=== PATIENT | male | born 1945 | race Caucasian/White ===

== ENCOUNTER 2017-01-24 20:37 | Emergency (ER) | payer MEDICARE ==
[2017-01-24] MEDS ORDERED: RX INFO: IV CONTRAST WAS GIVEN 1 EACH MISC MISCELLANE PRN (20:59)
[2017-01-24] MEDS ORDERED: SODIUM CHLORIDE 0.9% 1,000 ML IV STA (20:59)
[2017-01-24] MEDS ORDERED: HYDROmorphone 1 MG/ML 1 ML SYRINGE IVP STA ×3 (20:59→23:39)
[2017-01-24] MEDS ORDERED: ACETAMINOPHEN IV (For NPO) 1,000 MG in EMPTY BAG 1 BAG IVPB ONE (20:59)
[2017-01-24] MEDS ORDERED: ONDANSETRON 4 MG/2 ML VIAL IVP STA (20:59)
--- NOTE | 2017-01-24 21:02 | ED ---
Abdominal Pain HPI - General Chief Complaint: Abdominal Pain Stated Complaint: abd pain Time Seen by Provider: 01/24/17 20:54 Source: patient, RN notes reviewed Mode of arrival: wheelchair Limitations: no limitations - History of Present Illness Initial Comments: 71 yo female presents to the ER with cc of left sided abdominal pain x 1 day. Patient states that 2 hours ago he developed this left-sided abdominal pain. Patient states the pain is moderate it radiates to the back. Patient is eating changes in urination. Patient states it is tender to touch. Patient denies any cough cold runny nose with it. Patient denies any history of a pain like this in the past. Patient states that he hasn't had any other symptoms with this. Patient states just having this terrible pain to the left lower quadrant. There has been no other symptoms in the patient. Patient denies any recent shortness of breath, chest pain, back pain, nausea vomiting, numbness or tingling, dysuria or hematuria, constipation or diarrhea, headaches or visual changes, or any other current symptoms. - Related Data Home Medications Medication Instructions Recorded Confirmed Warfarin [Coumadin] 2.5 mg PO SA 02/15/16 01/24/17 Alfuzosin HCl [Alfuzosin HCl ER] 10 mg PO DAILY 01/24/17 01/24/17 Aspirin EC [Ecotrin Low Dose] 81 mg PO DAILY 01/24/17 01/24/17 Atenolol [Tenormin] 50 mg PO BID 01/24/17 01/24/17 Atorvastatin Calcium [Lipitor] 10 mg PO HS 01/24/17 01/24/17 Diltiazem HCl [Cartia Xt] 180 mg PO DAILY 01/24/17 01/24/17 Gabapentin [Neurontin] 100 mg PO TID 01/24/17 01/24/17 HYDROcodone/APAP 10-325MG [[place] 1 tab PO Q8H PRN 01/24/17 01/24/17 10-325] Latanoprost Ophth [Xalatan 0.005%] 1 drops BOTH EYES HS 01/24/17 01/24/17 Metformin(Unknown Dose) 1 tab PO BID 01/24/17 01/24/17 Warfarin [Coumadin] 5 mg PO SUMOTUWETHFR 01/24/17 01/24/17 Previous Rx's Medication Instructions Recorded Hydrocodone/Acetaminophen [[place] 1 each PO Q6HR PRN #20 tab 01/24/17 5-325] Hydrocodone/Acetaminophen [[place] 1 each PO Q6HR PRN #20 tab 01/24/17 5-325] Ondansetron Odt [Zofran ODT] 4 mg PO Q8HR PRN #20 tab 01/24/17 Tamsulosin [Flomax] 0.4 mg PO DAILY #5 cap 01/24/17 Allergies Allergy/AdvReac Type Severity Reaction Status Date / Time No Known Allergies Allergy Verified 01/24/17 21:12 Review of Systems ROS Statement: Those systems with pertinent positive or pertinent negative responses have been documented in the HPI. ROS Other: All systems not noted in ROS Statement are negative. Past Medical History Past Medical History: Atrial Fibrillation, Coronary Artery Disease (CAD), Diabetes Mellitus, Hyperlipidemia, Hypertension History of Any Multi-Drug Resistant Organisms: None Reported Past Surgical History: Heart Catheterization Past Psychological History: No Psychological Hx Reported Smoking Status: Never smoker Past Alcohol Use History: None Reported Past Drug Use History: None Reported General Exam - General Exam Comments Initial Comments: General: The patient is awake and alert, in no distress, and does not appear acutely ill. Eye: Pupils are equal, round and reactive to light, extra-ocular movements are intact; there is normal conjunctiva bilaterally. No signs of icterus. Ears, nose, mouth and throat: There are moist mucous membranes and no oral lesions. Neck: The neck is supple, there is no tenderness. Cardiovascular: There is a regular rate and rhythm. No murmur, rub or gallop is appreciated. Respiratory: Lungs are clear to auscultation, respirations are non-labored, breath sounds are equal. No wheezes, stridor, rales, or rhonchi. Gastrointestinal: Soft, non-distended, left lower quadrant tenderness of the abdomen without masses or organomegaly noted. There is no rebound or guarding present. No CVA tenderness. Bowel sounds are unremarkable. Back: There is no tenderness to palpation in the midline. There is no obvious deformity. No rashes noted. Musculoskeletal: Normal ROM, no tenderness, There is no pedal edema. There is no calf tenderness or swelling. Sensation intact. Pulses equal bilaterally 2+. Neurological: CN II-XII intact, There are no obvious motor or sensory deficits. Coordination appears grossly intact. Speech is normal. Skin: Skin is warm and dry and no rashes or lesions are noted. Psychiatric: Cooperative, appropriate mood & affect, normal judgment. Limitations: no limitations Course Vital Signs 01/24/17 01/24/17 01/24/17 20:43 21:34 22:28 Temperature 99.2 F 99.2 F 98.9 F Pulse Rate 113 H 103 H 100 Respiratory 20 20 18 Rate Blood Pressure 149/79 168/90 122/83 O2 Sat by Pulse 96 95 94 L Oximetry Medical Decision Making - Medical Decision Making 71-year-old male presents for left lower quadrant tenderness of the abdomen. At this time CAT scan is reviewed that does show a left ureteral calculus. At this time patient does have blood in the urine and is feeling better with medication. We did discuss the fluid noticed on the CAT scan about the fluid around the heart. He sees his medical coding technician. We did discuss follow-up within the morning for a echocardiogram. Family stated they understood the plan. Patient is feeling better at this time and will be discharged home. All his questions have been answered. - Lab Data Result diagrams: 01/24/17 21:20 01/24/17 21:20 Lab Results 01/24/17 01/24/17 01/24/17 Range/Units 21:20 21:20 21:20 WBC 10.2 (3.8-10.6) k/uL RBC 4.79 (4.30-5.90) m/uL Hgb 14.5 (13.0-17.5) gm/dL Hct 42.9 (39.0-53.0) % MCV 89.5 (80.0-100.0) fL MCH 30.3 (25.0-35.0) pg MCHC 33.8 (31.0-37.0) g/dL RDW 14.0 (11.5-15.5) % Plt Count 262 (150-450) k/uL Neutrophils % 76 % Lymphocytes % 16 % Monocytes % 5 % Eosinophils % 2 % Basophils % 0 % Neutrophils # 7.7 (1.3-7.7) k/uL Lymphocytes # 1.6 (1.0-4.8) k/uL Monocytes # 0.5 (0-1.0) k/uL Eosinophils # 0.2 (0-0.7) k/uL Basophils # 0.0 (0-0.2) k/uL PT (9.0-12.0) sec INR (<1.1) APTT (22.0-30.0) sec Sodium 143 (137-145) mmol/L Potassium 4.2 (3.5-5.1) mmol/L Chloride 105 (98-107) mmol/L Carbon Dioxide 23 (22-30) mmol/L Anion Gap 15 mmol/L BUN 20 (9-20) mg/dL Creatinine 1.15 (0.66-1.25) mg/dL Est GFR (MDRD) Af Amer >60 (>60 ml/min/1.73 sqM) Est GFR (MDRD) Non-Af >60 (>60 ml/min/1.73 sqM) Glucose 170 H (74-99) mg/dL Plasma Lactic Acid John Paul (0.7-2.0) mmol/L Calcium 9.5 (8.4-10.2) mg/dL Total Bilirubin 0.7 (0.2-1.3) mg/dL AST 41 (17-59) U/L ALT 51 (21-72) U/L Alkaline Phosphatase 92 (38-126) U/L Total Protein 8.2 (6.3-8.2) g/dL Albumin 4.6 (3.5-5.0) g/dL Amylase 80 (30-110) U/L Lipase 180 (23-300) U/L Urine Color Urine Appearance (Clear) Urine pH (5.0-8.0) Ur Specific [place] (1.001-1.035) Urine Protein (Negative) Urine Glucose (UA) (Negative) Urine Ketones (Negative) Urine Blood (Negative) Urine Nitrate (Negative) Urine Bilirubin (Negative) Urine Urobilinogen (<2.0) mg/dL Ur Leukocyte Esterase (Negative) Urine RBC (0-5) /hpf Urine WBC (0-5) /hpf Ur Squamous Epith Cells (0-4) /hpf Urine Mucus (None) /hpf Acetone, Qual (Negative) Blood Type O Positive Blood Type Recheck No Antibody Screen NEGATIVE Spec Expiration Date 01/27/2017 - 231901/24/17 01/24/17 01/24/17 Range/Units 21:20 21:20 21:20 WBC (3.8-10.6) k/uL RBC (4.30-5.90) m/uL Hgb (13.0-17.5) gm/dL Hct (39.0-53.0) % MCV (80.0-100.0) fL MCH (25.0-35.0) pg MCHC (31.0-37.0) g/dL RDW (11.5-15.5) % Plt Count (150-450) k/uL Neutrophils % % Lymphocytes % % Monocytes % % Eosinophils % % Basophils % % Neutrophils # (1.3-7.7) k/uL Lymphocytes # (1.0-4.8) k/uL Monocytes # (0-1.0) k/uL Eosinophils # (0-0.7) k/uL Basophils # (0-0.2) k/uL PT 29.4 H (9.0-12.0) sec INR 3.0 (<1.1) APTT 36.4 H (22.0-30.0) sec Sodium (137-145) mmol/L Potassium (3.5-5.1) mmol/L Chloride (98-107) mmol/L Carbon Dioxide (22-30) mmol/L Anion Gap mmol/L BUN (9-20) mg/dL Creatinine (0.66-1.25) mg/dL Est GFR (MDRD) Af Amer (>60 ml/min/1.73 sqM) Est GFR (MDRD) Non-Af (>60 ml/min/1.73 sqM) Glucose (74-99) mg/dL Plasma Lactic Acid John [place] 2.0 (0.7-2.0) mmol/L Calcium (8.4-10.2) mg/dL Total Bilirubin (0.2-1.3) mg/dL AST (17-59) U/L ALT (21-72) U/L Alkaline Phosphatase (38-126) U/L Total Protein (6.3-8.2) g/dL Albumin (3.5-5.0) g/dL Amylase (30-110) U/L Lipase (23-300) U/L Urine Color Yellow Urine Appearance Clear (Clear) Urine pH 5.0 (5.0-8.0) Ur Specific [place] 1.021 (1.001-1.035) Urine Protein Trace H (Negative) Urine Glucose (UA) Negative (Negative) Urine Ketones Negative (Negative) Urine Blood Moderate H (Negative) Urine Nitrate Negative (Negative) Urine Bilirubin Negative (Negative) Urine Urobilinogen <2.0 (<2.0) mg/dL Ur Leukocyte Esterase Negative (Negative) Urine RBC 90 H (0-5) /hpf Urine WBC 3 (0-5) /hpf Ur Squamous Epith Cells <1 (0-4) /hpf Urine Mucus Rare H (None) /hpf Acetone, Qual (Negative) Blood Type Blood Type Recheck Antibody Screen Spec Expiration Date 01/24/17 Range/Units 21:20 WBC (3.8-10.6) k/uL RBC (4.30-5.90) m/uL Hgb (13.0-17.5) gm/dL Hct (39.0-53.0) % MCV (80.0-100.0) fL MCH (25.0-35.0) pg MCHC (31.0-37.0) g/dL RDW (11.5-15.5) % Plt Count (150-450) k/uL Neutrophils % % Lymphocytes % % Monocytes % % Eosinophils % % Basophils % % Neutrophils # (1.3-7.7) k/uL Lymphocytes # (1.0-4.8) k/uL Monocytes # (0-1.0) k/uL Eosinophils # (0-0.7) k/uL Basophils # (0-0.2) k/uL PT (9.0-12.0) sec INR (<1.1) APTT (22.0-30.0) sec Sodium (137-145) mmol/L Potassium (3.5-5.1) mmol/L Chloride (98-107) mmol/L Carbon Dioxide (22-30) mmol/L Anion Gap mmol/L BUN (9-20) mg/dL Creatinine (0.66-1.25) mg/dL Est GFR (MDRD) Af Amer (>60 ml/min/1.73 sqM) Est GFR (MDRD) Non-Af (>60 ml/min/1.73 sqM) Glucose (74-99) mg/dL Plasma Lactic Acid [place] (0.7-2.0) mmol/L Calcium (8.4-10.2) mg/dL Total Bilirubin (0.2-1.3) mg/dL AST (17-59) U/L ALT (21-72) U/L Alkaline Phosphatase (38-126) U/L Total Protein (6.3-8.2) g/dL Albumin (3.5-5.0) g/dL Amylase (30-110) U/L Lipase (23-300) U/L Urine Color Urine Appearance (Clear) Urine pH (5.0-8.0) Ur Specific [place] (1.001-1.035) Urine Protein (Negative) Urine Glucose (UA) (Negative) Urine Ketones (Negative) Urine Blood (Negative) Urine Nitrate (Negative) Urine Bilirubin (Negative) Urine Urobilinogen (<2.0) mg/dL Ur Leukocyte Esterase (Negative) Urine RBC (0-5) /hpf Urine WBC (0-5) /hpf Ur Squamous Epith Cells (0-4) /hpf Urine Mucus (None) /hpf Acetone, Qual Negative (Negative) Blood Type Blood Type Recheck Antibody Screen Spec Expiration Date - Radiology Data Radiology results: report reviewed, image reviewed Disposition Clinical Impression: Pericardial cyst, Left ureteral calculus Disposition: HOME SELF-CARE Condition: Stable Instructions: Kidney Stones (ED) Additional Instructions: Please use medication as discussed. Please follow up with family doctor if symptoms have not improved over the next two days. Please return to the emergency room if your symptoms increase or worsen or for any other concerns. Please contact her medical coding technician in the morning regarding her CT results of the pericardial cyst for follow-up. Prescriptions: Hydrocodone/Acetaminophen [[place] 5-325] 1 each PO Q6HR PRN #20 tab PRN Reason: Pain Hydrocodone/Acetaminophen [[place] 5-325] 1 each PO Q6HR PRN #20 tab PRN Reason: Pain Ondansetron Odt [Zofran ODT] 4 mg PO Q8HR PRN #20 tab PRN Reason: Nausea Tamsulosin [Flomax] 0.4 mg PO DAILY #5 cap Referrals: Misael Oro DO [Primary Care Provider] - 1-2 days Time of Disposition: 23:37
[2017-01-24 21:36] LABS: Basophils % (A) 0 %; CH 30.5; CHCM 34.2; Eosinophils # (A) 0.2 k/uL (0-0.7); Eosinophils % (A) 2 %; HCT 42.9 % (39.0-53.0); HDW 3.05; HGB 14.5 gm/dL (13.0-17.5); Luc # (Auto) 0.15; Luc % (Auto) 2; Lymphocytes # (A) 1.6 k/uL (1.0-4.8); Lymphocytes % (A) 16 %; MCH 30.3 pg (25.0-35.0); MCHC 33.8 g/dL (31.0-37.0); MCV 89.5 fL (80.0-100.0); Mean Platelet Volume 7.3; Monocytes # (A) 0.5 k/uL (0-1.0); Monocytes % (A) 5 %; Neutrophils # (A) 7.7 k/uL (1.3-7.7); Neutrophils % (A) 76 %; RBC 4.79 m/uL (4.30-5.90); WBC 10.2 k/uL (3.8-10.6); WBC (Perox) 9.77
[2017-01-24 21:46] LABS: Appearance,Urine Clear (Clear); Bilirubin,Urine Negative (Negative); Glucose,Urine (UA) Negative (Negative); Ketones,Urine Negative (Negative); Leukocyte Esterase,Urine Negative (Negative); Mucus,Urine Rare /hpf; Nitrite,Urine Negative (Negative); Particle Count 1364; Protein,Urine Trace (Negative); RBC,Urine 90 /hpf (0-5); Specific Gravity,Urine 1.021 (1.001-1.035); Squamous Epithelial Cell,Urine <1 /hpf (0-4); UA Billing (MACRO vs. MICRO) MICRO; Urobilinogen,Urine <2.0 mg/dL (<2.0); WBC,Urine 3 /hpf (0-5)
[2017-01-24 21:51] LABS: Partial Thromboplastin Time 36.4 sec (22.0-30.0); Prothrombin Time 29.4 sec (9.0-12.0)
[2017-01-24 21:52] LABS: ALT 51 U/L (21-72); AST 41 U/L (17-59); Alkaline Phosphatase 92 U/L (38-126); Amylase 80 U/L (30-110); Anion Gap 15 mmol/L; Blood Urea Nitrogen 20 mg/dL (9-20); Calcium 9.5 mg/dL (8.4-10.2); Carbon Dioxide 23 mmol/L (22-30); Chloride 105 mmol/L (98-107); Glucose 170 mg/dL (74-99); Non-African American GFR(MDRD) >60 (>60 ml/min/1.73 sqM); Potassium 4.2 mmol/L (3.5-5.1); Sodium 143 mmol/L (137-145); Total Bilirubin 0.7 mg/dL (0.2-1.3); Total Protein 8.2 g/dL (6.3-8.2)
[2017-01-24 22:31] VITALS: RESP 18
[2017-01-24] MEDS ORDERED: KETOROLAC 30 MG/ML 1 ML VIAL IVP STA (23:03)
--- NOTE | 2017-01-24 23:05 | CT ---
EXAM: CT Abdomen and Pelvis With Intravenous Contrast. CLINICAL HISTORY: Reason: Pain TECHNIQUE: Axial computed tomography images of the abdomen and pelvis with intravenous contrast. CTDI is 37.88 mGy and DLP is 1603 mGy-cm COMPARISON: No relevant prior studies available. FINDINGS: Lower thorax: Linear subpleural opacity suggesting atelectasis or scarring at the posterior medial lung bases. There is coronary artery calcification present. Thin-walled 2.4 cm low-density focus along side the right atrium suggests either the presence of some pericardial fluid or a small pericardial cyst, just anterior and superior to which there is a thin low-density rim of additional fluid or second possible cyst. ABDOMEN: Liver: Mildly diminished hepatic density consistent with hepatic steatosis. Gallbladder and bile ducts: Unremarkable. No calcified stones. No ductal dilation. Pancreas: Slight fatty infiltration of the pancreas within which there is a 16 mm fat density focus in the uncinate process, suggesting a small lipoma. Spleen: Unremarkable. No splenomegaly. Adrenals: Unremarkable. No mass. Kidneys and ureters: Tiny 1-2 mm distal left ureter stone just proximal to the UVJ with mild hydronephrosis and hydroureter, perinephric and periureteral stranding, and delay in enhancement and excretion from the left kidney compared to the right. An exophytic 2.9 cm posterior upper to mid left renal cyst is seen. The right kidney is normal. PELVIS: Bladder: Unremarkable. No mass. Reproductive: Small calcifications are seen centrally within the prostate gland. Appendix: No findings to suggest acute appendicitis. ABDOMEN + PELVIS: Stomach and bowel: Scattered colonic diverticulosis most notably distally, without evidence of diverticulitis or intestinal obstruction. Peritoneum: Unremarkable. No significant fluid collection. No free air. Lymph nodes: Unremarkable. No enlarged lymph nodes. Vasculature: Multifocal atherosclerotic calcifications throughout. Bones: Mild reverse S-shaped curvature of the lower thoracic and lumbar spine with multilevel degenerative changes present. No acute fracture. IMPRESSION: 1. Tiny distal left ureter stone with mild secondary signs of urinary tract obstruction. 2. Additional findings, including coronary artery calcification and possible one or 2 small right sided pericardial cysts versus fluid, as above.
[2017-01-24] MEDS ORDERED: ONDANSETRON 4 MG ODT STARTER PACK 2 TAB BTL PO STA (23:39)
[2017-01-24] MEDS ORDERED: TAMSULOSIN 0.4 MG CAP.ER.24H PO STA (23:39)
[2017-01-24] MEDS ORDERED: traMADol 50 MG STARTER PACK 3 TAB BTL PO STA (23:39)
[2017-01-24 23:48] VITALS: BP 125/71; PULSE 98; TEMP 98.3
== END 2017-01-24 23:57 | disposition home or self-care (01) ==
LOC: EC 20:37
DX: N13.2 Hydronephrosis with renal and ureteral calculous obstruction (principal); I25.10 Atherosclerotic heart disease of native coronary artery without angina pectoris; E11.9 Type 2 diabetes mellitus without complications; I10 Essential (primary) hypertension; E78.5 Hyperlipidemia, unspecified; Z98.61 Coronary angioplasty status; Z79.899 Other long term (current) drug therapy; Z79.82 Long term (current) use of aspirin; I48.91 Unspecified atrial fibrillation; Z79.84 Long term (current) use of oral hypoglycemic drugs
CPT/HCPCS: 36415; 86900; 86901; 80053; 82150; 82009; 83605; 83690; 85025; 85610; 85730; 86850; 81001; 87040; 87086; 74177; 96374; 96375; 96376; 96361; 99284; J2405; J1885; J1170; Q9967; J0131; S0119

== ENCOUNTER 2018-03-12 07:12 | Day surgery (SDC) | payer MEDICARE ==
[2018-03-02 13:42] VITALS: BMI 34.2
[~2018-03-12 07:12] MED LIST: LACTATED RINGERS 1,000 ML IV SCH; SODIUM CHLORIDE 0.9% 1,000 ML IV SCH
[2018-03-12 07:54] LABS: Glucose,Whole Blood 145 mg/dL (75-99)
[2018-03-12 08:18] LABS: Basophils % (A) 0 %; Eosinophils # (A) 0.3 k/uL (0-0.7); Eosinophils % (A) 4 %; HCT 38.2 % (39.0-53.0); HGB 13.5 gm/dL (13.0-17.5); Lymphocytes # (A) 1.7 k/uL (1.0-4.8); Lymphocytes % (A) 21 %; MCH 30.3 pg (25.0-35.0); MCHC 35.2 g/dL (31.0-37.0); MCV 86.1 fL (80.0-100.0); Monocytes # (A) 0.5 k/uL (0-1.0); Monocytes % (A) 6 %; Neutrophils # (A) 5.2 k/uL (1.3-7.7); Neutrophils % (A) 66 %; Platelet Count 289 k/uL (150-450); RBC 4.44 m/uL (4.30-5.90); RDW 14.4 % (11.5-15.5); WBC 7.8 k/uL (3.8-10.6)
[2018-03-12 08:23] LABS: INR 2.8 (<1.2); Prothrombin Time 25.3 sec (9.0-12.0)
[2018-03-12] MEDS ORDERED: ePHEDrine SULFATE/0.9% NACL/PF 50 MG/5 ML SYRINGE IV ONE (08:23)
[2018-03-12] MEDS ORDERED: IV FLUID CONTINUATION 900 ML IV ONE (08:23)
[2018-03-12] MEDS ORDERED: PROTAMINE SULFATE 10 MG/ML 5 ML VIAL IV ONE (08:23)
[2018-03-12] MEDS ORDERED: PHENYLEPHRINE-0.9% NACL SYG 1 MG/10 ML SYRINGE ONE (08:23)
[2018-03-12] MEDS ORDERED: MIDAZOLAM 2 MG/2 ML VIAL ONE (08:23)
[2018-03-12] MEDS ORDERED: SUCCINYLCHOLINE CHLORIDE 100 MG/5 ML SYR IV ONE (08:23)
[2018-03-12] MEDS ORDERED: fentaNYL (PF) 50 MCG/ML 2 ML AMP ONE (08:23)
[2018-03-12] MEDS ORDERED: LIDOCAINE 1% INJ 10MG/ML (20 ML MDV) ONE (08:23)
[2018-03-12] MEDS ORDERED: PROPOFOL 10 MG/ML 20 ML VIAL IV ONE (08:23)
[2018-03-12] MEDS ORDERED: HEPARIN SODIUM,PORCINE 10,000 UNIT/ML 1 ML VIAL ONE (08:23)
[2018-03-12 08:30] LABS: Anion Gap 16 mmol/L; Blood Urea Nitrogen 19 mg/dL (9-20); Calcium 9.5 mg/dL (8.4-10.2); Carbon Dioxide 22 mmol/L (22-30); Chloride 107 mmol/L (98-107); Glucose 148 mg/dL (74-99); Potassium 4.5 mmol/L (3.5-5.1); Sodium 145 mmol/L (137-145)
[2018-03-12] MEDS ORDERED: LIDOCAINE 2% INJ 20 MG/ML SQ ONE ×2 (09:12→11:53)
[2018-03-12] MEDS ORDERED: HEPARIN SOD,PORK IN 0.45% NACL 25,000 UNIT in 0.45% NACL 1 500ML.BAG IV ONE (09:14)
[2018-03-12] MEDS ORDERED: IOPAMIDOL-370 100ML BTL INJ ONE (11:53)
[2018-03-12] MEDS ORDERED: SODIUM CHLORIDE 0.9% 500 ML IV ONE (12:15)
[2018-03-12] MEDS ORDERED: HYDROcodone/APAP 5-325MG 1 EACH TAB PO PRN (13:08)
[2018-03-12] MEDS ORDERED: ACETAMINOPHEN TAB 325 MG TAB PO PRN (13:10)
[2018-03-12] MEDS ORDERED: ACETAMINOPHEN IV (For NPO) 1,000 MG in EMPTY BAG 1 BAG IVPB ONE (13:30)
--- NOTE | 2018-03-12 13:35 | P.PCN ---
Preoperative Diagnosis: Indication for the procedure Persistent symptomatic atrial fibrillation with RVR, difficult rate control Procedures performed Invasive hemodynamic monitoring while general anesthesia, right femoral arterial line for monitoring and sampling Comprehensive diagnostic EP study without attempted arrhythmia induction CS pacing and recording Catheter the mapping of the tachycardia (NOT 3D mapping) Intracardiac echocardiography Transseptal catheterization Pulmonary vein isolation with transseptal and comprehensive EPS, [id number] Linear ablation for A. fib, [id number] Electrical cardioversion, external Procedure details Patient was brought to the EP lab in a fasting state. Written informed consent was obtained prior to the procedure. Procedure performed under general anesthesia After initial muscle relaxant use, muscle relaxants were not given thereafter in order to assess phrenic nerve during procedure Patient prepped and draped as per protocol Full cryo-set up with standard preparation of the cryoablation tools done Femoral Venous access obtained on the right and left groins Sheaths placed Diagnostic catheters for the high right atrium, phrenic nerve stimulation and pacing, His bundle, RV and coronary sinus placed Intracardiac echo catheter placed Long sheath placed in the right atrium Left and right transseptal catheterization performed under intracardiac echo guidance Intravenous heparin with aCT above 300 Later, catheter positioning and balloon positioning under intracardiac echo Baseline measurements Patient was in atrial fibrillation at the start of the study. 12-lead ECG suggested organized atrial tachycardia home intracardiac (suggested atrial fibrillation After electrical cardioversion AH interval 82 ms HV interval 50 ms, QRS 103 ms, QT interval 403 ms Sinus cycle length 990 ms, MS interval 185 ms Comprehensive diagnostic EP study with drug infusion Atrial pacing performed from the high right atrium and the coronary sinus Sinus node recovery times a 600 504 100 ms were 1216, 1051 and 1342 ms. Corresponding corrected sinus node recovery times were within normal limits AV node Wenckebach block 420 ms Slow pathway conduction 400ms VA Wenckebach block 550 ms Transseptal catheterization performed RA pressure 26/18/22 LA pressure 34/9/23 Transseptal catheterization performed with standard sheath. The cryoablation sheath was then placed with an over the wire exchange without any acute complications. All 4 pulmonary veins were isolated in the following sequence: Left superior followed by left inferior followed by right superior followed by right inferior The cryo-ablation balloon was placed at the os of each vein 1.5 mL of IV dye was injected to confirm an occluded vein Goal during cryoablation was to achieve -30C in the first 30 seconds. If not the balloon was repositioned to obtain this result After completion of Cryoblation with durations from 180-240 seconds, entrance block was confirmed with the Attain circular catheter in a roving fashion around the antrum of the pulmonary veins Phrenic nerve pacing was performed from the SVC, right innominate vein area and diaphragm voltage was monitored as well as manually Parameter goals for each cryo freeze -30C by 30 seconds -40C by 60 seconds Mediated between minus 40-55 Thaw time greater than 10 seconds Balloon visualized by intracardiac echo to ensure that the proximal one third was within the left atrium/antrum Left superior pulmonary vein 3 minute lesion, complete isolation Left inferior pulmonary vein 3 minutes followed by 3 minutes of cryoablation, complete isolation Right superior pulmonary vein, during phrenic nerve pacing Total of 345 seconds of Cryoblation, 148 seconds followed by 77 seconds seconds followed by 120 seconds Right inferior pulmonary vein, during phrenic nerve pacing 3 minutes followed by 2 minutes, cryo lesions, complete isolation At the end of the procedure the Achieve catheter was once again used to check for entrance block Phrenic nerve stimulation was performed to confirm diaphragmatic stimulation the end of the procedure Cine fluoroscopy was performed at the very end of the procedure to confirm movement of both diaphragms with inspiration and expiration At the end of the procedure the patient was extubated Heparin was reversed Venous sheaths were removed and hemostasis assured Result Patient was in atrial fibrillation at the start of the study. 12-lead ECG suggested organized atrial tachycardia home intracardiac (suggested atrial fibrillation Successful pulmonary vein isolation using cryo-ablation Roofline in the left atrium Electrical cardioversion for extrapulmonary sources of atrial fibrillation Complete entrance block in all 4 veins confirmed No evidence for phrenic nerve injury at the end of the procedure Left-sided esophagus, extreme left, requiring deflection Anesthesia: GETA Disposition: observation
[2018-03-12] MEDS: GABAPENTIN 100 MG CAP PO SCH ×2 (17:46→21:35)
[2018-03-12 17:50] LABS: Glucose,Whole Blood 120 mg/dL (75-99)
[2018-03-12] MEDS ORDERED: WARFARIN 2.5 MG TAB PO SCH (18:00)
[2018-03-12 20:44] LABS: Glucose,Whole Blood 131 mg/dL (75-99)
[2018-03-12] MEDS ORDERED: ALFUZOSIN HCL 10 MG PO SCH (21:00)
[2018-03-12] MEDS ORDERED: ATORVASTATIN 10 MG TAB PO SCH (21:00)
[2018-03-12] MEDS: FLECAINIDE 50 MG TAB PO SCH (21:35)
[2018-03-12 23:40] VITALS: RESP 18
[2018-03-13 06:57] LABS: Glucose,Whole Blood 141 mg/dL (75-99)
[2018-03-13 07:01] LABS: INR 2.8 (<1.2); Prothrombin Time 25.3 sec (9.0-12.0)
[2018-03-13 07:11] LABS: Anion Gap 12 mmol/L; Blood Urea Nitrogen 15 mg/dL (9-20); Calcium 9.4 mg/dL (8.4-10.2); Carbon Dioxide 27 mmol/L (22-30); Chloride 105 mmol/L (98-107); Glucose 140 mg/dL (74-99); Potassium 4.6 mmol/L (3.5-5.1); Sodium 144 mmol/L (137-145)
[2018-03-13] MEDS ORDERED: RX INFO: IV CONTRAST WAS GIVEN 1 EACH MISC MISCELLANE PRN (07:55)
[2018-03-13] MEDS: GABAPENTIN 100 MG CAP PO SCH (08:01)
[2018-03-13] MEDS: FLECAINIDE 50 MG TAB PO SCH (08:01)
[2018-03-13] MEDS ORDERED: ASPIRIN 81 MG PO SCH (09:00)
[2018-03-13] MEDS ORDERED: DILTIAZEM CD 180 MG CAP.ER.24H PO SCH (09:00)
[2018-03-13] MEDS ORDERED: TAMSULOSIN 0.4 MG CAP.ER.24H PO SCH (09:00)
[2018-03-13 11:32] VITALS: TEMP 98.4
--- NOTE | 2018-03-13 12:06 | CT ---
EXAMINATION TYPE: CT chest w con DATE OF EXAM: 03/13/2018 COMPARISON: NONE HISTORY: A-Fib. Status post ablation. CT DLP: 1021.8 mGycm. Automated Exposure Control for Dose Reduction was Utilized. TECHNIQUE: CT scan of the thorax is performed following with IV Contrast, patient injected with 100 mL of Isovue 300. FINDINGS: LUNGS: The lungs are grossly clear, there is no concerning parenchymal mass or nodule identified. Mul tifocal subsegmental atelectasis is identified in addition to groundglass opacity within the right lo wer lobe superior segment on series 4 image 76 and right lower lobe groundglass opacity on image 82. There is a 6 mm right upper lobe pulmonary nodule is present on image 65. Incidental note of an azygo s fissure and azygos lobe are seen. There is no pleural effusion or pneumothorax seen. The tracheo bronchial tree is patent. MEDIASTINUM: Incidental note is made of a right atrial epicardial cyst measuring 2.9 cm. Additional c ystic structure also likely represents an epicardial cyst measuring 1.6 cm rather than a lymph node. Trace pericardial effusion is seen. No discrete pulmonary vein proximal/central filling defect or web is noted. No evidence of contrast extravasation is identified. A solitary enlarged subcarinal lymph node measures 1.7 cm in short axis. No pneumomediastinum is seen. The esophagus adjacent to the left atrium does not demonstrate evidence of wall thickening to relate to reactive esophagitis. Severe thr ee-vessel coronary artery calcifications are seen. OTHER: A partially visualized exophytic left upper pole 3.3 cm renal lesion likely represents a renal cyst. Mild multilevel degenerative changes of the thoracic spine are noted. IMPRESSION: 1. No evidence of esophageal thickening to indicate postablation esophagitis, no evidence of pneumome diastinum or extraluminal esophageal air, and no evidence of filling defect in the central pulmonary veins. 2. 6 mm right upper lobe pulmonary nodule and multifocal right lower lobe groundglass opacities that could represent atelectasis, pneumonitis or less likely neoplasm such as bronchoalveolar carcinoma. G iven these groundglass opacities short-term follow-up in 3 months is recommended.
[2018-03-13 12:27] LABS: Glucose,Whole Blood 122 mg/dL (75-99)
--- NOTE | 2018-03-13 12:52 | P.DS ---
Providers Attending physician: Chun Phillips Primary care physician: [facility] Course: Patient is doing well. No chest discomfort dizziness lightheadedness palpitations. He maintains sinus rhythm. On examination he is afebrile 98.4F pulse rate 100 beats a minute blood pressure 133/75 mmHg aspiration is normal Breath sounds are clear Heart sounds S1-S2 normal no murmurs no gallops no rub Abdomen is soft nontender The extremities are warm no edema and groins of healed well without any hematoma. Bruising is noted CT of the chest with contrast did not show any evidence for esophageal injury 6 mm right upper lobe pulmonary nodule was noted and needs follow-up evaluation in 3months Plan Discharge home today on flecainide 100 mg twice daily Coumadin and diltiazem and a baby aspirin as well as atorvastatin Metformin is on hold for 2 days and then he resumes again Patient Condition at Discharge: Stable Plan - Discharge Summary New Discharge Prescriptions: No Action Warfarin [Coumadin] 2.5 mg PO MOFR Alfuzosin HCl [Alfuzosin HCl ER] 10 mg PO HS Metformin(Unknown Dose) 1 tab PO BID Latanoprost Ophth [Xalatan 0.005%] 1 drops BOTH EYES HS Gabapentin [Neurontin] 100 mg PO TID Diltiazem HCl [Cartia Xt] 180 mg PO DAILY Atorvastatin Calcium [Lipitor] 10 mg PO HS Aspirin EC [Ecotrin Low Dose] 81 mg PO DAILY Warfarin [Coumadin] 5 mg PO SUTUWETHSA Hydrocodone/Acetaminophen [[place] 5-325] 1 each PO Q6HR PRN #20 tab PRN Reason: Pain Tamsulosin [Flomax] 0.4 mg PO DAILY #5 cap Meloxicam [Mobic] 7.5 mg PO BID Flecainide Acetate 100 mg PO BID Discharge Medication List Warfarin [Coumadin] 2.5 mg PO MOFR 02/15/16 [History] Alfuzosin HCl [Alfuzosin HCl ER] 10 mg PO HS 01/24/17 [History] Aspirin EC [Ecotrin Low Dose] 81 mg PO DAILY 01/24/17 [History] Atorvastatin Calcium [Lipitor] 10 mg PO HS 01/24/17 [History] Diltiazem HCl [Cartia Xt] 180 mg PO DAILY 01/24/17 [History] Gabapentin [Neurontin] 100 mg PO TID 01/24/17 [History] Hydrocodone/Acetaminophen [[place] 5-325] 1 each PO Q6HR PRN #20 tab 01/24/17 [Rx] Latanoprost Ophth [Xalatan 0.005%] 1 drops BOTH EYES HS 01/24/17 [History] Metformin(Unknown Dose) 1 tab PO BID 01/24/17 [History] Tamsulosin [Flomax] 0.4 mg PO DAILY #5 cap 01/24/17 [Rx] Warfarin [Coumadin] 5 mg PO SUTUWETHSA 01/24/17 [History] Meloxicam [Mobic] 7.5 mg PO BID 03/02/18 [History] Flecainide Acetate 100 mg PO BID 03/12/18 [History] Follow up Appointment(s)/Referral(s): Constantino Mayfield MD [STAFF PHYSICIAN] - 03/19/18 2:00 pm
[2018-03-13 16:21] VITALS: BP 143/75; PULSE 105
[2018-03-13] MEDS ORDERED: WARFARIN 5 MG TAB PO SCH (18:00)
== END 2018-03-13 17:05 | disposition home or self-care (01) ==
LOC: CATHEP 07:12 → 3OBS 12:14 → CATHEP 03-13 17:05
PROVIDERS: ATTEND Internal Medicine Clinical Cardiac Electrophysiology
DX: I48.1 Persistent atrial fibrillation (principal); R00.0 Tachycardia, unspecified; R91.8 Other nonspecific abnormal finding of lung field; R91.1 Solitary pulmonary nodule; I48.92 Unspecified atrial flutter; I11.0 Hypertensive heart disease with heart failure; I50.30 Unspecified diastolic (congestive) heart failure; E78.5 Hyperlipidemia, unspecified; E11.9 Type 2 diabetes mellitus without complications; G47.33 Obstructive sleep apnea (adult) (pediatric); Z99.89 Dependence on other enabling machines and devices; Z79.01 Long term (current) use of anticoagulants; Z79.84 Long term (current) use of oral hypoglycemic drugs; Z79.1 Long term (current) use of non-steroidal anti-inflammatories (NSAID); Z79.82 Long term (current) use of aspirin; Z79.899 Other long term (current) drug therapy; Z82.49 Family history of ischemic heart disease and other diseases of the circulatory system
CPT/HCPCS: 92960; 93662; 93609; 93656; 80048 ×2; 85025; 85610 ×2; 71260; C1769 ×5; C1894 ×3; C1730 ×2; C1759; C1893; C1733; C1766; J2001 ×2; J2250; J2720; J1644 ×2; J3010; J2370; J0330; J2704; Q9967 ×2

== ENCOUNTER → 2018-04-03 | Outpatient (CLI) | payer MEDICARE ==
--- NOTE | 2018-04-03 12:54 | US ---
EXAMINATION TYPE: Ultrasound MSK left shoulder DATE OF EXAM: 04/03/2018 COMPARISON: NONE CLINICAL HISTORY: 72-year-old male R22.32 localized swelling/mass/lump; left upper. Book Solicitor provided history: Patient noticed goose egg sized lump on the anterior upper left shoulde r at level of AC joint about 2 months ago; no prev imaging, not painful Technique: Multiple sonographic images of the superior left shoulder were obtained at the site of pat ient's palpable mildly. Subsequently, scanning along the greater tuberosity was performed. FINDINGS: At the site of patient's palpable and visually apparent lump, there is a large complex, circumscribed collection centered in the subcutaneous fat just deep to the skin surface measuring up to 5.8 x 4.1 x 2.3 cm. There is extensive internal complexity. No internal vascularity. Images show possible later al extension to the underlying AC joint. Because of this finding, the greater tuberosity was scanned. The soft tissues are attenuating but the re appears to be a full-thickness tear of both supraspinatus and infraspinatus tendons. The overlying deltoid musculature is hypertrophied. There is sound beam attenuation limiting assessment of the supraspinatous muscle belly. There is fatt y infiltration of the infraspinatus muscle belly noted. IMPRESSION: 1. A 5.8 cm complex collection appears to extend from the subjacent AC joint. A large complex ganglio n cyst is suggested. 2. Findings likely represent geyser sign secondary to an underlying massive rotator cuff tear of the entire supraspinatus and infraspinatus tendons. 3. MRI can be performed to confirm especially if there is progressive enlargement of the lump. Other river, excision can be performed if it becomes symptomatic. 4. Hypertrophied deltoid musculature likely accounts for the preserved range of motion in this patien t.
== END | disposition home or self-care (01) ==
LOC: RADUSWWP 11:42
PROVIDERS: ATTEND Family Medicine
DX: M62.89 Other specified disorders of muscle (principal)

== ENCOUNTER 2018-04-17 08:10 | Day surgery (SDC) | payer MEDICARE ==
[2018-04-12 17:36] VITALS: BMI 35.2
[~2018-04-17 08:10] MED LIST changes: -SODIUM CHLORIDE 0.9% 1,000 ML IV SCH
[2018-04-17 08:54] VITALS: TEMP 97.7
[2018-04-17] MEDS ORDERED: LIDOCAINE 1% 20 ML VIAL (10MG/ML) FOR IV START INTRADERMA ONE (08:54)
[2018-04-17 08:57] LABS: Glucose,Whole Blood 129 mg/dL (75-99)
[2018-04-17] MEDS ORDERED: LIDOCAINE 1% INJ 10MG/ML (20 ML MDV) ONE (09:31)
[2018-04-17] MEDS ORDERED: PROPOFOL 10 MG/ML 20 ML VIAL IV ONE (09:31)
--- NOTE | 2018-04-17 09:50 | P.PCN ---
Date of Procedure: 04/17/18 Procedure(s) Performed: Procedure: Total colonoscopy. Preoperative diagnosis: Screening for neoplasia. Postoperative diagnosis: Sigmoid diverticulosis with no evidence of acute diverticulitis, strictures, polyps or cancer. Preparation: HalfLytely prep. Sedation: Was provided by anesthesia. Brief clinical history: The patient is a 73-year-old male who is scheduled for this evaluation for screening for neoplasia. He had prior exams in the past for removal of polyps and his last exam was 6 or 7 years ago. At this time, he has no abdominal complaints, bleeding or anemia. Procedure: With the patient on his left lateral decubitus position and after informed consent and adequate sedation, the perianal area was inspected and it did not show any fissures or fistulas. There were no masses felt on digital rectal examination. The Olympus CFQ 160L video colonoscope was then inserted in the rectum in the usual fashion and advanced to the cecum. There were multiple diverticular orifices seen scattered in the sigmoid but I saw no evidence of acute diverticulitis or strictures. No polyps or tumors were seen or any obvious other pathology. I retroflexed the endoscope in the rectum before the endoscope was withdrawn. The patient tolerated the procedure well. Plan: The patient was reassured. Discussed dietary measures. Consideration can be given for repeat exam in 5 years depending on his overall health at that time. He will follow up with you as planned.
[2018-04-17 09:57] VITALS: RESP 16
[2018-04-17 10:10] VITALS: BP 116/72; PULSE 90
== END 2018-04-17 10:41 | disposition home or self-care (01) ==
LOC: ORWHC2ENDO 08:10
DX: Z12.11 Encounter for screening for malignant neoplasm of colon (principal); K57.30 Diverticulosis of large intestine without perforation or abscess without bleeding; Z86.010 Personal history of colon polyps; E11.9 Type 2 diabetes mellitus without complications; M19.90 Unspecified osteoarthritis, unspecified site; M54.9 Dorsalgia, unspecified; E78.5 Hyperlipidemia, unspecified; I48.91 Unspecified atrial fibrillation; N40.0 Benign prostatic hyperplasia without lower urinary tract symptoms; Z79.01 Long term (current) use of anticoagulants; Z79.84 Long term (current) use of oral hypoglycemic drugs; Z79.82 Long term (current) use of aspirin; Z79.891 Long term (current) use of opiate analgesic; Z79.899 Other long term (current) drug therapy
CPT/HCPCS: J2001; J2704; G0105

== ENCOUNTER → 2018-06-04 | Outpatient (CLI) | payer MEDICARE ==
--- NOTE | 2018-06-04 10:14 | CT ---
EXAMINATION TYPE: CT chest w con DATE OF EXAM: 06/04/2018 COMPARISON: 03/13/2018 HISTORY: 73-year-old male solitary pulmonary nodule, Follow up to lung nodule TECHNIQUE: Contiguous axial scanning of the chest after the administration of 100 mL of Isovue 300. Coronal/sagittal reconstructions performed. CT DLP: 599.5mGycm. Automatic exposure control utilized for a dose reduction. FINDINGS: Heart normal size with trace anterior basilar pericardial fluid. Small right-sided pericardiac cyst m easuring 2.7 cm unchanged. Coronary vessel calcifications are present and are remarkable for coronary artery disease. Ascending aorta ectatic at 3.8 cm. That have mild atherosclerotic arch calcifications with convention al arch vessel branching anatomy. Stable 9 mm pretracheal lymph node, stable to smaller 1.4 cm subcarinal lymph node and small bilatera l hilar lymph nodes measuring up to 6 mm on each side. No new thoracic lymphadenopathy. Normal variant azygos fissure. Dependent atelectasis along the posterior lungs on both sides. Previously seen right lower lobe patchy areas of groundglass have resolved in the interval. A 6 mm an terior right midlung pulmonary nodule is stable for 3 months. No consolidation or pleural effusion. Mild diffuse bronchial wall thickening is unchanged. Visualized upper abdomen shows a 3.3 cm cyst lateral left kidney, hilar splenule, a mild colonic dive rticulosis. Bones: Endplate spondylosis throughout the thoracic spine. IMPRESSION: 1. Stable 6 mm anterior right midlung pulmonary nodule for 3 months. Additional one-year follow-up re commended. 2. Interval clearance of the previous groundglass densities in the right lower lobe. 3. Some prominent but nonenlarged mediastinal lymph nodes are either stable or slightly smaller. 4. CAD.
== END | disposition home or self-care (01) ==
LOC: RADCTMAIN 08:33
PROVIDERS: ATTEND Family Medicine
DX: J98.4 Other disorders of lung (principal); R91.1 Solitary pulmonary nodule; I25.10 Atherosclerotic heart disease of native coronary artery without angina pectoris
CPT/HCPCS: 82565; 84520; 71260; 36415; Q9967

== ENCOUNTER → 2018-08-10 | Outpatient (CLI) | payer MEDICARE ==
--- NOTE | 2018-08-10 10:42 | MR ---
EXAMINATION TYPE: MR shoulder LT wo con DATE OF EXAM: 08/10/2018 COMPARISON: Ultrasound 04/03/2018 HISTORY: Left shoulder pain TECHNIQUE: Multiplanar, multisequence imaging of the left shoulder is performed without contrast. FINDINGS: Rotator Cuff: There are complete through thickness tears of the supraspinatus and infraspinatus tendo ns. Subscapularis insertion is somewhat ill-defined and may represent partial tear. Acromioclavicular Joint: There is hypertrophy and narrowing of the AC joint. There is a large mass wh ich is been previously described over lying the AC joint by ultrasound now measuring approximately 6. 2 x 4.8 cm with some internal heterogeneity. Glenohumeral Joint: Mild narrowing of the glenohumeral joint. Labrum: There is truncation of the labrum suggestive of degenerative tear. Biceps Tendon: The long head of biceps is in normal location within bicipital groove. There is nonvis ualization of the biceps tendon within the rotator interval. A tear is not excluded. Bone marrow signal: Cystic changes involving the humeral head can be associated with chronic impingem ent. Other: No additional significant abnormality is appreciated. IMPRESSION: 1. Persistent large mass overlying the AC joint likely representing a geyser sign of the shoulder. Ch ronic full-thickness complete tears of the supraspinatus and infraspinatus tendons are noted and ther e is degeneration of the AC joint. This may be resulting in synovial fluid escaping through a chronic full-thickness tear of the rotator cuff through a degenerative AC joint. Given the heterogeneity of the appearance other etiologies are not excluded consider surgical excision as clinically warranted.
== END | disposition home or self-care (01) ==
LOC: RADMRIMAIN 09:27
PROVIDERS: ATTEND Orthopaedic Surgery
DX: M75.122 Complete rotator cuff tear or rupture of left shoulder, not specified as traumatic (principal); M19.012 Primary osteoarthritis, left shoulder; M25.812 Other specified joint disorders, left shoulder

== ENCOUNTER → 2018-08-31 | Outpatient (CLI) | payer MEDICARE ==
[2018-08-31 11:52] LABS: HCT 37.9 % (39.0-53.0); HGB 13.1 gm/dL (13.0-17.5); MCH 30.9 pg (25.0-35.0); MCHC 34.5 g/dL (31.0-37.0); MCV 89.6 fL (80.0-100.0); Mean Platelet Volume 6.2; Platelet Count 303 k/uL (150-450); RBC 4.23 m/uL (4.30-5.90); RDW 14.8 % (11.5-15.5); WBC 9.5 k/uL (3.8-10.6)
[2018-08-31 12:25] LABS: Potassium 5.1 mmol/L (3.5-5.1)
== END ==
LOC: LABPAT 10:35
PROVIDERS: ATTEND Internal Medicine Cardiovascular Disease
DX: Z01.812 Encounter for preprocedural laboratory examination (principal); I48.2 Chronic atrial fibrillation
CPT/HCPCS: 80051; 82565; 84520; 85027

== ENCOUNTER → 2018-09-05 | Day surgery (SDC) | payer MEDICARE ==
[2018-08-31 08:19] VITALS: BMI 32.6
[~2018-09-05] MED LIST changes: +IV FLUID CONTINUATION 500 ML IV ONE; +SODIUM CHLORIDE 0.9% 1,000 ML IV SCH
[2018-09-05 08:10] VITALS: TEMP 97.8
[2018-09-05 08:28] LABS: INR 1.8 (<1.2); Prothrombin Time 16.1 sec (9.0-12.0)
[2018-09-05 09:22] VITALS: RESP 16
[2018-09-05 10:15] VITALS: BP 121/75; PULSE 97
== END | disposition home or self-care (01) ==
LOC: CATHCVL 07:36
PROVIDERS: ATTEND Internal Medicine Cardiovascular Disease
DX: I48.2 Chronic atrial fibrillation (principal); Z53.8 Procedure and treatment not carried out for other reasons; I10 Essential (primary) hypertension; E78.5 Hyperlipidemia, unspecified; E11.9 Type 2 diabetes mellitus without complications; Z79.82 Long term (current) use of aspirin; Z79.1 Long term (current) use of non-steroidal anti-inflammatories (NSAID); Z79.01 Long term (current) use of anticoagulants; Z79.84 Long term (current) use of oral hypoglycemic drugs; Z79.899 Other long term (current) drug therapy; Z82.49 Family history of ischemic heart disease and other diseases of the circulatory system
CPT/HCPCS: 85610

== ENCOUNTER → 2018-10-15 | Outpatient (CLI) | payer MEDICARE ==
[2018-10-15 11:44] LABS: Basophils % (A) 0 %; Eosinophils # (A) 0.3 k/uL (0-0.7); Eosinophils % (A) 4 %; HCT 39.1 % (39.0-53.0); HGB 12.6 gm/dL (13.0-17.5); Lymphocytes # (A) 1.6 k/uL (1.0-4.8); Lymphocytes % (A) 20 %; MCH 28.6 pg (25.0-35.0); MCHC 32.2 g/dL (31.0-37.0); Mean Platelet Volume 6.5; Monocytes # (A) 0.5 k/uL (0-1.0); Monocytes % (A) 6 %; Neutrophils # (A) 5.3 k/uL (1.3-7.7); Neutrophils % (A) 67 %; Platelet Count 313 k/uL (150-450); RBC 4.39 m/uL (4.30-5.90); RDW 14.6 % (11.5-15.5)
[2018-10-15 11:55] LABS: Potassium 4.7 mmol/L (3.5-5.1)
[2018-10-15 12:57] LABS: INR 2.6 (<1.2); Prothrombin Time 23.8 sec (9.0-12.0)
== END ==
LOC: LABPAT 10:37
PROVIDERS: ATTEND Internal Medicine Cardiovascular Disease
DX: Z01.812 Encounter for preprocedural laboratory examination (principal); I48.2 Chronic atrial fibrillation; Z51.81 Encounter for therapeutic drug level monitoring; Z79.01 Long term (current) use of anticoagulants
CPT/HCPCS: 36415; 80051; 82565; 84520; 85025; 85610

== ENCOUNTER 2018-10-16 06:19 | Day surgery (SDC) | payer MEDICARE ==
[2018-10-11 09:22] VITALS: BMI 34.0
[2018-10-16] MEDS ORDERED: SODIUM CHLORIDE 0.9% 1,000 ML IV SCH ×2 (06:37→08:00)
[2018-10-16 07:01] VITALS: TEMP 98
[2018-10-16] MEDS ORDERED: SODIUM CHLORIDE 0.9% 500 ML 500 ML IV ONE (07:01)
[2018-10-16 07:26] LABS: Glucose,Whole Blood 139 mg/dL (75-99)
[2018-10-16] MEDS ORDERED: LIDOCAINE 1% INJ 10MG/ML (20 ML MDV) ONE (07:40)
[2018-10-16] MEDS ORDERED: PROPOFOL 10 MG/ML 20 ML VIAL IV ONE (07:40)
[2018-10-16] MEDS ORDERED: BENZOCAINE SPRAY 1 CAN MUCOUS MEM ONE (07:45)
[2018-10-16 08:30] VITALS: RESP 16
[2018-10-16] MEDS ORDERED: SODIUM CHLORIDE 0.9% 1,000 ML IV ONE (08:34)
--- NOTE | 2018-10-16 08:46 | ECHOT ---
TRANSESOPHAGEAL ECHOCARDIOGRAM INDICATION: Chronic atrial fibrillation. PROCEDURE NOTE: After obtaining informed consent, transesophageal echocardiogram was performed in left lateral position using an Omni plane probe. Local and IV sedation were obtained by the career portals teacher, patient tolerated the procedure well without any obvious immediate complications. FINDINGS: 1. There is no intracardiac thrombus within the left atrial appendage, left atrium, right atrium, or right ventricle. 2. Left ventricle has normal size and systolic function with an ejection fraction of 55%. 3. Left atrium, right atrium, right ventricle appear mildly enlarged. 4. Mitral valve is anatomically normal. There is mild to moderate central mitral regurgitation noted. 5. Aortic valve is a 3-leaflet valve. There is trace aortic regurgitation noted. 6. Tricuspid valve shows mild to moderate tricuspid regurgitation. 7. Interatrial septum, there is no evidence of expl-of-nzkfo shunt by color-flow Doppler or [id number] shunt by agitated saline contrast study. Aorta shows mild- to-moderate atherosclerotic changes. CONCLUSION: No intracardiac thrombus. CARDIOVERSION NOTE: INDICATION: Chronic atrial fibrillation. After obtaining informed consent and confirming that the patient is adequately anticoagulated with an INR of 2.8, patient underwent a transesophageal echo that ruled out intracardiac thrombus and he was cardioverted with a single 300 joule shock. He converted to sinus rhythm and stayed in sinus rhythm. Patient will continue the Coumadin. I am going to decrease the dose of Toprol to 100 mg daily and hold the Cardizem. Continue the Multaq and he will follow up with me in the office in a week's time. MMODL / IJN: [id number] /
--- NOTE | 2018-10-16 08:52 | LTR ---
DATE OF SERVICE: 10/16/2018 RE: Aroldo Samson Dear Dr. Rick; I performed a cardioversion on Aroldo Samson. He is chronically anticoagulated with Coumadin. A JESES confirmed absence of thrombus and he underwent cardioversion successfully. I told him this will keep him in sinus rhythm. If it does not, then we will consider atrial fibrillation ablation. Thank you for allowing me to participate in the care of this pleasant gentleman. Sincerely, MD ZANDER Ramon / EDVIN: [id number] /
[2018-10-16 09:48] VITALS: BP 109/67; PULSE 88
== END 2018-10-16 09:52 | disposition home or self-care (01) ==
LOC: CATHCVL 06:19
PROVIDERS: ATTEND Internal Medicine Cardiovascular Disease
DX: I48.2 Chronic atrial fibrillation (principal); I08.3 Combined rheumatic disorders of mitral, aortic and tricuspid valves; I10 Essential (primary) hypertension; E78.49 Other hyperlipidemia; E11.9 Type 2 diabetes mellitus without complications; G47.33 Obstructive sleep apnea (adult) (pediatric); Z79.01 Long term (current) use of anticoagulants; Z79.84 Long term (current) use of oral hypoglycemic drugs; Z79.82 Long term (current) use of aspirin; Z79.899 Other long term (current) drug therapy
CPT/HCPCS: 93312; 93320; 93325; 92960; J2001; J2704

== ENCOUNTER 2019-01-16 10:41 | Emergency (ER) | payer MEDICARE ==
[2019-01-16] MEDS ORDERED: SODIUM CHLORIDE 0.9% 1,000 ML IV STA (11:58)
[2019-01-16] MEDS ORDERED: MECLIZINE 12.5 MG TAB PO STA (11:58)
[2019-01-16 12:24] LABS: Basophils % (A) 0 %; Eosinophils # (A) 0.3 k/uL (0-0.7); Eosinophils % (A) 4 %; HCT 39.2 % (39.0-53.0); HGB 13.1 gm/dL (13.0-17.5); Lymphocytes # (A) 1.4 k/uL (1.0-4.8); Lymphocytes % (A) 17 %; MCH 29.6 pg (25.0-35.0); MCHC 33.4 g/dL (31.0-37.0); MCV 88.6 fL (80.0-100.0); Mean Platelet Volume 6.8; Monocytes # (A) 0.6 k/uL (0-1.0); Monocytes % (A) 7 %; Neutrophils # (A) 5.9 k/uL (1.3-7.7); Neutrophils % (A) 70 %; Platelet Count 346 k/uL (150-450); RBC 4.42 m/uL (4.30-5.90); RDW 15.3 % (11.5-15.5); WBC 8.5 k/uL (3.8-10.6)
[2019-01-16 12:27] LABS: Appearance,Urine Clear (Clear); Bilirubin,Urine Negative (Negative); Blood,Urine Negative (Negative); Color,Urine Yellow; Glucose,Urine (UA) Negative (Negative); Ketones,Urine Negative (Negative); Leukocyte Esterase,Urine Negative (Negative); Nitrite,Urine Negative (Negative); PH, Urine 5.5 (5.0-8.0); Protein,Urine Negative (Negative); Specific Gravity,Urine 1.018 (1.001-1.035); Urobilinogen,Urine <2.0 mg/dL (<2.0)
--- NOTE | 2019-01-16 12:27 | ED ---
Dizziness HPI - General Source: patient, RN notes reviewed, old records reviewed Mode of arrival: wheelchair Limitations: no limitations <Reyna Nj - Last Filed: 01/16/19 13:07> <Pal Gonzalez - Last Filed: 01/16/19 13:25> - General Chief Complaint: Dizziness Stated Complaint: FALL, HEAD INJURY, VERTIGO Time Seen by Provider: 01/16/19 11:33 - History of Present Illness Initial Comments: Patient is a 73-year-old male who presents emergency Department today complaints of dizziness for the past week. He went to see his primary care provider and reports she's had history of significant vertigo in the past. He' s been on medications for vertigo. Patient states that he's been having some dizzy spells where he fell and hit the back of his head. He is currently on Coumadin. His last fall was yesterday and complains of an abrasion over the back of his scalp. He states he was out of fall and head injury on Monday. In the same he denies any headache pains, chest pain shortness of breath, nausea or vomiting. Patient has history of atrial fibrillation, CVA, diabetes, hyperlipidemia and hypertension prostate disorder and skin disorder. (Reyna Nj) - Related Data Home Medications Medication Instructions Recorded Confirmed Alfuzosin HCl [Alfuzosin HCl ER] 10 mg PO HS 01/24/17 01/16/19 Aspirin EC [Ecotrin Low Dose] 81 mg PO DAILY 01/24/17 01/16/19 Atorvastatin Calcium [Lipitor] 10 mg PO HS 01/24/17 01/16/19 Gabapentin [Neurontin] 100 mg PO TID 01/24/17 01/16/19 Latanoprost Ophth [Xalatan 0.005%] 1 drops BOTH EYES HS 01/24/17 01/16/19 Dronedarone [Multaq] 400 mg PO BID 08/31/18 01/16/19 metFORMIN HCL [Glucophage] 500 mg PO BID 08/31/18 01/16/19 Metoprolol Tartrate [Lopressor] 100 mg PO DAILY 01/16/19 01/16/19 Warfarin [Coumadin] 2.5 mg PO FR 01/16/19 01/16/19 Warfarin [Coumadin] 5 mg PO SUMOTUWETHSA 01/16/19 01/16/19 amLODIPine [Norvasc] 5 mg PO DAILY 01/16/19 01/16/19 Previous Rx's Medication Instructions Recorded Hydrocodone/Acetaminophen [[place] 1 each PO Q6HR PRN #20 tab 01/24/17 5-325] Allergies Allergy/AdvReac Type Severity Reaction Status Date / Time No Known Allergies Allergy Verified 10/11/18 09:11 Review of Systems ROS Other: All systems not noted in ROS Statement are negative. <Reyna Nj - Last Filed: 01/16/19 13:07> ROS Other: All systems not noted in ROS Statement are negative. <Pal Gonzalez - Last Filed: 01/16/19 13:25> ROS Statement: Those systems with pertinent positive or pertinent negative responses have been documented in the HPI. Past Medical History Past Medical History: Atrial Fibrillation, CVA/TIA, Diabetes Mellitus, Hyperlipidemia, Hypertension, Osteoarthritis (OA), Prostate Disorder, Skin Disorder, Sleep Apnea/CPAP/BIPAP Additional Past Medical History / Comment(s): CHILDHOOD POLIO, TIA -no residual effects, psoriasis, has cpap machine History of Any Multi-Drug Resistant Organisms: None Reported Past Surgical History: Cardiac Ablation, Heart Catheterization, Tonsillectomy Additional Past Surgical History / Comment(s): HX OF EPIDURALS FOR PAIN, MARYA CATARACTS, cardioversion x2 Past Anesthesia/Blood Transfusion Reactions: No Reported Reaction Past Psychological History: No Psychological Hx Reported Smoking Status: Never smoker Past Alcohol Use History: None Reported Past Drug Use History: None Reported - Past Family History Father Family Medical History: Cancer <Reyna Nj - Last Filed: 01/16/19 13:07> General Exam Limitations: no limitations General appearance: alert, in no apparent distress Head exam: Present: atraumatic, normocephalic, normal inspection, other ( Patient is a 4 cm laceration that is well approximated and bleeding is controlled over the right occipital scalp.) Eye exam: Present: normal appearance, PERRL, EOMI. Absent: scleral icterus, conjunctival injection, periorbital swelling ENT exam: Present: normal exam, mucous membranes moist Neck exam: Present: normal inspection. Absent: tenderness, meningismus, lymphadenopathy Respiratory exam: Present: normal lung sounds bilaterally. Absent: respiratory distress, wheezes, rales, rhonchi, stridor Cardiovascular Exam: Present: regular rate, normal rhythm, normal heart sounds. Absent: systolic murmur, diastolic murmur, rubs, gallop, clicks GI/Abdominal exam: Present: soft, normal bowel sounds. Absent: distended, tenderness, guarding, rebound, rigid Extremities exam: Present: normal inspection, full ROM, normal capillary refill. Absent: tenderness, pedal edema, joint swelling, calf tenderness Back exam: Present: normal inspection Neurological exam: Present: alert, oriented X3, CN II-XII intact Expanded Patient oriented to: Present: person, place, time Speech: Present: fluid speech Cranial nerves: EOM's Intact: Normal, Gag Reflex: Normal, Tongue Deviation: Normal, Nystagmus: Normal, Facial Sensation: Normal, Facial Palsy with Forehead Movement: Normal, Facial Palsy without Forehead Movement: Normal Cerebellar function: Finger to Nose: Normal Upper motor neuron: Pronator Drift: Normal Sensory exam: Upper Extremity Light Touch: Normal, Lower Extremity Light Touch: Normal Motor strength exam: RUE: 5, LUE: 5, RLE: 5, LLE: 5 Eye Response: (4) open spontaneously Motor Response: (6) obeys commands Verbal Response: (5) oriented [place] Total: 15 Psychiatric exam: Present: normal affect, normal mood Skin exam: Present: warm, dry, intact, normal color. Absent: rash <Reyna Nj - Last Filed: 01/16/19 13:07> <Pal Gonzalez - Last Filed: 01/16/19 13:25> - General Exam Comments Initial Comments: 73-year-old male. Alert and oriented. No significant distress. (Reyna Nj) Course <Renya Nj - Last Filed: 01/16/19 13:07> <Pal Gonzalez - Last Filed: 01/16/19 13:25> Vital Signs 01/16/19 01/16/19 01/16/19 10:49 11:14 11:20 Temperature 98.4 F Pulse Rate 70 68 Respiratory 18 17 27 H Rate Blood Pressure 120/69 133/77 O2 Sat by Pulse 98 97 Oximetry 01/16/19 01/16/19 01/16/19 11:30 11:40 11:50 Temperature Pulse Rate 68 68 68 Respiratory 16 19 13 Rate Blood Pressure 133/77 141/88 141/88 O2 Sat by Pulse 94 L 95 95 Oximetry 01/16/19 01/16/19 01/16/19 12:00 12:10 12:20 Temperature Pulse Rate 70 70 72 Respiratory 19 16 18 Rate Blood Pressure 141/88 143/80 143/80 O2 Sat by Pulse 94 L 95 97 Oximetry 01/16/19 01/16/19 01/16/19 12:30 12:40 12:50 Temperature Pulse Rate 70 78 Respiratory 16 28 H Rate Blood Pressure 143/80 143/80 143/80 O2 Sat by Pulse 96 94 L Oximetry 01/16/19 01/16/19 01/16/19 13:00 13:10 13:20 Temperature Pulse Rate 74 82 73 Respiratory 16 12 18 Rate Blood Pressure 143/80 144/97 144/97 O2 Sat by Pulse 94 L 94 L 93 L Oximetry - Reevaluation(s) Reevaluation #1: 01/16/19 13:[address] rankin in for Jerry Sexton who agrees to accept transfer ( Reyna Nj) Reevaluation #2: 01/16/19 13:24 [place] she is a [id number] evaluation the patient he is on Coumadin for atrial fibrillation he is in sinus rhythm at this time. He'll fall and does demonstrate evidence of an interval hemorrhage with some oskar-hemorrhage edema. Slight evidence of mass effect. Please see the complete report. Patient in are present with a discussion. They are agreeable was transferred to [facility]. (Pal Gonzalez) Medical Decision Making - Lab Data Result diagrams: 01/16/19 11:31 01/16/19 11:31 - Radiology Data Radiology results: report reviewed <Reyna Nj - Last Filed: 01/16/19 13:07> - Lab Data Result diagrams: 01/16/19 11:31 01/16/19 11:31 <Pal Gonzalez - Last Filed: 01/16/19 13:25> - Medical Decision Making 73-year-old male presents department today with complaints of dizziness and frequent falls. He is on Coumadin for A. fib. Patient's has no neurological deficits. Complains of no headache or pain. He's had 3 falls within the past weekend due to the vertigo and dizziness. CT of the brain and C-spine is completed today. There is an evidence of a left frontal acute intracranial hemorrhage measuring 1.4 x 1.5 cm with vasogenic edema. There is no evidence of midline shift. Patient's vital signs are stable. EKG is unremarkable. Lab work was unremarkable. INR is 2.6. I did give the Patient 1 dose of oral vitamin K. Patient is informed of the brain bleed and agrees to transfer to [facility]. I discussed case with Dr. Monge.whom accepts transfer. ( Reyna Nj) - Lab Data Lab Results 01/16/19 01/16/19 01/16/19 Range/Units 11:31 11:31 11:31 WBC 8.5 (3.8-10.6) k/uL RBC 4.42 (4.30-5.90) m/uL Hgb 13.1 (13.0-17.5) gm/dL Hct 39.2 (39.0-53.0) % MCV 88.6 (80.0-100.0) fL MCH 29.6 (25.0-35.0) pg MCHC 33.4 (31.0-37.0) g/dL RDW 15.3 (11.5-15.5) % Plt Count 346 (150-450) k/uL Neutrophils % 70 % Lymphocytes % 17 % Monocytes % 7 % Eosinophils % 4 % Basophils % 0 % Neutrophils # 5.9 (1.3-7.7) k/uL Lymphocytes # 1.4 (1.0-4.8) k/uL Monocytes # 0.6 (0-1.0) k/uL Eosinophils # 0.3 (0-0.7) k/uL Basophils # 0.0 (0-0.2) k/uL PT 25.0 H (9.0-12.0) sec INR 2.6 H (<1.2) APTT 39.0 H (22.0-30.0) sec Sodium 140 (137-145) mmol/L Potassium 4.6 (3.5-5.1) mmol/L Chloride 105 (98-107) mmol/L Carbon Dioxide 25 (22-30) mmol/L Anion Gap 10 mmol/L BUN 15 (9-20) mg/dL Creatinine 0.90 (0.66-1.25) mg/dL Est GFR (CKD-EPI)AfAm >90 (>60 ml/min/1.73 sqM) Est GFR (CKD-EPI)NonAf 85 (>60 ml/min/1.73 sqM) Glucose 116 H (74-99) mg/dL Calcium 9.7 (8.4-10.2) mg/dL Total Bilirubin 0.6 (0.2-1.3) mg/dL AST 30 (17-59) U/L ALT 42 (21-72) U/L Alkaline Phosphatase 95 (38-126) U/L Troponin I (0.000-0.034) ng/mL Total Protein 7.3 (6.3-8.2) g/dL Albumin 4.2 (3.5-5.0) g/dL Urine Color Urine Appearance (Clear) Urine pH (5.0-8.0) Ur Specific [place] (1.001-1.035) Urine Protein (Negative) Urine Glucose (UA) (Negative) Urine Ketones (Negative) Urine Blood (Negative) Urine Nitrite (Negative) Urine Bilirubin (Negative) Urine Urobilinogen (<2.0) mg/dL Ur Leukocyte Esterase (Negative) 01/16/19 01/16/19 Range/Units 11:31 12:16 WBC (3.8-10.6) k/uL RBC (4.30-5.90) m/uL Hgb (13.0-17.5) gm/dL Hct (39.0-53.0) % MCV (80.0-100.0) fL MCH (25.0-35.0) pg MCHC (31.0-37.0) g/dL RDW (11.5-15.5) % Plt Count (150-450) k/uL Neutrophils % % Lymphocytes % % Monocytes % % Eosinophils % % Basophils % % Neutrophils # (1.3-7.7) k/uL Lymphocytes # (1.0-4.8) k/uL Monocytes # (0-1.0) k/uL Eosinophils # (0-0.7) k/uL Basophils # (0-0.2) k/uL PT (9.0-12.0) sec INR (<1.2) APTT (22.0-30.0) sec Sodium (137-145) mmol/L Potassium (3.5-5.1) mmol/L Chloride (98-107) mmol/L Carbon Dioxide (22-30) mmol/L Anion Gap mmol/L BUN (9-20) mg/dL Creatinine (0.66-1.25) mg/dL Est GFR (CKD-EPI)AfAm (>60 ml/min/1.73 sqM) Est GFR (CKD-EPI)NonAf (>60 ml/min/1.73 sqM) Glucose (74-99) mg/dL Calcium (8.4-10.2) mg/dL Total Bilirubin (0.2-1.3) mg/dL AST (17-59) U/L ALT (21-72) U/L Alkaline Phosphatase (38-126) U/L Troponin I <0.012 (0.000-0.034) ng/mL Total Protein (6.3-8.2) g/dL Albumin (3.5-5.0) g/dL Urine Color Yellow Urine Appearance Clear (Clear) Urine pH 5.5 (5.0-8.0) Ur Specific [place] 1.018 (1.001-1.035) Urine Protein Negative (Negative) Urine Glucose (UA) Negative (Negative) Urine Ketones Negative (Negative) Urine Blood Negative (Negative) Urine Nitrite Negative (Negative) Urine Bilirubin Negative (Negative) Urine Urobilinogen <2.0 (<2.0) mg/dL Ur Leukocyte Esterase Negative (Negative) 01/16/19 12:55 EKG performed at 11:15 shows normal sinus rhythm normal EKG. Ventricular rate of 69 bpm. Intervals 180 ms. She advent 86 ms. QT QTC 392/[address] elevation or T-wave inversion. No other atrial ventricular arrhythmias. (Reyna Nj) - Radiology Data Left front acute intracranial hemorrhage measuring 1.4 x 1.5 cm with surrounding vasogenic edema and no midline shift. Considerations are for that it was like hypertensive hemorrhage, posterior medical hemorrhage or hemorrhagic mass less likely given solitary lesion. Short-term follow-up to ensure decreasing size. There is a punctate pontine calcifications questionably seen and examined 2010. These could represent calcifications of developmental venous anomaly. Arterial malformation, prior trauma or metabolic disorder. Punctate benign right basal ganglia desiccation also noted. There is no acute fracture or dislocation evident the cervical spine. Extensive multilevel degenerative disc disease of cervical spine. (Reyna Nj) Disposition Is patient prescribed a controlled substance at d/c from ED?: No Time of Disposition: 13:13 - Out of Hospital Transfer - Req. Specs Out of Hospital Transfer - Requested Specifics: Other Emergency Center ([facility]) <Reyna Nj - Last Filed: 01/16/19 13:07> <Pal Gonzalez - Last Filed: 01/16/19 13:25> Clinical Impression: Intracranial hemorrhage, Bleeding on Coumadin, Dizziness, Vertigo Disposition: DC/TRNS INTERMEDIATE CARE FAC Condition: Stable Referrals: Misael Oro DO [Primary Care Provider] - 1-2 days
[2019-01-16 12:32] LABS: ALT 42 U/L (21-72); AST 30 U/L (17-59); Albumin 4.2 g/dL (3.5-5.0); Alkaline Phosphatase 95 U/L (38-126); Anion Gap 10 mmol/L; Blood Urea Nitrogen 15 mg/dL (9-20); Calcium 9.7 mg/dL (8.4-10.2); Carbon Dioxide 25 mmol/L (22-30); Chloride 105 mmol/L (98-107); Glucose 116 mg/dL (74-99); Potassium 4.6 mmol/L (3.5-5.1); Sodium 140 mmol/L (137-145); Total Bilirubin 0.6 mg/dL (0.2-1.3); Total Protein 7.3 g/dL (6.3-8.2)
[2019-01-16 12:33] LABS: INR 2.6 (<1.2)
--- NOTE | 2019-01-16 12:53 | CT ---
EXAMINATION TYPE: CT brain cspine wo con DATE OF EXAM: 01/16/2019 COMPARISON: CT brain dated 09/12/2011 HISTORY: Multiple falls in the past week. Dizziness and weakness. Head and neck pain. CT DLP: 1708.3 mGycm. Automated Exposure Control for Dose Reduction was Utilized. TECHNIQUE: CT scan of the head and cervical spine are performed without contrast. FINDINGS: The questionable hyperdensity within the sherley on the exam of 2010 may have represented deve loping calcifications as 2 punctate calcifications are now seen within the sherley. No surrounding vasog enic edema is noted. Punctate calcification is also seen within the right basal ganglia. Within the left frontal lobe there is a focus of hyperdensity representing acute hemorrhage measuring 1.4 x 1.5 cm on image 44. There is mild surrounding vasogenic edema without midline shift. No other foci of intracranial hemorrhage are seen. Scattered patchy areas of hypoattenuation are noted within the periventricular and subcortical white matter, most commonly on the basis of chronic microangiopat hy. No suspicious extra-axial fluid collection. The ventricles and sulci are symmetrically prominent compatible with age-related volume loss. The globes are intact and the visualized sinuses are clear . Cervical spine is visualized in its entirety from C1 through upper thoracic levels and demonstrates s atisfactory alignment without evidence of acute fracture or dislocation. Prevertebral soft tissue ap pears within normal limits. The C1-C2 articulation is unremarkable. Extensive multilevel degenerati ve disc disease is seen of the cervical spine uncovertebral hypertrophy, facet arthropathy, posterior disc osteophyte complex throughout the cervical spine, intervertebral disc space narrowing and anter ior osteophytes. These result in mild spinal canal stenosis at C3-C4 and C4-C5 and moderate spinal ca nal stenosis at C5-C6 and C6-C7. Incidental note of atherosclerosis within the carotid arteries. Azygous lobe and fissure are also inc identally seen. IMPRESSION: 1. Left frontal acute intracranial hemorrhage measuring 1.4 x 1.5 cm with surrounding vasogenic edema and no midline shift. Considerations are for hypertension hemorrhage, post traumatic hemorrhage or h emorrhagic mass, less likely given the solitary lesion. Short-term follow-up could ensure decreasing size. Findings were discussed with Dr. Gonzalez by Dr. Padilla on 01/16/2019 at 1251. 2. Punctate pontine calcifications question was seen on the exam of 2010. These could represent calci fications of a developmental venous anomaly, arterial venous malformation, prior trauma, or metabolic disorder. Punctate benign right basal ganglia desiccation is also noted. 3. No acute fracture or dislocation evident in the cervical spine. Extensive multilevel degenerative disc disease of the cervical spine.
--- NOTE | 2019-01-16 13:11 | XR ---
EXAMINATION TYPE: XR chest 2V DATE OF EXAM: 01/16/2019 COMPARISON: 09/12/2011 INDICATION: Fall dizziness TECHNIQUE: Frontal and lateral views of the chest are obtained. FINDINGS: The heart size is mildly prominent. The pulmonary vasculature is normal. The lungs are clear. Azygos fissure is present on the right. Some atelectasis of the azygos lobe may be present IMPRESSION: 1. Mild cardiomegaly.
[2019-01-16] MEDS: PHYTONADIONE ORAL 5 MG/5 ML ORAL.SYRG PO STA ×2 (13:38→13:50)
[2019-01-16 14:23] VITALS: BP 126/83; PULSE 84; RESP 18; TEMP 98.1
== END 2019-01-16 14:36 ==
LOC: EC 10:41
DX: S06.300A Unspecified focal traumatic brain injury without loss of consciousness, initial encounter (principal); I48.91 Unspecified atrial fibrillation; E11.9 Type 2 diabetes mellitus without complications; E78.5 Hyperlipidemia, unspecified; I10 Essential (primary) hypertension; G47.30 Sleep apnea, unspecified; Z79.01 Long term (current) use of anticoagulants; Z79.82 Long term (current) use of aspirin; Z79.84 Long term (current) use of oral hypoglycemic drugs; Z79.899 Other long term (current) drug therapy; Z86.73 Personal history of transient ischemic attack (TIA), and cerebral infarction without residual deficits; Z95.5 Presence of coronary angioplasty implant and graft; Z99.89 Dependence on other enabling machines and devices; W18.09XA Striking against other object with subsequent fall, initial encounter
CPT/HCPCS: 36415; 70450; 71046; 72125; 80053; 81003; 84484; 85025; 85610; 85730; 93005; 96360; 96361; 99285

== ENCOUNTER → 2019-03-13 | Outpatient (CLI) | payer MEDICARE ==
--- NOTE | 2019-03-13 13:37 | US ---
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 Pt states urinary frequency EXAM MEASUREMENTS: Post Void Residual Volume: 32.2 mL Color Doppler performed to assess ureteral jets. Bilateral Jets seen: Yes Normal Post Void Residual (less than 50ml): Yes IMPRESSION: 1. Urinary bladder appears unremarkable.
== END ==
LOC: RADUSWWP 12:54
PROVIDERS: ATTEND Family Medicine
DX: D29.1 Benign neoplasm of prostate (principal)
CPT/HCPCS: 76857

== ENCOUNTER → 2019-03-14 | Outpatient (CLI) | payer MEDICARE ==
--- NOTE | 2019-03-14 15:00 | MR ---
EXAMINATION TYPE: MR brain wo/w con DATE OF EXAM: 03/14/2019 2:35 PM COMPARISON: CT brain 01/16/2019 HISTORY: Patient fell and hit his head. History of intracranial hemorrhage. CONTRAST: Patient received 10 mL intravenous Gadavist gadolinium contrast. Multiplanar and multispin-echo imaging of the brain was performed . Pre and post contrast enhanced i mages are obtained. The ventricles, basal cisterns and sulci overlying the cerebral convexities are moderately enlarged. There is evidence of moderate periventricular white matter ischemic demyelination. Remote deep white matter insults are also noted. No acute edema is seen on diffusion weighted imaging. There is no evidence for midline shift or mass effect. At the site of prior hemorrhages corresponding to the left frontal parasagittal region there is evide nce of hemosiderin deposition measuring approximately 1.6 cm. No evidence for acute intracranial hemo rrhage or extra-axial collection at this time. No enhancing lesions are seen. The paranasal sinuses and mastoid air cells are well-aerated. IMPRESSION: Age-related atrophic and chronic small vessel ischemic change. No acute intracranial process at this time. Hemosiderin deposition at the site of prior intraparenchymal hemorrhage. No enhancing lesions are seen.
== END | disposition home or self-care (01) ==
LOC: RADMRIMAIN 13:24
PROVIDERS: ATTEND Family Medicine
DX: I67.82 Cerebral ischemia (principal); G31.9 Degenerative disease of nervous system, unspecified
CPT/HCPCS: 70553; A9585

== ENCOUNTER → 2019-06-18 | Outpatient (CLI) | payer MEDICARE ==
--- NOTE | 2019-06-18 09:57 | CT ---
EXAMINATION TYPE: CT chest w con DATE OF EXAM: 06/18/2019 COMPARISON: 03/13/2018 and 06/04/2018 HISTORY: Pulmonary nodule CT DLP: 591.4 mGycm. Automated Exposure Control for Dose Reduction was Utilized. TECHNIQUE: CT scan of the thorax is performed following with IV Contrast, patient injected with 100 mL of Isovue 300. FINDINGS: LUNGS: There is redemonstration of a solid right upper lobe anterior pulmonary nodule measuring 6 mm on series 4 image 28. This is unchanged from the prior exams of 06/14/2018 and 03/13/2018. Incidental n ote of an azygous lobe and fissure are again made. Minimal bibasilar subsegmental atelectasis. No rec urrent groundglass opacities. No new suspicious pulmonary nodule nor mass. There is no pleural effusi on or pneumothorax seen. The tracheobronchial tree is patent. MEDIASTINUM: Abnormal-appearing subcarinal approximately 1.5 cm short axis lymph node and prominent p retracheal lymph node measuring 9 mm in short axis. No pericardial effusion is seen. Severe coronary artery calcifications are present. Small pericardial cysts are unchanged. OTHER: Hepatic steatosis is partially visualized. Left renal cyst and splenule are again noted. Degen erative changes of the spine and levoscoliosis are also again seen. No new compression deformity. No new suspicious osseous lesion. IMPRESSION: 1. Continued stability of a 6 mm solid pulmonary nodule in the right anterior upper lobe dating back to 03/13/2018. Additional follow-up in one year is recommended to ensure long-term stability. If this is stable at that time the nodule can then be considered benign. 2. Similar prominent mediastinal lymph nodes in comparison to both prior exams. 3. Severe coronary artery calcifications, a marker of coronary artery these.
== END | disposition home or self-care (01) ==
LOC: RADCTMAIN 08:27
PROVIDERS: ATTEND Family Medicine
DX: I25.10 Atherosclerotic heart disease of native coronary artery without angina pectoris (principal); R91.1 Solitary pulmonary nodule
CPT/HCPCS: 82565; 84520; 71260; 36415; Q9967

== ENCOUNTER 2020-01-13 12:37 | Emergency (ER) | payer MEDICARE ==
[2020-01-13 12:44] VITALS: TEMP 98.2
[2020-01-13] MEDS ORDERED: SODIUM CHLORIDE 0.9% 1,000 ML IV STA (12:57)
[2020-01-13] MEDS ORDERED: IOPAMIDOL CONTRAST (ORAL USE) VIAL PO PRN (12:57)
[2020-01-13] MEDS ORDERED: FAMOTIDINE 20 MG/2 ML VIAL IV STA (12:59)
[2020-01-13 13:22] LABS: Basophils # (A) 0.1 k/uL (0-0.2); Basophils % (A) 1 %; Eosinophils # (A) 0.4 k/uL (0-0.7); Eosinophils % (A) 5 %; HCT 39.2 % (39.0-53.0); HGB 12.9 gm/dL (13.0-17.5); Lymphocytes # (A) 1.2 k/uL (1.0-4.8); Lymphocytes % (A) 15 %; MCH 28.6 pg (25.0-35.0); MCHC 32.8 g/dL (31.0-37.0); MCV 87.1 fL (80.0-100.0); Monocytes # (A) 0.5 k/uL (0-1.0); Monocytes % (A) 6 %; Neutrophils # (A) 5.8 k/uL (1.3-7.7); Neutrophils % (A) 72 %; Platelet Count 283 k/uL (150-450); WBC 8.1 k/uL (3.8-10.6)
[2020-01-13 13:35] LABS: Appearance,Urine Clear (Clear); Bilirubin,Urine Negative (Negative); Color,Urine Yellow; Glucose,Urine (UA) Negative (Negative); Ketones,Urine Negative (Negative); Protein,Urine Negative (Negative)
[2020-01-13 13:36] LABS: Blood,Urine Negative (Negative); Leukocyte Esterase,Urine Negative (Negative); Nitrite,Urine Negative (Negative); Urobilinogen,Urine <2.0 mg/dL (<2.0)
[2020-01-13 13:39] LABS: ALT 41 U/L (4-49); AST 53 U/L (17-59); African American GFR (CKD) >90 (>60 ml/min/1.73 sqM); Albumin 4.6 g/dL (3.5-5.0); Alkaline Phosphatase 82 U/L (38-126); Amylase 74 U/L (30-110); Anion Gap 14 mmol/L; Blood Urea Nitrogen 14 mg/dL (9-20); Calcium 9.6 mg/dL (8.4-10.2); Carbon Dioxide 22 mmol/L (22-30); Chloride 104 mmol/L (98-107); Glucose 148 mg/dL (74-99); Non-African American GFR(CKD) 81 (>60 ml/min/1.73 sqM); Potassium 4.8 mmol/L (3.5-5.1); Sodium 140 mmol/L (137-145); Total Bilirubin 0.6 mg/dL (0.2-1.3); Total Protein 7.8 g/dL (6.3-8.2)
--- NOTE | 2020-01-13 14:29 | CT ---
EXAMINATION TYPE: CT abdomen pelvis w con DATE OF EXAM: 01/13/2020 COMPARISON: December 2016 HISTORY: LUQ pain CT DLP: 1753.2 mGycm CONTRAST: CT scan of the abdomen and pelvis is performed with Oral Contrast and with IV Contrast, patient injec loren with 100 mL of Isovue 300. FINDINGS: LUNG BASES-: No visible nodule. No infiltrate. LIVER/GB: No calcified gallstones. No space occupying hepatic lesion. Biliary tree is of normal ca liber. PANCREAS: No inflammation. No distinct mass. SPLEEN: There is evidence of splenomegaly measuring 15 cm craniocaudal dimension. No lesion seen. ADRENALS: No nodule. No thickening. KIDNEYS/BLADDER: No hydronephrosis. No nephrolithiasis. Simple cyst left kidney is unchanged from p rior study. Urinary bladder grossly unremarkable. BOWEL: Normal appendix. Normal bowel caliber. No inflammation. GENITAL ORGANS: No gross abnormality. LYMPH NODES: No greater than 1cm abdominal or pelvic lymph nodes are appreciated. AORTA: No significant abnormality. OSSEOUS STRUCTURES: No significant abnormality is seen. OTHER: No significant additional abnormality is seen. IMPRESSION: 1. Left upper quadrant pain may be related to splenomegaly of 15 cm craniocaudal dimension versus rupinder or measurement of 12.6 cm. No acute inflammatory process is identified.
[2020-01-13] MEDS ORDERED: SODIUM CHLORIDE 0.9% 1,000 ML IV ONE (14:54)
[2020-01-13] MEDS ORDERED: DICYCLOMINE 20 MG TAB PO STA (14:55)
[2020-01-13] MEDS ORDERED: ONDANSETRON 4 MG/2 ML VIAL IVP STA (15:02)
[2020-01-13] MEDS ORDERED: MORPHINE SULFATE 4 MG/ML SYRINGE IVP STA (15:02)
[2020-01-13 15:46] VITALS: BP 144/78; PULSE 97; RESP 17
--- NOTE | 2020-01-13 16:11 | ED ---
Abdominal Pain HPI - General Source: patient, RN notes reviewed Mode of arrival: ambulatory Limitations: no limitations <Reddy Castillo - Last Filed: 01/13/20 16:16> <Pal Gonzalez - Last Filed: 01/13/20 16:20> - General Chief Complaint: Abdominal Pain Stated Complaint: abd pain Time Seen by Provider: 01/13/20 12:45 - History of Present Illness Initial Comments: 74-year-old male presents emergency department to complaint of left upper quadrant abdominal pain. Patient states pain started when he woke up with se zaid stabbing type pain. It is worse when he takes deep breath or presses on his abdomen. Patient denies any nausea vomiting diarrhea constipation or dysuria no hematuria no prior abdominal surgeries. Patient states that he has not been fatigue no fevers or chills chest pain or shortness breath. Patient denies any trauma no reflux issues (Reddy Castillo) - Related Data Home Medications Medication Instructions Recorded Confirmed Alfuzosin HCl [Alfuzosin HCl ER] 10 mg PO HS 01/24/17 01/16/19 Aspirin EC [Ecotrin Low Dose] 81 mg PO DAILY 01/24/17 01/16/19 Atorvastatin Calcium [Lipitor] 10 mg PO HS 01/24/17 01/16/19 Gabapentin [Neurontin] 100 mg PO TID 01/24/17 01/16/19 Latanoprost Ophth [Xalatan 0.005%] 1 drops BOTH EYES HS 01/24/17 01/16/19 Dronedarone [Multaq] 400 mg PO BID 08/31/18 01/16/19 metFORMIN HCL [Glucophage] 500 mg PO BID 08/31/18 01/16/19 Metoprolol Tartrate [Lopressor] 100 mg PO DAILY 01/16/19 01/16/19 Warfarin [Coumadin] 2.5 mg PO FR 01/16/19 01/16/19 Warfarin [Coumadin] 5 mg PO SUMOTUWETHSA 01/16/19 01/16/19 amLODIPine [Norvasc] 5 mg PO DAILY 01/16/19 01/16/19 Previous Rx's Medication Instructions Recorded Hydrocodone/Acetaminophen [[place] 1 each PO Q6HR PRN #20 tab 01/24/17 5-325] Dicyclomine [Bentyl] 20 mg PO TID #30 tablet 01/13/20 Omeprazole [PriLOSEC] 20 mg PO AC-BRKFST #14 cap 01/13/20 Allergies Allergy/AdvReac Type Severity Reaction Status Date / Time No Known Allergies Allergy Verified 01/13/20 12:42 Review of Systems ROS Other: All systems not noted in ROS Statement are negative. <JonathanReddy Archie - Last Filed: 01/13/20 16:16> ROS Other: All systems not noted in ROS Statement are negative. <Pal Gonzalez - Last Filed: 01/13/20 16:20> ROS Statement: Those systems with pertinent positive or pertinent negative responses have been documented in the HPI. Past Medical History Past Medical History: Atrial Fibrillation, CVA/TIA, Diabetes Mellitus, Hyperlipidemia, Hypertension, Osteoarthritis (OA), Prostate Disorder, Skin Disorder, Sleep Apnea/CPAP/BIPAP Additional Past Medical History / Comment(s): CHILDHOOD POLIO, TIA -no residual effects, psoriasis, has cpap machine History of Any Multi-Drug Resistant Organisms: None Reported Past Surgical History: Cardiac Ablation, Heart Catheterization, Tonsillectomy Additional Past Surgical History / Comment(s): HX OF EPIDURALS FOR PAIN, MARYA CATARACTS, cardioversion x2 Past Anesthesia/Blood Transfusion Reactions: No Reported Reaction Past Psychological History: No Psychological Hx Reported Smoking Status: Never smoker Past Alcohol Use History: None Reported Past Drug Use History: None Reported - Past Family History Father Family Medical History: Cancer <JonathanReddy Almanza - Last Filed: 01/13/20 16:16> General Exam Limitations: no limitations General appearance: alert, in no apparent distress Head exam: Present: atraumatic, normocephalic, normal inspection Eye exam: Present: normal appearance, PERRL, EOMI. Absent: scleral icterus, conjunctival injection, periorbital swelling ENT exam: Present: normal exam, normal oropharynx, mucous membranes moist Neck exam: Present: normal inspection, full ROM. Absent: tenderness, meningismus, lymphadenopathy Respiratory exam: Present: normal lung sounds bilaterally. Absent: respiratory distress, wheezes, rales, rhonchi, stridor, chest wall tenderness Cardiovascular Exam: Present: regular rate, normal rhythm, normal heart sounds. Absent: systolic murmur, diastolic murmur, rubs, gallop, clicks GI/Abdominal exam: Present: soft, tenderness (Moderate tenderness left upper quadrant), normal bowel sounds. Absent: distended, guarding, rebound, rigid Back exam: Present: CVA tenderness (R), CVA tenderness (L) Neurological exam: Present: alert Skin exam: Present: warm, dry, intact, normal color. Absent: rash <Reddy Castillo - Last Filed: 01/13/20 16:16> Course <Pal Gonzalez - Last Filed: 01/13/20 16:20> Vital Signs 01/13/20 01/13/20 12:40 15:45 Temperature 98.2 F Pulse Rate 77 97 Respiratory 16 17 Rate Blood Pressure 150/73 144/78 O2 Sat by Pulse 95 96 Oximetry - Reevaluation(s) Reevaluation #1: 01/13/20 16:20 PA supervision: I personally a [id number] evaluation the patient he presents with complaints of left upper quadrant abdominal pain was started and the night earlier today. He is feeling better at this time his workup and lab work is negative with the exception of evidence of splenomegaly. He is not familiar with having this in the past on my examination no tenderness palpation at this time. He will be discharged with follow-up with his doctor. He is in agreement with this. (Pal Gonzalez) Medical Decision Making - Lab Data Result diagrams: 01/13/20 13:06 01/13/20 13:06 <Reddy Castillo - Last Filed: 01/13/20 16:16> - Lab Data Result diagrams: 01/13/20 13:06 01/13/20 13:06 <Pal Gonzalez - Last Filed: 01/13/20 16:20> - Medical Decision Making Patient's labwork There is mild elevated D acid though this may be from dehydration. Patient was well-hydrated, pain is improved after Bentyl. Patient's discomfort or discharge she'll be discharged on Bentyl with close follow-up return parameters were discussed. Patient CT does reveal evidence of splenomegaly a though there is no specific reason at this time. Patient symptoms are improved at this time. He has no signs of bleeding. Denies any rectal bleeding no hematuria. Patient we discharged in stable condition. (Reddy Castillo) - Lab Data Lab Results 01/13/20 01/13/20 01/13/20 Range/Units 13:06 13:06 13:06 WBC 8.1 (3.8-10.6) k/uL RBC 4.50 (4.30-5.90) m/uL Hgb 12.9 L (13.0-17.5) gm/dL Hct 39.2 (39.0-53.0) % MCV 87.1 (80.0-100.0) fL MCH 28.6 (25.0-35.0) pg MCHC 32.8 (31.0-37.0) g/dL RDW 15.0 (11.5-15.5) % Plt Count 283 (150-450) k/uL Neutrophils % 72 % Lymphocytes % 15 % Monocytes % 6 % Eosinophils % 5 % Basophils % 1 % Neutrophils # 5.8 (1.3-7.7) k/uL Lymphocytes # 1.2 (1.0-4.8) k/uL Monocytes # 0.5 (0-1.0) k/uL Eosinophils # 0.4 (0-0.7) k/uL Basophils # 0.1 (0-0.2) k/uL Sodium 140 (137-145) mmol/L Potassium 4.8 (3.5-5.1) mmol/L Chloride 104 (98-107) mmol/L Carbon Dioxide 22 (22-30) mmol/L Anion Gap 14 mmol/L BUN 14 (9-20) mg/dL Creatinine 0.94 (0.66-1.25) mg/dL Est GFR (CKD-EPI)AfAm >90 (>60 ml/min/1.73 sqM) Est GFR (CKD-EPI)NonAf 81 (>60 ml/min/1.73 sqM) Glucose 148 H (74-99) mg/dL Plasma Lactic Acid John Paul 2.7 H* (0.7-2.0) mmol/L Calcium 9.6 (8.4-10.2) mg/dL Total Bilirubin 0.6 (0.2-1.3) mg/dL AST 53 (17-59) U/L ALT 41 (4-49) U/L Alkaline Phosphatase 82 (38-126) U/L Total Protein 7.8 (6.3-8.2) g/dL Albumin 4.6 (3.5-5.0) g/dL Amylase 74 (30-110) U/L Lipase 108 (23-300) U/L Urine Color Urine Appearance (Clear) Urine pH (5.0-8.0) Ur Specific [place] (1.001-1.035) Urine Protein (Negative) Urine Glucose (UA) (Negative) Urine Ketones (Negative) Urine Blood (Negative) Urine Nitrite (Negative) Urine Bilirubin (Negative) Urine Urobilinogen (<2.0) mg/dL Ur Leukocyte Esterase (Negative) Heterophile Antibody (Negative) 01/13/20 01/13/20 Range/Units 13:06 13:06 WBC (3.8-10.6) k/uL RBC (4.30-5.90) m/uL Hgb (13.0-17.5) gm/dL Hct (39.0-53.0) % MCV (80.0-100.0) fL MCH (25.0-35.0) pg MCHC (31.0-37.0) g/dL RDW (11.5-15.5) % Plt Count (150-450) k/uL Neutrophils % % Lymphocytes % % Monocytes % % Eosinophils % % Basophils % % Neutrophils # (1.3-7.7) k/uL Lymphocytes # (1.0-4.8) k/uL Monocytes # (0-1.0) k/uL Eosinophils # (0-0.7) k/uL Basophils # (0-0.2) k/uL Sodium (137-145) mmol/L Potassium (3.5-5.1) mmol/L Chloride (98-107) mmol/L Carbon Dioxide (22-30) mmol/L Anion Gap mmol/L BUN (9-20) mg/dL Creatinine (0.66-1.25) mg/dL Est GFR (CKD-EPI)AfAm (>60 ml/min/1.73 sqM) Est GFR (CKD-EPI)NonAf (>60 ml/min/1.73 sqM) Glucose (74-99) mg/dL Plasma Lactic Acid John Paul (0.7-2.0) mmol/L Calcium (8.4-10.2) mg/dL Total Bilirubin (0.2-1.3) mg/dL AST (17-59) U/L ALT (4-49) U/L Alkaline Phosphatase (38-126) U/L Total Protein (6.3-8.2) g/dL Albumin (3.5-5.0) g/dL Amylase (30-110) U/L Lipase (23-300) U/L Urine Color Yellow Urine Appearance Clear (Clear) Urine pH 5.0 (5.0-8.0) Ur Specific [place] 1.020 (1.001-1.035) Urine Protein Negative (Negative) Urine Glucose (UA) Negative (Negative) Urine Ketones Negative (Negative) Urine Blood Negative (Negative) Urine Nitrite Negative (Negative) Urine Bilirubin Negative (Negative) Urine Urobilinogen <2.0 (<2.0) mg/dL Ur Leukocyte Esterase Negative (Negative) Heterophile Antibody Negative (Negative) Disposition Is patient prescribed a controlled substance at d/c from ED?: No <Reddy Castillo - Last Filed: 01/13/20 16:16> <Pal Gonzalez - Last Filed: 01/13/20 16:20> Clinical Impression: Abdominal pain Disposition: HOME SELF-CARE Condition: Stable Instructions (If sedation given, give patient instructions): Abdominal Pain (ED) Additional Instructions: Please return to the Emergency Department if symptoms worsen or any other concerns. Prescriptions: Dicyclomine [Bentyl] 20 mg PO TID #30 tablet Omeprazole [PriLOSEC] 20 [facility] cap Referrals: Misael Oro DO [Primary Care Provider] - 1-2 days
== END 2020-01-13 16:39 | disposition home or self-care (01) ==
LOC: EC 12:37
DX: R10.12 Left upper quadrant pain (principal); R79.1 Abnormal coagulation profile; R16.1 Splenomegaly, not elsewhere classified; E11.9 Type 2 diabetes mellitus without complications; I10 Essential (primary) hypertension; I48.91 Unspecified atrial fibrillation; E78.5 Hyperlipidemia, unspecified; G47.30 Sleep apnea, unspecified; N42.9 Disorder of prostate, unspecified; Z79.01 Long term (current) use of anticoagulants; Z79.82 Long term (current) use of aspirin; Z79.84 Long term (current) use of oral hypoglycemic drugs; Z79.899 Other long term (current) drug therapy; Z99.89 Dependence on other enabling machines and devices; Z95.5 Presence of coronary angioplasty implant and graft; Z86.73 Personal history of transient ischemic attack (TIA), and cerebral infarction without residual deficits
CPT/HCPCS: 36415; 80053; 82150; 83605; 83690; 85025; 86308; 81003; 74177; 99284; 96374; 96375 ×2; 96361 ×2; J2270; J2405; Q9967

== ENCOUNTER 2020-03-17 18:27 | Inpatient (IN) | payer MEDICARE ==
[2020-03-17] MEDS ORDERED: ADENOSINE 3 MG/ML 2 ML VIAL IVP STA (18:44)
[2020-03-17] MEDS ORDERED: DILTIAZEM DRIP BOLUS FROM BAG 1 MG SOLN IV ONE (18:57)
[2020-03-17] MEDS ORDERED: DILTIAZEM 125 MG in SODIUM CHLORIDE 0.9% 100 ML IV SCH (19:00)
--- NOTE | 2020-03-17 19:10 | ED ---
General Adult HPI - General Chief complaint: Chest Pain Stated complaint: chest pain Time Seen by Provider: 03/17/20 18:30 Source: patient, RN notes reviewed, old records reviewed Mode of arrival: wheelchair Limitations: physical limitation - History of Present Illness Initial comments: This is a 74-year-old male who presents emergency Department with a past medical history significant for atrial fibrillation. Patient states today about an hour prior to arrival he started having some palpitations in his chest and some chest heaviness. Patient states she was mildly short of breath at the time to per patient states he took his heart rate at home was 160 beats a minute. Patient states this has happened in the past but it normally resolves on its own and he did not today. Patient denies any recent fever chills or cough per patient denies any lightheadedness dizziness or near syncopal episode. Patient denies headache patient denies numbness weakness. Patient denies any abdominal pain patient denies nausea vomiting diarrhea. - Related Data Home Medications Medication Instructions Recorded Confirmed Alfuzosin HCl [Alfuzosin HCl ER] 10 mg PO HS 01/24/17 01/16/19 Aspirin EC [Ecotrin Low Dose] 81 mg PO DAILY 01/24/17 01/16/19 Atorvastatin Calcium [Lipitor] 10 mg PO HS 01/24/17 01/16/19 Gabapentin [Neurontin] 100 mg PO TID 01/24/17 01/16/19 Latanoprost Ophth [Xalatan 0.005%] 1 drops BOTH EYES HS 01/24/17 01/16/19 Dronedarone [Multaq] 400 mg PO BID 08/31/18 01/16/19 metFORMIN HCL [Glucophage] 500 mg PO BID 08/31/18 01/16/19 Metoprolol Tartrate [Lopressor] 100 mg PO DAILY 01/16/19 01/16/19 Warfarin [Coumadin] 2.5 mg PO FR 01/16/19 01/16/19 Warfarin [Coumadin] 5 mg PO SUMOTUWETHSA 01/16/19 01/16/19 amLODIPine [Norvasc] 5 mg PO DAILY 01/16/19 01/16/19 Previous Rx's Medication Instructions Recorded Hydrocodone/Acetaminophen [[place] 1 each PO Q6HR PRN #20 tab 01/24/17 5-325] Dicyclomine [Bentyl] 20 mg PO TID #30 tablet 01/13/20 Omeprazole [PriLOSEC] 20 mg PO AC-BRKFST #14 cap 01/13/20 Allergies Allergy/AdvReac Type Severity Reaction Status Date / Time No Known Allergies Allergy Verified 03/17/20 18:33 Review of Systems ROS Statement: Those systems with pertinent positive or pertinent negative responses have been documented in the HPI. ROS Other: All systems not noted in ROS Statement are negative. Past Medical History Past Medical History: Atrial Fibrillation, CVA/TIA, Diabetes Mellitus, Hyperlipidemia, Hypertension, Osteoarthritis (OA), Prostate Disorder, Skin Disorder, Sleep Apnea/CPAP/BIPAP Additional Past Medical History / Comment(s): CHILDHOOD POLIO, TIA -no residual effects, psoriasis, has cpap machine History of Any Multi-Drug Resistant Organisms: None Reported Past Surgical History: Cardiac Ablation, Heart Catheterization, Tonsillectomy Additional Past Surgical History / Comment(s): HX OF EPIDURALS FOR PAIN, MARYA CATARACTS, cardioversion x2 Past Anesthesia/Blood Transfusion Reactions: No Reported Reaction Past Psychological History: No Psychological Hx Reported Smoking Status: Never smoker Past Alcohol Use History: None Reported Past Drug Use History: None Reported - Past Family History Father Family Medical History: Cancer General Exam - General Exam Comments Initial Comments: GENERAL: Patient is well-developed and well-nourished. Patient is nontoxic and well- hydrated and is in mild distress. ENT: Neck is soft and supple. No significant lymphadenopathy is noted. Oropharynx is clear. Moist mucous membranes. Neck has full range of motion without eliciting any pain. EYES: The sclera were anicteric and conjunctiva were pink and moist. Extraocular movements were intact and pupils were equal round and reactive to light. Eyelids were unremarkable. PULMONARY: Unlabored respirations. Good breath sounds bilaterally. No audible rales rhonchi or wheezing was noted. CARDIOVASCULAR: Patient has is tachycardic at 160 beats a minute ABDOMEN: Soft and nontender with normal bowel sounds. SKIN: Skin is clear with no lesions or rashes and otherwise unremarkable. NEUROLOGIC: Patient is alert and oriented x3. Cranial nerves II through XII are grossly intact. Motor and sensory are also intact. Normal speech, volume and content. Symmetrical smile. MUSCULOSKELETAL: Normal extremities with adequate strength and full range of motion. 1+ edema LYMPHATICS: No significant lymphadenopathy is noted PSYCHIATRIC: Normal psychiatric evaluation. Limitations: physical limitation Course Vital Signs 03/17/20 03/17/20 03/17/20 18:28 19:06 19:49 Temperature 98.7 F Pulse Rate 167 H 112 H Respiratory 24 18 18 Rate Blood Pressure 136/79 139/96 O2 Sat by Pulse 96 94 L Oximetry Medical Decision Making - Medical Decision Making EKG shows atrial flutter 2-1 AV conduction 165 bpm QRS is 88 QT interval 320 QTC is 5:30. I gave the patient 6 of adenosine to see if it was indeed flutter and it appeared so after the 6 of adenosine his rate slowed down it showed the obvious flutter waves. I started the patient on Cardizem. I will back into the room after all the labs were back on the patient patient's heart rate was down to 112 beats a minute on the Cardizem. I spoke with the physician general office assistant for Dr. Chen he agreed to admit the pat ient admitted the patient wrote admitting orders I consult cardiology continued the Cardizem drip on the floor. Patient did not need any anticoagulation because he was already on Coumadin. Patient indicated to me that he also just remembered that he had a medication to control his heart rate but he has been unable to get it because he normally goes to the office to get free samples but the office does not have any free samples because none of the drug rubs or coming to the office during the COVID virus pandemic - Lab Data Result diagrams: 03/17/20 18:49 03/17/20 18:49 Lab Results 03/17/20 03/17/20 03/17/20 Range/Units 18:49 18:49 18:49 WBC 5.5 (3.8-10.6) k/uL RBC 4.57 (4.30-5.90) m/uL Hgb 13.4 (13.0-17.5) gm/dL Hct 40.2 (39.0-53.0) % MCV 88.0 (80.0-100.0) fL MCH 29.4 (25.0-35.0) pg MCHC 33.4 (31.0-37.0) g/dL RDW 15.6 H (11.5-15.5) % Plt Count 297 (150-450) k/uL Neutrophils % 66 % Lymphocytes % 21 % Monocytes % 6 % Eosinophils % 5 % Basophils % 0 % Neutrophils # 3.6 (1.3-7.7) k/uL Lymphocytes # 1.1 (1.0-4.8) k/uL Monocytes # 0.3 (0-1.0) k/uL Eosinophils # 0.3 (0-0.7) k/uL Basophils # 0.0 (0-0.2) k/uL PT 28.4 H (9.0-12.0) sec INR 2.9 H (<1.2) APTT 38.5 H (22.0-30.0) sec Sodium 139 (137-145) mmol/L Potassium 4.1 (3.5-5.1) mmol/L Chloride 104 (98-107) mmol/L Carbon Dioxide 25 (22-30) mmol/L Anion Gap 10 mmol/L BUN 13 (9-20) mg/dL Creatinine 0.89 (0.66-1.25) mg/dL Est GFR (CKD-EPI)AfAm >90 (>60 ml/min/1.73 sqM) Est GFR (CKD-EPI)NonAf 85 (>60 ml/min/1.73 sqM) Glucose 146 H (74-99) mg/dL Calcium 9.6 (8.4-10.2) mg/dL Magnesium 1.8 (1.6-2.3) mg/dL Total Bilirubin 0.4 (0.2-1.3) mg/dL AST 38 (17-59) U/L ALT 39 (4-49) U/L Alkaline Phosphatase 96 (38-126) U/L Troponin I (0.000-0.034) ng/mL NT-Pro-B Natriuret Pep pg/mL Total Protein 7.8 (6.3-8.2) g/dL Albumin 4.6 (3.5-5.0) g/dL 03/17/20 03/17/20 Range/Units 18:49 18:49 WBC (3.8-10.6) k/uL RBC (4.30-5.90) m/uL Hgb (13.0-17.5) gm/dL Hct (39.0-53.0) % MCV (80.0-100.0) fL MCH (25.0-35.0) pg MCHC (31.0-37.0) g/dL RDW (11.5-15.5) % Plt Count (150-450) k/uL Neutrophils % % Lymphocytes % % Monocytes % % Eosinophils % % Basophils % % Neutrophils # (1.3-7.7) k/uL Lymphocytes # (1.0-4.8) k/uL Monocytes # (0-1.0) k/uL Eosinophils # (0-0.7) k/uL Basophils # (0-0.2) k/uL PT (9.0-12.0) sec INR (<1.2) APTT (22.0-30.0) sec Sodium (137-145) mmol/L Potassium (3.5-5.1) mmol/L Chloride (98-107) mmol/L Carbon Dioxide (22-30) mmol/L Anion Gap mmol/L BUN (9-20) mg/dL Creatinine (0.66-1.25) mg/dL Est GFR (CKD-EPI)AfAm (>60 ml/min/1.73 sqM) Est GFR (CKD-EPI)NonAf (>60 ml/min/1.73 sqM) Glucose (74-99) mg/dL Calcium (8.4-10.2) mg/dL Magnesium (1.6-2.3) mg/dL Total Bilirubin (0.2-1.3) mg/dL AST (17-59) U/L ALT (4-49) U/L Alkaline Phosphatase (38-126) U/L Troponin I <0.012 (0.000-0.034) ng/mL NT-Pro-B Natriuret Pep 199 pg/mL Total Protein (6.3-8.2) g/dL Albumin (3.5-5.0) g/dL Critical Care Time Critical Care Time: Yes Total Critical Care Time: 35 Disposition Clinical Impression: Atrial flutter with rapid ventricular response Disposition: ADMITTED IP TO THIS HOSP Referrals: Misael Oro DO [Primary Care Provider] - 1-2 days Time of Disposition: 20:02
[2020-03-17 19:18] LABS: Basophils % (A) 0 %; Eosinophils # (A) 0.3 k/uL (0-0.7); Eosinophils % (A) 5 %; HCT 40.2 % (39.0-53.0); HGB 13.4 gm/dL (13.0-17.5); Lymphocytes # (A) 1.1 k/uL (1.0-4.8); Lymphocytes % (A) 21 %; MCH 29.4 pg (25.0-35.0); MCHC 33.4 g/dL (31.0-37.0); Mean Platelet Volume 7.2; Monocytes # (A) 0.3 k/uL (0-1.0); Monocytes % (A) 6 %; Neutrophils # (A) 3.6 k/uL (1.3-7.7); Neutrophils % (A) 66 %; Platelet Count 297 k/uL (150-450); RBC 4.57 m/uL (4.30-5.90); RDW 15.6 % (11.5-15.5); WBC 5.5 k/uL (3.8-10.6)
--- NOTE | 2020-03-17 19:19 | XR ---
EXAMINATION TYPE: XR chest 2V DATE OF EXAM: 03/17/2020 COMPARISON: Chest CT June 18, 2019. Chest x-ray December 2028 HISTORY: Chest pain and palpitations. TECHNIQUE: Frontal and lateral views of the chest are obtained. FINDINGS: There is some chronic parenchymal change without suspicious new focal air space opacity, p leural effusion, or pneumothorax seen. Redemonstration vesicles lobe/fissure. The cardiac silhouette size is stable and mildly enlarged with atherosclerotic aorta. Multilevel spurring in the thoracic sp ine. Degenerative change right glenohumeral joint redemonstrated. IMPRESSION: Chronic changes and cardiomegaly without acute pulmonary process.
[2020-03-17 19:28] LABS: ALT 39 U/L (4-49); AST 38 U/L (17-59); African American GFR (CKD) >90 (>60 ml/min/1.73 sqM); Albumin 4.6 g/dL (3.5-5.0); Alkaline Phosphatase 96 U/L (38-126); Anion Gap 10 mmol/L; Blood Urea Nitrogen 13 mg/dL (9-20); Calcium 9.6 mg/dL (8.4-10.2); Carbon Dioxide 25 mmol/L (22-30); Chloride 104 mmol/L (98-107); Glucose 146 mg/dL (74-99); INR 2.9 (<1.2); Magnesium 1.8 mg/dL (1.6-2.3); Non-African American GFR(CKD) 85 (>60 ml/min/1.73 sqM); Partial Thromboplastin Time 38.5 sec (22.0-30.0); Potassium 4.1 mmol/L (3.5-5.1); Prothrombin Time 28.4 sec (9.0-12.0); Sodium 139 mmol/L (137-145); Total Bilirubin 0.4 mg/dL (0.2-1.3); Total Protein 7.8 g/dL (6.3-8.2)
[2020-03-17] MEDS ORDERED: NITROGLYCERIN SL TABS 0.4 MG TAB SUBLINGUAL PRN (20:03)
[2020-03-17 21:22] LABS: Glucose,Whole Blood 191 mg/dL (75-99)
[2020-03-17] MEDS ORDERED: LATANOPROST 0.005% OPHTH DROPS 2.5 ML BTL BOTH EYES SCH (23:00)
[2020-03-17] MEDS ORDERED: ATORVASTATIN 10 MG TAB PO SCH (23:00)
[2020-03-17] MEDS: GABAPENTIN 100 MG CAP PO SCH (23:37)
[2020-03-17] MEDS: HYDROcodone/APAP 5-325MG 1 EACH TAB PO PRN (23:37)
[2020-03-18 06:03] LABS: Glucose,Whole Blood 137 mg/dL (75-99)
[2020-03-18 08:05] LABS: Cholesterol 149 mg/dL (<200); HDL Cholesterol 28 mg/dL (40-60); LDL Cholesterol,Calculated 87 mg/dL (0-99); Triglycerides 172 mg/dL (<150)
[2020-03-18] MEDS ORDERED: ASPIRIN 325 MG TAB PO SCH ×2 (09:00→09:30)
[2020-03-18] MEDS ORDERED: amLODIPine 5 MG TAB PO STA (09:49)
[2020-03-18] MEDS ORDERED: ASPIRIN 325 MG TAB PO STA (09:49)
[2020-03-18] MEDS ORDERED: METOPROLOL TARTRATE 50 MG TAB PO STA (09:50)
[2020-03-18 10:07] LABS: INR 2.4 (<1.2); Prothrombin Time 23.8 sec (9.0-12.0)
[2020-03-18] MEDS: GABAPENTIN 100 MG CAP PO SCH ×2 (10:13→16:02)
[2020-03-18] MEDS: HYDROcodone/APAP 5-325MG 1 EACH TAB PO PRN (10:19)
[2020-03-18 11:16] LABS: Glucose,Whole Blood 223 mg/dL (75-99)
--- NOTE | 2020-03-18 11:27 | P.CRDCN ---
History of Present Illness Consult date: 03/18/20 Requesting physician: Laquita Chen Consult reason: atrial flutter Chief complaint: Chest pressure, palpitations History of present illness: This is a pleasant 74-year-old gentleman with history of hypertension, diabetes, hyperlipidemia, sleep apnea, prior TIA, paroxysmal atrial fibrillation for which the patient underwent a cardioversion in 2017, patient also has history of undergoing a pulmonary vein isolation in February [address] Phillips. He presented to the hospital with symptoms of chest pressure with associated palpitations, he states that he intermittently has been getting these, when he sits down and relaxes they usually dissipate. On this occasion the heart remai gail Fast, in spite of the patient relaxing. He states that he checked his heart rate and was 160-170. On presentation here the EKG showed atrial flutter with a rapid ventricular response, patient was given a dose of adenosine in the emergency room which confirmed the underlying atrial flutter. Patient was then initiated on IV Cardizem. He takes Coumadin for anticoagulation. He also states that he was put on Multaq, but he has not taken this for the past 2 weeks because of the significant cost involved with the medication. They had been providing samples in the office, but recently had not had any samples. This morning the patient is in a normal sinus rhythm. Chest x-ray shows chronic changes without any acute changes noted. Laboratory data was reviewed, white blood cell count 5.5, hemoglobin 13.4, platelet count 297, INR 2.4, sodium 139, potassium 4.1, BUN 13, creatinine 0.8 troponins 0.012, 0.05, 0.05. TSH 2.3. At the time of my examination this morning, the patient is currently in a normal sinus rhythm and overall feels well and is quite eager to be discharged home. We are going to check in with the employee relations representative for Mult[employer], to see if we can get some samples for the patient. If so we will resume the patient's Multaq, he may then be able to be discharged home. To follow-up with Dr. Mayfield in the office. Past Medical History Past Medical History: Atrial Fibrillation, CVA/TIA, Diabetes Mellitus, Hyperlipidemia, Hypertension, Osteoarthritis (OA), Prostate Disorder, Skin Disorder, Sleep Apnea/CPAP/BIPAP Additional Past Medical History / Comment(s): CHILDHOOD POLIO, TIA -no residual effects, psoriasis, has cpap machine History of Any Multi-Drug Resistant Organisms: None Reported Past Surgical History: Cardiac Ablation, Heart Catheterization, Tonsillectomy Additional Past Surgical History / Comment(s): HX OF EPIDURALS FOR PAIN, MARYA CATARACTS, cardioversion x2 Past Anesthesia/Blood Transfusion Reactions: No Reported Reaction Past Psychological History: No Psychological Hx Reported Smoking Status: Never smoker Past Alcohol Use History: None Reported Past Drug Use History: None Reported - Past Family History Father Family Medical History: Cancer Medications and Allergies Home Medications Medication Instructions Recorded Confirmed Type Alfuzosin HCl [Alfuzosin HCl ER] 10 mg PO HS 01/24/17 03/17/20 History Atorvastatin Calcium [Lipitor] 10 mg PO HS 01/24/17 03/17/20 History Gabapentin [Neurontin] 100 mg PO TID 01/24/17 03/17/20 History Hydrocodone/Acetaminophen [[place] 1 each PO Q6HR PRN #20 tab 01/24/17 03/17/20 Rx 5-325] Latanoprost Ophth [Xalatan 0.005%] 1 drops BOTH EYES HS 01/24/17 03/17/20 History Dronedarone [Multaq] 400 mg PO BID 08/31/18 03/17/20 History metFORMIN HCL [Glucophage] 500 mg PO BID 08/31/18 03/17/20 History Metoprolol Tartrate [Lopressor] 100 mg PO DAILY 01/16/19 03/17/20 History Warfarin [Coumadin] 2.5 mg PO FR 01/16/19 03/17/20 History Warfarin [Coumadin] 5 mg PO SUMOTUWETHSA 01/16/19 03/17/20 History amLODIPine [Norvasc] 5 mg PO DAILY 01/16/19 03/17/20 History Omeprazole [PriLOSEC] 20 mg PO AC-BRKFST #14 cap 01/13/20 03/17/20 Rx Aspirin 325 mg PO DAILY 03/18/20 03/18/20 History Allergies Allergy/AdvReac Type Severity Reaction Status Date / Time No Known Allergies Allergy Verified 03/17/20 18:33 Physical Exam Vitals: Vital Signs Temp Pulse Pulse Resp BP BP Pulse Ox 03/18/20 07:40 97.9 F 76 20 151/74 95 04/22/20 06:12 85 16 134/84 95 03/17/20 23:40 85 16 139/72 95 03/17/20 21:46 97.8 F 107 H 18 142/92 93 L 03/17/20 20:30 115 H 20 123/93 03/17/20 20:20 112 H 21 123/93 03/17/20 20:10 112 H 19 123/93 94 L 03/17/20 20:00 19 139/96 94 L 03/17/20 19:50 109 H 9 L 139/96 93 L 03/17/20 19:49 112 H 18 139/96 94 L 03/17/20 19:06 18 03/17/20 18:28 98.7 F 167 H 24 136/79 96 Intake and Output 03/17/20 03/18/20 03/18/20 22:59 06:59 14:59 Intake Total 360 Output Total 300 Balance 60 Intake: Oral 360 Output: Urine 300 Other: Voiding Method Toilet Urinal # Voids 2 1 Weight 97.522 kg 102.6 kg PHYSICAL EXAMINATION: GENERAL: 74-year-old gentleman in no acute distress at the time of my examination HEENT: Head is atraumatic, normocephalic. Pupils equal, round. Sclera anicteric. Conjunctiva are clear. Mucous membranes of the mouth are moist. Neck is supple. There is no elevated jugular venous pressure. No carotid bruit is heard. HEART EXAMINATION: Heart S1 S2 1 systolic murmur is heard CHEST EXAMINATION: Lungs are clear to auscultation and precussion. No chest wall tenderness is noted on palpation or with deep breathing. ABDOMEN: Soft, nontender. Bowel sounds are heard. No organomegaly noted. EXTREMITIES: 2+ peripheral pulses with no evidence of peripheral edema and no calf tenderness noted. NEUROLOGIC [patient is awake, alert and oriented 3 Results 03/17/20 18:49 03/17/20 18:49 Cardiac Enzymes 03/17/20 03/17/20 03/18/20 Range/Units 18:49 18:49 00:38 AST 38 (17-59) U/L Troponin I <0.012 0.582 H* (0.000-0.034) ng/mL 03/18/20 Range/Units 06:53 AST (17-59) U/L Troponin I 0.564 H* (0.000-0.034) ng/mL Coagulation 03/17/20 03/18/20 Range/Units 18:49 09:50 PT 28.4 H 23.8 H (9.0-12.0) sec APTT 38.5 H (22.0-30.0) sec Lipids 03/18/20 Range/Units 06:53 Triglycerides 172 H (<150) mg/dL Cholesterol 149 (<200) mg/dL HDL Cholesterol 28 L (40-60) mg/dL CBC 03/17/20 Range/Units 18:49 WBC 5.5 (3.8-10.6) k/uL RBC 4.57 (4.30-5.90) m/uL Hgb 13.4 (13.0-17.5) gm/dL Hct 40.2 (39.0-53.0) % Plt Count 297 (150-450) k/uL Comprehensive Metabolic Panel 03/17/20 Range/Units 18:49 Sodium 139 (137-145) mmol/L Potassium 4.1 (3.5-5.1) mmol/L Chloride 104 (98-107) mmol/L Carbon Dioxide 25 (22-30) mmol/L BUN 13 (9-20) mg/dL Creatinine 0.89 (0.66-1.25) mg/dL Glucose 146 H (74-99) mg/dL Calcium 9.6 (8.4-10.2) mg/dL AST 38 (17-59) U/L ALT 39 (4-49) U/L Alkaline Phosphatase 96 (38-126) U/L Total Protein 7.8 (6.3-8.2) g/dL Albumin 4.6 (3.5-5.0) g/dL Current Medications Generic Name Dose Route Start Last Admin Trade Name Freq PRN Reason Stop Dose Admin Hydrocodone Bitart/Acetaminophen 1 each 03/17/20 22:50 03/18/20 10:19 [place] 5-325 PO 1 each Q6HR PRN Administration Pain Amlodipine Besylate 5 mg 03/19/20 09:00 Norvasc PO DAILY [facility] Aspirin 325 mg 03/19/20 09:00 Aspirin PO DAILY [facility] Atorvastatin Calcium 10 mg 03/17/20 23:00 03/17/20 23:37 Lipitor PO 10 mg HS ANA Administration Famotidine 20 mg 03/18/20 21:00 Pepcid IV Q12HR ANA Gabapentin 100 mg 03/17/20 23:00 03/18/20 10:13 Neurontin PO 100 mg TID ANA Administration Diltiazem HCl 125 mg/ Sodium 125 mls @ 5 mls/hr 03/17/20 19:00 03/17/20 19:22 Chloride IV 5 mg/hr .Q24H ANA 5 mls/hr Administration 5 MG/HR Latanoprost 1 drops 03/17/20 23:00 03/17/20 23:37 Xalatan 0.005% BOTH EYES 1 drops HS ANA Administration Metformin HCl 500 mg 03/18/20 17:30 Glucophage PO BID-W/MEALS ANA Metoprolol Tartrate 100 mg 03/19/20 09:00 Lopressor PO DAILY ANA Nitroglycerin 0.4 mg 03/17/20 20:03 Nitrostat SUBLINGUAL Q5M PRN Chest Pain Tamsulosin HCl 0.4 mg 03/18/20 21:00 Flomax PO HS ANA Warfarin Sodium 2.5 mg 03/20/20 18:00 Coumadin PO FR ANA Protocol Warfarin Sodium 5 mg 03/18/20 18:00 Coumadin PO SUMOTUWETHSA [facility] Protocol Intake and Output 03/17/20 03/18/20 03/18/20 22:59 06:59 14:59 Intake Total 360 Output Total 300 Balance 60 Intake: Oral 360 Output: Urine 300 Other: Voiding Method Toilet Urinal # Voids 2 1 Weight 97.522 kg 102.6 kg 03/17/20 18:49 03/17/20 18:49 EKG Interpretations (text) Initial EKG showed atrial flutter with a rapid ventricular response Assessment and Plan Plan: Assessment and plan #1 atrial flutter, typical, with rapid ventricular response, currently in a norm al sinus rhythm. Patient had a recent echocardiogram with Doppler study performed at the office on March 02 it revealed a normally functioning LV, mild to moderate tricuspid regurgitation, mild MR. #2 diabetes #3 history of paroxysmal atrial fibrillation with prior cardioversion and pulmonary vein isolation #4 hypertension #5 hyperlipidemia Plan We will continue with current anticoagulation. We will also attempt to get the patient samples of Multaq. He should be able to be discharged home today to follow-up with Dr. Mayfield in the office post discharge. DNP note has been reviewed, I agree with a documented findings and plan of care. Patient was seen and examined.
--- NOTE | 2020-03-18 12:55 | P.HPIM ---
History of Present Illness Please consider this note as combined H and P and discharge summary Diagnoses: atrial flutter with 2:1 AV blockwith elevated troponin, secondary to noncompliance to medications. Improved with Cardizem drip. Patient resumed on Multaq Chronic atrial fibrillation on warfarin Hypertension Hyperlipidemia Diabetes mellitus Sleep apnea on CPAP/BiPAP Osteoarthritis History of CVA/TIA Hospital course: this is a pleasant 74 years old male with past medical history of hypertension, hyperlipidemia, diabetes mellitus,atrial fibrillation on warfarin, CVA/TIA, osteoarthritis, sleep apnea on CPAP/BiPAP, psoriasis. He is a patient of Dr. Oro.presents because of chest heaviness and palpitation of one hour duration. Patient is a known case of A. fib/flutter and he follows up with Dr. Mayfield his gem cutter as an outpatient who has been providing him with multaq medicine which kept his heart rate from racing up, the co-pay for Multaq was 500 Dollars which patient cannot afford so he has been getting samples from Dr. Mayfield till about 2 weeks ago when he ran out of it and the office was closed or they did not have the samples. So patient yesterday felt palpitation with heart tracing associated with chest pain, moderate in severity for a few hours only, he checked his heart rate and it was 170, he rested down but with no resolution he decided to come to the hospital. Sales Representative [employer] evaluated the patient and resume his Multaq (dronedarone). Cardiology team are planning to provide the patient with samples vitals are stable. Patient is afebrile.INR is 2.9. Unremarkable CBC, BMP and liver enzymes. Elevated troponin 0.5 x2 1 normal troponin on presentation was less than 0.012 EKG showing atrial flutter with 2:1 A-V block, QTC 430. Chest x-ray showing chronic changes without acute process per radiologist patient was given adenosine x1, and then started on Cardizem drip at 5 mg per hour patient was restarted on Multaq, Eventually patient back to his normal state with no chest pain or palpitation, no other complaints. Like no coughing, no dyspnea, no abdominal pain or nausea vomiting. No fever Patient thinks he can go home. Cardiology service cleared the patient for discharge Problems and management plan were discussed with the patient and he verbalized understanding and acceptance Patient was found stable and can be discharged home however he needs follow-up as an outpatient. Patient was instructed to follow up with PCP within one week and patient agrees. Patient also was instructed to follow up with Dr. Mayfield in 1-2 weeks and he agrees CONSTITUTIONAL: No fever, no malaise, no fatigue. HEENT: No recent visual problems or hearing problems. Denied any sore throat. CARDIOVASCULAR: No orthopnea, PND, no palpitations, no syncope. PULMONARY: No shortness of breath, no cough, no hemoptysis. GASTROINTESTINAL: No diarrhea, no nausea, no vomiting, no abdominal pain. Normoactive bowel sounds. NEUROLOGICAL: No headaches, no weakness, no numbness. HEMATOLOGICAL: Denies any bleeding or petechiae. GENITOURINARY: Denies any burning micturition, frequency, or urgency. MUSCULOSKELETAL/RHEUMATOLOGICAL: Denies any joint pain, swelling, or any muscle pain. ENDOCRINE: Denies any polyuria or polydipsia. Gen: patient is a AAOx3, no distress of these CVS: S1-S2, RRR, no murmur Lungs: B/L CTA, no wheezing Abdomen: soft, no distention, no tenderness, positive bowel sounds Extremity: no leg edema or induration Time spent more than 35 minutes Past Medical History Past Medical History: Atrial Fibrillation, CVA/TIA, Diabetes Mellitus, Hyperlipi demia, Hypertension, Osteoarthritis (OA), Prostate Disorder, Skin Disorder, Sleep Apnea/CPAP/BIPAP Additional Past Medical History / Comment(s): CHILDHOOD POLIO, TIA -no residual effects, psoriasis, has cpap machine History of Any Multi-Drug Resistant Organisms: None Reported Past Surgical History: Cardiac Ablation, Heart Catheterization, Tonsillectomy Additional Past Surgical History / Comment(s): HX OF EPIDURALS FOR PAIN, MARYA CATARACTS, cardioversion x2 Past Anesthesia/Blood Transfusion Reactions: No Reported Reaction Past Psychological History: No Psychological Hx Reported Smoking Status: Never smoker Past Alcohol Use History: None Reported Past Drug Use History: None Reported - Past Family History Father Family Medical History: Cancer Medications and Allergies Home Medications Medication Instructions Recorded Confirmed Type Alfuzosin HCl [Alfuzosin HCl ER] 10 mg PO HS 01/24/17 03/17/20 History Atorvastatin Calcium [Lipitor] 10 mg PO HS 01/24/17 03/17/20 History Gabapentin [Neurontin] 100 mg PO TID 01/24/17 03/17/20 History Hydrocodone/Acetaminophen [[place] 1 each PO Q6HR PRN #20 tab 01/24/17 03/17/20 Rx 5-325] Latanoprost Ophth [Xalatan 0.005%] 1 drops BOTH EYES HS 01/24/17 03/17/20 History Dronedarone [Multaq] 400 mg PO BID 08/31/18 03/17/20 History metFORMIN HCL [Glucophage] 500 mg PO BID 08/31/18 03/17/20 History Metoprolol Tartrate [Lopressor] 100 mg PO DAILY 01/16/19 03/17/20 History Warfarin [Coumadin] 2.5 mg PO FR 01/16/19 03/17/20 History Warfarin [Coumadin] 5 mg PO SUMOTUWETHSA 01/16/19 03/17/20 History amLODIPine [Norvasc] 5 mg PO DAILY 01/16/19 03/17/20 History Omeprazole [PriLOSEC] 20 mg PO AC-BRKFST #14 cap 01/13/20 03/17/20 Rx Aspirin 325 mg PO DAILY 03/18/20 03/18/20 History Allergies Allergy/AdvReac Type Severity Reaction Status Date / Time No Known Allergies Allergy Verified 03/17/20 18:33 Physical Exam Vitals: Vital Signs Temp Pulse Pulse Resp BP BP Pulse Ox 03/18/20 07:40 97.9 F 76 20 151/74 95 03/18/20 06:12 85 16 134/84 95 03/17/20 23:40 85 16 139/72 95 03/17/20 21:46 97.8 F 107 H 18 142/92 93 L 03/17/20 20:30 115 H 20 123/93 03/17/20 20:20 112 H 21 123/93 03/17/20 20:10 112 H 19 123/93 94 L 03/17/20 20:00 19 139/96 94 L 03/17/20 19:50 109 H 9 L 139/96 93 L 03/17/20 19:49 112 H 18 139/96 94 L 03/17/20 19:06 18 03/17/20 18:28 98.7 F 167 H 24 136/79 96 Intake and Output 03/17/20 03/18/20 03/18/20 22:59 06:59 14:59 Intake Total 360 Balance 360 Intake: Oral 360 Other: Voiding Method Toilet Urinal # Voids 2 Weight 97.522 kg 102.6 kg GENERAL: The patient is alert and oriented x3, not in any acute distress. Well developed, well nourished. HEENT: Pupils are round and equally reacting to light. EOMI. No scleral icterus. No conjunctival pallor. Normocephalic, atraumatic. No pharyngeal erythema. No thyromegaly. CARDIOVASCULAR: S1 and S2 present. No murmurs, rubs, or gallops. PULMONARY: Chest is clear to auscultation, no wheezing or crackles. ABDOMEN: Soft, nontender, nondistended, normoactive bowel sounds. No palpable organomegaly. MUSCULOSKELETAL: No joint swelling or deformity. EXTREMITIES: No cyanosis, clubbing, or pedal edema. NEUROLOGICAL: Gross neurological examination did not reveal any focal deficits. SKIN: No rashes. No petechiae Results CBC & Chem 7: 03/17/20 18:49 03/17/20 18:49 Labs: Abnormal Lab Results - Last 24 Hours (Table) 03/17/20 03/17/20 03/17/20 Range/Units 18:49 18:49 18:49 RDW 15.6 H (11.5-15.5) % PT 28.4 H (9.0-12.0) sec INR 2.9 H (<1.2) APTT 38.5 H (22.0-30.0) sec Glucose 146 H (74-99) mg/dL POC Glucose (mg/dL) (75-99) mg/dL Troponin I (0.000-0.034) ng/mL Triglycerides (<150) mg/dL HDL Cholesterol (40-60) mg/dL 03/17/20 03/18/20 03/18/20 Range/Units 21:20 00:38 06:01 RDW (11.5-15.5) % PT (9.0-12.0) sec INR (<1.2) APTT (22.0-30.0) sec Glucose (74-99) mg/dL POC Glucose (mg/dL) 191 H 137 H (75-99) mg/dL Troponin I 0.582 H* (0.000-0.034) ng/mL Triglycerides (<150) mg/dL HDL Cholesterol (40-60) mg/dL 03/18/20 03/18/20 Range/Units 06:53 06:53 RDW (11.5-15.5) % PT (9.0-12.0) sec INR (<1.2) APTT (22.0-30.0) sec Glucose (74-99) mg/dL POC Glucose (mg/dL) (75-99) mg/dL Troponin I 0.564 H* (0.000-0.034) ng/mL Triglycerides 172 H (<150) mg/dL HDL Cholesterol 28 L (40-60) mg/dL Thrombosis Risk Factor Assmnt - Choose All That Apply Any of the Below Risk Factors Present?: Yes Each Factor Represents 1 point: Obesity (BMI >25) Other Risk Factors: Yes Each Risk Factor Represents 2 Points: Age 61-74 years Thrombosis Risk Factor Assessment Total Risk Factor Score: 3 Thrombosis Risk Factor Assessment Level: Moderate Risk
[2020-03-18] MEDS: DRONEDARONE 400 MG TAB PO SCH ×2 (13:44→16:01)
[2020-03-18 14:21] VITALS: BP 132/71; PULSE 69; RESP 18; TEMP 98.3
[2020-03-18 16:16] LABS: Glucose,Whole Blood 159 mg/dL (75-99)
[2020-03-18] MEDS ORDERED: metFORMIN 500 MG TAB PO SCH (17:30)
[2020-03-18] MEDS ORDERED: WARFARIN 5 MG TAB PO SCH (18:00)
[2020-03-18] MEDS ORDERED: TAMSULOSIN 0.4 MG CAP.ER.24H PO SCH (21:00)
[2020-03-18] MEDS ORDERED: FAMOTIDINE 20 MG/2 ML VIAL IV SCH (21:00)
[2020-03-19] MEDS ORDERED: amLODIPine 5 MG TAB PO SCH (09:00)
[2020-03-19] MEDS ORDERED: ASPIRIN 325 MG TAB PO SCH (09:00)
[2020-03-19] MEDS ORDERED: METOPROLOL TARTRATE 50 MG TAB PO SCH (09:00)
--- NOTE | 2020-03-19 11:39 | ECHOF ---
Referral Reason:atrial flutter MEASUREMENTS -------- HEIGHT: 170.2 cm WEIGHT: 102.5 kg BP: RVIDd: 3.6 cm (< 3.3) IVSd: 1.3 cm (0.6 - 1.1) LVIDd: 4.1 cm (3.9 - 5.3) LVPWd: 1.6 cm (0.6 - 1.1) IVSs: 1.7 cm LVIDs: 2.5 cm LVPWs: 2.1 cm Ao Diam: 3.4 cm (2.0 - 3.7) AV Cusp: 1.5 cm (1.5 - 2.6) LA Diam: 4.3 cm (2.7 - 3.8) MV E Terry: 1.08 m/s MV DecT: 340 ms MV A Terry: 1.38 m/s MV E/A Ratio: 0.79 AV maxP.00 mmHg AV meanP.73 mmHg AR PHT: 360 ms RAP: 5.00 mmHg RVSP: 39.03 mmHg FINDINGS -------- The rhythm appears to be atrial flutter. This was a technically difficult study with suboptimal views. The left ventricular size is normal. There is moderate concentric left ventricular hypertrophy. O verall left ventricular systolic function is normal with, an EF between 55 - 60 %. The right ventricle is mildly enlarged. The left atrium is mildly dilated. The right atrial size is normal. Lumason used Aortic valve is trileaflet and is moderately thickened. Trace amount of aortic regurgitation. Th ere is moderate aortic stenosis present. Peak/mean gradient across the Aortic Valve is 37.00mmHg / 21.73mmHg. The mitral valve is normal. Mild mitral annular calcification present. Mild mitral regurgitation is present. The tricuspid valve appears structurally normal. Mild tricuspid regurgitation present. There is m ild pulmonary hypertension. The right ventricular systolic pressure, as measured by Doppler, is 39. 03mmHg. There is no pulmonic regurgitation present. The aortic root size is normal. IVC Not well visulized. There is no pericardial effusion. CONCLUSIONS -------- 1. The rhythm appears to be atrial flutter. 2. This was a technically difficult study with suboptimal views. 3. The left ventricular size is normal. 4. There is moderate concentric left ventricular hypertrophy. 5. Overall left ventricular systolic function is normal with, an EF between 55 - 60 %. 6. The right ventricle is mildly enlarged. 7. The left atrium is mildly dilated. 8. The right atrial size is normal. 9. Lumason used 10. Aortic valve is trileaflet and is moderately thickened. 11. Trace amount of aortic regurgitation. 12. There is moderate aortic stenosis present. 13. Peak/mean gradient across the Aortic Valve is 37.00mmHg / 21.73mmHg. 14. The mitral valve is normal. 15. Mild mitral annular calcification present. 16. Mild mitral regurgitation is present. 17. The tricuspid valve appears structurally normal. 18. Mild tricuspid regurgitation present. 19. There is mild pulmonary hypertension. 20. The right ventricular systolic pressure, as measured by Doppler, is 39.03mmHg. 21. There is no pulmonic regurgitation present. 22. The aortic root size is normal. 23. IVC Not well visulized. 24. There is no pericardial effusion. DISCHARGE COORDINATOR: Vera Meek RDCS
[2020-03-20] MEDS ORDERED: WARFARIN 2.5 MG TAB PO SCH (18:00)
== END 2020-03-18 16:45 | disposition home or self-care (01) | DRG 310 ==
LOC: EC 18:27 → 3SCARD 20:07
PROVIDERS: ADMIT Internal Medicine; ATTEND Internal Medicine
DX: I48.3 Typical atrial flutter (principal); I48.20 Chronic atrial fibrillation, unspecified; I48.0 Paroxysmal atrial fibrillation; E11.9 Type 2 diabetes mellitus without complications; E78.5 Hyperlipidemia, unspecified; G47.30 Sleep apnea, unspecified; Z99.89 Dependence on other enabling machines and devices; I08.1 Rheumatic disorders of both mitral and tricuspid valves; I10 Essential (primary) hypertension; M19.90 Unspecified osteoarthritis, unspecified site; Z79.01 Long term (current) use of anticoagulants; Z79.82 Long term (current) use of aspirin; Z79.84 Long term (current) use of oral hypoglycemic drugs; Z79.899 Other long term (current) drug therapy; Z86.73 Personal history of transient ischemic attack (TIA), and cerebral infarction without residual deficits; Z91.14 Patient's other noncompliance with medication regimen; R79.89 Other specified abnormal findings of blood chemistry; Z98.42 Cataract extraction status, left eye; Z98.41 Cataract extraction status, right eye
CPT/HCPCS: 36415; 71046; 80053; 80061; 83735; 83880; 84443; 84484; 85025; 85610; 85730; 93005; 93306; 96365; 96375; 96376; 99291

== ENCOUNTER → 2020-06-23 | Outpatient (CLI) | payer MEDICARE ==
[2020-06-23 12:07] LABS: African American GFR (CKD) >90 (>60 ml/min/1.73 sqM); Blood Urea Nitrogen 15 mg/dL (9-20); Non-African American GFR(CKD) 84 (>60 ml/min/1.73 sqM)
--- NOTE | 2020-06-23 14:16 | CT ---
EXAMINATION TYPE: CT chest w con DATE OF EXAM: 06/23/2020 COMPARISON: CT 06/18/2019 HISTORY: Solitary pulmonary nodule CT DLP: 665.8 mGycm Automated exposure control for dose reduction was used. CONTRAST: CT scan of the chest is performed with IV Contrast, patient injected with 100 mL of Isovue 300. FINDINGS: LUNGS: The lungs are stable, there is no concerning parenchymal mass or nodule identified, the nodula r density is present along the fissure. There is no pleural effusion or pneumothorax seen. The tra cheobronchial tree is patent. MEDIASTINUM: There are no greater than 1 cm hilar or mediastinal lymph nodes. No pericardial effusi on is seen. Is coronary artery calcifications are dense. AORTA: No additional significant abnormality is seen. OTHER: No additional significant interval change is seen. IMPRESSION: Stable exam, benign.
== END | disposition home or self-care (01) ==
LOC: RADCTMAIN 11:20
PROVIDERS: ATTEND Family Medicine
DX: R91.1 Solitary pulmonary nodule (principal)
CPT/HCPCS: 82565; 84520; 71260; 36415; Q9967

== ENCOUNTER 2020-08-11 14:40 | Inpatient (IN) | payer MEDICARE ==
[2020-08-11] MEDS ORDERED: IPRATROPIUM-ALBUTEROL 3 ML NEB INHALATION STA (14:56)
--- NOTE | 2020-08-11 14:56 | ED ---
SOB HPI - General Chief Complaint: Shortness of Breath Stated Complaint: SOB Time Seen by Provider: 08/11/20 14:54 Source: patient, RN notes reviewed, old records reviewed Mode of arrival: wheelchair Limitations: no limitations - History of Present Illness Initial Comments: This is a 75-year-old male DF for evaluation of multiple complaints shortness of breath palpitations generalized not feeling well. Patient has no known travel history sick contacts denies history. Patient does have history of heart disease and atrial fibrillation, is on blood thinners. Patient is that shortness of breath getting Ratna worse times last 3 days with lower ex tremity edema although he does always have lower extremity MD Complaint: shortness of breath -: days(s) (3) Severity: moderate Consistency: constant Improves With: oxygen, rest Worsens With: lying flat, exertion, movement Known History Of: congestive heart failure Context: recent URI Associated Symptoms: cough, palpitations, diaphoresis Treatments Prior to Arrival: none - Related Data Home Medications Medication Instructions Recorded Confirmed Alfuzosin HCl [Alfuzosin HCl ER] 10 mg PO HS 01/24/17 03/17/20 Atorvastatin Calcium [Lipitor] 10 mg PO HS 01/24/17 03/17/20 Gabapentin [Neurontin] 100 mg PO TID 01/24/17 03/17/20 Latanoprost Ophth [Xalatan 0.005%] 1 drops BOTH EYES HS 01/24/17 03/17/20 metFORMIN HCL [Glucophage] 500 mg PO BID 08/31/18 03/17/20 Metoprolol Tartrate [Lopressor] 100 mg PO DAILY 01/16/19 03/17/20 Warfarin [Coumadin] 2.5 mg PO FR 01/16/19 03/17/20 Warfarin [Coumadin] 5 mg PO SUMOTUWETHSA 01/16/19 03/17/20 amLODIPine [Norvasc] 5 mg PO DAILY 01/16/19 03/17/20 Aspirin 325 mg PO DAILY 03/18/20 03/18/20 Previous Rx's Medication Instructions Recorded Hydrocodone/Acetaminophen [[place] 1 each PO Q6HR PRN #20 tab 01/24/17 5-325] Omeprazole [PriLOSEC] 20 mg PO AC-BRKFST #14 cap 01/13/20 Dronedarone [Multaq] 400 mg PO BID #30 tab 03/18/20 Allergies Allergy/AdvReac Type Severity Reaction Status Date / Time No Known Allergies Allergy Verified 08/11/20 14:49 Review of Systems ROS Statement: Those systems with pertinent positive or pertinent negative responses have been documented in the HPI. ROS Other: All systems not noted in ROS Statement are negative. Past Medical History Past Medical History: Atrial Fibrillation, CVA/TIA, Diabetes Mellitus, Hyperlipidemia, Hypertension, Osteoarthritis (OA), Prostate Disorder, Skin Disorder, Sleep Apnea/CPAP/BIPAP Additional Past Medical History / Comment(s): CHILDHOOD POLIO, TIA -no residual effects, psoriasis, has cpap machine History of Any Multi-Drug Resistant Organisms: None Reported Past Surgical History: Cardiac Ablation, Heart Catheterization, Tonsillectomy Additional Past Surgical History / Comment(s): HX OF EPIDURALS FOR PAIN, MARYA CATARACTS, cardioversion x2 Past Anesthesia/Blood Transfusion Reactions: No Reported Reaction Past Psychological History: No Psychological Hx Reported Smoking Status: Never smoker Past Alcohol Use History: None Reported Past Drug Use History: None Reported - Past Family History Father Family Medical History: Cancer General Exam Limitations: no limitations General appearance: alert, in no apparent distress, anxious Head exam: Present: atraumatic, normocephalic, normal inspection Eye exam: Present: normal appearance, PERRL, EOMI. Absent: scleral icterus, conjunctival injection, periorbital swelling ENT exam: Present: normal exam, mucous membranes moist Neck exam: Present: normal inspection. Absent: tenderness, meningismus, lymphadenopathy Respiratory exam: Present: rales, accessory muscle use, decreased breath sounds, prolonged expiratory. Absent: respiratory distress, wheezes, rhonchi, stridor Cardiovascular Exam: Present: normal rhythm, bradycardia, normal heart sounds, other (Multiple PVCs). Absent: systolic murmur, diastolic murmur, rubs, gallop, clicks GI/Abdominal exam: Present: soft, normal bowel sounds. Absent: distended, tenderness, guarding, rebound, rigid Extremities exam: Present: normal inspection, full ROM, normal capillary refill. Absent: tenderness, pedal edema, joint swelling, calf tenderness Back exam: Present: normal inspection Neurological exam: Present: alert, oriented X3, CN II-XII intact Psychiatric exam: Present: normal affect, normal mood Skin exam: Present: warm, dry, intact, normal color. Absent: rash Course Vital Signs 08/11/20 08/11/20 08/11/20 14:47 15:15 15:16 Temperature 98.6 F Pulse Rate 58 L 75 Respiratory 18 20 20 Rate Blood Pressure 106/59 114/79 O2 Sat by Pulse 96 97 Oximetry - Reevaluation(s) Reevaluation #1: 08/11/20 16:04 Medical records reviewed Reevaluation #2: 08/11/20 16:04 Patient with no significant improvement here in the ER still short (for palpitations Reevaluation #3: 08/11/20 16:05 On further interrogation patient does admit having low white blood cell count as of late with no formal diagnosis - Consultations Consultation #1: Spoke with Dr. Cortes agrees to admit this patient Medical Decision Making - Medical Decision Making 75 male DF for evaluation, patient's found of significant neutropenia here in the ER, no source of infection or fever. Patient does have atrial fibrillation with multiple PVCs new onset CHF, patient will benefit diaphoresis and cardiology to see - Lab Data Result diagrams: 08/11/20 15:02 08/11/20 15:02 Lab Results 08/11/20 08/11/20 08/11/20 Range/Units 15:02 15:02 15:02 WBC 0.9 L* (3.8-10.6) k/uL RBC 3.17 L (4.30-5.90) m/uL Hgb 10.2 L (13.0-17.5) gm/dL Hct 29.3 L (39.0-53.0) % MCV 92.4 (80.0-100.0) fL MCH 32.2 (25.0-35.0) pg MCHC 34.9 (31.0-37.0) g/dL RDW 16.9 H (11.5-15.5) % Plt Count 130 L (150-450) k/uL Neutrophils # CREDIT ASSISTANT RBC Morphology Anisocytosis Slight PT 21.2 H (9.0-12.0) sec INR 2.2 H (<1.2) APTT 32.0 H (22.0-30.0) sec Sodium 140 (137-145) mmol/L Potassium 4.4 (3.5-5.1) mmol/L Chloride 107 (98-107) mmol/L Carbon Dioxide 23 (22-30) mmol/L Anion Gap 10 mmol/L BUN 19 (9-20) mg/dL Creatinine 1.01 (0.66-1.25) mg/dL Est GFR (CKD-EPI)AfAm 85 (>60 ml/min/1.73 sqM) Est GFR (CKD-EPI)NonAf 73 (>60 ml/min/1.73 sqM) Glucose 157 H (74-99) mg/dL Plasma Lactic Acid John Paul (0.7-2.0) mmol/L Calcium 9.3 (8.4-10.2) mg/dL Magnesium 1.7 (1.6-2.3) mg/dL Total Bilirubin 0.6 (0.2-1.3) mg/dL AST 29 (17-59) U/L ALT 22 (4-49) U/L Alkaline Phosphatase 67 (38-126) U/L Creatine Kinase 228 H (55-170) U/L Troponin I (0.000-0.034) ng/mL NT-Pro-B Natriuret Pep pg/mL Total Protein 6.8 (6.3-8.2) g/dL Albumin 4.2 (3.5-5.0) g/dL 08/11/20 08/11/20 08/11/20 Range/Units 15:02 15:02 15:02 WBC (3.8-10.6) k/uL RBC (4.30-5.90) m/uL Hgb (13.0-17.5) gm/dL Hct (39.0-53.0) % MCV (80.0-100.0) fL MCH (25.0-35.0) pg MCHC (31.0-37.0) g/dL RDW (11.5-15.5) % Plt Count (150-450) k/uL Neutrophils # RBC Morphology Anisocytosis PT (9.0-12.0) sec INR (<1.2) APTT (22.0-30.0) sec Sodium (137-145) mmol/L Potassium (3.5-5.1) mmol/L Chloride (98-107) mmol/L Carbon Dioxide (22-30) mmol/L Anion Gap mmol/L BUN (9-20) mg/dL Creatinine (0.66-1.25) mg/dL Est GFR (CKD-EPI)AfAm (>60 ml/min/1.73 sqM) Est GFR (CKD-EPI)NonAf (>60 ml/min/1.73 sqM) Glucose (74-99) mg/dL Plasma Lactic Acid John Paul 2.8 H* (0.7-2.0) mmol/L Calcium (8.4-10.2) mg/dL Magnesium (1.6-2.3) mg/dL Total Bilirubin (0.2-1.3) mg/dL AST (17-59) U/L ALT (4-49) U/L Alkaline Phosphatase (38-126) U/L Creatine Kinase (55-170) U/L Troponin I <0.012 (0.000-0.034) ng/mL NT-Pro-B Natriuret Pep 831 pg/mL Total Protein (6.3-8.2) g/dL Albumin (3.5-5.0) g/dL - EKG Data -: EKG Interpreted by Me (EKG shows sinus rhythm 76 [place] 186 QRS 86 QTc 447) - Radiology Data Radiology results: report reviewed (Chest x-ray shows CHF pulmonary edema), image reviewed Disposition Clinical Impression: Atrial flutter with rapid ventricular response, PVC (premature ventricular contraction), Acute pulmonary edema, Neutropenia Disposition: ADMITTED IP TO THIS HOSP Condition: Fair Is patient prescribed a controlled substance at d/c from ED?: No Referrals: Misael Oro DO [Primary Care Provider] - 1-2 days
[2020-08-11 15:27] LABS: Anisocytosis Slight; HCT 29.3 % (39.0-53.0); HGB 10.2 gm/dL (13.0-17.5); MCH 32.2 pg (25.0-35.0); MCHC 34.9 g/dL (31.0-37.0); MCV 92.4 fL (80.0-100.0); Mean Platelet Volume 7.8; Platelet Count 130 k/uL (150-450); RBC 3.17 m/uL (4.30-5.90); RDW 16.9 % (11.5-15.5)
[2020-08-11 15:36] LABS: INR 2.2 (<1.2); Prothrombin Time 21.2 sec (9.0-12.0)
[2020-08-11 15:39] LABS: WBC 0.9 k/uL (3.8-10.6)
[2020-08-11 15:42] LABS: Albumin 4.2 g/dL (3.5-5.0); Calcium 9.3 mg/dL (8.4-10.2); Magnesium 1.7 mg/dL (1.6-2.3); Potassium 4.4 mmol/L (3.5-5.1); Total Bilirubin 0.6 mg/dL (0.2-1.3); Total Protein 6.8 g/dL (6.3-8.2)
--- NOTE | 2020-08-11 15:49 | XR ---
EXAMINATION TYPE: XR chest 2V DATE OF EXAM: 08/11/2020 COMPARISON: 03/17/2020 HISTORY: 75-year-old male shortness of breath, difficulty breathing TECHNIQUE: PA and lateral views FINDINGS: The heart is mildly enlarged. Normal variant azygos fissure. Diffuse interstitial opacity. No arabella c onsolidation. Trace effusion suggested on the lateral view. IMPRESSION: Mild cardiomegaly, diffuse interstitial opacity, and trace pleural effusions. Correlate for mild CHF.
[2020-08-11] MEDS ORDERED: MORPHINE SULFATE 4 MG/ML SYRINGE IVP PRN (16:01)
[2020-08-11] MEDS ORDERED: MORPHINE SULFATE 4 MG/ML SYRINGE IVP STA (16:01)
[2020-08-11] MEDS: FUROSEMIDE 10 MG/ML 4 ML VIAL IV SCH ×2 (16:35→23:27)
[2020-08-11 16:47] LABS: Appearance,Urine Clear (Clear); Bilirubin,Urine Negative (Negative); Blood,Urine Negative (Negative); Color,Urine Yellow; Glucose,Urine (UA) Negative (Negative); Ketones,Urine Negative (Negative); Leukocyte Esterase,Urine Negative (Negative); Nitrite,Urine Negative (Negative); Protein,Urine Trace (Negative); Specific Gravity,Urine 1.026 (1.001-1.035); Urobilinogen,Urine <2.0 mg/dL (<2.0)
[2020-08-11 17:23] LABS: Glucose,Whole Blood 98 mg/dL (75-99)
[2020-08-11] MEDS ORDERED: HYDROcodone/APAP 10-325MG 1 EACH TAB PO PRN (18:32)
[2020-08-11] MEDS ORDERED: NALOXONE 0.4 MG/ML 1 ML VIAL IV PRN (18:34)
[2020-08-11] MEDS ORDERED: MELATONIN 3 MG TABLET PO PRN (18:34)
[2020-08-11] MEDS ORDERED: MAG HYDROX/AL HYDROX/SIMETH 30 ML CUP PO PRN (18:34)
[2020-08-11] MEDS ORDERED: LACTULOSE 20 GM/30 ML CUP PO PRN (18:34)
[2020-08-11] MEDS ORDERED: ACETAMINOPHEN TAB 325 MG TAB PO PRN (18:34)
[2020-08-11] MEDS ORDERED: ONDANSETRON 4 MG/2 ML VIAL IVP PRN (18:34)
[2020-08-11] MEDS ORDERED: CALCIUM CARBONATE 500 MG CHEWABLE PO PRN (18:34)
[2020-08-11] MEDS ORDERED: MAGNESIUM HYDROXIDE 2,400 MG/10 ML CUP PO PRN (18:34)
[2020-08-11] MEDS: metFORMIN 500 MG TAB PO SCH (19:03)
[2020-08-11] MEDS ORDERED: WARFARIN 5 MG TAB PO SCH (20:00)
[2020-08-11 20:10] LABS: Glucose,Whole Blood 129 mg/dL (75-99)
[2020-08-11] MEDS: METOPROLOL TARTRATE 50 MG TAB PO SCH (20:44)
[2020-08-11] MEDS: TAMSULOSIN 0.4 MG CAP.ER.24H PO SCH (20:44)
[2020-08-11] MEDS: ATORVASTATIN 10 MG TAB PO SCH (20:44)
[2020-08-11] MEDS: GABAPENTIN 100 MG CAP PO SCH (20:44)
[2020-08-11] MEDS: DRONEDARONE 400 MG TAB PO SCH (20:45)
--- NOTE | 2020-08-11 20:57 | P.HPIM ---
History of Present Illness H&P Date: 08/11/20 Chief Complaint: Short of breath History of presenting complaint: This is a pleasant [address] Oro. Chronic stable medical conditions include hypertension, hyperlipidemia, or strength redness, obstructive sleep apnea uses a CPAP, diabetes. Last 3-4 days patient became increasingly short of breath. He always uses 2 pillows denies any edema. Has noticed heartburn sometimes. Occasional fluttering of the heart. Has known history of atrial flutter fibrillation. On Coumadin. Also takes multaq at home. Denies any cough. No fever no chills. No chest pain. Review of systems: GEN.: Tired EYES: None HEENT: None NECK: None RESPIRATORY: As above CARDIOVASCULAR: As above GASTROINTESTINAL: None GENITOURINARY: None MUSCULOSKELETAL: Some joint pains LYMPHATICS: None HEMATOLOGICAL: None PSYCHIATRY: None NEUROLOGICAL: None Past medical history to include: Atrial flutter ablation, hypertension, hyperlipidemia, osteoarthritis, obstructive sleep apnea, diabetes, childhood polio TIA, sore assess, prostate disorder Social history: . No history of smoking or alcohol. 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 EYES: Pupils equal. Conjunctiva normal. HEENT: External appearance of nose and ears normal, oral cavity grossly normal. NECK: JVD not raised; masses not palpable. HEART: First and second heart sounds are normal; systolic murmur no edema. LUNGS: Respiratory rate normal; clear to auscultation. ABDOMEN: Soft, nontender, liver spleen not palpable, no masses palpable. PSYCH: Alert and oriented x3; mood and affect normal. NEUROLOGICAL: Cranial nerves grossly intact; no facial asymmetry, power and sensation grossly intact. LYMPHATICS: No lymph nodes palpable in the axilla and neck INVESTIGATIONS, reviewed in the clinical context: White count 0.9 hemoglobin 10.2 platelets 1:30 INR 2.2 potassium 4.4 creatinine 1.01, proBNP 831 Troponin I 2 negative EKG tracing personally reviewed by me-normal sinus rhythm with PVC Chest x-ray film personally reviewed by me-venous prominence 2-D echocardiogram from February 2020-EF 55-60%, moderate concentric LVH, moderate aortic stenosis Assessment: -Possible acute congestive heart failure exacerbation -Moderate aortic stenosis -Persistent atrial flutter fibrillation -PVCs -Essential hypertension -Hyperlipidemia -Diabetes mellitus type 2 on oral hypoglycemic -Obstructive sleep apnea uses CPAP -Primary osteoarthritis -Pancytopenia further workup as outpatient Plan: Home medications to continue. INR to be followed. Consult cardiology. Patient put on IV Lasix. Follow electrolytes. Past Medical History Past Medical History: Atrial Fibrillation, CVA/TIA, Diabetes Mellitus, Hyperlipidemia, Hypertension, Osteoarthritis (OA), Prostate Disorder, Skin Disorder, Sleep Apnea/CPAP/BIPAP Additional Past Medical History / Comment(s): CHILDHOOD POLIO, TIA -no residual effects, psoriasis, has cpap machine, neutropenia History of Any Multi-Drug Resistant Organisms: None Reported Past Surgical History: Cardiac Ablation, Heart Catheterization, Tonsillectomy Additional Past Surgical History / Comment(s): HX OF EPIDURALS FOR PAIN, MARYA CATARACTS, cardioversion x2 Past Anesthesia/Blood Transfusion Reactions: No Reported Reaction Past Psychological History: No Psychological Hx Reported Smoking Status: Never smoker Past Alcohol Use History: None Reported Past Drug Use History: None Reported - Past Family History Father Family Medical History: Cancer Additional Family Medical History / Comment(s): bladder cancer Mother Family Medical History: Myocardial Infarction ([place]) Medications and Allergies Home Medications Medication Instructions Recorded Confirmed Type Alfuzosin HCl [Alfuzosin HCl ER] 10 mg PO BID 01/24/17 08/11/20 History Atorvastatin Calcium [Lipitor] 10 mg PO HS 01/24/17 08/11/20 History Gabapentin [Neurontin] 100 mg PO TID 01/24/17 08/11/20 History metFORMIN HCL [Glucophage] 500 mg PO W/BRKFST 08/31/18 08/11/20 History Metoprolol Tartrate [Lopressor] 100 mg PO BID 01/16/19 08/11/20 History Warfarin [Coumadin] 2.5 mg PO MOWEFR@199901/16/19 08/11/20 History Warfarin [Coumadin] 5 mg PO SUTUTHSA@199901/16/19 08/11/20 History Dronedarone [Multaq] 400 mg PO BID #30 tab 03/18/20 08/11/20 Rx Hydrocodone/Acetaminophen [[place] 1 tab PO QID PRN 08/11/20 08/11/20 History 10-325] Pantoprazole [Protonix] 40 mg PO DAILY 08/11/20 08/11/20 History amLODIPine [Norvasc] 10 mg PO DAILY 08/11/20 08/11/20 History metFORMIN HCL [Glucophage] 1,000 mg PO W/SUPPER 08/11/20 08/11/20 History Allergies Allergy/AdvReac Type Severity Reaction Status Date / Time No Known Allergies Allergy Verified 08/11/20 14:49 Physical Exam Vitals: Vital Signs Temp Pulse Pulse Resp BP BP Pulse Ox 08/11/20 20:00 98.1 F 83 20 130/73 95 08/11/20 17:20 98.8 F 86 22 122/58 97 08/11/20 17:18 98.6 F 77 18 117/62 97 08/11/20 16:37 77 18 117/62 97 08/11/20 16:10 68 08/11/20 16:04 80 08/11/20 15:16 20 08/11/20 15:15 75 20 114/79 97 08/11/20 14:47 98.6 F 58 L 18 106/59 96 Intake and Output 08/11/20 08/11/20 08/11/20 06:59 14:59 22:59 Intake Total 120 Output Total 1700 Balance -1580 Intake: Oral 120 Output: Urine 1700 Other: Voiding Method Urinal Weight 102.058 kg 102.058 kg Results CBC & Chem 7: 08/11/20 15:02 08/11/20 15:02 Labs: Abnormal Lab Results - Last 24 Hours (Table) 08/11/20 08/11/20 08/11/20 Range/Units 15:02 15:02 15:02 WBC 0.9 L* (3.8-10.6) k/uL RBC 3.17 L (4.30-5.90) m/uL Hgb 10.2 L (13.0-17.5) gm/dL Hct 29.3 L (39.0-53.0) % RDW 16.9 H (11.5-15.5) % Plt Count 130 L (150-450) k/uL PT 21.2 H (9.0-12.0) sec INR 2.2 H (<1.2) APTT 32.0 H (22.0-30.0) sec Glucose 157 H (74-99) mg/dL POC Glucose (mg/dL) (75-99) mg/dL Plasma Lactic Acid John Paul (0.7-2.0) mmol/L Creatine Kinase 228 H (55-170) U/L Urine Protein (Negative) 08/11/20 08/11/20 08/11/20 Range/Units 15:02 16:33 17:43 WBC (3.8-10.6) k/uL RBC (4.30-5.90) m/uL Hgb (13.0-17.5) gm/dL Hct (39.0-53.0) % RDW (11.5-15.5) % Plt Count (150-450) k/uL PT (9.0-12.0) sec INR (<1.2) APTT (22.0-30.0) sec Glucose (74-99) mg/dL POC Glucose (mg/dL) (75-99) mg/dL Plasma Lactic Acid John Paul 2.8 H* 2.1 H* (0.7-2.0) mmol/L Creatine Kinase (55-170) U/L Urine Protein Trace H (Negative) 08/11/20 Range/Units 20:06 WBC (3.8-10.6) k/uL RBC (4.30-5.90) m/uL Hgb (13.0-17.5) gm/dL Hct (39.0-53.0) % RDW (11.5-15.5) % Plt Count (150-450) k/uL PT (9.0-12.0) sec INR (<1.2) APTT (22.0-30.0) sec Glucose (74-99) mg/dL POC Glucose (mg/dL) 129 H (75-99) mg/dL Plasma Lactic Acid John Paul (0.7-2.0) mmol/L Creatine Kinase (55-170) U/L Urine Protein (Negative) Thrombosis Risk Factor Assmnt - Choose All That Apply Each Factor Represents 1 point: Heart failure (<1month) Each Risk Factor Represents 2 Points: Age 61-74 years Other congenital or acquired thrombophilia - If yes, enter type in comment: No Thrombosis Risk Factor Assessment Total Risk Factor Score: 3 Thrombosis Risk Factor Assessment Level: Moderate Risk
[2020-08-11 22:45] LABS: Reticulocyte % 3.2 % (0.5-2.0)
[2020-08-12 03:44] LABS: Protein, Total 7.1 g/dL (6.2-8.2)
[2020-08-12 06:06] LABS: Glucose,Whole Blood 141 mg/dL (75-99)
[2020-08-12] MEDS: metFORMIN 500 MG TAB PO SCH ×2 (06:16→17:53)
[2020-08-12 08:45] LABS: Free Kappa Lt Chain Qnt, Serum 2.52 mg/dL (0.33-1.94)
[2020-08-12 08:58] LABS: INR 2.2 (<1.2); Prothrombin Time 21.2 sec (9.0-12.0)
[2020-08-12] MEDS ORDERED: ENOXAPARIN 40 MG/0.4 ML SYRINGE SQ SCH (09:00)
[2020-08-12] MEDS: METOPROLOL TARTRATE 50 MG TAB PO SCH ×2 (09:40→21:20)
[2020-08-12] MEDS: GABAPENTIN 100 MG CAP PO SCH ×3 (09:40→21:20)
[2020-08-12] MEDS: amLODIPine 10 MG TAB PO SCH (09:40)
[2020-08-12] MEDS: PANTOPRAZOLE 40 MG TABLET PO SCH (09:40)
[2020-08-12] MEDS: FUROSEMIDE 10 MG/ML 4 ML VIAL IV SCH ×2 (09:40→17:53)
[2020-08-12] MEDS: DRONEDARONE 400 MG TAB PO SCH (09:40)
[2020-08-12] MEDS: TAMSULOSIN 0.4 MG CAP.ER.24H PO SCH ×2 (09:40→21:20)
[2020-08-12 09:47] LABS: % Iron Saturation 22.94 (15.00-50.00)
[2020-08-12 09:55] LABS: Ferritin 253.9 ng/mL (22.0-322.0)
[2020-08-12 11:19] LABS: Immunoglobulin M 82.7 mg/dL (40.0-280.0)
--- NOTE | 2020-08-12 11:26 | P.CRDCN ---
History of Present Illness Consult date: 08/12/20 History of present illness: CHIEF COMPLAINT: CHF HISTORY OF PRESENT ILLNESS: 75-year-old male with a history of paroxysmal atr ial fibrillation, diabetes mellitus, hypertension, and hyperlipidemia who presented to the emergency room with a chief complaint of shortness of breath. Patient follows in the office with Dr. Mayfield. Patient states he has been experiencing shortness of breath for the last 3-4 days. He reports his shortness of breath is with exertion. He denies shortness of breath while he is at rest. He denies chest pain or pressure. He denies palpitations. DIAGNOSTICS: EKG reveals sinus rhythm with PVCs. Heart rate 76. Chest xray mild cardiomegaly, diffuse interstitial opacity, and trace pleural effusions. Correlate for mild CHF. Laboratory data: WBC 0.9. Hemoglobin 10.2. Platelet count 130. INR 2.2. Sodium 140. Potassium 4.4. BUN 19. Creatinine 1.01. Lactic acid 1.9. Magnesium 1.7. Troponin negative 3. BNP 831 Current home cardiac medications include Coumadin, Lipitor 10 mg daily, Lopressor 100 mg daily, Norvasc 10 mg daily, and Multaq 400mg BID. REVIEW OF SYSTEMS: CONSTITUTIONAL: Denies fever or chills. HEENT: Denies blurred vision, vision changes, or eye pain. Denies hemoptysis CARDIOVASCULAR: Denies chest pain, orthopnea, PND or palpitations RESPIRATORY: Reports shortness of breath. GASTROINTESTINAL: Denies abdominal pain. Denies nausea or vomiting. HEMATOLOGIC: Denies bleeding disorders. GENITOURINARY: Denies any blood in urine. SKIN: Denies pruitis. Denies rash. PHYSICAL EXAM: VITAL SIGNS: Reviewed. GENERAL: Well-developed in no acute distress. HEENT: Head is normocephalic. Pupils are equal, round. Sclerae anicteric. Mucous membranes of the mouth are moist. Neck supple. No JVD or thyromegaly LUNGS: Respirations even and unlabored. Lungs essentially clear to auscultation bilaterally. HEART: Regular rate and rhythm. S1 and S2 heard. ABDOMEN: Soft. Nondistended. Nontender. EXTREMITIES: Normal range of motion. No clubbing or cyanosis. Peripheral pulses intact. No lower extremity edema NEUROLOGIC: Awake and alert. Oriented x 3. ASSESSMENT: Possible acute diastolic heart failure, EF 55-60% Moderate aortic stenosis Paroxysmal atrial fibrillation, on long-term anticoagulation with Coumadin History of cardioversion, 2018 Neutropenia Hypertension Hyperlipidemia Diabetes mellitus, type II PLAN: Continue IV lasix Monitor kidney function Daily weights Accurate I&O Repeat 2D echo to assess cardiac structure and function Hold Maltaq at this time per Dr. Mayfield Oncology consulted secondary to neutropenia. Await recommendations Nurse practitioner note has been reviewed by physician. Signing provider agrees with the documented findings, assessment, and plan of care. Past Medical History Past Medical History: Atrial Fibrillation, CVA/TIA, Diabetes Mellitus, Hyperlipidemia, Hypertension, Osteoarthritis (OA), Prostate Disorder, Skin Disorder, Sleep Apnea/CPAP/BIPAP Additional Past Medical History / Comment(s): CHILDHOOD POLIO, TIA -no residual effects, psoriasis, has cpap machine, neutropenia History of Any Multi-Drug Resistant Organisms: None Reported Past Surgical History: Cardiac Ablation, Heart Catheterization, Tonsillectomy Additional Past Surgical History / Comment(s): HX OF EPIDURALS FOR PAIN, MARYA CATARACTS, cardioversion x2 Past Anesthesia/Blood Transfusion Reactions: No Reported Reaction Past Psychological History: No Psychological Hx Reported Smoking Status: Never smoker Past Alcohol Use History: None Reported Past Drug Use History: None Reported - Past Family History Father Family Medical History: Cancer Additional Family Medical History / Comment(s): bladder cancer Mother Family Medical History: Myocardial Infarction ([place]) Medications and Allergies Home Medications Medication Instructions Recorded Confirmed Type Alfuzosin HCl [Alfuzosin HCl ER] 10 mg PO BID 01/24/17 08/11/20 History Atorvastatin Calcium [Lipitor] 10 mg PO HS 01/24/17 08/11/20 History Gabapentin [Neurontin] 100 mg PO TID 01/24/17 08/11/20 History metFORMIN HCL [Glucophage] 500 mg PO W/BRKFST 08/31/18 08/11/20 History Metoprolol Tartrate [Lopressor] 100 mg PO BID 01/16/19 08/11/20 History Warfarin [Coumadin] 2.5 mg PO MOWEFR@199901/16/19 08/11/20 History Warfarin [Coumadin] 5 mg PO SUTUTHSA@199901/16/19 08/11/20 History Dronedarone [Multaq] 400 mg PO BID #30 tab 03/18/20 08/11/20 Rx Hydrocodone/Acetaminophen [[place] 1 tab PO QID PRN 08/11/20 08/11/20 History 10-325] Pantoprazole [Protonix] 40 mg PO DAILY 08/11/20 08/11/20 History amLODIPine [Norvasc] 10 mg PO DAILY 08/11/20 08/11/20 History metFORMIN HCL [Glucophage] 1,000 mg PO W/SUPPER 08/11/20 08/11/20 History Allergies Allergy/AdvReac Type Severity Reaction Status Date / Time No Known Allergies Allergy Verified 08/11/20 14:49 Physical Exam Vitals: Vital Signs Temp Pulse Pulse Resp BP BP Pulse Ox 08/12/20 04:00 98.1 F 82 18 128/62 97 08/12/20 03:49 83 20 08/11/20 23:39 97.8 F 67 18 111/61 99 08/11/20 20:00 98.1 F 83 20 130/73 95 08/11/20 17:20 98.8 F 86 22 122/58 97 08/11/20 17:18 98.6 F 77 18 117/62 97 08/11/20 16:37 77 18 117/62 97 08/11/20 16:10 68 08/11/20 16:04 80 08/11/20 15:16 20 08/11/20 15:15 75 20 114/79 97 08/11/20 14:47 98.6 F 58 L 18 106/59 96 Intake and Output 08/11/20 08/12/20 08/12/20 22:59 06:59 14:59 Intake Total 120 118 Output Total 1700 900 Balance -1580 -900 118 Intake: Oral 120 118 Output: Urine 1700 900 Other: Voiding Method Urinal # Voids 1 Weight 102.058 kg 101.3 kg Results 08/11/20 15:02 08/11/20 15:02 Cardiac Enzymes 08/11/20 08/11/20 08/11/20 Range/Units 15:02 15:02 17:43 AST 29 (17-59) U/L Lactate Dehydrogenase (313-618) U/L Troponin I <0.012 <0.012 (0.000-0.034) ng/mL 08/11/20 08/11/20 Range/Units 20:54 20:54 AST (17-59) U/L Lactate Dehydrogenase 582 (313-618) U/L Troponin I <0.012 (0.000-0.034) ng/mL Coagulation 08/11/20 08/11/20 08/12/20 Range/Units 15:02 20:54 07:59 PT 21.2 H 21.2 H (9.0-12.0) sec APTT 32.0 H 32.0 H (22.0-30.0) sec CBC 08/11/20 Range/Units 15:02 WBC 0.9 L* (3.8-10.6) k/uL RBC 3.17 L (4.30-5.90) m/uL Hgb 10.2 L (13.0-17.5) gm/dL Hct 29.3 L (39.0-53.0) % Plt Count 130 L (150-450) k/uL Comprehensive Metabolic Panel 08/11/20 Range/Units 15:02 Sodium 140 (137-145) mmol/L Potassium 4.4 (3.5-5.1) mmol/L Chloride 107 (98-107) mmol/L Carbon Dioxide 23 (22-30) mmol/L BUN 19 (9-20) mg/dL Creatinine 1.01 (0.66-1.25) mg/dL Glucose 157 H (74-99) mg/dL Calcium 9.3 (8.4-10.2) mg/dL AST 29 (17-59) U/L ALT 22 (4-49) U/L Alkaline Phosphatase 67 (38-126) U/L Total Protein 6.8 (6.3-8.2) g/dL Albumin 4.2 (3.5-5.0) g/dL Current Medications Generic Name Dose Route Start Last Admin Trade Name Freq PRN Reason Stop Dose Admin Acetaminophen 650 mg 08/11/20 18:34 Acetaminophen Tab 325 Mg Tab PO Q6HR PRN Mild Pain or Fever > 100.5 Hydrocodone Bitart/Acetaminophen 1 each 08/11/20 18:32 Hydrocodone/Apap 10-325mg 1 Each Tab PO QID PRN Pain Al Hydroxide/Mg Hydroxide 15 ml 08/11/20 18:34 Mag Hydrox/Al Hydrox/Simeth 30 Ml Cup PO Q6HR PRN Indigestion Amlodipine Besylate 10 mg 08/12/20 09:00 08/12/20 09:40 Amlodipine 10 Mg Tab PO 10 mg DAILY ANA Administration Atorvastatin Calcium 10 mg 08/11/20 21:00 08/11/20 20:44 Atorvastatin 10 Mg Tab PO 10 mg HS ANA Administration Calcium Carbonate/Glycine 1,000 mg 08/11/20 18:34 Calcium Carbonate 500 Mg Chewable PO Q4HR PRN Dyspepsia Dronedarone 400 mg 08/11/20 21:00 08/12/20 09:40 Dronedarone 400 Mg Tab PO 400 mg BID ANA Administration Furosemide 40 mg 08/11/20 16:30 08/12/20 09:40 Furosemide 10 Mg/Ml 4 Ml Vial IV 40 mg Q8H ANA Administration Gabapentin 100 mg 08/11/20 22:00 08/12/20 09:40 Gabapentin 100 Mg Cap PO 100 mg TID ANA Administration Lactulose 20 gm 08/11/20 18:34 Lactulose 20 Gm/30 Ml Cup PO DAILY PRN Constipation Magnesium Hydroxide 2,400 mg 08/11/20 18:34 Magnesium Hydroxide 2,400 Mg/10 Ml Cup PO DAILY PRN Constipation Melatonin 3 mg 08/11/20 18:34 Melatonin 3 Mg Tablet PO HS PRN Insomnia Metformin HCl 500 mg 08/12/20 07:30 08/12/20 06:16 Metformin 500 Mg Tab PO 500 mg W/BRKFST ANA Administration Metformin HCl 1,000 mg 08/11/20 18:45 08/11/20 19:03 Metformin 500 Mg Tab PO 1,000 mg W/SUPPER ANA Administration Metoprolol Tartrate 100 mg 08/11/20 21:00 08/12/20 09:40 Metoprolol Tartrate 50 Mg Tab PO 100 mg BID ANA Administration Miscellaneous Information 0 each 08/11/20 18:56 Warfarin Per Pharmacy MISCELLANE DIRECTED PRN INR Morphine Sulfate 4 mg 08/11/20 16:01 Morphine Sulfate 4 Mg/Ml Syringe IVP Q4HR PRN Pain Naloxone HCl 0.2 mg 08/11/20 18:34 Naloxone 0.4 Mg/Ml 1 Ml Vial IV Q2M PRN Opioid Reversal Ondansetron HCl 4 mg 08/11/20 18:34 Ondansetron 4 Mg/2 Ml Vial IVP Q8HR PRN Nausea And Vomiting Pantoprazole Sodium 40 mg 08/12/20 09:00 08/12/20 09:40 Pantoprazole 40 Mg Tablet PO 40 mg DAILY ANA Administration Tamsulosin HCl 0.4 mg 08/11/20 21:00 08/12/20 09:40 Tamsulosin 0.4 Mg Cap.Er.24h PO 0.4 mg BID ANA Administration Warfarin Sodium 2.5 mg 08/12/20 20:00 Warfarin 2.5 Mg Tab PO MOWEFR@1999 [facility] Protocol Warfarin Sodium 5 mg 08/11/20 20:00 08/11/20 20:44 Warfarin 5 Mg Tab PO 5 mg SUTUTHSA@1999 [facility] Administration Protocol Intake and Output 08/11/20 08/12/20 08/12/20 22:59 06:59 14:59 Intake Total 120 118 Output Total 1700 900 Balance -1580 -900 118 Intake: Oral 120 118 Output: Urine 1700 900 Other: Voiding Method Urinal # Voids 1 Weight 102.058 kg 101.3 kg 08/11/20 15:02 08/11/20 15:02
[2020-08-12 11:36] LABS: Glucose,Whole Blood 137 mg/dL (75-99)
[2020-08-12 11:42] LABS: Folate, Serum 16.6 ng/mL
--- NOTE | 2020-08-12 11:57 | ECHOF ---
Referral Reason:SOB, CHF, re-eval aortic stenosis MEASUREMENTS -------- HEIGHT: 172.7 cm WEIGHT: 101.2 kg BP: 128/62 RVIDd: 3.3 cm (< 3.3) IVSd: 1.3 cm (0.6 - 1.1) LVIDd: 4.4 cm (3.9 - 5.3) LVPWd: 1.3 cm (0.6 - 1.1) IVSs: 1.9 cm LVIDs: 2.9 cm LVPWs: 1.7 cm LA Diam: 3.6 cm (2.7 - 3.8) LAESV Index (A-L): 28.16 ml/m Ao Diam: 3.6 cm (2.0 - 3.7) AV Cusp: 1.4 cm (1.5 - 2.6) MV EXCURSION: 8.330 mm (> 18.000) MV EF SLOPE: 51 mm/s (70 - 150) EPSS: 0.4 cm MV E Terry: 1.55 m/s MV DecT: 330 ms MV A Terry: 1.42 m/s MV E/A Ratio: 1.09 AV maxP.96 mmHg AV meanP.05 mmHg RAP: 5.00 mmHg RVSP: 41.24 mmHg FINDINGS -------- This was a technically adequate study. The left ventricular size is normal. There is mild concentric left ventricular hypertrophy. Overa ll left ventricular systolic function is normal with, an EF between 60 - 65 %. The right ventricle is mildly enlarged. Normal LA size by volume 22+/-6 ml/m2. The right atrium is normal in size. Interatrial and interventricular septum intact. There is mild aortic valve sclerosis. Trace to mild aortic regurgitation. There is mild aortic st enosis present. Peak/mean gradient across the Aortic Valve is 28.96mmHg / 14.05mmHg. The mitral valve leaflets are mildly thickened. Moderate mitral annular calcification present. Mi ld mitral regurgitation is present. The peak and mean MV gradients are 12.48mmHg 4.66mmHg as measu red by doppler. Mild mitral stenosis. Mild tricuspid regurgitation present. There is mild pulmonary hypertension. The right ventricular systolic pressure, as measured by Doppler, is 41.24mmHg. There is no pulmonic regurgitation present. The aortic root size is normal. The inferior vena cava is mildly dilated. There is no pericardial effusion. CONCLUSIONS -------- 1. The left ventricular size is normal. 2. There is mild concentric left ventricular hypertrophy. 3. Overall left ventricular systolic function is normal with, an EF between 60 - 65 %. 4. The right ventricle is mildly enlarged. 5. Interatrial and interventricular septum intact. 6. There is mild aortic valve sclerosis. 7. Trace to mild aortic regurgitation. 8. There is mild aortic stenosis present. 9. Peak/mean gradient across the Aortic Valve is 28.96mmHg / 14.05mmHg. 10. The mitral valve leaflets are mildly thickened. 11. Moderate mitral annular calcification present. 12. Mild mitral regurgitation is present. 13. The peak and mean MV gradients are 12.48mmHg 4.66mmHg as measured by doppler. 14. Mild mitral stenosis. 15. Mild tricuspid regurgitation present. 16. There is mild pulmonary hypertension. 17. The right ventricular systolic pressure, as measured by Doppler, is 41.24mmHg. 18. The inferior vena cava is mildly dilated. 19. There is no pericardial effusion. HOSPITAL RECEPTIONIST: Pretty Matos RDCS
[2020-08-12 15:04] VITALS: BMI 33.9
[2020-08-12 16:12] LABS: Albumin 4.13 g/dL (3.80-4.90)
--- NOTE | 2020-08-12 16:22 | P.PN ---
Progress Note - Text Progress Note Date: 08/12/20 Chief Complaint: Short of breath History of presenting complaint: This is a pleasant [address] Oro. Chronic stable medical conditions include hypertension, hyperlipidemia, or strength redness, obstructive sleep apnea uses a CPAP, diabetes. Last 3-4 days patient became increasingly short of breath. He always uses 2 pillows denies any edema. Has noticed heartburn sometimes. Occasional fluttering of the heart. Has known history of atrial flutter fibrillation. On Coumadin. Also takes multaq at home. Denies any cough. No fever no chills. No chest pain. admitted with-acute congestive heart exacerbation, atrial flutter, . Put on IV Lasix. Today-breathing better. multaq was held by cardiology. No chest pain. Review of systems: Was done for constitutional, cardiovascular, GI, pulmonary. relevant finding as above Active Medications Acetaminophen (Acetaminophen Tab 325 Mg Tab) 650 mg PO Q6HR PRN PRN Reason: Mild Pain or Fever > 100.5 Hydrocodone Bitart/Acetaminophen (Hydrocodone/Apap 10-325mg 1 Each Tab) 1 each PO QID PRN PRN Reason: Pain Al Hydroxide/Mg Hydroxide (Mag Hydrox/Al Hydrox/Simeth 30 Ml Cup) 15 ml PO Q6HR PRN PRN Reason: Indigestion Amlodipine Besylate (Amlodipine 10 Mg Tab) 10 mg PO DAILY [facility] Last Admin: 08/12/20 09:40 Dose: 10 mg Documented by: Atorvastatin Calcium (Atorvastatin 10 Mg Tab) 10 mg PO HS [facility] Last Admin: 08/11/20 20:44 Dose: 10 mg Documented by: Calcium Carbonate/Glycine (Calcium Carbonate 500 Mg Chewable) 1,000 mg PO Q4HR PRN PRN Reason: Dyspepsia Furosemide (Furosemide 10 Mg/Ml 4 Ml Vial) 40 mg IV Q8H [facility] Last Admin: 08/12/20 09:40 Dose: 40 mg Documented by: Gabapentin (Gabapentin 100 Mg Cap) 100 mg PO TID [facility] Last Admin: 08/12/20 09:40 Dose: 100 mg Documented by: Lactulose (Lactulose 20 Gm/30 Ml Cup) 20 gm PO DAILY PRN PRN Reason: Constipation Magnesium Hydroxide (Magnesium Hydroxide 2,400 Mg/10 Ml Cup) 2,400 mg PO DAILY PRN PRN Reason: Constipation Melatonin (Melatonin 3 Mg Tablet) 3 mg PO HS PRN PRN Reason: Insomnia Metformin HCl (Metformin 500 Mg Tab) 500 mg PO W/BRKFST [facility] Last Admin: 08/12/20 06:16 Dose: 500 mg Documented by: Metformin HCl (Metformin 500 Mg Tab) 1,000 mg PO W/SUPPER [facility] Last Admin: 08/11/20 19:03 Dose: 1,000 mg Documented by: Metoprolol Tartrate (Metoprolol Tartrate 50 Mg Tab) 100 mg PO BID [facility] Last Admin: 08/12/20 09:40 Dose: 100 mg Documented by: Miscellaneous Information (Warfarin Per Pharmacy) 0 each MISCELLANE DIRECTED PRN PRN Reason: INR Morphine Sulfate (Morphine Sulfate 4 Mg/Ml Syringe) 4 mg IVP Q4HR PRN PRN Reason: Pain Naloxone HCl (Naloxone 0.4 Mg/Ml 1 Ml Vial) 0.2 mg IV Q2M PRN PRN Reason: Opioid Reversal Ondansetron HCl (Ondansetron 4 Mg/2 Ml Vial) 4 mg IVP Q8HR PRN PRN Reason: Nausea And Vomiting Pantoprazole Sodium (Pantoprazole 40 Mg Tablet) 40 mg PO DAILY [facility] Last Admin: 08/12/20 09:40 Dose: 40 mg Documented by: Tamsulosin HCl (Tamsulosin 0.4 Mg Cap.Er.24h) 0.4 mg PO BID [facility] Last Admin: 08/12/20 09:40 Dose: 0.4 mg Documented by: Warfarin Sodium (Warfarin 2.5 Mg Tab) 2.5 mg PO MOWEFR@1999 [facility]; Protocol Warfarin Sodium (Warfarin 5 Mg Tab) 5 mg PO SUTUTHSA@1999 [facility]; Protocol Last Admin: 08/11/20 20:44 Dose: 5 mg Documented by: consultation: [facility] Physical examination: VITAL SIGNS:96.5, 109, 18, 129/69, 94% on room air GENERAL:laying in bed EYES: Pupils equal. Conjunctiva normal. NECK: JVD not raised; masses not palpable. HEART: irregular heart sounds systolic murmur no edema. LUNGS: Respiratory rate normal; clear to auscultation. ABDOMEN: Soft, nontender, liver spleen not palpable, no masses palpable. PSYCH: Alert and oriented x3; mood and affect normal. INVESTIGATIONS, reviewed in the clinical context: INR 2.2 2-D echocardiogram-EF 60-65% moderate mitral annular calcification Admission testing White count 0.9 hemoglobin 10.2 platelets 1:30 INR 2.2 potassium 4.4 creatinine 1.01, proBNP 831 Troponin I 2 negative EKG tracing personally reviewed by me-normal sinus rhythm with PVC Chest x-ray film personally reviewed by me-venous prominence 2-D echocardiogram from February 2020-EF 55-60%, moderate concentric LVH, moderate aortic stenosis Assessment: - acute congestive heart failure exacerbationfrom diastolic dysfunction EF 55- 60% -Persistent atrial flutter fibrillation -PVCs -Essential hypertension -Hyperlipidemia -Diabetes mellitus type 2 on oral hypoglycemic -Obstructive sleep apnea uses CPAP -Primary osteoarthritis -Pancytopenia Plan: patient remains on IV Lasix. Oncology consulted. Follow electrolytes. Care was discussed with the patient.
[2020-08-12 16:38] LABS: Glucose,Whole Blood 132 mg/dL (75-99)
[2020-08-12 16:51] LABS: Anisocytosis Slight; HCT 32.4 % (39.0-53.0); HGB 10.7 gm/dL (13.0-17.5); MCH 31.4 pg (25.0-35.0); MCHC 32.8 g/dL (31.0-37.0); MCV 95.6 fL (80.0-100.0); Macrocytosis Slight; Mean Platelet Volume 8.5; Platelet Count 126 k/uL (150-450); RBC 3.39 m/uL (4.30-5.90); RDW 17.3 % (11.5-15.5)
[2020-08-12 16:56] LABS: Calcium 9.4 mg/dL (8.4-10.2); Potassium 3.9 mmol/L (3.5-5.1)
[2020-08-12 16:57] LABS: WBC 0.9 k/uL (3.8-10.6)
--- NOTE | 2020-08-12 17:44 | US ---
EXAMINATION TYPE: US abdomen limited DATE OF EXAM: 08/12/2020 COMPARISON: CT 01/13/20 CLINICAL HISTORY: assess spleen. EXAM MEASUREMENTS: Spleen: 12.8 Left Kidney: 11.0 x 6.3 x 5.3 cm 1. Spleen: wnl 2. Left Kidney: No hydronephrosis; Exophytic cyst mid to lower pole 3.6 x 3.2 x 3.5 cm IMPRESSION: Spleen shows no focal defect. No free fluid. Left renal cortical cyst is evident.
[2020-08-12 17:49] LABS: Anisocytosis (M) Present; Polychromasia Present
--- NOTE | 2020-08-12 19:01 | P.CONS ---
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 He has controlled medical history consisting of paroxysmal A fib (he takes warfarin), Hypertension, hyperlipidemia, and Diabetes. Denies alcohol or tobacco use or history of hematological disorders. On admission he is found to have pancytopenia. WBC = 0.9, hemoglobin = 10.7, platelet count 126K. Etiology at this time is unknown. Gruber cultures are pending. Pancytopenia work-up has not resulted with definitive diagnosis. Therefore hematological consult was placed. Patient was seen and evaluated today by Dr. Anderson. Review of Systems All systems: negative (hpi) Past Medical History Past Medical History: Atrial Fibrillation, CVA/TIA, Diabetes Mellitus, Hyperlipidemia, Hypertension, Osteoarthritis (OA), Prostate Disorder, Skin Disorder, Sleep Apnea/CPAP/BIPAP Additional Past Medical History / Comment(s): CHILDHOOD POLIO, TIA -no residual effects, psoriasis, has cpap machine, neutropenia History of Any Multi-Drug Resistant Organisms: None Reported Past Surgical History: Cardiac Ablation, Heart Catheterization, Tonsillectomy Additional Past Surgical History / Comment(s): HX OF EPIDURALS FOR PAIN, MARYA CATARACTS, cardioversion x2 Past Anesthesia/Blood Transfusion Reactions: No Reported Reaction Past Psychological History: No Psychological Hx Reported Smoking Status: Never smoker Past Alcohol Use History: None Reported Past Drug Use History: None Reported - Past Family History Father Family Medical History: Cancer Additional Family Medical History / Comment(s): bladder cancer Mother Family Medical History: Myocardial Infarction (IA) Medications and Allergies Home Medications Medication Instructions Recorded Confirmed Type Alfuzosin HCl [Alfuzosin HCl ER] 10 mg PO BID 01/24/17 08/11/20 History Atorvastatin Calcium [Lipitor] 10 mg PO HS 01/24/17 08/11/20 History Gabapentin [Neurontin] 100 mg PO TID 01/24/17 08/11/20 History metFORMIN HCL [Glucophage] 500 mg PO W/BRKFST 08/31/18 08/11/20 History Metoprolol Tartrate [Lopressor] 100 mg PO BID 01/16/19 08/11/20 History Warfarin [Coumadin] 2.5 mg PO MOWEFR@199901/16/19 08/11/20 History Warfarin [Coumadin] 5 mg PO SUTUTHSA@199901/16/19 08/11/20 History Dronedarone [Multaq] 400 mg PO BID #30 tab 03/18/20 08/11/20 Rx Hydrocodone/Acetaminophen [[place]rett 1 tab PO QID PRN 08/11/20 08/11/20 History 10-325] Pantoprazole [Protonix] 40 mg PO DAILY 08/11/20 08/11/20 History amLODIPine [Norvasc] 10 mg PO DAILY 08/11/20 08/11/20 History metFORMIN HCL [Glucophage] 1,000 mg PO W/SUPPER 08/11/20 08/11/20 History Allergies Allergy/AdvReac Type Severity Reaction Status Date / Time No Known Allergies Allergy Verified 08/11/20 14:49 Physical Exam Vitals: Vital Signs Temp Pulse Pulse Resp BP BP Pulse Ox 08/12/20 12:00 72 141/68 96 08/12/20 08:00 96.5 F L 109 H 129/69 94 L 08/12/20 04:00 98.1 F 82 18 128/62 97 08/12/20 03:49 83 20 08/11/20 23:39 97.8 F 67 18 111/61 99 08/11/20 20:00 98.1 F 83 20 130/73 95 08/11/20 17:20 98.8 F 86 22 122/58 97 08/11/20 17:18 98.6 F 77 18 117/62 97 08/11/20 16:37 77 18 117/62 97 Intake and Output 08/12/20 08/12/20 08/12/20 06:59 14:59 22:59 Intake Total 118 Output Total 900 Balance -900 118 Intake: Oral 118 Output: Urine 900 Other: # Voids 1 Weight 101.3 kg 101.3 kg - Constitutional General appearance: cooperative, mild distress - EENT Eyes: EOMI, PERRLA ENT: hard of hearing, NA/AT, normal oropharynx - Neck Neck: normal ROM - Respiratory Respiratory: bilateral: diminished, rhonchi - Cardiovascular Rhythm: regularly irregular - Gastrointestinal General gastrointestinal: normal bowel sounds, soft, tenderness - Integumentary Integumentary: pale - Neurologic non-focal - Musculoskeletal Musculoskeletal: generalized weakness - Psychiatric Psychiatric: A&O x's 3, appropriate affect, intact judgment & insight Results CBC & Chem 7: 08/12/20 07:59 08/12/20 07:59 Labs: Abnormal Lab Results - Last 24 Hours (Table) 08/11/20 08/11/20 08/11/20 Range/Units 16:33 17:43 20:06 ESR (0-15) mm/hr Retic Count (0.5-2.0) % PT (9.0-12.0) sec INR (<1.2) APTT (22.0-30.0) sec POC Glucose (mg/dL) 129 H (75-99) mg/dL Plasma Lactic Acid John Paul 2.1 H* (0.7-2.0) mmol/L Vitamin B12 (200.0-944.0) pg/mL Urine Protein Trace H (Negative) IgA (60.0-350.0) mg/dL [place] LC, Quant (0.33-1.94) mg/dL 08/11/20 08/11/20 08/11/20 Range/Units 20:54 20:54 20:54 ESR 37 H (0-15) mm/hr Retic Count 3.2 H (0.5-2.0) % PT (9.0-12.0) sec INR (<1.2) APTT 32.0 H (22.0-30.0) sec POC Glucose (mg/dL) (75-99) mg/dL Plasma Lactic Acid John Paul (0.7-2.0) mmol/L Vitamin B12 1065.0 H (200.0-944.0) pg/mL Urine Protein (Negative) IgA (60.0-350.0) mg/dL [place] LC, Quant (0.33-1.94) mg/dL 08/11/20 08/11/20 08/12/20 Range/Units 20:54 20:54 06:05 ESR (0-15) mm/hr Retic Count (0.5-2.0) % PT (9.0-12.0) sec INR (<1.2) APTT (22.0-30.0) sec POC Glucose (mg/dL) 141 H (75-99) mg/dL Plasma Lactic Acid John Paul (0.7-2.0) mmol/L Vitamin B12 (200.0-944.0) pg/mL Urine Protein (Negative) IgA 358.0 H (60.0-350.0) mg/dL [place] LC, Quant 2.52 H (0.33-1.94) mg/dL 08/12/20 08/12/20 Range/Units 07:59 11:34 ESR (0-15) mm/hr Retic Count (0.5-2.0) % PT 21.2 H (9.0-12.0) sec INR 2.2 H (<1.2) APTT (22.0-30.0) sec POC Glucose (mg/dL) 137 H (75-99) mg/dL Plasma Lactic Acid John Paul (0.7-2.0) mmol/L Vitamin B12 (200.0-944.0) pg/mL Urine Protein (Negative) IgA (60.0-350.0) mg/dL [place] LC, Quant (0.33-1.94) mg/dL Comments: Abdominal Ultrasound Chest x-ray: report reviewed Assessment and Plan (1) Pancytopenia Current Visit: Yes Status: Acute Code(s): D61.818 - OTHER PANCYTOPENIA SNOMED Code(s): 625275388 Plan: Assessment and Recommendations: Pancytopenia: New onset Leukopenia: WBC 0.9 with neutrophils = 0 - No blast cells or other significant presentation noted in differential - Review of medication and medical history without clear explaination of neutropenia. - Prior CBC trend are within normal limits for WBC/Neutrophils - Gruber Cultures are Pending Normo/mild macrocytic Anemia: - Nutrition deficits assessed and no identifiable contributing factors - Iron studies stable - Hemolysis work-up negative Mild Thrombocytopenia: New - No hepatosplenomegaly on ultrasound - Unknown etiology Plan: - Full Gruber Culture work-up Recommended - Further Chest imaging maybe useful with new hypoxia and interstitial opacities on chest xray - Likely will need Bone Marrow Biopsy for diagnosis, high risk for infection with immuno-compromised neutropenia, acute - No identifiable monoclonal proteins - Will set up for bone Marrow biopsy prior to discharge - Discussed with Primary team, Dr. Cortes Physician Attest: I have completed the full history and physical and agree with above dictation, dictated as a scribe. Thank you for allowing us to participate in the care of this patient we will follow along with you
[2020-08-12] MEDS ORDERED: WARFARIN 2.5 MG TAB PO SCH (20:00)
[2020-08-12] MEDS ORDERED: WARFARIN 5 MG TAB PO ONE (20:00)
[2020-08-12 20:53] LABS: Glucose,Whole Blood 180 mg/dL (75-99)
[2020-08-12] MEDS: ATORVASTATIN 10 MG TAB PO SCH (21:20)
[2020-08-13] MEDS: FUROSEMIDE 10 MG/ML 4 ML VIAL IV SCH ×2 (00:39→09:19)
[2020-08-13 06:23] LABS: Glucose,Whole Blood 155 mg/dL (75-99)
[2020-08-13] MEDS: metFORMIN 500 MG TAB PO SCH ×2 (06:49→17:34)
[2020-08-13 08:20] LABS: Anisocytosis Slight; HCT 34.4 % (39.0-53.0); HGB 11.6 gm/dL (13.0-17.5); MCH 31.3 pg (25.0-35.0); MCHC 33.6 g/dL (31.0-37.0); Mean Platelet Volume 7.2; Platelet Count 153 k/uL (150-450); Poikilocytosis Slight; RDW 17.1 % (11.5-15.5)
[2020-08-13 08:24] LABS: Prothrombin Time 19.3 sec (9.0-12.0)
[2020-08-13 08:31] LABS: WBC 0.9 k/uL (3.8-10.6)
[2020-08-13 08:33] LABS: Albumin 4.9 g/dL (3.5-5.0); Calcium 9.7 mg/dL (8.4-10.2); Potassium 4.3 mmol/L (3.5-5.1); Total Bilirubin 0.8 mg/dL (0.2-1.3); Total Protein 8.1 g/dL (6.3-8.2)
[2020-08-13] MEDS: amLODIPine 10 MG TAB PO SCH (09:18)
[2020-08-13] MEDS: TAMSULOSIN 0.4 MG CAP.ER.24H PO SCH ×2 (09:18→20:36)
[2020-08-13] MEDS: METOPROLOL TARTRATE 50 MG TAB PO SCH ×2 (09:18→20:45)
[2020-08-13] MEDS: PANTOPRAZOLE 40 MG TABLET PO SCH (09:18)
[2020-08-13] MEDS: GABAPENTIN 100 MG CAP PO SCH ×3 (09:19→20:36)
[2020-08-13 12:28] LABS: Glucose,Whole Blood 141 mg/dL (75-99)
[2020-08-13] MEDS: DRONEDARONE 400 MG TAB PO SCH ×2 (12:54→17:30)
--- NOTE | 2020-08-13 13:47 | CDI ---
Documentation Clarification Form Date: 08/13/2020 CDS: Maryam Deluna RN, CCDS Admit Date: 08/11/2020 Patient Name: Aroldo Samson ATTENTION: The Clinical Documentation Specialists (CDI) and [facility] Coding Staff appreciate your assistance in clarifying documentation. Please respond to the clarification below the line at the bottom and electronically sign. The CDI & [facility] Coding staff will review the response and follow-up if needed. Please note: Queries are made part of the Legal Health Record. If you have any questions, please contact the author of this message via ITS. Dr. Justin Cortes Atrial Flutter is documented in the H&P and subsequent progress notes. Please provide further specificity for the type of atrial flutter if known. 08/12 Cardiology consult: Possible acute diastolic heart failure, EF 55-60 % Paroxysmal atrial fibrillation, on long-term anticoagulation with Coumadin. History/Risk factors: Atrial Fibrillation, Congestive heart failure, Diabetes Mellitus, Hypertension Clinical Indicators:75-year-old male present to ED on 08/11 with complaints of shortness of breath, palpitations. EKG/telemetry: Sinus rhythm with occasional premature ventricular complexes, Nonspecific ST abnormality vent rate 76. 9 Vital signs: 106/59 18 18 98.6 96 % RA 08/13 Labs: PT 19.3, INR 2.0 Treatment: PT/INR Per orders Lopressor 100 mg po bid Lasix 40 mg iv q8 08/11-08/13 change to 40 po bid 08/13 Coumadin 2.5 mg po MOWEFR@ 1999, 5 mg SUTUTHSA@1999 916 ECHO: Overall left ventricular systolic function is normal with, an EF between 60-65 % In your professional opinion, in order to capture the severity of condition; can you please clarify the type of Atrial Flutter if known? Typical/Type I Atypical/Type II Other, please specify Unable to determine (Last Revision: February 2018) unable to determine MTDD
--- NOTE | 2020-08-13 13:55 | P.PN ---
Subjective Progress Note Date: 08/13/20 CHIEF COMPLAINT: CHF HISTORY OF PRESENT ILLNESS: Patient examined and oriented bedside. Patient denies shortness of breath. Denies chest pain. He has been evaluated by hematology/oncology and a bone marrow biopsy was recommended. Vital signs are stable. PHYSICAL EXAM: VITAL SIGNS: Reviewed. GENERAL: Well-developed in no acute distress. HEENT: Head is normocephalic. Pupils are equal, round. Sclerae anicteric. Mucous membranes of the mouth are moist. Neck supple. No JVD or thyromegaly LUNGS: Respirations even and unlabored. Lungs essentially clear to auscultation bilaterally. HEART: Regular rate and rhythm. S1 and S2 heard. ABDOMEN: Soft. Nondistended. Nontender. EXTREMITIES: Normal range of motion. No clubbing or cyanosis. Peripheral pulses intact. No lower extremity edema NEUROLOGIC: Awake and alert. Oriented x 3. ASSESSMENT: Possible acute diastolic heart failure, EF 55-60% Moderate aortic stenosis Paroxysmal atrial fibrillation, on long-term anticoagulation with Coumadin History of cardioversion, 2018 Neutropenia Hypertension Hyperlipidemia Diabetes mellitus, type II PLAN: Transition IV Lasix to oral Resume Maltaq Monitor kidney function Daily weights Accurate I&O Patient to undergo bone marrow biopsy per hematology/oncology Nurse practitioner note has been reviewed by physician. Signing provider agrees with the documented findings, assessment, and plan of care. Objective - Vital Signs Vital signs: Vital Signs Temp 97.1 F L 08/13/20 08:00 Pulse 86 08/13/20 08:00 Resp 18 08/13/20 04:00 BP 119/69 08/13/20 08:00 Pulse Ox 97 08/13/20 08:00 Intake & Output 08/12/20 08/13/20 08/13/20 18:59 06:59 18:59 Intake Total 358 360 Output Total 600 1400 Balance -242 -1400 360 Weight 101.3 kg 95.5 kg Intake: Oral 358 360 Output: Urine 600 1400 Other: Voiding Method Urinal # Voids 2 - Labs CBC & Chem 7: 08/13/20 07:41 08/13/20 07:41 Labs: Abnormal Lab Results - Last 24 Hours (Table) 08/12/20 08/12/20 08/12/20 Range/Units 07:59 07:59 16:36 WBC 0.9 L* (3.8-10.6) k/uL RBC 3.39 L (4.30-5.90) m/uL Hgb 10.7 L (13.0-17.5) gm/dL Hct 32.4 L (39.0-53.0) % RDW 17.3 H (11.5-15.5) % Plt Count 126 L (150-450) k/uL PT (9.0-12.0) sec INR (<1.2) Carbon Dioxide (22-30) mmol/L BUN (9-20) mg/dL Glucose 139 H (74-99) mg/dL POC Glucose (mg/dL) 132 H (75-99) mg/dL 08/12/20 08/13/20 08/13/20 Range/Units 20:51 06:22 07:41 WBC (3.8-10.6) k/uL RBC (4.30-5.90) m/uL Hgb (13.0-17.5) gm/dL Hct (39.0-53.0) % RDW (11.5-15.5) % Plt Count (150-450) k/uL PT 19.3 H (9.0-12.0) sec INR 2.0 H (<1.2) Carbon Dioxide (22-30) mmol/L BUN (9-20) mg/dL Glucose (74-99) mg/dL POC Glucose (mg/dL) 180 H 155 H (75-99) mg/dL 08/13/20 08/13/20 08/13/20 Range/Units 07:41 07:41 12:08 WBC 0.9 L* (3.8-10.6) k/uL RBC 3.70 L (4.30-5.90) m/uL Hgb 11.6 L (13.0-17.5) gm/dL Hct 34.4 L (39.0-53.0) % RDW 17.1 H (11.5-15.5) % Plt Count (150-450) k/uL PT (9.0-12.0) sec INR (<1.2) Carbon Dioxide 32 H (22-30) mmol/L BUN 24 H (9-20) mg/dL Glucose 141 H (74-99) mg/dL POC Glucose (mg/dL) 141 H (75-99) mg/dL Microbiology - Last 24 Hours (Table) 08/11/20 20:54 Blood Culture - Preliminary Blood No Growth after 24 hours
[2020-08-13] MEDS ORDERED: PHYTONADIONE 2 MG in SODIUM CHLORIDE 0.9% 50 ML IVPB STA (14:19)
--- NOTE | 2020-08-13 14:50 | P.PN ---
Subjective Progress Note Date: 08/13/20 Patient continues to have shortness of breath on exertion though this is somewhat improved, while at rest. No fever/chills/nausea/vomiting/leg swelling. No unusual bleeding. Objective - Vital Signs Vital signs: Vital Signs Temp 97.1 F L 08/13/20 08:00 Pulse 86 08/13/20 08:00 Resp 18 08/13/20 04:00 BP 119/69 08/13/20 08:00 Pulse Ox 97 08/13/20 08:00 Intake & Output 08/12/20 08/13/20 08/13/20 18:59 06:59 18:59 Intake Total 358 360 Output Total 600 1400 Balance -242 -1400 360 Weight 101.3 kg 95.5 kg Intake: Oral 358 360 Output: Urine 600 1400 Other: Voiding Method Urinal # Voids 2 - Constitutional General appearance: Present: no acute distress - EENT Eyes: Present: EOMI ENT: Present: hearing grossly normal, normal oropharynx - Respiratory Respiratory: bilateral: rales - Cardiovascular Rhythm: irregularly irregular Heart sounds: normal: S1, S2 - Gastrointestinal General gastrointestinal: Present: normal bowel sounds, soft - Integumentary Integumentary: Present: normal - Neurologic Neurologic: Present: CNII-XII intact - Musculoskeletal Musculoskeletal: Present: generalized weakness - Psychiatric Psychiatric: Present: A&O x's 3, appropriate affect - Labs CBC & Chem 7: 08/13/20 07:41 08/13/20 07:41 Labs: Abnormal Lab Results - Last 24 Hours (Table) 08/12/20 08/12/20 08/12/20 Range/Units 07:59 07:59 16:36 WBC 0.9 L* (3.8-10.6) k/uL RBC 3.39 L (4.30-5.90) m/uL Hgb 10.7 L (13.0-17.5) gm/dL Hct 32.4 L (39.0-53.0) % RDW 17.3 H (11.5-15.5) % Plt Count 126 L (150-450) k/uL PT (9.0-12.0) sec INR (<1.2) Carbon Dioxide (22-30) mmol/L BUN (9-20) mg/dL Glucose 139 H (74-99) mg/dL POC Glucose (mg/dL) 132 H (75-99) mg/dL 08/12/20 08/13/20 08/13/20 Range/Units 20:51 06:22 07:41 WBC (3.8-10.6) k/uL RBC (4.30-5.90) m/uL Hgb (13.0-17.5) gm/dL Hct (39.0-53.0) % RDW (11.5-15.5) % Plt Count (150-450) k/uL PT 19.3 H (9.0-12.0) sec INR 2.0 H (<1.2) Carbon Dioxide (22-30) mmol/L BUN (9-20) mg/dL Glucose (74-99) mg/dL POC Glucose (mg/dL) 180 H 155 H (75-99) mg/dL 08/13/20 08/13/20 08/13/20 Range/Units 07:41 07:41 12:08 WBC 0.9 L* (3.8-10.6) k/uL RBC 3.70 L (4.30-5.90) m/uL Hgb 11.6 L (13.0-17.5) gm/dL Hct 34.4 L (39.0-53.0) % RDW 17.1 H (11.5-15.5) % Plt Count (150-450) k/uL PT (9.0-12.0) sec INR (<1.2) Carbon Dioxide 32 H (22-30) mmol/L BUN 24 H (9-20) mg/dL Glucose 141 H (74-99) mg/dL POC Glucose (mg/dL) 141 H (75-99) mg/dL Microbiology - Last 24 Hours (Table) 08/11/20 20:54 Blood Culture - Preliminary Blood No Growth after 24 hours Assessment and Plan (1) Neutropenia Narrative/Plan: Lab work up is negative so far. This was discussed with the patient. At this time, Possibilities include primary bone marrow dysfunction versus peripheral destruction. Additional workup, a bone marrow aspiration and biopsy would be recommended. The procedure was discussed in detail with the patient. He is willing to proceed. We will try to schedule the procedure for 08/14/20. In that situation Coumadin will be held and he will be given vitamin K to reverse his INR. This will discuss with cardiology were in agreement. There is also a concern from cardiology about Multaq as a possible etiology. However, review of literature does not indicate any relationship of this medication with neutropenia. Current Visit: Yes Status: Acute Code(s): D70.9 - NEUTROPENIA, UNSPECIFIED SNOMED Code(s): 296602418 (2) Pancytopenia Narrative/Plan: Neutropenia persists, with plan as above. Hemoglobin and platelets are actually improved today. Current Visit: Yes Status: Acute Code(s): D61.818 - OTHER PANCYTOPENIA SNOMED Code(s): 790152318 (3) Acute pulmonary edema Narrative/Plan: At this point there does not appear to be any direct relationship to his blood issues. His neutropenia should not cause lung infiltrates or shortness of breath, unless the patient has infection due to neutropenia. Similarly, his presentation would not be expected to be related to his other mild cytopenias. Discussed with cardiology. Current Visit: Yes Status: Acute Code(s): J81.0 - ACUTE PULMONARY EDEMA SNOMED Code(s): 74659956
[2020-08-13 17:02] LABS: Glucose,Whole Blood 176 mg/dL (75-99)
[2020-08-13] MEDS: FUROSEMIDE 40 MG TAB PO SCH (17:34)
[2020-08-13] MEDS ORDERED: WARFARIN 0.5 MG TAB PO ONE (18:00)
--- NOTE | 2020-08-13 18:07 | P.PN ---
Progress Note - Text Progress Note Date: 08/13/20 Chief Complaint: Short of breath History of presenting complaint: This is a pleasant 75[address] of [address] Oro. Chronic stable medical conditions include hypertension, hyperlipidemia, or strength redness, obstructive sleep apnea uses a CPAP, diabetes. Last 3-4 days patient became increasingly short of breath. He always uses 2 pillows denies any edema. Has noticed heartburn sometimes. Occasional fluttering of the heart. Has known history of atrial flutter fibrillation. On Coumadin. Also takes multaq at home. Denies any cough. No fever no chills. No chest pain. admitted with-acute congestive heart exacerbation, atrial flutter, . Put on IV Lasix.multaq was held by cardiology. Also being worked up for pancytopenia. Today-Breathing much improved. Up and about. Consultation: Dr. waller from oncology Dr. Mckenna Mayfield from cardiology Review of systems: Was done for constitutional, cardiovascular, GI, pulmonary. relevant finding as above Active Medications Acetaminophen (Acetaminophen Tab 325 Mg Tab) 650 mg PO Q6HR PRN PRN Reason: Mild Pain or Fever > 100.5 Hydrocodone Bitart/Acetaminophen (Hydrocodone/Apap 10-325mg 1 Each Tab) 1 each PO QID PRN PRN Reason: Pain Al Hydroxide/Mg Hydroxide (Mag Hydrox/Al Hydrox/Simeth 30 Ml Cup) 15 ml PO Q6HR PRN PRN Reason: Indigestion Amlodipine Besylate (Amlodipine 10 Mg Tab) 10 mg PO DAILY [facility] Last Admin: 08/13/20 09:18 Dose: 10 mg Documented by: Atorvastatin Calcium (Atorvastatin 10 Mg Tab) 10 mg PO HS [facility] Last Admin: 08/12/20 21:20 Dose: 10 mg Documented by: Calcium Carbonate/Glycine (Calcium Carbonate 500 Mg Chewable) 1,000 mg PO Q4HR PRN PRN Reason: Dyspepsia Dronedarone (Dronedarone 400 Mg Tab) 400 mg PO AC-BID [facility] Last Admin: 08/13/20 17:30 Dose: 400 mg Documented by: Furosemide (Furosemide 40 Mg Tab) 40 mg PO BID@0900,1600 [facility] Last Admin: 08/13/20 17:34 Dose: 40 mg Documented by: Gabapentin (Gabapentin 100 Mg Cap) 100 mg PO TID [facility] Last Admin: 08/13/20 17:34 Dose: 100 mg Documented by: Lactulose (Lactulose 20 Gm/30 Ml Cup) 20 gm PO DAILY PRN PRN Reason: Constipation Magnesium Hydroxide (Magnesium Hydroxide 2,400 Mg/10 Ml Cup) 2,400 mg PO DAILY PRN PRN Reason: Constipation Melatonin (Melatonin 3 Mg Tablet) 3 mg PO HS PRN PRN Reason: Insomnia Metformin HCl (Metformin 500 Mg Tab) 500 mg PO W/BRKFST [facility] Last Admin: 08/13/20 06:49 Dose: 500 mg Documented by: Metformin HCl (Metformin 500 Mg Tab) 1,000 mg PO W/SUPPER [facility] Last Admin: 08/13/20 17:34 Dose: 1,000 mg Documented by: Metoprolol Tartrate (Metoprolol Tartrate 50 Mg Tab) 100 mg PO BID [facility] Last Admin: 08/13/20 09:18 Dose: 100 mg Documented by: Miscellaneous Information (Warfarin Per Pharmacy) 0 each MISCELLANE DIRECTED PRN PRN Reason: INR Morphine Sulfate (Morphine Sulfate 4 Mg/Ml Syringe) 4 mg IVP Q4HR PRN PRN Reason: Pain Naloxone HCl (Naloxone 0.4 Mg/Ml 1 Ml Vial) 0.2 mg IV Q2M PRN PRN Reason: Opioid Reversal Ondansetron HCl (Ondansetron 4 Mg/2 Ml Vial) 4 mg IVP Q8HR PRN PRN Reason: Nausea And Vomiting Pantoprazole Sodium (Pantoprazole 40 Mg Tablet) 40 mg PO DAILY [facility] Last Admin: 08/13/20 09:18 Dose: 40 mg Documented by: Tamsulosin HCl (Tamsulosin 0.4 Mg Cap.Er.24h) 0.4 mg PO BID [facility] Last Admin: 08/13/20 09:18 Dose: 0.4 mg Documented by: Physical examination: VITAL SIGNS: 97.1, 85, 16, 119/7 5, 94% room air GENERAL: Sitting up, comfortable EYES: Pupils equal. Conjunctiva normal. NECK: JVD not raised; masses not palpable. HEART: irregular heart sounds systolic murmur no edema. LUNGS: Respiratory rate normal; clear to auscultation. ABDOMEN: Soft, nontender, liver spleen not palpable, no masses palpable. PSYCH: Alert and oriented x3; mood and affect normal. INVESTIGATIONS, reviewed in the clinical context: White count 0.9 hemoglobin 11.6 platelets 153 potassium 4.3 creatinine 1.07 INR 2.0 2-D echocardiogram-EF 60-65% moderate mitral annular calcification Admission testing White count 0.9 hemoglobin 10.2 platelets 1:30 INR 2.2 potassium 4.4 creatinine 1.01, proBNP 831 Troponin I 2 negative EKG tracing personally reviewed by me-normal sinus rhythm with PVC Chest x-ray film personally reviewed by me-venous prominence 2-D echocardiogram from February 2020-EF 55-60%, moderate concentric LVH, moderate aortic stenosis Assessment: - acute congestive heart failure exacerbationfrom diastolic dysfunction EF 55-60%-improve -Persistent atrial flutter fibrillation -PVCs -Essential hypertension -Hyperlipidemia -Diabetes mellitus type 2 on oral hypoglycemic -Obstructive sleep apnea uses CPAP -Primary osteoarthritis -Pancytopenia /bicytopenia with severe leukopenia-no improvement Plan: Patient swished over to oral Lasix. Pending bone marrow biopsy tomorrow. Coumadin has been held. Discussed with patient.
[2020-08-13] MEDS: ATORVASTATIN 10 MG TAB PO SCH (20:35)
[2020-08-13 20:40] LABS: Glucose,Whole Blood 114 mg/dL (75-99)
[2020-08-14 05:11] VITALS: RESP 18
[2020-08-14 06:25] LABS: Glucose,Whole Blood 145 mg/dL (75-99)
[2020-08-14] MEDS: DRONEDARONE 400 MG TAB PO SCH ×2 (06:58→18:09)
[2020-08-14] MEDS: metFORMIN 500 MG TAB PO SCH ×2 (07:41→18:09)
[2020-08-14] MEDS: GABAPENTIN 100 MG CAP PO SCH ×2 (08:18→15:30)
[2020-08-14] MEDS: amLODIPine 10 MG TAB PO SCH (08:18)
[2020-08-14] MEDS: PANTOPRAZOLE 40 MG TABLET PO SCH (08:18)
[2020-08-14] MEDS: METOPROLOL TARTRATE 50 MG TAB PO SCH (08:18)
[2020-08-14] MEDS: TAMSULOSIN 0.4 MG CAP.ER.24H PO SCH (08:18)
[2020-08-14] MEDS: FUROSEMIDE 40 MG TAB PO SCH ×2 (08:18→15:30)
[2020-08-14 10:11] LABS: INR 1.4 (<1.2); Prothrombin Time 14.1 sec (9.0-12.0)
[2020-08-14 11:29] LABS: Anisocytosis Slight; Basophils % (A) 1 %; Eosinophils % (A) 2 %; HCT 35.7 % (39.0-53.0); Lymphocytes # (A) 0.4 k/uL (1.0-4.8); Lymphocytes % (A) 42 %; MCH 31.5 pg (25.0-35.0); MCHC 33.7 g/dL (31.0-37.0); MCV 93.4 fL (80.0-100.0); Mean Platelet Volume 7.5; Monocytes % (A) 3 %; Neutrophils # (A) 0.5 k/uL (1.3-7.7); Neutrophils % (A) 49 %; Platelet Count 158 k/uL (150-450); RBC 3.82 m/uL (4.30-5.90)
[2020-08-14 11:53] LABS: Glucose,Whole Blood 176 mg/dL (75-99)
--- NOTE | 2020-08-14 11:56 | P.PN ---
Subjective Progress Note Date: 08/14/20 CHIEF COMPLAINT: CHF HISTORY OF PRESENT ILLNESS: Patient examined this morning at the bedside. Patient denies shortness of breath. Denies chest pain. Patient is scheduled for a bone marrow biopsy today. Patient is in a fib this morning. Heart rate is mildly uncontrolled this morning. PHYSICAL EXAM: VITAL SIGNS: Reviewed. GENERAL: Well-developed in no acute distress. HEENT: Head is normocephalic. Pupils are equal, round. Sclerae anicteric. Mucous membranes of the mouth are moist. Neck supple. No JVD or thyromegaly LUNGS: Respirations even and unlabored. Lungs essentially clear to auscultation bilaterally. HEART: Irregular rate and rhythm. S1 and S2 heard. ABDOMEN: Soft. Nondistended. Nontender. EXTREMITIES: Normal range of motion. No clubbing or cyanosis. Peripheral pulses intact. No lower extremity edema NEUROLOGIC: Awake and alert. Oriented x 3. ASSESSMENT: Possible acute diastolic heart failure, EF 55-60% Moderate aortic stenosis Paroxysmal atrial fibrillation, on long-term anticoagulation with Coumadin History of cardioversion, 2018 Neutropenia Hypertension Hyperlipidemia Diabetes mellitus, type II PLAN: Continue current cardiac medications Monitor kidney function Daily weights Accurate I&O Patient to undergo bone marrow biopsy per hematology/oncology Patient is stable for discharge from a cardiac standpoint Nurse practitioner note has been reviewed by physician. Signing provider agrees with the documented findings, assessment, and plan of care. Objective - Vital Signs Vital signs: Vital Signs Temp 97.8 F 08/14/20 08:05 Pulse 125 H 08/14/20 08:05 Resp 18 08/14/20 08:05 BP 124/66 08/14/20 08:05 Pulse Ox 94 L 08/14/20 08:05 Intake & Output 08/13/20 08/14/20 08/14/20 18:59 06:59 18:59 Intake Total 930 350 Output Total 710 Balance 930 -360 Weight 94.4 kg Intake: Intake, IV Titration 50 Amount Phytonadione 2 mg In 50 Sodium Chloride 0.9% 50 ml @ 100 mls/hr IVPB ONCE STA Rx#:[id number] Oral 930 300 Output: Urine 710 Other: Voiding Method Urinal Urinal # Voids 2 - Labs CBC & Chem 7: 08/14/20 08:57 08/13/20 07:41 Labs: Abnormal Lab Results - Last 24 Hours (Table) 08/13/20 08/13/20 08/13/20 Range/Units 12:08 17:00 20:39 PT (9.0-12.0) sec INR (<1.2) POC Glucose (mg/dL) 141 H 176 H 114 H (75-99) mg/dL 08/14/20 08/14/20 Range/Units 06:23 08:57 PT 14.1 H (9.0-12.0) sec INR 1.4 H (<1.2) POC Glucose (mg/dL) 145 H (75-99) mg/dL Microbiology - Last 24 Hours (Table) 08/11/20 20:54 Blood Culture - Preliminary Blood No Growth after 48 hours
[2020-08-14] MEDS ORDERED: PROPOFOL 10 MG/ML 20 ML VIAL IV ONE (12:55)
[2020-08-14] MEDS ORDERED: LIDOCAINE 1% INJ 10MG/ML (20 ML MDV) ONE (12:55)
[2020-08-14] MEDS ORDERED: SODIUM CHLORIDE 0.9% 500 ML 500 ML IV ONE (12:57)
[2020-08-14 12:58] VITALS: BP 116/74; PULSE 81; TEMP 98.2
--- NOTE | 2020-08-14 13:36 | P.PCN ---
Date of Procedure: 08/14/20 Preoperative Diagnosis: Severe neutropenia, mild pancytopenia Postoperative Diagnosis: Same Procedure(s) Performed: Bone marrow aspiration and biopsy Anesthesia: MAC Surgeon: Boris Anderson Receptionist Secretary #1: Stated None Estimated Blood Loss (ml): 1 Pathology: other Condition: stable Disposition: floor Indications for Procedure: New onset of severe leukopenia with neutropenia, as well as intermittent mild pancytopenia. Negative clinical workup Operative Findings: Adequate samples Description of Procedure: The procedure was explained in detail to the patient on the floor. Informed consent was obtained on the floor. He presented to the outpatient endoscopy suite and was placed in the left lateral decubitus position. The area over both posterior iliac crest was cleaned and prepped with chlorhexidine and sterile draping. IV sedation was then initiated. Local anesthesia was administered with Xylocaine to the right posterior iliac crest. A Jamshidi needle was then inserted and bone marrow aspirate and biopsy obtained. On withdrawal of the needle hemostasis was easily achieved. Blood loss was minimal and recovery from sedation is satisfactory. He appeared to have tolerated the procedure well without any obvious immediate complications.
[2020-08-14 13:55] LABS: Reticulocyte % 3.7 % (0.5-2.0)
[2020-08-14 16:36] LABS: Glucose,Whole Blood 207 mg/dL (75-99)
[2020-08-14] MEDS ORDERED: WARFARIN 5 MG TAB PO ONE (18:00)
--- NOTE | 2020-08-14 22:35 | P.DS ---
Providers Date of admission: 08/11/20 16:02 Expected date of discharge: 08/14/20 Attending physician: Justin Cortes Consults: 08/11/20 16:02 Consult Physician Routine Consulting Provider: Boris Anderson Consult Reason/Comments: neutropenia Do you want consulting provider notified?: Yes Consult Physician Routine Consulting Provider: Jorge Vuong Consult Reason/Comments: chf/frequent PVCs Do you want consulting provider notified?: Yes [facility] Course: Chief Complaint: Short of breath History of presenting complaint: This is a pleasant [address] Oro. Chronic stable medical conditions include hypertension, hyperlipidemia, or strength redness, obstructive sleep apnea uses a CPAP, diabetes. Last 3-4 days patient became increasingly short of breath. He always uses 2 pillows denies any edema. Has noticed heartburn sometimes. Occasional fluttering of the heart. Has known history of atrial flutter fibrillation. On Coumadin. Also takes multaq at home. Denies any cough. No fever no chills. No chest pain. admitted with-acute congestive heart exacerbation, atrial flutter, . Put on IV Lasix. multaq was resumed. Breathing much improved. Pancytopenia could not be explained. Today-doing well. bone marrow biopsy done today. We'll follow with hematology. Heart rate controlled. Consultation: Dr. anderson from oncology Dr. Maia Mayfield from cardiology Physical examination: VITAL SIGNS: 98.2, 81, 18, 116/74, 93% on room air GENERAL: Sitting up, comfortable EYES: Pupils equal. Conjunctiva normal. NECK: JVD not raised; masses not palpable. HEART: irregular heart sounds systolic murmur no edema. LUNGS: Respiratory rate normal; clear to auscultation. ABDOMEN: Soft, nontender, liver spleen not palpable, no masses palpable. PSYCH: Alert and oriented x3; mood and affect normal. INVESTIGATIONS, reviewed in the clinical context: White count 1 hemoglobin 12 INR 1.4 2-D echocardiogram-EF 60-65% moderate mitral annular calcification Admission testing White count 0.9 hemoglobin 10.2 platelets 1:30 INR 2.2 potassium 4.4 creatinine 1.01, proBNP 831 Troponin I 2 negative EKG tracing personally reviewed by me-normal sinus rhythm with PVC Chest x-ray film personally reviewed by me-venous prominence 2-D echocardiogram from (February 2020)-EF 55-60%, moderate concentric LVH, m oderate aortic stenosis Assessment: - acute congestive heart failure exacerbationfrom diastolic dysfunction EF 55-60%-improve -Persistent atrial flutter fibrillation -PVCs -Essential hypertension -Hyperlipidemia -Diabetes mellitus type 2 on oral hypoglycemic -Obstructive sleep apnea uses CPAP -Primary osteoarthritis -Pancytopenia /bicytopenia with severe leukopenia-status post bone marrow biopsy. Disposition: Home Patient Condition at Discharge: Stable Plan - Discharge Summary Discharge Rx Participant: No New Discharge Prescriptions: New Furosemide [Lasix] 40 mg PO BID@0900,1600 #60 tab Potassium Chloride ER [K-Dur 20] 20 meq PO DAILY #30 tab Continue Alfuzosin HCl [Alfuzosin HCl ER] 10 mg PO BID Gabapentin [Neurontin] 100 mg PO TID Atorvastatin Calcium [Lipitor] 10 mg PO HS metFORMIN HCL [Glucophage] 500 mg PO W/BRKFST Warfarin [Coumadin] 2.5 mg PO MOWEFR@1999 Metoprolol Tartrate [Lopressor] 100 mg PO BID Warfarin [Coumadin] 5 mg PO SUTUTHSA@1999 Dronedarone [Multaq] 400 mg PO BID #30 tab metFORMIN HCL [Glucophage] 1,000 mg PO W/SUPPER amLODIPine [Norvasc] 10 mg PO DAILY Pantoprazole [Protonix] 40 mg PO DAILY Hydrocodone/Acetaminophen [[place] 10-325] 1 tab PO QID PRN PRN Reason: Pain Discharge Medication List Alfuzosin HCl [Alfuzosin HCl ER] 10 mg PO BID 01/24/17 [History] Atorvastatin Calcium [Lipitor] 10 mg PO HS 01/24/17 [History] Gabapentin [Neurontin] 100 mg PO TID 01/24/17 [History] metFORMIN HCL [Glucophage] 500 mg PO W/BRKFST 08/31/18 [History] Metoprolol Tartrate [Lopressor] 100 mg PO BID 01/16/19 [History] Warfarin [Coumadin] 2.5 mg PO MOWEFR@199901/16/19 [History] Warfarin [Coumadin] 5 mg PO SUTUTHSA@199901/16/19 [History] Dronedarone [Multaq] 400 mg PO BID #30 tab 03/18/20 [Rx] Hydrocodone/Acetaminophen [[place] 10-325] 1 tab PO QID PRN 08/11/20 [History] Pantoprazole [Protonix] 40 mg PO DAILY 08/11/20 [History] amLODIPine [Norvasc] 10 mg PO DAILY 08/11/20 [History] metFORMIN HCL [Glucophage] 1,000 mg PO W/SUPPER 08/11/20 [History] Furosemide [Lasix] 40 mg PO BID@0900,1600 #60 tab 08/14/20 [Rx] Potassium Chloride ER [K-Dur 20] 20 meq PO DAILY #30 tab 08/14/20 [Rx] Follow up Appointment(s)/Referral(s): Chun Phillips MD [STAFF PHYSICIAN] - 1 Week Boris Anderson MD [STAFF PHYSICIAN] - 08/25/20 3:15 pm Misael Oro DO [Primary Care Provider] - 1-2 days (The office will call with an appointment for you.) Constantino Mayfield MD [Family Provider] - 08/24/20 3:30 pm Ambulatory/Diagnostic Orders: Basic Metabolic Panel [LAB.AMB] Time Frame: 1 Week, Location: None Selected Patient Instructions/Handouts: Bone Marrow Biopsy (DC) Activity/Diet/Wound Care/Special Instructions: bmp - 7 days dc arter bone marrow if ok with oncology Discharge Disposition: HOME SELF-CARE
--- NOTE | 2020-08-16 21:00 | P.PN ---
Subjective Progress Note Date: 08/14/20 Pt's resp status is improved. He is s/p bone marrow asp and bx, which he tolerated well. No f/c/n/v/obvious bleeding Objective - Vital Signs Vital signs: Vital Signs Temp 98.2 F 08/14/20 12:05 Pulse 81 08/14/20 12:05 Resp 18 08/14/20 12:05 BP 116/74 08/14/20 12:05 Pulse Ox 93 L 08/14/20 12:05 - Constitutional General appearance: Present: no acute distress - EENT Eyes: Present: EOMI ENT: Present: hearing grossly normal, normal oropharynx - Respiratory Respiratory: bilateral: CTA - Cardiovascular Rhythm: regular Heart sounds: normal: S1, S2 - Gastrointestinal General gastrointestinal: Present: normal bowel sounds, soft - Integumentary Integumentary: Present: normal - Neurologic Neurologic: Present: CNII-XII intact - Musculoskeletal Musculoskeletal: Present: strength equal bilaterally - Psychiatric Psychiatric: Present: A&O x's 3, appropriate affect - Labs CBC & Chem 7: 08/14/20 08:57 08/13/20 07:41 Labs: Microbiology - Last 24 Hours (Table) 08/11/20 20:54 Blood Culture - Preliminary Blood No Growth after 96 hours Assessment and Plan (1) Neutropenia Narrative/Plan: Lab w/u is essentially unrevealing. Primary bone marrow pathology vs peripheral destruction. Latter is possibly more likely as neutropenia is predominant vs other cytopenias. Bone marrow was performed, which he tolerated well. F/U with Dr Car as outpt per already scheduled appt Pt remains asymptomatic from his neutropenia Status: Acute Code(s): D70.9 - NEUTROPENIA, UNSPECIFIED SNOMED Code(s): 639339627 (2) Pancytopenia Narrative/Plan: Plt count is now normal, and Hgb also improved spontaneously into the 12 range. await bone marrow reports Status: Acute Code(s): D61.818 - OTHER PANCYTOPENIA SNOMED Code(s): 600486660 (3) Acute pulmonary edema Narrative/Plan: Improved. Defer to IM, and cardiology for further management Status: Acute Code(s): J81.0 - ACUTE PULMONARY EDEMA SNOMED Code(s): 31882968
--- NOTE | 2020-08-19 12:18 | CDI ---
Documentation Clarification Form Date: 08/19/20 From: Sugar Huerta Phone: If you have a question about this query, please contact Annita Joel, Poly Operator at [phone] between 8am and 5pm. Admit Date: 08/11/20 Discharge Date: 08/14/20 Patient Name: ISABELLA CASTILLO Visit Number: [id number] ATTENTION: The Clinical Documentation Specialists (CDI) and [facility] Coding Staff appreciate your assistance in clarifying documentation. Please respond to the clarification below the line at the bottom and electronically sign. The CDI & [facility] Coding staff will review the response and follow-up if needed. Please note: Queries are made part of the Legal Health Record. If you have any questions, please contact the author of this message via ITS. Dear Dr. Boris Anderson, The final diagnosis of the pathology report (IN VIEW CHART) states: Acute myeloid leukemia, favor acute promyelocytic leukema. Documentation states: Severe neutropenia, mild pancytopenia Patient history/risk factors: HTN w acute diastolic CHF, aortic stenosis, other persistent atrial fibrillation, atrial flutter, DM, ANIBAL, HLD, psoriasis Clinical Indicators: Severe neutropenia, mild pancytopenia Treatment: Bone marrow aspiration and biospy - awaitng results In your professional opinion, do you agree with the pathology report specifying acute promyelocytic leukemia Yes No Other (please specify) Unable to determine Yes - final pathology confirms APL MTDD
--- NOTE | 2020-09-04 17:43 | P.PN ---
Progress Note - Text Progress Note Date: 09/04/20 Final pathology confirms APL
== END 2020-08-14 19:17 | disposition home or self-care (01) | DRG 291 ==
LOC: EC 14:40 → 3SCARD 16:02
PROVIDERS: ADMIT Hospitalist; ATTEND Hospitalist
PROC: 07DR3ZX Extraction of Iliac Bone Marrow, Percutaneous Approach, Diagnostic (ICD-10-PCS; principal; 2020-08-14 13:00)
DX: I11.0 Hypertensive heart disease with heart failure (principal); I50.31 Acute diastolic (congestive) heart failure; D61.818 Other pancytopenia; I48.92 Unspecified atrial flutter; I48.19 Other persistent atrial fibrillation; C92.40 Acute promyelocytic leukemia, not having achieved remission; E11.9 Type 2 diabetes mellitus without complications; I35.0 Nonrheumatic aortic (valve) stenosis; G47.33 Obstructive sleep apnea (adult) (pediatric); E78.5 Hyperlipidemia, unspecified; I49.3 Ventricular premature depolarization; N42.9 Disorder of prostate, unspecified; L40.9 Psoriasis, unspecified; M19.91 Primary osteoarthritis, unspecified site; Z79.84 Long term (current) use of oral hypoglycemic drugs; Z79.01 Long term (current) use of anticoagulants; Z79.899 Other long term (current) drug therapy; Z86.12 Personal history of poliomyelitis; Z86.73 Personal history of transient ischemic attack (TIA), and cerebral infarction without residual deficits; Z86.79 Personal history of other diseases of the circulatory system; Z90.89 Acquired absence of other organs; Z98.42 Cataract extraction status, left eye; Z98.41 Cataract extraction status, right eye; Z98.890 Other specified postprocedural states; Z80.52 Family history of malignant neoplasm of bladder; Z82.49 Family history of ischemic heart disease and other diseases of the circulatory system
CPT/HCPCS: 36415; 38222; 71046; 76705; 80048; 80053; 81003; 82550; 82607; 82728; 82746; 82784; 83010; 83540; 83550; 83605; 83615; 83735; 83880; 83883; 83921; 84165; 84484; 85025; 85045; 85384; 85610; 85652; 85730; 86038; 86334; 86431; 87040; 93005; 93306; 94640; 96374; 99285

== ENCOUNTER 2020-08-24 13:09 | Inpatient (IN) | payer MEDICARE ==
--- NOTE | 2020-08-24 17:15 | P.HPIM ---
History of Present Illness H&P Date: 08/24/20 Chief Complaint: APL Mr. Samson is a very pleasant male pt of PCP Dr. Oro who was seen in consult at [facility] 08/12/20 when he presented to ER with complaints of SOB/difficulty breathing. He has PMH of paroxysmal A fib, on coumadin, HTN, hyperlipidemia, and DM. Denies alcohol or tobacco use or history of hematological disorders. On admission he is found to have pancytopenia, WBC- 0.9, Hgb- 10.7, plt- 126K. On review, his CBC was noted to begin changing in June 2020. Pancytopenia work-up did not result is a diagnosis, iron studies were normal. 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 Pt has fatigue as his most notable symptom, he had a nose bleed today, denied any other bleeding. He has poor dentition, the last of his teeth were going to be extracted in the next few weeks, this is going to be postponed now. He follows with Dr. Mayfield Nurse Receptionist we will need to follow along with us while patient is in the hospital for induction treatment. ECOG-1 . Pt is male, with no plans for reproduction. He and his are in agreement to begin treatment AARON. No other c/o on a 14 point ROS. Review of Systems 14 point review of systems is negative except as stated in HPI Past Medical History Past Medical History: Atrial Fibrillation, Cancer, CVA/TIA, Diabetes Mellitus, Hyperlipidemia, Hypertension, Osteoarthritis (OA), Prostate Disorder, Skin Disorder, Sleep Apnea/CPAP/BIPAP Additional Past Medical History / Comment(s): CHILDHOOD POLIO, TIA -no residual effects, psoriasis, has cpap machine, neutropenia, APL diagnosed 08/14/20 History of Any Multi-Drug Resistant Organisms: None Reported Past Surgical History: Cardiac Ablation, Heart Catheterization, Tonsillectomy Additional Past Surgical History / Comment(s): HX OF EPIDURALS FOR PAIN, MARYA CATARACTS, cardioversion x2 Past Anesthesia/Blood Transfusion Reactions: No Reported Reaction Past Psychological History: No Psychological Hx Reported Smoking Status: Never smoker Past Alcohol Use History: None Reported Past Drug Use History: None Reported - Past Family History Father Family Medical History: Cancer Additional Family Medical History / Comment(s): bladder cancer Mother Family Medical History: Myocardial Infarction (IN) Medications and Allergies Home Medications Medication Instructions Recorded Confirmed Type Alfuzosin HCl [Alfuzosin HCl ER] 10 mg PO BID 01/24/17 08/11/20 History Atorvastatin Calcium [Lipitor] 10 mg PO HS 01/24/17 08/11/20 History Gabapentin [Neurontin] 100 mg PO TID 01/24/17 08/11/20 History metFORMIN HCL [Glucophage] 500 mg PO W/BRKFST 08/31/18 08/11/20 History Metoprolol Tartrate [Lopressor] 100 mg PO BID 01/16/19 08/11/20 History Warfarin [Coumadin] 2.5 mg PO MOWEFR@199901/16/19 08/11/20 History Warfarin [Coumadin] 5 mg PO SUTUTHSA@199901/16/19 08/11/20 History Dronedarone [Multaq] 400 mg PO BID #30 tab 03/18/20 08/11/20 Rx Hydrocodone/Acetaminophen [[place] 1 tab PO QID PRN 08/11/20 08/11/20 History 10-325] Pantoprazole [Protonix] 40 mg PO DAILY 08/11/20 08/11/20 History amLODIPine [Norvasc] 10 mg PO DAILY 08/11/20 08/11/20 History metFORMIN HCL [Glucophage] 1,000 mg PO W/SUPPER 08/11/20 08/11/20 History Furosemide [Lasix] 40 mg PO BID@0900,1600 #60 tab 08/14/20 Rx Potassium Chloride ER [K-Dur 20] 20 meq PO DAILY #30 tab 08/14/20 Rx Allergies Allergy/AdvReac Type Severity Reaction Status Date / Time No Known Allergies Allergy Verified 08/11/20 14:49 Physical Exam - Constitutional General appearance: cooperative, no acute distress, obese - EENT Eyes: anicteric sclerae, EOMI, poor dentition ENT: hearing grossly normal, normal oropharynx - Neck Neck: no lymphadenopathy - Respiratory Respiratory: bilateral: CTA, diminished - Cardiovascular Rhythm: irregularly irregular Heart sounds: normal: S1, S2 leg Peripheral Edema: bilateral: None - Gastrointestinal General gastrointestinal: normal bowel sounds, soft - Neurologic Neurologic: CNII-XII intact - Musculoskeletal Musculoskeletal: strength equal bilaterally - Psychiatric Psychiatric: A&O x's 3, appropriate affect, intact judgment & insight Thrombosis Risk Factor Assmnt - DVT/VTE Prophylaxis DVT/VTE Prophylaxis: Contraindicated - See note (Coagulopathy risk during induction. 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 His results, including FISH studies were returned in the last 24 hours. He was called in to the office for review of the results and for discussion regarding the initiation of treatment. Patient and his were agreeable to the same and to be admitted today. Patient is being admitted for induction treatment with arsenic trioxide and Atra. Pharmacy contacted, meds are available. Orders sent to the unit as well as Pharmacy. Main concerns for side effects include-differentiation syndrome, coagulopathy and QT prolongation. Differentiation syndrome symptoms include fever, wt gain, dyspnea, acute respiratory distress, interstitial infiltrates on CXR, pleural or pericardial effusion, hypotension, hyperlqukocytosis-unexplained resp distress is the earliest manifestation. IF NOTED IMMEDIATELY: 1) STOP ATRA and Arsenic trioxide. 2) Initiate dexamathasone 10mg IV Q 12 hours until resolution of symptoms, minimum 3 days. 3) Furosemide if clinically indicated. Labs and coags daily. Coumadin to be held for a few days. The risk for coagulopathy decreases after induction. Cardiology has been consulted. Patient had EKG and echo during his last admit, 08/11, 08/12. Continuous telemetry monitoring. Pt is to have 12 lead EKG twice a week while on treatment. CBC, CMP, mag daily. Need to keep magnesium >1.8mg/dl and K+ >4mmol/L. Coags, fibrinogen daily. HOLD coumadin for a few days due to high risk of coagulopathy during induction. Stat uric acid. Last visit was elevated, dose of Elitek ordered, allopurinol ordered to start tomorrow SCDs for DVT prophylaxis Multiple labs were drawn in the office and sent to [facility]. These will NOT cross over to this visit. Current Visit: Yes Status: Acute Priority: High Code(s): C92.40 - ACUTE PROMYELOCYTIC LEUKEMIA, NOT HAVING ACHIEVED REMISSION SNOMED Code(s): 418495147
[2020-08-24] MEDS ORDERED: RASBURICASE 6 MG in SODIUM CHLORIDE 0.9% 46 ML IV ONE (20:00)
[2020-08-24] MEDS: SODIUM CHLORIDE 0.9% 1,000 ML IV SCH (20:11)
[2020-08-24] MEDS ORDERED: Potassium Replacement Protocol 1 EACH MISC MISCELLANE PRN (20:19)
[2020-08-24] MEDS ORDERED: Magnesium Replacement Protocol 1 EACH MISC MISCELLANE PRN (20:20)
[2020-08-24] MEDS: PANTOPRAZOLE 40 MG TABLET PO SCH (20:46)
[2020-08-24] MEDS: DRONEDARONE 400 MG TAB PO SCH (20:46)
[2020-08-24] MEDS: ATORVASTATIN 10 MG TAB PO SCH (20:46)
[2020-08-24] MEDS: GABAPENTIN 100 MG CAP PO SCH (20:47)
[2020-08-24] MEDS: amLODIPine 10 MG TAB PO SCH (20:47)
[2020-08-24] MEDS: POTASSIUM CHLORIDE ER 20 MEQ TAB.ER PO SCH (20:47)
[2020-08-24] MEDS: TAMSULOSIN 0.4 MG CAP.ER.24H PO SCH (20:47)
[2020-08-24] MEDS: METOPROLOL TARTRATE 50 MG TAB PO SCH (20:47)
[2020-08-24] MEDS: metFORMIN 500 MG TAB PO SCH (20:51)
[2020-08-25 06:35] LABS: Anisocytosis Slight; HCT 25.7 % (39.0-53.0); HGB 8.9 gm/dL (13.0-17.5); MCH 32.3 pg (25.0-35.0); MCHC 34.5 g/dL (31.0-37.0); MCV 93.5 fL (80.0-100.0); Mean Platelet Volume 9.2; Poikilocytosis Slight; RBC 2.75 m/uL (4.30-5.90); RDW 16.9 % (11.5-15.5)
[2020-08-25 06:43] LABS: INR 2.1 (<1.2); Partial Thromboplastin Time 31.9 sec (22.0-30.0); Prothrombin Time 20.7 sec (9.0-12.0)
[2020-08-25 06:47] LABS: Platelet Count 67 k/uL (150-450); WBC 0.7 k/uL (3.8-10.6)
[2020-08-25 07:06] LABS: Polychromasia Present
[2020-08-25] MEDS: METOPROLOL TARTRATE 50 MG TAB PO SCH ×2 (08:19→20:34)
[2020-08-25] MEDS: GABAPENTIN 100 MG CAP PO SCH ×3 (08:19→21:51)
[2020-08-25] MEDS: FUROSEMIDE 40 MG TAB PO SCH ×2 (08:19→16:10)
[2020-08-25] MEDS: TAMSULOSIN 0.4 MG CAP.ER.24H PO SCH ×2 (08:19→20:45)
[2020-08-25] MEDS: DRONEDARONE 400 MG TAB PO SCH ×2 (08:19→20:34)
[2020-08-25] MEDS: SODIUM CHLORIDE 0.9% 1,000 ML IV SCH (08:26)
[2020-08-25] MEDS: metFORMIN 500 MG TAB PO SCH ×2 (08:26→18:08)
[2020-08-25] MEDS ORDERED: allopurinoL 300 MG TAB PO SCH (09:00)
[2020-08-25 09:44] LABS: African American GFR (CKD) 76.2 (60.0-200.0); Albumin 4.3 g/dL (3.80-4.90); Albumin/Globulin Ratio 2.39 (1.60-3.17); Anion Gap 8.4 mmol/L (4.00-12.00); BUN/Creat Ratio 20.91 Ratio (12.00-20.00); Calcium 8.8 mg/dL (8.7-10.3); Carbon Dioxide 28.6 mmol/L (21.6-31.8); Globulin 1.8 g/dL (1.6-3.3); Magnesium 1.4 mg/dL (1.5-2.4); Non-African American GFR(CKD) 65.8 (60.0-200.0); Potassium 4.1 mmol/L (3.5-5.5); Total Bilirubin 0.5 mg/dL (0.2-1.2); Total Protein 6.1 g/dL (6.2-8.2); Uric Acid 0.9 mg/dL (3.7-8.7)
--- NOTE | 2020-08-25 10:12 | P.CRDCN ---
History of Present Illness Consult date: 08/25/20 History of present illness: CHIEF COMPLAINT: Risk of coagulopathy HISTORY OF PRESENT ILLNESS: This is a 75-year old male with a past medical history significant for paroxysmal atrial fibrillation, diabetes mellitus, hypertension, hyperlipidemia, and recent diagnosis of APL. Patient follows in the office with Dr. Mayfield. We have been asked to see the patient in consultation for risk of coagulopathy. Patient was recently hospitalized secondary to shortness of breath. He was found to be neutropenic at that time and underwent a bone marrow biopsy which was positive for APL. Patient presents to the hospital for his first round of chemotherapy. Patient denies chest pain. Denies shortness of breath. Patient underwent echocardiogram in July 2020 revealing ejection fraction between 60 and 65%. DIAGNOSTICS: EKG: not available Chest xray: not available Laboratory data: WBC 0.7. Hemoglobin 8.9. Platelet count 67. INR 2.1. Sodium 140. Potassium 4.1. BUN 23. Creatinine 1.1. Magnesium 1.4. Current home cardiac medications include Norvasc 10 mg daily, Coumadin, Lopressor 100 mg twice a day, Lasix 40 mg twice a day, Lipitor 10 mg daily, and Multaq 400mg BID. REVIEW OF SYSTEMS: At the time of my exam: CONSTITUTIONAL: Denies fever or chills. HEENT: Denies blurred vision, vision changes, or eye pain. Denies hemoptysis CARDIOVASCULAR: Denies chest pain, orthopnea, PND or palpitations RESPIRATORY: No shortness of breath. GASTROINTESTINAL: Denies abdominal pain. Denies nausea or vomiting. HEMATOLOGIC: Denies bleeding disorders. GENITOURINARY: Denies any blood in urine. SKIN: Denies pruitis. Denies rash. PHYSICAL EXAM: VITAL SIGNS: Reviewed. GENERAL: Well-developed in no acute distress. HEENT: Head is normocephalic. Pupils are equal, round. Sclerae anicteric. Mucous membranes of the mouth are moist. Neck supple. No JVD or thyromegaly LUNGS: Respirations even and unlabored. Lungs essentially clear to auscultation bilaterally. HEART: Regular rate and rhythm. S1 and S2 heard. Systolic murmur. ABDOMEN: Soft. Nondistended. Nontender. EXTREMITIES: Normal range of motion. No clubbing or cyanosis. Peripheral pulses intact. No lower extremity edema NEUROLOGIC: Awake and alert. Oriented x 3. ASSESSMENT: APL Chronic diastolic heart failure, EF 55-60% Moderate aortic stenosis Paroxysmal atrial fibrillation, on long-term anticoagulation with Coumadin History of cardioversion, 2017 Hypertension Hyperlipidemia Diabetes mellitus, type II Hypomagnesemia PLAN: No need to repeat echocardiogram as this was performed on recent admission Obtain baseline EKG. We will repeat in 3 days to monitor for any EKG changes Continue telemetry monitoring Resume home cardiac medications Replace magnesium Agreeable to hold Coumadin for induction of chemotherapy per oncology recommendations. Will resume when cleared by oncology Further recommendations pending patient course Nurse practitioner note has been reviewed by physician. Signing provider agrees with the documented findings, assessment, and plan of care. Past Medical History Past Medical History: Atrial Fibrillation, Cancer, CVA/TIA, Diabetes Mellitus, Hyperlipidemia, Hypertension, Osteoarthritis (OA), Prostate Disorder, Skin Disorder, Sleep Apnea/CPAP/BIPAP Additional Past Medical History / Comment(s): CHILDHOOD POLIO, TIA -no residual effects, psoriasis, has cpap machine, neutropenia, APL diagnosed 08/14/20 History of Any Multi-Drug Resistant Organisms: None Reported Past Surgical History: Cardiac Ablation, Heart Catheterization, Tonsillectomy Additional Past Surgical History / Comment(s): HX OF EPIDURALS FOR PAIN, MARYA CATARACTS, cardioversion x2 Past Anesthesia/Blood Transfusion Reactions: No Reported Reaction Past Psychological History: No Psychological Hx Reported Smoking Status: Never smoker Past Alcohol Use History: None Reported Past Drug Use History: None Reported - Past Family History Father Family Medical History: Cancer Additional Family Medical History / Comment(s): bladder cancer Mother Family Medical History: Myocardial Infarction ([place]) Medications and Allergies Home Medications Medication Instructions Recorded Confirmed Type Alfuzosin HCl [Alfuzosin HCl ER] 10 mg PO BID 01/24/17 08/24/20 History Atorvastatin Calcium [Lipitor] 10 mg PO HS 01/24/17 08/24/20 History Gabapentin [Neurontin] 100 mg PO TID 01/24/17 08/24/20 History metFORMIN HCL [Glucophage] 500 mg PO W/BRKFST 08/31/18 08/24/20 History Metoprolol Tartrate [Lopressor] 100 mg PO BID 01/16/19 08/24/20 History Warfarin [Coumadin] 2.5 mg PO MOWEFR@199901/16/19 08/24/20 History Warfarin [Coumadin] 5 mg PO SUTUTHSA@199901/16/19 08/24/20 History Dronedarone [Multaq] 400 mg PO BID #30 tab 03/18/20 08/24/20 Rx Hydrocodone/Acetaminophen [[place] 1 tab PO QID PRN 08/11/20 08/24/20 History 10-325] Pantoprazole [Protonix] 40 mg PO HS 08/11/20 08/24/20 History amLODIPine [Norvasc] 10 mg PO HS 08/11/20 08/24/20 History metFORMIN HCL [Glucophage] 1,000 mg PO W/SUPPER 08/11/20 08/24/20 History Furosemide [Lasix] 40 mg PO BID@0900,1600 #60 tab 08/14/20 08/24/20 Rx Potassium Chloride ER [K-Dur 20] 20 meq PO HS 08/24/20 08/24/20 History Allergies Allergy/AdvReac Type Severity Reaction Status Date / Time No Known Allergies Allergy Verified 08/24/20 18:17 Physical Exam Vitals: Vital Signs Temp Pulse Resp BP Pulse Ox 08/25/20 05:00 98.8 F 78 18 101/66 95 08/24/20 20:00 98.2 F 75 18 119/63 95 08/24/20 16:49 98.7 F 91 18 131/71 95 Intake and Output 08/24/20 08/25/20 08/25/20 22:59 06:59 14:59 Intake Total 1011 720 Balance 1011 720 Intake: Intake, IV Titration 171 600 Amount Rasburicase 6 mg In 46 Sodium Chloride 0.9% 46 ml @ 100 mls/hr IV ONCE ONE Rx#:[id number] Sodium Chloride 0.9% 1, 125 600 000 ml @ 75 mls/hr IV . [id number] [facility] Rx#:[id number] Oral 840 120 Other: # Voids 1 1 Weight 98.883 kg Results 08/25/20 06:20 08/25/20 06:20 Cardiac Enzymes 08/25/20 Range/Units 06:20 AST 25 (14-35) U/L Coagulation 08/25/20 Range/Units 06:20 PT 20.7 H (9.0-12.0) sec APTT 31.9 H (22.0-30.0) sec CBC 08/25/20 Range/Units 06:20 WBC 0.7 L* (3.8-10.6) k/uL RBC 2.75 L (4.30-5.90) m/uL Hgb 8.9 L (13.0-17.5) gm/dL Hct 25.7 L (39.0-53.0) % Plt Count 67 L (150-450) k/uL Comprehensive Metabolic Panel 08/25/20 Range/Units 06:20 Sodium 140 (135-145) mmol/L Potassium 4.1 (3.5-5.5) mmol/L Chloride 103 (96-109) mmol/L Carbon Dioxide 28.6 (21.6-31.8) mmol/L BUN 23.0 (9.0-27.0) mg/dL Creatinine 1.1 (0.6-1.5) mg/dL Glucose 158 H (70-110) mg/dL Calcium 8.8 (8.7-10.3) mg/dL AST 25 (14-35) U/L ALT 23 (10-49) U/L Alkaline Phosphatase 69 (41-126) U/L Total Protein 6.1 L (6.2-8.2) g/dL Albumin 4.30 (3.80-4.90) g/dL Current Medications Generic Name Dose Route Start Last Admin Trade Name Freq PRN Reason Stop Dose Admin Hydrocodone Bitart/Acetaminophen 1 each 08/24/20 20:04 Hydrocodone/Apap 10-325mg 1 Each Tab PO QID PRN Pain Amlodipine Besylate 10 mg 08/24/20 21:00 08/24/20 20:47 Amlodipine 10 Mg Tab PO 10 mg HS ANA Administration Atorvastatin Calcium 10 mg 08/24/20 21:00 08/24/20 20:46 Atorvastatin 10 Mg Tab PO 10 mg HS ANA Administration Dronedarone 400 mg 08/24/20 21:00 08/25/20 08:19 Dronedarone 400 Mg Tab PO 400 mg BID ANA Administration Furosemide 40 mg 08/25/20 09:00 08/25/20 08:19 Furosemide 40 Mg Tab PO 40 mg BID@0900,1600 ANA Administration Gabapentin 100 mg 08/24/20 22:00 08/25/20 08:19 Gabapentin 100 Mg Cap PO 100 mg TID ANA Administration Sodium Chloride 1,000 mls @ 75 mls/hr 08/24/20 20:00 08/25/20 08:26 Saline 0.9% IV 75 mls/hr .[id number] ANA Administration Arsenic Trioxide 30 130 mls @ 65 mls/hr 08/25/20 12:00 Mg In Sodium IV 08/29/20 13:59 Chloride 0.9% 100 Ml Q24H ANA Metformin HCl 500 mg 08/25/20 08:00 08/25/20 08:26 Metformin 500 Mg Tab PO 500 mg W/BRKFST ANA Administration Metformin HCl 1,000 mg 08/24/20 20:15 08/24/20 20:51 Metformin 500 Mg Tab PO 1,000 mg W/SUPPER ANA Administration Metoprolol Tartrate 100 mg 08/24/20 21:00 08/25/20 08:19 Metoprolol Tartrate 50 Mg Tab PO 100 mg BID ANA Administration Miscellaneous Information 1 each 08/24/20 20:19 Potassium Replacement Protocol 1 Each Mis MISCELLANE DAILY PRN Per Protocol Protocol Miscellaneous Information 1 each 08/24/20 20:20 Magnesium Replacement Protocol 1 Each Mis MISCELLANE DAILY PRN Per Protocol Protocol Tretinoin 10 Mg 5 each 08/25/20 12:00 Capsule PO DAILY ANA Tretinoin 10 Mg 4 each 08/25/20 21:00 Capsule PO HS ANA Pantoprazole Sodium 40 mg 08/24/20 21:00 08/24/20 20:46 Pantoprazole 40 Mg Tablet PO 40 mg HS ANA Administration Potassium Chloride 20 meq 08/24/20 21:00 08/24/20 20:47 Potassium Chloride Er 20 Meq Tab.Er PO 20 meq HS ANA Administration Tamsulosin HCl 0.4 mg 08/24/20 21:00 08/25/20 08:19 Tamsulosin 0.4 Mg Cap.Er.24h PO 0.4 mg BID ANA Administration Intake and Output 08/24/20 08/25/20 08/25/20 22:59 06:59 14:59 Intake Total 1011 720 Balance 1011 720 Intake: Intake, IV Titration 171 600 Amount Rasburicase 6 mg In 46 Sodium Chloride 0.9% 46 ml @ 100 mls/hr IV ONCE ONE Rx#:[id number] Sodium Chloride 0.9% 1, 125 600 000 ml @ 75 mls/hr IV . [id number] [facility] Rx#:[id number] Oral 840 120 Other: # Voids 1 1 Weight 98.883 kg 08/25/20 06:20 08/25/20 06:20
[2020-08-25] MEDS ORDERED: MAGNESIUM SULFATE-D5W PMX 1 GM in DEXTROSE/WATER 1 100ML.BAG IVPB SCH ×2 (11:00→11:30)
--- NOTE | 2020-08-25 11:07 | P.PN ---
Subjective Progress Note Date: 08/25/20 Principal diagnosis: APL In follow-up today patient is sitting up the bedside, eating his breakfast, he is going to begin treatment today. His only complaint is fatigue at this time. Cardiology has seen the patient, notes have been reviewed Objective - Vital Signs Vital signs: Vital Signs Temp 98.8 F 08/25/20 05:00 Pulse 78 08/25/20 05:00 Resp 18 08/25/20 05:00 BP 101/66 08/25/20 05:00 Pulse Ox 95 08/25/20 05:00 Intake & Output 08/24/20 08/25/20 08/25/20 18:59 06:59 18:59 Intake Total 1731 Output Total 450 Balance 1731 -450 Weight 98.883 kg Intake: Intake, IV Titration 771 Amount Rasburicase 6 mg In 46 Sodium Chloride 0.9% 46 ml @ 100 mls/hr IV ONCE ONE Rx#:[id number] Sodium Chloride 0.9% 1, 725 000 ml @ 75 mls/hr IV . [id number] [facility] Rx#:[id number] Oral 960 Output: Urine 450 Other: # Voids 1 - Constitutional General appearance: Present: cooperative, no acute distress, obese - EENT Eyes: Present: anicteric sclerae, EOMI ENT: Present: hearing grossly normal - Neck Neck: Absent: lymphadenopathy, normal ROM, other, rigidity, stridor, thyromegaly - Respiratory Respiratory: bilateral: CTA - Cardiovascular Rhythm: irregularly irregular Heart sounds: normal: S1, S2 Abnormal Heart Sounds: Absent: systolic murmur, diastolic murmur, rub, S3 Gallop, S4 Gallop, click, other - Peripheral edema leg Peripheral Edema: bilateral: None - Gastrointestinal General gastrointestinal: Present: normal bowel sounds, soft. Absent: absent bowel sounds, decreased bowel sounds, distended, hepatomegaly, hyperactive bowel sounds, organomegaly, rigid, scaphoid, splenomegaly, tenderness, umbilical her axel, ventral hernia - Neurologic Neurologic: Present: CNII-XII intact - Musculoskeletal Musculoskeletal: Present: strength equal bilaterally - Psychiatric Psychiatric: Present: A&O x's 3, appropriate affect, intact judgment & insight - Labs CBC & Chem 7: 08/25/20 06:20 08/25/20 06:20 Labs: Abnormal Lab Results - Last 24 Hours (Table) 08/24/20 08/25/20 08/25/20 Range/Units 17:21 06:20 06:20 WBC 0.7 L* (3.8-10.6) k/uL RBC 2.75 L (4.30-5.90) m/uL Hgb 8.9 L (13.0-17.5) gm/dL Hct 25.7 L (39.0-53.0) % RDW 16.9 H (11.5-15.5) % Plt Count 67 L (150-450) k/uL PT 20.7 H (9.0-12.0) sec INR 2.1 H (<1.2) APTT 31.9 H (22.0-30.0) sec BUN/Creatinine Ratio (12.00-20.00) Ratio Glucose (70-110) mg/dL Uric Acid 9.7 H (3.5-8.5) mg/dL Magnesium (1.5-2.4) mg/dL Total Protein (6.2-8.2) g/dL 08/25/20 Range/Units 06:20 WBC (3.8-10.6) k/uL RBC (4.30-5.90) m/uL Hgb (13.0-17.5) gm/dL Hct (39.0-53.0) % RDW (11.5-15.5) % Plt Count (150-450) k/uL PT (9.0-12.0) sec INR (<1.2) APTT (22.0-30.0) sec BUN/Creatinine Ratio 20.91 H (12.00-20.00) Ratio Glucose 158 H (70-110) mg/dL Uric Acid 0.9 L (3.5-8.5) mg/dL Magnesium 1.4 L (1.5-2.4) mg/dL Total Protein 6.1 L (6.2-8.2) g/dL Assessment and Plan (1) 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 His results, including FISH studies were returned in the last 24 hours. He was called in to the office for review of the results and for discussion regarding the initiation of tr eatment. Patient and his were agreeable to the same and to be admitted today. Patient is admitted for induction treatment with arsenic trioxide and Atra which is starting 08/25/20. Reviewed diagnosis, prognosis and treatment with the patient again today. No questions at this time. Main concerns for side effects of this regimen include-differentiation syndrome, coagulopathy and QT prolongation. Differentiation syndrome symptoms include fever, wt gain, dyspnea, acute respiratory distress, interstitial infiltrates on CXR, pleural or pericardial effusion, hypotension, hyperlqukocytosis-unexplained resp distress is the earliest manifestation. IF NOTED IMMEDIATELY: 1) STOP ATRA and Arsenic trioxide. 2) Initiate dexamathasone 10mg IV Q 12 hours until resolution of symptoms, minimum 3 days. 3) Furosemide if clinically indicated. Labs and coags daily. Coumadin to be held for a few days. The risk for coagulopathy decreases after induction. Cardiology following appreciated Patient had EKG and echo during his last admit, 08/11, 08/12. Continuous telemetry monitoring. Pt is going to have 12 lead EKG twice a week while on treatment. CBC, CMP, mag daily. Need to keep magnesium >1.8mg/dl and K+ >4mmol/L. Magnesium supplemented today. Cont K+ supplement, may add to IVF. Coags, fibrinogen daily. HOLD coumadin for a few days due to high risk of coagulopathy during induction. Stat uric acid was elevated. Elitek given, allopurinol discontinued, elitek was adequate in decreasing uric acid SCDs for DVT prophylaxis Supportive medications ordered for possible side effects. Daily follow-up Current Visit: Yes Status: Acute Priority: High Code(s): C92.40 - ACUTE PROMYELOCYTIC LEUKEMIA, NOT HAVING ACHIEVED REMISSION SNOMED Code(s): 854210536 Plan: Doctor attests: I performed a history and physical examination of this patient, developed impression and plan of care. Discussed with dictator. I agree with dictators note, documented as a scribe.
[2020-08-25 12:05] LABS: Glucose,Whole Blood 174 mg/dL (75-99)
[2020-08-25] MEDS: MAGNESIUM SULFATE-D5W PMX 1 GM in DEXTROSE/WATER 1 100ML.BAG IVPB SCH ×2 (12:18→13:39)
[2020-08-25] MEDS: TRETINOIN 10 MG CAPSULE PO SCH ×2 (13:12→20:46)
[2020-08-25] MEDS ORDERED: TRETINOIN 10 MG CAPSULE PO SCH (14:00)
[2020-08-25] MEDS ORDERED: TRETINOIN 10 MG CAPSULE PO ONE (14:00)
[2020-08-25 17:08] LABS: Glucose,Whole Blood 134 mg/dL (75-99)
[2020-08-25] MEDS: SODIUM CHLORIDE 0.9% IV SCH (18:09)
[2020-08-25] MEDS: ARSENIC TRIOXIDE IV SCH (18:09)
[2020-08-25] MEDS: PANTOPRAZOLE 40 MG TABLET PO SCH (19:33)
[2020-08-25] MEDS: HYDROcodone/APAP 10-325MG 1 EACH TAB PO PRN (19:33)
[2020-08-25 20:11] LABS: Glucose,Whole Blood 225 mg/dL (75-99)
[2020-08-25] MEDS: POTASSIUM CHLORIDE ER 20 MEQ TAB.ER PO SCH (20:34)
[2020-08-25] MEDS: amLODIPine 10 MG TAB PO SCH (20:34)
[2020-08-25] MEDS: ATORVASTATIN 10 MG TAB PO SCH (20:34)
[2020-08-25] MEDS: MAG HYDROX/AL HYDROX/SIMETH 30 ML CUP PO PRN (21:51)
[2020-08-25] MEDS ORDERED: METOPROLOL TARTRATE 5 MG/5 ML VIAL IVP SCH (22:30)
[2020-08-26] MEDS: SODIUM CHLORIDE 0.9% 1,000 ML IV SCH ×2 (01:24→16:24)
[2020-08-26] MEDS: HYDROcodone/APAP 10-325MG 1 EACH TAB PO PRN (03:53)
[2020-08-26] MEDS ORDERED: METOPROLOL TARTRATE 50 MG TAB PO STA (04:10)
[2020-08-26 06:23] LABS: Anisocytosis Slight; HCT 24.3 % (39.0-53.0); HGB 8.3 gm/dL (13.0-17.5); MCH 32.2 pg (25.0-35.0); MCHC 34.2 g/dL (31.0-37.0); Mean Platelet Volume 8.9; Poikilocytosis Slight; RBC 2.59 m/uL (4.30-5.90); RDW 18.1 % (11.5-15.5)
[2020-08-26 06:28] LABS: Platelet Count 63 k/uL (150-450)
[2020-08-26 06:47] LABS: INR 1.5 (<1.2); Partial Thromboplastin Time 26.7 sec (22.0-30.0); Prothrombin Time 14.8 sec (9.0-12.0)
[2020-08-26 07:10] LABS: Glucose,Whole Blood 198 mg/dL (75-99)
[2020-08-26 07:52] LABS: Blast Cells # (M) 0.34 k/uL (0); Lymphocytes # (M) 0.29 k/uL (1.0-4.8); Metamyelocytes # (M) 0.09 k/uL (0); Metamyelocytes % 5 %; Monocytes # (M) 0.22 k/uL (0-1.0); Myelocytes % 6 %; Neutrophils # (M) 0.56 k/uL (1.3-7.7); Neutrophils % (M) 33 %; Nucleated Red Blood Cells 6 /100 WBC (0-0); Promyelocytes % 6 %; Total Cells Counted 100; WBC 1.7 k/uL (3.8-10.6)
[2020-08-26 07:54] LABS: Polychromasia Present
[2020-08-26] MEDS: DRONEDARONE 400 MG TAB PO SCH ×2 (08:33→23:31)
[2020-08-26] MEDS: METOPROLOL TARTRATE 50 MG TAB PO SCH ×2 (08:33→17:20)
[2020-08-26] MEDS: metFORMIN 500 MG TAB PO SCH ×2 (08:33→17:55)
[2020-08-26] MEDS: TAMSULOSIN 0.4 MG CAP.ER.24H PO SCH ×2 (08:33→22:28)
[2020-08-26] MEDS: GABAPENTIN 100 MG CAP PO SCH ×3 (08:33→22:27)
[2020-08-26] MEDS: FUROSEMIDE 40 MG TAB PO SCH (08:33)
[2020-08-26] MEDS: PANTOPRAZOLE 40 MG TABLET PO SCH ×2 (08:33→22:27)
[2020-08-26] MEDS: ALPRAZolam 0.25 MG TAB PO PRN ×2 (08:53→17:20)
[2020-08-26] MEDS: TRETINOIN 10 MG CAPSULE PO SCH ×2 (08:54→22:28)
--- NOTE | 2020-08-26 09:15 | XR ---
EXAMINATION TYPE: XR chest 2V DATE OF EXAM: 08/26/2020 COMPARISON: 08/11/2020 TECHNIQUE: PA and lateral views submitted. HISTORY: Shortness of breath FINDINGS: Heart is enlarged and underlying COPD. Diffuse interstitial pattern seen. Arthropathy of the shoulder s. Hypertrophic and degenerative change of the spine. Atherosclerotic change aorta. IMPRESSION: 1. COPD with interval development of diffuse interstitial pattern. Correlate for CHF versus interstit ial pneumonia or atypical pneumonia.
[2020-08-26] MEDS ORDERED: FUROSEMIDE 10 MG/ML 2 ML VIAL IV STA (11:44)
[2020-08-26 12:04] LABS: Glucose,Whole Blood 194 mg/dL (75-99)
--- NOTE | 2020-08-26 12:45 | P.PN ---
Subjective Progress Note Date: 08/26/20 CHIEF COMPLAINT: Risk of coagulopathy HISTORY OF PRESENT ILLNESS: Patient examined this morning at the bedside. Patient went into afib with RVR overnight. He received IV lopressor. His heart rate this morning remains uncontrolled. He did receive his metoprolol and multaq this morning. BP running on the lower side this morning at 98/48. He reports feeling slightly short of breath. Denies chest pain or pressure. Denies palpitations. Chest x-ray reveals COPD with interval development of diffuse interstitial pattern. Correlate for CHF versus interstitial pneumonia or atypical pneumonia. PHYSICAL EXAM: VITAL SIGNS: Reviewed. GENERAL: Well-developed in no acute distress. HEENT: Head is normocephalic. Pupils are equal, round. Sclerae anicteric. Mucous membranes of the mouth are moist. Neck supple. No JVD or thyromegaly LUNGS: Respirations even and unlabored. Lungs diminished. HEART: Irregular rate and rhythm. S1 and S2 heard. Systolic murmur. ABDOMEN: Soft. Nondistended. Nontender. EXTREMITIES: Normal range of motion. No clubbing or cyanosis. Peripheral pulses intact. Trace lower extremity edema NEUROLOGIC: Awake and alert. Oriented x 3. ASSESSMENT: APL Acute on chronic diastolic heart failure, EF 55-60% Moderate aortic stenosis Paroxysmal atrial fibrillation, on long-term anticoagulation with Coumadin History of cardioversion, 2018 Hypertension Hyperlipidemia Diabetes mellitus, type II Hypomagnesemia PLAN: Continue current cardiac medications Continue telemetry monitoring Obtain BNP Administer lasix 20mg IV x 1 Begin cardizem drip at 5mg/hr. No bolus secondary to marginal blood pressure Patient to be transferred to 3 for cardizem infusion (Okay to be transferred to 3N per Dr. Mayfield as has no available beds) Agreeable to hold Coumadin for induction of chemotherapy per oncology recommendations. Will resume when cleared by oncology Further recommendations pending patient course Nurse practitioner note has been reviewed by physician. Signing provider agrees with the documented findings, assessment, and plan of care. Objective - Vital Signs Vital signs: Vital Signs Temp 98.6 F 08/26/20 11:38 Pulse 115 H 08/26/20 11:38 Resp 20 08/26/20 11:38 BP 98/48 08/26/20 11:38 Pulse Ox 93 L 08/26/20 11:38 Intake & Output 0908/26/20 08/26/20 18:59 06:59 18:59 Intake Total 1605 1620 425 Output Total 2450 950 200 Balance -845 670 225 Weight 99.3 kg Intake: Intake, IV Titration 825 900 225 Amount Magnesium Sulfate-D5w Pmx 300 1 gm In Dextrose/Water 1 100ml.bag @ 100 mls/hr IVPB Q1H ANA Rx#: [id number] Sodium Chloride 0.9% 1, 525 900 225 000 ml @ 75 mls/hr IV . [id number] [facility] Rx#:[id number] Oral 780 720 200 Output: Urine 2450 950 200 Other: Voiding Method Toilet Toilet Toilet Urinal Urinal Urinal # Voids 1 # Bowel Movements 1 - Labs CBC & Chem 7: 08/26/20 05:47 08/26/20 05:47 Labs: Abnormal Lab Results - Last 24 Hours (Table) 08/25/20 08/25/20 08/25/20 Range/Units 12:03 16:50 17:06 WBC (3.8-10.6) k/uL RBC (4.30-5.90) m/uL Hgb (13.0-17.5) gm/dL Hct (39.0-53.0) % RDW (11.5-15.5) % Plt Count (150-450) k/uL Blast Cells % % Neutrophils # (Manual) (1.3-7.7) k/uL Lymphocytes # (Manual) (1.0-4.8) k/uL Metamyelocytes # (Man) (0) k/uL Myelocytes # (Manual) (0) k/uL Promyelocytes # (Man) (0) k/uL Blast Cells # (Man) (0) k/uL Nucleated RBCs (0-0) /100 WBC PT (9.0-12.0) sec INR (<1.2) POC Glucose (mg/dL) 174 H 134 H (75-99) mg/dL Magnesium 2.4 H (1.6-2.3) mg/dL 08/25/20 08/26/20 08/26/20 Range/Units 20:08 05:47 05:47 WBC 1.7 L (3.8-10.6) k/uL RBC 2.59 L (4.30-5.90) m/uL Hgb 8.3 L (13.0-17.5) gm/dL Hct 24.3 L (39.0-53.0) % RDW 18.1 H (11.5-15.5) % Plt Count 63 L (150-450) k/uL Blast Cells % 20 H* % Neutrophils # (Manual) 0.56 L (1.3-7.7) k/uL Lymphocytes # (Manual) 0.29 L (1.0-4.8) k/uL Metamyelocytes # (Man) 0.09 H (0) k/uL Myelocytes # (Manual) 0.10 H (0) k/uL Promyelocytes # (Man) 0.10 H (0) k/uL Blast Cells # (Man) 0.34 H (0) k/uL Nucleated RBCs 6 H (0-0) /100 WBC PT 14.8 H (9.0-12.0) sec INR 1.5 H (<1.2) POC Glucose (mg/dL) 225 H (75-99) mg/dL Magnesium (1.6-2.3) mg/dL 08/26/20 Range/Units 07:08 WBC (3.8-10.6) k/uL RBC (4.30-5.90) m/uL Hgb (13.0-17.5) gm/dL Hct (39.0-53.0) % RDW (11.5-15.5) % Plt Count (150-450) k/uL Blast Cells % % Neutrophils # (Manual) (1.3-7.7) k/uL Lymphocytes # (Manual) (1.0-4.8) k/uL Metamyelocytes # (Man) (0) k/uL Myelocytes # (Manual) (0) k/uL Promyelocytes # (Man) (0) k/uL Blast Cells # (Man) (0) k/uL Nucleated RBCs (0-0) /100 WBC PT (9.0-12.0) sec INR (<1.2) POC Glucose (mg/dL) 198 H (75-99) mg/dL Magnesium (1.6-2.3) mg/dL
[2020-08-26 13:08] LABS: ALT 24 U/L (10-49); AST 29 U/L (14-35); African American GFR (CKD) 62.3 (60.0-200.0); Alkaline Phosphatase 69 U/L (41-126); BUN/Creat Ratio 18.46 Ratio (12.00-20.00); Calcium 8.6 mg/dL (8.7-10.3); Chloride 102 mmol/L (96-109); Glucose 234 mg/dL (70-110); Magnesium 1.8 mg/dL (1.5-2.4); Non-African American GFR(CKD) 53.8 (60.0-200.0); Potassium 4.3 mmol/L (3.5-5.5); Sodium 138 mmol/L (135-145); Total Bilirubin 0.6 mg/dL (0.3-1.2); Uric Acid <0.5 mg/dL (3.7-8.7)
[2020-08-26] MEDS: ARSENIC TRIOXIDE IV SCH (14:52)
[2020-08-26] MEDS: SODIUM CHLORIDE 0.9% IV SCH (14:52)
[2020-08-26] MEDS: DILTIAZEM 125 MG in SODIUM CHLORIDE 0.9% 100 ML IV SCH (16:50)
[2020-08-26 17:04] LABS: Glucose,Whole Blood 226 mg/dL (75-99)
--- NOTE | 2020-08-26 17:10 | P.PN ---
Subjective Progress Note Date: 08/26/20 Principal diagnosis: APL In follow-up today patient is sitting up the chair, he is SOB with minimal activity, he feels chest tightness/palpitations when his HR gets above 130's, no diaphoresis, fever, new productive or dry cough, nausea, swelling, he is tolerating oral intake. Objective - Vital Signs Vital signs: Vital Signs Temp 98.6 F 08/26/20 11:38 Pulse 115 H 08/26/20 11:38 Resp 20 08/26/20 11:38 BP 98/48 08/26/20 11:38 Pulse Ox 93 L 08/26/20 11:38 Intake & Output 08/25/20 08/26/20 08/26/20 18:59 06:59 18:59 Intake Total 1605 1620 675 Output Total 2450 950 250 Balance -845 670 425 Weight 99.3 kg Intake: Intake, IV Titration 825 900 375 Amount Magnesium Sulfate-D5w Pmx 300 1 gm In Dextrose/Water 1 100ml.bag @ 100 mls/hr IVPB Q1H ANA Rx#: [id number] Sodium Chloride 0.9% 1, 525 900 375 000 ml @ 40 mls/hr IV . Q24H ANA Rx#:[id number] Oral 780 720 300 Output: Urine 2450 950 250 Other: Voiding Method Toilet Toilet Toilet Urinal Urinal Urinal # Voids 1 1 # Bowel Movements 1 - Constitutional General appearance: Present: cooperative, mild distress, obese - EENT Eyes: Present: anicteric sclerae, EOMI ENT: Present: hearing grossly normal, normal oropharynx - Respiratory Respiratory: bilateral: CTA - Cardiovascular Details: tachycardia, radial pulse 2+ Rhythm: irregularly irregular Abnormal Heart Sounds: Absent: systolic murmur, diastolic murmur, rub, S3 Gallop, S4 Gallop, click, other - Peripheral edema leg Peripheral Edema: bilateral: None - Gastrointestinal General gastrointestinal: Present: normal bowel sounds, soft - Neurologic Neurologic: Present: CNII-XII intact - Musculoskeletal Musculoskeletal: Present: strength equal bilaterally - Psychiatric Psychiatric: Present: A&O x's 3, appropriate affect, intact judgment & insight - Labs CBC & Chem 7: 08/26/20 05:47 08/26/20 05:47 Labs: Abnormal Lab Results - Last 24 Hours (Table) 08/25/20 08/25/20 08/25/20 Range/Units 16:50 17:06 20:08 WBC (3.8-10.6) k/uL RBC (4.30-5.90) m/uL Hgb (13.0-17.5) gm/dL Hct (39.0-53.0) % RDW (11.5-15.5) % Plt Count (150-450) k/uL Blast Cells % % Neutrophils # (Manual) (1.3-7.7) k/uL Lymphocytes # (Manual) (1.0-4.8) k/uL Metamyelocytes # (Man) (0) k/uL Myelocytes # (Manual) (0) k/uL Promyelocytes # (Man) (0) k/uL Blast Cells # (Man) (0) k/uL Nucleated RBCs (0-0) /100 WBC PT (9.0-12.0) sec INR (<1.2) Anion Gap (4.00-12.00) mmol/L Est GFR (CKD-EPI)NonAf (60.0-200.0) Glucose (70-110) mg/dL POC Glucose (mg/dL) 134 H 225 H (75-99) mg/dL Uric Acid (3.7-8.7) mg/dL Calcium (8.7-10.3) mg/dL Magnesium 2.4 H (1.6-2.3) mg/dL Total Protein (6.2-8.2) g/dL 08/26/20 08/26/20 08/26/20 Range/Units 05:47 05:47 05:47 WBC 1.7 L (3.8-10.6) k/uL RBC 2.59 L (4.30-5.90) m/uL Hgb 8.3 L (13.0-17.5) gm/dL Hct 24.3 L (39.0-53.0) % RDW 18.1 H (11.5-15.5) % Plt Count 63 L (150-450) k/uL Blast Cells % 20 H* % Neutrophils # (Manual) 0.56 L (1.3-7.7) k/uL Lymphocytes # (Manual) 0.29 L (1.0-4.8) k/uL Metamyelocytes # (Man) 0.09 H (0) k/uL Myelocytes # (Manual) 0.10 H (0) k/uL Promyelocytes # (Man) 0.10 H (0) k/uL Blast Cells # (Man) 0.34 H (0) k/uL Nucleated RBCs 6 H (0-0) /100 WBC PT 14.8 H (9.0-12.0) sec INR 1.5 H (<1.2) Anion Gap 14.00 H (4.00-12.00) mmol/L Est GFR (CKD-EPI)NonAf 53.8 L (60.0-200.0) Glucose 234 H (70-110) mg/dL POC Glucose (mg/dL) (75-99) mg/dL Uric Acid <0.5 L (3.7-8.7) mg/dL Calcium 8.6 L (8.7-10.3) mg/dL Magnesium (1.6-2.3) mg/dL Total Protein 6.0 L (6.2-8.2) g/dL 08/26/20 08/26/20 Range/Units 07:08 11:38 WBC (3.8-10.6) k/uL RBC (4.30-5.90) m/uL Hgb (13.0-17.5) gm/dL Hct (39.0-53.0) % RDW (11.5-15.5) % Plt Count (150-450) k/uL Blast Cells % % Neutrophils # (Manual) (1.3-7.7) k/uL Lymphocytes # (Manual) (1.0-4.8) k/uL Metamyelocytes # (Man) (0) k/uL Myelocytes # (Manual) (0) k/uL Promyelocytes # (Man) (0) k/uL Blast Cells # (Man) (0) k/uL Nucleated RBCs (0-0) /100 WBC PT (9.0-12.0) sec INR (<1.2) Anion Gap (4.00-12.00) mmol/L Est GFR (CKD-EPI)NonAf (60.0-200.0) Glucose (70-110) mg/dL POC Glucose (mg/dL) 198 H 194 H (75-99) mg/dL Uric Acid (3.7-8.7) mg/dL Calcium (8.7-10.3) mg/dL Magnesium (1.6-2.3) mg/dL Total Protein (6.2-8.2) g/dL - Imaging and Cardiology Chest x-ray: report reviewed Assessment and Plan (1) 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 Did STAT CXR for SOB, bilateral infiltrates. Resp exam was WNL Discussed case with Cardiology who reviewed CXR, ordered BNP and lasix. We discussed and IVF discontinued. Findings/symptoms felt to be most consistent with CHF. No QT prolongation or torsades on telemetry. Cont treatment without adjustment. Discussed with Nursing and Pharmacy. Cont labs and coags daily. Coumadin to be held for a few days. The risk for coagulopathy decreases after induction. Cardiology following appreciated. Patient had EKG and echo during his last admit, 08/11, 08/12. Continuous telemetry monitoring. Pt is going to have 12 lead EKG twice a week while on treatment. CBC, CMP, mag daily. Need to keep magnesium >1.8mg/dl and K+ >4mmol/L. Magnesium supplemented yesterday. Cont K+ supplement, may add to IVF. Coags, fibrinogen daily. HOLD coumadin for a few days due to high risk of coagulopathy during induction. INR was doen to 1.5 today, fibrinogen still normal Stat uric acid was elevated. Elitek given, elitek was adequate in decreasing uric acid SCDs for DVT prophylaxis Supportive medications ordered for possible side effects. Daily follow-up Patient had bone marrow biopsy and aspirate last week. His results, including FISH studies were returned in the last 24 hours. He was called in to the office for review of the results and for discussion regarding the initiation of treatment. Patient and his were agreeable to the same and to be admitted today. Patient is admitted for induction treatment with arsenic trioxide and Atra which is starting 08/25/20. Reviewed diagnosis, prognosis and treatment with the patient again today. No questions at this time. Main concerns for side effects of this regimen include-differentiation syndrome, coagulopathy and QT prolongation. Differentiation syndrome symptoms include fever, wt gain, dyspnea, acute respiratory distress, interstitial infiltrates on CXR, pleural or pericardial effusion, hypotension, hyperlqukocytosis-unexplained resp distress is the earliest manifestation. IF NOTED IMMEDIATELY: 1) STOP ATRA and Arsenic trioxide. 2) Initiate dexamathasone 10mg IV Q 12 hours until resolution of symptoms, minimum 3 days. 3) Furosemide if clinically indicated. Current Visit: Yes Status: Acute Priority: High Code(s): C92.40 - ACUTE PROMYELOCYTIC LEUKEMIA, NOT HAVING ACHIEVED REMISSION SNOMED Code(s): 218583189 Plan: Doctor attests: I performed a history and physical examination of this patient, developed impression and plan of care. Discussed with dictator. I agree with dictators note, documented as a scribe.
[2020-08-26] MEDS ORDERED: DILTIAZEM 125 MG in SODIUM CHLORIDE 0.9% 100 ML IV SCH (17:30)
[2020-08-26] MEDS: FUROSEMIDE 10 MG/ML 4 ML VIAL IV SCH (18:22)
[2020-08-26] MEDS ORDERED: FUROSEMIDE 10 MG/ML 4 ML VIAL IV STA (18:48)
--- NOTE | 2020-08-26 19:34 | XR ---
EXAMINATION TYPE: XR chest 1V DATE OF EXAM: 08/26/2020 COMPARISON: 08/26/2020 HISTORY: Short of breath TECHNIQUE: Single view FINDINGS: There is some pulmonary interstitial edema. Heart is top normal in size. There are chest le ads. There is slight blunting of the costophrenic angles. IMPRESSION: There is pulmonary interstitial edema unchanged compared to exam this morning in could re late to acute heart failure. Small pleural effusions.
[2020-08-26 21:00] LABS: Glucose,Whole Blood 222 mg/dL (75-99)
[2020-08-26] MEDS: ATORVASTATIN 10 MG TAB PO SCH (22:27)
[2020-08-26] MEDS: amLODIPine 10 MG TAB PO SCH (22:27)
[2020-08-26] MEDS: POTASSIUM CHLORIDE ER 20 MEQ TAB.ER PO SCH (22:28)
[2020-08-27] MEDS: ALPRAZolam 0.25 MG TAB PO PRN ×2 (05:53→22:05)
[2020-08-27 05:58] LABS: Glucose,Whole Blood 229 mg/dL (75-99)
[2020-08-27] MEDS: FUROSEMIDE 10 MG/ML 4 ML VIAL IV SCH ×2 (06:05→21:32)
[2020-08-27] MEDS: METOPROLOL TARTRATE 50 MG TAB PO SCH ×2 (06:10→21:31)
[2020-08-27] MEDS ORDERED: DILTIAZEM DRIP BOLUS FROM BAG 1 MG SOLN IV ONE (06:15)
[2020-08-27] MEDS: metFORMIN 500 MG TAB PO SCH ×2 (06:37→18:12)
[2020-08-27] MEDS: PANTOPRAZOLE 40 MG TABLET PO SCH ×2 (06:38→21:32)
--- NOTE | 2020-08-27 07:23 | CONS ---
CONSULTATION DATE OF SERVICE: 08/26/2020 CHIEF COMPLAINT: Shortness of breath. HISTORY OF PRESENT ILLNESS: This 75-year-old gentleman with a past medical history of multiple medical problems including atrial fibrillation, history of CVA, TIA, diabetes, hypertension, hyperlipidemia, DJD being followed by Dr. 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 Patient is on chemotherapy, but apparently patient developed shortness of breath. The patient had CHF acute exacerbation as well as atrial fibrillation with a fast ventricular rate. The patient was transferred to telemetry and cardiology consultation has been sought at this time. The patient was thought to have acute on chronic diastolic heart failure. Ejection fracture was found to be 50% to 60% with moderate aortic stenosis. The patient anticoagulated with Coumadin. There is no history of any fever, rigors. No history of headache, loss of consciousness. The patient also complained of abdominal distention and pain at this time. PAST MEDICAL HISTORY: History of atrial fibrillation, history of CVA, TIA, history of diabetes mellitus type 2, hypertension, hyperlipidemia, history of DJD, history of prostate disorder. MEDICATIONS: Home medications are: Metformin, Norvasc, Coumadin, K-Dur 20 mEq, Protonix, Lopressor, [place], Neurontin, Lasix, Multaq, Lipitor, alfuzosin. ALLERGIES: None. FAMILY HISTORY: History of bladder cancer in the family. SOCIAL HISTORY: No history of smoking. No history of alcohol. REVIEW OF SYSTEMS: ENT: Diminished hearing and diminished vision. CARDIOVASCULAR SYSTEM: As mentioned earlier. RESPIRATORY SYSTEM: As mentioned earlier. GI: As mentioned earlier. : No dysuria. NERVOUS SYSTEM: No numbness or weakness. ALLERGY/IMMUNOLOGY: No asthma or hayfever. MUSCULOSKELETAL: As mentioned earlier. HEMATOLOGY/ONCOLOGY: As mentioned earlier. ENDOCRINE: No history of diabetes or hypothyroidism. CONSTITUTIONAL: As mentioned earlier. DERMATOLOGY: Negative. RHEUMATOLOGY: Negative. PSYCHIATRY: As mentioned earlier. PHYSICAL EXAMINATION: Patient is alert and oriented x3. Pulse is 110, blood pressure is 117/72, respiration 22, temperature normal, pulse ox 93% on 4 L. HEENT: Conjunctivae normal. NECK: No jugular venous distention. CARDIOVASCULAR: S1, S2 muffled. RESPIRATORY: Breath sounds diminished at the bases. Scattered rhonchi and crackles. ABDOMEN: Soft, nontender. No mass palpable. LEGS: No edema, no swelling. NERVOUS SYSTEM: Higher function as mentioned earlier. Moves all 4 limbs. No focal motor or sensory deficits. LYMPHATICS: No lymphadenopathy of the neck, axillae or groin. SKIN: No ulcer, rash or bleeding. JOINTS: No active deforming arthropathy. LABS: WBC 1.7, hemoglobin is 8.3, platelets 63. INR is 1.5, PT is 14.8. Accu-Cheks 198, 194. ASSESSMENT: 1. Congestive heart failure acute exacerbation with acute on chronic diastolic dysfunction, ejection fraction 50% to 60%. 2. Atrial fibrillation with fast ventricular rate with paroxysmal atrial fibrillation. 3. Moderate aortic stenosis. 4. PVCs on the EKG. 5. 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 6. Pancytopenia secondary to promyelocytic leukemia. 7. History of atrial fibrillation. 8. History of cerebrovascular accident, transient ischemic attack. 9. Diabetes mellitus type 2. 10.Hyperlipidemia. 11.Abdominal distention and pain. 12.Hypertension. 13.History of degenerative joint disease. 14.History of skin disorder. 15.Sleep apnea. 16.History of cardiac catheterization. RECOMMENDATIONS AND DISCUSSION: In this 75-year-old gentleman who presented with multiple complex medical issues, we will monitor the patient closely. Continue the current medications. Continue symptomatic treatment. Patient is on IV Lasix at this time. We will continue to monitor fluid/electrolyte balance closely. Otherwise I would repeat chest x-ray which was personally reviewed by me showed some improvement but still the patient has significant opacities and I would also recommend acute abdominal series for the abdominal distention and provide symptomatic treatment. Closely follow with Hematology/Oncology. Repeat labs in the morning. Monitor electrolytes closely. The EKG shows PVCs. Otherwise, we will continue to monitor. Guarded prognosis. Further recommendations to follow. MMODL / IJN: [id number] /
[2020-08-27 08:56] LABS: Anisocytosis Slight; HCT 24.1 % (39.0-53.0); HGB 8.3 gm/dL (13.0-17.5); MCH 32.4 pg (25.0-35.0); MCHC 34.5 g/dL (31.0-37.0); MCV 94.1 fL (80.0-100.0); Mean Platelet Volume 9.9; Poikilocytosis Slight; RBC 2.56 m/uL (4.30-5.90); RDW 17.3 % (11.5-15.5); WBC 1.5 k/uL (3.8-10.6)
[2020-08-27] MEDS ORDERED: FUROSEMIDE 10 MG/ML 4 ML VIAL IV SCH (09:00)
[2020-08-27 09:12] LABS: Platelet Count 52 k/uL (150-450)
[2020-08-27 09:14] LABS: INR 1.3 (<1.2); Partial Thromboplastin Time 30.5 sec (22.0-30.0); Prothrombin Time 12.9 sec (9.0-12.0)
[2020-08-27] MEDS: TRETINOIN 10 MG CAPSULE PO SCH (09:31)
[2020-08-27] MEDS: TAMSULOSIN 0.4 MG CAP.ER.24H PO SCH ×2 (09:48→21:31)
[2020-08-27] MEDS: DRONEDARONE 400 MG TAB PO SCH ×2 (09:48→21:31)
[2020-08-27] MEDS: GABAPENTIN 100 MG CAP PO SCH ×3 (09:48→21:31)
[2020-08-27 09:49] LABS: Calcium 8.7 mg/dL (8.4-10.2); Magnesium 1.8 mg/dL (1.6-2.3); Potassium 3.8 mmol/L (3.5-5.1); Total Bilirubin 1.3 mg/dL (0.2-1.3); Total Protein 6.8 g/dL (6.3-8.2); Uric Acid 1.3 mg/dL (3.5-8.5)
[2020-08-27] MEDS ORDERED: DEXAMETHASONE SOD PHOSPHATE 10 MG/ML 1 ML VIAL IV SCH (10:00)
--- NOTE | 2020-08-27 10:13 | P.PN ---
Subjective Progress Note Date: 08/27/20 Principal diagnosis: APL In follow-up today patient is sitting up the chair, he is visibly short of breath, on high flow O2, he denies chest tightness, his heart rate is in the 10 0s, rhythm is irregular, he is very fatigued, no bleeding, nausea, vomiting, diaphoresis, new or unusual pain. Objective - Vital Signs Vital signs: Vital Signs Temp 98.2 F 08/27/20 08:00 Pulse 97 08/27/20 08:00 Resp 20 08/27/20 08:00 BP 101/65 08/27/20 08:00 Pulse Ox 93 L 08/27/20 08:00 Intake & Output 08/26/20 08/27/20 08/27/20 18:59 06:59 18:59 Intake Total 2030 Output Total 575 1500 300 Balance 1455 -1500 -300 Weight 99.3 kg 101 kg Intake: Intake, IV Titration 450 Amount Diltiazem 125 mg In 10 Sodium Chloride 0.9% 100 ml @ 15 MG/HR 15 mls/hr IV .Q8H20M ANA Rx#: [id number] Non Formulary Drug 1 each 65 In Sodium Chloride 0.9% 100 ml @ 65 mls/hr IV Q24H ANA Rx#:[id number] Sodium Chloride 0.9% 1, 375 000 ml @ 40 mls/hr IV . Q24H ANA Rx#:[id number] Oral 1580 Output: Urine 575 1500 300 Other: Voiding Method Toilet Indwelling Catheter Urinal # Voids 2 - Constitutional Constitutional Comment(s): In general patient looks unwell General appearance: Present: obese, severe distress - EENT Eyes: Present: anicteric sclerae, EOMI ENT: Present: hearing grossly normal - Respiratory Respiratory: bilateral: rales (Bibasilar) - Cardiovascular Rhythm: irregularly irregular Abnormal Heart Sounds: Present: systolic murmur - Peripheral edema leg Peripheral Edema: bilateral: Trace - Gastrointestinal General gastrointestinal: Present: normal bowel sounds, soft. Absent: absent bowel sounds, decreased bowel sounds, distended, hepatomegaly, hyperactive bowel sounds, organomegaly, rigid, scaphoid, splenomegaly, tenderness, umbilical hernia, ventral hernia - Integumentary Integumentary: Present: pale - Musculoskeletal Musculoskeletal: Present: generalized weakness - Psychiatric Psychiatric Comment(s): Patient drifts off to sleep during our conversation but, is oriented when aroused Psychiatric: Present: appropriate affect, intact judgment & insight - Labs CBC & Chem 7: 08/27/20 08:38 08/27/20 08:38 Labs: Abnormal Lab Results - Last 24 Hours (Table) 08/26/20 08/26/20 08/26/20 Range/Units 05:47 11:38 17:02 WBC (3.8-10.6) k/uL RBC (4.30-5.90) m/uL Hgb (13.0-17.5) gm/dL Hct (39.0-53.0) % RDW (11.5-15.5) % PT (9.0-12.0) sec INR (<1.2) APTT (22.0-30.0) sec Anion Gap 14.00 H (4.00-12.00) mmol/L Est GFR (CKD-EPI)NonAf 53.8 L (60.0-200.0) Glucose 234 H (70-110) mg/dL POC Glucose (mg/dL) 194 H 226 H (75-99) mg/dL Plasma Lactic Acid John Paul (0.7-2.0) mmol/L Uric Acid <0.5 L (3.7-8.7) mg/dL Calcium 8.6 L (8.7-10.3) mg/dL Total Protein 6.0 L (6.2-8.2) g/dL 08/26/20 08/27/20 08/27/20 Range/Units 20:53 05:54 08:38 WBC (3.8-10.6) k/uL RBC (4.30-5.90) m/uL Hgb (13.0-17.5) gm/dL Hct (39.0-53.0) % RDW (11.5-15.5) % PT 12.9 H (9.0-12.0) sec INR 1.3 H (<1.2) APTT 30.5 H (22.0-30.0) sec Anion Gap (4.00-12.00) mmol/L Est GFR (CKD-EPI)NonAf (60.0-200.0) Glucose (70-110) mg/dL POC Glucose (mg/dL) 222 H 229 H (75-99) mg/dL Plasma Lactic Acid John Paul (0.7-2.0) mmol/L Uric Acid (3.7-8.7) mg/dL Calcium (8.7-10.3) mg/dL Total Protein (6.2-8.2) g/dL 08/27/20 08/27/20 Range/Units 08:38 08:38 WBC 1.5 L (3.8-10.6) k/uL RBC 2.56 L (4.30-5.90) m/uL Hgb 8.3 L (13.0-17.5) gm/dL Hct 24.1 L (39.0-53.0) % RDW 17.3 H (11.5-15.5) % PT (9.0-12.0) sec INR (<1.2) APTT (22.0-30.0) sec Anion Gap (4.00-12.00) mmol/L Est GFR (CKD-EPI)NonAf (60.0-200.0) Glucose (70-110) mg/dL POC Glucose (mg/dL) (75-99) mg/dL Plasma Lactic Acid John Paul 3.5 H* (0.7-2.0) mmol/L Uric Acid (3.7-8.7) mg/dL Calcium (8.7-10.3) mg/dL Total Protein (6.2-8.2) g/dL Assessment and Plan (1) 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 He is on a Cardizem drip and Lasix twice a day for CHF. His heart rate is significantly improved from yesterday. In general though, patient looks unwell, increasing O2 needs, very fatigued and worn out. We will hold APL treatment and give the chance the patient a chance to recover from exacerbation of CHF and quite possibly an underlying infection as his lactic acid is significantly elevated. Dexamethasone I spoke to nursing and pharmacy. Communication order will have to be sent to both nursing and pharmacy in order to resume therapy. Patient has had 2 of 5 days of treatment. We will continue all monitoring and labs as already ordered. Cont labs and coags daily. Coumadin continues to be held. The risk for coagulopathy decreases after induction. Cardiology following appreciated. Patient had EKG and echo during his last admit, 08/11, 08/12. Continuous telemetry monitoring. Pt is going to have 12 lead EKG twice a week while on treatment. CBC, CMP, mag daily. Need to keep magnesium >1.8mg/dl and K+ >4mmol/L. Magnesium supplemented yesterday. Cont oral K+ supplement. Coags, fibrinogen daily. HOLD coumadin for a few days due to high risk of coagulopathy during induction. INR still pending at 10AM, fibrinogen still pending Stat uric acid was elevated. Elitek given, elitek was adequate in decreasing uric acid SCDs for DVT prophylaxis Supportive medications ordered for possible side effects. Daily follow-up Left for reference: Main concerns for side effects of this regimen include- differentiation syndrome, coagulopathy and QT prolongation. Differentiation syndrome symptoms include fever, wt gain, dyspnea, acute respiratory distress, interstitial infiltrates on CXR, pleural or pericardial effusion, hypotension, hyperlqukocytosis-unexplained resp distress is the earliest manifestation. IF NOTED IMMEDIATELY: 1) STOP ATRA and Arsenic trioxide. 2) Initiate dexamathasone 10mg IV Q 12 hours until resolution of symptoms, minimum 3 days. 3) Furosemide if clinically indicated. Current Visit: Yes Status: Acute Priority: High Code(s): C92.40 - ACUTE PROMYELOCYTIC LEUKEMIA, NOT HAVING ACHIEVED REMISSION SNOMED Code(s): 356649598 Plan: Doctor attests: I performed a history and physical examination of this patient, developed impression and plan of care. Discussed with dictator. I agree with dictators note, documented as a scribe.
[2020-08-27 10:33] LABS: Band Neutrophils % 1 %; Lymphocytes # (M) 0.48 k/uL (1.0-4.8); Metamyelocytes # (M) 0.03 k/uL (0); Metamyelocytes % 2 %; Monocytes # (M) 0.12 k/uL (0-1.0); Myelocytes # (M) 0.02 k/uL (0); Myelocytes % 1 %; Neutrophils % (M) 39 %; Promyelocytes # (M) 0.06 k/uL (0); Promyelocytes % 4 %
[2020-08-27 10:34] LABS: Nucleated Red Blood Cells 3 /100 WBC (0-0); Polychromasia Present; Total Cells Counted 100
[2020-08-27] MEDS: DILTIAZEM 125 MG in SODIUM CHLORIDE 0.9% 100 ML IV SCH ×2 (11:11→18:21)
[2020-08-27] MEDS: DEXAMETHASONE SOD PHOSPHATE 10 MG/ML 1 ML VIAL IV SCH ×2 (11:13→21:32)
[2020-08-27 11:32] LABS: Glucose,Whole Blood 224 mg/dL (75-99)
--- NOTE | 2020-08-27 12:22 | P.PN ---
Subjective Progress Note Date: 08/27/20 This is a pleasant 75-year-old gentleman with history of paroxysmal atrial fibrillation, diabetes, hypertension, hyperlipidemia, recent diagnosis of APL. Follows with Dr. Chakraborty in the office. A cardiology consultation was requested because of atrial fibrillation with rapid ventricular response. Patient was transferred to the cardiac unit last night, he was in atrial fibrillation with a rapid ventricular response and was extremely short of breath. At the time of our examination this morning, patient states that he feels well, he doesn't recall the episodes through the night of being short of breath, he is mildly confused this morning. Blood pressure 102/60, heart rate in the 90s low 100s, 94% on 8 L of oxygen. White blood cell count 1.5, hemoglobin 8.3, platelet count 52. Sodium 137, potassium 3.8, BUN 27, creatinine 1.2. Plasma lactic acid 3.5, magnesium 1.8. The patient is cu rrently on metoprolol 100 mg by mouth twice a day along with Multaq. Objective - Vital Signs Vital signs: Vital Signs Temp 98.4 F 08/27/20 11:14 Pulse 103 H 08/27/20 11:14 Resp 24 08/27/20 11:14 BP 102/61 08/27/20 11:14 Pulse Ox 94 L 08/27/20 11:14 Intake & Output 08/26/20 08/27/20 08/27/20 18:59 06:59 18:59 Intake Total 2030 91.75 Output Total 575 1500 300 Balance 1455 -1500 -208.25 Weight 99.3 kg 101 kg Intake: Intake, IV Titration 450 91.75 Amount Diltiazem 125 mg In 10 91.75 Sodium Chloride 0.9% 100 ml @ 15 MG/HR 15 mls/hr IV .Q8H20M ANA Rx#: [id number] Non Formulary Drug 1 each 65 In Sodium Chloride 0.9% 100 ml @ 65 mls/hr IV Q24H ANA Rx#:[id number] Sodium Chloride 0.9% 1, 375 000 ml @ 40 mls/hr IV . Q24H ANA Rx#:[id number] Oral 1580 Output: Urine 575 1500 300 Other: Voiding Method Toilet Indwelling Catheter Indwelling Catheter Urinal # Voids 2 - Exam GENERAL: Well-developed in no acute distress. HEENT: Head is normocephalic. Pupils are equal, round. Sclerae anicteric. Mucous membranes of the mouth are moist. Neck supple. No JVD or thyromegaly LUNGS: Respirations even and unlabored. Lungs essentially clear to auscultation bilaterally. HEART: Regular rate and rhythm. S1 and S2 heard. Systolic murmur. ABDOMEN: Soft. Nondistended. Nontender. EXTREMITIES: Normal range of motion. No clubbing or cyanosis. Peripheral pulses intact. No lower extremity edema NEUROLOGIC: Awake and alert. Oriented x 3. - Labs CBC & Chem 7: 08/27/20 08:38 08/27/20 08:38 Labs: Abnormal Lab Results - Last 24 Hours (Table) 08/26/20 08/26/20 08/26/20 Range/Units 05:47 17:02 20:53 WBC (3.8-10.6) k/uL RBC (4.30-5.90) m/uL Hgb (13.0-17.5) gm/dL Hct (39.0-53.0) % RDW (11.5-15.5) % Plt Count (150-450) k/uL Blast Cells % % Neutrophils # (Manual) (1.3-7.7) k/uL Lymphocytes # (Manual) (1.0-4.8) k/uL Metamyelocytes # (Man) (0) k/uL Myelocytes # (Manual) (0) k/uL Promyelocytes # (Man) (0) k/uL Blast Cells # (Man) (0) k/uL Nucleated RBCs (0-0) /100 WBC PT (9.0-12.0) sec INR (<1.2) APTT (22.0-30.0) sec Anion Gap 14.00 H (4.00-12.00) mmol/L BUN (9-20) mg/dL Est GFR (CKD-EPI)NonAf 53.8 L (60.0-200.0) Glucose 234 H (70-110) mg/dL POC Glucose (mg/dL) 226 H 222 H (75-99) mg/dL Plasma Lactic Acid John Paul (0.7-2.0) mmol/L Uric Acid <0.5 L (3.7-8.7) mg/dL Calcium 8.6 L (8.7-10.3) mg/dL Total Protein 6.0 L (6.2-8.2) g/dL 08/27/20 08/27/20 08/27/20 Range/Units 05:54 08:38 08:38 WBC 1.5 L (3.8-10.6) k/uL RBC 2.56 L (4.30-5.90) m/uL Hgb 8.3 L (13.0-17.5) gm/dL Hct 24.1 L (39.0-53.0) % RDW 17.3 H (11.5-15.5) % Plt Count 52 L (150-450) k/uL Blast Cells % 13 H* % Neutrophils # (Manual) 0.60 L (1.3-7.7) k/uL Lymphocytes # (Manual) 0.48 L (1.0-4.8) k/uL Metamyelocytes # (Man) 0.03 H (0) k/uL Myelocytes # (Manual) 0.02 H (0) k/uL Promyelocytes # (Man) 0.06 H (0) k/uL Blast Cells # (Man) 0.20 H (0) k/uL Nucleated RBCs 3 H (0-0) /100 WBC PT 12.9 H (9.0-12.0) sec INR 1.3 H (<1.2) APTT 30.5 H (22.0-30.0) sec Anion Gap (4.00-12.00) mmol/L BUN (9-20) mg/dL Est GFR (CKD-EPI)NonAf (60.0-200.0) Glucose (70-110) mg/dL POC Glucose (mg/dL) 229 H (75-99) mg/dL Plasma Lactic Acid John Paul (0.7-2.0) mmol/L Uric Acid (3.7-8.7) mg/dL Calcium (8.7-10.3) mg/dL Total Protein (6.2-8.2) g/dL 08/27/20 08/27/20 08/27/20 Range/Units 08:38 08:38 11:30 WBC (3.8-10.6) k/uL RBC (4.30-5.90) m/uL Hgb (13.0-17.5) gm/dL Hct (39.0-53.0) % RDW (11.5-15.5) % Plt Count (150-450) k/uL Blast Cells % % Neutrophils # (Manual) (1.3-7.7) k/uL Lymphocytes # (Manual) (1.0-4.8) k/uL Metamyelocytes # (Man) (0) k/uL Myelocytes # (Manual) (0) k/uL Promyelocytes # (Man) (0) k/uL Blast Cells # (Man) (0) k/uL Nucleated RBCs (0-0) /100 WBC PT (9.0-12.0) sec INR (<1.2) APTT (22.0-30.0) sec Anion Gap (4.00-12.00) mmol/L BUN 27 H (9-20) mg/dL Est GFR (CKD-EPI)NonAf (60.0-200.0) Glucose 276 H (70-110) mg/dL POC Glucose (mg/dL) 224 H (75-99) mg/dL Plasma Lactic Acid John Paul 3.5 H* (0.7-2.0) mmol/L Uric Acid 1.3 L (3.7-8.7) mg/dL Calcium (8.7-10.3) mg/dL Total Protein (6.2-8.2) g/dL Assessment and Plan Plan: Assessment and plan #1 APL #2 cute on Chronic diastolic heart failure, EF 55-60% #3 Moderate aortic stenosis #4Paroxysmal atrial fibrillation, on long-term anticoagulation with Coumadin #5History of cardioversion, 2018 #6Hypertension #7Hyperlipidemia #8Diabetes mellitus, type II #9Hypomagnesemia Plan From cardiology's perspective, we'll continue the patient on his current medications. DNP note has been reviewed, I agree with a documented findings and plan of care. Patient was seen and examined.
[2020-08-27 16:08] LABS: Hemoglobin A1C 6.9 % (4.0-6.0)
[2020-08-27 16:37] LABS: Glucose,Whole Blood 344 mg/dL (75-99)
[2020-08-27] MEDS ORDERED: INSULIN ASPART (NovoLOG) 100 UNIT/ML VIAL SQ SCH (17:30)
[2020-08-27] MEDS: INSULIN ASPART (NovoLOG) 100 UNIT/ML VIAL SQ SCH ×2 (19:06→21:33)
[2020-08-27 19:59] LABS: Glucose,Whole Blood 236 mg/dL (75-99)
--- NOTE | 2020-08-27 20:23 | P.PN ---
Progress Note - Text Progress Note Date: 08/27/20 Presenting complaint: Tired Interval history: This is a patient who was recently diagnosed with promyelocytic leukemia. On chemotherapy. Went to CHF and atrial fibrillation with rapid ventricular rate. Transferred to telemetry floor. Today-sitting at the edge of bed. Some shortness of breath. Remains in A. fib. IV Cardizem drip.-Oxygen. Started on IV dexamethasone by oncology. Did eat some. Review of systems: Was done for constitutional, cardiovascular, GI, pulmonary. relevant finding as above Active Medications Hydrocodone Bitart/Acetaminophen (Hydrocodone/Apap 10-325mg 1 Each Tab) 1 each PO QID PRN PRN Reason: Pain Last Admin: 08/26/20 03:53 Dose: 1 each Documented by: Al Hydroxide/Mg Hydroxide (Mag Hydrox/Al Hydrox/Simeth 30 Ml Cup) 30 ml PO Q4HR PRN PRN Reason: GI Upset Last Admin: 08/25/20 21:51 Dose: 30 ml Documented by: Alprazolam (Alprazolam 0.25 Mg Tab) 0.25 mg PO TID PRN PRN Reason: Anxiety Last Admin: 08/27/20 05:53 Dose: 0.25 mg Documented by: Amlodipine Besylate (Amlodipine 10 Mg Tab) 10 mg PO HS [facility] Last Admin: 08/26/20 22:27 Dose: 10 mg Documented by: Atorvastatin Calcium (Atorvastatin 10 Mg Tab) 10 mg PO HS [facility] Last Admin: 08/26/20 22:27 Dose: 10 mg Documented by: Dexamethasone Sodium Phosphate (Dexamethasone Sod Phosphate 10 Mg/Ml 1 Ml Vial) 10 mg IV BID [facility] Last Admin: 08/27/20 11:13 Dose: 10 mg Documented by: Dronedarone (Dronedarone 400 Mg Tab) 400 mg PO BID [facility] Last Admin: 08/27/20 09:48 Dose: 400 mg Documented by: Furosemide (Furosemide 10 Mg/Ml 4 Ml Vial) 40 mg IV Q12HR [facility] Last Admin: 08/27/20 06:05 Dose: 40 mg Documented by: Gabapentin (Gabapentin 100 Mg Cap) 100 mg PO TID [facility] Last Admin: 08/27/20 18:12 Dose: 100 mg Documented by: Diltiazem HCl 125 mg/ Sodium (Chloride) 125 mls @ 15 mls/hr IV .Q8H20M [facility] Last Admin: 08/27/20 18:21 Dose: 15 mg/hr, 15 mls/hr Documented by: Insulin Aspart (Insulin Aspart (Novolog) 100 Unit/Ml Vial) 0 unit SQ [facility]; Protocol Last Admin: 08/27/20 19:06 Dose: Not Given Documented by: Insulin Detemir (Insulin Detemir (Levemir) 100 Unit/Ml Syr) 12 unit SQ [facility] Metformin HCl (Metformin 500 Mg Tab) 500 mg PO W/BRKFST [facility] Last Admin: 08/27/20 06:37 Dose: 500 mg Documented by: Metformin HCl (Metformin 500 Mg Tab) 1,000 mg PO W/SUPPER [facility] Last Admin: 08/27/20 18:12 Dose: 1,000 mg Documented by: Metoprolol Tartrate (Metoprolol Tartrate 50 Mg Tab) 100 mg PO BID [facility] Last Admin: 08/27/20 06:10 Dose: 100 mg Documented by: Miscellaneous Information (Potassium Replacement Protocol 1 Each Misc) 1 each MISCELLANE DAILY PRN; Protocol PRN Reason: Per Protocol Miscellaneous Information (Magnesium Replacement Protocol 1 Each Misc) 1 each MISCELLANE DAILY PRN; Protocol PRN Reason: Per Protocol Pantoprazole Sodium (Pantoprazole 40 Mg Tablet) 40 mg PO [facility] Last Admin: 08/26/20 22:27 Dose: 40 mg Documented by: Pantoprazole Sodium (Pantoprazole 40 Mg Tablet) 40 mg PO -[facility] Last Admin: 08/27/20 06:38 Dose: 40 mg Documented by: Potassium Chloride (Potassium Chloride Er 20 Meq Tab.Er) 20 meq PO [facility] Last Admin: 08/26/20 22:28 Dose: 20 meq Documented by: Tamsulosin HCl (Tamsulosin 0.4 Mg Cap.Er.24h) 0.4 mg PO BID [facility] Last Admin: 08/27/20 09:48 Dose: 0.4 mg Documented by: On examination: VITAL SIGNS: 98.4, 103, 24, 102/61, 94% on 8 L GENERAL APPEARANCE: BMI 34.9, sitting at edge of the bed, short of breath HEENT: Normal external appearance of nose and ear. Oral cavity normal, nasal cannula--low EYES: Pupils equal. Conjunctiva normal. NECK: JVD unable to assess. Mass not palpable. RESPIRATORY: Respiratory effort increased. Accessory muscles are working, unable to speak in full sentences, decreased breath sounds. CARDIOVASCULAR: Heart sounds irregular some edema.. ABDOMEN: Soft. Liver and spleen not palpable. No tenderness. No mass palpable. PSYCHIATRY: Alert and oriented x3. Mood and affect anxious. INVESTIGATIONS, reviewed in the clinical context: White count 1.5 hemoglobin 8.3 platelets 52 blast cells 30% Potassium 3.8 creatinine 1.24 blood glucose 276 lactic acid 3.5 uric acid 1.3 Chest x-ray film personally reviewed by me-pulmonary edema 2-D echocardiogram from last month showed EF 60-65% Assessment: -Persistent atrial flutter-fibrillation with a rapid ventricular rate -Acute congestive heart failure exacerbation from diastolic dysfunction EF 60- 65%, precipitated by atrial flutter fibrillation with a rapid ventricular rate-slow to respond -Diabetes mellitus type 2, uncontrolled with hyperglycemia -Essential hypertension -Hyperlipidemia -Primary osteoarthritis -Obstructive sleep apnea uses CPAP -Childhood polio -Obstructive sleep apnea uses CPAP -Primary osteoarthritis -Promyelocytic leukemia-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 Follow closely.
[2020-08-27] MEDS ORDERED: INSULIN DETEMIR (LEVEMIR) 100 UNIT/ML SYR SQ SCH (21:00)
[2020-08-27] MEDS: amLODIPine 10 MG TAB PO SCH (21:31)
[2020-08-27] MEDS: POTASSIUM CHLORIDE ER 20 MEQ TAB.ER PO SCH (21:31)
[2020-08-27] MEDS: ATORVASTATIN 10 MG TAB PO SCH (21:32)
[2020-08-28] MEDS: MAG HYDROX/AL HYDROX/SIMETH 30 ML CUP PO PRN ×2 (01:16→14:27)
[2020-08-28] MEDS: HYDROcodone/APAP 10-325MG 1 EACH TAB PO PRN ×2 (01:16→23:55)
[2020-08-28 06:17] LABS: Glucose,Whole Blood 299 mg/dL (75-99)
[2020-08-28] MEDS: PANTOPRAZOLE 40 MG TABLET PO SCH ×2 (06:46→20:26)
[2020-08-28] MEDS: DILTIAZEM 125 MG in SODIUM CHLORIDE 0.9% 100 ML IV SCH (06:46)
[2020-08-28] MEDS: INSULIN ASPART (NovoLOG) 100 UNIT/ML VIAL SQ SCH ×2 (06:46→12:21)
[2020-08-28] MEDS: metFORMIN 500 MG TAB PO SCH ×2 (06:46→16:15)
--- NOTE | 2020-08-28 07:07 | XR ---
EXAMINATION TYPE: XR chest 2V DATE OF EXAM: 08/28/2020 COMPARISON: 08/26/2020 HISTORY: Shortness of breath TECHNIQUE: Frontal and lateral views of the chest are obtained. FINDINGS: Scattered senescent parenchymal changes noted. Hyperinflation compatible with COPD. Persistent patchy perihilar and basilar infiltrates may reflect pneumonia. Correlate clinically and p rogress studies are advised. Heart size is stable. Mediastinal structures are stable and grossly unremarkable. No evidence for hilar prominence. Degenerative changes dorsal spine. IMPRESSION: 1. Persistent patchy perihilar and basilar infiltrates may reflect pneumonia. Correlate clinically an d progress studies are advised.
[2020-08-28] MEDS: METOPROLOL TARTRATE 50 MG TAB PO SCH ×2 (09:09→20:26)
[2020-08-28] MEDS: GABAPENTIN 100 MG CAP PO SCH ×3 (09:09→20:27)
[2020-08-28] MEDS: POTASSIUM CHLORIDE ER 20 MEQ TAB.ER PO SCH ×2 (09:09→20:27)
[2020-08-28] MEDS: FUROSEMIDE 10 MG/ML 4 ML VIAL IV SCH ×2 (09:09→20:28)
[2020-08-28] MEDS: MAGNESIUM OXIDE 400 MG TAB PO SCH (09:10)
[2020-08-28] MEDS: DEXAMETHASONE SOD PHOSPHATE 10 MG/ML 1 ML VIAL IV SCH ×2 (09:10→20:27)
[2020-08-28] MEDS: TAMSULOSIN 0.4 MG CAP.ER.24H PO SCH ×2 (09:10→20:26)
[2020-08-28] MEDS: DRONEDARONE 400 MG TAB PO SCH ×2 (09:10→20:26)
--- NOTE | 2020-08-28 11:17 | P.PN ---
Subjective Progress Note Date: 08/28/20 This is a pleasant 75-year-old gentleman with history of paroxysmal atrial fibrillation, diabetes, hypertension, hyperlipidemia, recent diagnosis of APL. Follows with Dr. Chakraborty in the office. A cardiology consultation was requested because of atrial fibrillation with rapid ventricular response. Patient was transferred to the cardiac unit last night, he was in atrial fibrillation with a rapid ventricular response and was extremely short of breath. At the time of our examination this morning, patient states that he feels well, he doesn't recall the episodes through the night of being short of breath, he is mildly confused this morning. Blood pressure 102/60, heart rate in the 90s low 100s, 94% on 8 L of oxygen. White blood cell count 1.5, hemoglobin 8.3, platelet count 52. Sodium 137, potassium 3.8, BUN 27, creatinine 1.2. Plasma lactic acid 3.5, magnesium 1.8. The patient is cu rrently on metoprolol 100 mg by mouth twice a day along with Multaq. 08-28-20 Patient was seen and examined this morning, still appears to be quite short of breath, on IV Lasix. He continues to be on IV Cardizem, we will discontinue that today and start the patient on oral Cardizem. Patient was in a normal sinus rhythm on arrival to the hospital, we will continue with mild tach. Patient was also on Coumadin for anticoagulation, we will check into coverage for Eliquis. We will also discuss with oncology regarding timing of initiation of anticoagulation. Blood pressure 106/60 with a heart rate of 90, 96% on 8 L of oxygen. Objective - Vital Signs Vital signs: Vital Signs Temp 98.5 F 08/28/20 09:17 Pulse 98 08/28/20 09:17 Resp 18 08/28/20 09:17 BP 106/66 08/28/20 09:17 Pulse Ox 96 08/28/20 09:17 Intake & Output 08/27/20 08/28/20 08/28/20 18:59 06:59 18:59 Intake Total 519.25 125 Output Total 750 900 Balance -230.75 -775 Weight 96.9 kg Intake: IV 80 0.9 80 Intake, IV Titration 199.25 125 Amount Diltiazem 125 mg In 199.25 125 Sodium Chloride 0.9% 100 ml @ 15 MG/HR 15 mls/hr IV .Q8H20M [facility] Rx#: [id number] Non Formulary Drug 1 each 0 In Sodium Chloride 0.9% 100 ml @ 65 mls/hr IV Q24H [facility] Rx#:[id number] Oral 240 Output: Urine 750 900 Other: Voiding Method Indwelling Catheter Indwelling Catheter Indwelling Catheter - Exam GENERAL: Well-developed in no acute distress. HEENT: Head is normocephalic. Pupils are equal, round. Sclerae anicteric. Mucous membranes of the mouth are moist. Neck supple. No JVD or thyromegaly LUNGS: Respirations even and unlabored. Lungs essentially clear to auscultation bilaterally. HEART: Regular rate and rhythm. S1 and S2 heard. Systolic murmur. ABDOMEN: Soft. Nondistended. Nontender. EXTREMITIES: Normal range of motion. No clubbing or cyanosis. Peripheral puls es intact. No lower extremity edema NEUROLOGIC: Awake and alert. Oriented x 3. - Labs CBC & Chem 7: 08/27/20 08:38 08/27/20 08:38 Labs: Abnormal Lab Results - Last 24 Hours (Table) 08/27/20 08/27/20 08/27/20 Range/Units 08:38 11:30 11:34 POC Glucose (mg/dL) 224 H (75-99) mg/dL Hemoglobin A1c 6.9 H (4.0-6.0) % Plasma Lactic Acid John Paul 2.7 H* (0.7-2.0) mmol/L 08/27/20 08/27/20 08/27/20 Range/Units 15:28 16:36 18:22 POC Glucose (mg/dL) 344 H (75-99) mg/dL Hemoglobin A1c (4.0-6.0) % Plasma Lactic Acid John Paul 3.0 H* 2.2 H* (0.7-2.0) mmol/L 08/27/20 08/28/20 Range/Units 19:58 06:15 POC Glucose (mg/dL) 236 H 299 H (75-99) mg/dL Hemoglobin A1c (4.0-6.0) % Plasma Lactic Acid John Paul (0.7-2.0) mmol/L Assessment and Plan Plan: Assessment and plan #1 APL #2 cute on Chronic diastolic heart failure, EF 55-60% #3 Moderate aortic stenosis #4Paroxysmal atrial fibrillation, on long-term anticoagulation with Coumadin #5History of cardioversion, 2018 #6Hypertension #7Hyperlipidemia #8Diabetes mellitus, type II #9Hypomagnesemia Plan From cardiology's perspective, we'll discontinue the IV Cardizem and start the patient on oral Cardizem. Continue current dose of IV Lasix. We will also check into coverage for Eliquis, and when cleared by oncology, and initiate oral anticoagulation for stroke prevention. DNP note has been reviewed, I agree with a documented findings and plan of care. Patient was seen and examined.
[2020-08-28] MEDS: DILTIAZEM ORAL 60 MG TAB PO SCH ×3 (11:38→20:37)
[2020-08-28 12:07] LABS: Glucose,Whole Blood 246 mg/dL (75-99)
[2020-08-28 12:25] LABS: Anisocytosis Slight; HCT 22.8 % (39.0-53.0); HGB 8.1 gm/dL (13.0-17.5); MCH 33.3 pg (25.0-35.0); MCHC 35.6 g/dL (31.0-37.0); MCV 93.6 fL (80.0-100.0); Mean Platelet Volume 9.4; Poikilocytosis Slight; RBC 2.44 m/uL (4.30-5.90); RDW 17.1 % (11.5-15.5)
[2020-08-28 12:27] LABS: Platelet Count 59 k/uL (150-450)
[2020-08-28 12:36] LABS: Albumin 3.9 g/dL (3.5-5.0); Calcium 8.9 mg/dL (8.4-10.2); Magnesium 2.2 mg/dL (1.6-2.3); Potassium 4.1 mmol/L (3.5-5.1); Total Bilirubin 0.9 mg/dL (0.2-1.3); Total Protein 6.8 g/dL (6.3-8.2)
[2020-08-28 13:10] LABS: INR 1.2 (<1.2); Partial Thromboplastin Time 27.7 sec (22.0-30.0); Prothrombin Time 12.1 sec (9.0-12.0)
[2020-08-28 13:27] LABS: Blast Cells # (M) 2.69 k/uL (0); Lymphocytes # (M) 1.17 k/uL (1.0-4.8); Metamyelocytes # (M) 0.14 k/uL (0); Metamyelocytes % 2 %; Monocytes # (M) 0.55 k/uL (0-1.0); Myelocytes # (M) 0.35 k/uL (0); Myelocytes % 5 %; Neutrophils # (M) 1.66 k/uL (1.3-7.7); Neutrophils % (M) 24 %; Nucleated Red Blood Cells 14 /100 WBC (0-0); Promyelocytes # (M) 0.35 k/uL (0); Promyelocytes % 5 %; Total Cells Counted 100; WBC 6.9 k/uL (3.8-10.6)
[2020-08-28 13:28] LABS: Polychromasia Present
[2020-08-28 14:37] LABS: Uric Acid 3.5 mg/dL (3.5-8.5)
[2020-08-28 17:16] LABS: Glucose,Whole Blood 254 mg/dL (75-99)
[2020-08-28] MEDS ORDERED: INSULIN REGULAR BOLUS (FROM DRIP BAG) IV ONE (18:00)
[2020-08-28 18:21] LABS: Glucose,Whole Blood 230 mg/dL (75-99)
--- NOTE | 2020-08-28 18:28 | P.PN ---
Subjective Progress Note Date: 08/28/20 Principal diagnosis: APL - Acute Hypoxic respiratory failure Patient seen and examined today. Upper abdomen near bottom of rib cage with mild tenderness is non-specific. His breathing has improved from day prior. Objective - Vital Signs Vital signs: Vital Signs Temp 98.4 F 08/28/20 11:59 Pulse 89 08/28/20 11:59 Resp 18 08/28/20 11:59 BP 115/66 08/28/20 11:59 Pulse Ox 93 L 08/28/20 11:59 Intake & Output 08/27/20 08/28/20 08/28/20 18:59 06:59 18:59 Intake Total 519.25 125 Output Total 750 900 Balance -230.75 -775 Weight 96.9 kg Intake: IV 80 0.9 80 Intake, IV Titration 199.25 125 Amount Diltiazem 125 mg In 199.25 125 Sodium Chloride 0.9% 100 ml @ 15 MG/HR 15 mls/hr IV .Q8H20M [facility] Rx#: [id number] Non Formulary Drug 1 each 0 In Sodium Chloride 0.9% 100 ml @ 65 mls/hr IV Q24H [facility] Rx#:[id number] Oral 240 Output: Urine 750 900 Other: Voiding Method Indwelling Catheter Indwelling Catheter Indwelling Catheter - Exam - Constitutional Constitutional Comment(s): In general patient looks unwell General appearance: Present: obese, severe distress - EENT Eyes: Present: anicteric sclerae, EOMI ENT: Present: hearing grossly normal - Respiratory Respiratory: bilateral: rales (Bibasilar) - Cardiovascular Rhythm: irregularly irregular Abnormal Heart Sounds: Present: systolic murmur - Peripheral edema leg Peripheral Edema: bilateral: Trace - Gastrointestinal General gastrointestinal: Present: normal bowel sounds, soft. Absent: absent bowel sounds, decreased bowel sounds, distended, hepatomegaly, hyperactive bowel sounds, organomegaly, rigid, scaphoid, splenomegaly, tenderness, umbilical hernia, ventral hernia - Integumentary Integumentary: Present: pale - Musculoskeletal Musculoskeletal: Present: generalized weakness - Psychiatric Psychiatric Comment(s): Patient drifts off to sleep during our conversation but, is oriented when aroused Psychiatric: Present: appropriate affect, intact judgment & insight - Labs CBC & Chem 7: 08/28/20 11:54 08/28/20 11:54 Labs: Abnormal Lab Results - Last 24 Hours (Table) 08/27/20 08/27/20 08/27/20 Range/Units 08:38 15:28 16:36 RBC (4.30-5.90) m/uL Hgb (13.0-17.5) gm/dL Hct (39.0-53.0) % RDW (11.5-15.5) % POC Glucose (mg/dL) 344 H (75-99) mg/dL Hemoglobin A1c 6.9 H (4.0-6.0) % Plasma Lactic Acid John Paul 3.0 H* (0.7-2.0) mmol/L 08/27/20 08/27/20 08/28/20 Range/Units 18:22 19:58 06:15 RBC (4.30-5.90) m/uL Hgb (13.0-17.5) gm/dL Hct (39.0-53.0) % RDW (11.5-15.5) % POC Glucose (mg/dL) 236 H 299 H (75-99) mg/dL Hemoglobin A1c (4.0-6.0) % Plasma Lactic Acid John Paul 2.2 H* (0.7-2.0) mmol/L 08/28/20 08/28/20 Range/Units 11:42 11:54 RBC 2.44 L (4.30-5.90) m/uL Hgb 8.1 L (13.0-17.5) gm/dL Hct 22.8 L (39.0-53.0) % RDW 17.1 H (11.5-15.5) % POC Glucose (mg/dL) 246 H (75-99) mg/dL Hemoglobin A1c (4.0-6.0) % Plasma Lactic Acid John Paul (0.7-2.0) mmol/L Assessment and Plan Plan: Assessment and Recommendations: 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 He is on a Cardizem drip and Lasix twice a day for CHF. His heart rate is continuing to improve and his breathing is as well Continue to hold off on starting treatment for APL. Daily monitoring of bloodwork: - Coags, Fibrinogen - CBC with Diff - CMP, Mag, Phos - Uric Acid, LDH Need to keep magnesium >1.8mg/dl and K+ >4mmol/L. Status post Elitek on 08/26 SCDs for DVT prophylaxis Supportive medications ordered for possible side effects. Daily follow-up Left for reference: Main concerns for side effects of this regimen include- differentiation syndrome, coagulopathy and QT prolongation. Differentiation syndrome symptoms include fever, wt gain, dyspnea, acute respiratory distress, interstitial infiltrates on CXR, pleural or pericardial effusion, hypotension, hyperlqukocytosis-unexplained resp distress is the earliest manifestation. IF NOTED IMMEDIATELY: 1) STOP ATRA and Arsenic trioxide. 2) Initiate dexamathasone 10mg IV Q 12 hours until resolution of symptoms, minimum 3 days. 3) Furosemide if clinically indicated. Physician Attest: I have completed the full history and physical and developed the full impression and plan, agree with above dictation. Dictated as a scribe.
[2020-08-28] MEDS: INSULIN REGULAR 100 UNIT in SODIUM CHLORIDE 0.9% 100 ML IV SCH (18:30)
[2020-08-28] MEDS ORDERED: INSULIN REGULAR 100 UNIT in SODIUM CHLORIDE 0.9% 100 ML IV SCH (19:00)
[2020-08-28 19:27] LABS: Glucose,Whole Blood 208 mg/dL (75-99)
--- NOTE | 2020-08-28 19:36 | P.PN ---
Progress Note - Text Progress Note Date: 08/28/20 Presenting complaint: Tired Interval history: This is a patient who was recently diagnosed with promyelocytic leukemia. On chemotherapy. Went to CHF and atrial fibrillation with rapid ventricular rate. Transferred to telemetry floor. There was concern by oncology about patient having differentiation syndrome. Patient was started on IV dexamethasone. Put on a Cardizem drip. Today-breathing a bit better. Today. Appetite improving. Heart rate is better controlled. IV Cardizem is being switched over to oral Cardizem. Patient had been on high flow oxygen. Remains on insulin drip. Review of systems: Was done for constitutional, cardiovascular, GI, pulmonary. relevant finding as above Active Medications Hydrocodone Bitart/Acetaminophen (Hydrocodone/Apap 10-325mg 1 Each Tab) 1 each PO QID PRN PRN Reason: Pain Last Admin: 08/28/20 01:16 Dose: 1 each Documented by: Al Hydroxide/Mg Hydroxide (Mag Hydrox/Al Hydrox/Simeth 30 Ml Cup) 30 ml PO Q4HR PRN PRN Reason: GI Upset Last Admin: 08/28/20 14:27 Dose: 30 ml Documented by: Alprazolam (Alprazolam 0.25 Mg Tab) 0.25 mg PO TID PRN PRN Reason: Anxiety Last Admin: 08/27/20 22:05 Dose: 0.25 mg Documented by: Atorvastatin Calcium (Atorvastatin 10 Mg Tab) 10 mg PO HS [facility] Last Admin: 08/27/20 21:32 Dose: 10 mg Documented by: Dexamethasone Sodium Phosphate (Dexamethasone Sod Phosphate 10 Mg/Ml 1 Ml Vial) 10 mg IV BID [facility] Last Admin: 08/28/20 09:10 Dose: 10 mg Documented by: Diltiazem HCl (Diltiazem Oral 60 Mg Tab) 60 mg PO TID [facility] Last Admin: 08/28/20 16:15 Dose: 60 mg Documented by: Dronedarone (Dronedarone 400 Mg Tab) 400 mg PO BID [facility] Last Admin: 08/28/20 09:10 Dose: 400 mg Documented by: Furosemide (Furosemide 10 Mg/Ml 4 Ml Vial) 40 mg IV Q12HR [facility] Last Admin: 08/28/20 09:09 Dose: 40 mg Documented by: Gabapentin (Gabapentin 100 Mg Cap) 100 mg PO TID [facility] Last Admin: 08/28/20 16:15 Dose: 100 mg Documented by: Insulin Human Regular 100 unit (/ Sodium Chloride) 101 mls @ 0 mls/hr IV .Q0M [facility]; Protocol Last Admin: 08/28/20 18:30 Dose: 1 units/hr, 1.01 mls/hr Documented by: Magnesium Oxide (Magnesium Oxide 400 Mg Tab) 400 mg PO DAILY [facility] Last Admin: 08/28/20 09:10 Dose: 400 mg Documented by: Metformin HCl (Metformin 500 Mg Tab) 500 mg PO W/BRKFST [facility] Last Admin: 08/28/20 06:46 Dose: 500 mg Documented by: Metformin HCl (Metformin 500 Mg Tab) 1,000 mg PO W/SUPPER [facility] Last Admin: 08/28/20 16:15 Dose: 1,000 mg Documented by: Metoprolol Tartrate (Metoprolol Tartrate 50 Mg Tab) 100 mg PO BID [facility] Last Admin: 08/28/20 09:09 Dose: 100 mg Documented by: Miscellaneous Information (Potassium Replacement Protocol 1 Each Misc) 1 each MISCELLANE DAILY PRN; Protocol PRN Reason: Per Protocol Miscellaneous Information (Magnesium Replacement Protocol 1 Each Misc) 1 each MISCELLANE DAILY PRN; Protocol PRN Reason: Per Protocol Pantoprazole Sodium (Pantoprazole 40 Mg Tablet) 40 mg PO 0730,2100 [facility] Potassium Chloride (Potassium Chloride Er 20 Meq Tab.Er) 20 meq PO BID [facility] Last Admin: 08/28/20 09:09 Dose: 20 meq Documented by: Tamsulosin HCl (Tamsulosin 0.4 Mg Cap.Er.24h) 0.4 mg PO BID [facility] Last Admin: 08/28/20 09:10 Dose: 0.4 mg Documented by: On examination: VITAL SIGNS: 98.4, 89, 16, 115/66, 93% on 8 L GENERAL APPEARANCE: Laying in bed, less short of breath HEENT: Normal external appearance of nose and ear. Oral cavity normal, nasal cannula--low EYES: Pupils equal. Conjunctiva normal. NECK: JVD unable to assess. Mass not palpable. RESPIRATORY: Respiratory effort increased. , decreased breath sounds. CARDIOVASCULAR: Heart sounds irregular some edema.. ABDOMEN: Soft. Liver and spleen not palpable. No tenderness. No mass palpable. PSYCHIATRY: Alert and oriented x3. Mood and affect anxious. INVESTIGATIONS, reviewed in the clinical context: White count 6.9 hemoglobin 8.1 platelet 59 increased blast cells 30, potassium 4.1 creatinine 1.25 LDH 1879, Accu-Cheks 254 Chest x-ray film personally reviewed by me-shows bilateral infiltrates/interstitial prominence Previous testing White count 1.5 hemoglobin 8.3 platelets 52 blast cells 30% Potassium 3.8 creatinine 1.24 blood glucose 276 lactic acid 3.5 uric acid 1.3 Chest x-ray film personally reviewed by me-pulmonary edema 2-D echocardiogram from last month showed EF 60-65% Assessment: -Persistent atrial flutter-fibrillation with a rapid ventricular rate, now better controlled -Acute congestive heart failure exacerbation from diastolic dysfunction EF 60- 65%, precipitated by atrial flutter fibrillation with a rapid ventricular rate- slow to respond -Acute hypoxic respiratory failure still requiring high flow oxygen, slow to respond -Possible differential syndrome with pulmonary infiltrates, hypoxia requiring IV steroids -Diabetes mellitus type 2, uncontrolled with hyperglycemia secondary to steroids -Essential hypertension -Hyperlipidemia -Primary osteoarthritis -Obstructive sleep apnea uses CPAP -Childhood polio -Obstructive sleep apnea uses CPAP -Primary osteoarthritis -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 Follow closely. Discussed with Dr. Anderson from oncology. Keep on steroids right now.
[2020-08-28] MEDS: ATORVASTATIN 10 MG TAB PO SCH (20:27)
[2020-08-28] MEDS: ALPRAZolam 0.25 MG TAB PO PRN (20:27)
[2020-08-28 21:33] LABS: Glucose,Whole Blood 196 mg/dL (75-99)
[2020-08-28 23:41] LABS: Glucose,Whole Blood 167 mg/dL (75-99)
[2020-08-29] MEDS ORDERED: DILTIAZEM DRIP BOLUS FROM BAG 1 MG SOLN IV ONE (00:30)
[2020-08-29] MEDS: DILTIAZEM 125 MG in SODIUM CHLORIDE 0.9% 100 ML IV SCH ×3 (00:32→21:21)
[2020-08-29 01:27] LABS: Glucose,Whole Blood 173 mg/dL (75-99)
[2020-08-29] MEDS: MAG HYDROX/AL HYDROX/SIMETH 30 ML CUP PO PRN (02:27)
[2020-08-29 03:37] LABS: Glucose,Whole Blood 174 mg/dL (75-99)
[2020-08-29 05:37] LABS: Glucose,Whole Blood 175 mg/dL (75-99)
[2020-08-29] MEDS: metFORMIN 500 MG TAB PO SCH ×2 (06:53→17:33)
[2020-08-29] MEDS: PANTOPRAZOLE 40 MG TABLET PO SCH ×2 (06:54→21:19)
[2020-08-29 09:00] LABS: Glucose,Whole Blood 155 mg/dL (75-99)
[2020-08-29 09:10] LABS: Albumin 3.9 g/dL (3.5-5.0); Calcium 8.9 mg/dL (8.4-10.2); Magnesium 2.6 mg/dL (1.6-2.3); Total Bilirubin 0.9 mg/dL (0.2-1.3); Total Protein 6.9 g/dL (6.3-8.2); Uric Acid 6.3 mg/dL (3.5-8.5)
[2020-08-29] MEDS: MAGNESIUM OXIDE 400 MG TAB PO SCH (09:28)
[2020-08-29] MEDS: METOPROLOL TARTRATE 50 MG TAB PO SCH ×3 (09:28→20:10)
[2020-08-29] MEDS: ALPRAZolam 0.25 MG TAB PO PRN (09:28)
[2020-08-29] MEDS: GABAPENTIN 100 MG CAP PO SCH ×3 (09:28→21:19)
[2020-08-29] MEDS: DRONEDARONE 400 MG TAB PO SCH ×2 (09:28→21:19)
[2020-08-29] MEDS: POTASSIUM CHLORIDE ER 20 MEQ TAB.ER PO SCH ×2 (09:29→21:19)
[2020-08-29] MEDS: TAMSULOSIN 0.4 MG CAP.ER.24H PO SCH ×2 (09:29→21:19)
[2020-08-29] MEDS: HYDROcodone/APAP 10-325MG 1 EACH TAB PO PRN ×2 (09:29→20:09)
--- NOTE | 2020-08-29 09:29 | XR ---
EXAMINATION TYPE: XR chest 1V portable DATE OF EXAM: 08/29/2020 COMPARISON: Prior chest x-ray 08/28/2020 HISTORY: Severe dyspnea, congestive heart failure TECHNIQUE: Single frontal view of the chest is obtained. FINDINGS: Heart is enlarged. Interstitium is increased. Patchy perihilar increased attenuation is no loren. There is an azygos lobe. No evident pneumothorax or sizable effusion. Arthropathy noted in the r ight shoulder. Degenerative disc changes are present in the visualized spine, there is a spinal curva ture. IMPRESSION: Correlate for congestive heart failure, pneumonia not excluded.
[2020-08-29] MEDS: DEXAMETHASONE SOD PHOSPHATE 10 MG/ML 1 ML VIAL IV SCH ×2 (09:30→21:18)
[2020-08-29] MEDS: FUROSEMIDE 10 MG/ML 4 ML VIAL IV SCH ×2 (09:31→20:09)
[2020-08-29 09:49] LABS: Anisocytosis Slight; HCT 24.1 % (39.0-53.0); HGB 8.2 gm/dL (13.0-17.5); MCH 32.1 pg (25.0-35.0); MCHC 34.1 g/dL (31.0-37.0); MCV 94.1 fL (80.0-100.0); Macrocytosis Slight; Mean Platelet Volume 9.8; Poikilocytosis Slight; RBC 2.56 m/uL (4.30-5.90); RDW 18.3 % (11.5-15.5)
[2020-08-29 09:51] LABS: Platelet Count 76 k/uL (150-450)
[2020-08-29 10:06] LABS: INR 1.4 (<1.2); Prothrombin Time 13.7 sec (9.0-12.0)
[2020-08-29 10:49] LABS: Glucose,Whole Blood 213 mg/dL (75-99)
[2020-08-29 11:58] LABS: Band Neutrophils % 1 %; Blast Cells # (M) 5.55 k/uL (0); Metamyelocytes # (M) 1.02 k/uL (0); Metamyelocytes % 7 %; Monocytes # (M) 0.88 k/uL (0-1.0); Myelocytes # (M) 1.31 k/uL (0); Myelocytes % 9 %; Neutrophils % (M) 14 %; Nucleated Red Blood Cells 3 /100 WBC (0-0); Plasma Cells # (M) 0.15 k/uL (0); Plasma Cells % 1 %; Promyelocytes # (M) 0.44 k/uL (0); Promyelocytes % 3 %; Total Cells Counted 200; WBC 14.6 k/uL (3.8-10.6)
--- NOTE | 2020-08-29 12:23 | P.PN ---
Subjective Progress Note Date: 08/29/20 The patient's heart rate had fluctuated, going up to 160-170 through the night. However overall it has been better controlled and this morning has been in the 120 range. subjectively the patient's breathing is better. The patient was having some confusion this morning after receiving his [place] and anxiolytic. Objective - Vital Signs Vital signs: Vital Signs Temp 98.3 F 08/29/20 04:01 Pulse 114 H 08/29/20 04:01 Resp 26 H 08/29/20 04:01 BP 102/66 08/29/20 04:01 Pulse Ox 92 L 08/29/20 04:01 Intake & Output 08/28/20 08/29/20 08/29/20 18:59 06:59 18:59 Intake Total 300 157.118 10.554 Output Total 600 1750 400 Balance -300 -1592.882 -389.446 Weight 99 kg Intake: Intake, IV Titration 37.118 10.554 Amount Insulin Regular 100 unit 37.118 10.554 In Sodium Chloride 0.9% 100 ml @ Titrate IV .Q0M [facility] Rx#:[id number] Oral 300 120 Output: Urine 600 1600 400 Uretheral (Mehta) 1600 Emesis 150 Other: Voiding Method Indwelling Catheter Indwelling Catheter - Constitutional General appearance: Present: no acute distress - EENT Eyes: Present: EOMI ENT: Present: hearing grossly normal, normal oropharynx - Respiratory Respiratory: bilateral: CTA - Cardiovascular Rhythm: irregularly irregular Heart sounds: normal: S1, S2 - Gastrointestinal General gastrointestinal: Present: normal bowel sounds, soft - Integumentary Integumentary: Present: normal - Neurologic Neurologic Comment(s): The patient was confused with intermittent lucidity on prompting Neurologic: Present: CNII-XII intact - Musculoskeletal Musculoskeletal: Present: generalized weakness, strength equal bilaterally - Psychiatric Psychiatric Comment(s): As above - Labs CBC & Chem 7: 08/29/20 08:40 08/29/20 08:40 Labs: Abnormal Lab Results - Last 24 Hours (Table) 08/28/20 08/28/20 08/28/20 Range/Units 11:54 11:54 11:54 WBC (3.8-10.6) k/uL RBC 2.44 L (4.30-5.90) m/uL Hgb 8.1 L (13.0-17.5) gm/dL Hct 22.8 L (39.0-53.0) % RDW 17.1 H (11.5-15.5) % Plt Count 59 L (150-450) k/uL Blast Cells % 39 H* % Metamyelocytes # (Man) 0.14 H (0) k/uL Myelocytes # (Manual) 0.35 H (0) k/uL Promyelocytes # (Man) 0.35 H (0) k/uL Blast Cells # (Man) 2.69 H (0) k/uL Plasma Cell # (Manual) (0) k/uL Nucleated RBCs 14 H (0-0) /100 WBC PT 12.1 H (9.0-12.0) sec INR 1.2 H (<1.2) BUN 42 H (9-20) mg/dL Creatinine (0.66-1.25) mg/dL Glucose 229 H (74-99) mg/dL POC Glucose (mg/dL) (75-99) mg/dL Magnesium (1.6-2.3) mg/dL AST (17-59) U/L Lactate Dehydrogenase (313-618) U/L 08/28/20 08/28/20 08/28/20 Range/Units 11:54 16:54 18:18 WBC (3.8-10.6) k/uL RBC (4.30-5.90) m/uL Hgb (13.0-17.5) gm/dL Hct (39.0-53.0) % RDW (11.5-15.5) % Plt Count (150-450) k/uL Blast Cells % % Metamyelocytes # (Man) (0) k/uL Myelocytes # (Manual) (0) k/uL Promyelocytes # (Man) (0) k/uL Blast Cells # (Man) (0) k/uL Plasma Cell # (Manual) (0) k/uL Nucleated RBCs (0-0) /100 WBC PT (9.0-12.0) sec INR (<1.2) BUN (9-20) mg/dL Creatinine (0.66-1.25) mg/dL Glucose (74-99) mg/dL POC Glucose (mg/dL) 254 H 230 H (75-99) mg/dL Magnesium (1.6-2.3) mg/dL AST (17-59) U/L Lactate Dehydrogenase 1879 H (313-618) U/L 08/28/20 08/28/20 08/28/20 Range/Units 19:26 21:31 23:39 WBC (3.8-10.6) k/uL RBC (4.30-5.90) m/uL Hgb (13.0-17.5) gm/dL Hct (39.0-53.0) % RDW (11.5-15.5) % Plt Count (150-450) k/uL Blast Cells % % Metamyelocytes # (Man) (0) k/uL Myelocytes # (Manual) (0) k/uL Promyelocytes # (Man) (0) k/uL Blast Cells # (Man) (0) k/uL Plasma Cell # (Manual) (0) k/uL Nucleated RBCs (0-0) /100 WBC PT (9.0-12.0) sec INR (<1.2) BUN (9-20) mg/dL Creatinine (0.66-1.25) mg/dL Glucose (74-99) mg/dL POC Glucose (mg/dL) 208 H 196 H 167 H (75-99) mg/dL Magnesium (1.6-2.3) mg/dL AST (17-59) U/L Lactate Dehydrogenase (313-618) U/L 08/29/20 08/29/20 08/29/20 Range/Units 01:26 03:32 05:35 WBC (3.8-10.6) k/uL RBC (4.30-5.90) m/uL Hgb (13.0-17.5) gm/dL Hct (39.0-53.0) % RDW (11.5-15.5) % Plt Count (150-450) k/uL Blast Cells % % Metamyelocytes # (Man) (0) k/uL Myelocytes # (Manual) (0) k/uL Promyelocytes # (Man) (0) k/uL Blast Cells # (Man) (0) k/uL Plasma Cell # (Manual) (0) k/uL Nucleated RBCs (0-0) /100 WBC PT (9.0-12.0) sec INR (<1.2) BUN (9-20) mg/dL Creatinine (0.66-1.25) mg/dL Glucose (74-99) mg/dL POC Glucose (mg/dL) 173 H 174 H 175 H (75-99) mg/dL Magnesium (1.6-2.3) mg/dL AST (17-59) U/L Lactate Dehydrogenase (313-618) U/L 08/29/20 08/29/20 08/29/20 Range/Units 08:40 08:40 08:40 WBC 14.6 H (3.8-10.6) k/uL RBC 2.56 L (4.30-5.90) m/uL Hgb 8.2 L (13.0-17.5) gm/dL Hct 24.1 L (39.0-53.0) % RDW 18.3 H (11.5-15.5) % Plt Count 76 L (150-450) k/uL Blast Cells % 38 H* % Metamyelocytes # (Man) 1.02 H (0) k/uL Myelocytes # (Manual) 1.31 H (0) k/uL Promyelocytes # (Man) 0.44 H (0) k/uL Blast Cells # (Man) 5.55 H (0) k/uL Plasma Cell # (Manual) 0.15 H (0) k/uL Nucleated RBCs 3 H (0-0) /100 WBC PT 13.7 H (9.0-12.0) sec INR 1.4 H (<1.2) BUN 54 H (9-20) mg/dL Creatinine 1.30 H (0.66-1.25) mg/dL Glucose 146 H (74-99) mg/dL POC Glucose (mg/dL) (75-99) mg/dL Magnesium 2.6 H (1.6-2.3) mg/dL AST 73 H (17-59) U/L Lactate Dehydrogenase 5244 H (313-618) U/L 08/29/20 08/29/20 Range/Units 08:58 10:47 WBC (3.8-10.6) k/uL RBC (4.30-5.90) m/uL Hgb (13.0-17.5) gm/dL Hct (39.0-53.0) % RDW (11.5-15.5) % Plt Count (150-450) k/uL Blast Cells % % Metamyelocytes # (Man) (0) k/uL Myelocytes # (Manual) (0) k/uL Promyelocytes # (Man) (0) k/uL Blast Cells # (Man) (0) k/uL Plasma Cell # (Manual) (0) k/uL Nucleated RBCs (0-0) /100 WBC PT (9.0-12.0) sec INR (<1.2) BUN (9-20) mg/dL Creatinine (0.66-1.25) mg/dL Glucose (74-99) mg/dL POC Glucose (mg/dL) 155 H 213 H (75-99) mg/dL Magnesium (1.6-2.3) mg/dL AST (17-59) U/L Lactate Dehydrogenase (313-618) U/L Assessment and Plan (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 The patient is clinically improved from the same with heart rate overall better, as well as the surgery status improved. On exam today I did not appreciate any crackles. - Patient's counts do show increase in WBC, which fits with the clinical picture of the differentiation syndrome. - The patient was thus restarted back on arsenic today. Discussed with pharmacy and nursing. Assuming that he is stable we will resume ATRA tomorrow - No evidence of any tumor lysis. Continue to monitor tumor lysis labs as well as blood counts Current Visit: Yes Status: Acute Priority: High Code(s): C92.40 - ACUTE PROMYELOCYTIC LEUKEMIA, NOT HAVING ACHIEVED REMISSION SNOMED Code(s): 612445701 (2) Acute pulmonary edema Narrative/Plan: Patient is continuing on IV steroids for possible component of differentiation syndrome. Once tretinoin is resumed, we will cut the dose down to the prophylactic Level. Continue treatment for possible cardiogenic component according to cardiology Current Visit: No Status: Acute Code(s): J81.0 - ACUTE PULMONARY EDEMA SNOMED Code(s): 42261238 Plan: Plan discussed with IM
[2020-08-29 12:59] LABS: Glucose,Whole Blood 198 mg/dL (75-99)
--- NOTE | 2020-08-29 14:35 | PN ---
PROGRESS NOTE Mr. Samson is a 75-year-old male with known history of paroxysmal atrial fibrillation, who presented to receive chemotherapy and had atrial fibrillation with rapid ventricular response. He still has some episode of tachycardia, although not as bad. He denies any symptoms of chest pain. He continues to be dyspneic. He denies any dizziness or palpitation. He denies any nausea. He continues to be on Lipitor 10 mg daily, IV Cardizem 10 mg drip, Multaq 400 mg twice a day, Lasix 40 mg twice a day, metoprolol tartrate 100 mg twice a day, and Flomax. His anticoagulation is on hold because of the chemotherapy. PHYSICAL EXAMINATION: Blood pressure running in the 100s to 120s with a heart rate of in the 120s. LUNGS: With crackles bilaterally. HEART: Irregular, regular. S1, S2. No S3. No rub. ABDOMEN: Soft, nontender, obese. EXTREMITIES: +1 edema. LAB DATA: BUN and creatinine of 54 and 1.3, potassium 4.0, platelet count 76,000, hemoglobin of 8.2, white blood cell of 14.6. IMPRESSION: 1. Atrial fibrillation with rapid ventricular response, persistent. 2. Dyspnea with a combination of congestive heart failure. 3. Acute promyelocytic leukemia. 4. Moderate aortic stenosis. 5. History of hypertension. 6. Hyperlipidemia. 7. Diabetes mellitus. RECOMMENDATION: I will continue on the IV Lasix. I will increase the dose of the beta barbara to see if we can control the ventricular response. The patient had episode of sinus mechanism on presentation. We will follow his renal function closely and depending on his progress, further recommendations will be made. MMODL / IJN: [id number] /
[2020-08-29 14:58] LABS: Glucose,Whole Blood 168 mg/dL (75-99)
[2020-08-29] MEDS ORDERED: ARSENIC TRIOXIDE IV SCH (16:00)
[2020-08-29] MEDS ORDERED: SODIUM CHLORIDE 0.9% IV SCH (16:00)
--- NOTE | 2020-08-29 16:08 | P.PN ---
Progress Note - Text Progress Note Date: 08/29/20 Presenting complaint: Tired Interval history: This is a patient who was recently diagnosed with promyelocytic leukemia. On chemotherapy. Went to CHF and atrial fibrillation with rapid ventricular rate. Transferred to telemetry floor. There was concern by oncology about patient having differentiation syndrome. Patient was started on IV dexamethasone. Put on a Cardizem drip. Requiring high flow oxygen. Today-on about 8 L oxygen. Tired. Mild delirium. Eating okay. Heart rate went up to 160s this morning. Put back on IV Cardizem drip. Review of systems: Was done for constitutional, cardiovascular, GI, pulmonary. relevant finding as above Active Medications Hydrocodone Bitart/Acetaminophen (Hydrocodone/Apap 10-325mg 1 Each Tab) 1 each PO QID PRN PRN Reason: Pain Last Admin: 08/29/20 09:29 Dose: 1 each Documented by: Al Hydroxide/Mg Hydroxide (Mag Hydrox/Al Hydrox/Simeth 30 Ml Cup) 30 ml PO Q4HR PRN PRN Reason: GI Upset Last Admin: 08/29/20 02:27 Dose: 30 ml Documented by: Alprazolam (Alprazolam 0.25 Mg Tab) 0.25 mg PO TID PRN PRN Reason: Anxiety Last Admin: 08/29/20 09:28 Dose: 0.25 mg Documented by: Atorvastatin Calcium (Atorvastatin 10 Mg Tab) 10 mg PO HS [facility] Last Admin: 08/28/20 20:27 Dose: 10 mg Documented by: Dexamethasone Sodium Phosphate (Dexamethasone Sod Phosphate 10 Mg/Ml 1 Ml Vial) 10 mg IV BID [facility] Last Admin: 08/29/20 09:30 Dose: 10 mg Documented by: Dronedarone (Dronedarone 400 Mg Tab) 400 mg PO BID [facility] Last Admin: 08/29/20 09:28 Dose: 400 mg Documented by: Furosemide (Furosemide 10 Mg/Ml 4 Ml Vial) 40 mg IV Q12HR [facility] Last Admin: 08/29/20 09:31 Dose: 40 mg Documented by: Gabapentin (Gabapentin 100 Mg Cap) 100 mg PO TID [facility] Last Admin: 08/29/20 09:28 Dose: 100 mg Documented by: Insulin Human Regular 100 unit (/ Sodium Chloride) 101 mls @ 0 mls/hr IV .Q0M [facility]; Protocol Last Titration: 08/29/20 08:59 Dose: 2.5 units/hr, 2.525 mls/hr Documented by: Diltiazem HCl 125 mg/ Sodium (Chloride) 125 mls @ 10 mls/hr IV .[id number] [facility] Last Admin: 08/29/20 12:51 Dose: 10 mg/hr, 10 mls/hr Documented by: Arsenic Trioxide 30 Mg In Sodium Chloride 0.9% 100 Ml 130 mls @ 65 mls/hr IV Q24H [facility] Stop: 08/31/20 17:59 Magnesium Oxide (Magnesium Oxide 400 Mg Tab) 400 mg PO DAILY [facility] Last Admin: 08/29/20 09:28 Dose: 400 mg Documented by: Metformin HCl (Metformin 500 Mg Tab) 500 mg PO W/BRKFST [facility] Last Admin: 08/29/20 06:53 Dose: 500 mg Documented by: Metformin HCl (Metformin 500 Mg Tab) 1,000 mg PO W/SUPPER [facility] Last Admin: 08/28/20 16:15 Dose: 1,000 mg Documented by: Metoprolol Tartrate (Metoprolol Tartrate 50 Mg Tab) 100 mg PO TID [facility] Miscellaneous Information (Potassium Replacement Protocol 1 Each Misc) 1 each MISCELLANE DAILY PRN; Protocol PRN Reason: Per Protocol Miscellaneous Information (Magnesium Replacement Protocol 1 Each Misc) 1 each MISCELLANE DAILY PRN; Protocol PRN Reason: Per Protocol Pantoprazole Sodium (Pantoprazole 40 Mg Tablet) 40 mg PO 0730,2100 [facility] Last Admin: 08/29/20 06:54 Dose: 40 mg Documented by: Potassium Chloride (Potassium Chloride Er 20 Meq Tab.Er) 20 meq PO BID [facility] Last Admin: 08/29/20 09:29 Dose: 20 meq Documented by: Tamsulosin HCl (Tamsulosin 0.4 Mg Cap.Er.24h) 0.4 mg PO BID [facility] Last Admin: 08/29/20 09:29 Dose: 0.4 mg Documented by: On examination: VITAL SIGNS: 97.7, 106, 26, 104/61, 90% on 8 L GENERAL APPEARANCE: Laying in bed,short of breath HEENT: Normal external appearance of nose and ear. Oral cavity normal, nasal cannula--low EYES: Pupils equal. Conjunctiva normal. NECK: JVD unable to assess. Mass not palpable. RESPIRATORY: Respiratory effort increased. , decreased breath sounds. Mild wheezing CARDIOVASCULAR: Heart sounds irregular some edema.. ABDOMEN: Soft. Liver and spleen not palpable. No tenderness. No mass palpable. PSYCHIATRY: Answer questions INVESTIGATIONS, reviewed in the clinical context: White count 14.6 hemoglobin 8.2 platelets 76 blast cells 38% potassium 4 bun 54 creatinine 1.3 LDH 1879, Accu-Cheks 254 Chest x-ray film personally reviewed by me-shows bilateral infiltrates/interstitial prominence Previous testing White count 1.5 hemoglobin 8.3 platelets 52 blast cells 30% Potassium 3.8 creatinine 1.24 blood glucose 276 lactic acid 3.5 uric acid 1.3 Chest x-ray film personally reviewed by me-pulmonary edema 2-D echocardiogram from last month showed EF 60-65% Assessment: -Persistent atrial flutter-fibrillation with a rapid ventricular rate, again worse this morning. -Acute congestive heart failure exacerbation from diastolic dysfunction EF 60- 65%, precipitated by atrial flutter fibrillation with a rapid ventricular rate- slow to respond -Acute hypoxic respiratory failure still requiring high flow oxygen, slow to respond - differential syndrome with pulmonary infiltrates, hypoxia requiring IV steroids -Diabetes mellitus type 2, uncontrolled with hyperglycemia secondary to steroids -Essential hypertension -Hyperlipidemia -Primary osteoarthritis -Obstructive sleep apnea uses CPAP -Childhood polio -Obstructive sleep apnea uses CPAP -Primary osteoarthritis -Promyelocytic leukemia-started on chemotherapy Plan: Patient put back on IV Cardizem drip. Also on IV Decadron. Other medications to continue. Slow to respond.
[2020-08-29 17:09] LABS: Glucose,Whole Blood 168 mg/dL (75-99)
[2020-08-29] MEDS: INSULIN REGULAR 100 UNIT in SODIUM CHLORIDE 0.9% 100 ML IV SCH (18:04)
[2020-08-29 19:18] LABS: Glucose,Whole Blood 211 mg/dL (75-99)
[2020-08-29] MEDS ORDERED: ONDANSETRON 4 MG/2 ML VIAL IVP STA (20:03)
--- NOTE | 2020-08-29 20:38 | XR ---
EXAMINATION TYPE: XR chest 1V portable DATE OF EXAM: 08/29/2020 COMPARISON: Today HISTORY: Short of breath TECHNIQUE: Single view FINDINGS: There is pulmonary congestion. Heart is enlarged. There is slight blunting of the right cos tophrenic angle. There are chest leads. IMPRESSION: There is evidence for some congestive heart failure that is the same or slightly worse th an exam this morning.
[2020-08-29 21:00] LABS: Glucose,Whole Blood 219 mg/dL (75-99)
[2020-08-29] MEDS: ATORVASTATIN 10 MG TAB PO SCH (21:19)
[2020-08-29 22:59] LABS: Glucose,Whole Blood 209 mg/dL (75-99)
[2020-08-30 00:59] LABS: Glucose,Whole Blood 168 mg/dL (75-99)
[2020-08-30 03:09] LABS: Glucose,Whole Blood 178 mg/dL (75-99)
[2020-08-30] MEDS: HYDROcodone/APAP 10-325MG 1 EACH TAB PO PRN (04:18)
[2020-08-30 05:05] LABS: Glucose,Whole Blood 191 mg/dL (75-99)
[2020-08-30] MEDS: metFORMIN 500 MG TAB PO SCH ×2 (06:23→15:10)
[2020-08-30] MEDS: PANTOPRAZOLE 40 MG TABLET PO SCH ×2 (06:23→23:24)
[2020-08-30 06:38] LABS: Glucose,Whole Blood 182 mg/dL (75-99)
[2020-08-30 07:57] LABS: Anisocytosis Slight; HCT 24.1 % (39.0-53.0); MCH 31.7 pg (25.0-35.0); MCHC 33.2 g/dL (31.0-37.0); MCV 95.5 fL (80.0-100.0); Macrocytosis Slight; Mean Platelet Volume 9.7; Poikilocytosis Slight; RBC 2.52 m/uL (4.30-5.90); RDW 17.6 % (11.5-15.5)
[2020-08-30 08:01] LABS: Albumin 3.9 g/dL (3.5-5.0); Calcium 8.3 mg/dL (8.4-10.2); Magnesium 3.2 mg/dL (1.6-2.3); Phosphorus 5.8 mg/dL (2.5-4.5); Potassium 4.5 mmol/L (3.5-5.1); Total Bilirubin 0.9 mg/dL (0.2-1.3); Total Protein 6.8 g/dL (6.3-8.2); Uric Acid 8.9 mg/dL (3.5-8.5)
[2020-08-30 08:22] LABS: Platelet Count 79 k/uL (150-450)
[2020-08-30] MEDS: DEXAMETHASONE SOD PHOSPHATE 10 MG/ML 1 ML VIAL IV SCH (08:30)
[2020-08-30] MEDS: FUROSEMIDE 10 MG/ML 4 ML VIAL IV SCH ×2 (08:30→23:26)
[2020-08-30 08:33] LABS: INR 1.4 (<1.2); Partial Thromboplastin Time 23.1 sec (22.0-30.0)
[2020-08-30 08:36] LABS: Glucose,Whole Blood 186 mg/dL (75-99)
--- NOTE | 2020-08-30 09:00 | XR ---
EXAMINATION TYPE: XR chest 1V DATE OF EXAM: 08/30/2020 COMPARISON: 08/29/2020 INDICATION: Difficulty breathing, short of breath TECHNIQUE: Single frontal view of the chest is obtained. FINDINGS: The heart size is enlarged. The pulmonary vasculature is prominent. Diffuse increased lung markings are present. There is an azygos fissure present, normal variant. IMPRESSION: 1. Findings can be compatible with worsening congestive heart failure. Clinical correlation recommend ed.
[2020-08-30 09:02] LABS: Metamyelocytes % 10 %; Myelocytes % 9 %; Neutrophils % (M) 12 %; Nucleated Red Blood Cells 4 /100 WBC (0-0); Promyelocytes % 8 %; Total Cells Counted 200
--- NOTE | 2020-08-30 09:29 | XR ---
EXAMINATION TYPE: XR abdomen 1V DATE OF EXAM: 08/30/2020 COMPARISON: 09/07/2011 INDICATION: Abdomen distention TECHNIQUE: Single view abdomen supine view FINDINGS: Stomach is distended with air or normal bowel gas is present. Air is within the colon. Psoas margins are normal. No organomegaly is present. IMPRESSION: 1. Stomach distended with air. 2. Abdomen is otherwise unremarkable.
[2020-08-30 10:33] LABS: Glucose,Whole Blood 213 mg/dL (75-99)
[2020-08-30] MEDS: GABAPENTIN 100 MG CAP PO SCH ×3 (10:33→23:26)
[2020-08-30] MEDS: POTASSIUM CHLORIDE ER 20 MEQ TAB.ER PO SCH ×2 (10:34→23:24)
[2020-08-30] MEDS: TAMSULOSIN 0.4 MG CAP.ER.24H PO SCH ×2 (10:34→23:23)
[2020-08-30] MEDS: METOPROLOL TARTRATE 50 MG TAB PO SCH ×3 (10:34→23:24)
[2020-08-30] MEDS: MAGNESIUM OXIDE 400 MG TAB PO SCH (10:34)
[2020-08-30] MEDS ORDERED: PROPOFOL 10 MG/ML 20 ML VIAL IV ONE (10:45)
[2020-08-30] MEDS ORDERED: ROCURONIUM 10 MG/ML (10 ML VIAL) IV ONE (10:45)
[2020-08-30] MEDS: DRONEDARONE 400 MG TAB PO SCH (10:46)
--- NOTE | 2020-08-30 11:01 | PN ---
PROGRESS NOTE Mr. Samson is a 75-year-old male who has history of malignancy, undergoing chemotherapy. He had episode of paroxysmal fibrillation. He is back in atrial fibrillation with rapid ventricular response. He is quite dyspneic requiring BiPAP. He denies any chest pain. He denies any dizziness. He received chemotherapy yesterday. He is quite uncomfortable this morning. He continues to be on Lipitor 10 mg daily, diltiazem 10 mg drip, Lasix 40 mg IV q.12 hours, Multaq 400 mg twice a day, metoprolol 100 mg 3 times a day. PHYSICAL EXAMINATION: Blood pressure 111/70 with a heart rate in the one teens. LUNGS with decreased breath sounds. No wheezes. HEART irregularly irregular S1, S2. No S3. No rub. ABDOMEN: Soft, distended. EXTREMITIES: Trace to 1+ edema. LAB DATA: [place] [address], hemoglobin of 8, platelet count of 79,000. BUN and creatinine of 71 and 1.47. Chest x-ray performed today revealed findings consistent with worsening congestive heart failure. His abdominal x-ray shows distended abdomen. IMPRESSION: 1. Worsening dyspnea with a combination of congestive heart failure, worsening. 2. Malignancy with positive for APRA, receiving chemotherapy. 3. Atrial fibrillation, persistent at this time. 4. Moderate aortic stenosis. 5. Hypertension. 6. Hyperlipidemia. 7. Worsening renal function. 8. Anemia and thrombocytopenia related to malignancy and chemotherapy. RECOMMENDATIONS: From the cardiac standpoint, I will continue on the dose of the beta barbraa. I will stop the Multaq at this time. I will increase the dose of the IV amiodarone. I will obtain an evaluation from Dr. lAlen. Patient may require mechanical ventilation in view of his worsening dyspnea. We will follow his renal function. Unfortunately, the prognosis remains quite guarded. MMODL / IJN: [id number] /
[2020-08-30] MEDS: DILTIAZEM 125 MG in SODIUM CHLORIDE 0.9% 100 ML IV SCH ×2 (11:03→21:48)
[2020-08-30 11:44] LABS: Glucose,Whole Blood 212 mg/dL (75-99)
--- NOTE | 2020-08-30 11:46 | P.PN ---
Subjective Progress Note Date: 08/30/20 Patient has had worsening in his respiratory status overnight. He is currently on BiPAP. He denies any cough. Appetite is diminished. No obvious bleeding. Objective - Vital Signs Vital signs: Vital Signs Temp 98.2 F 08/30/20 08:15 Pulse 170 H 08/30/20 08:15 Resp 28 H 08/30/20 08:15 BP 106/59 08/30/20 08:15 Pulse Ox 88 L 08/30/20 08:15 Intake & Output 08/29/20 08/30/20 08/30/20 18:59 06:59 18:59 Intake Total 402.076 138.564 258.150 Output Total 1900 400 400 Balance -1497.924 -261.436 -141.850 Weight 97 kg Intake: Intake, IV Titration 166.076 138.564 140.150 Amount Diltiazem 125 mg In 123.167 85 125 Sodium Chloride 0.9% 100 ml @ 10 MG/HR 10 mls/hr IV .[id number] ANA Rx#: [id number] Insulin Regular 100 unit 42.909 53.564 15.150 In Sodium Chloride 0.9% 100 ml @ Titrate IV .Q0M ANA Rx#:[id number] Oral 236 118 Output: Urine 1900 400 400 Other: Voiding Method Indwelling Catheter Indwelling Catheter Indwelling Catheter - Constitutional Constitutional Comment(s): Moderate respiratory distress, on BiPAP - EENT Eyes: Present: EOMI ENT: Present: hearing grossly normal, normal oropharynx - Respiratory Respiratory: bilateral: rales, rhonchi - Cardiovascular Rhythm: irregularly irregular Heart sounds: normal: S1, S2 - Gastrointestinal General gastrointestinal: Present: distended, normal bowel sounds, soft - Integumentary Integumentary: Present: normal - Neurologic Neurologic: Present: CNII-XII intact - Musculoskeletal Musculoskeletal: Present: generalized weakness, strength equal bilaterally - Psychiatric Psychiatric: Present: A&O x's 3, appropriate affect - Labs CBC & Chem 7: 08/30/20 07:28 08/30/20 07:28 Labs: Abnormal Lab Results - Last 24 Hours (Table) 08/29/20 08/29/20 08/29/20 Range/Units 08:40 12:58 14:57 WBC 14.6 H (3.8-10.6) k/uL RBC (4.30-5.90) m/uL Hgb (13.0-17.5) gm/dL Hct (39.0-53.0) % RDW (11.5-15.5) % Plt Count (150-450) k/uL Blast Cells % 38 H* % Metamyelocytes # (Man) 1.02 H (0) k/uL Myelocytes # (Manual) 1.31 H (0) k/uL Promyelocytes # (Man) 0.44 H (0) k/uL Blast Cells # (Man) 5.55 H (0) k/uL Plasma Cell # (Manual) 0.15 H (0) k/uL Nucleated RBCs 3 H (0-0) /100 WBC PT (9.0-12.0) sec INR (<1.2) BUN (9-20) mg/dL Creatinine (0.66-1.25) mg/dL Glucose (74-99) mg/dL POC Glucose (mg/dL) 198 H 168 H (75-99) mg/dL Uric Acid (3.5-8.5) mg/dL Calcium (8.4-10.2) mg/dL Phosphorus (2.5-4.5) mg/dL Magnesium (1.6-2.3) mg/dL AST (17-59) U/L 08/29/20 08/29/20 08/29/20 Range/Units 17:07 19:16 20:58 WBC (3.8-10.6) k/uL RBC (4.30-5.90) m/uL Hgb (13.0-17.5) gm/dL Hct (39.0-53.0) % RDW (11.5-15.5) % Plt Count (150-450) k/uL Blast Cells % % Metamyelocytes # (Man) (0) k/uL Myelocytes # (Manual) (0) k/uL Promyelocytes # (Man) (0) k/uL Blast Cells # (Man) (0) k/uL Plasma Cell # (Manual) (0) k/uL Nucleated RBCs (0-0) /100 WBC PT (9.0-12.0) sec INR (<1.2) BUN (9-20) mg/dL Creatinine (0.66-1.25) mg/dL Glucose (74-99) mg/dL POC Glucose (mg/dL) 168 H 211 H 219 H (75-99) mg/dL Uric Acid (3.5-8.5) mg/dL Calcium (8.4-10.2) mg/dL Phosphorus (2.5-4.5) mg/dL Magnesium (1.6-2.3) mg/dL AST (17-59) U/L 08/29/20 08/30/20 08/30/20 Range/Units 22:57 00:56 03:07 WBC (3.8-10.6) k/uL RBC (4.30-5.90) m/uL Hgb (13.0-17.5) gm/dL Hct (39.0-53.0) % RDW (11.5-15.5) % Plt Count (150-450) k/uL Blast Cells % % Metamyelocytes # (Man) (0) k/uL Myelocytes # (Manual) (0) k/uL Promyelocytes # (Man) (0) k/uL Blast Cells # (Man) (0) k/uL Plasma Cell # (Manual) (0) k/uL Nucleated RBCs (0-0) /100 WBC PT (9.0-12.0) sec INR (<1.2) BUN (9-20) mg/dL Creatinine (0.66-1.25) mg/dL Glucose (74-99) mg/dL POC Glucose (mg/dL) 209 H 168 H 178 H (75-99) mg/dL Uric Acid (3.5-8.5) mg/dL Calcium (8.4-10.2) mg/dL Phosphorus (2.5-4.5) mg/dL Magnesium (1.6-2.3) mg/dL AST (17-59) U/L 08/30/20 08/30/20 08/30/20 Range/Units 05:04 06:36 07:28 WBC 20.0 H (3.8-10.6) k/uL RBC 2.52 L (4.30-5.90) m/uL Hgb 8.0 L (13.0-17.5) gm/dL Hct 24.1 L (39.0-53.0) % RDW 17.6 H (11.5-15.5) % Plt Count 79 L (150-450) k/uL Blast Cells % 46 H* % Metamyelocytes # (Man) 2.00 H (0) k/uL Myelocytes # (Manual) 1.80 H (0) k/uL Promyelocytes # (Man) 1.60 H (0) k/uL Blast Cells # (Man) 9.20 H (0) k/uL Plasma Cell # (Manual) (0) k/uL Nucleated RBCs 4 H (0-0) /100 WBC PT (9.0-12.0) sec INR (<1.2) BUN (9-20) mg/dL Creatinine (0.66-1.25) mg/dL Glucose (74-99) mg/dL POC Glucose (mg/dL) 191 H 182 H (75-99) mg/dL Uric Acid (3.5-8.5) mg/dL Calcium (8.4-10.2) mg/dL Phosphorus (2.5-4.5) mg/dL Magnesium (1.6-2.3) mg/dL AST (17-59) U/L 08/30/20 08/30/20 08/30/20 Range/Units 07:28 07:28 08:33 WBC (3.8-10.6) k/uL RBC (4.30-5.90) m/uL Hgb (13.0-17.5) gm/dL Hct (39.0-53.0) % RDW (11.5-15.5) % Plt Count (150-450) k/uL Blast Cells % % Metamyelocytes # (Man) (0) k/uL Myelocytes # (Manual) (0) k/uL Promyelocytes # (Man) (0) k/uL Blast Cells # (Man) (0) k/uL Plasma Cell # (Manual) (0) k/uL Nucleated RBCs (0-0) /100 WBC PT 14.0 H (9.0-12.0) sec INR 1.4 H (<1.2) BUN 71 H (9-20) mg/dL Creatinine 1.47 H (0.66-1.25) mg/dL Glucose 172 H (74-99) mg/dL POC Glucose (mg/dL) 186 H (75-99) mg/dL Uric Acid 8.9 H (3.5-8.5) mg/dL Calcium 8.3 L (8.4-10.2) mg/dL Phosphorus 5.8 H (2.5-4.5) mg/dL Magnesium 3.2 H (1.6-2.3) mg/dL AST 81 H (17-59) U/L 08/30/20 Range/Units 10:31 WBC (3.8-10.6) k/uL RBC (4.30-5.90) m/uL Hgb (13.0-17.5) gm/dL Hct (39.0-53.0) % RDW (11.5-15.5) % Plt Count (150-450) k/uL Blast Cells % % Metamyelocytes # (Man) (0) k/uL Myelocytes # (Manual) (0) k/uL Promyelocytes # (Man) (0) k/uL Blast Cells # (Man) (0) k/uL Plasma Cell # (Manual) (0) k/uL Nucleated RBCs (0-0) /100 WBC PT (9.0-12.0) sec INR (<1.2) BUN (9-20) mg/dL Creatinine (0.66-1.25) mg/dL Glucose (74-99) mg/dL POC Glucose (mg/dL) 213 H (75-99) mg/dL Uric Acid (3.5-8.5) mg/dL Calcium (8.4-10.2) mg/dL Phosphorus (2.5-4.5) mg/dL Magnesium (1.6-2.3) mg/dL AST (17-59) U/L - Imaging and Cardiology Chest x-ray: report reviewed Assessment and Plan (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 However today his respiratory status is significantly worse. WBC is further increased, possibly consistent with ongoing differential syndrome. He also has increase in creatinine and uric acid. - Hold chemo for now till respiratory status is improved. The patient is too unstable in my opinion to continue treatment at this time. - Repeat rasburicase - Continue to monitor coags and blood counts as well as tumor lysis labs Current Visit: Yes Status: Acute Priority: High Code(s): C92.40 - ACUTE PROMYELOCYTIC LEUKEMIA, NOT HAVING ACHIEVED REMISSION SNOMED Code(s): 672988886 (2) Acute pulmonary edema Narrative/Plan: The patient had improved yesterday due to which chemotherapy was resumed. The plan was to resume tretinoin today if he was stable/further improved. However his condition has worsened as noted above. Chest x-ray shows worsening pulmonary infiltrates. Case was discussed with cardiology and his eyes and also reviewed. The patient has been in negative balance fairly consistently over the past few days. Therefore at this time fluid overload appears to be much less likely according to cardiology. In this situation ongoing defecation syndrome, especially with increasing white count appears to be more likely. The patient will therefore be continued on IV steroids and tretinoin continue to be held. Pulmonary medicine has been consulte - Continue aggressive supportive care. The patient is an appropriate candidate for intubation if needed, as differentiation syndrome is usually reversible with ongoing steroid therapy and underlying acute leukemia is highly curable. Current Visit: No Status: Acute Code(s): J81.0 - ACUTE PULMONARY EDEMA SNOMED Code(s): 03508158
[2020-08-30 12:43] LABS: ABG Base Excess -0.8 mmol/L; ABG HCO3 24 mmol/L (21-25); ABG Oxygen Saturation 99.8 % (94-97); ABG PCO2 36 mmHg (35-45); ABG PH 7.42 (7.35-7.45); ABG PO2 148 mmHg (83-108); ABG TCO2 25 mmol/L (19-24); Allen Test Performed? Yes
[2020-08-30 12:48] LABS: Glucose,Whole Blood 202 mg/dL (75-99)
[2020-08-30] MEDS ORDERED: RASBURICASE 6 MG in SODIUM CHLORIDE 0.9% 46 ML IV ONE (13:00)
[2020-08-30 14:00] LABS: Glucose,Whole Blood 197 mg/dL (75-99)
[2020-08-30] MEDS: PIPERACILLIN-TAZOBACTAM 3.375 GM in SODIUM CHLORIDE 0.9% 100 ML IVPB SCH ×2 (14:44→23:28)
--- NOTE | 2020-08-30 14:48 | P.PN ---
Progress Note - Text Progress Note Date: 08/30/20 Presenting complaint: Tired Interval history: This is a patient who was recently diagnosed with promyelocytic leukemia. On chemotherapy. Went to CHF and atrial fibrillation with rapid ventricular rate. Transferred to telemetry floor. There was concern by oncology about patient having differentiation syndrome. Patient was started on IV dexamethasone. Put on a Cardizem drip. Requiring high flow oxygen. Today-patient became more short of breath today. Requiring a BiPAP this morning. Quite a short of breath at rest. They moved to ICU. Review of systems: Was done for constitutional, cardiovascular, GI, pulmonary. relevant finding as above Active Medications Hydrocodone Bitart/Acetaminophen (Hydrocodone/Apap 10-325mg 1 Each Tab) 1 each PO QID PRN PRN Reason: Pain Last Admin: 08/30/20 04:18 Dose: 1 each Documented by: Al Hydroxide/Mg Hydroxide (Mag Hydrox/Al Hydrox/Simeth 30 Ml Cup) 30 ml PO Q4HR PRN PRN Reason: GI Upset Last Admin: 08/29/20 02:27 Dose: 30 ml Documented by: Alprazolam (Alprazolam 0.25 Mg Tab) 0.25 mg PO TID PRN PRN Reason: Anxiety Last Admin: 08/29/20 09:28 Dose: 0.25 mg Documented by: Atorvastatin Calcium (Atorvastatin 10 Mg Tab) 10 mg PO HS [facility] Last Admin: 08/29/20 21:19 Dose: 10 mg Documented by: Dexamethasone Sodium Phosphate (Dexamethasone Sod Phosphate 10 Mg/Ml 1 Ml Vial) 10 mg IV BID [facility] Last Admin: 08/30/20 08:30 Dose: 10 mg Documented by: Furosemide (Furosemide 10 Mg/Ml 4 Ml Vial) 40 mg IV Q12HR [facility] Last Admin: 08/30/20 08:30 Dose: 40 mg Documented by: Gabapentin (Gabapentin 100 Mg Cap) 100 mg PO TID [facility] Last Admin: 08/30/20 10:33 Dose: Not Given Documented by: Insulin Human Regular 100 unit (/ Sodium Chloride) 101 mls @ 0 mls/hr IV .Q0M [facility]; Protocol Last Titration: 08/30/20 14:05 Dose: 4 units/hr, 4.04 mls/hr Documented by: Diltiazem HCl 125 mg/ Sodium (Chloride) 125 mls @ 15 mls/hr IV .Q8H20M [facility] Last Admin: 08/30/20 11:03 Dose: 10 mg/hr, 10 mls/hr Documented by: Piperacillin Sod/Tazobactam (Sod 3.375 gm/ Sodium Chloride) 100 mls @ 25 mls/hr IVPB Q12HR [facility] Magnesium Oxide (Magnesium Oxide 400 Mg Tab) 400 mg PO DAILY [facility] Last Admin: 08/30/20 10:34 Dose: Not Given Documented by: Metformin HCl (Metformin 500 Mg Tab) 500 mg PO W/BRKFST [facility] Last Admin: 08/30/20 06:23 Dose: 500 mg Documented by: Metformin HCl (Metformin 500 Mg Tab) 1,000 mg PO W/SUPPER [facility] Last Admin: 08/29/20 17:33 Dose: 1,000 mg Documented by: Metoprolol Tartrate (Metoprolol Tartrate 50 Mg Tab) 100 mg PO TID [facility] Last Admin: 08/30/20 10:34 Dose: Not Given Documented by: Miscellaneous Information (Potassium Replacement Protocol 1 Each Misc) 1 each MISCELLANE DAILY PRN; Protocol PRN Reason: Per Protocol Miscellaneous Information (Magnesium Replacement Protocol 1 Each Misc) 1 each MISCELLANE DAILY PRN; Protocol PRN Reason: Per Protocol Pantoprazole Sodium (Pantoprazole 40 Mg Tablet) 40 mg PO 0730,2100 [facility] Last Admin: 08/30/20 06:23 Dose: 40 mg Documented by: Potassium Chloride (Potassium Chloride Er 20 Meq Tab.Er) 20 meq PO BID [facility] Last Admin: 08/30/20 10:34 Dose: Not Given Documented by: Tamsulosin HCl (Tamsulosin 0.4 Mg Cap.Er.24h) 0.4 mg PO BID [facility] Last Admin: 08/30/20 10:34 Dose: Not Given Documented by: On examination: VITAL SIGNS: 98.1, 117, 19, 117/74, 100% on a BiPAP GENERAL APPEARANCE: Laying in bed,short of breath, BiPAP EYES: Pupils equal. Conjunctiva normal. NECK: JVD unable to assess. Mass not palpable. RESPIRATORY: Respiratory effort increased. , decreased breath sounds. wheezing , coarse crackles, accessory muscles a working CARDIOVASCULAR: Heart sounds irregular some edema.. ABDOMEN: Soft. Liver and spleen not palpable. No tenderness. No mass palpable. PSYCHIATRY: AO - times three. Mood and affect anxious INVESTIGATIONS, reviewed in the clinical context: White count 20 hemoglobin 8.0 platelets 79 blast cells 46 potassium 4.5 creatinine 1.47 Chest x-ray film personally reviewed by me shows worsening infiltrates Previous testing White count 1.5 hemoglobin 8.3 platelets 52 blast cells 30% Potassium 3.8 creatinine 1.24 blood glucose 276 lactic acid 3.5 uric acid 1.3 Chest x-ray film personally reviewed by me-pulmonary edema 2-D echocardiogram from last month showed EF 60-65% Assessment: -Persistent atrial flutter-fibrillation with a rapid ventricular rate, uncontrolled -Acute congestive heart failure exacerbation from diastolic dysfunction EF 60- 65%, precipitated by atrial flutter fibrillation with a rapid ventricular rate- slow to respond -Acute hypoxic respiratory failure still requiring high flow oxygen, worsening- requiring BiPAP - differential syndrome with pulmonary infiltrates, hypoxia requiring IV steroids-worsening -Diabetes mellitus type 2, uncontrolled with hyperglycemia secondary to steroids -Essential hypertension -Hyperlipidemia -Primary osteoarthritis -Obstructive sleep apnea uses CPAP -Childhood polio -Obstructive sleep apnea uses CPAP -Primary osteoarthritis -Promyelocytic leukemia-started on chemotherapy -Acute kidney injury, ATN versus prerenal Plan: Patient has been on Cardizem drip. Because of Decadron half life, dozing changed to 5 mg every 6, insulin dose to continue, on Lopressor, IV Zosyn. [employer] consulted.
[2020-08-30 14:56] LABS: Glucose,Whole Blood 180 mg/dL (75-99)
--- NOTE | 2020-08-30 14:57 | CONS ---
CONSULTATION PULMONARY/CRITICAL CARE CONSULTATION: DATE OF SERVICE: 08/30/2020 This a patient whom we were asked to see by Dr. Vuong actually. The patient was admitted to the hospital on August 24. The patient apparently came in to the emergency room with complaints of shortness of breath and difficulty breathing. He does have a history of chronic atrial fibrillation, hypertension, hyperlipidemia, and diabetes. The patient apparently was recently discovered to have acute leukemia. The patient was sent in for chemotherapy. The patient was seen by Cardiology because of paroxysmal atrial fibrillation. We were asked to see the patient because of respiratory decline and difficulty. The patient apparently has received chemotherapy in the form of arsenic trioxide and Atra. The patient apparently is having a reaction to the chemotherapy and it is manifested primarily by bilateral lung infiltrates, hypoxemia, and respiratory distress. When we went to see the patient in consultation, he was on BiPAP at 14/5 and 90%. He was getting a Cardizem drip at 10 mg an hour and insulin drip of 5 units an hour. The Cardizem was for his paroxysmal atrial fibrillation. He is also getting saline at 20 mL an hour. His ventricular response rate was 120. His saturations were 99%. His blood pressure was 117/74. A blood gas was ordered and his blood gases on the BiPAP at 90% showed a pO2 of 148, pCO2 of 36, pH of 7.42. Because of his increased respiratory rate and obvious distress, we decided to move him to the intensive care unit for further monitoring and evaluation. PAST MEDICAL HISTORY: Apparently positive for atrial fibrillation, acute leukemia, CVA, diabetes, hyperlipidemia, hypertension, DJD, sleep apnea syndrome, childhood polio, psoriasis, and BPH. SURGICAL HISTORY: Includes cardiac ablation, heart catheterization, tonsillectomy, epidurals for pain control, bilateral cataract surgery and cardioversion x2. SOCIAL HISTORY: Negative for tobacco use. Denies any alcohol or illicit drug use. FAMILY HISTORY: Positive for bladder cancer and myocardial infarction. CURRENT HOME MEDICATIONS: Include Alfuzosin, Lipitor, Neurontin, Glucophage, Lopressor, Coumadin, Multaq, [place], Protonix, Norvasc, metformin, Lasix, and potassium. ALLERGIES: Denied. FAMILY HISTORY: Positive for a father with bladder cancer and mother with myocardial infarction. REVIEW OF SYSTEMS: CONSTITUTIONAL: Weakness. NEUROLOGIC: Negative. HEENT: Negative. CARDIOVASCULAR: Negative say for palpitations. PULMONARY: Shortness of breath, cough. GI: Negative. : Negative. RHEUMATOLOGIC: Negative. IMMUNOLOGIC: Negative. ENDOCRINOLOGIC: Negative. DERMATOLOGIC: Negative. PHYSICAL EXAMINATION: VITAL SIGNS: Current vital signs are reviewed. Temperature is 98.1, heart rate 120 and he is in atrial fibrillation. Respiratory rate is in the mid 20s. Blood pressure 117/74, mean 88, and saturations are 100% on BiPAP. Appears mildly tachypneic and dyspneic. Some conversational dyspnea. No use of accessory muscles or audible wheezing. HEENT: Examination is grossly unremarkable. BiPAP mask in place. NECK: Supple. Full range of motion. CARDIOVASCULAR: Examination reveals a regular rhythm rate. Heart rate 120. He is currently in atrial fibrillation. LUNGS: Reveal diffuse coarse rhonchi. Breath sounds are diminished. No wheezes. No crackles. ABDOMEN: Obese. Bowel sounds are not noted. EXTREMITIES are intact. No edema. SKIN: Without rash. NEUROLOGIC: Examination is nonfocal. LABS: Reviewed. Today's labs include a white count 20,000, hemoglobin 8, hematocrit 24.1, platelet count of 79,000. His PT was 14, INR 1.4 and PTT 23.2. Blood gases show pO2 of 148, pCO2 of 36 and a pH of 7.42. Sodium, potassium, chloride and CO2 normal. Anion gap is 10. BUN and creatinine were 71 and 1.47 up from 54, 1.3. Uric acid is up to 8.9, phosphorus 8.3, magnesium 3.2, LDH was 5244. Microbiology is pending or negative. Chest x-ray done on August 30 compared to one done August 29 showed diffuse bilateral infiltrates, which may relate to fluid overload, acute lung injury or pneumonia. Current medications reviewed. He is currently on Xanax, Lipitor, Cardizem drip at 10 mg an hour, Decadron, Lasix gabapentin, [place], saline IV, insulin IV drip, Maalox, Mag- Ox, magnesium replacement, metformin, Zofran, Protonix, potassium, Rasburicase, and Flomax. ASSESSMENT: 1. Acute hypoxemic respiratory failure, which may relate to acute lung injury, fluid overload, and/or pneumonia. 2. Paroxysmal atrial fibrillation, currently on a Cardizem drip. 3. Acute leukemia ((APL) status post chemotherapy with arsenic trioxide ([place]ID[place]) and ATRA (retinoic acid). 4. Rule out differentiation syndrome (retinoic acid syndrome), which may explain patients respiratory worsening. 5. History of atrial fibrillation. 6. History of cerebrovascular accident. 7. History of diabetes mellitus. 8. History of hyperlipidemia. 9. History of hypertension. 10.Degenerative joint disease. 11.Benign prostatic hypertrophy. 12.Psoriasis. 13.History of sleep apnea syndrome. 14.History of childhood polio. PLAN: Currently, the patient is moved to the ICU. We are watching this carefully. Blood gases were reasonable. The patient has been started on corticosteroids as per Oncology. We will continue to monitor the patient closely. The patient may require intubation and mechanical ventilation should he develop respiratory muscle fatigue, worsening hypoxemia, or worsening hypercapnia. No additional recommendations are made. We will add some antibiotics. MMGARCIAL / IJN: [id number] / [place]
[2020-08-30] MEDS: DEXAMETHASONE SOD PHOSPHATE 4 MG/ML 1 ML VIAL IV SCH ×2 (15:06→23:24)
[2020-08-30 17:11] LABS: Glucose,Whole Blood 207 mg/dL (75-99)
[2020-08-30 18:41] LABS: Glucose,Whole Blood 179 mg/dL (75-99)
[2020-08-30] MEDS: INSULIN REGULAR 100 UNIT in SODIUM CHLORIDE 0.9% 100 ML IV SCH (19:02)
[2020-08-30 20:11] LABS: ABG Base Excess -1.6 mmol/L; ABG HCO3 23 mmol/L (21-25); ABG PCO2 36 mmHg (35-45); ABG PH 7.41 (7.35-7.45); ABG TCO2 24 mmol/L (19-24); Allen Test Performed? Yes
[2020-08-30 20:14] LABS: ABG PO2 56 mmHg (83-108)
[2020-08-30 20:20] LABS: Glucose,Whole Blood 208 mg/dL (75-99)
[2020-08-30] MEDS ORDERED: propofoL 100 ML IV ONE (20:21)
[2020-08-30] MEDS ORDERED: NOREPINEPHRIN 4 MG-0.9% NS PMX 4 MG/250 ML ML IV ONE (20:24)
[2020-08-30] MEDS: NOREPINEPHRINE 4 MG in SODIUM CHLORIDE 0.9% 250 ML IV SCH (20:30)
[2020-08-30 21:07] LABS: ABG Base Excess -2.5 mmol/L; ABG HCO3 24 mmol/L (21-25); ABG Oxygen Saturation 90.8 % (94-97); ABG PCO2 52 mmHg (35-45); ABG PH 7.28 (7.35-7.45); ABG PO2 70 mmHg (83-108); ABG TCO2 26 mmol/L (19-24); Allen Test Performed? Yes
--- NOTE | 2020-08-30 21:16 | XR ---
EXAMINATION TYPE: XR chest 1V portable DATE OF EXAM: 08/30/2020 COMPARISON: Today HISTORY: Short of breath TECHNIQUE: FINDINGS: There is endotracheal tube that is almost touching the raine. There is extensive bilateral patchy pulmonary airspace infiltrates. There is nasogastric tube. The tip is at the gastroesophageal junction. There are chest leads. IMPRESSION: Patchy bilateral pulmonary airspace infiltrates unchanged compared to exam this morning. Endotracheal tube is low and should BE pulled back 4 cm. The NG tube is not clearly in the stomach.
--- NOTE | 2020-08-30 21:23 | XR ---
EXAMINATION TYPE: XR chest 1V portable DATE OF EXAM: 08/30/2020 COMPARISON: Today HISTORY: Tube placement TECHNIQUE: FINDINGS: The endotracheal tube is 3 cm from the raine. There is diffuse pulmonary edema. Nasogastri c tube has the tip in the distal esophagus. There are chest leads. There is no definite pleural effus ion. IMPRESSION: Endotracheal tube is in improved position. NG tube is in the distal esophagus unchanged. Pulmonary edema unchanged.
[2020-08-30] MEDS: ATORVASTATIN 10 MG TAB PO SCH (23:24)
[2020-08-30] MEDS: CHLORHEXIDINE GLUCONATE 15 ML CUP MUCOUS MEM SCH (23:26)
[2020-08-31 00:02] LABS: Glucose,Whole Blood 224 mg/dL (75-99)
--- NOTE | 2020-08-31 00:35 | XR ---
EXAMINATION TYPE: XR chest 1V portable DATE OF EXAM: 08/31/2020 COMPARISON: 08/30/2020 HISTORY: Check tube placement TECHNIQUE: FINDINGS: There is nasogastric tube with the tip probably in the gastric fundus. The tip is well into the stomach. There is patchy bilateral pulmonary airspace infiltrates. The endotracheal tube is 5.5 cm from the raine. There is no pleural effusion. IMPRESSION: Bilateral patchy pulmonary infiltrates appear the same or slightly improved compared to t he exam 4 hours ago.
[2020-08-31 02:37] LABS: Glucose,Whole Blood 251 mg/dL (75-99)
[2020-08-31 04:12] LABS: Glucose,Whole Blood 235 mg/dL (75-99)
[2020-08-31 04:23] LABS: Anisocytosis Slight; HCT 22.6 % (39.0-53.0); HGB 7.8 gm/dL (13.0-17.5); MCH 33.3 pg (25.0-35.0); MCHC 34.6 g/dL (31.0-37.0); MCV 96.1 fL (80.0-100.0); Macrocytosis Slight; Mean Platelet Volume 10.3; Poikilocytosis Slight; RBC 2.35 m/uL (4.30-5.90); WBC 24.4 k/uL (3.8-10.6)
[2020-08-31 04:28] LABS: Platelet Count 88 k/uL (150-450)
[2020-08-31 04:55] LABS: Albumin 3.4 g/dL (3.5-5.0); Calcium 7.8 mg/dL (8.4-10.2); Phosphorus 5.1 mg/dL (2.5-4.5); Potassium 4.3 mmol/L (3.5-5.1); Total Bilirubin 0.9 mg/dL (0.2-1.3); Total Protein 6.2 g/dL (6.3-8.2); Uric Acid 1.8 mg/dL (3.5-8.5)
[2020-08-31 05:01] LABS: INR 1.4 (<1.2); Partial Thromboplastin Time 22.2 sec (22.0-30.0); Prothrombin Time 14.1 sec (9.0-12.0)
[2020-08-31 05:28] LABS: ABG Base Excess 1.4 mmol/L; ABG HCO3 26 mmol/L (21-25); ABG Oxygen Saturation 98.6 % (94-97); ABG PCO2 40 mmHg (35-45); ABG PH 7.42 (7.35-7.45); ABG PO2 104 mmHg (83-108); ABG TCO2 27 mmol/L (19-24); Allen Test Performed? Yes
[2020-08-31] MEDS: DEXAMETHASONE SOD PHOSPHATE 4 MG/ML 1 ML VIAL IV SCH ×4 (06:10→23:10)
[2020-08-31] MEDS: METOPROLOL TARTRATE 50 MG TAB PO SCH ×3 (06:19→20:23)
[2020-08-31 06:28] LABS: Glucose,Whole Blood 215 mg/dL (75-99)
[2020-08-31] MEDS: NOREPINEPHRINE 4 MG in SODIUM CHLORIDE 0.9% 250 ML IV SCH (06:28)
[2020-08-31] MEDS: DILTIAZEM 125 MG in SODIUM CHLORIDE 0.9% 100 ML IV SCH ×3 (07:42→23:08)
--- NOTE | 2020-08-31 08:33 | XR ---
EXAMINATION TYPE: XR chest 1V portable DATE OF EXAM: 08/31/2020 COMPARISON: 08/31/2020 HISTORY: Tube placement TECHNIQUE: Single frontal view of the chest is obtained. FINDINGS: Bilateral diffuse multifocal areas of infiltrate with small effusion on the right. Heart s ize stable. ET and NG tubes stable. No pneumothorax. No significant interval change. Arthropathy of t he shoulders. IMPRESSION: 1. Bilateral diffuse infiltrates. Correlate for pneumonia. Otherwise consider CHF.
[2020-08-31] MEDS ORDERED: CISATRACURIUM 2 MG/ML 5 ML VIAL IV ONE (09:38)
[2020-08-31] MEDS ORDERED: METOPROLOL TARTRATE 50 MG TAB PO STA (09:56)
--- NOTE | 2020-08-31 10:21 | XR ---
EXAMINATION TYPE: XR chest 1V DATE OF EXAM: 08/31/2020 COMPARISON: 08/31/2020 HISTORY: Central line placement TECHNIQUE: Single frontal view of the chest is obtained. FINDINGS: ET and NG tube stable. Left-sided IJ line seen with the tip overlying the SVC. No pneumoth orax. Multifocal areas of consolidation seen with small effusions. Arthropathy of the right shoulder. Heart size stable and normal. IMPRESSION: 1. Diffuse bilateral areas of infiltrate correlate for multifocal pneumonia versus pulmonary edema. 2. Central line appears with the tip at the SVC with no sizable pneumothorax.
[2020-08-31] MEDS ORDERED: INSULIN REGULAR BOLUS (FROM DRIP BAG) IV PRN (10:25)
--- NOTE | 2020-08-31 10:30 | P.PN ---
<Chester,Flavia Guillen - Last Filed: 08/31/20 10:17> Subjective This is a pleasant 75-year-old male currently undergoing chemotherapy. He is in the intensive care unit currently intubated on levophed. He continues to be in atrial fibrillation with rapid ventricular response. He is sedated on propofol. Blood pressure 89/51 heart rate 135. Laboratory data reviewed WBC 24.4, hemoglobin 7.8, pH 7.42 CO2 40, sodium 138, potassium 4.3, creatinine 1.64. Currently maintained on atorvastatin 10 mg at bedtime, IV Cardizem infusi on 15 mg per hour, Lasix 40 mg IV twice a day, Lopressor 100 mg 3 times a day, norepinephrine infusion and propofol for sedation. He is maintaining a negative fluid balance. Repeat chest xray this morning bilateral patchy pulmonary infiltrates. He is scheduled to undergo bronchoscopy and central line placement this morning. GENERAL: No acute distress. NECK: Supple without JVD or thyromegaly. LUNGS: Breath sounds clear to auscultation bilaterally. Respiration equal and unlabored. No wheezes, rales or rhonchi. Diminished. HEART: Irregular and rapid rate and rhythm with systolic ejection murmur at the base, no rubs or gallops. S1 and S2 heard. EXTREMITIES: Normal range of motion, no edema. No clubbing or cyanosis. Peripheral pulses intact. ASSESSMENT Paroxysmal atrial fibrillation with rapid ventricular response. Status post cardioversion 2018 Acute on chronic diastolic heart failure, improved Aortic stenosis Hypertension Dyslipidemia Diabetes mellitus PLAN Given his hypotension requiring levophed we recommend to discontinue IV lasix. No JVD, lower extremity swelling or rales in the lungs. Prognosis guarded, further recommendations to follow. Nurse Practitioner note has been reviewed, I agree with a documented findings and plan of care. Patient was seen and examined. Objective - Vital Signs Vital signs: Vital Signs Temp 98.2 F 08/31/20 04:00 Pulse 135 H 08/31/20 07:00 Resp 28 H 08/31/20 07:00 BP 108/70 08/31/20 01:15 Pulse Ox 95 08/31/20 07:00 Intake & Output 08/30/20 08/31/20 08/31/20 18:59 06:59 18:59 Intake Total 660.436 994.125 175.25 Output Total 700 1500 300 Balance -39.564 -505.875 -124.75 Weight 98.7 kg Intake: IV 370 370 20 0.9 120 220 20 Diltiazem 125 mg In 50 50 Sodium Chloride 0.9% 100 ml @ 15 MG/HR 15 mls/hr IV .Q8H20M [facility] Rx#: [id number] Piperacillin-Tazobactam 3 100 100 .375 gm In Sodium Chloride 0.9% 100 ml @ 25 mls/hr IVPB Q12HR [facility] Rx #:[id number] Rasburicase 6 mg In 100 Sodium Chloride 0.9% 46 ml @ 100 mls/hr IV ONCE ONE Rx#:[id number] Intake, IV Titration 172.436 624.125 155.25 Amount Diltiazem 125 mg In 125 169.667 55.25 Sodium Chloride 0.9% 100 ml @ 15 MG/HR 15 mls/hr IV .Q8H20M [facility] Rx#: [id number] Insulin Regular 100 unit 47.436 67.889 In Sodium Chloride 0.9% 100 ml @ Titrate IV .Q0M [facility] Rx#:[id number] Norepinephrine 4 mg In 227.593 Sodium Chloride 0.9% 250 ml @ 0.05 MCG/KG/MIN 18. 479 mls/hr IV .[id number] [facility] Rx#:[id number] propofoL 1,000 mg In 158.976 100 Empty Bag 1 bag @ Titrate IV .Q0M [facility] Rx#: [id number] Oral 118 Output: Gastric Drainage 100 Urine 700 1500 200 Other: Voiding Method Indwelling Catheter Indwelling Catheter # Voids 350 ABP, PAP, CO, CI - Last Documented Arterial Blood Pressure 89/51 - Labs CBC & Chem 7: 08/31/20 04:10 08/31/20 04:10 Labs: Abnormal Lab Results - Last 24 Hours (Table) 08/30/20 08/30/20 08/30/20 Range/Units 10:31 11:38 12:43 WBC (3.8-10.6) k/uL RBC (4.30-5.90) m/uL Hgb (13.0-17.5) gm/dL Hct (39.0-53.0) % RDW (11.5-15.5) % Plt Count (150-450) k/uL PT (9.0-12.0) sec INR (<1.2) ABG pH (7.35-7.45) ABG pCO2 (35-45) mmHg ABG pO2 148 H (83-108) mmHg ABG HCO3 (21-25) mmol/L ABG Total CO2 25 H (19-24) mmol/L ABG O2 Saturation 99.8 H (94-97) % BUN (9-20) mg/dL Creatinine (0.66-1.25) mg/dL Glucose (74-99) mg/dL POC Glucose (mg/dL) 213 H 212 H (75-99) mg/dL Uric Acid (3.5-8.5) mg/dL Calcium (8.4-10.2) mg/dL Phosphorus (2.5-4.5) mg/dL AST (17-59) U/L Total Protein (6.3-8.2) g/dL Albumin (3.5-5.0) g/dL 08/30/20 08/30/20 08/30/20 Range/Units 12:45 13:58 14:54 WBC (3.8-10.6) k/uL RBC (4.30-5.90) m/uL Hgb (13.0-17.5) gm/dL Hct (39.0-53.0) % RDW (11.5-15.5) % Plt Count (150-450) k/uL PT (9.0-12.0) sec INR (<1.2) ABG pH (7.35-7.45) ABG pCO2 (35-45) mmHg ABG pO2 (83-108) mmHg ABG HCO3 (21-25) mmol/L ABG Total CO2 (19-24) mmol/L ABG O2 Saturation (94-97) % BUN (9-20) mg/dL Creatinine (0.66-1.25) mg/dL Glucose (74-99) mg/dL POC Glucose (mg/dL) 202 H 197 H 180 H (75-99) mg/dL Uric Acid (3.5-8.5) mg/dL Calcium (8.4-10.2) mg/dL Phosphorus (2.5-4.5) mg/dL AST (17-59) U/L Total Protein (6.3-8.2) g/dL Albumin (3.5-5.0) g/dL 08/30/20 08/30/20 08/30/20 Range/Units 17:10 18:39 20:08 WBC (3.8-10.6) k/uL RBC (4.30-5.90) m/uL Hgb (13.0-17.5) gm/dL Hct (39.0-53.0) % RDW (11.5-15.5) % Plt Count (150-450) k/uL PT (9.0-12.0) sec INR (<1.2) ABG pH (7.35-7.45) ABG pCO2 (35-45) mmHg ABG pO2 56 L* (83-108) mmHg ABG HCO3 (21-25) mmol/L ABG Total CO2 (19-24) mmol/L ABG O2 Saturation 88.0 L (94-97) % BUN (9-20) mg/dL Creatinine (0.66-1.25) mg/dL Glucose (74-99) mg/dL POC Glucose (mg/dL) 207 H 179 H (75-99) mg/dL Uric Acid (3.5-8.5) mg/dL Calcium (8.4-10.2) mg/dL Phosphorus (2.5-4.5) mg/dL AST (17-59) U/L Total Protein (6.3-8.2) g/dL Albumin (3.5-5.0) g/dL 08/30/20 08/30/20 08/31/20 Range/Units 20:18 21:05 00:01 WBC (3.8-10.6) k/uL RBC (4.30-5.90) m/uL Hgb (13.0-17.5) gm/dL Hct (39.0-53.0) % RDW (11.5-15.5) % Plt Count (150-450) k/uL PT (9.0-12.0) sec INR (<1.2) ABG pH 7.28 L (7.35-7.45) ABG pCO2 52 H (35-45) mmHg ABG pO2 70 L (83-108) mmHg ABG HCO3 (21-25) mmol/L ABG Total CO2 26 H (19-24) mmol/L ABG O2 Saturation 90.8 L (94-97) % BUN (9-20) mg/dL Creatinine (0.66-1.25) mg/dL Glucose (74-99) mg/dL POC Glucose (mg/dL) 208 H 224 H (75-99) mg/dL Uric Acid (3.5-8.5) mg/dL Calcium (8.4-10.2) mg/dL Phosphorus (2.5-4.5) mg/dL AST (17-59) U/L Total Protein (6.3-8.2) g/dL Albumin (3.5-5.0) g/dL 08/31/20 08/31/20 08/31/20 Range/Units 02:35 04:10 04:10 WBC 24.4 H (3.8-10.6) k/uL RBC 2.35 L (4.30-5.90) m/uL Hgb 7.8 L (13.0-17.5) gm/dL Hct 22.6 L (39.0-53.0) % RDW 18.0 H (11.5-15.5) % Plt Count 88 L (150-450) k/uL PT (9.0-12.0) sec INR (<1.2) ABG pH (7.35-7.45) ABG pCO2 (35-45) mmHg ABG pO2 (83-108) mmHg ABG HCO3 (21-25) mmol/L ABG Total CO2 (19-24) mmol/L ABG O2 Saturation (94-97) % BUN 72 H (9-20) mg/dL Creatinine 1.64 H (0.66-1.25) mg/dL Glucose 222 H (74-99) mg/dL POC Glucose (mg/dL) 251 H (75-99) mg/dL Uric Acid 1.8 L (3.5-8.5) mg/dL Calcium 7.8 L (8.4-10.2) mg/dL Phosphorus 5.1 H (2.5-4.5) mg/dL AST 95 H (17-59) U/L Total Protein 6.2 L (6.3-8.2) g/dL Albumin 3.4 L (3.5-5.0) g/dL 08/31/20 08/31/20 08/31/20 Range/Units 04:10 04:10 05:25 WBC (3.8-10.6) k/uL RBC (4.30-5.90) m/uL Hgb (13.0-17.5) gm/dL Hct (39.0-53.0) % RDW (11.5-15.5) % Plt Count (150-450) k/uL PT 14.1 H (9.0-12.0) sec INR 1.4 H (<1.2) ABG pH (7.35-7.45) ABG pCO2 (35-45) mmHg ABG pO2 (83-108) mmHg ABG HCO3 26 H (21-25) mmol/L ABG Total CO2 27 H (19-24) mmol/L ABG O2 Saturation 98.6 H (94-97) % BUN (9-20) mg/dL Creatinine (0.66-1.25) mg/dL Glucose (74-99) mg/dL POC Glucose (mg/dL) 235 H (75-99) mg/dL Uric Acid (3.5-8.5) mg/dL Calcium (8.4-10.2) mg/dL Phosphorus (2.5-4.5) mg/dL AST (17-59) U/L Total Protein (6.3-8.2) g/dL Albumin (3.5-5.0) g/dL 08/31/20 Range/Units 06:26 WBC (3.8-10.6) k/uL RBC (4.30-5.90) m/uL Hgb (13.0-17.5) gm/dL Hct (39.0-53.0) % RDW (11.5-15.5) % Plt Count (150-450) k/uL PT (9.0-12.0) sec INR (<1.2) ABG pH (7.35-7.45) ABG pCO2 (35-45) mmHg ABG pO2 (83-108) mmHg ABG HCO3 (21-25) mmol/L ABG Total CO2 (19-24) mmol/L ABG O2 Saturation (94-97) % BUN (9-20) mg/dL Creatinine (0.66-1.25) mg/dL Glucose (74-99) mg/dL POC Glucose (mg/dL) 215 H (75-99) mg/dL Uric Acid (3.5-8.5) mg/dL Calcium (8.4-10.2) mg/dL Phosphorus (2.5-4.5) mg/dL AST (17-59) U/L Total Protein (6.3-8.2) g/dL Albumin (3.5-5.0) g/dL <Archie Galvez - Last Filed: 08/31/20 14:19> Subjective Agree with assessment and plan above. Patient with leukocytosis and patchy infiltrates. Appears near euvolemic and would hold diuretics given requiring Levophed. Attempt to rate control. If central line placed, monitor CVP. Mild to moderate by prior echoes. Continue to monitor. Objective - Vital Signs Vital signs: Vital Signs Temp 98.2 F 08/31/20 04:00 Pulse 135 H 08/31/20 07:00 Resp 28 H 08/31/20 07:00 BP 108/70 08/31/20 01:15 Pulse Ox 95 08/31/20 07:00 Intake & Output 08/30/20 08/31/20 08/31/20 18:59 06:59 18:59 Intake Total 660.436 994.125 292.688 Output Total 700 1500 300 Balance -39.564 -505.875 -7.312 Weight 98.7 kg 98.7 kg Intake: IV 370 370 20 0.9 120 220 20 Diltiazem 125 mg In 50 50 Sodium Chloride 0.9% 100 ml @ 15 MG/HR 15 mls/hr IV .Q8H20M [facility] Rx#: [id number] Piperacillin-Tazobactam 3 100 100 .375 gm In Sodium Chloride 0.9% 100 ml @ 25 mls/hr IVPB Q12HR [facility] Rx #:[id number] Rasburicase 6 mg In 100 Sodium Chloride 0.9% 46 ml @ 100 mls/hr IV ONCE ONE Rx#:[id number] Intake, IV Titration 172.436 624.125 272.688 Amount Diltiazem 125 mg In 125 169.667 55.25 Sodium Chloride 0.9% 100 ml @ 15 MG/HR 15 mls/hr IV .Q8H20M [facility] Rx#: [id number] Insulin Regular 100 unit 26.210 In Sodium Chloride 0.9% 100 ml @ Per Protocol IV .Q0M [facility] Rx#:[id number] Insulin Regular 100 unit 47.436 67.889 In Sodium Chloride 0.9% 100 ml @ Titrate IV .Q0M [facility] Rx#:[id number] Norepinephrine 4 mg In 227.593 Sodium Chloride 0.9% 250 ml @ 0.05 MCG/KG/MIN 18. 479 mls/hr IV .[id number] [facility] Rx#:[id number] propofoL 1,000 mg In 158.976 191.228 Empty Bag 1 bag @ Titrate IV .Q0M [facility] Rx#: [id number] Oral 118 Output: Gastric Drainage 100 Urine 700 1500 200 Other: Voiding Method Indwelling Catheter Indwelling Catheter # Voids 350 ABP, PAP, CO, CI - Last Documented Arterial Blood Pressure 89/51 - Labs CBC & Chem 7: 08/31/20 04:10 08/31/20 11:18 Labs: Abnormal Lab Results - Last 24 Hours (Table) 08/30/20 08/30/20 08/30/20 Range/Units 14:54 17:10 18:39 WBC (3.8-10.6) k/uL RBC (4.30-5.90) m/uL Hgb (13.0-17.5) gm/dL Hct (39.0-53.0) % RDW (11.5-15.5) % Plt Count (150-450) k/uL PT (9.0-12.0) sec INR (<1.2) ABG pH (7.35-7.45) ABG pCO2 (35-45) mmHg ABG pO2 (83-108) mmHg ABG HCO3 (21-25) mmol/L ABG Total CO2 (19-24) mmol/L ABG O2 Saturation (94-97) % BUN (9-20) mg/dL Creatinine (0.66-1.25) mg/dL Glucose (74-99) mg/dL POC Glucose (mg/dL) 180 H 207 H 179 H (75-99) mg/dL Uric Acid (3.5-8.5) mg/dL Calcium (8.4-10.2) mg/dL Phosphorus (2.5-4.5) mg/dL Magnesium (1.6-2.3) mg/dL AST (17-59) U/L Total Protein (6.3-8.2) g/dL Albumin (3.5-5.0) g/dL 08/30/20 08/30/20 08/30/20 Range/Units 20:08 20:18 21:05 WBC (3.8-10.6) k/uL RBC (4.30-5.90) m/uL Hgb (13.0-17.5) gm/dL Hct (39.0-53.0) % RDW (11.5-15.5) % Plt Count (150-450) k/uL PT (9.0-12.0) sec INR (<1.2) ABG pH 7.28 L (7.35-7.45) ABG pCO2 52 H (35-45) mmHg ABG pO2 56 L* 70 L (83-108) mmHg ABG HCO3 (21-25) mmol/L ABG Total CO2 26 H (19-24) mmol/L ABG O2 Saturation 88.0 L 90.8 L (94-97) % BUN (9-20) mg/dL Creatinine (0.66-1.25) mg/dL Glucose (74-99) mg/dL POC Glucose (mg/dL) 208 H (75-99) mg/dL Uric Acid (3.5-8.5) mg/dL Calcium (8.4-10.2) mg/dL Phosphorus (2.5-4.5) mg/dL Magnesium (1.6-2.3) mg/dL AST (17-59) U/L Total Protein (6.3-8.2) g/dL Albumin (3.5-5.0) g/dL 08/31/20 08/31/20 08/31/20 Range/Units 00:01 02:35 04:10 WBC 24.4 H (3.8-10.6) k/uL RBC 2.35 L (4.30-5.90) m/uL Hgb 7.8 L (13.0-17.5) gm/dL Hct 22.6 L (39.0-53.0) % RDW 18.0 H (11.5-15.5) % Plt Count 88 L (150-450) k/uL PT (9.0-12.0) sec INR (<1.2) ABG pH (7.35-7.45) ABG pCO2 (35-45) mmHg ABG pO2 (83-108) mmHg ABG HCO3 (21-25) mmol/L ABG Total CO2 (19-24) mmol/L ABG O2 Saturation (94-97) % BUN (9-20) mg/dL Creatinine (0.66-1.25) mg/dL Glucose (74-99) mg/dL POC Glucose (mg/dL) 224 H 251 H (75-99) mg/dL Uric Acid (3.5-8.5) mg/dL Calcium (8.4-10.2) mg/dL Phosphorus (2.5-4.5) mg/dL Magnesium (1.6-2.3) mg/dL AST (17-59) U/L Total Protein (6.3-8.2) g/dL Albumin (3.5-5.0) g/dL 08/31/20 08/31/20 08/31/20 Range/Units 04:10 04:10 04:10 WBC (3.8-10.6) k/uL RBC (4.30-5.90) m/uL Hgb (13.0-17.5) gm/dL Hct (39.0-53.0) % RDW (11.5-15.5) % Plt Count (150-450) k/uL PT 14.1 H (9.0-12.0) sec INR 1.4 H (<1.2) ABG pH (7.35-7.45) ABG pCO2 (35-45) mmHg ABG pO2 (83-108) mmHg ABG HCO3 (21-25) mmol/L ABG Total CO2 (19-24) mmol/L ABG O2 Saturation (94-97) % BUN 72 H (9-20) mg/dL Creatinine 1.64 H (0.66-1.25) mg/dL Glucose 222 H (74-99) mg/dL POC Glucose (mg/dL) 235 H (75-99) mg/dL Uric Acid 1.8 L (3.5-8.5) mg/dL Calcium 7.8 L (8.4-10.2) mg/dL Phosphorus 5.1 H (2.5-4.5) mg/dL Magnesium (1.6-2.3) mg/dL AST 95 H (17-59) U/L Total Protein 6.2 L (6.3-8.2) g/dL Albumin 3.4 L (3.5-5.0) g/dL 08/31/20 08/31/20 08/31/20 Range/Units 05:25 06:26 11:16 WBC (3.8-10.6) k/uL RBC (4.30-5.90) m/uL Hgb (13.0-17.5) gm/dL Hct (39.0-53.0) % RDW (11.5-15.5) % Plt Count (150-450) k/uL PT (9.0-12.0) sec INR (<1.2) ABG pH (7.35-7.45) ABG pCO2 (35-45) mmHg ABG pO2 (83-108) mmHg ABG HCO3 26 H (21-25) mmol/L ABG Total CO2 27 H (19-24) mmol/L ABG O2 Saturation 98.6 H (94-97) % BUN (9-20) mg/dL Creatinine (0.66-1.25) mg/dL Glucose (74-99) mg/dL POC Glucose (mg/dL) 215 H 244 H (75-99) mg/dL Uric Acid (3.5-8.5) mg/dL Calcium (8.4-10.2) mg/dL Phosphorus (2.5-4.5) mg/dL Magnesium (1.6-2.3) mg/dL AST (17-59) U/L Total Protein (6.3-8.2) g/dL Albumin (3.5-5.0) g/dL 08/31/20 08/31/20 08/31/20 Range/Units 11:18 12:05 13:18 WBC (3.8-10.6) k/uL RBC (4.30-5.90) m/uL Hgb (13.0-17.5) gm/dL Hct (39.0-53.0) % RDW (11.5-15.5) % Plt Count (150-450) k/uL PT (9.0-12.0) sec INR (<1.2) ABG pH (7.35-7.45) ABG pCO2 (35-45) mmHg ABG pO2 (83-108) mmHg ABG HCO3 (21-25) mmol/L ABG Total CO2 (19-24) mmol/L ABG O2 Saturation (94-97) % BUN (9-20) mg/dL Creatinine (0.66-1.25) mg/dL Glucose (74-99) mg/dL POC Glucose (mg/dL) 248 H 205 H (75-99) mg/dL Uric Acid (3.5-8.5) mg/dL Calcium (8.4-10.2) mg/dL Phosphorus (2.5-4.5) mg/dL Magnesium 3.6 H (1.6-2.3) mg/dL AST (17-59) U/L Total Protein (6.3-8.2) g/dL Albumin (3.5-5.0) g/dL 08/31/20 Range/Units 13:59 WBC (3.8-10.6) k/uL RBC (4.30-5.90) m/uL Hgb (13.0-17.5) gm/dL Hct (39.0-53.0) % RDW (11.5-15.5) % Plt Count (150-450) k/uL PT (9.0-12.0) sec INR (<1.2) ABG pH (7.35-7.45) ABG pCO2 (35-45) mmHg ABG pO2 (83-108) mmHg ABG HCO3 (21-25) mmol/L ABG Total CO2 (19-24) mmol/L ABG O2 Saturation (94-97) % BUN (9-20) mg/dL Creatinine (0.66-1.25) mg/dL Glucose (74-99) mg/dL POC Glucose (mg/dL) 192 H (75-99) mg/dL Uric Acid (3.5-8.5) mg/dL Calcium (8.4-10.2) mg/dL Phosphorus (2.5-4.5) mg/dL Magnesium (1.6-2.3) mg/dL AST (17-59) U/L Total Protein (6.3-8.2) g/dL Albumin (3.5-5.0) g/dL Microbiology - Last 24 Hours (Table) 08/30/20 21:10 Sputum Culture - Preliminary Sputum
[2020-08-31 11:19] LABS: Glucose,Whole Blood 244 mg/dL (75-99)
[2020-08-31] MEDS: INSULIN REGULAR 100 UNIT in SODIUM CHLORIDE 0.9% 100 ML IV SCH ×2 (11:36→13:57)
[2020-08-31 11:56] LABS: Magnesium 3.6 mg/dL (1.6-2.3); Potassium 4.5 mmol/L (3.5-5.1)
[2020-08-31 12:07] LABS: Glucose,Whole Blood 248 mg/dL (75-99)
[2020-08-31] MEDS: MAGNESIUM OXIDE 400 MG TAB PO SCH (12:10)
[2020-08-31] MEDS: POTASSIUM CHLORIDE ER 20 MEQ TAB.ER PO SCH ×2 (12:10→20:23)
[2020-08-31] MEDS: PIPERACILLIN-TAZOBACTAM 3.375 GM in SODIUM CHLORIDE 0.9% 100 ML IVPB SCH ×2 (12:11→20:23)
[2020-08-31] MEDS: TAMSULOSIN 0.4 MG CAP.ER.24H PO SCH ×2 (12:11→20:23)
[2020-08-31] MEDS: CHLORHEXIDINE GLUCONATE 15 ML CUP MUCOUS MEM SCH ×2 (12:11→20:23)
[2020-08-31] MEDS: GABAPENTIN 100 MG CAP PO SCH ×3 (12:11→20:24)
[2020-08-31] MEDS: PANTOPRAZOLE 40 MG/10 ML VIAL IVP SCH ×2 (12:11→20:23)
[2020-08-31] MEDS: metFORMIN 500 MG TAB PO SCH (13:01)
[2020-08-31] MEDS: PANTOPRAZOLE 40 MG TABLET PO SCH (13:02)
[2020-08-31 13:20] LABS: Glucose,Whole Blood 205 mg/dL (75-99)
[2020-08-31 14:01] LABS: Glucose,Whole Blood 192 mg/dL (75-99)
[2020-08-31] MEDS: HYDROXYUREA 500 MG CAP PO SCH ×2 (14:06→21:14)
--- NOTE | 2020-08-31 14:19 | P.PN ---
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 The patient got transferred to the intensive care unit yesterday because of an acute hypoxic respiratory failu re/acute lung injury with development of bilateral pulmonary infiltrates. Note that the patient was originally hospitalized on 08/24/2024 shortness of breath and difficulty breathing. The patient is known to have chronic atrial fibrillation along with hypertension and hyperlipidemia. He was also being seen by cardiology regarding atrial fibrillation. As the patient developed breath and pulmonary infiltrates and acute hypoxic respiratory failure, the patient a chest to the intensive care unit and he was placed on a BiPAP at a pressure of 14/5 cm of water. FiO2 was as high as 90% and it was being titrated. The patient also had been placed on broad-spectrum antibiotics including IV Zosyn. He was being diuresis with IV Lasix 40 mg every 12 hours. He was on a Cardizem drip at 15 mg an hour to control atrial fibrillation. Remains on Decadron 5 mg IV every 6 hours. The chest x-ray as mentioned shows interval development of bilateral perihilar pulmonary infiltrates which are currently diffuse. The patient demonstrated gradual improvement in the white cell count from a baseline of 0.7 up to 20 and the platelet count is up to 79 with a hemoglobin of 8.0. The patient did not receive any packed RBC transfusions. The differential count shows 46% blasts. Renal function is impaired in the creatinine is 1.47 as the patient is being diuresed. Uric acid level is up to 8.9 with a calcium level of 8.3 and phosphorus level of 5.8 and LDH level was as high as 5244 indicating the possibility of a tumor lysis syndrome. Based on that, the patient was given a dose of respirator he carries yesterday and urine acid level is improved considerably. The echo from last month showed a preserved LV function with an ejection fraction of 6065%. The patient has mild MR, RV is mildly enlarged. Note that the patient over progressively more short of breath and hypoxic. At point, the patient was intubated and placed on a mechanical ventilator. I saw this patient this morning. The patient was already intubated on a mechanical ventilator on assist control mode with a rate of 24 with a tidal volume of 450 and FiO2 of 50% with a PEEP of 10. The blood gas showed a pH of 7.42 with a pC O2 of 40 and pO2 of 104. This was on FiO2 of 60%. The patient was sedated with propofol running at 75 mg per KG per minute. The patient is also on insulin at 5 units an hour for blood sugar control. The patient is on norepinephrine infusion at 0.06 units per KG per minute. Cardizem drip is running at 50 mg an hour in regards to her atrial fibrillation. The heart rate is in the order of 110-120. He is afebrile. Chest x-rays showing bilateral pulmonary infiltrates, stable compared to yesterday. immediately a bronchoscopy was done and the bronchioloalveolar lavage of the right middle lobe was collected as there was a concern of an underlying infection. The patient is currently on IV Zosyn. Lasix was discontinued. Objective - Vital Signs Vital signs: Vital Signs Temp 98.2 F 08/31/20 04:00 Pulse 135 H 08/31/20 07:00 Resp 28 H 08/31/20 07:00 BP 108/70 08/31/20 01:15 Pulse Ox 95 08/31/20 07:00 Intake & Output 08/30/20 08/31/20 08/31/20 18:59 06:59 18:59 Intake Total 660.436 994.125 292.688 Output Total 700 1500 300 Balance -39.564 -505.875 -7.312 Weight 98.7 kg 98.7 kg Intake: IV 370 370 20 0.9 120 220 20 Diltiazem 125 mg In 50 50 Sodium Chloride 0.9% 100 ml @ 15 MG/HR 15 mls/hr IV .Q8H20M [facility] Rx#: [id number] Piperacillin-Tazobactam 3 100 100 .375 gm In Sodium Chloride 0.9% 100 ml @ 25 mls/hr IVPB Q12HR [facility] Rx #:[id number] Rasburicase 6 mg In 100 Sodium Chloride 0.9% 46 ml @ 100 mls/hr IV ONCE ONE Rx#:[id number] Intake, IV Titration 172.436 624.125 272.688 Amount Diltiazem 125 mg In 125 169.667 55.25 Sodium Chloride 0.9% 100 ml @ 15 MG/HR 15 mls/hr IV .Q8H20M [facility] Rx#: [id number] Insulin Regular 100 unit 26.210 In Sodium Chloride 0.9% 100 ml @ Per Protocol IV .Q0M [facility] Rx#:[id number] Insulin Regular 100 unit 47.436 67.889 In Sodium Chloride 0.9% 100 ml @ Titrate IV .Q0M [facility] Rx#:[id number] Norepinephrine 4 mg In 227.593 Sodium Chloride 0.9% 250 ml @ 0.05 MCG/KG/MIN 18. 479 mls/hr IV .[id number] [facility] Rx#:[id number] propofoL 1,000 mg In 158.976 191.228 Empty Bag 1 bag @ Titrate IV .Q0M [facility] Rx#: [id number] Oral 118 Output: Gastric Drainage 100 Urine 700 1500 200 Other: Voiding Method Indwelling Catheter Indwelling Catheter # Voids 350 ABP, PAP, CO, CI - Last Documented Arterial Blood Pressure 89/51 - Exam Gen. appearance the patient is currently sedated, comfortable intubated on a mechanical ventilator. The patient is sedated with propofol. Orogastric and orotracheal tube are both in place. Head exam was generally normal. There was no scleral icterus or corneal arcus. Mucous membranes were moist. Neck was supple and without jugular venous distension, thyromegaly, or carotid bruits. Carotids were easily palpable bilaterally. There was no adenopathy.the patient is a left IJ triple-lumen catheter in place. Cardiac exam revealed the PMI to be normally situated and sized. The rhythm was irregular consistent with atrial fibrillation with rapid ventricular response and no extrasystoles were noted during several minutes of auscultation. The first and second heart sounds were normal and physiologic splitting of the second heart sound was noted. There were no murmurs, rubs, clicks, or gallops. Lungs were clear to auscultation and percussion, and with normal diaphragmatic excursion. No wheezes or rales were noted. Abdominal exam revealed normal bowel sounds. The abdomen was soft, non-tender, and without masses, organomegaly, or appreciable enlargement of the abdominal aorta. Examination of the extremities revealed easily palpable radial, femoral and pedal pulses. There was no cyanosis, clubbing or edema. Examination of the skin revealed no evidence of significant rashes, suspicious a ppearing nevi or other concerning lesions. Neurologically the patient is sedated and the patient is calm and comfortable at this point in time. - Labs CBC & Chem 7: 08/31/20 04:10 08/31/20 11:18 Labs: Abnormal Lab Results - Last 24 Hours (Table) 08/30/20 08/30/20 08/30/20 Range/Units 14:54 17:10 18:39 WBC (3.8-10.6) k/uL RBC (4.30-5.90) m/uL Hgb (13.0-17.5) gm/dL Hct (39.0-53.0) % RDW (11.5-15.5) % Plt Count (150-450) k/uL PT (9.0-12.0) sec INR (<1.2) ABG pH (7.35-7.45) ABG pCO2 (35-45) mmHg ABG pO2 (83-108) mmHg ABG HCO3 (21-25) mmol/L ABG Total CO2 (19-24) mmol/L ABG O2 Saturation (94-97) % BUN (9-20) mg/dL Creatinine (0.66-1.25) mg/dL Glucose (74-99) mg/dL POC Glucose (mg/dL) 180 H 207 H 179 H (75-99) mg/dL Uric Acid (3.5-8.5) mg/dL Calcium (8.4-10.2) mg/dL Phosphorus (2.5-4.5) mg/dL Magnesium (1.6-2.3) mg/dL AST (17-59) U/L Total Protein (6.3-8.2) g/dL Albumin (3.5-5.0) g/dL 08/30/20 08/30/20 08/30/20 Range/Units 20:08 20:18 21:05 WBC (3.8-10.6) k/uL RBC (4.30-5.90) m/uL Hgb (13.0-17.5) gm/dL Hct (39.0-53.0) % RDW (11.5-15.5) % Plt Count (150-450) k/uL PT (9.0-12.0) sec INR (<1.2) ABG pH 7.28 L (7.35-7.45) ABG pCO2 52 H (35-45) mmHg ABG pO2 56 L* 70 L (83-108) mmHg ABG HCO3 (21-25) mmol/L ABG Total CO2 26 H (19-24) mmol/L ABG O2 Saturation 88.0 L 90.8 L (94-97) % BUN (9-20) mg/dL Creatinine (0.66-1.25) mg/dL Glucose (74-99) mg/dL POC Glucose (mg/dL) 208 H (75-99) mg/dL Uric Acid (3.5-8.5) mg/dL Calcium (8.4-10.2) mg/dL Phosphorus (2.5-4.5) mg/dL Magnesium (1.6-2.3) mg/dL AST (17-59) U/L Total Protein (6.3-8.2) g/dL Albumin (3.5-5.0) g/dL 08/31/20 08/31/20 08/31/20 Range/Units 00:01 02:35 04:10 WBC 24.4 H (3.8-10.6) k/uL RBC 2.35 L (4.30-5.90) m/uL Hgb 7.8 L (13.0-17.5) gm/dL Hct 22.6 L (39.0-53.0) % RDW 18.0 H (11.5-15.5) % Plt Count 88 L (150-450) k/uL PT (9.0-12.0) sec INR (<1.2) ABG pH (7.35-7.45) ABG pCO2 (35-45) mmHg ABG pO2 (83-108) mmHg ABG HCO3 (21-25) mmol/L ABG Total CO2 (19-24) mmol/L ABG O2 Saturation (94-97) % BUN (9-20) mg/dL Creatinine (0.66-1.25) mg/dL Glucose (74-99) mg/dL POC Glucose (mg/dL) 224 H 251 H (75-99) mg/dL Uric Acid (3.5-8.5) mg/dL Calcium (8.4-10.2) mg/dL Phosphorus (2.5-4.5) mg/dL Magnesium (1.6-2.3) mg/dL AST (17-59) U/L Total Protein (6.3-8.2) g/dL Albumin (3.5-5.0) g/dL 08/31/20 08/31/20 08/31/20 Range/Units 04:10 04:10 04:10 WBC (3.8-10.6) k/uL RBC (4.30-5.90) m/uL Hgb (13.0-17.5) gm/dL Hct (39.0-53.0) % RDW (11.5-15.5) % Plt Count (150-450) k/uL PT 14.1 H (9.0-12.0) sec INR 1.4 H (<1.2) ABG pH (7.35-7.45) ABG pCO2 (35-45) mmHg ABG pO2 (83-108) mmHg ABG HCO3 (21-25) mmol/L ABG Total CO2 (19-24) mmol/L ABG O2 Saturation (94-97) % BUN 72 H (9-20) mg/dL Creatinine 1.64 H (0.66-1.25) mg/dL Glucose 222 H (74-99) mg/dL POC Glucose (mg/dL) 235 H (75-99) mg/dL Uric Acid 1.8 L (3.5-8.5) mg/dL Calcium 7.8 L (8.4-10.2) mg/dL Phosphorus 5.1 H (2.5-4.5) mg/dL Magnesium (1.6-2.3) mg/dL AST 95 H (17-59) U/L Total Protein 6.2 L (6.3-8.2) g/dL Albumin 3.4 L (3.5-5.0) g/dL 08/31/20 08/31/20 08/31/20 Range/Units 05:25 06:26 11:16 WBC (3.8-10.6) k/uL RBC (4.30-5.90) m/uL Hgb (13.0-17.5) gm/dL Hct (39.0-53.0) % RDW (11.5-15.5) % Plt Count (150-450) k/uL PT (9.0-12.0) sec INR (<1.2) ABG pH (7.35-7.45) ABG pCO2 (35-45) mmHg ABG pO2 (83-108) mmHg ABG HCO3 26 H (21-25) mmol/L ABG Total CO2 27 H (19-24) mmol/L ABG O2 Saturation 98.6 H (94-97) % BUN (9-20) mg/dL Creatinine (0.66-1.25) mg/dL Glucose (74-99) mg/dL POC Glucose (mg/dL) 215 H 244 H (75-99) mg/dL Uric Acid (3.5-8.5) mg/dL Calcium (8.4-10.2) mg/dL Phosphorus (2.5-4.5) mg/dL Magnesium (1.6-2.3) mg/dL AST (17-59) U/L Total Protein (6.3-8.2) g/dL Albumin (3.5-5.0) g/dL 08/31/20 08/31/20 08/31/20 Range/Units 11:18 12:05 13:18 WBC (3.8-10.6) k/uL RBC (4.30-5.90) m/uL Hgb (13.0-17.5) gm/dL Hct (39.0-53.0) % RDW (11.5-15.5) % Plt Count (150-450) k/uL PT (9.0-12.0) sec INR (<1.2) ABG pH (7.35-7.45) ABG pCO2 (35-45) mmHg ABG pO2 (83-108) mmHg ABG HCO3 (21-25) mmol/L ABG Total CO2 (19-24) mmol/L ABG O2 Saturation (94-97) % BUN (9-20) mg/dL Creatinine (0.66-1.25) mg/dL Glucose (74-99) mg/dL POC Glucose (mg/dL) 248 H 205 H (75-99) mg/dL Uric Acid (3.5-8.5) mg/dL Calcium (8.4-10.2) mg/dL Phosphorus (2.5-4.5) mg/dL Magnesium 3.6 H (1.6-2.3) mg/dL AST (17-59) U/L Total Protein (6.3-8.2) g/dL Albumin (3.5-5.0) g/dL 08/31/20 Range/Units 13:59 WBC (3.8-10.6) k/uL RBC (4.30-5.90) m/uL Hgb (13.0-17.5) gm/dL Hct (39.0-53.0) % RDW (11.5-15.5) % Plt Count (150-450) k/uL PT (9.0-12.0) sec INR (<1.2) ABG pH (7.35-7.45) ABG pCO2 (35-45) mmHg ABG pO2 (83-108) mmHg ABG HCO3 (21-25) mmol/L ABG Total CO2 (19-24) mmol/L ABG O2 Saturation (94-97) % BUN (9-20) mg/dL Creatinine (0.66-1.25) mg/dL Glucose (74-99) mg/dL POC Glucose (mg/dL) 192 H (75-99) mg/dL Uric Acid (3.5-8.5) mg/dL Calcium (8.4-10.2) mg/dL Phosphorus (2.5-4.5) mg/dL Magnesium (1.6-2.3) mg/dL AST (17-59) U/L Total Protein (6.3-8.2) g/dL Albumin (3.5-5.0) g/dL Microbiology - Last 24 Hours (Table) 08/30/20 21:10 Sputum Culture - Preliminary Sputum Assessment and Plan Plan: 1 acute hypoxic respiratory failure, with development of diffuse bilateral pulmonary infiltrates, possibly related to pneumonia/CHF versus noncardiogenic pulmonary edema including acute lung injury from various insult related to acute promyelocytic leukemia treatment. The patient got intubated on 08/30/2020 and the patient is currently on a mechanical ventilator. Chest x-ray still showing diffuse but the pulmonary infiltrates. Bronchoscopy was done today and the bronchioloalveolar lavage of the right middle lobe was collected. A triple lumen cath was also inserted in the left IJ. Remains on IV Zosyn. Lasix has been discontinued and the findings are not consistent with CHF. Favored acute lung injury , probably tumor related. 2 chronic atrial fibrillation currently on a Cardizem drip for rate control, the patient is also requiring low-dose norepinephrine infusion for blood pressure control. 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 13 obstructive sleep apnea, history of Plan Continue ventilator support Keep the patient sedated with propofol Continue same vent settings for today and monitor the blood gases Continue Cardizem for rate control which is running at 15 mg an hour Norepinephrine infusion for blood pressure support to maintain a mean artery pressure above 60 Continued IV Zosyn Bronchoscopy was done with the bronchioloalveolar lavage of the right middle lobe obtained to rule out any ongoing infections including the possibility of a portion stick infections Continue Decadron Continue Hydrea Monitor electrolytes critical condition will continue to follow make further recommendations based on the progress. This evaluation was done and morning 30 minutes. Time with Patient: Greater than 30
--- NOTE | 2020-08-31 14:24 | P.PCN ---
Date of Procedure: 08/31/20 Preoperative Diagnosis: Acute bilateral pulmonary infiltrates, acute hypoxic respiratory failure Postoperative Diagnosis: Acute bilateral pulmonary infiltrates, acute hypoxic respiratory failure Procedure(s) Performed: Bronchoscopy and bronchoalveolar lavage of the right middle lobe Insertion of a triple-lumen catheter Anesthesia: local Surgeon: Bobby Schaeffer Estimated Blood Loss (ml): 0 Pathology: other Condition: critical Disposition: ICU Operative Findings: Bronchoscopy with the bronchioloalveolar lavage This procedure was done in the intensive care unit. A timeout was done based on our protocol. The patient was already intubated on a mechanical ventilator. The patient was placed in the 100% FiO2. The patient was already on propofol. A dose of Nimbex 10 mg IV push was given for paralysis. Following that, irregular at that was attached to the orotracheal tube. Utilizing a disposable bronchoscope, the procedure was initiated by the bronchoscope was advanced through the orotracheal tube and was moved on to the lower trachea. The tip of the orotracheal tube was seen about 2 cm above the josette. Josette was sharp in the midline. Airway inspection was done where the bilateral mainstem bronchi were seen and visualized. Airway inspection included examination of the right mainstem bronchus, right upper lobe bronchus, right middle lobe bronchus and right lower lobe bronchus along with its various segments and subsegments. Examination of the left side to the left mainstem bronchus, left upper lobe bronchus, lingular segment of the left lower lobe bronchus along with the various segments and subsegments. The airway inspection was completed. The bronchoscope was wedged into the right middle lobe and the bronchioloalveolar lavage was done. A total of 80 and the frozen diffuse and 25 mL of aspirate was obtained that was quite cloudy. No endobronchial tumors or lesions or foreign bodies identified. The bronchoscope was gradually removed and the samples collected from the right middle lobe was sent for microbial analysis. No complications. The patient remains hemodynamically stable throughout the procedure. Indication: Hemodynamic monitoring/Intravenous access. A time-out was completed verifying correct patient, procedure, site, positioning, and implant(s) or special equipment if applicable. The patient was placed in a dependent position appropriate for central line placement based on the vein to be cannulated. The patients left neck was prepped and draped in sterile fashion. 1% Lidocaine was used to anesthetize the surrounding skin area. A triple lumen 9F Cordis catheter was introduced into the internal jugular or common femoral vein using Seldinger technique. The catheter was threaded smoothly over the guide wire and appropriate blood return was obtained. Each lumen of the catheter was evacuated of air and flushed with sterile saline. The catheter was then sutured in place to the skin and a sterile dressing applied. Perfusion to the extremity distal to the point of catheter insertion was checked and found to be adequate. The patient tolerated the procedure well and there were no complications.
[2020-08-31 15:06] LABS: Glucose,Whole Blood 188 mg/dL (75-99)
[2020-08-31 16:20] LABS: Glucose,Whole Blood 180 mg/dL (75-99)
[2020-08-31 16:21] LABS: Appearance,BF Bloody; Color,BF Red; Nucleated Cells, Body Fluid 150 /uL; RBC, Body Fluid 150 /uL
[2020-08-31 16:25] LABS: Mononuclear WBC,Body Fluid 96 %; Polynuclear WBC,Body Fluid 4 %; Total Cells Counted,Body Fluid 100
[2020-08-31] MEDS: NOREPINEPHRINE 32 MG in SODIUM CHLORIDE 0.9% 218 ML IV SCH (17:23)
[2020-08-31 17:28] LABS: Glucose,Whole Blood 187 mg/dL (75-99)
[2020-08-31 18:31] LABS: Glucose,Whole Blood 194 mg/dL (75-99)
[2020-08-31 18:54] LABS: Glucose,Whole Blood 204 mg/dL (75-99)
--- NOTE | 2020-08-31 20:00 | P.PN ---
Subjective Progress Note Date: 08/31/20 Principal diagnosis: APL - Acute Hypoxic respiratory failure Patient is now in ICU and on mechanical Ventilation. Objective - Vital Signs Vital signs: Vital Signs Temp 98.2 F 08/31/20 04:00 Pulse 135 H 08/31/20 07:00 Resp 28 H 08/31/20 07:00 BP 108/70 08/31/20 01:15 Pulse Ox 95 08/31/20 07:00 Intake & Output 08/30/20 08/31/20 08/31/20 18:59 06:59 18:59 Intake Total 660.436 994.125 175.25 Output Total 700 1500 300 Balance -39.564 -505.875 -124.75 Weight 98.7 kg Intake: IV 370 370 20 0.9 120 220 20 Diltiazem 125 mg In 50 50 Sodium Chloride 0.9% 100 ml @ 15 MG/HR 15 mls/hr IV .Q8H20M ANA Rx#: [id number] Piperacillin-Tazobactam 3 100 100 .375 gm In Sodium Chloride 0.9% 100 ml @ 25 mls/hr IVPB Q12HR ANA Rx #:[id number] Rasburicase 6 mg In 100 Sodium Chloride 0.9% 46 ml @ 100 mls/hr IV ONCE ONE Rx#:[id number] Intake, IV Titration 172.436 624.125 155.25 Amount Diltiazem 125 mg In 125 169.667 55.25 Sodium Chloride 0.9% 100 ml @ 15 MG/HR 15 mls/hr IV .Q8H20M ANA Rx#: [id number] Insulin Regular 100 unit 47.436 67.889 In Sodium Chloride 0.9% 100 ml @ Titrate IV .Q0M ANA Rx#:[id number] Norepinephrine 4 mg In 227.593 Sodium Chloride 0.9% 250 ml @ 0.05 MCG/KG/MIN 18. 479 mls/hr IV .[id number] ANA Rx#:[id number] propofoL 1,000 mg In 158.976 100 Empty Bag 1 bag @ Titrate IV .Q0M ANA Rx#: [id number] Oral 118 Output: Gastric Drainage 100 Urine 700 1500 200 Other: Voiding Method Indwelling Catheter Indwelling Catheter # Voids 350 ABP, PAP, CO, CI - Last Documented Arterial Blood Pressure 89/51 - Exam - Constitutional Constitutional Comment(s): Ventilator - EENT Eyes: Present: EOMI ENT:ET tubenormal oropharynx - Respiratory Respiratory: bilateral: rales, rhonchi - Cardiovascular Rhythm: irregularly irregular Heart sounds: normal: S1, S2 - Gastrointestinal General gastrointestinal: Present: distended, normal bowel sounds, soft - Integumentary Integumentary: Present: normal - Neurologic Neurologic:KARSTEN - Musculoskeletal Musculoskeletal:Atrophy noted to muscles, KARSTEN strength - Psychiatric Psychiatric: KARSTEN - Constitutional General appearance: Present: morbidly obese - Labs CBC & Chem 7: 08/31/20 04:10 08/31/20 11:18 Labs: Abnormal Lab Results - Last 24 Hours (Table) 08/30/20 08/30/20 08/30/20 Range/Units 10:31 11:38 12:43 WBC (3.8-10.6) k/uL RBC (4.30-5.90) m/uL Hgb (13.0-17.5) gm/dL Hct (39.0-53.0) % RDW (11.5-15.5) % Plt Count (150-450) k/uL PT (9.0-12.0) sec INR (<1.2) ABG pH (7.35-7.45) ABG pCO2 (35-45) mmHg ABG pO2 148 H (83-108) mmHg ABG HCO3 (21-25) mmol/L ABG Total CO2 25 H (19-24) mmol/L ABG O2 Saturation 99.8 H (94-97) % BUN (9-20) mg/dL Creatinine (0.66-1.25) mg/dL Glucose (74-99) mg/dL POC Glucose (mg/dL) 213 H 212 H (75-99) mg/dL Uric Acid (3.5-8.5) mg/dL Calcium (8.4-10.2) mg/dL Phosphorus (2.5-4.5) mg/dL AST (17-59) U/L Total Protein (6.3-8.2) g/dL Albumin (3.5-5.0) g/dL 08/30/20 08/30/20 08/30/20 Range/Units 12:45 13:58 14:54 WBC (3.8-10.6) k/uL RBC (4.30-5.90) m/uL Hgb (13.0-17.5) gm/dL Hct (39.0-53.0) % RDW (11.5-15.5) % Plt Count (150-450) k/uL PT (9.0-12.0) sec INR (<1.2) ABG pH (7.35-7.45) ABG pCO2 (35-45) mmHg ABG pO2 (83-108) mmHg ABG HCO3 (21-25) mmol/L ABG Total CO2 (19-24) mmol/L ABG O2 Saturation (94-97) % BUN (9-20) mg/dL Creatinine (0.66-1.25) mg/dL Glucose (74-99) mg/dL POC Glucose (mg/dL) 202 H 197 H 180 H (75-99) mg/dL Uric Acid (3.5-8.5) mg/dL Calcium (8.4-10.2) mg/dL Phosphorus (2.5-4.5) mg/dL AST (17-59) U/L Total Protein (6.3-8.2) g/dL Albumin (3.5-5.0) g/dL 08/30/20 08/30/20 08/30/20 Range/Units 17:10 18:39 20:08 WBC (3.8-10.6) k/uL RBC (4.30-5.90) m/uL Hgb (13.0-17.5) gm/dL Hct (39.0-53.0) % RDW (11.5-15.5) % Plt Count (150-450) k/uL PT (9.0-12.0) sec INR (<1.2) ABG pH (7.35-7.45) ABG pCO2 (35-45) mmHg ABG pO2 56 L* (83-108) mmHg ABG HCO3 (21-25) mmol/L ABG Total CO2 (19-24) mmol/L ABG O2 Saturation 88.0 L (94-97) % BUN (9-20) mg/dL Creatinine (0.66-1.25) mg/dL Glucose (74-99) mg/dL POC Glucose (mg/dL) 207 H 179 H (75-99) mg/dL Uric Acid (3.5-8.5) mg/dL Calcium (8.4-10.2) mg/dL Phosphorus (2.5-4.5) mg/dL AST (17-59) U/L Total Protein (6.3-8.2) g/dL Albumin (3.5-5.0) g/dL 08/30/20 08/30/20 08/31/20 Range/Units 20:18 21:05 00:01 WBC (3.8-10.6) k/uL RBC (4.30-5.90) m/uL Hgb (13.0-17.5) gm/dL Hct (39.0-53.0) % RDW (11.5-15.5) % Plt Count (150-450) k/uL PT (9.0-12.0) sec INR (<1.2) ABG pH 7.28 L (7.35-7.45) ABG pCO2 52 H (35-45) mmHg ABG pO2 70 L (83-108) mmHg ABG HCO3 (21-25) mmol/L ABG Total CO2 26 H (19-24) mmol/L ABG O2 Saturation 90.8 L (94-97) % BUN (9-20) mg/dL Creatinine (0.66-1.25) mg/dL Glucose (74-99) mg/dL POC Glucose (mg/dL) 208 H 224 H (75-99) mg/dL Uric Acid (3.5-8.5) mg/dL Calcium (8.4-10.2) mg/dL Phosphorus (2.5-4.5) mg/dL AST (17-59) U/L Total Protein (6.3-8.2) g/dL Albumin (3.5-5.0) g/dL 08/31/20 08/31/20 08/31/20 Range/Units 02:35 04:10 04:10 WBC 24.4 H (3.8-10.6) k/uL RBC 2.35 L (4.30-5.90) m/uL Hgb 7.8 L (13.0-17.5) gm/dL Hct 22.6 L (39.0-53.0) % RDW 18.0 H (11.5-15.5) % Plt Count 88 L (150-450) k/uL PT (9.0-12.0) sec INR (<1.2) ABG pH (7.35-7.45) ABG pCO2 (35-45) mmHg ABG pO2 (83-108) mmHg ABG HCO3 (21-25) mmol/L ABG Total CO2 (19-24) mmol/L ABG O2 Saturation (94-97) % BUN 72 H (9-20) mg/dL Creatinine 1.64 H (0.66-1.25) mg/dL Glucose 222 H (74-99) mg/dL POC Glucose (mg/dL) 251 H (75-99) mg/dL Uric Acid 1.8 L (3.5-8.5) mg/dL Calcium 7.8 L (8.4-10.2) mg/dL Phosphorus 5.1 H (2.5-4.5) mg/dL AST 95 H (17-59) U/L Total Protein 6.2 L (6.3-8.2) g/dL Albumin 3.4 L (3.5-5.0) g/dL 08/31/20 08/31/20 08/31/20 Range/Units 04:10 04:10 05:25 WBC (3.8-10.6) k/uL RBC (4.30-5.90) m/uL Hgb (13.0-17.5) gm/dL Hct (39.0-53.0) % RDW (11.5-15.5) % Plt Count (150-450) k/uL PT 14.1 H (9.0-12.0) sec INR 1.4 H (<1.2) ABG pH (7.35-7.45) ABG pCO2 (35-45) mmHg ABG pO2 (83-108) mmHg ABG HCO3 26 H (21-25) mmol/L ABG Total CO2 27 H (19-24) mmol/L ABG O2 Saturation 98.6 H (94-97) % BUN (9-20) mg/dL Creatinine (0.66-1.25) mg/dL Glucose (74-99) mg/dL POC Glucose (mg/dL) 235 H (75-99) mg/dL Uric Acid (3.5-8.5) mg/dL Calcium (8.4-10.2) mg/dL Phosphorus (2.5-4.5) mg/dL AST (17-59) U/L Total Protein (6.3-8.2) g/dL Albumin (3.5-5.0) g/dL 08/31/20 Range/Units 06:26 WBC (3.8-10.6) k/uL RBC (4.30-5.90) m/uL Hgb (13.0-17.5) gm/dL Hct (39.0-53.0) % RDW (11.5-15.5) % Plt Count (150-450) k/uL PT (9.0-12.0) sec INR (<1.2) ABG pH (7.35-7.45) ABG pCO2 (35-45) mmHg ABG pO2 (83-108) mmHg ABG HCO3 (21-25) mmol/L ABG Total CO2 (19-24) mmol/L ABG O2 Saturation (94-97) % BUN (9-20) mg/dL Creatinine (0.66-1.25) mg/dL Glucose (74-99) mg/dL POC Glucose (mg/dL) 215 H (75-99) mg/dL Uric Acid (3.5-8.5) mg/dL Calcium (8.4-10.2) mg/dL Phosphorus (2.5-4.5) mg/dL AST (17-59) U/L Total Protein (6.3-8.2) g/dL Albumin (3.5-5.0) g/dL Assessment and Plan Plan: Assessment and Recommendations: 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 Daily monitoring of bloodwork: - Coags, Fibrinogen - CBC with Diff - CMP, Mag, Phos - Uric Acid, LDH Need to keep magnesium >1.8mg/dl and K+ >4mmol/L. Status post Elitek on 08/26 SCDs for DVT prophylaxis Supportive medications ordered for possible side effects. 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 The patient is too unstable to continue treatment at this time, therefore Hydrea will be ordered in the interim. 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 - Pulmonary following and Bronchoscopy will be done today - IV Zosyn treatment for potential pneumonia. - Pulm to perform Bronchoscopy today - Continue on Steroids Physician Attest: I have completed the full history and physical and developed the full impression and plan, agree with above dictation, dictated as a scribe.
[2020-08-31 20:21] LABS: Glucose,Whole Blood 202 mg/dL (75-99)
[2020-08-31] MEDS: ATORVASTATIN 10 MG TAB PO SCH (20:23)
[2020-08-31 21:19] LABS: Glucose,Whole Blood 197 mg/dL (75-99)
[2020-08-31 22:04] LABS: Glucose,Whole Blood 202 mg/dL (75-99)
--- NOTE | 2020-08-31 22:12 | P.PN ---
Progress Note - Text Progress Note Date: 08/31/20 Presenting complaint: Tired Interval history: This is a patient who was recently diagnosed with promyelocytic leukemia. On chemotherapy. Went to CHF and atrial fibrillation with rapid ventricular rate. Transferred to telemetry floor. Patient felt to have about differentiation syndrome. Patient was started on IV dexamethasone. Put on a Cardizem drip. Requiring high flow oxygen. Given IV Lasix. On August [address] on BiPAP, transferred to ICU. Intubated Today-ICU-2 feeding started at 10 mL an hour. Did undergo bronchoscopy. On the ventilator. FiO2 15 of PEEP of 10. Drips include levo fed, propofol, insulin, Cardizem. Patient isn't A. fib with a variable heart rate. Daughter the bedside. Review of systems: Patient intubated Active Medications Hydrocodone Bitart/Acetaminophen (Hydrocodone/Apap 10-325mg 1 Each Tab) 1 each PO QID PRN PRN Reason: Pain Last Admin: 08/30/20 04:18 Dose: 1 each Documented by: Al Hydroxide/Mg Hydroxide (Mag Hydrox/Al Hydrox/Simeth 30 Ml Cup) 30 ml PO Q4HR PRN PRN Reason: GI Upset Last Admin: 08/29/20 02:27 Dose: 30 ml Documented by: Atorvastatin Calcium (Atorvastatin 10 Mg Tab) 10 mg PO HS [facility] Last Admin: 08/31/20 20:23 Dose: 10 mg Documented by: Chlorhexidine Gluconate (Chlorhexidine Gluconate 15 Ml Cup) 15 ml MUCOUS MEM BID [facility] Last Admin: 08/31/20 20:23 Dose: 15 ml Documented by: Dexamethasone Sodium Phosphate (Dexamethasone Sod Phosphate 4 Mg/Ml 1 Ml Vial) 5 mg IV Q6HR [facility] Last Admin: 08/31/20 17:12 Dose: 5 mg Documented by: Gabapentin (Gabapentin 100 Mg Cap) 100 mg PO TID [facility] Last Admin: 08/31/20 20:24 Dose: 100 mg Documented by: Hydroxyurea (Hydroxyurea 500 Mg Cap) 500 mg PO BID [facility] Last Admin: 08/31/20 21:14 Dose: 500 mg Documented by: Diltiazem HCl 125 mg/ Sodium (Chloride) 125 mls @ 15 mls/hr IV .Q8H20M [facility] Last Admin: 08/31/20 17:00 Dose: 15 mg/hr, 15 mls/hr Documented by: Piperacillin Sod/Tazobactam (Sod 3.375 gm/ Sodium Chloride) 100 mls @ 25 mls/hr IVPB Q12HR [facility] Last Admin: 08/31/20 20:23 Dose: 25 mls/hr Documented by: Propofol 1,000 mg/ IV Solution 100 mls @ 0 mls/hr IV .Q0M [facility]; Protocol Last Admin: 08/31/20 21:55 Dose: 45 mcg/kg/min, 26.19 mls/hr Documented by: Insulin Human Regular 100 unit (/ Sodium Chloride) 101 mls @ 0 mls/hr IV .Q0M [facility]; Protocol Last Admin: 08/31/20 13:57 Dose: 7 units/hr, 7.07 mls/hr Documented by: Norepinephrine Bitartrate 32 (mg/ Sodium Chloride) 250 mls @ 2.776 mls/hr IV .Q24H [facility]; Protocol Last Admin: 08/31/20 17:23 Dose: 0.06 mcg/kg/min, 2.776 mls/hr Documented by: Insulin Human Regular (Insulin Regular Bolus (From Drip Bag)) 9.9 unit 0.1 unit/kg (9.9 unit) IV ONCE PRN PRN Reason: Blood Sugar - High Stop: 09/30/20 21:00 Magnesium Oxide (Magnesium Oxide 400 Mg Tab) 400 mg PO DAILY [facility] Last Admin: 08/31/20 12:10 Dose: 400 mg Documented by: Metoprolol Tartrate (Metoprolol Tartrate 50 Mg Tab) 100 mg PO TID [facility] Last Admin: 08/31/20 20:23 Dose: 100 mg Documented by: Miscellaneous Information (Potassium Replacement Protocol 1 Each Misc) 1 each MISCELLANE DAILY PRN; Protocol PRN Reason: Per Protocol Miscellaneous Information (Magnesium Replacement Protocol 1 Each Misc) 1 each MISCELLANE DAILY PRN; Protocol PRN Reason: Per Protocol Pantoprazole Sodium (Pantoprazole 40 Mg/10 Ml Vial) 40 mg IVP BID [facility] Last Admin: 08/31/20 20:23 Dose: 40 mg Documented by: Potassium Chloride (Potassium Chloride Er 20 Meq Tab.Er) 20 meq PO BID [facility] Last Admin: 08/31/20 20:23 Dose: 20 meq Documented by: Tamsulosin HCl (Tamsulosin 0.4 Mg Cap.Er.24h) 0.4 mg PO BID [facility] Last Admin: 08/31/20 20:23 Dose: 0.4 mg Documented by: On examination: VITAL SIGNS: 99.1, 115, 16, 119/58, 99% on the ventilator GENERAL APPEARANCE: Laying in bed, intubated HEENT: Endotracheal tube EYES: Pupils equal. Conjunctiva normal. NECK: JVD unable to assess. Mass not palpable. RESPIRATORY: Respiratory effort increased. , decreased breath sounds. wheezing , coarse crackles, CARDIOVASCULAR: Heart sounds irregular some edema.. ABDOMEN: Soft. Liver and spleen not palpable. No tenderness. No mass palpable. PSYCHIATRY: Sedated INVESTIGATIONS, reviewed in the clinical context: White count 24.4 hemoglobin 7.8 platelets 88 potassium 4.3 bun 72 creatinine 1.64 pro-calcitonin 0.76 Chest x-ray film personally reviewed by me shows worsening infiltrates Previous testing White count 1.5 hemoglobin 8.3 platelets 52 blast cells 30% Potassium 3.8 creatinine 1.24 blood glucose 276 lactic acid 3.5 uric acid 1.3 Chest x-ray film personally reviewed by me-pulmonary edema 2-D echocardiogram from last month showed EF 60-65% Assessment: -Persistent atrial flutter-fibrillation with a rapid ventricular rate, uncontrolled -Acute congestive heart failure exacerbation from diastolic dysfunction EF 60- 65%, precipitated by atrial flutter fibrillation with a rapid ventricular rate- -Acute hypoxic respiratory failure requiring ventilator support. -Possible pneumonia. Though infiltrates could be from leukocytes from the differential syndrome. - Differential syndrome with treatment of APL-slow to respond -Hypotensive shock-requiring pressor support -Diabetes mellitus type 2, uncontrolled with hyperglycemia secondary to steroids -Essential hypertension -Hyperlipidemia -Primary osteoarthritis -Obstructive sleep apnea uses CPAP -Childhood polio -Obstructive sleep apnea uses CPAP -Primary osteoarthritis -Promyelocytic leukemia-started on chemotherapy -Acute kidney injury, ATN Plan: Patient currently and IV Cardizem drip, hydroxyurea, insulin drip, Lopressor, levo fed drip, IV Zosyn, propofol-patient is admin critical remains in ICU.
[2020-08-31 23:08] LABS: Glucose,Whole Blood 202 mg/dL (75-99)
[2020-08-31] MEDS ORDERED: DEXTROSE 5% IN WATER 100 ML with AMIODARONE 150 MG IV ONE (23:53)
[2020-08-31] MEDS ORDERED: AMIODARONE 360 MG in DEXTROSE 5% IN WATER 200 ML IV ONE ×2 (23:53)
[2020-09-01 00:16] LABS: Glucose,Whole Blood 223 mg/dL (75-99)
[2020-09-01 01:02] LABS: Glucose,Whole Blood 210 mg/dL (75-99)
[2020-09-01 02:07] LABS: Glucose,Whole Blood 232 mg/dL (75-99)
[2020-09-01] MEDS: INSULIN REGULAR 100 UNIT in SODIUM CHLORIDE 0.9% 100 ML IV SCH ×4 (02:07→22:03)
[2020-09-01 03:14] LABS: Glucose,Whole Blood 208 mg/dL (75-99)
[2020-09-01 04:23] LABS: Anisocytosis Slight; HCT 20.5 % (39.0-53.0); HGB 7.3 gm/dL (13.0-17.5); MCHC 35.7 g/dL (31.0-37.0); MCV 95.4 fL (80.0-100.0); Macrocytosis Slight; Poikilocytosis Slight; RBC 2.15 m/uL (4.30-5.90); RDW 17.7 % (11.5-15.5); Reticulocyte % 1.9 % (0.5-2.0)
[2020-09-01 04:41] LABS: Albumin 3.2 g/dL (3.5-5.0); Calcium 7.7 mg/dL (8.4-10.2); Magnesium 3.9 mg/dL (1.6-2.3); Phosphorus 4.6 mg/dL (2.5-4.5); Potassium 4.4 mmol/L (3.5-5.1); Total Bilirubin 0.7 mg/dL (0.2-1.3)
[2020-09-01 04:45] LABS: Platelet Count 96 k/uL (150-450)
[2020-09-01 05:02] LABS: Glucose,Whole Blood 206 mg/dL (75-99)
[2020-09-01] MEDS: DEXAMETHASONE SOD PHOSPHATE 4 MG/ML 1 ML VIAL IV SCH ×4 (05:04→23:46)
[2020-09-01 05:24] LABS: INR 1.2 (<1.2); Prothrombin Time 12.1 sec (9.0-12.0)
[2020-09-01 05:25] LABS: Partial Thromboplastin Time 21.2 sec (22.0-30.0)
[2020-09-01] MEDS: AMIODARONE 300 MG in DEXTROSE 5% IN WATER 250 ML IV SCH ×4 (05:34→15:13)
[2020-09-01] MEDS: NOREPINEPHRINE 32 MG in SODIUM CHLORIDE 0.9% 218 ML IV SCH (05:38)
[2020-09-01 05:42] LABS: ABG Base Excess 1.1 mmol/L; ABG HCO3 25 mmol/L (21-25); ABG Oxygen Saturation 99.6 % (94-97); ABG PCO2 38 mmHg (35-45); ABG PH 7.44 (7.35-7.45); ABG PO2 152 mmHg (83-108); ABG TCO2 27 mmol/L (19-24); Allen Test Performed? Yes
[2020-09-01 06:14] LABS: Glucose,Whole Blood 220 mg/dL (75-99)
--- NOTE | 2020-09-01 06:27 | XR ---
EXAMINATION TYPE: XR chest 1V portable DATE OF EXAM: 09/01/2020 CLINICAL HISTORY: Difficulty breathing progress study. TECHNIQUE: Single AP portable upright view of the chest is obtained. COMPARISON: Chest x-ray from one day earlier and older studies. CT chest June 23, 2020 FINDINGS: Stable endotracheal tube, orogastric tube, and left internal jugular central venous cathet er. Persistent multifocal areas of airspace opacity greatest left hilar region and bibasilar levels. No pleural effusion or pneumothorax seen bilaterally. Cardiac silhouette size stable and upper limits of normal with atherosclerotic and ectatic aortic knob. Multilevel spurring the lower thoracic spine . IMPRESSION: Bilateral multifocal areas of acute infiltrate remain present greatest in the mid to lowe r lungs. No significant change from one day earlier.
[2020-09-01 07:00] LABS: Glucose,Whole Blood 208 mg/dL (75-99)
[2020-09-01 08:05] LABS: Glucose,Whole Blood 202 mg/dL (75-99)
[2020-09-01 08:30] LABS: Band Neutrophils % 5 %; Blast Cells # (M) 3.46 k/uL (0); Lymphocytes # (M) 1.44 k/uL (1.0-4.8); Metamyelocytes # (M) 6.34 k/uL (0); Metamyelocytes % 22 %; Monocytes # (M) 1.73 k/uL (0-1.0); Myelocytes # (M) 10.94 k/uL (0); Myelocytes % 38 %; Neutrophils % (M) 6 %; Nucleated Red Blood Cells 2 /100 WBC (0-0); Promyelocytes # (M) 1.73 k/uL (0); Promyelocytes % 6 %; Total Cells Counted 100; WBC 28.8 k/uL (3.8-10.6)
[2020-09-01 08:33] LABS: Rouleaux Present
[2020-09-01] MEDS: PIPERACILLIN-TAZOBACTAM 3.375 GM in SODIUM CHLORIDE 0.9% 100 ML IVPB SCH ×2 (08:35→21:35)
[2020-09-01] MEDS: TAMSULOSIN 0.4 MG CAP.ER.24H PO SCH ×2 (08:40→21:35)
[2020-09-01] MEDS: FUROSEMIDE 10 MG/ML 4 ML VIAL IV SCH (08:40)
[2020-09-01] MEDS: MAGNESIUM OXIDE 400 MG TAB PO SCH (08:40)
[2020-09-01] MEDS: HYDROXYUREA 500 MG CAP PO SCH ×2 (08:40→22:38)
[2020-09-01] MEDS: GABAPENTIN 100 MG CAP PO SCH ×3 (08:40→21:35)
[2020-09-01] MEDS: CHLORHEXIDINE GLUCONATE 15 ML CUP MUCOUS MEM SCH ×2 (08:40→21:34)
[2020-09-01] MEDS: POTASSIUM CHLORIDE ER 20 MEQ TAB.ER PO SCH ×2 (08:40→21:35)
[2020-09-01] MEDS: METOPROLOL TARTRATE 50 MG TAB PO SCH ×3 (08:41→21:35)
[2020-09-01 08:55] LABS: Glucose,Whole Blood 207 mg/dL (75-99)
[2020-09-01] MEDS: PANTOPRAZOLE 40 MG/10 ML VIAL IVP SCH ×2 (09:03→21:34)
[2020-09-01] MEDS: DILTIAZEM 125 MG in SODIUM CHLORIDE 0.9% 100 ML IV SCH ×2 (09:45→18:00)
[2020-09-01 10:04] LABS: Glucose,Whole Blood 203 mg/dL (75-99)
--- NOTE | 2020-09-01 10:28 | P.PN ---
Subjective This is a pleasant 75-year-old male currently undergoing chemotherapy. He is in the intensive care unit currently intubated on levophed. He continues to be in atrial fibrillation with controlled rates currently. He is sedated on propofol. Last night his heart rates were again rapid and amiodarone bolus and infusion were initiated per Dr. Acharya. Currently heart rates are in the 90's, blood pressure 129/59. Currently maintained on amiodraone, cardizem, norepinephrine and lopressor. CVP is 13. Laboratory data reviewed pH 7.44, pCO2 38 and pO2 152. Previous 24 hour output is 1875 mL giving him a positive fluid balance of 740. GENERAL: No acute distress. NECK: Supple without JVD or thyromegaly. LUNGS: Breath sounds clear to auscultation bilaterally. Respiration equal and unlabored. No wheezes, rales or rhonchi. Diminished. HEART: Irregular rate and rhythm with systolic ejection murmur at the base, no rubs or gallops. S1 and S2 heard. EXTREMITIES: Normal range of motion, no edema. No clubbing or cyanosis. Peripheral pulses intact. ASSESSMENT Paroxysmal atrial fibrillation with rapid ventricular response. Status post c ardioversion 2018 Acute on chronic diastolic heart failure, improved Aortic stenosis Hypertension Dyslipidemia Diabetes mellitus PLAN Amiodarone walks by her this evening. Initiate oral 400 mg twice a day tonight. Resume IV Lasix 40 mg daily. Prognosis guarded, further recommendations to follow. Nurse Practitioner note has been reviewed, I agree with a documented findings and plan of care. Patient was seen and examined. Objective - Vital Signs Vital signs: Vital Signs Temp 99.2 F 09/01/20 08:00 Pulse 109 H 09/01/20 09:00 Resp 24 09/01/20 09:00 BP 108/70 08/31/20 01:15 Pulse Ox 97 09/01/20 09:00 Intake & Output 08/31/20 09/01/20 09/01/20 18:59 06:59 18:59 Intake Total 6855.455 3311.775 459.828 Output Total 880 995 225 Balance 492.806 247.775 234.828 Weight 98.7 kg 100.153 kg Intake: IV 660 412 78 0.9 600 240 60 Normal Saline Pressure 60 72 18 Bag Piperacillin-Tazobactam 3 100 .375 gm In Sodium Chloride 0.9% 100 ml @ 25 mls/hr IVPB Q12HR ANA Rx #:[id number] Intake, IV Titration 582.806 550.775 264.828 Amount Diltiazem 125 mg In 180.25 92 125 Sodium Chloride 0.9% 100 ml @ 15 MG/HR 15 mls/hr IV .Q8H20M ANA Rx#: [id number] Insulin Regular 100 unit 26.210 158.940 39.828 In Sodium Chloride 0.9% 100 ml @ Per Protocol IV .Q0M ANA Rx#:[id number] Norepinephrine 32 mg In 34.006 Sodium Chloride 0.9% 218 ml @ 0.06 MCG/KG/MIN 2. 776 mls/hr IV .Q24H ANA Rx#:[id number] propofoL 1,000 mg In 376.346 265.829 100 Empty Bag 1 bag @ Titrate IV .Q0M ANA Rx#: [id number] Tube Feeding 40 190 87 Other 90 90 30 Output: Gastric Drainage 100 Urine 780 995 225 Other: Voiding Method Indwelling Catheter Indwelling Catheter Indwelling Catheter ABP, PAP, CO, CI - Last Documented Arterial Blood Pressure 129/59 - Labs CBC & Chem 7: 09/01/20 03:50 09/01/20 03:50 Labs: Abnormal Lab Results - Last 24 Hours (Table) 08/31/20 08/31/20 08/31/20 Range/Units 04:10 11:16 11:18 WBC (3.8-10.6) k/uL RBC (4.30-5.90) m/uL Hgb (13.0-17.5) gm/dL Hct (39.0-53.0) % RDW (11.5-15.5) % Plt Count (150-450) k/uL Blast Cells % % Monocytes # (Manual) (0-1.0) k/uL Metamyelocytes # (Man) (0) k/uL Myelocytes # (Manual) (0) k/uL Promyelocytes # (Man) (0) k/uL Blast Cells # (Man) (0) k/uL Nucleated RBCs (0-0) /100 WBC PT (9.0-12.0) sec INR (<1.2) APTT (22.0-30.0) sec ABG pO2 (83-108) mmHg ABG Total CO2 (19-24) mmol/L ABG O2 Saturation (94-97) % BUN (9-20) mg/dL Creatinine (0.66-1.25) mg/dL Glucose (74-99) mg/dL POC Glucose (mg/dL) 244 H (75-99) mg/dL Uric Acid (3.5-8.5) mg/dL Calcium (8.4-10.2) mg/dL Phosphorus (2.5-4.5) mg/dL Magnesium 3.6 H (1.6-2.3) mg/dL AST (17-59) U/L Lactate Dehydrogenase (313-618) U/L Total Protein (6.3-8.2) g/dL Albumin (3.5-5.0) g/dL Procalcitonin 0.76 H (0.02-0.09) ng/mL 08/31/20 08/31/20 08/31/20 Range/Units 12:05 13:18 13:59 WBC (3.8-10.6) k/uL RBC (4.30-5.90) m/uL Hgb (13.0-17.5) gm/dL Hct (39.0-53.0) % RDW (11.5-15.5) % Plt Count (150-450) k/uL Blast Cells % % Monocytes # (Manual) (0-1.0) k/uL Metamyelocytes # (Man) (0) k/uL Myelocytes # (Manual) (0) k/uL Promyelocytes # (Man) (0) k/uL Blast Cells # (Man) (0) k/uL Nucleated RBCs (0-0) /100 WBC PT (9.0-12.0) sec INR (<1.2) APTT (22.0-30.0) sec ABG pO2 (83-108) mmHg ABG Total CO2 (19-24) mmol/L ABG O2 Saturation (94-97) % BUN (9-20) mg/dL Creatinine (0.66-1.25) mg/dL Glucose (74-99) mg/dL POC Glucose (mg/dL) 248 H 205 H 192 H (75-99) mg/dL Uric Acid (3.5-8.5) mg/dL Calcium (8.4-10.2) mg/dL Phosphorus (2.5-4.5) mg/dL Magnesium (1.6-2.3) mg/dL AST (17-59) U/L Lactate Dehydrogenase (313-618) U/L Total Protein (6.3-8.2) g/dL Albumin (3.5-5.0) g/dL Procalcitonin (0.02-0.09) ng/mL 08/31/20 08/31/20 08/31/20 Range/Units 15:04 16:17 17:26 WBC (3.8-10.6) k/uL RBC (4.30-5.90) m/uL Hgb (13.0-17.5) gm/dL Hct (39.0-53.0) % RDW (11.5-15.5) % Plt Count (150-450) k/uL Blast Cells % % Monocytes # (Manual) (0-1.0) k/uL Metamyelocytes # (Man) (0) k/uL Myelocytes # (Manual) (0) k/uL Promyelocytes # (Man) (0) k/uL Blast Cells # (Man) (0) k/uL Nucleated RBCs (0-0) /100 WBC PT (9.0-12.0) sec INR (<1.2) APTT (22.0-30.0) sec ABG pO2 (83-108) mmHg ABG Total CO2 (19-24) mmol/L ABG O2 Saturation (94-97) % BUN (9-20) mg/dL Creatinine (0.66-1.25) mg/dL Glucose (74-99) mg/dL POC Glucose (mg/dL) 188 H 180 H 187 H (75-99) mg/dL Uric Acid (3.5-8.5) mg/dL Calcium (8.4-10.2) mg/dL Phosphorus (2.5-4.5) mg/dL Magnesium (1.6-2.3) mg/dL AST (17-59) U/L Lactate Dehydrogenase (313-618) U/L Total Protein (6.3-8.2) g/dL Albumin (3.5-5.0) g/dL Procalcitonin (0.02-0.09) ng/mL 08/31/20 08/31/20 08/31/20 Range/Units 18:29 18:53 20:20 WBC (3.8-10.6) k/uL RBC (4.30-5.90) m/uL Hgb (13.0-17.5) gm/dL Hct (39.0-53.0) % RDW (11.5-15.5) % Plt Count (150-450) k/uL Blast Cells % % Monocytes # (Manual) (0-1.0) k/uL Metamyelocytes # (Man) (0) k/uL Myelocytes # (Manual) (0) k/uL Promyelocytes # (Man) (0) k/uL Blast Cells # (Man) (0) k/uL Nucleated RBCs (0-0) /100 WBC PT (9.0-12.0) sec INR (<1.2) APTT (22.0-30.0) sec ABG pO2 (83-108) mmHg ABG Total CO2 (19-24) mmol/L ABG O2 Saturation (94-97) % BUN (9-20) mg/dL Creatinine (0.66-1.25) mg/dL Glucose (74-99) mg/dL POC Glucose (mg/dL) 194 H 204 H 202 H (75-99) mg/dL Uric Acid (3.5-8.5) mg/dL Calcium (8.4-10.2) mg/dL Phosphorus (2.5-4.5) mg/dL Magnesium (1.6-2.3) mg/dL AST (17-59) U/L Lactate Dehydrogenase (313-618) U/L Total Protein (6.3-8.2) g/dL Albumin (3.5-5.0) g/dL Procalcitonin (0.02-0.09) ng/mL 08/31/20 08/31/20 08/31/20 Range/Units 21:17 22:02 23:06 WBC (3.8-10.6) k/uL RBC (4.30-5.90) m/uL Hgb (13.0-17.5) gm/dL Hct (39.0-53.0) % RDW (11.5-15.5) % Plt Count (150-450) k/uL Blast Cells % % Monocytes # (Manual) (0-1.0) k/uL Metamyelocytes # (Man) (0) k/uL Myelocytes # (Manual) (0) k/uL Promyelocytes # (Man) (0) k/uL Blast Cells # (Man) (0) k/uL Nucleated RBCs (0-0) /100 WBC PT (9.0-12.0) sec INR (<1.2) APTT (22.0-30.0) sec ABG pO2 (83-108) mmHg ABG Total CO2 (19-24) mmol/L ABG O2 Saturation (94-97) % BUN (9-20) mg/dL Creatinine (0.66-1.25) mg/dL Glucose (74-99) mg/dL POC Glucose (mg/dL) 197 H 202 H 202 H (75-99) mg/dL Uric Acid (3.5-8.5) mg/dL Calcium (8.4-10.2) mg/dL Phosphorus (2.5-4.5) mg/dL Magnesium (1.6-2.3) mg/dL AST (17-59) U/L Lactate Dehydrogenase (313-618) U/L Total Protein (6.3-8.2) g/dL Albumin (3.5-5.0) g/dL Procalcitonin (0.02-0.09) ng/mL 09/01/20 09/01/20 09/01/20 Range/Units 00:14 00:59 02:05 WBC (3.8-10.6) k/uL RBC (4.30-5.90) m/uL Hgb (13.0-17.5) gm/dL Hct (39.0-53.0) % RDW (11.5-15.5) % Plt Count (150-450) k/uL Blast Cells % % Monocytes # (Manual) (0-1.0) k/uL Metamyelocytes # (Man) (0) k/uL Myelocytes # (Manual) (0) k/uL Promyelocytes # (Man) (0) k/uL Blast Cells # (Man) (0) k/uL Nucleated RBCs (0-0) /100 WBC PT (9.0-12.0) sec INR (<1.2) APTT (22.0-30.0) sec ABG pO2 (83-108) mmHg ABG Total CO2 (19-24) mmol/L ABG O2 Saturation (94-97) % BUN (9-20) mg/dL Creatinine (0.66-1.25) mg/dL Glucose (74-99) mg/dL POC Glucose (mg/dL) 223 H 210 H 232 H (75-99) mg/dL Uric Acid (3.5-8.5) mg/dL Calcium (8.4-10.2) mg/dL Phosphorus (2.5-4.5) mg/dL Magnesium (1.6-2.3) mg/dL AST (17-59) U/L Lactate Dehydrogenase (313-618) U/L Total Protein (6.3-8.2) g/dL Albumin (3.5-5.0) g/dL Procalcitonin (0.02-0.09) ng/mL 09/01/20 09/01/20 09/01/20 Range/Units 03:11 03:50 03:50 WBC (3.8-10.6) k/uL RBC (4.30-5.90) m/uL Hgb (13.0-17.5) gm/dL Hct (39.0-53.0) % RDW (11.5-15.5) % Plt Count (150-450) k/uL Blast Cells % % Monocytes # (Manual) (0-1.0) k/uL Metamyelocytes # (Man) (0) k/uL Myelocytes # (Manual) (0) k/uL Promyelocytes # (Man) (0) k/uL Blast Cells # (Man) (0) k/uL Nucleated RBCs (0-0) /100 WBC PT 12.1 H (9.0-12.0) sec INR 1.2 H (<1.2) APTT 21.2 L (22.0-30.0) sec ABG pO2 (83-108) mmHg ABG Total CO2 (19-24) mmol/L ABG O2 Saturation (94-97) % BUN 69 H (9-20) mg/dL Creatinine 1.36 H (0.66-1.25) mg/dL Glucose 194 H (74-99) mg/dL POC Glucose (mg/dL) 208 H (75-99) mg/dL Uric Acid 1.0 L (3.5-8.5) mg/dL Calcium 7.7 L (8.4-10.2) mg/dL Phosphorus 4.6 H (2.5-4.5) mg/dL Magnesium 3.9 H (1.6-2.3) mg/dL AST 82 H (17-59) U/L Lactate Dehydrogenase 9967 H (313-618) U/L Total Protein 6.0 L (6.3-8.2) g/dL Albumin 3.2 L (3.5-5.0) g/dL Procalcitonin (0.02-0.09) ng/mL 09/01/20 09/01/20 09/01/20 Range/Units 03:50 05:00 05:38 WBC 28.8 H (3.8-10.6) k/uL RBC 2.15 L (4.30-5.90) m/uL Hgb 7.3 L (13.0-17.5) gm/dL Hct 20.5 L (39.0-53.0) % RDW 17.7 H (11.5-15.5) % Plt Count 96 L (150-450) k/uL Blast Cells % 12 H* % Monocytes # (Manual) 1.73 H (0-1.0) k/uL Metamyelocytes # (Man) 6.34 H (0) k/uL Myelocytes # (Manual) 10.94 H (0) k/uL Promyelocytes # (Man) 1.73 H (0) k/uL Blast Cells # (Man) 3.46 H (0) k/uL Nucleated RBCs 2 H (0-0) /100 WBC PT (9.0-12.0) sec INR (<1.2) APTT (22.0-30.0) sec ABG pO2 152 H (83-108) mmHg ABG Total CO2 27 H (19-24) mmol/L ABG O2 Saturation 99.6 H (94-97) % BUN (9-20) mg/dL Creatinine (0.66-1.25) mg/dL Glucose (74-99) mg/dL POC Glucose (mg/dL) 206 H (75-99) mg/dL Uric Acid (3.5-8.5) mg/dL Calcium (8.4-10.2) mg/dL Phosphorus (2.5-4.5) mg/dL Magnesium (1.6-2.3) mg/dL AST (17-59) U/L Lactate Dehydrogenase (313-618) U/L Total Protein (6.3-8.2) g/dL Albumin (3.5-5.0) g/dL Procalcitonin (0.02-0.09) ng/mL 09/01/20 09/01/20 09/01/20 Range/Units 06:13 06:59 08:03 WBC (3.8-10.6) k/uL RBC (4.30-5.90) m/uL Hgb (13.0-17.5) gm/dL Hct (39.0-53.0) % RDW (11.5-15.5) % Plt Count (150-450) k/uL Blast Cells % % Monocytes # (Manual) (0-1.0) k/uL Metamyelocytes # (Man) (0) k/uL Myelocytes # (Manual) (0) k/uL Promyelocytes # (Man) (0) k/uL Blast Cells # (Man) (0) k/uL Nucleated RBCs (0-0) /100 WBC PT (9.0-12.0) sec INR (<1.2) APTT (22.0-30.0) sec ABG pO2 (83-108) mmHg ABG Total CO2 (19-24) mmol/L ABG O2 Saturation (94-97) % BUN (9-20) mg/dL Creatinine (0.66-1.25) mg/dL Glucose (74-99) mg/dL POC Glucose (mg/dL) 220 H 208 H 202 H (75-99) mg/dL Uric Acid (3.5-8.5) mg/dL Calcium (8.4-10.2) mg/dL Phosphorus (2.5-4.5) mg/dL Magnesium (1.6-2.3) mg/dL AST (17-59) U/L Lactate Dehydrogenase (313-618) U/L Total Protein (6.3-8.2) g/dL Albumin (3.5-5.0) g/dL Procalcitonin (0.02-0.09) ng/mL 09/01/20 09/01/20 Range/Units 08:54 10:03 WBC (3.8-10.6) k/uL RBC (4.30-5.90) m/uL Hgb (13.0-17.5) gm/dL Hct (39.0-53.0) % RDW (11.5-15.5) % Plt Count (150-450) k/uL Blast Cells % % Monocytes # (Manual) (0-1.0) k/uL Metamyelocytes # (Man) (0) k/uL Myelocytes # (Manual) (0) k/uL Promyelocytes # (Man) (0) k/uL Blast Cells # (Man) (0) k/uL Nucleated RBCs (0-0) /100 WBC PT (9.0-12.0) sec INR (<1.2) APTT (22.0-30.0) sec ABG pO2 (83-108) mmHg ABG Total CO2 (19-24) mmol/L ABG O2 Saturation (94-97) % BUN (9-20) mg/dL Creatinine (0.66-1.25) mg/dL Glucose (74-99) mg/dL POC Glucose (mg/dL) 207 H 203 H (75-99) mg/dL Uric Acid (3.5-8.5) mg/dL Calcium (8.4-10.2) mg/dL Phosphorus (2.5-4.5) mg/dL Magnesium (1.6-2.3) mg/dL AST (17-59) U/L Lactate Dehydrogenase (313-618) U/L Total Protein (6.3-8.2) g/dL Albumin (3.5-5.0) g/dL Procalcitonin (0.02-0.09) ng/mL Microbiology - Last 24 Hours (Table) 08/31/20 10:30 Acid Fast Bacilli Smear - Final Bronchial Washings - Random Acid Fast Bacilli Culture - Preliminary 08/30/20 21:10 Gram Stain - Preliminary Sputum Sputum Culture - Preliminary 08/31/20 10:30 Fungal Culture - Preliminary Bronchial Washings - Random 08/31/20 10:30 Bronchial Washings Culture - Preliminary Bronchial Washings - Random
[2020-09-01 11:13] LABS: Glucose,Whole Blood 181 mg/dL (75-99)
--- NOTE | 2020-09-01 12:08 | P.PN ---
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 The patient got transferred to the intensive care unit yesterday because of an acute hypoxic respiratory failu re/acute lung injury with development of bilateral pulmonary infiltrates. Note that the patient was originally hospitalized on 08/24/2024 shortness of breath and difficulty breathing. The patient is known to have chronic atrial fibrillation along with hypertension and hyperlipidemia. He was also being seen by cardiology regarding atrial fibrillation. As the patient developed breath and pulmonary infiltrates and acute hypoxic respiratory failure, the patient a chest to the intensive care unit and he was placed on a BiPAP at a pressure of 14/5 cm of water. FiO2 was as high as 90% and it was being titrated. The patient also had been placed on broad-spectrum antibiotics including IV Zosyn. He was being diuresis with IV Lasix 40 mg every 12 hours. He was on a Cardizem drip at 15 mg an hour to control atrial fibrillation. Remains on Decadron 5 mg IV every 6 hours. The chest x-ray as mentioned shows interval development of bilateral perihilar pulmonary infiltrates which are currently diffuse. The patient demonstrated gradual improvement in the white cell count from a baseline of 0.7 up to 20 and the platelet count is up to 79 with a hemoglobin of 8.0. The patient did not receive any packed RBC transfusions. The differential count shows 46% blasts. Renal function is impaired in the creatinine is 1.47 as the patient is being diuresed. Uric acid level is up to 8.9 with a calcium level of 8.3 and phosphorus level of 5.8 and LDH level was as high as 5244 indicating the possibility of a tumor lysis syndrome. Based on that, the patient was given a dose of respirator he carries yesterday and urine acid level is improved considerably. The echo from last month showed a preserved LV function with an ejection fraction of 6065%. The patient has mild MR, RV is mildly enlarged. Note that the patient over progressively more short of breath and hypoxic. At point, the patient was intubated and placed on a mechanical ventilator. I saw this patient this morning. The patient was already intubated on a mechanical ventilator on assist control mode with a rate of 24 with a tidal volume of 450 and FiO2 of 50% with a PEEP of 10. The blood gas showed a pH of 7.42 with a pC O2 of 40 and pO2 of 104. This was on FiO2 of 60%. The patient was sedated with propofol running at 75 mg per KG per minute. The patient is also on insulin at 5 units an hour for blood sugar control. The patient is on norepinephrine infusion at 0.06 units per KG per minute. Cardizem drip is running at 50 mg an hour in regards to her atrial fibrillation. The heart rate is in the order of 110-120. He is afebrile. Chest x-rays showing bilateral pulmonary infiltrates, stable compared to yesterday. immediately a bronchoscopy was done and the bronchioloalveolar lavage of the right middle lobe was collected as there was a concern of an underlying infection. The patient is currently on IV Zosyn. Lasix was discontinued. On 09/01/2020, the patient is being seen in follow-up in the intensive care unit. The patient remains intubated on a mechanical ventilator. This morning the patient is sedated with propofol at the rate of 45 g per KG per minute. The patient remains on mechanical ventilator on assist control mode at the rate of 24 with a tidal volume of 450 and FiO2 of 40% with a PEEP of 10. Blood gases from today showed a pH of 7.44 with a pCO2 of 38 and pO2 of 152. Chest x-ray still showing diffuse bilateral pulmonary infiltrates slightly improved compared to yesterday. Oxidation is also improved. Based on that, I made recommendations to gradually wean off the PEEP down to 5 cm of water. The patient unfortunately continues to be in atrial fibrillation. The patient is not adequately controlled. The patient is on a Cardizem drip at 15 mg an hour. The patient is also on amiodarone 0.5 mg an hour and the patient is also on metoprolol 100 mg by mouth 3 times a day. The patient is being supported with norepinephrine infusion for blood pressure support at the rate of 0.06 mg per KG per minute. The patient is afebrile. The patient is currently on IV Zosyn. The patient's bronchoscopy and the bronchioloalveolar lavage was done yesterday and the patient does not have any possible microbial growth for now. No fever. No chills. He is receiving daily Lasix 40 mg IV push to maintain adequate fluid balance. In terms of hematologic profile, the white cell count is up to 28 and the patient has 12% blast cells. The platelet count is at 96 with a hemoglobin of 7.3. The patient is currently on Hydrea the patient is also on Decadron. Discussed the case with oncology. We will hold off the ATRA treatment as the patient has gone into differentiation syndrome. Objective - Vital Signs Vital signs: Vital Signs Temp 99.2 F 09/01/20 08:00 Pulse 101 H 09/01/20 10:15 Resp 25 H 09/01/20 10:15 BP 108/70 08/31/20 01:15 Pulse Ox 96 09/01/20 10:15 Intake & Output 08/31/20 09/01/20 09/01/20 18:59 06:59 18:59 Intake Total 1733.734 6764.775 799.577 Output Total 880 995 775 Balance 492.806 247.775 24.577 Weight 98.7 kg 100.153 kg Intake: IV 660 412 104 0.9 600 240 80 Normal Saline Pressure 60 72 24 Bag Piperacillin-Tazobactam 3 100 .375 gm In Sodium Chloride 0.9% 100 ml @ 25 mls/hr IVPB Q12HR ANA Rx #:[id number] Intake, IV Titration 582.806 550.775 286.577 Amount Diltiazem 125 mg In 180.25 92 125 Sodium Chloride 0.9% 100 ml @ 15 MG/HR 15 mls/hr IV .Q8H20M ANA Rx#: [id number] Insulin Regular 100 unit 26.210 158.940 61.577 In Sodium Chloride 0.9% 100 ml @ Per Protocol IV .Q0M ANA Rx#:[id number] Norepinephrine 32 mg In 34.006 Sodium Chloride 0.9% 218 ml @ 0.06 MCG/KG/MIN 2. 776 mls/hr IV .Q24H ANA Rx#:[id number] propofoL 1,000 mg In 376.346 265.829 100 Empty Bag 1 bag @ Titrate IV .Q0M ANA Rx#: [id number] Tube Feeding 40 190 379 Other 90 90 30 Output: Gastric Drainage 100 Urine 780 995 775 Other: Voiding Method Indwelling Catheter Indwelling Catheter Indwelling Catheter ABP, PAP, CO, CI - Last Documented Arterial Blood Pressure 113/54 - Exam Gen. appearance the patient is currently sedated, comfortable intubated on a mechanical ventilator. The patient is sedated with propofol. Orogastric and orotracheal tube are both in place. Head exam was generally normal. There was no scleral icterus or corneal arcus. Mucous membranes were moist. Neck was supple and without jugular venous distension, thyromegaly, or carotid bruits. Carotids were easily palpable bilaterally. There was no adenopathy.the patient is a left IJ triple-lumen catheter in place. Cardiac exam revealed the PMI to be normally situated and sized. The rhythm was irregular consistent with atrial fibrillation with rapid ventricular response and no extrasystoles were noted during several minutes of auscultation. The first and second heart sounds were normal and physiologic splitting of the second heart sound was noted. There were no murmurs, rubs, clicks, or gallops. Lungs were clear to auscultation and percussion, and with normal diaphragmatic excursion. No wheezes or rales were noted. Abdominal exam revealed normal bowel sounds. The abdomen was soft, non-tender, and without masses, organomegaly, or appreciable enlargement of the abdominal aorta. Examination of the extremities revealed easily palpable radial, femoral and pedal pulses. There was no cyanosis, clubbing or edema. Examination of the skin revealed no evidence of significant rashes, suspicious appearing nevi or other concerning lesions. Neurologically the patient is sedated and the patient is calm and comfortable at this point in time. - Labs CBC & Chem 7: 09/01/20 03:50 09/01/20 03:50 Labs: Abnormal Lab Results - Last 24 Hours (Table) 08/31/20 08/31/20 08/31/20 Range/Units 04:10 12:05 13:18 WBC (3.8-10.6) k/uL RBC (4.30-5.90) m/uL Hgb (13.0-17.5) gm/dL Hct (39.0-53.0) % RDW (11.5-15.5) % Plt Count (150-450) k/uL Blast Cells % % Monocytes # (Manual) (0-1.0) k/uL Metamyelocytes # (Man) (0) k/uL Myelocytes # (Manual) (0) k/uL Promyelocytes # (Man) (0) k/uL Blast Cells # (Man) (0) k/uL Nucleated RBCs (0-0) /100 WBC PT (9.0-12.0) sec INR (<1.2) APTT (22.0-30.0) sec ABG pO2 (83-108) mmHg ABG Total CO2 (19-24) mmol/L ABG O2 Saturation (94-97) % BUN (9-20) mg/dL Creatinine (0.66-1.25) mg/dL Glucose (74-99) mg/dL POC Glucose (mg/dL) 248 H 205 H (75-99) mg/dL Uric Acid (3.5-8.5) mg/dL Calcium (8.4-10.2) mg/dL Phosphorus (2.5-4.5) mg/dL Magnesium (1.6-2.3) mg/dL AST (17-59) U/L Lactate Dehydrogenase (313-618) U/L Total Protein (6.3-8.2) g/dL Albumin (3.5-5.0) g/dL Procalcitonin 0.76 H (0.02-0.09) ng/mL 08/31/20 08/31/20 08/31/20 Range/Units 13:59 15:04 16:17 WBC (3.8-10.6) k/uL RBC (4.30-5.90) m/uL Hgb (13.0-17.5) gm/dL Hct (39.0-53.0) % RDW (11.5-15.5) % Plt Count (150-450) k/uL Blast Cells % % Monocytes # (Manual) (0-1.0) k/uL Metamyelocytes # (Man) (0) k/uL Myelocytes # (Manual) (0) k/uL Promyelocytes # (Man) (0) k/uL Blast Cells # (Man) (0) k/uL Nucleated RBCs (0-0) /100 WBC PT (9.0-12.0) sec INR (<1.2) APTT (22.0-30.0) sec ABG pO2 (83-108) mmHg ABG Total CO2 (19-24) mmol/L ABG O2 Saturation (94-97) % BUN (9-20) mg/dL Creatinine (0.66-1.25) mg/dL Glucose (74-99) mg/dL POC Glucose (mg/dL) 192 H 188 H 180 H (75-99) mg/dL Uric Acid (3.5-8.5) mg/dL Calcium (8.4-10.2) mg/dL Phosphorus (2.5-4.5) mg/dL Magnesium (1.6-2.3) mg/dL AST (17-59) U/L Lactate Dehydrogenase (313-618) U/L Total Protein (6.3-8.2) g/dL Albumin (3.5-5.0) g/dL Procalcitonin (0.02-0.09) ng/mL 08/31/20 08/31/20 08/31/20 Range/Units 17:26 18:29 18:53 WBC (3.8-10.6) k/uL RBC (4.30-5.90) m/uL Hgb (13.0-17.5) gm/dL Hct (39.0-53.0) % RDW (11.5-15.5) % Plt Count (150-450) k/uL Blast Cells % % Monocytes # (Manual) (0-1.0) k/uL Metamyelocytes # (Man) (0) k/uL Myelocytes # (Manual) (0) k/uL Promyelocytes # (Man) (0) k/uL Blast Cells # (Man) (0) k/uL Nucleated RBCs (0-0) /100 WBC PT (9.0-12.0) sec INR (<1.2) APTT (22.0-30.0) sec ABG pO2 (83-108) mmHg ABG Total CO2 (19-24) mmol/L ABG O2 Saturation (94-97) % BUN (9-20) mg/dL Creatinine (0.66-1.25) mg/dL Glucose (74-99) mg/dL POC Glucose (mg/dL) 187 H 194 H 204 H (75-99) mg/dL Uric Acid (3.5-8.5) mg/dL Calcium (8.4-10.2) mg/dL Phosphorus (2.5-4.5) mg/dL Magnesium (1.6-2.3) mg/dL AST (17-59) U/L Lactate Dehydrogenase (313-618) U/L Total Protein (6.3-8.2) g/dL Albumin (3.5-5.0) g/dL Procalcitonin (0.02-0.09) ng/mL 08/31/20 08/31/20 08/31/20 Range/Units 20:20 21:17 22:02 WBC (3.8-10.6) k/uL RBC (4.30-5.90) m/uL Hgb (13.0-17.5) gm/dL Hct (39.0-53.0) % RDW (11.5-15.5) % Plt Count (150-450) k/uL Blast Cells % % Monocytes # (Manual) (0-1.0) k/uL Metamyelocytes # (Man) (0) k/uL Myelocytes # (Manual) (0) k/uL Promyelocytes # (Man) (0) k/uL Blast Cells # (Man) (0) k/uL Nucleated RBCs (0-0) /100 WBC PT (9.0-12.0) sec INR (<1.2) APTT (22.0-30.0) sec ABG pO2 (83-108) mmHg ABG Total CO2 (19-24) mmol/L ABG O2 Saturation (94-97) % BUN (9-20) mg/dL Creatinine (0.66-1.25) mg/dL Glucose (74-99) mg/dL POC Glucose (mg/dL) 202 H 197 H 202 H (75-99) mg/dL Uric Acid (3.5-8.5) mg/dL Calcium (8.4-10.2) mg/dL Phosphorus (2.5-4.5) mg/dL Magnesium (1.6-2.3) mg/dL AST (17-59) U/L Lactate Dehydrogenase (313-618) U/L Total Protein (6.3-8.2) g/dL Albumin (3.5-5.0) g/dL Procalcitonin (0.02-0.09) ng/mL 10/04/1509/01/20 09/01/20 Range/Units 23:06 00:14 00:59 WBC (3.8-10.6) k/uL RBC (4.30-5.90) m/uL Hgb (13.0-17.5) gm/dL Hct (39.0-53.0) % RDW (11.5-15.5) % Plt Count (150-450) k/uL Blast Cells % % Monocytes # (Manual) (0-1.0) k/uL Metamyelocytes # (Man) (0) k/uL Myelocytes # (Manual) (0) k/uL Promyelocytes # (Man) (0) k/uL Blast Cells # (Man) (0) k/uL Nucleated RBCs (0-0) /100 WBC PT (9.0-12.0) sec INR (<1.2) APTT (22.0-30.0) sec ABG pO2 (83-108) mmHg ABG Total CO2 (19-24) mmol/L ABG O2 Saturation (94-97) % BUN (9-20) mg/dL Creatinine (0.66-1.25) mg/dL Glucose (74-99) mg/dL POC Glucose (mg/dL) 202 H 223 H 210 H (75-99) mg/dL Uric Acid (3.5-8.5) mg/dL Calcium (8.4-10.2) mg/dL Phosphorus (2.5-4.5) mg/dL Magnesium (1.6-2.3) mg/dL AST (17-59) U/L Lactate Dehydrogenase (313-618) U/L Total Protein (6.3-8.2) g/dL Albumin (3.5-5.0) g/dL Procalcitonin (0.02-0.09) ng/mL 09/01/20 09/01/20 09/01/20 Range/Units 02:05 03:11 03:50 WBC (3.8-10.6) k/uL RBC (4.30-5.90) m/uL Hgb (13.0-17.5) gm/dL Hct (39.0-53.0) % RDW (11.5-15.5) % Plt Count (150-450) k/uL Blast Cells % % Monocytes # (Manual) (0-1.0) k/uL Metamyelocytes # (Man) (0) k/uL Myelocytes # (Manual) (0) k/uL Promyelocytes # (Man) (0) k/uL Blast Cells # (Man) (0) k/uL Nucleated RBCs (0-0) /100 WBC PT (9.0-12.0) sec INR (<1.2) APTT (22.0-30.0) sec ABG pO2 (83-108) mmHg ABG Total CO2 (19-24) mmol/L ABG O2 Saturation (94-97) % BUN 69 H (9-20) mg/dL Creatinine 1.36 H (0.66-1.25) mg/dL Glucose 194 H (74-99) mg/dL POC Glucose (mg/dL) 232 H 208 H (75-99) mg/dL Uric Acid 1.0 L (3.5-8.5) mg/dL Calcium 7.7 L (8.4-10.2) mg/dL Phosphorus 4.6 H (2.5-4.5) mg/dL Magnesium 3.9 H (1.6-2.3) mg/dL AST 82 H (17-59) U/L Lactate Dehydrogenase 9967 H (313-618) U/L Total Protein 6.0 L (6.3-8.2) g/dL Albumin 3.2 L (3.5-5.0) g/dL Procalcitonin (0.02-0.09) ng/mL 09/01/20 09/01/20 09/01/20 Range/Units 03:50 03:50 05:00 WBC 28.8 H (3.8-10.6) k/uL RBC 2.15 L (4.30-5.90) m/uL Hgb 7.3 L (13.0-17.5) gm/dL Hct 20.5 L (39.0-53.0) % RDW 17.7 H (11.5-15.5) % Plt Count 96 L (150-450) k/uL Blast Cells % 12 H* % Monocytes # (Manual) 1.73 H (0-1.0) k/uL Metamyelocytes # (Man) 6.34 H (0) k/uL Myelocytes # (Manual) 10.94 H (0) k/uL Promyelocytes # (Man) 1.73 H (0) k/uL Blast Cells # (Man) 3.46 H (0) k/uL Nucleated RBCs 2 H (0-0) /100 WBC PT 12.1 H (9.0-12.0) sec INR 1.2 H (<1.2) APTT 21.2 L (22.0-30.0) sec ABG pO2 (83-108) mmHg ABG Total CO2 (19-24) mmol/L ABG O2 Saturation (94-97) % BUN (9-20) mg/dL Creatinine (0.66-1.25) mg/dL Glucose (74-99) mg/dL POC Glucose (mg/dL) 206 H (75-99) mg/dL Uric Acid (3.5-8.5) mg/dL Calcium (8.4-10.2) mg/dL Phosphorus (2.5-4.5) mg/dL Magnesium (1.6-2.3) mg/dL AST (17-59) U/L Lactate Dehydrogenase (313-618) U/L Total Protein (6.3-8.2) g/dL Albumin (3.5-5.0) g/dL Procalcitonin (0.02-0.09) ng/mL 09/01/20 09/01/20 09/01/20 Range/Units 05:38 06:13 06:59 WBC (3.8-10.6) k/uL RBC (4.30-5.90) m/uL Hgb (13.0-17.5) gm/dL Hct (39.0-53.0) % RDW (11.5-15.5) % Plt Count (150-450) k/uL Blast Cells % % Monocytes # (Manual) (0-1.0) k/uL Metamyelocytes # (Man) (0) k/uL Myelocytes # (Manual) (0) k/uL Promyelocytes # (Man) (0) k/uL Blast Cells # (Man) (0) k/uL Nucleated RBCs (0-0) /100 WBC PT (9.0-12.0) sec INR (<1.2) APTT (22.0-30.0) sec ABG pO2 152 H (83-108) mmHg ABG Total CO2 27 H (19-24) mmol/L ABG O2 Saturation 99.6 H (94-97) % BUN (9-20) mg/dL Creatinine (0.66-1.25) mg/dL Glucose (74-99) mg/dL POC Glucose (mg/dL) 220 H 208 H (75-99) mg/dL Uric Acid (3.5-8.5) mg/dL Calcium (8.4-10.2) mg/dL Phosphorus (2.5-4.5) mg/dL Magnesium (1.6-2.3) mg/dL AST (17-59) U/L Lactate Dehydrogenase (313-618) U/L Total Protein (6.3-8.2) g/dL Albumin (3.5-5.0) g/dL Procalcitonin (0.02-0.09) ng/mL 09/01/20 09/01/20 09/01/20 Range/Units 08:03 08:54 10:03 WBC (3.8-10.6) k/uL RBC (4.30-5.90) m/uL Hgb (13.0-17.5) gm/dL Hct (39.0-53.0) % RDW (11.5-15.5) % Plt Count (150-450) k/uL Blast Cells % % Monocytes # (Manual) (0-1.0) k/uL Metamyelocytes # (Man) (0) k/uL Myelocytes # (Manual) (0) k/uL Promyelocytes # (Man) (0) k/uL Blast Cells # (Man) (0) k/uL Nucleated RBCs (0-0) /100 WBC PT (9.0-12.0) sec INR (<1.2) APTT (22.0-30.0) sec ABG pO2 (83-108) mmHg ABG Total CO2 (19-24) mmol/L ABG O2 Saturation (94-97) % BUN (9-20) mg/dL Creatinine (0.66-1.25) mg/dL Glucose (74-99) mg/dL POC Glucose (mg/dL) 202 H 207 H 203 H (75-99) mg/dL Uric Acid (3.5-8.5) mg/dL Calcium (8.4-10.2) mg/dL Phosphorus (2.5-4.5) mg/dL Magnesium (1.6-2.3) mg/dL AST (17-59) U/L Lactate Dehydrogenase (313-618) U/L Total Protein (6.3-8.2) g/dL Albumin (3.5-5.0) g/dL Procalcitonin (0.02-0.09) ng/mL 09/01/20 Range/Units 11:12 WBC (3.8-10.6) k/uL RBC (4.30-5.90) m/uL Hgb (13.0-17.5) gm/dL Hct (39.0-53.0) % RDW (11.5-15.5) % Plt Count (150-450) k/uL Blast Cells % % Monocytes # (Manual) (0-1.0) k/uL Metamyelocytes # (Man) (0) k/uL Myelocytes # (Manual) (0) k/uL Promyelocytes # (Man) (0) k/uL Blast Cells # (Man) (0) k/uL Nucleated RBCs (0-0) /100 WBC PT (9.0-12.0) sec INR (<1.2) APTT (22.0-30.0) sec ABG pO2 (83-108) mmHg ABG Total CO2 (19-24) mmol/L ABG O2 Saturation (94-97) % BUN (9-20) mg/dL Creatinine (0.66-1.25) mg/dL Glucose (74-99) mg/dL POC Glucose (mg/dL) 181 H (75-99) mg/dL Uric Acid (3.5-8.5) mg/dL Calcium (8.4-10.2) mg/dL Phosphorus (2.5-4.5) mg/dL Magnesium (1.6-2.3) mg/dL AST (17-59) U/L Lactate Dehydrogenase (313-618) U/L Total Protein (6.3-8.2) g/dL Albumin (3.5-5.0) g/dL Procalcitonin (0.02-0.09) ng/mL Microbiology - Last 24 Hours (Table) 08/31/20 10:30 Acid Fast Bacilli Smear - Final Bronchial Washings - Random Acid Fast Bacilli Culture - Preliminary 08/30/20 21:10 Gram Stain - Preliminary Sputum Sputum Culture - Preliminary 08/31/20 10:30 Fungal Culture - Preliminary Bronchial Washings - Random 08/31/20 10:30 Bronchial Washings Culture - Preliminary Bronchial Washings - Random Assessment and Plan Plan: 1 acute hypoxic respiratory failure, with development of diffuse bilateral pulm onary infiltrates, possibly related to pneumonia/CHF versus noncardiogenic pulmonary edema including acute lung injury from various insult related to acute promyelocytic leukemia treatment. The patient got intubated on 08/30/2020 and the patient is currently on a mechanical ventilator. Chest x-ray still showing diffuse but the pulmonary infiltrates. Bronchoscopy was done today and the bronchioloalveolar lavage of the right middle lobe was collected. n. Remains on IV Zosyn. Likely that this respiratory failure is due to differentiation syndrome which is quite known to cause acute lung injury with diffuse breath and pulmonary infiltrates and hypoxic respiratory failure. 2 chronic atrial fibrillation currently on a Cardizem drip for rate control, the patient is also requiring low-dose norepinephrine infusion for blood pressure control. the patient remains also on amiodarone drip at 0.5 mg per minute and the patient is also on oral metoprolol. 3 leukopenia from which the patient recovered. 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 13 obstructive sleep apnea, history of Plan Continue ventilator support and gradually wean down the PEEP as tolerated to maintain a saturation above 90%. Would recommend upping the PEEP down to 8 and later on down to 5 Keep the patient sedated with propofol Continue Cardizem for rate control which is running at 15 mg an hour, and switched amiodarone to oral and continue the beta blockers Norepinephrine infusion for blood pressure support to maintain a mean artery pressure above 60 Continued IV Zosyn Bronchoscopy was done with the bronchioloalveolar lavage of the right middle lobe obtained to rule out any ongoing infections including the possibility of a of a opportunistic infection and the cultures are negative thus far Continue Decadron Continue Hydrea Monitor electrolytes critical condition will continue to follow make further recommendations based on the progress. This evaluation was done and morning 30 minutes. Time with Patient: Greater than 30
[2020-09-01 12:18] LABS: Glucose,Whole Blood 181 mg/dL (75-99)
[2020-09-01 13:20] LABS: Glucose,Whole Blood 181 mg/dL (75-99)
[2020-09-01 14:08] LABS: Glucose,Whole Blood 181 mg/dL (75-99)
--- NOTE | 2020-09-01 15:15 | P.PN ---
Subjective Progress Note Date: 09/01/20 Principal diagnosis: APL - Acute Hypoxic respiratory failure Patient seen and examined in ICU on ventilator today. Overall his bloodwork has stayed stable overnight, peripheral blasts at 12%. Hydreas was initiated yesterday 08/31 Objective - Vital Signs Vital signs: Vital Signs Temp 99.2 F 09/01/20 08:00 Pulse 101 H 09/01/20 10:15 Resp 25 H 09/01/20 10:15 BP 108/70 08/31/20 01:15 Pulse Ox 96 09/01/20 10:15 Intake & Output 08/31/20 09/01/20 09/01/20 18:59 06:59 18:59 Intake Total 3140.105 8919.775 972.702 Output Total 880 995 775 Balance 492.806 247.775 197.702 Weight 98.7 kg 100.153 kg Intake: IV 660 412 104 0.9 600 240 80 Normal Saline Pressure 60 72 24 Bag Piperacillin-Tazobactam 3 100 .375 gm In Sodium Chloride 0.9% 100 ml @ 25 mls/hr IVPB Q12HR ANA Rx #:[id number] Intake, IV Titration 582.806 550.775 459.702 Amount Diltiazem 125 mg In 180.25 92 125 Sodium Chloride 0.9% 100 ml @ 15 MG/HR 15 mls/hr IV .Q8H20M ANA Rx#: [id number] Insulin Regular 100 unit 26.210 158.940 113.373 In Sodium Chloride 0.9% 100 ml @ Per Protocol IV .Q0M ANA Rx#:[id number] Norepinephrine 32 mg In 34.006 21.329 Sodium Chloride 0.9% 218 ml @ 0.06 MCG/KG/MIN 2. 776 mls/hr IV .Q24H ANA Rx#:[id number] propofoL 1,000 mg In 376.346 265.829 200 Empty Bag 1 bag @ Titrate IV .Q0M ANA Rx#: [id number] Tube Feeding 40 190 379 Other 90 90 30 Output: Gastric Drainage 100 Urine 780 995 775 Other: Voiding Method Indwelling Catheter Indwelling Catheter Indwelling Catheter ABP, PAP, CO, CI - Last Documented Arterial Blood Pressure 113/54 - Exam - Constitutional Constitutional Comment(s): Ventilator - EENT Eyes: Present: EOMI ENT:ET tube - Respiratory Respiratory: bilateral: rales, rhonchi - Cardiovascular Rhythm: irregularly irregular Heart sounds: normal: S1, S2 - Gastrointestinal General gastrointestinal: Present: distended, normal bowel sounds, soft - Integumentary Integumentary: Present: normal - Neurologic Neurologic:KARSTEN - Musculoskeletal Musculoskeletal:Atrophy noted to muscles, KARSTEN strength - Psychiatric Psychiatric: KARSTEN - Labs CBC & Chem 7: 09/01/20 03:50 09/01/20 03:50 Labs: Abnormal Lab Results - Last 24 Hours (Table) 08/31/20 08/31/20 08/31/20 Range/Units 04:10 15:04 16:17 WBC (3.8-10.6) k/uL RBC (4.30-5.90) m/uL Hgb (13.0-17.5) gm/dL Hct (39.0-53.0) % RDW (11.5-15.5) % Plt Count (150-450) k/uL Blast Cells % % Monocytes # (Manual) (0-1.0) k/uL Metamyelocytes # (Man) (0) k/uL Myelocytes # (Manual) (0) k/uL Promyelocytes # (Man) (0) k/uL Blast Cells # (Man) (0) k/uL Nucleated RBCs (0-0) /100 WBC PT (9.0-12.0) sec INR (<1.2) APTT (22.0-30.0) sec ABG pO2 (83-108) mmHg ABG Total CO2 (19-24) mmol/L ABG O2 Saturation (94-97) % BUN (9-20) mg/dL Creatinine (0.66-1.25) mg/dL Glucose (74-99) mg/dL POC Glucose (mg/dL) 188 H 180 H (75-99) mg/dL Uric Acid (3.5-8.5) mg/dL Calcium (8.4-10.2) mg/dL Phosphorus (2.5-4.5) mg/dL Magnesium (1.6-2.3) mg/dL AST (17-59) U/L Lactate Dehydrogenase (313-618) U/L Total Protein (6.3-8.2) g/dL Albumin (3.5-5.0) g/dL Procalcitonin 0.76 H (0.02-0.09) ng/mL 08/31/20 08/31/20 08/31/20 Range/Units 17:26 18:29 18:53 WBC (3.8-10.6) k/uL RBC (4.30-5.90) m/uL Hgb (13.0-17.5) gm/dL Hct (39.0-53.0) % RDW (11.5-15.5) % Plt Count (150-450) k/uL Blast Cells % % Monocytes # (Manual) (0-1.0) k/uL Metamyelocytes # (Man) (0) k/uL Myelocytes # (Manual) (0) k/uL Promyelocytes # (Man) (0) k/uL Blast Cells # (Man) (0) k/uL Nucleated RBCs (0-0) /100 WBC PT (9.0-12.0) sec INR (<1.2) APTT (22.0-30.0) sec ABG pO2 (83-108) mmHg ABG Total CO2 (19-24) mmol/L ABG O2 Saturation (94-97) % BUN (9-20) mg/dL Creatinine (0.66-1.25) mg/dL Glucose (74-99) mg/dL POC Glucose (mg/dL) 187 H 194 H 204 H (75-99) mg/dL Uric Acid (3.5-8.5) mg/dL Calcium (8.4-10.2) mg/dL Phosphorus (2.5-4.5) mg/dL Magnesium (1.6-2.3) mg/dL AST (17-59) U/L Lactate Dehydrogenase (313-618) U/L Total Protein (6.3-8.2) g/dL Albumin (3.5-5.0) g/dL Procalcitonin (0.02-0.09) ng/mL 08/31/20 08/31/20 08/31/20 Range/Units 20:20 21:17 22:02 WBC (3.8-10.6) k/uL RBC (4.30-5.90) m/uL Hgb (13.0-17.5) gm/dL Hct (39.0-53.0) % RDW (11.5-15.5) % Plt Count (150-450) k/uL Blast Cells % % Monocytes # (Manual) (0-1.0) k/uL Metamyelocytes # (Man) (0) k/uL Myelocytes # (Manual) (0) k/uL Promyelocytes # (Man) (0) k/uL Blast Cells # (Man) (0) k/uL Nucleated RBCs (0-0) /100 WBC PT (9.0-12.0) sec INR (<1.2) APTT (22.0-30.0) sec ABG pO2 (83-108) mmHg ABG Total CO2 (19-24) mmol/L ABG O2 Saturation (94-97) % BUN (9-20) mg/dL Creatinine (0.66-1.25) mg/dL Glucose (74-99) mg/dL POC Glucose (mg/dL) 202 H 197 H 202 H (75-99) mg/dL Uric Acid (3.5-8.5) mg/dL Calcium (8.4-10.2) mg/dL Phosphorus (2.5-4.5) mg/dL Magnesium (1.6-2.3) mg/dL AST (17-59) U/L Lactate Dehydrogenase (313-618) U/L Total Protein (6.3-8.2) g/dL Albumin (3.5-5.0) g/dL Procalcitonin (0.02-0.09) ng/mL 08/31/20 09/01/20 09/01/20 Range/Units 23:06 00:14 00:59 WBC (3.8-10.6) k/uL RBC (4.30-5.90) m/uL Hgb (13.0-17.5) gm/dL Hct (39.0-53.0) % RDW (11.5-15.5) % Plt Count (150-450) k/uL Blast Cells % % Monocytes # (Manual) (0-1.0) k/uL Metamyelocytes # (Man) (0) k/uL Myelocytes # (Manual) (0) k/uL Promyelocytes # (Man) (0) k/uL Blast Cells # (Man) (0) k/uL Nucleated RBCs (0-0) /100 WBC PT (9.0-12.0) sec INR (<1.2) APTT (22.0-30.0) sec ABG pO2 (83-108) mmHg ABG Total CO2 (19-24) mmol/L ABG O2 Saturation (94-97) % BUN (9-20) mg/dL Creatinine (0.66-1.25) mg/dL Glucose (74-99) mg/dL POC Glucose (mg/dL) 202 H 223 H 210 H (75-99) mg/dL Uric Acid (3.5-8.5) mg/dL Calcium (8.4-10.2) mg/dL Phosphorus (2.5-4.5) mg/dL Magnesium (1.6-2.3) mg/dL AST (17-59) U/L Lactate Dehydrogenase (313-618) U/L Total Protein (6.3-8.2) g/dL Albumin (3.5-5.0) g/dL Procalcitonin (0.02-0.09) ng/mL 09/01/20 09/01/20 09/01/20 Range/Units 02:05 03:11 03:50 WBC (3.8-10.6) k/uL RBC (4.30-5.90) m/uL Hgb (13.0-17.5) gm/dL Hct (39.0-53.0) % RDW (11.5-15.5) % Plt Count (150-450) k/uL Blast Cells % % Monocytes # (Manual) (0-1.0) k/uL Metamyelocytes # (Man) (0) k/uL Myelocytes # (Manual) (0) k/uL Promyelocytes # (Man) (0) k/uL Blast Cells # (Man) (0) k/uL Nucleated RBCs (0-0) /100 WBC PT (9.0-12.0) sec INR (<1.2) APTT (22.0-30.0) sec ABG pO2 (83-108) mmHg ABG Total CO2 (19-24) mmol/L ABG O2 Saturation (94-97) % BUN 69 H (9-20) mg/dL Creatinine 1.36 H (0.66-1.25) mg/dL Glucose 194 H (74-99) mg/dL POC Glucose (mg/dL) 232 H 208 H (75-99) mg/dL Uric Acid 1.0 L (3.5-8.5) mg/dL Calcium 7.7 L (8.4-10.2) mg/dL Phosphorus 4.6 H (2.5-4.5) mg/dL Magnesium 3.9 H (1.6-2.3) mg/dL AST 82 H (17-59) U/L Lactate Dehydrogenase 9967 H (313-618) U/L Total Protein 6.0 L (6.3-8.2) g/dL Albumin 3.2 L (3.5-5.0) g/dL Procalcitonin (0.02-0.09) ng/mL 09/01/20 09/01/20 09/01/20 Range/Units 03:50 03:50 05:00 WBC 28.8 H (3.8-10.6) k/uL RBC 2.15 L (4.30-5.90) m/uL Hgb 7.3 L (13.0-17.5) gm/dL Hct 20.5 L (39.0-53.0) % RDW 17.7 H (11.5-15.5) % Plt Count 96 L (150-450) k/uL Blast Cells % 12 H* % Monocytes # (Manual) 1.73 H (0-1.0) k/uL Metamyelocytes # (Man) 6.34 H (0) k/uL Myelocytes # (Manual) 10.94 H (0) k/uL Promyelocytes # (Man) 1.73 H (0) k/uL Blast Cells # (Man) 3.46 H (0) k/uL Nucleated RBCs 2 H (0-0) /100 WBC PT 12.1 H (9.0-12.0) sec INR 1.2 H (<1.2) APTT 21.2 L (22.0-30.0) sec ABG pO2 (83-108) mmHg ABG Total CO2 (19-24) mmol/L ABG O2 Saturation (94-97) % BUN (9-20) mg/dL Creatinine (0.66-1.25) mg/dL Glucose (74-99) mg/dL POC Glucose (mg/dL) 206 H (75-99) mg/dL Uric Acid (3.5-8.5) mg/dL Calcium (8.4-10.2) mg/dL Phosphorus (2.5-4.5) mg/dL Magnesium (1.6-2.3) mg/dL AST (17-59) U/L Lactate Dehydrogenase (313-618) U/L Total Protein (6.3-8.2) g/dL Albumin (3.5-5.0) g/dL Procalcitonin (0.02-0.09) ng/mL 09/01/20 09/01/20 09/01/20 Range/Units 05:38 06:13 06:59 WBC (3.8-10.6) k/uL RBC (4.30-5.90) m/uL Hgb (13.0-17.5) gm/dL Hct (39.0-53.0) % RDW (11.5-15.5) % Plt Count (150-450) k/uL Blast Cells % % Monocytes # (Manual) (0-1.0) k/uL Metamyelocytes # (Man) (0) k/uL Myelocytes # (Manual) (0) k/uL Promyelocytes # (Man) (0) k/uL Blast Cells # (Man) (0) k/uL Nucleated RBCs (0-0) /100 WBC PT (9.0-12.0) sec INR (<1.2) APTT (22.0-30.0) sec ABG pO2 152 H (83-108) mmHg ABG Total CO2 27 H (19-24) mmol/L ABG O2 Saturation 99.6 H (94-97) % BUN (9-20) mg/dL Creatinine (0.66-1.25) mg/dL Glucose (74-99) mg/dL POC Glucose (mg/dL) 220 H 208 H (75-99) mg/dL Uric Acid (3.5-8.5) mg/dL Calcium (8.4-10.2) mg/dL Phosphorus (2.5-4.5) mg/dL Magnesium (1.6-2.3) mg/dL AST (17-59) U/L Lactate Dehydrogenase (313-618) U/L Total Protein (6.3-8.2) g/dL Albumin (3.5-5.0) g/dL Procalcitonin (0.02-0.09) ng/mL 09/01/20 09/01/20 09/01/20 Range/Units 08:03 08:54 10:03 WBC (3.8-10.6) k/uL RBC (4.30-5.90) m/uL Hgb (13.0-17.5) gm/dL Hct (39.0-53.0) % RDW (11.5-15.5) % Plt Count (150-450) k/uL Blast Cells % % Monocytes # (Manual) (0-1.0) k/uL Metamyelocytes # (Man) (0) k/uL Myelocytes # (Manual) (0) k/uL Promyelocytes # (Man) (0) k/uL Blast Cells # (Man) (0) k/uL Nucleated RBCs (0-0) /100 WBC PT (9.0-12.0) sec INR (<1.2) APTT (22.0-30.0) sec ABG pO2 (83-108) mmHg ABG Total CO2 (19-24) mmol/L ABG O2 Saturation (94-97) % BUN (9-20) mg/dL Creatinine (0.66-1.25) mg/dL Glucose (74-99) mg/dL POC Glucose (mg/dL) 202 H 207 H 203 H (75-99) mg/dL Uric Acid (3.5-8.5) mg/dL Calcium (8.4-10.2) mg/dL Phosphorus (2.5-4.5) mg/dL Magnesium (1.6-2.3) mg/dL AST (17-59) U/L Lactate Dehydrogenase (313-618) U/L Total Protein (6.3-8.2) g/dL Albumin (3.5-5.0) g/dL Procalcitonin (0.02-0.09) ng/mL 09/01/20 09/01/20 09/01/20 Range/Units 11:12 12:16 13:19 WBC (3.8-10.6) k/uL RBC (4.30-5.90) m/uL Hgb (13.0-17.5) gm/dL Hct (39.0-53.0) % RDW (11.5-15.5) % Plt Count (150-450) k/uL Blast Cells % % Monocytes # (Manual) (0-1.0) k/uL Metamyelocytes # (Man) (0) k/uL Myelocytes # (Manual) (0) k/uL Promyelocytes # (Man) (0) k/uL Blast Cells # (Man) (0) k/uL Nucleated RBCs (0-0) /100 WBC PT (9.0-12.0) sec INR (<1.2) APTT (22.0-30.0) sec ABG pO2 (83-108) mmHg ABG Total CO2 (19-24) mmol/L ABG O2 Saturation (94-97) % BUN (9-20) mg/dL Creatinine (0.66-1.25) mg/dL Glucose (74-99) mg/dL POC Glucose (mg/dL) 181 H 181 H 181 H (75-99) mg/dL Uric Acid (3.5-8.5) mg/dL Calcium (8.4-10.2) mg/dL Phosphorus (2.5-4.5) mg/dL Magnesium (1.6-2.3) mg/dL AST (17-59) U/L Lactate Dehydrogenase (313-618) U/L Total Protein (6.3-8.2) g/dL Albumin (3.5-5.0) g/dL Procalcitonin (0.02-0.09) ng/mL 09/01/20 Range/Units 14:06 WBC (3.8-10.6) k/uL RBC (4.30-5.90) m/uL Hgb (13.0-17.5) gm/dL Hct (39.0-53.0) % RDW (11.5-15.5) % Plt Count (150-450) k/uL Blast Cells % % Monocytes # (Manual) (0-1.0) k/uL Metamyelocytes # (Man) (0) k/uL Myelocytes # (Manual) (0) k/uL Promyelocytes # (Man) (0) k/uL Blast Cells # (Man) (0) k/uL Nucleated RBCs (0-0) /100 WBC PT (9.0-12.0) sec INR (<1.2) APTT (22.0-30.0) sec ABG pO2 (83-108) mmHg ABG Total CO2 (19-24) mmol/L ABG O2 Saturation (94-97) % BUN (9-20) mg/dL Creatinine (0.66-1.25) mg/dL Glucose (74-99) mg/dL POC Glucose (mg/dL) 181 H (75-99) mg/dL Uric Acid (3.5-8.5) mg/dL Calcium (8.4-10.2) mg/dL Phosphorus (2.5-4.5) mg/dL Magnesium (1.6-2.3) mg/dL AST (17-59) U/L Lactate Dehydrogenase (313-618) U/L Total Protein (6.3-8.2) g/dL Albumin (3.5-5.0) g/dL Procalcitonin (0.02-0.09) ng/mL Microbiology - Last 24 Hours (Table) 08/31/20 10:30 Acid Fast Bacilli Smear - Final Bronchial Washings - Random Acid Fast Bacilli Culture - Preliminary 08/30/20 21:10 Gram Stain - Preliminary Sputum Sputum Culture - Preliminary 08/31/20 10:30 Fungal Culture - Preliminary Bronchial Washings - Random 08/31/20 10:30 Bronchial Washings Culture - Preliminary Bronchial Washings - Random Assessment and Plan Plan: Assessment and Recommendations: 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 Daily monitoring of bloodwork: - Coags, Fibrinogen - CBC with Diff - CMP, Mag, Phos - Uric Acid, LDH Need to keep magnesium >1.8mg/dl and K+ >4mmol/L. Status post Elitek on 08/26 and 08/30 SCDs for DVT prophylaxis Supportive medications ordered for possible side effects. 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 Hoping to restart 24- 48 hour, continue Hydrea in the interim. 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 - Pulmonary following and Bronchoscopy will be done today - IV Zosyn treatment for potential pneumonia. - Pulm to perform Bronchoscopy today - Continue on Steroids/PPI Physician Attest: I have completed the full history and physical and developed the full impression and plan, agree with above dictation, dictated as a scribe.
[2020-09-01 15:20] LABS: Glucose,Whole Blood 171 mg/dL (75-99)
--- NOTE | 2020-09-01 15:23 | P.PN ---
Progress Note - Text Progress Note Date: 09/01/20 Presenting complaint: Tired Interval history: This is a patient who was recently diagnosed with promyelocytic leukemia. On chemotherapy. Went to CHF and atrial fibrillation with rapid ventricular rate. Transferred to telemetry floor. 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 started on IV dexamethasone. Put on a Cardizem drip. Requiring high flow oxygen. Given IV Lasix. On August [address] on BiPAP, transferred to ICU. Intubated Today-ICU-2 feeding started at 10 mL an hour. Did undergo bronchoscopy. On the ventilator. FiO2 15 of PEEP of 10. Drips include levo fed, propofol, insulin, Cardizem. Patient isn't A. fib with a variable heart rate. acute kidney injury-ATN. Today-intubated. FiO2 40 PEEP of 5. Remains in atrial flutter. Drips include amiodarone, levo fed, Cardizem, insulin. 2 feeding. Review of systems: Patient intubated Active Medications Hydrocodone Bitart/Acetaminophen (Hydrocodone/Apap 10-325mg 1 Each Tab) 1 each PO QID PRN PRN Reason: Pain Last Admin: 08/30/20 04:18 Dose: 1 each Documented by: Al Hydroxide/Mg Hydroxide (Mag Hydrox/Al Hydrox/Simeth 30 Ml Cup) 30 ml PO Q4HR PRN PRN Reason: GI Upset Last Admin: 08/29/20 02:27 Dose: 30 ml Documented by: Amiodarone HCl (Amiodarone 200 Mg Tab) 400 mg PO BID [facility] Atorvastatin Calcium (Atorvastatin 10 Mg Tab) 10 mg PO HS [facility] Last Admin: 08/31/20 20:23 Dose: 10 mg Documented by: Chlorhexidine Gluconate (Chlorhexidine Gluconate 15 Ml Cup) 15 ml MUCOUS MEM BID [facility] Last Admin: 09/01/20 08:40 Dose: 15 ml Documented by: Dexamethasone Sodium Phosphate (Dexamethasone Sod Phosphate 4 Mg/Ml 1 Ml Vial) 5 mg IV Q6HR [facility] Last Admin: 09/01/20 13:37 Dose: 5 mg Documented by: Furosemide (Furosemide 10 Mg/Ml 4 Ml Vial) 40 mg IV DAILY [facility] Last Admin: 09/01/20 08:40 Dose: 40 mg Documented by: Gabapentin (Gabapentin 100 Mg Cap) 100 mg PO TID [facility] Last Admin: 09/01/20 08:40 Dose: 100 mg Documented by: Hydroxyurea (Hydroxyurea 500 Mg Cap) 500 mg PO BID [facility] Last Admin: 09/01/20 08:40 Dose: 500 mg Documented by: Diltiazem HCl 125 mg/ Sodium (Chloride) 125 mls @ 15 mls/hr IV .Q8H20M [facility] Last Admin: 09/01/20 09:45 Dose: 15 mg/hr, 15 mls/hr Documented by: Piperacillin Sod/Tazobactam (Sod 3.375 gm/ Sodium Chloride) 100 mls @ 25 mls/hr IVPB Q12HR ANA Last Admin: 09/01/20 08:35 Dose: 25 mls/hr Documented by: Propofol 1,000 mg/ IV Solution 100 mls @ 0 mls/hr IV .Q0M [facility]; Protocol Last Admin: 09/01/20 13:37 Dose: 45 mcg/kg/min, 27.041 mls/hr Documented by: Insulin Human Regular 100 unit (/ Sodium Chloride) 101 mls @ 0 mls/hr IV .Q0M [facility]; Protocol Last Titration: 09/01/20 15:11 Dose: 17 units/hr, 17.17 mls/hr Documented by: Norepinephrine Bitartrate 32 (mg/ Sodium Chloride) 250 mls @ 2.776 mls/hr IV .Q24H [facility]; Protocol Last Titration: 09/01/20 13:19 Dose: 0.04 mcg/kg/min, 1.851 mls/hr Documented by: Amiodarone HCl 300 mg/ (Dextrose/Water) 250 mls @ 25 mls/hr IV .Q10H [facility]; Protocol Stop: 09/01/20 23:51 Last Admin: 09/01/20 15:13 Dose: 0.5 mg/min, 25 mls/hr Documented by: Insulin Human Regular (Insulin Regular Bolus (From Drip Bag)) 9.9 unit 0.1 unit/kg (9.9 unit) IV ONCE PRN PRN Reason: Blood Sugar - High Stop: 09/30/20 21:00 Magnesium Oxide (Magnesium Oxide 400 Mg Tab) 400 mg PO DAILY [facility] Last Admin: 09/01/20 08:40 Dose: 400 mg Documented by: Metoprolol Tartrate (Metoprolol Tartrate 50 Mg Tab) 100 mg PO TID [facility] Last Admin: 09/01/20 08:41 Dose: 100 mg Documented by: Miscellaneous Information (Potassium Replacement Protocol 1 Each Misc) 1 each MISCELLANE DAILY PRN; Protocol PRN Reason: Per Protocol Miscellaneous Information (Magnesium Replacement Protocol 1 Each Misc) 1 each MISCELLANE DAILY PRN; Protocol PRN Reason: Per Protocol Pantoprazole Sodium (Pantoprazole 40 Mg/10 Ml Vial) 40 mg IVP BID [facility] Last Admin: 09/01/20 09:03 Dose: 40 mg Documented by: Potassium Chloride (Potassium Chloride Er 20 Meq Tab.Er) 20 meq PO BID [facility] Last Admin: 09/01/20 08:40 Dose: 20 meq Documented by: Tamsulosin HCl (Tamsulosin 0.4 Mg Cap.Er.24h) 0.4 mg PO BID [facility] Last Admin: 09/01/20 08:40 Dose: 0.4 mg Documented by: On examination: VITAL SIGNS: 99.2, 110, 24, 92 x 52, GENERAL APPEARANCE: Laying in bed, intubated HEENT: Endotracheal tube EYES: Pupils equal. Conjunctiva normal. NECK: JVD unable to assess. Mass not palpable. RESPIRATORY: Respiratory effort increased. , decreased breath sounds. CARDIOVASCULAR: Heart sounds irregular some edema.. ABDOMEN: Soft. Liver and spleen not palpable. No tenderness. No mass palpable. PSYCHIATRY: Sedated INVESTIGATIONS, reviewed in the clinical context: White count 28.8 hemoglobin 7.3 platelets 96 blast cells 12% potassium 4.4 creatinine 1.36 LDH 9967 Chest x-ray film-bilateral infiltrates Previous testing White count 1.5 hemoglobin 8.3 platelets 52 blast cells 30% Potassium 3.8 creatinine 1.24 blood glucose 276 lactic acid 3.5 uric acid 1.3 Chest x-ray film personally reviewed by ok-pulmonary edema 2-D echocardiogram from last month showed EF 60-65% Assessment: -Persistent atrial flutter-fibrillation with a rapid ventricular rate, uncontrolled -Acute congestive heart failure exacerbation from diastolic dysfunction EF 60- 65%, precipitated by atrial flutter fibrillation with a rapid ventricular rate- improved -Acute hypoxic respiratory failure requiring ventilator support.-Slow to respond -Possible pneumonia. Though infiltrates could be from leukocytes from the diffe rential syndrome. - Differential syndrome with treatment of APL with arsenic trioxide-slow to respond -Hypotensive shock-requiring pressor support -Diabetes mellitus type 2, uncontrolled with hyperglycemia secondary to steroids -Essential hypertension -Hyperlipidemia -Primary osteoarthritis -Obstructive sleep apnea uses CPAP -Childhood polio -Obstructive sleep apnea uses CPAP -Primary osteoarthritis -Promyelocytic leukemia-started on induction treatment with arsenic trioxide and Atra -Acute kidney injury, ATN-slow to respond Plan: Patient currently and IV Cardizem drip, hydroxyurea, insulin drip, Lopressor, levo fed drip, IV Zosyn, propofol, Cardizem-remains critical in the ICU.
[2020-09-01 17:08] LABS: Glucose,Whole Blood 179 mg/dL (75-99)
[2020-09-01 18:51] LABS: Glucose,Whole Blood 184 mg/dL (75-99)
[2020-09-01 19:59] LABS: Glucose,Whole Blood 180 mg/dL (75-99)
[2020-09-01 21:09] LABS: Glucose,Whole Blood 169 mg/dL (75-99)
[2020-09-01] MEDS: AMIODARONE 200 MG TAB PO SCH (21:34)
[2020-09-01] MEDS: ATORVASTATIN 10 MG TAB PO SCH (21:34)
[2020-09-01 22:03] LABS: Glucose,Whole Blood 165 mg/dL (75-99)
[2020-09-01 23:02] LABS: Glucose,Whole Blood 167 mg/dL (75-99)
[2020-09-02 00:21] LABS: Glucose,Whole Blood 146 mg/dL (75-99)
[2020-09-02] MEDS: DILTIAZEM 125 MG in SODIUM CHLORIDE 0.9% 100 ML IV SCH ×3 (01:23→17:40)
[2020-09-02 01:24] LABS: Glucose,Whole Blood 143 mg/dL (75-99)
[2020-09-02 02:03] LABS: Glucose,Whole Blood 136 mg/dL (75-99)
[2020-09-02 03:05] LABS: Glucose,Whole Blood 203 mg/dL (75-99)
[2020-09-02 03:35] LABS: Glucose,Whole Blood 199 mg/dL (75-99)
[2020-09-02 04:01] LABS: Glucose,Whole Blood 204 mg/dL (75-99)
[2020-09-02] MEDS: HYDROcodone/APAP 10-325MG 1 EACH TAB PO PRN (04:18)
[2020-09-02 04:21] LABS: Anisocytosis Slight; HCT 21.2 % (39.0-53.0); HGB 7.5 gm/dL (13.0-17.5); MCH 34.4 pg (25.0-35.0); MCHC 35.7 g/dL (31.0-37.0); MCV 96.4 fL (80.0-100.0); Macrocytosis Slight; Mean Platelet Volume 9.3; Poikilocytosis Slight; RBC 2.19 m/uL (4.30-5.90); RDW 18.2 % (11.5-15.5)
[2020-09-02 04:24] LABS: Albumin 3.1 g/dL (3.5-5.0); Calcium 7.7 mg/dL (8.4-10.2); Magnesium 3.3 mg/dL (1.6-2.3); Phosphorus 4.4 mg/dL (2.5-4.5); Potassium 4.4 mmol/L (3.5-5.1); Total Bilirubin 0.9 mg/dL (0.2-1.3); Total Protein 5.8 g/dL (6.3-8.2); Uric Acid 1.8 mg/dL (3.5-8.5)
[2020-09-02] MEDS: INSULIN REGULAR 100 UNIT in SODIUM CHLORIDE 0.9% 100 ML IV SCH ×3 (04:38→20:28)
[2020-09-02 04:42] LABS: INR 1.2 (<1.2); Prothrombin Time 11.8 sec (9.0-12.0)
[2020-09-02 04:46] LABS: Partial Thromboplastin Time 20.9 sec (22.0-30.0)
[2020-09-02 05:12] LABS: ABG Base Excess 1.6 mmol/L; ABG HCO3 25 mmol/L (21-25); ABG Oxygen Saturation 98.7 % (94-97); ABG PCO2 34 mmHg (35-45); ABG PH 7.47 (7.35-7.45); ABG PO2 110 mmHg (83-108); ABG TCO2 26 mmol/L (19-24); Allen Test Performed? Yes
[2020-09-02 05:20] LABS: Glucose,Whole Blood 190 mg/dL (75-99)
[2020-09-02 06:05] LABS: Glucose,Whole Blood 186 mg/dL (75-99)
[2020-09-02] MEDS: DEXAMETHASONE SOD PHOSPHATE 4 MG/ML 1 ML VIAL IV SCH ×3 (06:05→18:42)
--- NOTE | 2020-09-02 07:07 | XR ---
EXAMINATION TYPE: XR chest 1V portable DATE OF EXAM: 09/02/2020 COMPARISON: 09/01/2020 HISTORY: SOB, Follow Up FINDINGS: Indwelling tubes and catheters are unchanged. Multifocal areas of infiltrate periHilar and basilar regions remains unchanged. Stable appearance of the cardio-mediastinal structures at this time. Pleural effusion unchanged. IMPRESSION: 1. Stable portable chest. Clinical correlation and follow up until resolution is recommended.
[2020-09-02 07:09] LABS: Glucose,Whole Blood 169 mg/dL (75-99)
[2020-09-02 07:52] LABS: Glucose,Whole Blood 147 mg/dL (75-99)
[2020-09-02] MEDS: CHLORHEXIDINE GLUCONATE 15 ML CUP MUCOUS MEM SCH ×2 (08:12→20:43)
[2020-09-02] MEDS: AMIODARONE 200 MG TAB PO SCH ×2 (08:12→20:43)
[2020-09-02] MEDS: FUROSEMIDE 10 MG/ML 4 ML VIAL IV SCH (08:12)
[2020-09-02] MEDS: PANTOPRAZOLE 40 MG/10 ML VIAL IVP SCH ×2 (08:13→20:43)
[2020-09-02] MEDS: GABAPENTIN 100 MG CAP PO SCH ×3 (08:13→20:43)
[2020-09-02] MEDS: METOPROLOL TARTRATE 50 MG TAB PO SCH ×3 (08:13→20:43)
[2020-09-02] MEDS: PIPERACILLIN-TAZOBACTAM 3.375 GM in SODIUM CHLORIDE 0.9% 100 ML IVPB SCH ×2 (08:14→21:01)
[2020-09-02] MEDS: TAMSULOSIN 0.4 MG CAP.ER.24H PO SCH ×2 (08:14→20:43)
[2020-09-02] MEDS: POTASSIUM CHLORIDE ER 20 MEQ TAB.ER PO SCH ×2 (08:14→20:43)
[2020-09-02] MEDS: HYDROXYUREA 500 MG CAP PO SCH ×3 (08:35→22:46)
[2020-09-02] MEDS: MAGNESIUM OXIDE 400 MG TAB PO SCH (08:35)
[2020-09-02 08:59] LABS: Band Neutrophils % 2 %; Blast Cells # (M) 14.26 k/uL (0); Lymphocytes # (M) 1.58 k/uL (1.0-4.8); Metamyelocytes # (M) 0.79 k/uL (0); Metamyelocytes % 3 %; Monocytes # (M) 1.85 k/uL (0-1.0); Myelocytes % 11 %; Neutrophils % (M) 17 %; Nucleated Red Blood Cells 3 /100 WBC (0-0); Total Cells Counted 100; WBC 26.4 k/uL (3.8-10.6)
[2020-09-02] MEDS ORDERED: DIGOXIN 125 MCG TAB PO SCH (09:00)
[2020-09-02 09:05] LABS: Platelet Count 91 k/uL (150-450)
[2020-09-02 09:09] LABS: Glucose,Whole Blood 161 mg/dL (75-99)
--- NOTE | 2020-09-02 09:43 | P.PN ---
Subjective This is a pleasant 75-year-old male currently undergoing chemotherapy. He is in the intensive care unit currently intubated on levophed. He continues to be atrial flutter with rapid rates. Currently up around 140. He appears comfortably on IV sedation. Blood pressure 126/64, CVP 11. Currently on oral amiodarone and lopressor and IV cardizem. Laboratory data reviewed, WBC 26.4, hemoglobin 7.5, platelets 91, INR 1.2, sodium 143, potassium 4.4, creatinine 1.05, magnesium 3.3, lactate 13,351. Chest x-ray this morning reveals multifoca l areas of infiltrate unchanged. GENERAL: No acute distress. NECK: Supple without JVD or thyromegaly. LUNGS: Bibasilar rales, no wheezes or rhonchi Respiration equal and unlabored. Diminished. HEART: Irregular rate and rhythm with systolic ejection murmur at the base, no rubs or gallops. S1 and S2 heard. EXTREMITIES: Normal range of motion, bilateral lower extremity trace pitting edema. No clubbing or cyanosis. Peripheral pulses intact. ASSESSMENT Paroxysmal atrial fibrillation with rapid ventricular response. Status post cardioversion 2018 Acute on chronic diastolic heart failure, improved Aortic stenosis Hypertension Dyslipidemia Diabetes mellitus PLAN Add digoxin 125 mcg for rate control. Continue daily Lasix. Repeat limited echo to assess for pericardial effusion as well as . Prognosis guarded, further recommendations to follow. Nurse Practitioner note has been reviewed, I agree with a documented findings and plan of care. Patient was seen and examined. Objective - Vital Signs Vital signs: Vital Signs Temp 99.3 F 09/02/20 08:00 Pulse 110 H 09/02/20 09:00 Resp 21 09/02/20 09:00 BP 92/78 09/02/20 08:00 Pulse Ox 97 09/02/20 09:00 Intake & Output 09/01/20 09/02/20 09/02/20 18:59 06:59 18:59 Intake Total 2065.157 1346.620 581.565 Output Total 1820 1250 655 Balance 245.157 96.620 -73.435 Weight 101.6 kg Intake: IV 412 412 178 0.9 240 240 60 Normal Saline Pressure 72 72 18 Bag Piperacillin-Tazobactam 3 100 100 100 .375 gm In Sodium Chloride 0.9% 100 ml @ 25 mls/hr IVPB Q12HR ANA Rx #:[id number] Intake, IV Titration 952.157 586.620 286.565 Amount Amiodarone 300 mg In 241.25 Dextrose 5% in Water 250 ml @ 0.5 MG/MIN 25 mls/hr IV .Q10H ANA Rx#: [id number] Diltiazem 125 mg In 248.75 110.75 104.75 Sodium Chloride 0.9% 100 ml @ 15 MG/HR 15 mls/hr IV .Q8H20M ANA Rx#: [id number] Insulin Regular 100 unit 140.828 165.017 90.480 In Sodium Chloride 0.9% 100 ml @ Per Protocol IV .Q0M ANA Rx#:[id number] Norepinephrine 32 mg In 21.329 33.684 Sodium Chloride 0.9% 218 ml @ 0.06 MCG/KG/MIN 2. 776 mls/hr IV .Q24H ANA Rx#:[id number] propofoL 1,000 mg In 300 277.169 91.335 Empty Bag 1 bag @ Titrate IV .Q0M ANA Rx#: [id number] Tube Feeding 611 348 87 Other 90 30 Output: Urine 1820 1250 655 Other: Voiding Method Indwelling Catheter Indwelling Catheter ABP, PAP, CO, CI - Last Documented Arterial Blood Pressure 129/65 - Labs CBC & Chem 7: 09/02/20 03:55 09/02/20 03:55 Labs: Abnormal Lab Results - Last 24 Hours (Table) 09/01/20 09/01/20 09/01/20 Range/Units 10:03 11:12 12:16 WBC (3.8-10.6) k/uL RBC (4.30-5.90) m/uL Hgb (13.0-17.5) gm/dL Hct (39.0-53.0) % RDW (11.5-15.5) % Plt Count (150-450) k/uL Blast Cells % % Monocytes # (Manual) (0-1.0) k/uL Metamyelocytes # (Man) (0) k/uL Myelocytes # (Manual) (0) k/uL Blast Cells # (Man) (0) k/uL Nucleated RBCs (0-0) /100 WBC INR (<1.2) APTT (22.0-30.0) sec ABG pH (7.35-7.45) ABG pCO2 (35-45) mmHg ABG pO2 (83-108) mmHg ABG Total CO2 (19-24) mmol/L ABG O2 Saturation (94-97) % Chloride (98-107) mmol/L BUN (9-20) mg/dL Glucose (74-99) mg/dL POC Glucose (mg/dL) 203 H 181 H 181 H (75-99) mg/dL Uric Acid (3.5-8.5) mg/dL Calcium (8.4-10.2) mg/dL Magnesium (1.6-2.3) mg/dL AST (17-59) U/L Lactate Dehydrogenase (313-618) U/L Total Protein (6.3-8.2) g/dL Albumin (3.5-5.0) g/dL 09/01/20 09/01/20 09/01/20 Range/Units 13:19 14:06 15:07 WBC (3.8-10.6) k/uL RBC (4.30-5.90) m/uL Hgb (13.0-17.5) gm/dL Hct (39.0-53.0) % RDW (11.5-15.5) % Plt Count (150-450) k/uL Blast Cells % % Monocytes # (Manual) (0-1.0) k/uL Metamyelocytes # (Man) (0) k/uL Myelocytes # (Manual) (0) k/uL Blast Cells # (Man) (0) k/uL Nucleated RBCs (0-0) /100 WBC INR (<1.2) APTT (22.0-30.0) sec ABG pH (7.35-7.45) ABG pCO2 (35-45) mmHg ABG pO2 (83-108) mmHg ABG Total CO2 (19-24) mmol/L ABG O2 Saturation (94-97) % Chloride (98-107) mmol/L BUN (9-20) mg/dL Glucose (74-99) mg/dL POC Glucose (mg/dL) 181 H 181 H 171 H (75-99) mg/dL Uric Acid (3.5-8.5) mg/dL Calcium (8.4-10.2) mg/dL Magnesium (1.6-2.3) mg/dL AST (17-59) U/L Lactate Dehydrogenase (313-618) U/L Total Protein (6.3-8.2) g/dL Albumin (3.5-5.0) g/dL 09/01/20 09/01/20 09/01/20 Range/Units 17:06 18:49 19:58 WBC (3.8-10.6) k/uL RBC (4.30-5.90) m/uL Hgb (13.0-17.5) gm/dL Hct (39.0-53.0) % RDW (11.5-15.5) % Plt Count (150-450) k/uL Blast Cells % % Monocytes # (Manual) (0-1.0) k/uL Metamyelocytes # (Man) (0) k/uL Myelocytes # (Manual) (0) k/uL Blast Cells # (Man) (0) k/uL Nucleated RBCs (0-0) /100 WBC INR (<1.2) APTT (22.0-30.0) sec ABG pH (7.35-7.45) ABG pCO2 (35-45) mmHg ABG pO2 (83-108) mmHg ABG Total CO2 (19-24) mmol/L ABG O2 Saturation (94-97) % Chloride (98-107) mmol/L BUN (9-20) mg/dL Glucose (74-99) mg/dL POC Glucose (mg/dL) 179 H 184 H 180 H (75-99) mg/dL Uric Acid (3.5-8.5) mg/dL Calcium (8.4-10.2) mg/dL Magnesium (1.6-2.3) mg/dL AST (17-59) U/L Lactate Dehydrogenase (313-618) U/L Total Protein (6.3-8.2) g/dL Albumin (3.5-5.0) g/dL 09/01/20 09/01/20 09/01/20 Range/Units 21:07 22:01 23:00 WBC (3.8-10.6) k/uL RBC (4.30-5.90) m/uL Hgb (13.0-17.5) gm/dL Hct (39.0-53.0) % RDW (11.5-15.5) % Plt Count (150-450) k/uL Blast Cells % % Monocytes # (Manual) (0-1.0) k/uL Metamyelocytes # (Man) (0) k/uL Myelocytes # (Manual) (0) k/uL Blast Cells # (Man) (0) k/uL Nucleated RBCs (0-0) /100 WBC INR (<1.2) APTT (22.0-30.0) sec ABG pH (7.35-7.45) ABG pCO2 (35-45) mmHg ABG pO2 (83-108) mmHg ABG Total CO2 (19-24) mmol/L ABG O2 Saturation (94-97) % Chloride (98-107) mmol/L BUN (9-20) mg/dL Glucose (74-99) mg/dL POC Glucose (mg/dL) 169 H 165 H 167 H (75-99) mg/dL Uric Acid (3.5-8.5) mg/dL Calcium (8.4-10.2) mg/dL Magnesium (1.6-2.3) mg/dL AST (17-59) U/L Lactate Dehydrogenase (313-618) U/L Total Protein (6.3-8.2) g/dL Albumin (3.5-5.0) g/dL 09/02/20 09/02/20 09/02/20 Range/Units 00:20 01:22 02:02 WBC (3.8-10.6) k/uL RBC (4.30-5.90) m/uL Hgb (13.0-17.5) gm/dL Hct (39.0-53.0) % RDW (11.5-15.5) % Plt Count (150-450) k/uL Blast Cells % % Monocytes # (Manual) (0-1.0) k/uL Metamyelocytes # (Man) (0) k/uL Myelocytes # (Manual) (0) k/uL Blast Cells # (Man) (0) k/uL Nucleated RBCs (0-0) /100 WBC INR (<1.2) APTT (22.0-30.0) sec ABG pH (7.35-7.45) ABG pCO2 (35-45) mmHg ABG pO2 (83-108) mmHg ABG Total CO2 (19-24) mmol/L ABG O2 Saturation (94-97) % Chloride (98-107) mmol/L BUN (9-20) mg/dL Glucose (74-99) mg/dL POC Glucose (mg/dL) 146 H 143 H 136 H (75-99) mg/dL Uric Acid (3.5-8.5) mg/dL Calcium (8.4-10.2) mg/dL Magnesium (1.6-2.3) mg/dL AST (17-59) U/L Lactate Dehydrogenase (313-618) U/L Total Protein (6.3-8.2) g/dL Albumin (3.5-5.0) g/dL 09/02/20 09/02/20 09/02/20 Range/Units 03:04 03:33 03:55 WBC (3.8-10.6) k/uL RBC (4.30-5.90) m/uL Hgb (13.0-17.5) gm/dL Hct (39.0-53.0) % RDW (11.5-15.5) % Plt Count (150-450) k/uL Blast Cells % % Monocytes # (Manual) (0-1.0) k/uL Metamyelocytes # (Man) (0) k/uL Myelocytes # (Manual) (0) k/uL Blast Cells # (Man) (0) k/uL Nucleated RBCs (0-0) /100 WBC INR 1.2 H (<1.2) APTT 20.9 L (22.0-30.0) sec ABG pH (7.35-7.45) ABG pCO2 (35-45) mmHg ABG pO2 (83-108) mmHg ABG Total CO2 (19-24) mmol/L ABG O2 Saturation (94-97) % Chloride (98-107) mmol/L BUN (9-20) mg/dL Glucose (74-99) mg/dL POC Glucose (mg/dL) 203 H 199 H (75-99) mg/dL Uric Acid (3.5-8.5) mg/dL Calcium (8.4-10.2) mg/dL Magnesium (1.6-2.3) mg/dL AST (17-59) U/L Lactate Dehydrogenase (313-618) U/L Total Protein (6.3-8.2) g/dL Albumin (3.5-5.0) g/dL 09/02/20 09/02/20 09/02/20 Range/Units 03:55 03:55 03:58 WBC 26.4 H (3.8-10.6) k/uL RBC 2.19 L (4.30-5.90) m/uL Hgb 7.5 L (13.0-17.5) gm/dL Hct 21.2 L (39.0-53.0) % RDW 18.2 H (11.5-15.5) % Plt Count 91 L (150-450) k/uL Blast Cells % 54 H* % Monocytes # (Manual) 1.85 H (0-1.0) k/uL Metamyelocytes # (Man) 0.79 H (0) k/uL Myelocytes # (Manual) 2.90 H (0) k/uL Blast Cells # (Man) 14.26 H (0) k/uL Nucleated RBCs 3 H (0-0) /100 WBC INR (<1.2) APTT (22.0-30.0) sec ABG pH (7.35-7.45) ABG pCO2 (35-45) mmHg ABG pO2 (83-108) mmHg ABG Total CO2 (19-24) mmol/L ABG O2 Saturation (94-97) % Chloride 110 H (98-107) mmol/L BUN 53 H (9-20) mg/dL Glucose 186 H (74-99) mg/dL POC Glucose (mg/dL) 204 H (75-99) mg/dL Uric Acid 1.8 L (3.5-8.5) mg/dL Calcium 7.7 L (8.4-10.2) mg/dL Magnesium 3.3 H (1.6-2.3) mg/dL AST 104 H (17-59) U/L Lactate Dehydrogenase 27821 H (313-618) U/L Total Protein 5.8 L (6.3-8.2) g/dL Albumin 3.1 L (3.5-5.0) g/dL 10/07/20 10/07/20 10/07/20 Range/Units 05:06 05:18 06:03 WBC (3.8-10.6) k/uL RBC (4.30-5.90) m/uL Hgb (13.0-17.5) gm/dL Hct (39.0-53.0) % RDW (11.5-15.5) % Plt Count (150-450) k/uL Blast Cells % % Monocytes # (Manual) (0-1.0) k/uL Metamyelocytes # (Man) (0) k/uL Myelocytes # (Manual) (0) k/uL Blast Cells # (Man) (0) k/uL Nucleated RBCs (0-0) /100 WBC INR (<1.2) APTT (22.0-30.0) sec ABG pH 7.47 H (7.35-7.45) ABG pCO2 34 L (35-45) mmHg ABG pO2 110 H (83-108) mmHg ABG Total CO2 26 H (19-24) mmol/L ABG O2 Saturation 98.7 H (94-97) % Chloride (98-107) mmol/L BUN (9-20) mg/dL Glucose (74-99) mg/dL POC Glucose (mg/dL) 190 H 186 H (75-99) mg/dL Uric Acid (3.5-8.5) mg/dL Calcium (8.4-10.2) mg/dL Magnesium (1.6-2.3) mg/dL AST (17-59) U/L Lactate Dehydrogenase (313-618) U/L Total Protein (6.3-8.2) g/dL Albumin (3.5-5.0) g/dL 09/02/20 09/02/20 09/02/20 Range/Units 07:08 07:50 09:07 WBC (3.8-10.6) k/uL RBC (4.30-5.90) m/uL Hgb (13.0-17.5) gm/dL Hct (39.0-53.0) % RDW (11.5-15.5) % Plt Count (150-450) k/uL Blast Cells % % Monocytes # (Manual) (0-1.0) k/uL Metamyelocytes # (Man) (0) k/uL Myelocytes # (Manual) (0) k/uL Blast Cells # (Man) (0) k/uL Nucleated RBCs (0-0) /100 WBC INR (<1.2) APTT (22.0-30.0) sec ABG pH (7.35-7.45) ABG pCO2 (35-45) mmHg ABG pO2 (83-108) mmHg ABG Total CO2 (19-24) mmol/L ABG O2 Saturation (94-97) % Chloride (98-107) mmol/L BUN (9-20) mg/dL Glucose (74-99) mg/dL POC Glucose (mg/dL) 169 H 147 H 161 H (75-99) mg/dL Uric Acid (3.5-8.5) mg/dL Calcium (8.4-10.2) mg/dL Magnesium (1.6-2.3) mg/dL AST (17-59) U/L Lactate Dehydrogenase (313-618) U/L Total Protein (6.3-8.2) g/dL Albumin (3.5-5.0) g/dL Microbiology - Last 24 Hours (Table) 08/31/20 10:30 Bronchial Washings Culture - Preliminary Bronchial Washings - Random 08/30/20 21:10 Gram Stain - Final Sputum Sputum Culture - Final
[2020-09-02 10:12] LABS: Glucose,Whole Blood 139 mg/dL (75-99)
[2020-09-02 11:12] LABS: Glucose,Whole Blood 130 mg/dL (75-99)
[2020-09-02 12:17] LABS: Glucose,Whole Blood 200 mg/dL (75-99)
--- NOTE | 2020-09-02 13:05 | P.PN ---
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 The patient got transferred to the intensive care unit yesterday because of an acute hypoxic respiratory failu re/acute lung injury with development of bilateral pulmonary infiltrates. Note that the patient was originally hospitalized on 08/24/2024 shortness of breath and difficulty breathing. The patient is known to have chronic atrial fibrillation along with hypertension and hyperlipidemia. He was also being seen by cardiology regarding atrial fibrillation. As the patient developed breath and pulmonary infiltrates and acute hypoxic respiratory failure, the patient a chest to the intensive care unit and he was placed on a BiPAP at a pressure of 14/5 cm of water. FiO2 was as high as 90% and it was being titrated. The patient also had been placed on broad-spectrum antibiotics including IV Zosyn. He was being diuresis with IV Lasix 40 mg every 12 hours. He was on a Cardizem drip at 15 mg an hour to control atrial fibrillation. Remains on Decadron 5 mg IV every 6 hours. The chest x-ray as mentioned shows interval development of bilateral perihilar pulmonary infiltrates which are currently diffuse. The patient demonstrated gradual improvement in the white cell count from a baseline of 0.7 up to 20 and the platelet count is up to 79 with a hemoglobin of 8.0. The patient did not receive any packed RBC transfusions. The differential count shows 46% blasts. Renal function is impaired in the creatinine is 1.47 as the patient is being diuresed. Uric acid level is up to 8.9 with a calcium level of 8.3 and phosphorus level of 5.8 and LDH level was as high as 5244 indicating the possibility of a tumor lysis syndrome. Based on that, the patient was given a dose of respirator he carries yesterday and urine acid level is improved considerably. The echo from last month showed a preserved LV function with an ejection fraction of 6065%. The patient has mild MR, RV is mildly enlarged. Note that the patient over progressively more short of breath and hypoxic. At point, the patient was intubated and placed on a mechanical ventilator. I saw this patient this morning. The patient was already intubated on a mechanical ventilator on assist control mode with a rate of 24 with a tidal volume of 450 and FiO2 of 50% with a PEEP of 10. The blood gas showed a pH of 7.42 with a pC O2 of 40 and pO2 of 104. This was on FiO2 of 60%. The patient was sedated with propofol running at 75 mg per KG per minute. The patient is also on insulin at 5 units an hour for blood sugar control. The patient is on norepinephrine infusion at 0.06 units per KG per minute. Cardizem drip is running at 50 mg an hour in regards to her atrial fibrillation. The heart rate is in the order of 110-120. He is afebrile. Chest x-rays showing bilateral pulmonary infiltrates, stable compared to yesterday. immediately a bronchoscopy was done and the bronchioloalveolar lavage of the right middle lobe was collected as there was a concern of an underlying infection. The patient is currently on IV Zosyn. Lasix was discontinued. On 09/01/2020, the patient is being seen in follow-up in the intensive care unit. The patient remains intubated on a mechanical ventilator. This morning the patient is sedated with propofol at the rate of 45 g per KG per minute. The patient remains on mechanical ventilator on assist control mode at the rate of 24 with a tidal volume of 450 and FiO2 of 40% with a PEEP of 10. Blood gases from today showed a pH of 7.44 with a pCO2 of 38 and pO2 of 152. Chest x-ray still showing diffuse bilateral pulmonary infiltrates slightly improved compared to yesterday. Oxidation is also improved. Based on that, I made recommendations to gradually wean off the PEEP down to 5 cm of water. The patient unfortunately continues to be in atrial fibrillation. The patient is not adequately controlled. The patient is on a Cardizem drip at 15 mg an hour. The patient is also on amiodarone 0.5 mg an hour and the patient is also on metoprolol 100 mg by mouth 3 times a day. The patient is being supported with norepinephrine infusion for blood pressure support at the rate of 0.06 mg per KG per minute. The patient is afebrile. The patient is currently on IV Zosyn. The patient's bronchoscopy and the bronchioloalveolar lavage was done yesterday and the patient does not have any possible microbial growth for now. No fever. No chills. He is receiving daily Lasix 40 mg IV push to maintain adequate fluid balance. In terms of hematologic profile, the white cell count is up to 28 and the patient has 12% blast cells. The platelet count is at 96 with a hemoglobin of 7.3. The patient is currently on Hydrea the patient is also on Decadron. Discussed the case with oncology. We will hold off the ATRA treatment as the patient has gone into differentiation syndrome. On 09/02/2020, I'm seeing the patient for a follow-up in the intensive care unit. The patient remains intubated on a mechanical ventilator. This morning the patient remains on propofol at 50 g per KG per minute. The patient is also on a mechanical ventilator at the rate of 24 with a tidal volume of 450 and FiO2 of 40% with a PEEP of 5. Chest x-ray is showing stable bilateral pulmonary infiltrates without any major change compared to yesterday. Meanwhile the blood gases from today showed a pH of 7.47 with a pCO2 of 34 and pO2 of 110. The patient remains in atrial fibrillation on obviously it has been very difficult to control the rate. He is not a candidate for cardioversion and the patient cannot take any anticoagulants. 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 In terms of his A. fib, the patient remains on a combination of Cardizem drip, amiodarone drip in addition to beta blockers high pressure cleaner. Digoxin was also added by cardiology. Heart rate is ranging between 110 and 130, irregular. He is afebrile. He is covered with Zosyn. The bronchoscopy and bronchial alveolar lavage done earlier yielded no microbial growth. The patient remains on Decadron. The patient remains on Hydrea. LDH is on the rise. White cell count today is at 26.4. Platelet count is at 91. The patient is 54% blasts and off and sleepy is a sign of progression of his underlying AML. The BUN is at 53 with a creatinine of 1.05. The patient was given daily Lasix and the patient's fluid balance has been +7 40 mL over the past 24 hours. The patient is on enteral feeding for nutritional support. The patient is well sedated. A sedation holiday was given today. He was taken off the propofol and subsequently became more tachycardic and restless and asynchronous with a mechanical ventilator and the procedure had to be aborted and the patient was placed back on sedation. Objective - Vital Signs Vital signs: Vital Signs Temp 98.9 F 09/02/20 12:00 Pulse 131 H 09/02/20 12:00 Resp 22 09/02/20 12:00 BP 112/77 09/02/20 10:00 Pulse Ox 97 09/02/20 12:00 Intake & Output 09/01/20 09/02/20 09/02/20 18:59 06:59 18:59 Intake Total 2065.157 1346.620 768.998 Output Total 1820 1250 1380 Balance 245.157 96.620 -611.002 Weight 101.6 kg Intake: IV 412 412 256 0.9 240 240 120 Normal Saline Pressure 72 72 36 Bag Piperacillin-Tazobactam 3 100 100 100 .375 gm In Sodium Chloride 0.9% 100 ml @ 25 mls/hr IVPB Q12HR ANA Rx #:[id number] Intake, IV Titration 952.157 586.620 307.998 Amount Amiodarone 300 mg In 241.25 Dextrose 5% in Water 250 ml @ 0.5 MG/MIN 25 mls/hr IV .Q10H ANA Rx#: [id number] Diltiazem 125 mg In 248.75 110.75 104.75 Sodium Chloride 0.9% 100 ml @ 15 MG/HR 15 mls/hr IV .Q8H20M ANA Rx#: [id number] Insulin Regular 100 unit 140.828 165.017 104.939 In Sodium Chloride 0.9% 100 ml @ Per Protocol IV .Q0M ANA Rx#:[id number] Norepinephrine 32 mg In 21.329 33.684 6.568 Sodium Chloride 0.9% 218 ml @ 0.06 MCG/KG/MIN 2. 776 mls/hr IV .Q24H ANA Rx#:[id number] propofoL 1,000 mg In 300 277.169 91.741 Empty Bag 1 bag @ Titrate IV .Q0M ANA Rx#: [id number] Tube Feeding 611 348 145 Other 90 60 Output: Urine 1820 1250 1380 Other: Voiding Method Indwelling Catheter Indwelling Catheter Indwelling Catheter ABP, PAP, CO, CI - Last Documented Arterial Blood Pressure 106/54 - Exam Gen. appearance the patient is currently sedated, comfortable intubated on a mechanical ventilator. The patient is sedated with propofol. Orogastric and orotracheal tube are both in place. Head exam was generally normal. There was no scleral icterus or corneal arcus. Mucous membranes were moist. Neck was supple and without jugular venous distension, thyromegaly, or carotid bruits. Carotids were easily palpable bilaterally. There was no adenopathy.the patient is a left IJ triple-lumen catheter in place. Cardiac exam revealed the PMI to be normally situated and sized. The rhythm was irregular consistent with atrial fibrillation with rapid ventricular response and no extrasystoles were noted during several minutes of auscultation. The first and second heart sounds were normal and physiologic splitting of the second heart sound was noted. There were no murmurs, rubs, clicks, or gallops. Lungs were clear to auscultation and percussion, and with normal diaphragmatic excursion. No wheezes or rales were noted. Abdominal exam revealed normal bowel sounds. The abdomen was soft, non-tender, and without masses, organomegaly, or appreciable enlargement of the abdominal aorta. Examination of the extremities revealed easily palpable radial, femoral and pedal pulses. There was no cyanosis, clubbing or edema. Examination of the skin revealed no evidence of significant rashes, suspicious appearing nevi or other concerning lesions. Neurologically the patient is sedated and the patient is calm and comfortable at this point in time. - Labs CBC & Chem 7: 09/02/20 03:55 09/02/20 03:55 Labs: Abnormal Lab Results - Last 24 Hours (Table) 09/01/20 09/01/20 09/01/20 Range/Units 13:19 14:06 15:07 WBC (3.8-10.6) k/uL RBC (4.30-5.90) m/uL Hgb (13.0-17.5) gm/dL Hct (39.0-53.0) % RDW (11.5-15.5) % Plt Count (150-450) k/uL Blast Cells % % Monocytes # (Manual) (0-1.0) k/uL Metamyelocytes # (Man) (0) k/uL Myelocytes # (Manual) (0) k/uL Blast Cells # (Man) (0) k/uL Nucleated RBCs (0-0) /100 WBC INR (<1.2) APTT (22.0-30.0) sec ABG pH (7.35-7.45) ABG pCO2 (35-45) mmHg ABG pO2 (83-108) mmHg ABG Total CO2 (19-24) mmol/L ABG O2 Saturation (94-97) % Chloride (98-107) mmol/L BUN (9-20) mg/dL Glucose (74-99) mg/dL POC Glucose (mg/dL) 181 H 181 H 171 H (75-99) mg/dL Uric Acid (3.5-8.5) mg/dL Calcium (8.4-10.2) mg/dL Magnesium (1.6-2.3) mg/dL AST (17-59) U/L Lactate Dehydrogenase (313-618) U/L Total Protein (6.3-8.2) g/dL Albumin (3.5-5.0) g/dL 09/01/20 09/01/20 09/01/20 Range/Units 17:06 18:49 19:58 WBC (3.8-10.6) k/uL RBC (4.30-5.90) m/uL Hgb (13.0-17.5) gm/dL Hct (39.0-53.0) % RDW (11.5-15.5) % Plt Count (150-450) k/uL Blast Cells % % Monocytes # (Manual) (0-1.0) k/uL Metamyelocytes # (Man) (0) k/uL Myelocytes # (Manual) (0) k/uL Blast Cells # (Man) (0) k/uL Nucleated RBCs (0-0) /100 WBC INR (<1.2) APTT (22.0-30.0) sec ABG pH (7.35-7.45) ABG pCO2 (35-45) mmHg ABG pO2 (83-108) mmHg ABG Total CO2 (19-24) mmol/L ABG O2 Saturation (94-97) % Chloride (98-107) mmol/L BUN (9-20) mg/dL Glucose (74-99) mg/dL POC Glucose (mg/dL) 179 H 184 H 180 H (75-99) mg/dL Uric Acid (3.5-8.5) mg/dL Calcium (8.4-10.2) mg/dL Magnesium (1.6-2.3) mg/dL AST (17-59) U/L Lactate Dehydrogenase (313-618) U/L Total Protein (6.3-8.2) g/dL Albumin (3.5-5.0) g/dL 09/01/20 09/01/20 09/01/20 Range/Units 21:07 22:01 23:00 WBC (3.8-10.6) k/uL RBC (4.30-5.90) m/uL Hgb (13.0-17.5) gm/dL Hct (39.0-53.0) % RDW (11.5-15.5) % Plt Count (150-450) k/uL Blast Cells % % Monocytes # (Manual) (0-1.0) k/uL Metamyelocytes # (Man) (0) k/uL Myelocytes # (Manual) (0) k/uL Blast Cells # (Man) (0) k/uL Nucleated RBCs (0-0) /100 WBC INR (<1.2) APTT (22.0-30.0) sec ABG pH (7.35-7.45) ABG pCO2 (35-45) mmHg ABG pO2 (83-108) mmHg ABG Total CO2 (19-24) mmol/L ABG O2 Saturation (94-97) % Chloride (98-107) mmol/L BUN (9-20) mg/dL Glucose (74-99) mg/dL POC Glucose (mg/dL) 169 H 165 H 167 H (75-99) mg/dL Uric Acid (3.5-8.5) mg/dL Calcium (8.4-10.2) mg/dL Magnesium (1.6-2.3) mg/dL AST (17-59) U/L Lactate Dehydrogenase (313-618) U/L Total Protein (6.3-8.2) g/dL Albumin (3.5-5.0) g/dL 09/02/20 09/02/20 09/02/20 Range/Units 00:20 01:22 02:02 WBC (3.8-10.6) k/uL RBC (4.30-5.90) m/uL Hgb (13.0-17.5) gm/dL Hct (39.0-53.0) % RDW (11.5-15.5) % Plt Count (150-450) k/uL Blast Cells % % Monocytes # (Manual) (0-1.0) k/uL Metamyelocytes # (Man) (0) k/uL Myelocytes # (Manual) (0) k/uL Blast Cells # (Man) (0) k/uL Nucleated RBCs (0-0) /100 WBC INR (<1.2) APTT (22.0-30.0) sec ABG pH (7.35-7.45) ABG pCO2 (35-45) mmHg ABG pO2 (83-108) mmHg ABG Total CO2 (19-24) mmol/L ABG O2 Saturation (94-97) % Chloride (98-107) mmol/L BUN (9-20) mg/dL Glucose (74-99) mg/dL POC Glucose (mg/dL) 146 H 143 H 136 H (75-99) mg/dL Uric Acid (3.5-8.5) mg/dL Calcium (8.4-10.2) mg/dL Magnesium (1.6-2.3) mg/dL AST (17-59) U/L Lactate Dehydrogenase (313-618) U/L Total Protein (6.3-8.2) g/dL Albumin (3.5-5.0) g/dL 09/02/20 09/02/20 09/02/20 Range/Units 03:04 03:33 03:55 WBC (3.8-10.6) k/uL RBC (4.30-5.90) m/uL Hgb (13.0-17.5) gm/dL Hct (39.0-53.0) % RDW (11.5-15.5) % Plt Count (150-450) k/uL Blast Cells % % Monocytes # (Manual) (0-1.0) k/uL Metamyelocytes # (Man) (0) k/uL Myelocytes # (Manual) (0) k/uL Blast Cells # (Man) (0) k/uL Nucleated RBCs (0-0) /100 WBC INR 1.2 H (<1.2) APTT 20.9 L (22.0-30.0) sec ABG pH (7.35-7.45) ABG pCO2 (35-45) mmHg ABG pO2 (83-108) mmHg ABG Total CO2 (19-24) mmol/L ABG O2 Saturation (94-97) % Chloride (98-107) mmol/L BUN (9-20) mg/dL Glucose (74-99) mg/dL POC Glucose (mg/dL) 203 H 199 H (75-99) mg/dL Uric Acid (3.5-8.5) mg/dL Calcium (8.4-10.2) mg/dL Magnesium (1.6-2.3) mg/dL AST (17-59) U/L Lactate Dehydrogenase (313-618) U/L Total Protein (6.3-8.2) g/dL Albumin (3.5-5.0) g/dL 09/02/20 09/02/20 09/02/20 Range/Units 03:55 03:55 03:58 WBC 26.4 H (3.8-10.6) k/uL RBC 2.19 L (4.30-5.90) m/uL Hgb 7.5 L (13.0-17.5) gm/dL Hct 21.2 L (39.0-53.0) % RDW 18.2 H (11.5-15.5) % Plt Count 91 L (150-450) k/uL Blast Cells % 54 H* % Monocytes # (Manual) 1.85 H (0-1.0) k/uL Metamyelocytes # (Man) 0.79 H (0) k/uL Myelocytes # (Manual) 2.90 H (0) k/uL Blast Cells # (Man) 14.26 H (0) k/uL Nucleated RBCs 3 H (0-0) /100 WBC INR (<1.2) APTT (22.0-30.0) sec ABG pH (7.35-7.45) ABG pCO2 (35-45) mmHg ABG pO2 (83-108) mmHg ABG Total CO2 (19-24) mmol/L ABG O2 Saturation (94-97) % Chloride 110 H (98-107) mmol/L BUN 53 H (9-20) mg/dL Glucose 186 H (74-99) mg/dL POC Glucose (mg/dL) 204 H (75-99) mg/dL Uric Acid 1.8 L (3.5-8.5) mg/dL Calcium 7.7 L (8.4-10.2) mg/dL Magnesium 3.3 H (1.6-2.3) mg/dL AST 104 H (17-59) U/L Lactate Dehydrogenase 56433 H (313-618) U/L Total Protein 5.8 L (6.3-8.2) g/dL Albumin 3.1 L (3.5-5.0) g/dL 09/02/20 09/02/20 09/02/20 Range/Units 05:06 05:18 06:03 WBC (3.8-10.6) k/uL RBC (4.30-5.90) m/uL Hgb (13.0-17.5) gm/dL Hct (39.0-53.0) % RDW (11.5-15.5) % Plt Count (150-450) k/uL Blast Cells % % Monocytes # (Manual) (0-1.0) k/uL Metamyelocytes # (Man) (0) k/uL Myelocytes # (Manual) (0) k/uL Blast Cells # (Man) (0) k/uL Nucleated RBCs (0-0) /100 WBC INR (<1.2) APTT (22.0-30.0) sec ABG pH 7.47 H (7.35-7.45) ABG pCO2 34 L (35-45) mmHg ABG pO2 110 H (83-108) mmHg ABG Total CO2 26 H (19-24) mmol/L ABG O2 Saturation 98.7 H (94-97) % Chloride (98-107) mmol/L BUN (9-20) mg/dL Glucose (74-99) mg/dL POC Glucose (mg/dL) 190 H 186 H (75-99) mg/dL Uric Acid (3.5-8.5) mg/dL Calcium (8.4-10.2) mg/dL Magnesium (1.6-2.3) mg/dL AST (17-59) U/L Lactate Dehydrogenase (313-618) U/L Total Protein (6.3-8.2) g/dL Albumin (3.5-5.0) g/dL 09/02/20 09/02/20 09/02/20 Range/Units 07:08 07:50 09:07 WBC (3.8-10.6) k/uL RBC (4.30-5.90) m/uL Hgb (13.0-17.5) gm/dL Hct (39.0-53.0) % RDW (11.5-15.5) % Plt Count (150-450) k/uL Blast Cells % % Monocytes # (Manual) (0-1.0) k/uL Metamyelocytes # (Man) (0) k/uL Myelocytes # (Manual) (0) k/uL Blast Cells # (Man) (0) k/uL Nucleated RBCs (0-0) /100 WBC INR (<1.2) APTT (22.0-30.0) sec ABG pH (7.35-7.45) ABG pCO2 (35-45) mmHg ABG pO2 (83-108) mmHg ABG Total CO2 (19-24) mmol/L ABG O2 Saturation (94-97) % Chloride (98-107) mmol/L BUN (9-20) mg/dL Glucose (74-99) mg/dL POC Glucose (mg/dL) 169 H 147 H 161 H (75-99) mg/dL Uric Acid (3.5-8.5) mg/dL Calcium (8.4-10.2) mg/dL Magnesium (1.6-2.3) mg/dL AST (17-59) U/L Lactate Dehydrogenase (313-618) U/L Total Protein (6.3-8.2) g/dL Albumin (3.5-5.0) g/dL 09/02/20 09/02/20 09/02/20 Range/Units 10:11 11:11 12:15 WBC (3.8-10.6) k/uL RBC (4.30-5.90) m/uL Hgb (13.0-17.5) gm/dL Hct (39.0-53.0) % RDW (11.5-15.5) % Plt Count (150-450) k/uL Blast Cells % % Monocytes # (Manual) (0-1.0) k/uL Metamyelocytes # (Man) (0) k/uL Myelocytes # (Manual) (0) k/uL Blast Cells # (Man) (0) k/uL Nucleated RBCs (0-0) /100 WBC INR (<1.2) APTT (22.0-30.0) sec ABG pH (7.35-7.45) ABG pCO2 (35-45) mmHg ABG pO2 (83-108) mmHg ABG Total CO2 (19-24) mmol/L ABG O2 Saturation (94-97) % Chloride (98-107) mmol/L BUN (9-20) mg/dL Glucose (74-99) mg/dL POC Glucose (mg/dL) 139 H 130 H 200 H (75-99) mg/dL Uric Acid (3.5-8.5) mg/dL Calcium (8.4-10.2) mg/dL Magnesium (1.6-2.3) mg/dL AST (17-59) U/L Lactate Dehydrogenase (313-618) U/L Total Protein (6.3-8.2) g/dL Albumin (3.5-5.0) g/dL Microbiology - Last 24 Hours (Table) 08/31/20 10:30 Bronchial Washings Culture - Preliminary Bronchial Washings - Random 08/30/20 21:10 Gram Stain - Final Sputum Sputum Culture - Final Assessment and Plan Plan: 1 acute hypoxic respiratory failure, with development of diffuse bilateral pulmonary infiltrates, possibly related to pneumonia/CHF versus noncardiogenic pulmonary edema including acute lung injury from various insult related to acute promyelocytic leukemia treatment. The patient got intubated on 08/30/2020 and the patient is currently on a mechanical ventilator. Chest x-ray still showing diffuse but the pulmonary infiltrates. Bronchoscopy was done today and the bronchioloalveolar lavage of the right middle lobe was collected. The cultures are negative and the presentation with diffuse bilateral pulmonary infiltrates most consistent with proliferation syndrome in the setting of a acute promyelocytic leukemia treatment. The patient is currently off a ATRA and he is being considered for arsenic treatment again. Sedation holiday was given as the patient's oxidation is improved. He failed to demonstrate adequate weaning parameters. He was placed back on sedation. Not ready for weaning at this point in time. 2 chronic atrial fibrillation currently on a Cardizem drip for rate control, the patient is also requiring low-dose norepinephrine infusion for blood pressure control. the patient remains also on amiodarone drip at 0.5 mg per minute and the patient is also on oral metoprolol. the atrial fibrillation is still quite tachycardic and the patient was given digoxin 125 g on a daily basis. The patient is not a candidate for cardioversion and the patient cannot tolerate anticoagulation. 3 leukopenia from which the patient recovered. 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 13 obstructive sleep apnea, history of Plan Continue ventilator support , failed to demonstrate adequate weaning parameters and failed to recover adequately from sedation while being given a sedation holiday Keep the patient sedated with propofol Continue Cardizem for rate control which is running at 15 mg an hour, and switched amiodarone to oral and continue the beta blockers, and digoxin was added for rate control Norepinephrine infusion for blood pressure support to maintain a mean artery pressure above 60 Continued IV Zosyn, and the bronchioloalveolar lavage has not shown any significant microbial growth Continue Decadron Continue Hydrea Prognosis poor baseline above-mentioned comorbidities. Discussed the case with oncology and the patient may be considered for DAVIDSON treatment Monitor electrolytes critical condition will continue to follow make further recommendations based on the progress. This evaluation was done and morning 30 minutes. Time with Patient: Greater than 30
[2020-09-02 13:06] LABS: Glucose,Whole Blood 177 mg/dL (75-99)
[2020-09-02 15:00] LABS: Glucose,Whole Blood 129 mg/dL (75-99)
--- NOTE | 2020-09-02 15:59 | P.PN ---
Progress Note - Text Progress Note Date: 09/02/20 Presenting complaint: Tired Interval history: This is a patient who was recently diagnosed with promyelocytic leukemia. On chemotherapy. Went to CHF and atrial fibrillation with rapid ventricular rate. Transferred to telemetry floor. 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 started on IV dexamethasone. Put on a Cardizem drip. Requiring high flow oxygen. Given IV Lasix. On August [address] on BiPAP, transferred to ICU. Intubated Today-ICU-2 feeding started at 10 mL an hour. Did undergo bronchoscopy. On the ventilator. FiO2 15 of PEEP of 10. Drips include levo fed, propofol, insulin, Cardizem. Patient isn't A. fib with a variable heart rate. acute kidney injury-ATN. Today-intubated. FiO2 50/5. Uncontrolled-atrial flutter. Drips include depression, levo fed, Cardizem, insulin. 2 feeding at 29 mL an hour. Daughter the bedside. White count and blast cells have gone up Review of systems: Patient intubated Active Medications Hydrocodone Bitart/Acetaminophen (Hydrocodone/Apap 10-325mg 1 Each Tab) 1 each PO QID PRN PRN Reason: Pain Last Admin: 09/02/20 04:18 Dose: 1 each Documented by: Al Hydroxide/Mg Hydroxide (Mag Hydrox/Al Hydrox/Simeth 30 Ml Cup) 30 ml PO Q4HR PRN PRN Reason: GI Upset Last Admin: 08/29/20 02:27 Dose: 30 ml Documented by: Amiodarone HCl (Amiodarone 200 Mg Tab) 400 mg PO BID [facility] Last Admin: 09/02/20 08:12 Dose: 400 mg Documented by: Atorvastatin Calcium (Atorvastatin 10 Mg Tab) 10 mg PO HS [facility] Last Admin: 09/01/20 21:34 Dose: 10 mg Documented by: Chlorhexidine Gluconate (Chlorhexidine Gluconate 15 Ml Cup) 15 ml MUCOUS MEM BID [facility] Last Admin: 09/02/20 08:12 Dose: 15 ml Documented by: Dexamethasone Sodium Phosphate (Dexamethasone Sod Phosphate 4 Mg/Ml 1 Ml Vial) 5 mg IV Q6HR [facility] Last Admin: 09/02/20 12:57 Dose: 5 mg Documented by: Digoxin (Digoxin 125 Mcg Tab) 125 mcg PO DAILY [facility] Last Admin: 09/02/20 08:35 Dose: 125 mcg Documented by: Furosemide (Furosemide 10 Mg/Ml 4 Ml Vial) 40 mg IV DAILY [facility] Last Admin: 09/02/20 08:12 Dose: 40 mg Documented by: Gabapentin (Gabapentin 100 Mg Cap) 100 mg PO TID [facility] Last Admin: 09/02/20 08:13 Dose: 100 mg Documented by: Hydroxyurea (Hydroxyurea 500 Mg Cap) 500 mg PO BID [facility] Last Admin: 09/02/20 08:35 Dose: 500 mg Documented by: Diltiazem HCl 125 mg/ Sodium (Chloride) 125 mls @ 15 mls/hr IV .Q8H20M [facility] Last Admin: 09/02/20 08:22 Dose: 15 mg/hr, 15 mls/hr Documented by: Piperacillin Sod/Tazobactam (Sod 3.375 gm/ Sodium Chloride) 100 mls @ 25 mls/hr IVPB Q12HR [facility] Last Admin: 09/02/20 08:14 Dose: 25 mls/hr Documented by: Propofol 1,000 mg/ IV Solution 100 mls @ 0 mls/hr IV .Q0M [facility]; Protocol Last Admin: 09/02/20 15:20 Dose: 40 mcg/kg/min, 24.384 mls/hr Documented by: Insulin Human Regular 100 unit (/ Sodium Chloride) 101 mls @ 0 mls/hr IV .Q0M [facility]; Protocol Last Titration: 09/02/20 13:05 Dose: 18 units/hr, 18.18 mls/hr Documented by: Norepinephrine Bitartrate 32 (mg/ Sodium Chloride) 250 mls @ 2.776 mls/hr IV .Q24H [facility]; Protocol Last Titration: 09/02/20 13:04 Dose: 0.03 mcg/kg/min, 1.388 mls/hr Documented by: Insulin Human Regular (Insulin Regular Bolus (From Drip Bag)) 9.9 unit 0.1 unit/kg (9.9 unit) IV ONCE PRN PRN Reason: Blood Sugar - High Stop: 09/30/20 21:00 Magnesium Oxide (Magnesium Oxide 400 Mg Tab) 400 mg PO DAILY [facility] Last Admin: 09/02/20 08:35 Dose: Not Given Documented by: Metoprolol Tartrate (Metoprolol Tartrate 50 Mg Tab) 100 mg PO TID [facility] Last Admin: 09/02/20 08:13 Dose: 100 mg Documented by: Miscellaneous Information (Potassium Replacement Protocol 1 Each Misc) 1 each MISCELLANE DAILY PRN; Protocol PRN Reason: Per Protocol Miscellaneous Information (Magnesium Replacement Protocol 1 Each Misc) 1 each MISCELLANE DAILY PRN; Protocol PRN Reason: Per Protocol Pantoprazole Sodium (Pantoprazole 40 Mg/10 Ml Vial) 40 mg IVP BID [facility] Last Admin: 09/02/20 08:13 Dose: 40 mg Documented by: Potassium Chloride (Potassium Chloride Er 20 Meq Tab.Er) 20 meq PO BID [facility] Last Admin: 09/02/20 08:14 Dose: 20 meq Documented by: Tamsulosin HCl (Tamsulosin 0.4 Mg Cap.Er.24h) 0.4 mg PO BID [facility] Last Admin: 09/02/20 08:14 Dose: 0.4 mg Documented by: On examination: VITAL SIGNS: 98.9, 131, 22, 106/54, 97% on the ventilator GENERAL APPEARANCE: Laying in bed, intubated HEENT: Endotracheal tube EYES: Pupils equal. Conjunctiva normal. NECK: JVD unable to assess. Mass not palpable. RESPIRATORY: Respiratory effort increased. , decreased breath sounds. CARDIOVASCULAR: Heart sounds irregular some edema.. ABDOMEN: Soft. Liver and spleen not palpable. No tenderness. No mass palpable. PSYCHIATRY: Sedated INVESTIGATIONS, reviewed in the clinical context: White count 26.4 hemoglobin 7.5 platelets 91 blast cells 54% potassium 4.4 creatinine 1.05 LDH 53413, uric acid 1.8 Chest x-ray film personally reviewed by mn-September 03--bilateral infiltrates persist Previous testing White count 1.5 hemoglobin 8.3 platelets 52 blast cells 30% Potassium 3.8 creatinine 1.24 blood glucose 276 lactic acid 3.5 uric acid 1.3 Chest x-ray film personally reviewed by mn-pulmonary edema 2-D echocardiogram from last month showed EF 60-65% Assessment: -Persistent atrial flutter-fibrillation with a rapid ventricular rate, remains uncontrolled -Acute congestive heart failure exacerbation from diastolic dysfunction EF 60- 65%, precipitated by atrial flutter fibrillation with a rapid ventricular rate- improved -Acute hypoxic respiratory failure requiring ventilator support.-Slow to respond -Questionable pneumonia. Though infiltrates could be from leukocytes from the differential syndrome. - Differential syndrome with treatment of APL with arsenic worsening blast cells -Hypotensive shock-requiring pressor support-uncontrolled -Diabetes mellitus type 2, uncontrolled with hyperglycemia secondary to steroids -Essential hypertension -Hyperlipidemia -Primary osteoarthritis -Obstructive sleep apnea uses CPAP -Childhood polio -Obstructive sleep apnea uses CPAP -Primary osteoarthritis -Promyelocytic leukemia-started on induction treatment with arsenic trioxide and Atra -Acute kidney injury, some improvement Plan: Patient currently and IV Cardizem drip, hydroxyurea, insulin drip, Lopressor, levo fed drip, IV Zosyn, propofol, spoke to the daughter the bedside. Prognosis remains guarded. Await further input from oncology about chemotherapy.
[2020-09-02 16:19] LABS: Glucose,Whole Blood 128 mg/dL (75-99)
[2020-09-02] MEDS: NOREPINEPHRINE 32 MG in SODIUM CHLORIDE 0.9% 218 ML IV SCH (16:38)
[2020-09-02 17:57] LABS: Glucose,Whole Blood 152 mg/dL (75-99)
--- NOTE | 2020-09-02 19:00 | ECHOF ---
Referral Reason:assess aortic valve and pericardial effusion MEASUREMENTS -------- HEIGHT: 152.4 cm WEIGHT: 113.4 kg BP: IVSd: 1.3 cm (0.6 - 1.1) LVIDd: 4.9 cm (3.9 - 5.3) LVPWd: 1.5 cm (0.6 - 1.1) IVSs: 1.3 cm LVIDs: 3.8 cm LVPWs: 1.6 cm MV E Terry: 0.84 m/s MV DecT: 181 ms MV A Terry: 0.79 m/s MV E/A Ratio: 1.07 AV maxP.12 mmHg AV meanP.83 mmHg RAP: 5.00 mmHg RVSP: 44.38 mmHg FINDINGS -------- Atrial fibrillation. This was a techncally difficult study with suboptimal views, , Lumason utilized for enhancement of im ages. The left ventricular size is normal. There is mild concentric left ventricular hypertrophy. Overa ll left ventricular systolic function is moderate-severely impaired with, an EF between 30 - 35 %. Apical anterior LV wall motion is hypokinetic. Apical lateral LV wall motion is hypokinetic. Ap ical inferior LV wall motion is hypokinetic. Apical septum LV wall motion is hypokinetic. The right ventricle is normal in size. 5.0mg OF Lumason UTLIZED: 2 OR MORE WALL SEGMENTS NOT VISUALIZED. There is moderate aortic stenosis present. Peak/mean gradient across the Aortic Valve is 31.12mmHg / 18.83mmHg. [id number] mitral regurgitation is present. The peak and mean MV gradients are 19.19mmHg 5.2 7mmHg as measured by doppler. Vagi-[id number] mitral stenosis. Mild tricuspid regurgitation present. There is mild pulmonary hypertension. Trace/mild (physiologic) pulmonic regurgitation. The aortic root size is normal. There is no pericardial effusion. CONCLUSIONS -------- 1. This was a techncally difficult study with suboptimal views, , Lumason utilized for enhancement of images. 2. The left ventricular size is normal. 3. There is mild concentric left ventricular hypertrophy. 4. Overall left ventricular systolic function is moderate-severely impaired with, an EF between 30 - 35 %. 5. Apical lateral LV wall motion is hypokinetic. 6. Apical inferior LV wall motion is hypokinetic. 7. Apical septum LV wall motion is hypokinetic. 8. The right ventricle is normal in size. 9. 5.0mg OF Lumason UTLIZED: 2 OR MORE WALL SEGMENTS NOT VISUALIZED. 10. There is moderate aortic stenosis present. 11. Peak/mean gradient across the Aortic Valve is 31.12mmHg / 18.83mmHg. 12. Syvq-nt-auvfakna mitral regurgitation is present. 13. The peak and mean MV gradients are 19.19mmHg 5.27mmHg as measured by doppler. 14. Gcbt-gu-ksuewcon mitral stenosis. 15. Mild tricuspid regurgitation present. 16. There is mild pulmonary hypertension. 17. Trace/mild (physiologic) pulmonic regurgitation. 18. The aortic root size is normal. 19. There is no pericardial effusion. ACADEMIC AFFAIRS ASSISTANT: Lisa Newby RDCS
[2020-09-02 20:13] LABS: Glucose,Whole Blood 180 mg/dL (75-99)
[2020-09-02] MEDS: ATORVASTATIN 10 MG TAB PO SCH (20:43)
[2020-09-02 21:05] LABS: Glucose,Whole Blood 154 mg/dL (75-99)
[2020-09-02 22:10] LABS: Glucose,Whole Blood 154 mg/dL (75-99)
--- NOTE | 2020-09-02 22:14 | P.PN ---
Subjective Progress Note Date: 09/02/20 Principal diagnosis: APL - Acute Hypoxic respiratory failure Seen and examined in ICU today. Plan was to hopefully wean off vent and restart Arsenic treatment (would be started back as day 4) unfortunetly patient did not tolerate wean and was not able to begin today. Supportive care through evening and per pulm if able to wean in am. Discussed with RN and primary team. Blasts increased greater than 50% - increase hydrea to 1000mg po BID today Objective - Vital Signs Vital signs: Vital Signs Temp 98.9 F 09/02/20 20:00 Pulse 133 H 09/02/20 21:00 Resp 16 09/02/20 21:00 BP 81/68 09/02/20 21:00 Pulse Ox 97 09/02/20 21:00 Intake & Output 09/02/20 09/02/20 09/03/20 06:59 18:59 06:59 Intake Total 9352.094 4977.859 226.325 Output Total 1250 2004 325 Balance 96.620 -519.141 -98.675 Weight 101.6 kg Intake: IV 412 412 122 0.9 240 240 60 Normal Saline Pressure 72 72 12 Bag Piperacillin-Tazobactam 3 100 100 50 .375 gm In Sodium Chloride 0.9% 100 ml @ 25 mls/hr IVPB Q12HR [facility] Rx #:[id number] Intake, IV Titration 586.620 635.859 16.325 Amount Diltiazem 125 mg In 110.75 229.75 Sodium Chloride 0.9% 100 ml @ 15 MG/HR 15 mls/hr IV .Q8H20M [facility] Rx#: [id number] Insulin Regular 100 unit 165.017 202.000 10.588 In Sodium Chloride 0.9% 100 ml @ Per Protocol IV .Q0M [facility] Rx#:[id number] Norepinephrine 32 mg In 33.684 12.368 5.737 Sodium Chloride 0.9% 218 ml @ 0.06 MCG/KG/MIN 2. 776 mls/hr IV .Q24H [facility] Rx#:[id number] propofoL 1,000 mg In 277.169 191.741 Empty Bag 1 bag @ Titrate IV .Q0M [facility] Rx#: [id number] Tube Feeding 348 348 58 Other 90 30 Output: Urine 1250 2004 Other: Voiding Method Indwelling Catheter Indwelling Catheter Indwelling Catheter ABP, PAP, CO, CI - Last Documented Arterial Blood Pressure 91/65 - Exam - Constitutional Constitutional Comment(s): Ventilator - EENT Eyes: Present: EOMI ENT:ET tube - Respiratory Respiratory: bilateral: rales, rhonchi - Cardiovascular Rhythm: irregularly irregular Heart sounds: normal: S1, S2 - Gastrointestinal General gastrointestinal: Present: distended, normal bowel sounds, soft - Integumentary Integumentary: Present: normal - Neurologic Neurologic:KARSTEN - Musculoskeletal Musculoskeletal:Atrophy noted to muscles, KARSTEN strength - Psychiatric Psychiatric: KARSTEN - Labs CBC & Chem 7: 09/02/20 03:55 09/02/20 03:55 Labs: Abnormal Lab Results - Last 24 Hours (Table) 08/31/20 09/01/20 09/01/20 Range/Units 10:30 03:50 23:00 WBC (3.8-10.6) k/uL RBC (4.30-5.90) m/uL Hgb (13.0-17.5) gm/dL Hct (39.0-53.0) % RDW (11.5-15.5) % Plt Count (150-450) k/uL Blast Cells % % Monocytes # (Manual) (0-1.0) k/uL Metamyelocytes # (Man) (0) k/uL Myelocytes # (Manual) (0) k/uL Blast Cells # (Man) (0) k/uL Nucleated RBCs (0-0) /100 WBC Haptoglobin 291.0 H (31.2-198.0) mg/dL INR (<1.2) APTT (22.0-30.0) sec ABG pH (7.35-7.45) ABG pCO2 (35-45) mmHg ABG pO2 (83-108) mmHg ABG Total CO2 (19-24) mmol/L ABG O2 Saturation (94-97) % Chloride (98-107) mmol/L BUN (9-20) mg/dL Glucose (74-99) mg/dL POC Glucose (mg/dL) 167 H (75-99) mg/dL Uric Acid (3.5-8.5) mg/dL Calcium (8.4-10.2) mg/dL Magnesium (1.6-2.3) mg/dL AST (17-59) U/L Lactate Dehydrogenase (313-618) U/L Total Protein (6.3-8.2) g/dL Albumin (3.5-5.0) g/dL Viral Test See Below H 09/02/20 09/02/20 09/02/20 Range/Units 00:20 01:22 02:02 WBC (3.8-10.6) k/uL RBC (4.30-5.90) m/uL Hgb (13.0-17.5) gm/dL Hct (39.0-53.0) % RDW (11.5-15.5) % Plt Count (150-450) k/uL Blast Cells % % Monocytes # (Manual) (0-1.0) k/uL Metamyelocytes # (Man) (0) k/uL Myelocytes # (Manual) (0) k/uL Blast Cells # (Man) (0) k/uL Nucleated RBCs (0-0) /100 WBC Haptoglobin (31.2-198.0) mg/dL INR (<1.2) APTT (22.0-30.0) sec ABG pH (7.35-7.45) ABG pCO2 (35-45) mmHg ABG pO2 (83-108) mmHg ABG Total CO2 (19-24) mmol/L ABG O2 Saturation (94-97) % Chloride (98-107) mmol/L BUN (9-20) mg/dL Glucose (74-99) mg/dL POC Glucose (mg/dL) 146 H 143 H 136 H (75-99) mg/dL Uric Acid (3.5-8.5) mg/dL Calcium (8.4-10.2) mg/dL Magnesium (1.6-2.3) mg/dL AST (17-59) U/L Lactate Dehydrogenase (313-618) U/L Total Protein (6.3-8.2) g/dL Albumin (3.5-5.0) g/dL Viral Test 09/02/20 09/02/20 09/02/20 Range/Units 03:04 03:33 03:55 WBC (3.8-10.6) k/uL RBC (4.30-5.90) m/uL Hgb (13.0-17.5) gm/dL Hct (39.0-53.0) % RDW (11.5-15.5) % Plt Count (150-450) k/uL Blast Cells % % Monocytes # (Manual) (0-1.0) k/uL Metamyelocytes # (Man) (0) k/uL Myelocytes # (Manual) (0) k/uL Blast Cells # (Man) (0) k/uL Nucleated RBCs (0-0) /100 WBC Haptoglobin (31.2-198.0) mg/dL INR 1.2 H (<1.2) APTT 20.9 L (22.0-30.0) sec ABG pH (7.35-7.45) ABG pCO2 (35-45) mmHg ABG pO2 (83-108) mmHg ABG Total CO2 (19-24) mmol/L ABG O2 Saturation (94-97) % Chloride (98-107) mmol/L BUN (9-20) mg/dL Glucose (74-99) mg/dL POC Glucose (mg/dL) 203 H 199 H (75-99) mg/dL Uric Acid (3.5-8.5) mg/dL Calcium (8.4-10.2) mg/dL Magnesium (1.6-2.3) mg/dL AST (17-59) U/L Lactate Dehydrogenase (313-618) U/L Total Protein (6.3-8.2) g/dL Albumin (3.5-5.0) g/dL Viral Test 09/02/20 09/02/20 09/02/20 Range/Units 03:55 03:55 03:58 WBC 26.4 H (3.8-10.6) k/uL RBC 2.19 L (4.30-5.90) m/uL Hgb 7.5 L (13.0-17.5) gm/dL Hct 21.2 L (39.0-53.0) % RDW 18.2 H (11.5-15.5) % Plt Count 91 L (150-450) k/uL Blast Cells % 54 H* % Monocytes # (Manual) 1.85 H (0-1.0) k/uL Metamyelocytes # (Man) 0.79 H (0) k/uL Myelocytes # (Manual) 2.90 H (0) k/uL Blast Cells # (Man) 14.26 H (0) k/uL Nucleated RBCs 3 H (0-0) /100 WBC Haptoglobin (31.2-198.0) mg/dL INR (<1.2) APTT (22.0-30.0) sec ABG pH (7.35-7.45) ABG pCO2 (35-45) mmHg ABG pO2 (83-108) mmHg ABG Total CO2 (19-24) mmol/L ABG O2 Saturation (94-97) % Chloride 110 H (98-107) mmol/L BUN 53 H (9-20) mg/dL Glucose 186 H (74-99) mg/dL POC Glucose (mg/dL) 204 H (75-99) mg/dL Uric Acid 1.8 L (3.5-8.5) mg/dL Calcium 7.7 L (8.4-10.2) mg/dL Magnesium 3.3 H (1.6-2.3) mg/dL AST 104 H (17-59) U/L Lactate Dehydrogenase 53559 H (313-618) U/L Total Protein 5.8 L (6.3-8.2) g/dL Albumin 3.1 L (3.5-5.0) g/dL Viral Test 09/02/20 09/02/20 09/02/20 Range/Units 05:06 05:18 06:03 WBC (3.8-10.6) k/uL RBC (4.30-5.90) m/uL Hgb (13.0-17.5) gm/dL Hct (39.0-53.0) % RDW (11.5-15.5) % Plt Count (150-450) k/uL Blast Cells % % Monocytes # (Manual) (0-1.0) k/uL Metamyelocytes # (Man) (0) k/uL Myelocytes # (Manual) (0) k/uL Blast Cells # (Man) (0) k/uL Nucleated RBCs (0-0) /100 WBC Haptoglobin (31.2-198.0) mg/dL INR (<1.2) APTT (22.0-30.0) sec ABG pH 7.47 H (7.35-7.45) ABG pCO2 34 L (35-45) mmHg ABG pO2 110 H (83-108) mmHg ABG Total CO2 26 H (19-24) mmol/L ABG O2 Saturation 98.7 H (94-97) % Chloride (98-107) mmol/L BUN (9-20) mg/dL Glucose (74-99) mg/dL POC Glucose (mg/dL) 190 H 186 H (75-99) mg/dL Uric Acid (3.5-8.5) mg/dL Calcium (8.4-10.2) mg/dL Magnesium (1.6-2.3) mg/dL AST (17-59) U/L Lactate Dehydrogenase (313-618) U/L Total Protein (6.3-8.2) g/dL Albumin (3.5-5.0) g/dL Viral Test 09/02/20 09/02/20 09/02/20 Range/Units 07:08 07:50 09:07 WBC (3.8-10.6) k/uL RBC (4.30-5.90) m/uL Hgb (13.0-17.5) gm/dL Hct (39.0-53.0) % RDW (11.5-15.5) % Plt Count (150-450) k/uL Blast Cells % % Monocytes # (Manual) (0-1.0) k/uL Metamyelocytes # (Man) (0) k/uL Myelocytes # (Manual) (0) k/uL Blast Cells # (Man) (0) k/uL Nucleated RBCs (0-0) /100 WBC Haptoglobin (31.2-198.0) mg/dL INR (<1.2) APTT (22.0-30.0) sec ABG pH (7.35-7.45) ABG pCO2 (35-45) mmHg ABG pO2 (83-108) mmHg ABG Total CO2 (19-24) mmol/L ABG O2 Saturation (94-97) % Chloride (98-107) mmol/L BUN (9-20) mg/dL Glucose (74-99) mg/dL POC Glucose (mg/dL) 169 H 147 H 161 H (75-99) mg/dL Uric Acid (3.5-8.5) mg/dL Calcium (8.4-10.2) mg/dL Magnesium (1.6-2.3) mg/dL AST (17-59) U/L Lactate Dehydrogenase (313-618) U/L Total Protein (6.3-8.2) g/dL Albumin (3.5-5.0) g/dL Viral Test 09/02/20 09/02/20 09/02/20 Range/Units 10:11 11:11 12:15 WBC (3.8-10.6) k/uL RBC (4.30-5.90) m/uL Hgb (13.0-17.5) gm/dL Hct (39.0-53.0) % RDW (11.5-15.5) % Plt Count (150-450) k/uL Blast Cells % % Monocytes # (Manual) (0-1.0) k/uL Metamyelocytes # (Man) (0) k/uL Myelocytes # (Manual) (0) k/uL Blast Cells # (Man) (0) k/uL Nucleated RBCs (0-0) /100 WBC Haptoglobin (31.2-198.0) mg/dL INR (<1.2) APTT (22.0-30.0) sec ABG pH (7.35-7.45) ABG pCO2 (35-45) mmHg ABG pO2 (83-108) mmHg ABG Total CO2 (19-24) mmol/L ABG O2 Saturation (94-97) % Chloride (98-107) mmol/L BUN (9-20) mg/dL Glucose (74-99) mg/dL POC Glucose (mg/dL) 139 H 130 H 200 H (75-99) mg/dL Uric Acid (3.5-8.5) mg/dL Calcium (8.4-10.2) mg/dL Magnesium (1.6-2.3) mg/dL AST (17-59) U/L Lactate Dehydrogenase (313-618) U/L Total Protein (6.3-8.2) g/dL Albumin (3.5-5.0) g/dL Viral Test 09/02/20 09/02/20 09/02/20 Range/Units 13:03 14:59 16:09 WBC (3.8-10.6) k/uL RBC (4.30-5.90) m/uL Hgb (13.0-17.5) gm/dL Hct (39.0-53.0) % RDW (11.5-15.5) % Plt Count (150-450) k/uL Blast Cells % % Monocytes # (Manual) (0-1.0) k/uL Metamyelocytes # (Man) (0) k/uL Myelocytes # (Manual) (0) k/uL Blast Cells # (Man) (0) k/uL Nucleated RBCs (0-0) /100 WBC Haptoglobin (31.2-198.0) mg/dL INR (<1.2) APTT (22.0-30.0) sec ABG pH (7.35-7.45) ABG pCO2 (35-45) mmHg ABG pO2 (83-108) mmHg ABG Total CO2 (19-24) mmol/L ABG O2 Saturation (94-97) % Chloride (98-107) mmol/L BUN (9-20) mg/dL Glucose (74-99) mg/dL POC Glucose (mg/dL) 177 H 129 H 128 H (75-99) mg/dL Uric Acid (3.5-8.5) mg/dL Calcium (8.4-10.2) mg/dL Magnesium (1.6-2.3) mg/dL AST (17-59) U/L Lactate Dehydrogenase (313-618) U/L Total Protein (6.3-8.2) g/dL Albumin (3.5-5.0) g/dL Viral Test 09/02/20 09/02/20 09/02/20 Range/Units 17:56 20:11 21:04 WBC (3.8-10.6) k/uL RBC (4.30-5.90) m/uL Hgb (13.0-17.5) gm/dL Hct (39.0-53.0) % RDW (11.5-15.5) % Plt Count (150-450) k/uL Blast Cells % % Monocytes # (Manual) (0-1.0) k/uL Metamyelocytes # (Man) (0) k/uL Myelocytes # (Manual) (0) k/uL Blast Cells # (Man) (0) k/uL Nucleated RBCs (0-0) /100 WBC Haptoglobin (31.2-198.0) mg/dL INR (<1.2) APTT (22.0-30.0) sec ABG pH (7.35-7.45) ABG pCO2 (35-45) mmHg ABG pO2 (83-108) mmHg ABG Total CO2 (19-24) mmol/L ABG O2 Saturation (94-97) % Chloride (98-107) mmol/L BUN (9-20) mg/dL Glucose (74-99) mg/dL POC Glucose (mg/dL) 152 H 180 H 154 H (75-99) mg/dL Uric Acid (3.5-8.5) mg/dL Calcium (8.4-10.2) mg/dL Magnesium (1.6-2.3) mg/dL AST (17-59) U/L Lactate Dehydrogenase (313-618) U/L Total Protein (6.3-8.2) g/dL Albumin (3.5-5.0) g/dL Viral Test Microbiology - Last 24 Hours (Table) 08/31/20 10:30 Bronchial Washings Culture - Preliminary Bronchial Washings - Random 08/30/20 21:10 Gram Stain - Final Sputum Sputum Culture - Final Assessment and Plan Plan: Assessment and Recommendations: 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 Daily monitoring of bloodwork: - Coags, Fibrinogen - CBC with Diff - CMP, Mag, Phos - Uric Acid, LDH Need to keep magnesium >1.8mg/dl and K+ >4mmol/L. Status post Elitek on 08/26 and 08/30 SCDs for DVT prophylaxis Supportive medications ordered for possible side effects. 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 Unfort worsened today at 56% - recheck stat uric and coags platelets also down to 97K. 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 Hoping to restart 24- 48 hour, continue Hydrea in the interim. 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 - Continue on Steroids/PPI Plan/UPdate 09/02/20: - Unable to wean off vent today - Hoping to try again 09/03 and start arsenic day 4. - Blasts increased to 56% from 12% - Increased hydrea to 1000mg BID Physician Attest: I have completed the full history and physical and developed the full impression and plan, agree with above dictation, dictated as a scribe.
[2020-09-02 22:55] LABS: Glucose,Whole Blood 153 mg/dL (75-99)
[2020-09-02 23:54] LABS: Glucose,Whole Blood 137 mg/dL (75-99)
[2020-09-03] MEDS: DEXAMETHASONE SOD PHOSPHATE 4 MG/ML 1 ML VIAL IV SCH ×5 (00:20→23:49)
[2020-09-03 00:59] LABS: Glucose,Whole Blood 134 mg/dL (75-99)
[2020-09-03 01:53] LABS: Glucose,Whole Blood 148 mg/dL (75-99)
[2020-09-03] MEDS: DILTIAZEM 125 MG in SODIUM CHLORIDE 0.9% 100 ML IV SCH ×3 (02:47→16:52)
[2020-09-03 03:03] LABS: Glucose,Whole Blood 180 mg/dL (75-99)
[2020-09-03 04:03] LABS: Glucose,Whole Blood 153 mg/dL (75-99)
[2020-09-03] MEDS: INSULIN REGULAR 100 UNIT in SODIUM CHLORIDE 0.9% 100 ML IV SCH ×3 (05:14→22:13)
[2020-09-03 05:15] LABS: Glucose,Whole Blood 156 mg/dL (75-99)
[2020-09-03 05:22] LABS: ABG Base Excess 1.8 mmol/L; ABG HCO3 25 mmol/L (21-25); ABG Oxygen Saturation 98.1 % (94-97); ABG PCO2 33 mmHg (35-45); ABG PH 7.49 (7.35-7.45); ABG PO2 96 mmHg (83-108); ABG TCO2 26 mmol/L (19-24); Allen Test Performed? Yes
[2020-09-03 05:40] LABS: Anisocytosis Slight; HCT 22.9 % (39.0-53.0); MCH 33.9 pg (25.0-35.0); MCHC 34.7 g/dL (31.0-37.0); MCV 97.7 fL (80.0-100.0); Macrocytosis Slight; Mean Platelet Volume 9.7; Platelet Count 106 k/uL (150-450); Poikilocytosis Slight; RBC 2.34 m/uL (4.30-5.90); RDW 18.6 % (11.5-15.5)
[2020-09-03 05:49] LABS: Albumin 3.1 g/dL (3.5-5.0); Calcium 7.9 mg/dL (8.4-10.2); Magnesium 3.3 mg/dL (1.6-2.3); Phosphorus 4.6 mg/dL (2.5-4.5); Total Bilirubin 0.9 mg/dL (0.2-1.3); Total Protein 5.8 g/dL (6.3-8.2); Uric Acid 2.4 mg/dL (3.5-8.5)
[2020-09-03 06:12] LABS: Band Neutrophils % 1 %; Blast Cells # (M) 21.15 k/uL (0); INR 1.2 (<1.2); Lymphocytes # (M) 9.28 k/uL (1.0-4.8); Monocytes # (M) 1.48 k/uL (0-1.0); Myelocytes # (M) 1.48 k/uL (0); Myelocytes % 4 %; Neutrophils % (M) 10 %; Nucleated Red Blood Cells 1 /100 WBC (0-0); Prothrombin Time 12.2 sec (9.0-12.0); Total Cells Counted 200; WBC 37.1 k/uL (3.8-10.6)
[2020-09-03 07:13] LABS: Glucose,Whole Blood 174 mg/dL (75-99)
--- NOTE | 2020-09-03 07:50 | XR ---
EXAMINATION TYPE: XR chest 1V portable DATE OF EXAM: 09/03/2020 COMPARISON: 09/02/2020 INDICATION: Tube placement TECHNIQUE: Single frontal view of the chest is obtained. FINDINGS: The heart size is upper limits of normal. The pulmonary vasculature is normal. Mild left lower lobe infiltrate is present. Endotracheal tube tip is above the raine. Left central venous catheter tip is in the superior vena c sigrid region. Nasogastric tube tip is within the left upper quadrant of the abdomen. IMPRESSION: 1. Mild left lower lobe infiltrate. 2. Lines and catheters discussed above
[2020-09-03] MEDS: PIPERACILLIN-TAZOBACTAM 3.375 GM in SODIUM CHLORIDE 0.9% 100 ML IVPB SCH ×3 (08:39→23:49)
[2020-09-03] MEDS: CHLORHEXIDINE GLUCONATE 15 ML CUP MUCOUS MEM SCH ×2 (08:40→20:15)
[2020-09-03] MEDS: AMIODARONE 200 MG TAB PO SCH ×2 (08:40→20:13)
[2020-09-03] MEDS: TAMSULOSIN 0.4 MG CAP.ER.24H PO SCH ×2 (08:40→20:13)
[2020-09-03] MEDS: PANTOPRAZOLE 40 MG/10 ML VIAL IVP SCH ×2 (08:40→20:15)
[2020-09-03] MEDS: GABAPENTIN 100 MG CAP PO SCH ×3 (08:40→20:13)
[2020-09-03] MEDS: FUROSEMIDE 10 MG/ML 4 ML VIAL IV SCH (08:40)
[2020-09-03] MEDS: METOPROLOL TARTRATE 50 MG TAB PO SCH ×3 (08:40→20:13)
[2020-09-03] MEDS: DIGOXIN 250 MCG TAB PO SCH (08:41)
[2020-09-03] MEDS: MAGNESIUM OXIDE 400 MG TAB PO SCH (08:41)
[2020-09-03] MEDS: POTASSIUM CHLORIDE ER 20 MEQ TAB.ER PO SCH ×2 (08:41→22:09)
[2020-09-03] MEDS: HYDROXYUREA 500 MG CAP PO SCH (08:56)
[2020-09-03 09:17] LABS: Glucose,Whole Blood 143 mg/dL (75-99)
[2020-09-03 10:11] LABS: Glucose,Whole Blood 146 mg/dL (75-99)
[2020-09-03 11:00] LABS: Glucose,Whole Blood 152 mg/dL (75-99)
--- NOTE | 2020-09-03 11:12 | P.PN ---
Subjective This is a pleasant 75-year-old male currently undergoing chemotherapy. He is in the intensive care unit currently intubated on levophed. He continues to be atrial flutter with rapid rates. Currently up around 160 despite being on max does of lopressor, cardizem and amiodarone. Digoxin was added yesterday. It seemed to work through the night however since around 0500 his heart rates are back up sustaining at 160. His sedation holiday did not go well yesterday, currently back on diprivan. He appears more agitated today, breathing is labored on mechanical ventilation with fluctuating saturations despite being on 100% oxygenation. Blood pressure 92/53. Laboratory data reviewed, WBC 37, hemoglobin 8, platelets 106, blast cell percentage is 57, INR is 1.2, pH is 7.49, pCO2 33 and bicarb 25, sodium 145, potassium 5, creatinine 1.0 and magnesium 3.3. Repeat echo yesterday revealed a change in LV systolic function with apical lateral, apical inferior and apical septal wall motion hypokinesia and ejection fraction 30-35%, moderate aortic stenosis with a mean gradient of 18 mmHg, mild to moderate mitral regurgitation and mitral stenosis with a mean gradient of 5 mmHg. GENERAL: No acute distress. NECK: Supple without JVD or thyromegaly. LUNGS: Bibasilar rales, no wheezes or rhonchi Respiration equal and unlabored. Diminished. HEART: Irregular rate and rhythm with systolic ejection murmur at the base, no rubs or gallops. S1 and S2 heard. EXTREMITIES: Normal range of motion, bilateral lower extremity trace pitting edema. No clubbing or cyanosis. Peripheral pulses intact. ASSESSMENT Paroxysmal atrial fibrillation with rapid ventricular response. Status post cardioversion 2017 Acute on chronic diastolic heart failure Acute systolic heart failure Aortic stenosis Hypertension Dyslipidemia Diabetes mellitus PLAN Increase digoxin to 250 mcg daily. Discussed with ICU art teacher and not currently planning for cardioversion given his inability to be maintained on anti-coagulation. Prognosis guarded, further recommendations to follow. Nurse Practitioner note has been reviewed, I agree with a documented findings and plan of care. Patient was seen and examined. Objective - Vital Signs Vital signs: Vital Signs Temp 100.0 F H 09/03/20 08:00 Pulse 125 H 09/03/20 10:00 Resp 26 H 09/03/20 10:00 BP 109/79 09/03/20 08:15 Pulse Ox 96 09/03/20 10:00 Intake & Output 09/02/20 09/03/20 09/03/20 18:59 06:59 18:59 Intake Total 8813.237 1583.584 588.579 Output Total 2004 1075 370 Balance -519.141 238.584 218.579 Weight 101.6 kg Intake: IV 412 359 162 0.9 240 270 50 Normal Saline Pressure 72 39 12 Bag Piperacillin-Tazobactam 3 100 50 100 .375 gm In Sodium Chloride 0.9% 100 ml @ 25 mls/hr IVPB Q12HR ANA Rx #:[id number] Intake, IV Titration 635.859 545.584 280.579 Amount Diltiazem 125 mg In 229.75 125 112 Sodium Chloride 0.9% 100 ml @ 15 MG/HR 15 mls/hr IV .Q8H20M ANA Rx#: [id number] Insulin Regular 100 unit 202.000 101.000 75.919 In Sodium Chloride 0.9% 100 ml @ Per Protocol IV .Q0M ANA Rx#:[id number] Norepinephrine 32 mg In 12.368 21.235 Sodium Chloride 0.9% 218 ml @ 0.06 MCG/KG/MIN 2. 776 mls/hr IV .Q24H ANA Rx#:[id number] propofoL 1,000 mg In 191.741 298.349 92.660 Empty Bag 1 bag @ Titrate IV .Q0M ANA Rx#: [id number] Tube Feeding 348 319 116 Other 90 90 30 Output: Urine 2004 1075 370 Other: Voiding Method Indwelling Catheter Indwelling Catheter Indwelling Catheter ABP, PAP, CO, CI - Last Documented Arterial Blood Pressure 92/53 - Labs CBC & Chem 7: 09/03/20 05:15 09/03/20 05:15 Labs: Abnormal Lab Results - Last 24 Hours (Table) 08/31/20 09/01/20 09/02/20 Range/Units 10:30 03:50 11:11 WBC (3.8-10.6) k/uL RBC (4.30-5.90) m/uL Hgb (13.0-17.5) gm/dL Hct (39.0-53.0) % RDW (11.5-15.5) % Plt Count (150-450) k/uL Blast Cells % % Lymphocytes # (Manual) (1.0-4.8) k/uL Monocytes # (Manual) (0-1.0) k/uL Myelocytes # (Manual) (0) k/uL Blast Cells # (Man) (0) k/uL Nucleated RBCs (0-0) /100 WBC Haptoglobin 291.0 H (31.2-198.0) mg/dL PT (9.0-12.0) sec INR (<1.2) APTT (22.0-30.0) sec ABG pH (7.35-7.45) ABG pCO2 (35-45) mmHg ABG Total CO2 (19-24) mmol/L ABG O2 Saturation (94-97) % Chloride (98-107) mmol/L BUN (9-20) mg/dL Glucose (74-99) mg/dL POC Glucose (mg/dL) 130 H (75-99) mg/dL Uric Acid (3.5-8.5) mg/dL Calcium (8.4-10.2) mg/dL Phosphorus (2.5-4.5) mg/dL Magnesium (1.6-2.3) mg/dL AST (17-59) U/L Lactate Dehydrogenase (313-618) U/L Total Protein (6.3-8.2) g/dL Albumin (3.5-5.0) g/dL Viral Test See Below H 09/02/20 09/02/20 09/02/20 Range/Units 12:15 13:03 14:59 WBC (3.8-10.6) k/uL RBC (4.30-5.90) m/uL Hgb (13.0-17.5) gm/dL Hct (39.0-53.0) % RDW (11.5-15.5) % Plt Count (150-450) k/uL Blast Cells % % Lymphocytes # (Manual) (1.0-4.8) k/uL Monocytes # (Manual) (0-1.0) k/uL Myelocytes # (Manual) (0) k/uL Blast Cells # (Man) (0) k/uL Nucleated RBCs (0-0) /100 WBC Haptoglobin (31.2-198.0) mg/dL PT (9.0-12.0) sec INR (<1.2) APTT (22.0-30.0) sec ABG pH (7.35-7.45) ABG pCO2 (35-45) mmHg ABG Total CO2 (19-24) mmol/L ABG O2 Saturation (94-97) % Chloride (98-107) mmol/L BUN (9-20) mg/dL Glucose (74-99) mg/dL POC Glucose (mg/dL) 200 H 177 H 129 H (75-99) mg/dL Uric Acid (3.5-8.5) mg/dL Calcium (8.4-10.2) mg/dL Phosphorus (2.5-4.5) mg/dL Magnesium (1.6-2.3) mg/dL AST (17-59) U/L Lactate Dehydrogenase (313-618) U/L Total Protein (6.3-8.2) g/dL Albumin (3.5-5.0) g/dL Viral Test 09/02/20 09/02/20 09/02/20 Range/Units 16:09 17:56 20:11 WBC (3.8-10.6) k/uL RBC (4.30-5.90) m/uL Hgb (13.0-17.5) gm/dL Hct (39.0-53.0) % RDW (11.5-15.5) % Plt Count (150-450) k/uL Blast Cells % % Lymphocytes # (Manual) (1.0-4.8) k/uL Monocytes # (Manual) (0-1.0) k/uL Myelocytes # (Manual) (0) k/uL Blast Cells # (Man) (0) k/uL Nucleated RBCs (0-0) /100 WBC Haptoglobin (31.2-198.0) mg/dL PT (9.0-12.0) sec INR (<1.2) APTT (22.0-30.0) sec ABG pH (7.35-7.45) ABG pCO2 (35-45) mmHg ABG Total CO2 (19-24) mmol/L ABG O2 Saturation (94-97) % Chloride (98-107) mmol/L BUN (9-20) mg/dL Glucose (74-99) mg/dL POC Glucose (mg/dL) 128 H 152 H 180 H (75-99) mg/dL Uric Acid (3.5-8.5) mg/dL Calcium (8.4-10.2) mg/dL Phosphorus (2.5-4.5) mg/dL Magnesium (1.6-2.3) mg/dL AST (17-59) U/L Lactate Dehydrogenase (313-618) U/L Total Protein (6.3-8.2) g/dL Albumin (3.5-5.0) g/dL Viral Test 09/02/20 09/02/20 09/02/20 Range/Units 21:04 22:09 22:34 WBC (3.8-10.6) k/uL RBC (4.30-5.90) m/uL Hgb (13.0-17.5) gm/dL Hct (39.0-53.0) % RDW (11.5-15.5) % Plt Count (150-450) k/uL Blast Cells % % Lymphocytes # (Manual) (1.0-4.8) k/uL Monocytes # (Manual) (0-1.0) k/uL Myelocytes # (Manual) (0) k/uL Blast Cells # (Man) (0) k/uL Nucleated RBCs (0-0) /100 WBC Haptoglobin (31.2-198.0) mg/dL PT (9.0-12.0) sec INR (<1.2) APTT 20.2 L (22.0-30.0) sec ABG pH (7.35-7.45) ABG pCO2 (35-45) mmHg ABG Total CO2 (19-24) mmol/L ABG O2 Saturation (94-97) % Chloride (98-107) mmol/L BUN (9-20) mg/dL Glucose (74-99) mg/dL POC Glucose (mg/dL) 154 H 154 H (75-99) mg/dL Uric Acid (3.5-8.5) mg/dL Calcium (8.4-10.2) mg/dL Phosphorus (2.5-4.5) mg/dL Magnesium (1.6-2.3) mg/dL AST (17-59) U/L Lactate Dehydrogenase (313-618) U/L Total Protein (6.3-8.2) g/dL Albumin (3.5-5.0) g/dL Viral Test 09/02/20 09/02/20 09/03/20 Range/Units 22:54 23:53 00:58 WBC (3.8-10.6) k/uL RBC (4.30-5.90) m/uL Hgb (13.0-17.5) gm/dL Hct (39.0-53.0) % RDW (11.5-15.5) % Plt Count (150-450) k/uL Blast Cells % % Lymphocytes # (Manual) (1.0-4.8) k/uL Monocytes # (Manual) (0-1.0) k/uL Myelocytes # (Manual) (0) k/uL Blast Cells # (Man) (0) k/uL Nucleated RBCs (0-0) /100 WBC Haptoglobin (31.2-198.0) mg/dL PT (9.0-12.0) sec INR (<1.2) APTT (22.0-30.0) sec ABG pH (7.35-7.45) ABG pCO2 (35-45) mmHg ABG Total CO2 (19-24) mmol/L ABG O2 Saturation (94-97) % Chloride (98-107) mmol/L BUN (9-20) mg/dL Glucose (74-99) mg/dL POC Glucose (mg/dL) 153 H 137 H 134 H (75-99) mg/dL Uric Acid (3.5-8.5) mg/dL Calcium (8.4-10.2) mg/dL Phosphorus (2.5-4.5) mg/dL Magnesium (1.6-2.3) mg/dL AST (17-59) U/L Lactate Dehydrogenase (313-618) U/L Total Protein (6.3-8.2) g/dL Albumin (3.5-5.0) g/dL Viral Test 09/03/20 09/03/20 09/03/20 Range/Units 01:52 03:02 04:01 WBC (3.8-10.6) k/uL RBC (4.30-5.90) m/uL Hgb (13.0-17.5) gm/dL Hct (39.0-53.0) % RDW (11.5-15.5) % Plt Count (150-450) k/uL Blast Cells % % Lymphocytes # (Manual) (1.0-4.8) k/uL Monocytes # (Manual) (0-1.0) k/uL Myelocytes # (Manual) (0) k/uL Blast Cells # (Man) (0) k/uL Nucleated RBCs (0-0) /100 WBC Haptoglobin (31.2-198.0) mg/dL PT (9.0-12.0) sec INR (<1.2) APTT (22.0-30.0) sec ABG pH (7.35-7.45) ABG pCO2 (35-45) mmHg ABG Total CO2 (19-24) mmol/L ABG O2 Saturation (94-97) % Chloride (98-107) mmol/L BUN (9-20) mg/dL Glucose (74-99) mg/dL POC Glucose (mg/dL) 148 H 180 H 153 H (75-99) mg/dL Uric Acid (3.5-8.5) mg/dL Calcium (8.4-10.2) mg/dL Phosphorus (2.5-4.5) mg/dL Magnesium (1.6-2.3) mg/dL AST (17-59) U/L Lactate Dehydrogenase (313-618) U/L Total Protein (6.3-8.2) g/dL Albumin (3.5-5.0) g/dL Viral Test 09/03/20 09/03/20 09/03/20 Range/Units 05:13 05:15 05:15 WBC 37.1 H (3.8-10.6) k/uL RBC 2.34 L (4.30-5.90) m/uL Hgb 8.0 L (13.0-17.5) gm/dL Hct 22.9 L (39.0-53.0) % RDW 18.6 H (11.5-15.5) % Plt Count 106 L (150-450) k/uL Blast Cells % 57 H* % Lymphocytes # (Manual) 9.28 H (1.0-4.8) k/uL Monocytes # (Manual) 1.48 H (0-1.0) k/uL Myelocytes # (Manual) 1.48 H (0) k/uL Blast Cells # (Man) 21.15 H (0) k/uL Nucleated RBCs 1 H (0-0) /100 WBC Haptoglobin (31.2-198.0) mg/dL PT (9.0-12.0) sec INR (<1.2) APTT (22.0-30.0) sec ABG pH (7.35-7.45) ABG pCO2 (35-45) mmHg ABG Total CO2 (19-24) mmol/L ABG O2 Saturation (94-97) % Chloride 114 H (98-107) mmol/L BUN 50 H (9-20) mg/dL Glucose 148 H (74-99) mg/dL POC Glucose (mg/dL) 156 H (75-99) mg/dL Uric Acid 2.4 L (3.5-8.5) mg/dL Calcium 7.9 L (8.4-10.2) mg/dL Phosphorus 4.6 H (2.5-4.5) mg/dL Magnesium 3.3 H (1.6-2.3) mg/dL AST 106 H (17-59) U/L Lactate Dehydrogenase 92953 H (313-618) U/L Total Protein 5.8 L (6.3-8.2) g/dL Albumin 3.1 L (3.5-5.0) g/dL Viral Test 09/03/20 09/03/20 09/03/20 Range/Units 05:15 05:18 07:12 WBC (3.8-10.6) k/uL RBC (4.30-5.90) m/uL Hgb (13.0-17.5) gm/dL Hct (39.0-53.0) % RDW (11.5-15.5) % Plt Count (150-450) k/uL Blast Cells % % Lymphocytes # (Manual) (1.0-4.8) k/uL Monocytes # (Manual) (0-1.0) k/uL Myelocytes # (Manual) (0) k/uL Blast Cells # (Man) (0) k/uL Nucleated RBCs (0-0) /100 WBC Haptoglobin (31.2-198.0) mg/dL PT 12.2 H (9.0-12.0) sec INR 1.2 H (<1.2) APTT (22.0-30.0) sec ABG pH 7.49 H (7.35-7.45) ABG pCO2 33 L (35-45) mmHg ABG Total CO2 26 H (19-24) mmol/L ABG O2 Saturation 98.1 H (94-97) % Chloride (98-107) mmol/L BUN (9-20) mg/dL Glucose (74-99) mg/dL POC Glucose (mg/dL) 174 H (75-99) mg/dL Uric Acid (3.5-8.5) mg/dL Calcium (8.4-10.2) mg/dL Phosphorus (2.5-4.5) mg/dL Magnesium (1.6-2.3) mg/dL AST (17-59) U/L Lactate Dehydrogenase (313-618) U/L Total Protein (6.3-8.2) g/dL Albumin (3.5-5.0) g/dL Viral Test 09/03/20 09/03/20 09/03/20 Range/Units 09:15 10:09 10:58 WBC (3.8-10.6) k/uL RBC (4.30-5.90) m/uL Hgb (13.0-17.5) gm/dL Hct (39.0-53.0) % RDW (11.5-15.5) % Plt Count (150-450) k/uL Blast Cells % % Lymphocytes # (Manual) (1.0-4.8) k/uL Monocytes # (Manual) (0-1.0) k/uL Myelocytes # (Manual) (0) k/uL Blast Cells # (Man) (0) k/uL Nucleated RBCs (0-0) /100 WBC Haptoglobin (31.2-198.0) mg/dL PT (9.0-12.0) sec INR (<1.2) APTT (22.0-30.0) sec ABG pH (7.35-7.45) ABG pCO2 (35-45) mmHg ABG Total CO2 (19-24) mmol/L ABG O2 Saturation (94-97) % Chloride (98-107) mmol/L BUN (9-20) mg/dL Glucose (74-99) mg/dL POC Glucose (mg/dL) 143 H 146 H 152 H (75-99) mg/dL Uric Acid (3.5-8.5) mg/dL Calcium (8.4-10.2) mg/dL Phosphorus (2.5-4.5) mg/dL Magnesium (1.6-2.3) mg/dL AST (17-59) U/L Lactate Dehydrogenase (313-618) U/L Total Protein (6.3-8.2) g/dL Albumin (3.5-5.0) g/dL Viral Test Microbiology - Last 24 Hours (Table) 08/31/20 10:30 Bronchial Washings Culture - Preliminary Bronchial Washings - Random 08/30/20 21:10 Gram Stain - Final Sputum Sputum Culture - Final
[2020-09-03 12:31] LABS: Glucose,Whole Blood 147 mg/dL (75-99)
[2020-09-03] MEDS: HYDROcodone/APAP 10-325MG 1 EACH TAB PO PRN (12:38)
[2020-09-03 13:03] LABS: Glucose,Whole Blood 145 mg/dL (75-99)
[2020-09-03 14:03] LABS: Glucose,Whole Blood 150 mg/dL (75-99)
--- NOTE | 2020-09-03 14:13 | P.PN ---
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 The patient got transferred to the intensive care unit yesterday because of an acute hypoxic respiratory failu re/acute lung injury with development of bilateral pulmonary infiltrates. Note that the patient was originally hospitalized on 08/24/2024 shortness of breath and difficulty breathing. The patient is known to have chronic atrial fibrillation along with hypertension and hyperlipidemia. He was also being seen by cardiology regarding atrial fibrillation. As the patient developed breath and pulmonary infiltrates and acute hypoxic respiratory failure, the patient a chest to the intensive care unit and he was placed on a BiPAP at a pressure of 14/5 cm of water. FiO2 was as high as 90% and it was being titrated. The patient also had been placed on broad-spectrum antibiotics including IV Zosyn. He was being diuresis with IV Lasix 40 mg every 12 hours. He was on a Cardizem drip at 15 mg an hour to control atrial fibrillation. Remains on Decadron 5 mg IV every 6 hours. The chest x-ray as mentioned shows interval development of bilateral perihilar pulmonary infiltrates which are currently diffuse. The patient demonstrated gradual improvement in the white cell count from a baseline of 0.7 up to 20 and the platelet count is up to 79 with a hemoglobin of 8.0. The patient did not receive any packed RBC transfusions. The differential count shows 46% blasts. Renal function is impaired in the creatinine is 1.47 as the patient is being diuresed. Uric acid level is up to 8.9 with a calcium level of 8.3 and phosphorus level of 5.8 and LDH level was as high as 5244 indicating the possibility of a tumor lysis syndrome. Based on that, the patient was given a dose of respirator he carries yesterday and urine acid level is improved considerably. The echo from last month showed a preserved LV function with an ejection fraction of 6065%. The patient has mild MR, RV is mildly enlarged. Note that the patient over progressively more short of breath and hypoxic. At point, the patient was intubated and placed on a mechanical ventilator. I saw this patient this morning. The patient was already intubated on a mechanical ventilator on assist control mode with a rate of 24 with a tidal volume of 450 and FiO2 of 50% with a PEEP of 10. The blood gas showed a pH of 7.42 with a pC O2 of 40 and pO2 of 104. This was on FiO2 of 60%. The patient was sedated with propofol running at 75 mg per KG per minute. The patient is also on insulin at 5 units an hour for blood sugar control. The patient is on norepinephrine infusion at 0.06 units per KG per minute. Cardizem drip is running at 50 mg an hour in regards to her atrial fibrillation. The heart rate is in the order of 110-120. He is afebrile. Chest x-rays showing bilateral pulmonary infiltrates, stable compared to yesterday. immediately a bronchoscopy was done and the bronchioloalveolar lavage of the right middle lobe was collected as there was a concern of an underlying infection. The patient is currently on IV Zosyn. Lasix was discontinued. On 09/01/2020, the patient is being seen in follow-up in the intensive care unit. The patient remains intubated on a mechanical ventilator. This morning the patient is sedated with propofol at the rate of 45 g per KG per minute. The patient remains on mechanical ventilator on assist control mode at the rate of 24 with a tidal volume of 450 and FiO2 of 40% with a PEEP of 10. Blood gases from today showed a pH of 7.44 with a pCO2 of 38 and pO2 of 152. Chest x-ray still showing diffuse bilateral pulmonary infiltrates slightly improved compared to yesterday. Oxidation is also improved. Based on that, I made recommendations to gradually wean off the PEEP down to 5 cm of water. The patient unfortunately continues to be in atrial fibrillation. The patient is not adequately controlled. The patient is on a Cardizem drip at 15 mg an hour. The patient is also on amiodarone 0.5 mg an hour and the patient is also on metoprolol 100 mg by mouth 3 times a day. The patient is being supported with norepinephrine infusion for blood pressure support at the rate of 0.06 mg per KG per minute. The patient is afebrile. The patient is currently on IV Zosyn. The patient's bronchoscopy and the bronchioloalveolar lavage was done yesterday and the patient does not have any possible microbial growth for now. No fever. No chills. He is receiving daily Lasix 40 mg IV push to maintain adequate fluid balance. In terms of hematologic profile, the white cell count is up to 28 and the patient has 12% blast cells. The platelet count is at 96 with a hemoglobin of 7.3. The patient is currently on Hydrea the patient is also on Decadron. Discussed the case with oncology. We will hold off the ATRA treatment as the patient has gone into differentiation syndrome. On 09/02/2020, I'm seeing the patient for a follow-up in the intensive care unit. The patient remains intubated on a mechanical ventilator. This morning the patient remains on propofol at 50 g per KG per minute. The patient is also on a mechanical ventilator at the rate of 24 with a tidal volume of 450 and FiO2 of 40% with a PEEP of 5. Chest x-ray is showing stable bilateral pulmonary infiltrates without any major change compared to yesterday. Meanwhile the blood gases from today showed a pH of 7.47 with a pCO2 of 34 and pO2 of 110. The patient remains in atrial fibrillation on obviously it has been very difficult to control the rate. He is not a candidate for cardioversion and the patient cannot take any anticoagulants. 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 In terms of his A. 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 Digoxin was also added by cardiology. Heart rate is ranging between 110 and 130, irregular. He is afebrile. He is covered with Zosyn. The bronchoscopy and bronchial alveolar lavage done earlier yielded no microbial growth. The patient remains on Decadron. The patient remains on Hydrea. LDH is on the rise. White cell count today is at 26.4. Platelet count is at 91. The patient is 54% blasts and off and sleepy is a sign of progression of his underlying AML. The BUN is at 53 with a creatinine of 1.05. The patient was given daily Lasix and the patient's fluid balance has been +7 40 mL over the past 24 hours. The patient is on enteral feeding for nutritional support. The patient is well sedated. A sedation holiday was given today. He was taken off the propofol and subsequently became more tachycardic and restless and asynchronous with a mechanical ventilator and the procedure had to be aborted and the patient was placed back on sedation. On 09/03/2020, seeing this patient for a follow-up in the intensive care unit and the patient is doing poorly. The patient remains sedated on a mechanical ventilator. The patient is on propofol infusion running at 60 g per KG per minute. The patient is on a mechanical ventilator session the same vent setting is yesterday with a rate of 24 with a tidal volume of 450 and FiO2 of 40% with a PEEP of 5. The blood gases showed a pH of 7.49 with a pCO2 of 33 and pO2 of 94. Chest x-ray findings are essentially stable. Nevertheless, the patient continues to be in atrial fibrillation with a rapid ventricular response and has been very difficult to control his heart rate. He is currently on a combination of Cardizem drip at 15 mg an hour and addition to amiodarone drip at 0.5 mg per minute and metoprolol at a dose of 100 mg by mouth 3 times a day. He is also on digoxin 0.25 mg on a daily basis. The patient is still having A. fib RVR despite this ongoing treatment for rate control. His heart rate is ranging between 120 and 160, irregular and the patient is also requiring norepinephrine infusion for blood pressure control and the patient is currently on levo fed running at 7 g per minute. Cardiology is on the case and the patient will not be cardioverted based on our ability to provide him any anticoagulants at the time of cardioversion. Hematologically, he is still in acute leukemic crisis. The patient platelet count is at 106. The patient has a 57% blasts. LDH pulses on the rise the patient has a BUN of 50 with a creatinine of 1.0. Uric acid is up to 2.4. Bilirubin is at 0.9, AST slightly elevated at 104. The patient was given Hydrea by hematology oncology at were unable to give him because of our inability to crushed medication. He is on Decadron 5 mg every 6 hours. The patient is afebrile. The patient on IV Zosyn. The bronchioloalveolar lavage was negative. Chest x-ray findings are stable. The neck fluid balance is in order of 34 1 mL positive and the patient is receiving daily Lasix dose of 40 mg IV push. Objective - Vital Signs Vital signs: Vital Signs Temp 100.8 F H 09/03/20 12:00 Pulse 121 H 09/03/20 13:00 Resp 24 09/03/20 13:00 BP 94/49 09/03/20 12:00 Pulse Ox 98 09/03/20 13:00 Intake & Output 09/02/20 09/03/20 09/03/20 18:59 06:59 18:59 Intake Total 8632.959 4856.584 922.614 Output Total 2004 1075 490 Balance -519.141 238.584 432.614 Weight 101.6 kg 101.6 kg Intake: IV 412 359 295 0.9 240 270 65 Normal Saline Pressure 72 39 30 Bag Piperacillin-Tazobactam 3 100 50 200 .375 gm In Sodium Chloride 0.9% 100 ml @ 25 mls/hr IVPB Q12HR ANA Rx #:[id number] Intake, IV Titration 635.859 545.584 391.614 Amount Diltiazem 125 mg In 229.75 125 112 Sodium Chloride 0.9% 100 ml @ 15 MG/HR 15 mls/hr IV .Q8H20M ANA Rx#: [id number] Insulin Regular 100 unit 202.000 101.000 101.000 In Sodium Chloride 0.9% 100 ml @ Per Protocol IV .Q0M ANA Rx#:[id number] Norepinephrine 32 mg In 12.368 21.235 Sodium Chloride 0.9% 218 ml @ 0.06 MCG/KG/MIN 2. 776 mls/hr IV .Q24H ANA Rx#:[id number] propofoL 1,000 mg In 191.741 298.349 178.614 Empty Bag 1 bag @ Titrate IV .Q0M ANA Rx#: [id number] Tube Feeding 348 319 176 Other 90 90 60 Output: Urine 2004 1075 490 Other: Voiding Method Indwelling Catheter Indwelling Catheter Indwelling Catheter ABP, PAP, CO, CI - Last Documented Arterial Blood Pressure 95/46 - Exam Gen. appearance the patient is currently sedated, comfortable intubated on a mechanical ventilator. The patient is sedated with propofol. Orogastric and orotracheal tube are both in place. Head exam was generally normal. There was no scleral icterus or corneal arcus. Mucous membranes were moist. Neck was supple and without jugular venous distension, thyromegaly, or carotid bruits. Carotids were easily palpable bilaterally. There was no adenopathy.the patient is a left IJ triple-lumen catheter in place. Cardiac exam revealed the PMI to be normally situated and sized. The rhythm was irregular consistent with atrial fibrillation with rapid ventricular response and no extrasystoles were noted during several minutes of auscultation. The first and second heart sounds were normal and physiologic splitting of the second heart sound was noted. There were no murmurs, rubs, clicks, or gallops. Lungs were clear to auscultation and percussion, and with normal diaphragmatic excursion. No wheezes or rales were noted. Abdominal exam revealed normal bowel sounds. The abdomen was soft, non-tender, and without masses, organomegaly, or appreciable enlargement of the abdominal aorta. Examination of the extremities revealed easily palpable radial, femoral and pedal pulses. There was no cyanosis, clubbing or edema. Examination of the skin revealed no evidence of significant rashes, suspicious appearing nevi or other concerning lesions. Neurologically the patient is sedated and the patient is calm and comfortable at this point in time. Was sedated on a mechanical ventilator. A sedation holiday was given to this patient yesterday and failed as the patient became quite agitated and restless. He became also hemodynamically unstable and a significant the mechanical ventilator and the procedure to be aborted. - Labs CBC & Chem 7: 09/03/20 05:15 09/03/20 05:15 Labs: Abnormal Lab Results - Last 24 Hours (Table) 08/31/20 09/02/20 09/02/20 Range/Units 10:30 14:59 16:09 WBC (3.8-10.6) k/uL RBC (4.30-5.90) m/uL Hgb (13.0-17.5) gm/dL Hct (39.0-53.0) % RDW (11.5-15.5) % Plt Count (150-450) k/uL Blast Cells % % Lymphocytes # (Manual) (1.0-4.8) k/uL Monocytes # (Manual) (0-1.0) k/uL Myelocytes # (Manual) (0) k/uL Blast Cells # (Man) (0) k/uL Nucleated RBCs (0-0) /100 WBC PT (9.0-12.0) sec INR (<1.2) APTT (22.0-30.0) sec ABG pH (7.35-7.45) ABG pCO2 (35-45) mmHg ABG Total CO2 (19-24) mmol/L ABG O2 Saturation (94-97) % Chloride (98-107) mmol/L BUN (9-20) mg/dL Glucose (74-99) mg/dL POC Glucose (mg/dL) 129 H 128 H (75-99) mg/dL Uric Acid (3.5-8.5) mg/dL Calcium (8.4-10.2) mg/dL Phosphorus (2.5-4.5) mg/dL Magnesium (1.6-2.3) mg/dL AST (17-59) U/L Lactate Dehydrogenase (313-618) U/L Total Protein (6.3-8.2) g/dL Albumin (3.5-5.0) g/dL Viral Test See Below H 09/02/20 09/02/20 09/02/20 Range/Units 17:56 20:11 21:04 WBC (3.8-10.6) k/uL RBC (4.30-5.90) m/uL Hgb (13.0-17.5) gm/dL Hct (39.0-53.0) % RDW (11.5-15.5) % Plt Count (150-450) k/uL Blast Cells % % Lymphocytes # (Manual) (1.0-4.8) k/uL Monocytes # (Manual) (0-1.0) k/uL Myelocytes # (Manual) (0) k/uL Blast Cells # (Man) (0) k/uL Nucleated RBCs (0-0) /100 WBC PT (9.0-12.0) sec INR (<1.2) APTT (22.0-30.0) sec ABG pH (7.35-7.45) ABG pCO2 (35-45) mmHg ABG Total CO2 (19-24) mmol/L ABG O2 Saturation (94-97) % Chloride (98-107) mmol/L BUN (9-20) mg/dL Glucose (74-99) mg/dL POC Glucose (mg/dL) 152 H 180 H 154 H (75-99) mg/dL Uric Acid (3.5-8.5) mg/dL Calcium (8.4-10.2) mg/dL Phosphorus (2.5-4.5) mg/dL Magnesium (1.6-2.3) mg/dL AST (17-59) U/L Lactate Dehydrogenase (313-618) U/L Total Protein (6.3-8.2) g/dL Albumin (3.5-5.0) g/dL Viral Test 09/02/20 09/02/20 09/02/20 Range/Units 22:09 22:34 22:54 WBC (3.8-10.6) k/uL RBC (4.30-5.90) m/uL Hgb (13.0-17.5) gm/dL Hct (39.0-53.0) % RDW (11.5-15.5) % Plt Count (150-450) k/uL Blast Cells % % Lymphocytes # (Manual) (1.0-4.8) k/uL Monocytes # (Manual) (0-1.0) k/uL Myelocytes # (Manual) (0) k/uL Blast Cells # (Man) (0) k/uL Nucleated RBCs (0-0) /100 WBC PT (9.0-12.0) sec INR (<1.2) APTT 20.2 L (22.0-30.0) sec ABG pH (7.35-7.45) ABG pCO2 (35-45) mmHg ABG Total CO2 (19-24) mmol/L ABG O2 Saturation (94-97) % Chloride (98-107) mmol/L BUN (9-20) mg/dL Glucose (74-99) mg/dL POC Glucose (mg/dL) 154 H 153 H (75-99) mg/dL Uric Acid (3.5-8.5) mg/dL Calcium (8.4-10.2) mg/dL Phosphorus (2.5-4.5) mg/dL Magnesium (1.6-2.3) mg/dL AST (17-59) U/L Lactate Dehydrogenase (313-618) U/L Total Protein (6.3-8.2) g/dL Albumin (3.5-5.0) g/dL Viral Test 09/02/20 09/03/20 09/03/20 Range/Units 23:53 00:58 01:52 WBC (3.8-10.6) k/uL RBC (4.30-5.90) m/uL Hgb (13.0-17.5) gm/dL Hct (39.0-53.0) % RDW (11.5-15.5) % Plt Count (150-450) k/uL Blast Cells % % Lymphocytes # (Manual) (1.0-4.8) k/uL Monocytes # (Manual) (0-1.0) k/uL Myelocytes # (Manual) (0) k/uL Blast Cells # (Man) (0) k/uL Nucleated RBCs (0-0) /100 WBC PT (9.0-12.0) sec INR (<1.2) APTT (22.0-30.0) sec ABG pH (7.35-7.45) ABG pCO2 (35-45) mmHg ABG Total CO2 (19-24) mmol/L ABG O2 Saturation (94-97) % Chloride (98-107) mmol/L BUN (9-20) mg/dL Glucose (74-99) mg/dL POC Glucose (mg/dL) 137 H 134 H 148 H (75-99) mg/dL Uric Acid (3.5-8.5) mg/dL Calcium (8.4-10.2) mg/dL Phosphorus (2.5-4.5) mg/dL Magnesium (1.6-2.3) mg/dL AST (17-59) U/L Lactate Dehydrogenase (313-618) U/L Total Protein (6.3-8.2) g/dL Albumin (3.5-5.0) g/dL Viral Test 09/03/20 09/03/20 09/03/20 Range/Units 03:02 04:01 05:13 WBC (3.8-10.6) k/uL RBC (4.30-5.90) m/uL Hgb (13.0-17.5) gm/dL Hct (39.0-53.0) % RDW (11.5-15.5) % Plt Count (150-450) k/uL Blast Cells % % Lymphocytes # (Manual) (1.0-4.8) k/uL Monocytes # (Manual) (0-1.0) k/uL Myelocytes # (Manual) (0) k/uL Blast Cells # (Man) (0) k/uL Nucleated RBCs (0-0) /100 WBC PT (9.0-12.0) sec INR (<1.2) APTT (22.0-30.0) sec ABG pH (7.35-7.45) ABG pCO2 (35-45) mmHg ABG Total CO2 (19-24) mmol/L ABG O2 Saturation (94-97) % Chloride (98-107) mmol/L BUN (9-20) mg/dL Glucose (74-99) mg/dL POC Glucose (mg/dL) 180 H 153 H 156 H (75-99) mg/dL Uric Acid (3.5-8.5) mg/dL Calcium (8.4-10.2) mg/dL Phosphorus (2.5-4.5) mg/dL Magnesium (1.6-2.3) mg/dL AST (17-59) U/L Lactate Dehydrogenase (313-618) U/L Total Protein (6.3-8.2) g/dL Albumin (3.5-5.0) g/dL Viral Test 09/03/20 09/03/20 09/03/20 Range/Units 05:15 05:15 05:15 WBC 37.1 H (3.8-10.6) k/uL RBC 2.34 L (4.30-5.90) m/uL Hgb 8.0 L (13.0-17.5) gm/dL Hct 22.9 L (39.0-53.0) % RDW 18.6 H (11.5-15.5) % Plt Count 106 L (150-450) k/uL Blast Cells % 57 H* % Lymphocytes # (Manual) 9.28 H (1.0-4.8) k/uL Monocytes # (Manual) 1.48 H (0-1.0) k/uL Myelocytes # (Manual) 1.48 H (0) k/uL Blast Cells # (Man) 21.15 H (0) k/uL Nucleated RBCs 1 H (0-0) /100 WBC PT 12.2 H (9.0-12.0) sec INR 1.2 H (<1.2) APTT (22.0-30.0) sec ABG pH (7.35-7.45) ABG pCO2 (35-45) mmHg ABG Total CO2 (19-24) mmol/L ABG O2 Saturation (94-97) % Chloride 114 H (98-107) mmol/L BUN 50 H (9-20) mg/dL Glucose 148 H (74-99) mg/dL POC Glucose (mg/dL) (75-99) mg/dL Uric Acid 2.4 L (3.5-8.5) mg/dL Calcium 7.9 L (8.4-10.2) mg/dL Phosphorus 4.6 H (2.5-4.5) mg/dL Magnesium 3.3 H (1.6-2.3) mg/dL AST 106 H (17-59) U/L Lactate Dehydrogenase 27004 H (313-618) U/L Total Protein 5.8 L (6.3-8.2) g/dL Albumin 3.1 L (3.5-5.0) g/dL Viral Test 09/03/20 09/03/20 09/03/20 Range/Units 05:18 07:12 09:15 WBC (3.8-10.6) k/uL RBC (4.30-5.90) m/uL Hgb (13.0-17.5) gm/dL Hct (39.0-53.0) % RDW (11.5-15.5) % Plt Count (150-450) k/uL Blast Cells % % Lymphocytes # (Manual) (1.0-4.8) k/uL Monocytes # (Manual) (0-1.0) k/uL Myelocytes # (Manual) (0) k/uL Blast Cells # (Man) (0) k/uL Nucleated RBCs (0-0) /100 WBC PT (9.0-12.0) sec INR (<1.2) APTT (22.0-30.0) sec ABG pH 7.49 H (7.35-7.45) ABG pCO2 33 L (35-45) mmHg ABG Total CO2 26 H (19-24) mmol/L ABG O2 Saturation 98.1 H (94-97) % Chloride (98-107) mmol/L BUN (9-20) mg/dL Glucose (74-99) mg/dL POC Glucose (mg/dL) 174 H 143 H (75-99) mg/dL Uric Acid (3.5-8.5) mg/dL Calcium (8.4-10.2) mg/dL Phosphorus (2.5-4.5) mg/dL Magnesium (1.6-2.3) mg/dL AST (17-59) U/L Lactate Dehydrogenase (313-618) U/L Total Protein (6.3-8.2) g/dL Albumin (3.5-5.0) g/dL Viral Test 09/03/20 09/03/20 09/03/20 Range/Units 10:09 10:58 12:29 WBC (3.8-10.6) k/uL RBC (4.30-5.90) m/uL Hgb (13.0-17.5) gm/dL Hct (39.0-53.0) % RDW (11.5-15.5) % Plt Count (150-450) k/uL Blast Cells % % Lymphocytes # (Manual) (1.0-4.8) k/uL Monocytes # (Manual) (0-1.0) k/uL Myelocytes # (Manual) (0) k/uL Blast Cells # (Man) (0) k/uL Nucleated RBCs (0-0) /100 WBC PT (9.0-12.0) sec INR (<1.2) APTT (22.0-30.0) sec ABG pH (7.35-7.45) ABG pCO2 (35-45) mmHg ABG Total CO2 (19-24) mmol/L ABG O2 Saturation (94-97) % Chloride (98-107) mmol/L BUN (9-20) mg/dL Glucose (74-99) mg/dL POC Glucose (mg/dL) 146 H 152 H 147 H (75-99) mg/dL Uric Acid (3.5-8.5) mg/dL Calcium (8.4-10.2) mg/dL Phosphorus (2.5-4.5) mg/dL Magnesium (1.6-2.3) mg/dL AST (17-59) U/L Lactate Dehydrogenase (313-618) U/L Total Protein (6.3-8.2) g/dL Albumin (3.5-5.0) g/dL Viral Test 09/03/20 Range/Units 13:02 WBC (3.8-10.6) k/uL RBC (4.30-5.90) m/uL Hgb (13.0-17.5) gm/dL Hct (39.0-53.0) % RDW (11.5-15.5) % Plt Count (150-450) k/uL Blast Cells % % Lymphocytes # (Manual) (1.0-4.8) k/uL Monocytes # (Manual) (0-1.0) k/uL Myelocytes # (Manual) (0) k/uL Blast Cells # (Man) (0) k/uL Nucleated RBCs (0-0) /100 WBC PT (9.0-12.0) sec INR (<1.2) APTT (22.0-30.0) sec ABG pH (7.35-7.45) ABG pCO2 (35-45) mmHg ABG Total CO2 (19-24) mmol/L ABG O2 Saturation (94-97) % Chloride (98-107) mmol/L BUN (9-20) mg/dL Glucose (74-99) mg/dL POC Glucose (mg/dL) 145 H (75-99) mg/dL Uric Acid (3.5-8.5) mg/dL Calcium (8.4-10.2) mg/dL Phosphorus (2.5-4.5) mg/dL Magnesium (1.6-2.3) mg/dL AST (17-59) U/L Lactate Dehydrogenase (313-618) U/L Total Protein (6.3-8.2) g/dL Albumin (3.5-5.0) g/dL Viral Test Microbiology - Last 24 Hours (Table) 08/31/20 10:30 Bronchial Washings Culture - Final Bronchial Washings - Random Assessment and Plan Plan: 1 acute hypoxic respiratory failure, with development of diffuse bilateral pulmonary infiltrates, possibly related to acute lung injury from various insult related to acute promyelocytic leukemia treatment. The patient got i ntubated on 08/30/2020 and the patient is currently on a mechanical ventilator. Chest x-ray still showing diffuse but the pulmonary infiltrates. Bronchoscopy was done and the bronchioloalveolar lavage of the right middle lobe was collected. The cultures are all negative and the patient is still on IV Zosyn. The patient however has shown some improvement in the oxygenation. Not ready for any weaning yet as the patient is an acute leukemic crisis, hemodynamically unstable, still atrial fibrillation with rapid ventricular response which has been very difficult to control. 2 chronic atrial fibrillation with persistent tachycardia despite ongoing management with a combination of amiodarone, Cardizem, metoprolol and digoxin. The patient remains tachycardic and requiring norepinephrine infusion for blood pressure control and blood pressure support. 3 leukopenia from which the patient recovered. White cell count is up to 37, with essentially 57% blasts, high level of blasts, in addition to anemia and thrombocytopenia. 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 13 obstructive sleep apnea, history of Plan Continue ventilator support , Not ready for any further weaning Continue the pressors for hemodynamic support Rate control in terms of his atrial fibrillation Discussed the case with oncology. Unfortunately the patient remains in acute leukemic crisis. 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 Consider possibility of systemic chemotherapy with cytarabine. Continue IV Zosyn as empiric antibiotic coverage Continue enteral feeding for nutritional support Insulin drip for blood sugar control Monitor labs for any possibility of a tumor lysis syndrome Prognosis extremely poor baseline above-mentioned comorbidities Monitor electrolytes critical condition will continue to follow make further recommendations based on the progress. This evaluation was done and morning 30 minutes. Time with Patient: Greater than 30
[2020-09-03 14:59] LABS: Glucose,Whole Blood 146 mg/dL (75-99)
[2020-09-03] MEDS: NOREPINEPHRINE 32 MG in SODIUM CHLORIDE 0.9% 218 ML IV SCH (15:00)
--- NOTE | 2020-09-03 15:02 | P.PN ---
Subjective Progress Note Date: 09/03/20 Principal diagnosis: APL - Acute Hypoxic respiratory failure Patient has persistent blasts, remains on ventilator. Apparently has not been able to receive cytoreductive medications (hydroxyurea) ordered, was notified today by pharmacy. The patient will need cytoreduction most likely to improve and be able to move forward with his mainstream treatment plan for his treatable condition. Therefore we will initiate cytarabine 100mg/m2, I have discussed in detail with Oncology RNs at office and RNs on the 6th floor to anticipate they will be able to administer chemotherapy this evening and the next 2 (total 3). Dr. Anderson seen and examined patient earlier today. Case was discussed with Dr. Schaeffer. Objective - Vital Signs Vital signs: Vital Signs Temp 100.8 F H 09/03/20 12:00 Pulse 131 H 09/03/20 14:00 Resp 24 09/03/20 14:00 BP 95/76 09/03/20 14:00 Pulse Ox 98 09/03/20 14:00 Intake & Output 09/02/20 09/03/20 09/03/20 18:59 06:59 18:59 Intake Total 8380.069 0750.584 963.614 Output Total 2004 1075 530 Balance -519.141 238.584 433.614 Weight 101.6 kg 101.6 kg Intake: IV 412 359 316 0.9 240 270 80 Normal Saline Pressure 72 39 36 Bag Piperacillin-Tazobactam 3 100 50 200 .375 gm In Sodium Chloride 0.9% 100 ml @ 25 mls/hr IVPB Q12HR [facility] Rx #:[id number] Intake, IV Titration 635.859 545.584 391.614 Amount Diltiazem 125 mg In 229.75 125 112 Sodium Chloride 0.9% 100 ml @ 15 MG/HR 15 mls/hr IV .Q8H20M [facility] Rx#: [id number] Insulin Regular 100 unit 202.000 101.000 101.000 In Sodium Chloride 0.9% 100 ml @ Per Protocol IV .Q0M [facility] Rx#:[id number] Norepinephrine 32 mg In 12.368 21.235 Sodium Chloride 0.9% 218 ml @ 0.06 MCG/KG/MIN 2. 776 mls/hr IV .Q24H [facility] Rx#:[id number] propofoL 1,000 mg In 191.741 298.349 178.614 Empty Bag 1 bag @ Titrate IV .Q0M [facility] Rx#: [id number] Tube Feeding 348 319 196 Other 90 90 60 Output: Urine 2004 1075 530 Other: Voiding Method Indwelling Catheter Indwelling Catheter Indwelling Catheter ABP, PAP, CO, CI - Last Documented Arterial Blood Pressure 98/51 - Exam - Constitutional Constitutional Comment(s): Ventilator - EENT Eyes: Present: EOMI ENT:ET tube - Respiratory Respiratory: bilateral: rales, rhonchi - Cardiovascular Rhythm: irregularly irregular Heart sounds: normal: S1, S2 - Gastrointestinal General gastrointestinal: Present: distended, normal bowel sounds, soft - Integumentary Integumentary: Present: normal - Neurologic Neurologic:KARSTEN - Musculoskeletal Musculoskeletal:Atrophy noted to muscles, KARSTEN strength - Psychiatric Psychiatric: KARSTEN - Labs CBC & Chem 7: 09/03/20 05:15 09/03/20 05:15 Labs: Abnormal Lab Results - Last 24 Hours (Table) 08/31/20 09/02/20 09/02/20 Range/Units 10:30 14:59 16:09 WBC (3.8-10.6) k/uL RBC (4.30-5.90) m/uL Hgb (13.0-17.5) gm/dL Hct (39.0-53.0) % RDW (11.5-15.5) % Plt Count (150-450) k/uL Blast Cells % % Lymphocytes # (Manual) (1.0-4.8) k/uL Monocytes # (Manual) (0-1.0) k/uL Myelocytes # (Manual) (0) k/uL Blast Cells # (Man) (0) k/uL Nucleated RBCs (0-0) /100 WBC PT (9.0-12.0) sec INR (<1.2) APTT (22.0-30.0) sec ABG pH (7.35-7.45) ABG pCO2 (35-45) mmHg ABG Total CO2 (19-24) mmol/L ABG O2 Saturation (94-97) % Chloride (98-107) mmol/L BUN (9-20) mg/dL Glucose (74-99) mg/dL POC Glucose (mg/dL) 129 H 128 H (75-99) mg/dL Uric Acid (3.5-8.5) mg/dL Calcium (8.4-10.2) mg/dL Phosphorus (2.5-4.5) mg/dL Magnesium (1.6-2.3) mg/dL AST (17-59) U/L Lactate Dehydrogenase (313-618) U/L Total Protein (6.3-8.2) g/dL Albumin (3.5-5.0) g/dL Viral Test See Below H 09/02/20 09/02/20 09/02/20 Range/Units 17:56 20:11 21:04 WBC (3.8-10.6) k/uL RBC (4.30-5.90) m/uL Hgb (13.0-17.5) gm/dL Hct (39.0-53.0) % RDW (11.5-15.5) % Plt Count (150-450) k/uL Blast Cells % % Lymphocytes # (Manual) (1.0-4.8) k/uL Monocytes # (Manual) (0-1.0) k/uL Myelocytes # (Manual) (0) k/uL Blast Cells # (Man) (0) k/uL Nucleated RBCs (0-0) /100 WBC PT (9.0-12.0) sec INR (<1.2) APTT (22.0-30.0) sec ABG pH (7.35-7.45) ABG pCO2 (35-45) mmHg ABG Total CO2 (19-24) mmol/L ABG O2 Saturation (94-97) % Chloride (98-107) mmol/L BUN (9-20) mg/dL Glucose (74-99) mg/dL POC Glucose (mg/dL) 152 H 180 H 154 H (75-99) mg/dL Uric Acid (3.5-8.5) mg/dL Calcium (8.4-10.2) mg/dL Phosphorus (2.5-4.5) mg/dL Magnesium (1.6-2.3) mg/dL AST (17-59) U/L Lactate Dehydrogenase (313-618) U/L Total Protein (6.3-8.2) g/dL Albumin (3.5-5.0) g/dL Viral Test 09/02/20 09/02/20 09/02/20 Range/Units 22:09 22:34 22:54 WBC (3.8-10.6) k/uL RBC (4.30-5.90) m/uL Hgb (13.0-17.5) gm/dL Hct (39.0-53.0) % RDW (11.5-15.5) % Plt Count (150-450) k/uL Blast Cells % % Lymphocytes # (Manual) (1.0-4.8) k/uL Monocytes # (Manual) (0-1.0) k/uL Myelocytes # (Manual) (0) k/uL Blast Cells # (Man) (0) k/uL Nucleated RBCs (0-0) /100 WBC PT (9.0-12.0) sec INR (<1.2) APTT 20.2 L (22.0-30.0) sec ABG pH (7.35-7.45) ABG pCO2 (35-45) mmHg ABG Total CO2 (19-24) mmol/L ABG O2 Saturation (94-97) % Chloride (98-107) mmol/L BUN (9-20) mg/dL Glucose (74-99) mg/dL POC Glucose (mg/dL) 154 H 153 H (75-99) mg/dL Uric Acid (3.5-8.5) mg/dL Calcium (8.4-10.2) mg/dL Phosphorus (2.5-4.5) mg/dL Magnesium (1.6-2.3) mg/dL AST (17-59) U/L Lactate Dehydrogenase (313-618) U/L Total Protein (6.3-8.2) g/dL Albumin (3.5-5.0) g/dL Viral Test 09/02/20 09/03/20 09/03/20 Range/Units 23:53 00:58 01:52 WBC (3.8-10.6) k/uL RBC (4.30-5.90) m/uL Hgb (13.0-17.5) gm/dL Hct (39.0-53.0) % RDW (11.5-15.5) % Plt Count (150-450) k/uL Blast Cells % % Lymphocytes # (Manual) (1.0-4.8) k/uL Monocytes # (Manual) (0-1.0) k/uL Myelocytes # (Manual) (0) k/uL Blast Cells # (Man) (0) k/uL Nucleated RBCs (0-0) /100 WBC PT (9.0-12.0) sec INR (<1.2) APTT (22.0-30.0) sec ABG pH (7.35-7.45) ABG pCO2 (35-45) mmHg ABG Total CO2 (19-24) mmol/L ABG O2 Saturation (94-97) % Chloride (98-107) mmol/L BUN (9-20) mg/dL Glucose (74-99) mg/dL POC Glucose (mg/dL) 137 H 134 H 148 H (75-99) mg/dL Uric Acid (3.5-8.5) mg/dL Calcium (8.4-10.2) mg/dL Phosphorus (2.5-4.5) mg/dL Magnesium (1.6-2.3) mg/dL AST (17-59) U/L Lactate Dehydrogenase (313-618) U/L Total Protein (6.3-8.2) g/dL Albumin (3.5-5.0) g/dL Viral Test 09/03/20 09/03/20 09/03/20 Range/Units 03:02 04:01 05:13 WBC (3.8-10.6) k/uL RBC (4.30-5.90) m/uL Hgb (13.0-17.5) gm/dL Hct (39.0-53.0) % RDW (11.5-15.5) % Plt Count (150-450) k/uL Blast Cells % % Lymphocytes # (Manual) (1.0-4.8) k/uL Monocytes # (Manual) (0-1.0) k/uL Myelocytes # (Manual) (0) k/uL Blast Cells # (Man) (0) k/uL Nucleated RBCs (0-0) /100 WBC PT (9.0-12.0) sec INR (<1.2) APTT (22.0-30.0) sec ABG pH (7.35-7.45) ABG pCO2 (35-45) mmHg ABG Total CO2 (19-24) mmol/L ABG O2 Saturation (94-97) % Chloride (98-107) mmol/L BUN (9-20) mg/dL Glucose (74-99) mg/dL POC Glucose (mg/dL) 180 H 153 H 156 H (75-99) mg/dL Uric Acid (3.5-8.5) mg/dL Calcium (8.4-10.2) mg/dL Phosphorus (2.5-4.5) mg/dL Magnesium (1.6-2.3) mg/dL AST (17-59) U/L Lactate Dehydrogenase (313-618) U/L Total Protein (6.3-8.2) g/dL Albumin (3.5-5.0) g/dL Viral Test 09/03/20 09/03/20 09/03/20 Range/Units 05:15 05:15 05:15 WBC 37.1 H (3.8-10.6) k/uL RBC 2.34 L (4.30-5.90) m/uL Hgb 8.0 L (13.0-17.5) gm/dL Hct 22.9 L (39.0-53.0) % RDW 18.6 H (11.5-15.5) % Plt Count 106 L (150-450) k/uL Blast Cells % 57 H* % Lymphocytes # (Manual) 9.28 H (1.0-4.8) k/uL Monocytes # (Manual) 1.48 H (0-1.0) k/uL Myelocytes # (Manual) 1.48 H (0) k/uL Blast Cells # (Man) 21.15 H (0) k/uL Nucleated RBCs 1 H (0-0) /100 WBC PT 12.2 H (9.0-12.0) sec INR 1.2 H (<1.2) APTT (22.0-30.0) sec ABG pH (7.35-7.45) ABG pCO2 (35-45) mmHg ABG Total CO2 (19-24) mmol/L ABG O2 Saturation (94-97) % Chloride 114 H (98-107) mmol/L BUN 50 H (9-20) mg/dL Glucose 148 H (74-99) mg/dL POC Glucose (mg/dL) (75-99) mg/dL Uric Acid 2.4 L (3.5-8.5) mg/dL Calcium 7.9 L (8.4-10.2) mg/dL Phosphorus 4.6 H (2.5-4.5) mg/dL Magnesium 3.3 H (1.6-2.3) mg/dL AST 106 H (17-59) U/L Lactate Dehydrogenase 14165 H (313-618) U/L Total Protein 5.8 L (6.3-8.2) g/dL Albumin 3.1 L (3.5-5.0) g/dL Viral Test 09/03/20 09/03/20 09/03/20 Range/Units 05:18 07:12 09:15 WBC (3.8-10.6) k/uL RBC (4.30-5.90) m/uL Hgb (13.0-17.5) gm/dL Hct (39.0-53.0) % RDW (11.5-15.5) % Plt Count (150-450) k/uL Blast Cells % % Lymphocytes # (Manual) (1.0-4.8) k/uL Monocytes # (Manual) (0-1.0) k/uL Myelocytes # (Manual) (0) k/uL Blast Cells # (Man) (0) k/uL Nucleated RBCs (0-0) /100 WBC PT (9.0-12.0) sec INR (<1.2) APTT (22.0-30.0) sec ABG pH 7.49 H (7.35-7.45) ABG pCO2 33 L (35-45) mmHg ABG Total CO2 26 H (19-24) mmol/L ABG O2 Saturation 98.1 H (94-97) % Chloride (98-107) mmol/L BUN (9-20) mg/dL Glucose (74-99) mg/dL POC Glucose (mg/dL) 174 H 143 H (75-99) mg/dL Uric Acid (3.5-8.5) mg/dL Calcium (8.4-10.2) mg/dL Phosphorus (2.5-4.5) mg/dL Magnesium (1.6-2.3) mg/dL AST (17-59) U/L Lactate Dehydrogenase (313-618) U/L Total Protein (6.3-8.2) g/dL Albumin (3.5-5.0) g/dL Viral Test 09/03/20 09/03/20 09/03/20 Range/Units 10:09 10:58 12:29 WBC (3.8-10.6) k/uL RBC (4.30-5.90) m/uL Hgb (13.0-17.5) gm/dL Hct (39.0-53.0) % RDW (11.5-15.5) % Plt Count (150-450) k/uL Blast Cells % % Lymphocytes # (Manual) (1.0-4.8) k/uL Monocytes # (Manual) (0-1.0) k/uL Myelocytes # (Manual) (0) k/uL Blast Cells # (Man) (0) k/uL Nucleated RBCs (0-0) /100 WBC PT (9.0-12.0) sec INR (<1.2) APTT (22.0-30.0) sec ABG pH (7.35-7.45) ABG pCO2 (35-45) mmHg ABG Total CO2 (19-24) mmol/L ABG O2 Saturation (94-97) % Chloride (98-107) mmol/L BUN (9-20) mg/dL Glucose (74-99) mg/dL POC Glucose (mg/dL) 146 H 152 H 147 H (75-99) mg/dL Uric Acid (3.5-8.5) mg/dL Calcium (8.4-10.2) mg/dL Phosphorus (2.5-4.5) mg/dL Magnesium (1.6-2.3) mg/dL AST (17-59) U/L Lactate Dehydrogenase (313-618) U/L Total Protein (6.3-8.2) g/dL Albumin (3.5-5.0) g/dL Viral Test 09/03/20 09/03/20 Range/Units 13:02 14:01 WBC (3.8-10.6) k/uL RBC (4.30-5.90) m/uL Hgb (13.0-17.5) gm/dL Hct (39.0-53.0) % RDW (11.5-15.5) % Plt Count (150-450) k/uL Blast Cells % % Lymphocytes # (Manual) (1.0-4.8) k/uL Monocytes # (Manual) (0-1.0) k/uL Myelocytes # (Manual) (0) k/uL Blast Cells # (Man) (0) k/uL Nucleated RBCs (0-0) /100 WBC PT (9.0-12.0) sec INR (<1.2) APTT (22.0-30.0) sec ABG pH (7.35-7.45) ABG pCO2 (35-45) mmHg ABG Total CO2 (19-24) mmol/L ABG O2 Saturation (94-97) % Chloride (98-107) mmol/L BUN (9-20) mg/dL Glucose (74-99) mg/dL POC Glucose (mg/dL) 145 H 150 H (75-99) mg/dL Uric Acid (3.5-8.5) mg/dL Calcium (8.4-10.2) mg/dL Phosphorus (2.5-4.5) mg/dL Magnesium (1.6-2.3) mg/dL AST (17-59) U/L Lactate Dehydrogenase (313-618) U/L Total Protein (6.3-8.2) g/dL Albumin (3.5-5.0) g/dL Viral Test Microbiology - Last 24 Hours (Table) 08/31/20 10:30 Bronchial Washings Culture - Final Bronchial Washings - Random Assessment and Plan Plan: Assessment and Recommendations: 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 Daily monitoring of bloodwork: - Coags, Fibrinogen - CBC with Diff - CMP, Mag, Phos - Uric Acid, LDH Need to keep magnesium >1.8mg/dl and K+ >4mmol/L. Status post Elitek on 08/26 and 08/30 SCDs for DVT prophylaxis Supportive medications ordered for possible side effects. 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 Unfort worsened to 56% on 09/02/20 and today 59% on 09/03/20. Unable to administer hydrea dosage through feeding tube while on ventilator therefore will order Cyatarbine 100mg/m2 iv x3 days as cytoreduction treatment. 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 Hoping to restart 24- 48 hour, continue Hydrea in the interim. 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 - Continue on Steroids/PPI Plan/UPdate 09/03/20: - Unable to administer hydrea dosage through feeding tube while on ventilator therefore will order Cyatarbine 100mg/m2 iv x3 days as cytoreduction treatment. - When improven will restart APL treatment with arsenic and atra at day 4 - COntinue to monitor daily Coags, TLS labs, CBC with differential daily Physician Attest: I have completed the full history and physical and developed the full impression and plan, agree with above dictation, dictated as a scribe.
--- NOTE | 2020-09-03 15:38 | P.PN ---
Progress Note - Text Progress Note Date: 09/03/20 Presenting complaint: Tired Interval history: This is a patient who was recently diagnosed with promyelocytic leukemia. On chemotherapy. Went to CHF and atrial fibrillation with rapid ventricular rate. Transferred to telemetry floor. 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 started on IV dexamethasone. Put on a Cardizem drip. Requiring high flow oxygen. Given IV Lasix. On August [address] on BiPAP, transferred to ICU. Intubated Patient also to acute kidney injury. Also went into atrial flutter with rapid ventricular rate. Put on IV Cardizem drip. [id number] on the ventilator. FiO2 50 and a PEEP of 5. Heart rate remains high. Drips include insulin, Cardizem, levo fed, propofol. Sedated. OG tube in place. Digoxin increased by cardiology. Hydroxyurea could not be given through the OG tube. Review of systems: Patient intubated Active Medications Hydrocodone Bitart/Acetaminophen (Hydrocodone/Apap 10-325mg 1 Each Tab) 1 each PO QID PRN PRN Reason: Pain Last Admin: 09/03/20 12:38 Dose: 1 each Documented by: Al Hydroxide/Mg Hydroxide (Mag Hydrox/Al Hydrox/Simeth 30 Ml Cup) 30 ml PO Q4HR PRN PRN Reason: GI Upset Last Admin: 08/29/20 02:27 Dose: 30 ml Documented by: Amiodarone HCl (Amiodarone 200 Mg Tab) 400 mg PO BID [facility] Last Admin: 09/03/20 08:40 Dose: 400 mg Documented by: Atorvastatin Calcium (Atorvastatin 10 Mg Tab) 10 mg PO HS [facility] Last Admin: 09/02/20 20:43 Dose: 10 mg Documented by: Chlorhexidine Gluconate (Chlorhexidine Gluconate 15 Ml Cup) 15 ml MUCOUS MEM BID [facility] Last Admin: 09/03/20 08:40 Dose: 15 ml Documented by: Dexamethasone Sodium Phosphate (Dexamethasone Sod Phosphate 4 Mg/Ml 1 Ml Vial) 5 mg IV Q6HR [facility] Last Admin: 09/03/20 12:38 Dose: 5 mg Documented by: Digoxin (Digoxin 250 Mcg Tab) 250 mcg PO DAILY [facility] Last Admin: 09/03/20 08:41 Dose: 250 mcg Documented by: Furosemide (Furosemide 10 Mg/Ml 4 Ml Vial) 40 mg IV DAILY [facility] Last Admin: 09/03/20 08:40 Dose: 40 mg Documented by: Gabapentin (Gabapentin 100 Mg Cap) 100 mg PO TID [facility] Last Admin: 09/03/20 15:02 Dose: 100 mg Documented by: Diltiazem HCl 125 mg/ Sodium (Chloride) 125 mls @ 15 mls/hr IV .Q8H20M [facility] Last Admin: 09/03/20 10:15 Dose: 15 mg/hr, 15 mls/hr Documented by: Propofol 1,000 mg/ IV Solution 100 mls @ 0 mls/hr IV .Q0M [facility]; Protocol Last Admin: 09/03/20 15:00 Dose: 60 mcg/kg/min, 36.576 mls/hr Documented by: Insulin Human Regular 100 unit (/ Sodium Chloride) 101 mls @ 0 mls/hr IV .Q0M [facility]; Protocol Last Admin: 09/03/20 12:30 Dose: 11 units/hr, 11.11 mls/hr Documented by: Norepinephrine Bitartrate 32 (mg/ Sodium Chloride) 250 mls @ 2.776 mls/hr IV .Q24H [facility]; Protocol Last Admin: 09/03/20 15:00 Dose: 0.03 mcg/kg/min, 1.388 mls/hr Documented by: Piperacillin Sod/Tazobactam (Sod 3.375 gm/ Sodium Chloride) 100 mls @ 25 mls/hr IVPB Q8HR [facility] Last Admin: 09/03/20 15:01 Dose: 25 mls/hr Documented by: Insulin Human Regular (Insulin Regular Bolus (From Drip Bag)) 9.9 unit 0.1 unit/kg (9.9 unit) IV ONCE PRN PRN Reason: Blood Sugar - High Stop: 09/30/20 21:00 Magnesium Oxide (Magnesium Oxide 400 Mg Tab) 400 mg PO DAILY [facility] Last Admin: 09/03/20 08:41 Dose: 400 mg Documented by: Metoprolol Tartrate (Metoprolol Tartrate 50 Mg Tab) 100 mg PO TID [facility] Last Admin: 09/03/20 15:01 Dose: 100 mg Documented by: Miscellaneous Information (Potassium Replacement Protocol 1 Each Misc) 1 each MISCELLANE DAILY PRN; Protocol PRN Reason: Per Protocol Miscellaneous Information (Magnesium Replacement Protocol 1 Each Misc) 1 each MISCELLANE DAILY PRN; Protocol PRN Reason: Per Protocol Pantoprazole Sodium (Pantoprazole 40 Mg/10 Ml Vial) 40 mg IVP BID [facility] Last Admin: 09/03/20 08:40 Dose: 40 mg Documented by: Potassium Chloride (Potassium Chloride Er 20 Meq Tab.Er) 20 meq PO BID [facility] Last Admin: 09/03/20 08:41 Dose: 20 meq Documented by: Senna (Sennosides 8.6 Mg Tab) 8.6 mg PO DAILY [facility] Tamsulosin HCl (Tamsulosin 0.4 Mg Cap.Er.24h) 0.4 mg PO BID [facility] Last Admin: 09/03/20 08:40 Dose: 0.4 mg Documented by: On examination: VITAL SIGNS: 100.8, 154, 22, 94/49, 98% on the ventilator GENERAL APPEARANCE: Laying in bed, intubated HEENT: Endotracheal tube, OG tube EYES: Pupils equal. Conjunctiva normal. NECK: JVD unable to assess. Mass not palpable. RESPIRATORY: Respiratory effort increased. , decreased breath sounds. CARDIOVASCULAR: Heart sounds irregular, no edema ABDOMEN: Soft. Liver and spleen not palpable. No tenderness. No mass palpable. PSYCHIATRY: Sedated INVESTIGATIONS, reviewed in the clinical context: White count 37.1 hemoglobin 8 platelets 106 last cells 57% potassium 5 bun 50 creatinine 1.0 uric acid 2.4 phosphorus 4.6 LDH 55043 albumin 3.1 Previous testing White count 1.5 hemoglobin 8.3 platelets 52 blast cells 30% Potassium 3.8 creatinine 1.24 blood glucose 276 lactic acid 3.5 uric acid 1.3 Chest x-ray film personally reviewed by me-pulmonary edema 2-D echocardiogram from last month showed EF 60-65% Assessment: -Persistent atrial flutter-fibrillation with a rapid ventricular rate, remains uncontrolled -Acute congestive heart failure exacerbation from diastolic dysfunction EF 60- 65%, precipitated by atrial flutter fibrillation with a rapid ventricular rate- improved -Acute hypoxic respiratory failure requiring ventilator support.-Slow to respond -Questionable pneumonia. Though infiltrates could be from leukocytes from the differential syndrome. - Differential syndrome with treatment of APL with arsenic worsening blast cells -Hypotensive shock-requiring pressor support-uncontrolled -Diabetes mellitus type 2, uncontrolled with hyperglycemia secondary to steroids -Essential hypertension, history of -Hyperlipidemia -Primary osteoarthritis -Obstructive sleep apnea uses CPAP -Childhood polio -Obstructive sleep apnea uses CPAP -Primary osteoarthritis -Promyelocytic leukemia-started on induction treatment with arsenic trioxide and Atra -Acute kidney injury,-improved Plan: Patient currently and IV Cardizem drip, hydroxyurea, insulin drip, Lopressor, levo fed drip, IV Zosyn, propofol, . Patient also on oral amiodarone. Dose of digoxin increased. Spoke to Dr. Anderson briefly from oncology. Planning to give chemotherapy. Patient remains on IV dexamethasone. Prognosis guarded.
[2020-09-03 16:58] LABS: Glucose,Whole Blood 152 mg/dL (75-99)
[2020-09-03 19:04] LABS: Glucose,Whole Blood 170 mg/dL (75-99)
[2020-09-03] MEDS: FAMOTIDINE 20 MG/2 ML VIAL IV SCH (19:36)
[2020-09-03] MEDS: ONDANSETRON 16 MG in SODIUM CHLORIDE 0.9% 50 ML IVPB SCH (19:37)
[2020-09-03] MEDS: ACETAMINOPHEN TAB 500 MG TAB PO PRN (20:12)
[2020-09-03] MEDS: ATORVASTATIN 10 MG TAB PO SCH (20:12)
[2020-09-03] MEDS: SENNOSIDES 8.6 MG TAB PO SCH (20:13)
[2020-09-03] MEDS: CYTARABINE IV SCH (20:26)
[2020-09-03] MEDS: SODIUM CHLORIDE 0.9% IV SCH (20:26)
[2020-09-03 21:05] LABS: Glucose,Whole Blood 166 mg/dL (75-99)
[2020-09-03 22:04] LABS: Glucose,Whole Blood 149 mg/dL (75-99)
[2020-09-03] MEDS: SODIUM CHLORIDE 0.9% 1,000 ML IV SCH (22:10)
[2020-09-03 23:54] LABS: Glucose,Whole Blood 157 mg/dL (75-99)
[2020-09-04 02:04] LABS: Glucose,Whole Blood 138 mg/dL (75-99)
[2020-09-04] MEDS: DILTIAZEM 125 MG in SODIUM CHLORIDE 0.9% 100 ML IV SCH ×3 (02:10→19:00)
[2020-09-04 03:23] LABS: Glucose,Whole Blood 207 mg/dL (75-99)
[2020-09-04 04:11] LABS: Glucose,Whole Blood 206 mg/dL (75-99)
[2020-09-04 05:14] LABS: ABG Base Excess -0.1 mmol/L; ABG HCO3 24 mmol/L (21-25); ABG Oxygen Saturation 96.9 % (94-97); ABG PCO2 35 mmHg (35-45); ABG PH 7.45 (7.35-7.45); ABG PO2 83 mmHg (83-108); ABG TCO2 25 mmol/L (19-24); Allen Test Performed? Yes; Glucose,Whole Blood 191 mg/dL (75-99)
[2020-09-04 05:23] LABS: Anisocytosis Slight; HCT 20.2 % (39.0-53.0); HGB 7.4 gm/dL (13.0-17.5); Hypochromasia Slight; MCH 36.1 pg (25.0-35.0); MCHC 36.5 g/dL (31.0-37.0); MCV 98.9 fL (80.0-100.0); Macrocytosis Slight; Mean Platelet Volume 9.9; Poikilocytosis Slight; RBC 2.04 m/uL (4.30-5.90); RDW 18.6 % (11.5-15.5)
[2020-09-04 05:33] LABS: ALT 17 U/L (4-49); AST 73 U/L (17-59); African American GFR (CKD) >90 (>60 ml/min/1.73 sqM); Albumin 2.7 g/dL (3.5-5.0); Alkaline Phosphatase 47 U/L (38-126); Anion Gap 2 mmol/L; Blood Urea Nitrogen 47 mg/dL (9-20); Calcium 7.3 mg/dL (8.4-10.2); Carbon Dioxide 25 mmol/L (22-30); Chloride 118 mmol/L (98-107); Glucose 181 mg/dL (74-99); Non-African American GFR(CKD) 79 (>60 ml/min/1.73 sqM); Phosphorus 4.6 mg/dL (2.5-4.5); Potassium 4.6 mmol/L (3.5-5.1); Sodium 145 mmol/L (137-145); Total Bilirubin 0.9 mg/dL (0.2-1.3); Total Protein 5.3 g/dL (6.3-8.2); Uric Acid 2.6 mg/dL (3.5-8.5)
[2020-09-04 05:58] LABS: Glucose,Whole Blood 196 mg/dL (75-99)
[2020-09-04] MEDS: DEXAMETHASONE SOD PHOSPHATE 4 MG/ML 1 ML VIAL IV SCH ×4 (05:59→23:38)
[2020-09-04] MEDS: INSULIN REGULAR 100 UNIT in SODIUM CHLORIDE 0.9% 100 ML IV SCH ×2 (06:05→14:30)
[2020-09-04 06:19] LABS: Myelocytes % 16 %; Neutrophils % (M) 20 %
[2020-09-04 06:20] LABS: Blast Cells # (M) 16.97 k/uL (0); Lymphocytes # (M) 5.17 k/uL (1.0-4.8); Monocytes # (M) 1.48 k/uL (0-1.0); Neutrophils # (M) 7.38 k/uL (1.3-7.7); Nucleated Red Blood Cells 2 /100 WBC (0-0); Total Cells Counted 200; WBC 36.9 k/uL (3.8-10.6)
[2020-09-04 06:21] LABS: Platelet Count 76 k/uL (150-450)
[2020-09-04 06:30] LABS: LDH 10336 U/L (313-618)
[2020-09-04 06:42] LABS: INR 1.2 (<1.2); Prothrombin Time 12.1 sec (9.0-12.0)
[2020-09-04 06:43] LABS: Partial Thromboplastin Time 20.7 sec (22.0-30.0)
[2020-09-04 07:06] LABS: Glucose,Whole Blood 167 mg/dL (75-99)
--- NOTE | 2020-09-04 07:07 | XR ---
EXAMINATION TYPE: XR chest 1V portable DATE OF EXAM: 09/04/2020 CLINICAL HISTORY: Difficulty breathing progress study. TECHNIQUE: Single AP portable semiupright view of the chest is obtained. COMPARISON: Chest x-ray from one day earlier and older studies. FINDINGS: Stable endotracheal tube, orogastric tube, and left internal jugular central venous cathet er. Persistent faint right infrahilar area and more prominent left basilar opacities. No new pleural effu casi or pneumothorax seen bilaterally. Cardiac silhouette size stable and upper limits of normal with atherosclerotic and ectatic aortic knob. Multilevel spurring the lower thoracic spine redemonstrated . IMPRESSION: Faint right infrahilar and more prominent left basilar acute infiltrate and/or atelectasi s remain present. No new infiltrates seen. No significant change from one day earlier.
[2020-09-04 08:02] LABS: Glucose,Whole Blood 174 mg/dL (75-99)
[2020-09-04] MEDS: MAGNESIUM OXIDE 400 MG TAB PO SCH (08:28)
[2020-09-04] MEDS: POTASSIUM CHLORIDE ER 20 MEQ TAB.ER PO SCH ×2 (08:28→20:12)
[2020-09-04] MEDS: PIPERACILLIN-TAZOBACTAM 3.375 GM in SODIUM CHLORIDE 0.9% 100 ML IVPB SCH ×3 (08:58→23:38)
[2020-09-04] MEDS: CHLORHEXIDINE GLUCONATE 15 ML CUP MUCOUS MEM SCH ×2 (09:04→20:11)
[2020-09-04] MEDS: PANTOPRAZOLE 40 MG/10 ML VIAL IVP SCH ×2 (09:04→20:12)
[2020-09-04] MEDS: AMIODARONE 200 MG TAB PO SCH ×2 (09:05→20:11)
[2020-09-04] MEDS: FUROSEMIDE 10 MG/ML 4 ML VIAL IV SCH (09:06)
[2020-09-04] MEDS: METOPROLOL TARTRATE 50 MG TAB PO SCH ×3 (09:06→20:11)
[2020-09-04] MEDS: SENNOSIDES 8.6 MG TAB PO SCH (09:06)
[2020-09-04] MEDS: GABAPENTIN 100 MG CAP PO SCH ×3 (09:06→20:11)
[2020-09-04] MEDS: ACETAMINOPHEN TAB 500 MG TAB PO PRN ×3 (09:06→21:54)
[2020-09-04] MEDS: TAMSULOSIN 0.4 MG CAP.ER.24H PO SCH ×2 (09:06→20:11)
[2020-09-04] MEDS: DIGOXIN 250 MCG TAB PO SCH (09:06)
[2020-09-04] MEDS: SODIUM CHLORIDE 0.9% 1,000 ML IV SCH (09:10)
[2020-09-04 09:35] LABS: Glucose,Whole Blood 150 mg/dL (75-99)
[2020-09-04 10:02] LABS: Glucose,Whole Blood 136 mg/dL (75-99)
--- NOTE | 2020-09-04 10:53 | P.PN ---
Subjective This is a pleasant 75-year-old male currently undergoing chemotherapy. He is in the intensive care unit currently intubated on levophed. He continues to be atrial flutter with rapid rates. Currently up around 160 despite being on max does of lopressor, cardizem, digoxin and amiodarone. Continues to be on Levaquin. Blood pressure 119/61 heart rate 109 temperature 100.6F. Maintaining oxygen saturation on mechanical ventilation. He appears more comfortable today. Oncology has resumed chemotherapy continuously. Laboratory data reviewed, WBC 36.9, hemoglobin 7.4, platelets 76, blast cell percentage 46, INR 1.2, sodium 145, potassium 4.6 and creatinine 0.95. This morning's x-ray reveals faint right infrahilar and left basilar infiltrate remain present with no new infiltrates seen. No change from previous study. GENERAL: No acute distress. NECK: Supple without JVD or thyromegaly. LUNGS: Bibasilar rales, no wheezes or rhonchi Respiration equal and unlabored. Diminished. HEART: Irregular rate and rhythm with systolic ejection murmur at the base, no rubs or gallops. S1 and S2 heard. EXTREMITIES: Normal range of motion, bilateral lower extremity trace pitting edema. No clubbing or cyanosis. Peripheral pulses intact. ASSESSMENT Paroxysmal atrial fibrillation with rapid ventricular response. Status post cardioversion 2017 Acute on chronic diastolic heart failure Acute systolic heart failure Aortic stenosis Hypertension Dyslipidemia Diabetes mellitus PLAN Continue current medical regimen. No further recommendations at this point. He is on maximum medical therapy. Likely his rates will improve as his chemotherapy progresses Prognosis guarded, further recommendations to follow. Nurse Practitioner note has been reviewed, I agree with a documented findings and plan of care. Patient was seen and examined. Objective - Vital Signs Vital signs: Vital Signs Temp 100.6 F H 09/04/20 08:00 Pulse 109 H 09/04/20 10:00 Resp 19 09/04/20 10:00 BP 91/55 09/03/20 22:30 Pulse Ox 98 09/04/20 10:00 Intake & Output 09/03/20 09/04/20 09/04/20 18:59 06:59 18:59 Intake Total 6329.791 4609.576 786.665 Output Total 930 1300 675 Balance 582.931 491.576 111.665 Weight 101.6 kg 100.1 kg Intake: IV 470 879 241 0.9 110 840 120 Normal Saline Pressure 60 39 21 Bag Piperacillin-Tazobactam 3 300 100 .375 gm In Sodium Chloride 0.9% 100 ml @ 25 mls/hr IVPB Q12HR ANA Rx #:[id number] Intake, IV Titration 696.931 612.576 375.665 Amount Diltiazem 125 mg In 211.25 125 125 Sodium Chloride 0.9% 100 ml @ 15 MG/HR 15 mls/hr IV .Q8H20M ANA Rx#: [id number] Insulin Regular 100 unit 101.000 184.442 57.772 In Sodium Chloride 0.9% 100 ml @ Per Protocol IV .Q0M ANA Rx#:[id number] Norepinephrine 32 mg In 15.846 15.546 Sodium Chloride 0.9% 218 ml @ 0.06 MCG/KG/MIN 2. 776 mls/hr IV .Q24H ANA Rx#:[id number] propofoL 1,000 mg In 368.835 287.588 192.893 Empty Bag 1 bag @ Titrate IV .Q0M ANA Rx#: [id number] Oral 60 Tube Feeding 256 240 80 Other 90 60 30 Output: Urine 930 1300 675 Other: Voiding Method Indwelling Catheter Indwelling Catheter ABP, PAP, CO, CI - Last Documented Arterial Blood Pressure 119/61 - Labs CBC & Chem 7: 09/04/20 05:00 09/04/20 05:00 Labs: Abnormal Lab Results - Last 24 Hours (Table) 09/03/20 09/03/20 09/03/20 Range/Units 10:58 12:29 13:02 WBC (3.8-10.6) k/uL RBC (4.30-5.90) m/uL Hgb (13.0-17.5) gm/dL Hct (39.0-53.0) % MCH (25.0-35.0) pg RDW (11.5-15.5) % Plt Count (150-450) k/uL Blast Cells % % Lymphocytes # (Manual) (1.0-4.8) k/uL Monocytes # (Manual) (0-1.0) k/uL Myelocytes # (Manual) (0) k/uL Blast Cells # (Man) (0) k/uL Nucleated RBCs (0-0) /100 WBC PT (9.0-12.0) sec INR (<1.2) APTT (22.0-30.0) sec ABG Total CO2 (19-24) mmol/L Chloride (98-107) mmol/L BUN (9-20) mg/dL Glucose (74-99) mg/dL POC Glucose (mg/dL) 152 H 147 H 145 H (75-99) mg/dL Uric Acid (3.5-8.5) mg/dL Calcium (8.4-10.2) mg/dL Phosphorus (2.5-4.5) mg/dL Magnesium (1.6-2.3) mg/dL AST (17-59) U/L Lactate Dehydrogenase (313-618) U/L Total Protein (6.3-8.2) g/dL Albumin (3.5-5.0) g/dL 09/03/20 09/03/20 09/03/20 Range/Units 14:01 14:58 16:56 WBC (3.8-10.6) k/uL RBC (4.30-5.90) m/uL Hgb (13.0-17.5) gm/dL Hct (39.0-53.0) % MCH (25.0-35.0) pg RDW (11.5-15.5) % Plt Count (150-450) k/uL Blast Cells % % Lymphocytes # (Manual) (1.0-4.8) k/uL Monocytes # (Manual) (0-1.0) k/uL Myelocytes # (Manual) (0) k/uL Blast Cells # (Man) (0) k/uL Nucleated RBCs (0-0) /100 WBC PT (9.0-12.0) sec INR (<1.2) APTT (22.0-30.0) sec ABG Total CO2 (19-24) mmol/L Chloride (98-107) mmol/L BUN (9-20) mg/dL Glucose (74-99) mg/dL POC Glucose (mg/dL) 150 H 146 H 152 H (75-99) mg/dL Uric Acid (3.5-8.5) mg/dL Calcium (8.4-10.2) mg/dL Phosphorus (2.5-4.5) mg/dL Magnesium (1.6-2.3) mg/dL AST (17-59) U/L Lactate Dehydrogenase (313-618) U/L Total Protein (6.3-8.2) g/dL Albumin (3.5-5.0) g/dL 09/03/20 09/03/20 09/03/20 Range/Units 19:03 21:04 22:03 WBC (3.8-10.6) k/uL RBC (4.30-5.90) m/uL Hgb (13.0-17.5) gm/dL Hct (39.0-53.0) % MCH (25.0-35.0) pg RDW (11.5-15.5) % Plt Count (150-450) k/uL Blast Cells % % Lymphocytes # (Manual) (1.0-4.8) k/uL Monocytes # (Manual) (0-1.0) k/uL Myelocytes # (Manual) (0) k/uL Blast Cells # (Man) (0) k/uL Nucleated RBCs (0-0) /100 WBC PT (9.0-12.0) sec INR (<1.2) APTT (22.0-30.0) sec ABG Total CO2 (19-24) mmol/L Chloride (98-107) mmol/L BUN (9-20) mg/dL Glucose (74-99) mg/dL POC Glucose (mg/dL) 170 H 166 H 149 H (75-99) mg/dL Uric Acid (3.5-8.5) mg/dL Calcium (8.4-10.2) mg/dL Phosphorus (2.5-4.5) mg/dL Magnesium (1.6-2.3) mg/dL AST (17-59) U/L Lactate Dehydrogenase (313-618) U/L Total Protein (6.3-8.2) g/dL Albumin (3.5-5.0) g/dL 09/03/20 09/04/20 09/04/20 Range/Units 23:53 02:02 03:22 WBC (3.8-10.6) k/uL RBC (4.30-5.90) m/uL Hgb (13.0-17.5) gm/dL Hct (39.0-53.0) % MCH (25.0-35.0) pg RDW (11.5-15.5) % Plt Count (150-450) k/uL Blast Cells % % Lymphocytes # (Manual) (1.0-4.8) k/uL Monocytes # (Manual) (0-1.0) k/uL Myelocytes # (Manual) (0) k/uL Blast Cells # (Man) (0) k/uL Nucleated RBCs (0-0) /100 WBC PT (9.0-12.0) sec INR (<1.2) APTT (22.0-30.0) sec ABG Total CO2 (19-24) mmol/L Chloride (98-107) mmol/L BUN (9-20) mg/dL Glucose (74-99) mg/dL POC Glucose (mg/dL) 157 H 138 H 207 H (75-99) mg/dL Uric Acid (3.5-8.5) mg/dL Calcium (8.4-10.2) mg/dL Phosphorus (2.5-4.5) mg/dL Magnesium (1.6-2.3) mg/dL AST (17-59) U/L Lactate Dehydrogenase (313-618) U/L Total Protein (6.3-8.2) g/dL Albumin (3.5-5.0) g/dL 09/04/20 09/04/20 09/04/20 Range/Units 04:10 05:00 05:00 WBC (3.8-10.6) k/uL RBC (4.30-5.90) m/uL Hgb (13.0-17.5) gm/dL Hct (39.0-53.0) % MCH (25.0-35.0) pg RDW (11.5-15.5) % Plt Count (150-450) k/uL Blast Cells % % Lymphocytes # (Manual) (1.0-4.8) k/uL Monocytes # (Manual) (0-1.0) k/uL Myelocytes # (Manual) (0) k/uL Blast Cells # (Man) (0) k/uL Nucleated RBCs (0-0) /100 WBC PT 12.1 H (9.0-12.0) sec INR 1.2 H (<1.2) APTT 20.7 L (22.0-30.0) sec ABG Total CO2 (19-24) mmol/L Chloride 118 H (98-107) mmol/L BUN 47 H (9-20) mg/dL Glucose 181 H (74-99) mg/dL POC Glucose (mg/dL) 206 H (75-99) mg/dL Uric Acid 2.6 L (3.5-8.5) mg/dL Calcium 7.3 L (8.4-10.2) mg/dL Phosphorus 4.6 H (2.5-4.5) mg/dL Magnesium 3.0 H (1.6-2.3) mg/dL AST 73 H (17-59) U/L Lactate Dehydrogenase 28179 H (313-618) U/L Total Protein 5.3 L (6.3-8.2) g/dL Albumin 2.7 L (3.5-5.0) g/dL 09/04/20 09/04/20 09/04/20 Range/Units 05:00 05:12 05:12 WBC 36.9 H (3.8-10.6) k/uL RBC 2.04 L (4.30-5.90) m/uL Hgb 7.4 L (13.0-17.5) gm/dL Hct 20.2 L (39.0-53.0) % MCH 36.1 H (25.0-35.0) pg RDW 18.6 H (11.5-15.5) % Plt Count 76 L (150-450) k/uL Blast Cells % 46 H* % Lymphocytes # (Manual) 5.17 H (1.0-4.8) k/uL Monocytes # (Manual) 1.48 H (0-1.0) k/uL Myelocytes # (Manual) 5.90 H (0) k/uL Blast Cells # (Man) 16.97 H (0) k/uL Nucleated RBCs 2 H (0-0) /100 WBC PT (9.0-12.0) sec INR (<1.2) APTT (22.0-30.0) sec ABG Total CO2 25 H (19-24) mmol/L Chloride (98-107) mmol/L BUN (9-20) mg/dL Glucose (74-99) mg/dL POC Glucose (mg/dL) 191 H (75-99) mg/dL Uric Acid (3.5-8.5) mg/dL Calcium (8.4-10.2) mg/dL Phosphorus (2.5-4.5) mg/dL Magnesium (1.6-2.3) mg/dL AST (17-59) U/L Lactate Dehydrogenase (313-618) U/L Total Protein (6.3-8.2) g/dL Albumin (3.5-5.0) g/dL 09/04/20 09/04/20 09/04/20 Range/Units 05:56 07:04 07:55 WBC (3.8-10.6) k/uL RBC (4.30-5.90) m/uL Hgb (13.0-17.5) gm/dL Hct (39.0-53.0) % MCH (25.0-35.0) pg RDW (11.5-15.5) % Plt Count (150-450) k/uL Blast Cells % % Lymphocytes # (Manual) (1.0-4.8) k/uL Monocytes # (Manual) (0-1.0) k/uL Myelocytes # (Manual) (0) k/uL Blast Cells # (Man) (0) k/uL Nucleated RBCs (0-0) /100 WBC PT (9.0-12.0) sec INR (<1.2) APTT (22.0-30.0) sec ABG Total CO2 (19-24) mmol/L Chloride (98-107) mmol/L BUN (9-20) mg/dL Glucose (74-99) mg/dL POC Glucose (mg/dL) 196 H 167 H 174 H (75-99) mg/dL Uric Acid (3.5-8.5) mg/dL Calcium (8.4-10.2) mg/dL Phosphorus (2.5-4.5) mg/dL Magnesium (1.6-2.3) mg/dL AST (17-59) U/L Lactate Dehydrogenase (313-618) U/L Total Protein (6.3-8.2) g/dL Albumin (3.5-5.0) g/dL 09/04/20 09/04/20 Range/Units 09:33 10:01 WBC (3.8-10.6) k/uL RBC (4.30-5.90) m/uL Hgb (13.0-17.5) gm/dL Hct (39.0-53.0) % MCH (25.0-35.0) pg RDW (11.5-15.5) % Plt Count (150-450) k/uL Blast Cells % % Lymphocytes # (Manual) (1.0-4.8) k/uL Monocytes # (Manual) (0-1.0) k/uL Myelocytes # (Manual) (0) k/uL Blast Cells # (Man) (0) k/uL Nucleated RBCs (0-0) /100 WBC PT (9.0-12.0) sec INR (<1.2) APTT (22.0-30.0) sec ABG Total CO2 (19-24) mmol/L Chloride (98-107) mmol/L BUN (9-20) mg/dL Glucose (74-99) mg/dL POC Glucose (mg/dL) 150 H 136 H (75-99) mg/dL Uric Acid (3.5-8.5) mg/dL Calcium (8.4-10.2) mg/dL Phosphorus (2.5-4.5) mg/dL Magnesium (1.6-2.3) mg/dL AST (17-59) U/L Lactate Dehydrogenase (313-618) U/L Total Protein (6.3-8.2) g/dL Albumin (3.5-5.0) g/dL Microbiology - Last 24 Hours (Table) 08/31/20 10:30 Bronchial Washings Culture - Final Bronchial Washings - Random
[2020-09-04 11:07] LABS: Glucose,Whole Blood 128 mg/dL (75-99)
[2020-09-04 11:57] LABS: Glucose,Whole Blood 117 mg/dL (75-99)
[2020-09-04 13:00] LABS: Glucose,Whole Blood 207 mg/dL (75-99)
--- NOTE | 2020-09-04 13:18 | P.PN ---
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 The patient got transferred to the intensive care unit yesterday because of an acute hypoxic respiratory failu re/acute lung injury with development of bilateral pulmonary infiltrates. Note that the patient was originally hospitalized on 08/24/2024 shortness of breath and difficulty breathing. The patient is known to have chronic atrial fibrillation along with hypertension and hyperlipidemia. He was also being seen by cardiology regarding atrial fibrillation. As the patient developed breath and pulmonary infiltrates and acute hypoxic respiratory failure, the patient a chest to the intensive care unit and he was placed on a BiPAP at a pressure of 14/5 cm of water. FiO2 was as high as 90% and it was being titrated. The patient also had been placed on broad-spectrum antibiotics including IV Zosyn. He was being diuresis with IV Lasix 40 mg every 12 hours. He was on a Cardizem drip at 15 mg an hour to control atrial fibrillation. Remains on Decadron 5 mg IV every 6 hours. The chest x-ray as mentioned shows interval development of bilateral perihilar pulmonary infiltrates which are currently diffuse. The patient demonstrated gradual improvement in the white cell count from a baseline of 0.7 up to 20 and the platelet count is up to 79 with a hemoglobin of 8.0. The patient did not receive any packed RBC transfusions. The differential count shows 46% blasts. Renal function is impaired in the creatinine is 1.47 as the patient is being diuresed. Uric acid level is up to 8.9 with a calcium level of 8.3 and phosphorus level of 5.8 and LDH level was as high as 5244 indicating the possibility of a tumor lysis syndrome. Based on that, the patient was given a dose of respirator he carries yesterday and urine acid level is improved considerably. The echo from last month showed a preserved LV function with an ejection fraction of 6065%. The patient has mild MR, RV is mildly enlarged. Note that the patient over progressively more short of breath and hypoxic. At point, the patient was intubated and placed on a mechanical ventilator. I saw this patient this morning. The patient was already intubated on a mechanical ventilator on assist control mode with a rate of 24 with a tidal volume of 450 and FiO2 of 50% with a PEEP of 10. The blood gas showed a pH of 7.42 with a pC O2 of 40 and pO2 of 104. This was on FiO2 of 60%. The patient was sedated with propofol running at 75 mg per KG per minute. The patient is also on insulin at 5 units an hour for blood sugar control. The patient is on norepinephrine infusion at 0.06 units per KG per minute. Cardizem drip is running at 50 mg an hour in regards to her atrial fibrillation. The heart rate is in the order of 110-120. He is afebrile. Chest x-rays showing bilateral pulmonary infiltrates, stable compared to yesterday. immediately a bronchoscopy was done and the bronchioloalveolar lavage of the right middle lobe was collected as there was a concern of an underlying infection. The patient is currently on IV Zosyn. Lasix was discontinued. On 09/01/2020, the patient is being seen in follow-up in the intensive care unit. The patient remains intubated on a mechanical ventilator. This morning the patient is sedated with propofol at the rate of 45 g per KG per minute. The patient remains on mechanical ventilator on assist control mode at the rate of 24 with a tidal volume of 450 and FiO2 of 40% with a PEEP of 10. Blood gases from today showed a pH of 7.44 with a pCO2 of 38 and pO2 of 152. Chest x-ray still showing diffuse bilateral pulmonary infiltrates slightly improved compared to yesterday. Oxidation is also improved. Based on that, I made recommendations to gradually wean off the PEEP down to 5 cm of water. The patient unfortunately continues to be in atrial fibrillation. The patient is not adequately controlled. The patient is on a Cardizem drip at 15 mg an hour. The patient is also on amiodarone 0.5 mg an hour and the patient is also on metoprolol 100 mg by mouth 3 times a day. The patient is being supported with norepinephrine infusion for blood pressure support at the rate of 0.06 mg per KG per minute. The patient is afebrile. The patient is currently on IV Zosyn. The patient's bronchoscopy and the bronchioloalveolar lavage was done yesterday and the patient does not have any possible microbial growth for now. No fever. No chills. He is receiving daily Lasix 40 mg IV push to maintain adequate fluid balance. In terms of hematologic profile, the white cell count is up to 28 and the patient has 12% blast cells. The platelet count is at 96 with a hemoglobin of 7.3. The patient is currently on Hydrea the patient is also on Decadron. Discussed the case with oncology. We will hold off the ATRA treatment as the patient has gone into differentiation syndrome. On 09/02/2020, I'm seeing the patient for a follow-up in the intensive care unit. The patient remains intubated on a mechanical ventilator. This morning the patient remains on propofol at 50 g per KG per minute. The patient is also on a mechanical ventilator at the rate of 24 with a tidal volume of 450 and FiO2 of 40% with a PEEP of 5. Chest x-ray is showing stable bilateral pulmonary infiltrates without any major change compared to yesterday. Meanwhile the blood gases from today showed a pH of 7.47 with a pCO2 of 34 and pO2 of 110. The patient remains in atrial fibrillation on obviously it has been very difficult to control the rate. He is not a candidate for cardioversion and the patient cannot take any anticoagulants. 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 In terms of his A. fib, the patient remains on a combination of Cardizem drip, amiodarone drip in addition to beta blockers rn ccu. Digoxin was also added by cardiology. Heart rate is ranging between 110 and 130, irregular. He is afebrile. He is covered with Zosyn. The bronchoscopy and bronchial alveolar lavage done earlier yielded no microbial growth. The patient remains on Decadron. The patient remains on Hydrea. LDH is on the rise. White cell count today is at 26.4. Platelet count is at 91. The patient is 54% blasts and off and sleepy is a sign of progression of his underlying AML. The BUN is at 53 with a creatinine of 1.05. The patient was given daily Lasix and the patient's fluid balance has been +7 40 mL over the past 24 hours. The patient is on enteral feeding for nutritional support. The patient is well sedated. A sedation holiday was given today. He was taken off the propofol and subsequently became more tachycardic and restless and asynchronous with a mechanical ventilator and the procedure had to be aborted and the patient was placed back on sedation. On 09/03/2020, seeing this patient for a follow-up in the intensive care unit and the patient is doing poorly. The patient remains sedated on a mechanical ventilator. The patient is on propofol infusion running at 60 g per KG per minute. The patient is on a mechanical ventilator session the same vent setting is yesterday with a rate of 24 with a tidal volume of 450 and FiO2 of 40% with a PEEP of 5. The blood gases showed a pH of 7.49 with a pCO2 of 33 and pO2 of 94. Chest x-ray findings are essentially stable. Nevertheless, the patient continues to be in atrial fibrillation with a rapid ventricular response and has been very difficult to control his heart rate. He is currently on a combination of Cardizem drip at 15 mg an hour and addition to amiodarone drip at 0.5 mg per minute and metoprolol at a dose of 100 mg by mouth 3 times a day. He is also on digoxin 0.25 mg on a daily basis. The patient is still having A. fib RVR despite this ongoing treatment for rate control. His heart rate is ranging between 120 and 160, irregular and the patient is also requiring norepinephrine infusion for blood pressure control and the patient is currently on levo fed running at 7 g per minute. Cardiology is on the case and the patient will not be cardioverted based on our ability to provide him any anticoagulants at the time of cardioversion. Hematologically, he is still in acute leukemic crisis. The patient platelet count is at 106. The patient has a 57% blasts. LDH pulses on the rise the patient has a BUN of 50 with a creatinine of 1.0. Uric acid is up to 2.4. Bilirubin is at 0.9, AST slightly elevated at 104. The patient was given Hydrea by hematology oncology at were unable to give him because of our inability to crushed medication. He is on Decadron 5 mg every 6 hours. The patient is afebrile. The patient on IV Zosyn. The bronchioloalveolar lavage was negative. Chest x-ray findings are stable. The neck fluid balance is in order of 34 1 mL positive and the patient is receiving daily Lasix dose of 40 mg IV push. On 09/04/2020, the patient remains intubated on a mechanical ventilator. As stated earlier, the patient was started on systemic therapy with cytarabine and this was started last night. This morning, the patient assist-control mode of ventilation at the rate of 24 with a tidal volume of 500 and FiO2 of 50% and a PEEP of 5. The patient's is sedated with propofol. The patient was having bouts of fever overnight and the patient's had a T-max of 102.2. The patient was given Tylenol. Cultures were sent. Noted the bronchoscopy and the bron chioloalveolar lavage done earlier showed no evidence of any microbial growth. 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 The chest x-ray still showing some pains right infrahilar and more prominent left basilar infiltrate/atelectasis. No new infiltration seen.. The patient remains in atrial fibrillation. Heart rate is still quite tachycardic and the patient continues to be on Cardizem drip at 15mg an hour in addition to metoprolol 100 mg by mouth 3 times a day, digoxin 250 g daily basis and amiodarone that has been switched to oral at a dose of 5 mg by mouth twice a day. The patient is still requiring low-dose norepinephrine infusion for blood pressure support which is running at 0.02 mg per KG per minute. I started the patient IV fluid and the patient was going on systemic chemotherapy and currently is on normal saline at rate of 70 mL an hour. The patient is taking insulin drip at 14 units an hour. He remains on IV Zosyn. Note that the hematologic profile is still quite abnormal. The white cell count is at 66.9. The patient has 46% blasts in the peripheral smear. Platelet counts at 76. The LDH remains elevated at 10,336. Renal function is stable with a BUN of 47 with a creatinine of 0.9. Uric acid level is at 2.6. Calcium level level is at 7.3. Objective - Vital Signs Vital signs: Vital Signs Temp 100.2 F H 09/04/20 12:00 Pulse 121 H 09/04/20 12:30 Resp 16 09/04/20 12:30 BP 91/55 09/03/20 22:30 Pulse Ox 98 09/04/20 12:30 Intake & Output 09/03/20 09/04/20 09/04/20 18:59 06:59 18:59 Intake Total 9973.340 9533.576 898.665 Output Total 930 1300 1625 Balance 582.931 491.576 -726.335 Weight 101.6 kg 100.1 kg Intake: IV 470 879 283 0.9 110 840 150 Normal Saline Pressure 60 39 33 Bag Piperacillin-Tazobactam 3 300 100 .375 gm In Sodium Chloride 0.9% 100 ml @ 25 mls/hr IVPB Q12HR ANA Rx #:[id number] Intake, IV Titration 696.931 612.576 375.665 Amount Diltiazem 125 mg In 211.25 125 125 Sodium Chloride 0.9% 100 ml @ 15 MG/HR 15 mls/hr IV .Q8H20M ANA Rx#: [id number] Insulin Regular 100 unit 101.000 184.442 57.772 In Sodium Chloride 0.9% 100 ml @ Per Protocol IV .Q0M ANA Rx#:[id number] Norepinephrine 32 mg In 15.846 15.546 Sodium Chloride 0.9% 218 ml @ 0.06 MCG/KG/MIN 2. 776 mls/hr IV .Q24H ANA Rx#:[id number] propofoL 1,000 mg In 368.835 287.588 192.893 Empty Bag 1 bag @ Titrate IV .Q0M ANA Rx#: [id number] Oral 60 Tube Feeding 256 240 120 Other 90 60 60 Output: Urine 930 1300 1625 Other: Voiding Method Indwelling Catheter Indwelling Catheter Indwelling Catheter # Voids 350 ABP, PAP, CO, CI - Last Documented Arterial Blood Pressure 111/52 - Exam Gen. appearance the patient is currently sedated, comfortable intubated on a mechanical ventilator. The patient is sedated with propofol. Orogastric and orotracheal tube are both in place. Head exam was generally normal. There was no scleral icterus or corneal arcus. Mucous membranes were moist. Neck was supple and without jugular venous distension, thyromegaly, or carotid bruits. Carotids were easily palpable bilaterally. There was no adenopathy.the patient is a left IJ triple-lumen catheter in place. Cardiac exam revealed the PMI to be normally situated and sized. The rhythm was irregular consistent with atrial fibrillation with rapid ventricular response and no extrasystoles were noted during several minutes of auscultation. The first and second heart sounds were normal and physiologic splitting of the second heart sound was noted. There were no murmurs, rubs, clicks, or gallops. Lungs were clear to auscultation and percussion, and with normal diaphragmatic excursion. No wheezes or rales were noted. Abdominal exam revealed normal bowel sounds. The abdomen was soft, non-tender, and without masses, organomegaly, or appreciable enlargement of the abdominal aorta. Examination of the extremities revealed easily palpable radial, femoral and pedal pulses. There was no cyanosis, clubbing or edema. Examination of the skin revealed no evidence of significant rashes, suspicious appearing nevi or other concerning lesions. Neurologically the patient is sedated and the patient is calm and comfortable at this point in time. Was sedated on a mechanical ventilator. A sedation holiday was given to this patient yesterday and failed as the patient became quite agitated and restless. He became also hemodynamically unstable and a significant the mechanical ventilator and the procedure to be aborted. - Labs CBC & Chem 7: 09/04/20 05:00 09/04/20 05:00 Labs: Abnormal Lab Results - Last 24 Hours (Table) 09/03/20 09/03/20 09/03/20 Range/Units 13:02 14:01 14:58 WBC (3.8-10.6) k/uL RBC (4.30-5.90) m/uL Hgb (13.0-17.5) gm/dL Hct (39.0-53.0) % MCH (25.0-35.0) pg RDW (11.5-15.5) % Plt Count (150-450) k/uL Blast Cells % % Lymphocytes # (Manual) (1.0-4.8) k/uL Monocytes # (Manual) (0-1.0) k/uL Myelocytes # (Manual) (0) k/uL Blast Cells # (Man) (0) k/uL Nucleated RBCs (0-0) /100 WBC Haptoglobin (31.2-198.0) mg/dL PT (9.0-12.0) sec INR (<1.2) APTT (22.0-30.0) sec ABG Total CO2 (19-24) mmol/L Chloride (98-107) mmol/L BUN (9-20) mg/dL Glucose (74-99) mg/dL POC Glucose (mg/dL) 145 H 150 H 146 H (75-99) mg/dL Uric Acid (3.5-8.5) mg/dL Calcium (8.4-10.2) mg/dL Phosphorus (2.5-4.5) mg/dL Magnesium (1.6-2.3) mg/dL AST (17-59) U/L Lactate Dehydrogenase (313-618) U/L Total Protein (6.3-8.2) g/dL Albumin (3.5-5.0) g/dL 09/03/20 09/03/20 09/03/20 Range/Units 16:56 19:03 21:04 WBC (3.8-10.6) k/uL RBC (4.30-5.90) m/uL Hgb (13.0-17.5) gm/dL Hct (39.0-53.0) % MCH (25.0-35.0) pg RDW (11.5-15.5) % Plt Count (150-450) k/uL Blast Cells % % Lymphocytes # (Manual) (1.0-4.8) k/uL Monocytes # (Manual) (0-1.0) k/uL Myelocytes # (Manual) (0) k/uL Blast Cells # (Man) (0) k/uL Nucleated RBCs (0-0) /100 WBC Haptoglobin (31.2-198.0) mg/dL PT (9.0-12.0) sec INR (<1.2) APTT (22.0-30.0) sec ABG Total CO2 (19-24) mmol/L Chloride (98-107) mmol/L BUN (9-20) mg/dL Glucose (74-99) mg/dL POC Glucose (mg/dL) 152 H 170 H 166 H (75-99) mg/dL Uric Acid (3.5-8.5) mg/dL Calcium (8.4-10.2) mg/dL Phosphorus (2.5-4.5) mg/dL Magnesium (1.6-2.3) mg/dL AST (17-59) U/L Lactate Dehydrogenase (313-618) U/L Total Protein (6.3-8.2) g/dL Albumin (3.5-5.0) g/dL 09/03/20 09/03/20 09/04/20 Range/Units 22:03 23:53 02:02 WBC (3.8-10.6) k/uL RBC (4.30-5.90) m/uL Hgb (13.0-17.5) gm/dL Hct (39.0-53.0) % MCH (25.0-35.0) pg RDW (11.5-15.5) % Plt Count (150-450) k/uL Blast Cells % % Lymphocytes # (Manual) (1.0-4.8) k/uL Monocytes # (Manual) (0-1.0) k/uL Myelocytes # (Manual) (0) k/uL Blast Cells # (Man) (0) k/uL Nucleated RBCs (0-0) /100 WBC Haptoglobin (31.2-198.0) mg/dL PT (9.0-12.0) sec INR (<1.2) APTT (22.0-30.0) sec ABG Total CO2 (19-24) mmol/L Chloride (98-107) mmol/L BUN (9-20) mg/dL Glucose (74-99) mg/dL POC Glucose (mg/dL) 149 H 157 H 138 H (75-99) mg/dL Uric Acid (3.5-8.5) mg/dL Calcium (8.4-10.2) mg/dL Phosphorus (2.5-4.5) mg/dL Magnesium (1.6-2.3) mg/dL AST (17-59) U/L Lactate Dehydrogenase (313-618) U/L Total Protein (6.3-8.2) g/dL Albumin (3.5-5.0) g/dL 09/04/20 09/04/20 09/04/20 Range/Units 03:22 04:10 05:00 WBC (3.8-10.6) k/uL RBC (4.30-5.90) m/uL Hgb (13.0-17.5) gm/dL Hct (39.0-53.0) % MCH (25.0-35.0) pg RDW (11.5-15.5) % Plt Count (150-450) k/uL Blast Cells % % Lymphocytes # (Manual) (1.0-4.8) k/uL Monocytes # (Manual) (0-1.0) k/uL Myelocytes # (Manual) (0) k/uL Blast Cells # (Man) (0) k/uL Nucleated RBCs (0-0) /100 WBC Haptoglobin 383.0 H (31.2-198.0) mg/dL PT (9.0-12.0) sec INR (<1.2) APTT (22.0-30.0) sec ABG Total CO2 (19-24) mmol/L Chloride (98-107) mmol/L BUN (9-20) mg/dL Glucose (74-99) mg/dL POC Glucose (mg/dL) 207 H 206 H (75-99) mg/dL Uric Acid (3.5-8.5) mg/dL Calcium (8.4-10.2) mg/dL Phosphorus (2.5-4.5) mg/dL Magnesium (1.6-2.3) mg/dL AST (17-59) U/L Lactate Dehydrogenase (313-618) U/L Total Protein (6.3-8.2) g/dL Albumin (3.5-5.0) g/dL 09/04/20 09/04/20 09/04/20 Range/Units 05:00 05:00 05:00 WBC 36.9 H (3.8-10.6) k/uL RBC 2.04 L (4.30-5.90) m/uL Hgb 7.4 L (13.0-17.5) gm/dL Hct 20.2 L (39.0-53.0) % MCH 36.1 H (25.0-35.0) pg RDW 18.6 H (11.5-15.5) % Plt Count 76 L (150-450) k/uL Blast Cells % 46 H* % Lymphocytes # (Manual) 5.17 H (1.0-4.8) k/uL Monocytes # (Manual) 1.48 H (0-1.0) k/uL Myelocytes # (Manual) 5.90 H (0) k/uL Blast Cells # (Man) 16.97 H (0) k/uL Nucleated RBCs 2 H (0-0) /100 WBC Haptoglobin (31.2-198.0) mg/dL PT 12.1 H (9.0-12.0) sec INR 1.2 H (<1.2) APTT 20.7 L (22.0-30.0) sec ABG Total CO2 (19-24) mmol/L Chloride 118 H (98-107) mmol/L BUN 47 H (9-20) mg/dL Glucose 181 H (74-99) mg/dL POC Glucose (mg/dL) (75-99) mg/dL Uric Acid 2.6 L (3.5-8.5) mg/dL Calcium 7.3 L (8.4-10.2) mg/dL Phosphorus 4.6 H (2.5-4.5) mg/dL Magnesium 3.0 H (1.6-2.3) mg/dL AST 73 H (17-59) U/L Lactate Dehydrogenase 95757 H (313-618) U/L Total Protein 5.3 L (6.3-8.2) g/dL Albumin 2.7 L (3.5-5.0) g/dL 09/04/20 09/04/20 09/04/20 Range/Units 05:12 05:12 05:56 WBC (3.8-10.6) k/uL RBC (4.30-5.90) m/uL Hgb (13.0-17.5) gm/dL Hct (39.0-53.0) % MCH (25.0-35.0) pg RDW (11.5-15.5) % Plt Count (150-450) k/uL Blast Cells % % Lymphocytes # (Manual) (1.0-4.8) k/uL Monocytes # (Manual) (0-1.0) k/uL Myelocytes # (Manual) (0) k/uL Blast Cells # (Man) (0) k/uL Nucleated RBCs (0-0) /100 WBC Haptoglobin (31.2-198.0) mg/dL PT (9.0-12.0) sec INR (<1.2) APTT (22.0-30.0) sec ABG Total CO2 25 H (19-24) mmol/L Chloride (98-107) mmol/L BUN (9-20) mg/dL Glucose (74-99) mg/dL POC Glucose (mg/dL) 191 H 196 H (75-99) mg/dL Uric Acid (3.5-8.5) mg/dL Calcium (8.4-10.2) mg/dL Phosphorus (2.5-4.5) mg/dL Magnesium (1.6-2.3) mg/dL AST (17-59) U/L Lactate Dehydrogenase (313-618) U/L Total Protein (6.3-8.2) g/dL Albumin (3.5-5.0) g/dL 09/04/20 09/04/20 09/04/20 Range/Units 07:04 07:55 09:33 WBC (3.8-10.6) k/uL RBC (4.30-5.90) m/uL Hgb (13.0-17.5) gm/dL Hct (39.0-53.0) % MCH (25.0-35.0) pg RDW (11.5-15.5) % Plt Count (150-450) k/uL Blast Cells % % Lymphocytes # (Manual) (1.0-4.8) k/uL Monocytes # (Manual) (0-1.0) k/uL Myelocytes # (Manual) (0) k/uL Blast Cells # (Man) (0) k/uL Nucleated RBCs (0-0) /100 WBC Haptoglobin (31.2-198.0) mg/dL PT (9.0-12.0) sec INR (<1.2) APTT (22.0-30.0) sec ABG Total CO2 (19-24) mmol/L Chloride (98-107) mmol/L BUN (9-20) mg/dL Glucose (74-99) mg/dL POC Glucose (mg/dL) 167 H 174 H 150 H (75-99) mg/dL Uric Acid (3.5-8.5) mg/dL Calcium (8.4-10.2) mg/dL Phosphorus (2.5-4.5) mg/dL Magnesium (1.6-2.3) mg/dL AST (17-59) U/L Lactate Dehydrogenase (313-618) U/L Total Protein (6.3-8.2) g/dL Albumin (3.5-5.0) g/dL 1009/04/20 09/04/20 Range/Units 10:01 11:06 11:56 WBC (3.8-10.6) k/uL RBC (4.30-5.90) m/uL Hgb (13.0-17.5) gm/dL Hct (39.0-53.0) % MCH (25.0-35.0) pg RDW (11.5-15.5) % Plt Count (150-450) k/uL Blast Cells % % Lymphocytes # (Manual) (1.0-4.8) k/uL Monocytes # (Manual) (0-1.0) k/uL Myelocytes # (Manual) (0) k/uL Blast Cells # (Man) (0) k/uL Nucleated RBCs (0-0) /100 WBC Haptoglobin (31.2-198.0) mg/dL PT (9.0-12.0) sec INR (<1.2) APTT (22.0-30.0) sec ABG Total CO2 (19-24) mmol/L Chloride (98-107) mmol/L BUN (9-20) mg/dL Glucose (74-99) mg/dL POC Glucose (mg/dL) 136 H 128 H 117 H (75-99) mg/dL Uric Acid (3.5-8.5) mg/dL Calcium (8.4-10.2) mg/dL Phosphorus (2.5-4.5) mg/dL Magnesium (1.6-2.3) mg/dL AST (17-59) U/L Lactate Dehydrogenase (313-618) U/L Total Protein (6.3-8.2) g/dL Albumin (3.5-5.0) g/dL 09/04/20 Range/Units 12:59 WBC (3.8-10.6) k/uL RBC (4.30-5.90) m/uL Hgb (13.0-17.5) gm/dL Hct (39.0-53.0) % MCH (25.0-35.0) pg RDW (11.5-15.5) % Plt Count (150-450) k/uL Blast Cells % % Lymphocytes # (Manual) (1.0-4.8) k/uL Monocytes # (Manual) (0-1.0) k/uL Myelocytes # (Manual) (0) k/uL Blast Cells # (Man) (0) k/uL Nucleated RBCs (0-0) /100 WBC Haptoglobin (31.2-198.0) mg/dL PT (9.0-12.0) sec INR (<1.2) APTT (22.0-30.0) sec ABG Total CO2 (19-24) mmol/L Chloride (98-107) mmol/L BUN (9-20) mg/dL Glucose (74-99) mg/dL POC Glucose (mg/dL) 207 H (75-99) mg/dL Uric Acid (3.5-8.5) mg/dL Calcium (8.4-10.2) mg/dL Phosphorus (2.5-4.5) mg/dL Magnesium (1.6-2.3) mg/dL AST (17-59) U/L Lactate Dehydrogenase (313-618) U/L Total Protein (6.3-8.2) g/dL Albumin (3.5-5.0) g/dL Microbiology - Last 24 Hours (Table) 08/31/20 10:30 Bronchial Washings Culture - Final Bronchial Washings - Random Assessment and Plan Plan: 1 acute hypoxic respiratory failure, with development of diffuse bilateral pulmonary infiltrates, possibly related to acute lung injury from various insult related to acute promyelocytic leukemia treatment. The patient got intubated on 08/30/2020 and the patient is currently on a mechanical ventilator. Chest x-ray still showing diffuse but the pulmonary infiltrates. 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 The patient is having low-grade fever. No bacterial growth. The patient is on Zosyn. We are considering the addition of antiviral medication regarding HSV 1 related pneumonias. Nevertheless, the possibility of an acute hypoxic respiratory failure due to proliferation syndrome while the patient was taken ATRA is also considered. 2 chronic atrial fibrillation with persistent tachycardia despite ongoing management with a combination of amiodarone, Cardizem, metoprolol and digoxin. The patient remains tachycardic and requiring norepinephrine infusion for blood pressure control and blood pressure support. 3 acute leukocytosis with a White cell count is up to 36, with essentially 57% blasts, high level of blasts, in addition to anemia and thrombocytopenia. This is related to acute leukemic crisis, and the patient is currently receiving cytarabine 4 acute promyelocytic leukemia treated with arsenic trioxide and retinoic acid, DAVIDSON and ATRA on outpatient basis which was discontinued and the patient was switched to cytarabine systemic chemotherapy that was started yesterday to be co mpleted today. 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 Will add acyclovir to monitor the fever pattern. Continue the pressors for hemodynamic supportContinue same cardiac medication f or rate control in regards to atrial fibrillation. Not a candidate for anticoagulation. The patient is currently receiving systemic chemotherapy with cytarabine.We are going to monitor the hematologic profile, LDH, white cell count is the differential count addition to the hemoglobin and the platelet count. Continue IV Zosyn as empiric antibiotic coverage Continue enteral feeding for nutritional support Insulin drip for blood sugar control Monitor labs for any possibility of a tumor lysis syndrome Prognosis extremely poor baseline above-mentioned comorbidities Monitor electrolytes critical condition will continue to follow make further recommendations based on the progress. This evaluation was done and morning 30 minutes. Time with Patient: Greater than 30
[2020-09-04 13:25] LABS: Glucose,Whole Blood 205 mg/dL (75-99)
[2020-09-04 14:17] LABS: Glucose,Whole Blood 173 mg/dL (75-99)
[2020-09-04 15:04] LABS: Glucose,Whole Blood 174 mg/dL (75-99)
[2020-09-04] MEDS: NOREPINEPHRINE 32 MG in SODIUM CHLORIDE 0.9% 218 ML IV SCH (15:04)
[2020-09-04] MEDS: ACYCLOVIR SODIUM 1,000 MG in SODIUM CHLORIDE 0.9% 250 ML IVPB SCH (15:10)
--- NOTE | 2020-09-04 15:14 | P.PN ---
Subjective Progress Note Date: 09/04/20 Principal diagnosis: APL - Acute Hypoxic respiratory failure Patient seen and evaluated this am, discussed in detail with RN. Patient was started on cytarabine overnight receiving bag number 1 of 3. Phos and mag are increased, monitoring TLS, uric acid is starting to increase although still in low normal . Objective - Vital Signs Vital signs: Vital Signs Temp 100.2 F H 09/04/20 12:00 Pulse 105 H 09/04/20 14:00 Resp 24 09/04/20 14:00 BP 89/58 09/04/20 14:00 Pulse Ox 97 09/04/20 14:00 Intake & Output 09/03/20 09/04/20 09/04/20 18:59 06:59 18:59 Intake Total 2350.999 3877.576 1212.757 Output Total 930 1300 1994 Balance 582.931 491.576 -782.243 Weight 101.6 kg 100.1 kg 100.1 kg Intake: IV 470 879 346 0.9 110 840 195 Normal Saline Pressure 60 39 51 Bag Piperacillin-Tazobactam 3 300 100 .375 gm In Sodium Chloride 0.9% 100 ml @ 25 mls/hr IVPB Q12HR ANA Rx #:[id number] Intake, IV Titration 696.931 612.576 506.757 Amount Diltiazem 125 mg In 211.25 125 125 Sodium Chloride 0.9% 100 ml @ 15 MG/HR 15 mls/hr IV .Q8H20M ANA Rx#: [id number] Insulin Regular 100 unit 101.000 184.442 76.962 In Sodium Chloride 0.9% 100 ml @ Per Protocol IV .Q0M ANA Rx#:[id number] Norepinephrine 32 mg In 15.846 15.546 11.902 Sodium Chloride 0.9% 218 ml @ 0.06 MCG/KG/MIN 2. 776 mls/hr IV .Q24H ANA Rx#:[id number] propofoL 1,000 mg In 368.835 287.588 292.893 Empty Bag 1 bag @ Titrate IV .Q0M ANA Rx#: [id number] Oral 60 Tube Feeding 256 240 180 Other 90 60 120 Output: Urine 930 1300 1994 Other: Voiding Method Indwelling Catheter Indwelling Catheter Indwelling Catheter # Voids 350 ABP, PAP, CO, CI - Last Documented Arterial Blood Pressure 106/52 - Exam - Constitutional Constitutional Comment(s): Ventilator - EENT Eyes: Present: EOMI ENT:ET tube - Respiratory Respiratory: bilateral: rales, rhonchi - Cardiovascular Rhythm: irregularly irregular Heart sounds: normal: S1, S2 - Gastrointestinal General gastrointestinal: Present: distended, normal bowel sounds, soft - Integumentary Integumentary: Present: normal - Neurologic Neurologic:KARSTEN - Musculoskeletal Musculoskeletal:Atrophy noted to muscles, KARSTEN strength - Psychiatric Psychiatric: KARSTEN - Labs CBC & Chem 7: 09/04/20 05:00 09/04/20 05:00 Labs: Abnormal Lab Results - Last 24 Hours (Table) 09/03/20 09/03/20 09/03/20 Range/Units 16:56 19:03 21:04 WBC (3.8-10.6) k/uL RBC (4.30-5.90) m/uL Hgb (13.0-17.5) gm/dL Hct (39.0-53.0) % MCH (25.0-35.0) pg RDW (11.5-15.5) % Plt Count (150-450) k/uL Blast Cells % % Lymphocytes # (Manual) (1.0-4.8) k/uL Monocytes # (Manual) (0-1.0) k/uL Myelocytes # (Manual) (0) k/uL Blast Cells # (Man) (0) k/uL Nucleated RBCs (0-0) /100 WBC Haptoglobin (31.2-198.0) mg/dL PT (9.0-12.0) sec INR (<1.2) APTT (22.0-30.0) sec ABG Total CO2 (19-24) mmol/L Chloride (98-107) mmol/L BUN (9-20) mg/dL Glucose (74-99) mg/dL POC Glucose (mg/dL) 152 H 170 H 166 H (75-99) mg/dL Uric Acid (3.5-8.5) mg/dL Calcium (8.4-10.2) mg/dL Phosphorus (2.5-4.5) mg/dL Magnesium (1.6-2.3) mg/dL AST (17-59) U/L Lactate Dehydrogenase (313-618) U/L Total Protein (6.3-8.2) g/dL Albumin (3.5-5.0) g/dL 09/03/20 09/03/20 09/04/20 Range/Units 22:03 23:53 02:02 WBC (3.8-10.6) k/uL RBC (4.30-5.90) m/uL Hgb (13.0-17.5) gm/dL Hct (39.0-53.0) % MCH (25.0-35.0) pg RDW (11.5-15.5) % Plt Count (150-450) k/uL Blast Cells % % Lymphocytes # (Manual) (1.0-4.8) k/uL Monocytes # (Manual) (0-1.0) k/uL Myelocytes # (Manual) (0) k/uL Blast Cells # (Man) (0) k/uL Nucleated RBCs (0-0) /100 WBC Haptoglobin (31.2-198.0) mg/dL PT (9.0-12.0) sec INR (<1.2) APTT (22.0-30.0) sec ABG Total CO2 (19-24) mmol/L Chloride (98-107) mmol/L BUN (9-20) mg/dL Glucose (74-99) mg/dL POC Glucose (mg/dL) 149 H 157 H 138 H (75-99) mg/dL Uric Acid (3.5-8.5) mg/dL Calcium (8.4-10.2) mg/dL Phosphorus (2.5-4.5) mg/dL Magnesium (1.6-2.3) mg/dL AST (17-59) U/L Lactate Dehydrogenase (313-618) U/L Total Protein (6.3-8.2) g/dL Albumin (3.5-5.0) g/dL 09/04/20 09/04/20 09/04/20 Range/Units 03:22 04:10 05:00 WBC (3.8-10.6) k/uL RBC (4.30-5.90) m/uL Hgb (13.0-17.5) gm/dL Hct (39.0-53.0) % MCH (25.0-35.0) pg RDW (11.5-15.5) % Plt Count (150-450) k/uL Blast Cells % % Lymphocytes # (Manual) (1.0-4.8) k/uL Monocytes # (Manual) (0-1.0) k/uL Myelocytes # (Manual) (0) k/uL Blast Cells # (Man) (0) k/uL Nucleated RBCs (0-0) /100 WBC Haptoglobin 383.0 H (31.2-198.0) mg/dL PT (9.0-12.0) sec INR (<1.2) APTT (22.0-30.0) sec ABG Total CO2 (19-24) mmol/L Chloride (98-107) mmol/L BUN (9-20) mg/dL Glucose (74-99) mg/dL POC Glucose (mg/dL) 207 H 206 H (75-99) mg/dL Uric Acid (3.5-8.5) mg/dL Calcium (8.4-10.2) mg/dL Phosphorus (2.5-4.5) mg/dL Magnesium (1.6-2.3) mg/dL AST (17-59) U/L Lactate Dehydrogenase (313-618) U/L Total Protein (6.3-8.2) g/dL Albumin (3.5-5.0) g/dL 09/04/20 09/04/20 09/04/20 Range/Units 05:00 05:00 05:00 WBC 36.9 H (3.8-10.6) k/uL RBC 2.04 L (4.30-5.90) m/uL Hgb 7.4 L (13.0-17.5) gm/dL Hct 20.2 L (39.0-53.0) % MCH 36.1 H (25.0-35.0) pg RDW 18.6 H (11.5-15.5) % Plt Count 76 L (150-450) k/uL Blast Cells % 46 H* % Lymphocytes # (Manual) 5.17 H (1.0-4.8) k/uL Monocytes # (Manual) 1.48 H (0-1.0) k/uL Myelocytes # (Manual) 5.90 H (0) k/uL Blast Cells # (Man) 16.97 H (0) k/uL Nucleated RBCs 2 H (0-0) /100 WBC Haptoglobin (31.2-198.0) mg/dL PT 12.1 H (9.0-12.0) sec INR 1.2 H (<1.2) APTT 20.7 L (22.0-30.0) sec ABG Total CO2 (19-24) mmol/L Chloride 118 H (98-107) mmol/L BUN 47 H (9-20) mg/dL Glucose 181 H (74-99) mg/dL POC Glucose (mg/dL) (75-99) mg/dL Uric Acid 2.6 L (3.5-8.5) mg/dL Calcium 7.3 L (8.4-10.2) mg/dL Phosphorus 4.6 H (2.5-4.5) mg/dL Magnesium 3.0 H (1.6-2.3) mg/dL AST 73 H (17-59) U/L Lactate Dehydrogenase 00567 H (313-618) U/L Total Protein 5.3 L (6.3-8.2) g/dL Albumin 2.7 L (3.5-5.0) g/dL 09/04/20 09/04/20 09/04/20 Range/Units 05:12 05:12 05:56 WBC (3.8-10.6) k/uL RBC (4.30-5.90) m/uL Hgb (13.0-17.5) gm/dL Hct (39.0-53.0) % MCH (25.0-35.0) pg RDW (11.5-15.5) % Plt Count (150-450) k/uL Blast Cells % % Lymphocytes # (Manual) (1.0-4.8) k/uL Monocytes # (Manual) (0-1.0) k/uL Myelocytes # (Manual) (0) k/uL Blast Cells # (Man) (0) k/uL Nucleated RBCs (0-0) /100 WBC Haptoglobin (31.2-198.0) mg/dL PT (9.0-12.0) sec INR (<1.2) APTT (22.0-30.0) sec ABG Total CO2 25 H (19-24) mmol/L Chloride (98-107) mmol/L BUN (9-20) mg/dL Glucose (74-99) mg/dL POC Glucose (mg/dL) 191 H 196 H (75-99) mg/dL Uric Acid (3.5-8.5) mg/dL Calcium (8.4-10.2) mg/dL Phosphorus (2.5-4.5) mg/dL Magnesium (1.6-2.3) mg/dL AST (17-59) U/L Lactate Dehydrogenase (313-618) U/L Total Protein (6.3-8.2) g/dL Albumin (3.5-5.0) g/dL 09/04/20 09/04/20 09/04/20 Range/Units 07:04 07:55 09:33 WBC (3.8-10.6) k/uL RBC (4.30-5.90) m/uL Hgb (13.0-17.5) gm/dL Hct (39.0-53.0) % MCH (25.0-35.0) pg RDW (11.5-15.5) % Plt Count (150-450) k/uL Blast Cells % % Lymphocytes # (Manual) (1.0-4.8) k/uL Monocytes # (Manual) (0-1.0) k/uL Myelocytes # (Manual) (0) k/uL Blast Cells # (Man) (0) k/uL Nucleated RBCs (0-0) /100 WBC Haptoglobin (31.2-198.0) mg/dL PT (9.0-12.0) sec INR (<1.2) APTT (22.0-30.0) sec ABG Total CO2 (19-24) mmol/L Chloride (98-107) mmol/L BUN (9-20) mg/dL Glucose (74-99) mg/dL POC Glucose (mg/dL) 167 H 174 H 150 H (75-99) mg/dL Uric Acid (3.5-8.5) mg/dL Calcium (8.4-10.2) mg/dL Phosphorus (2.5-4.5) mg/dL Magnesium (1.6-2.3) mg/dL AST (17-59) U/L Lactate Dehydrogenase (313-618) U/L Total Protein (6.3-8.2) g/dL Albumin (3.5-5.0) g/dL 09/04/20 09/04/20 09/04/20 Range/Units 10:01 11:06 11:56 WBC (3.8-10.6) k/uL RBC (4.30-5.90) m/uL Hgb (13.0-17.5) gm/dL Hct (39.0-53.0) % MCH (25.0-35.0) pg RDW (11.5-15.5) % Plt Count (150-450) k/uL Blast Cells % % Lymphocytes # (Manual) (1.0-4.8) k/uL Monocytes # (Manual) (0-1.0) k/uL Myelocytes # (Manual) (0) k/uL Blast Cells # (Man) (0) k/uL Nucleated RBCs (0-0) /100 WBC Haptoglobin (31.2-198.0) mg/dL PT (9.0-12.0) sec INR (<1.2) APTT (22.0-30.0) sec ABG Total CO2 (19-24) mmol/L Chloride (98-107) mmol/L BUN (9-20) mg/dL Glucose (74-99) mg/dL POC Glucose (mg/dL) 136 H 128 H 117 H (75-99) mg/dL Uric Acid (3.5-8.5) mg/dL Calcium (8.4-10.2) mg/dL Phosphorus (2.5-4.5) mg/dL Magnesium (1.6-2.3) mg/dL AST (17-59) U/L Lactate Dehydrogenase (313-618) U/L Total Protein (6.3-8.2) g/dL Albumin (3.5-5.0) g/dL 09/04/20 09/04/20 09/04/20 Range/Units 12:59 13:24 14:14 WBC (3.8-10.6) k/uL RBC (4.30-5.90) m/uL Hgb (13.0-17.5) gm/dL Hct (39.0-53.0) % MCH (25.0-35.0) pg RDW (11.5-15.5) % Plt Count (150-450) k/uL Blast Cells % % Lymphocytes # (Manual) (1.0-4.8) k/uL Monocytes # (Manual) (0-1.0) k/uL Myelocytes # (Manual) (0) k/uL Blast Cells # (Man) (0) k/uL Nucleated RBCs (0-0) /100 WBC Haptoglobin (31.2-198.0) mg/dL PT (9.0-12.0) sec INR (<1.2) APTT (22.0-30.0) sec ABG Total CO2 (19-24) mmol/L Chloride (98-107) mmol/L BUN (9-20) mg/dL Glucose (74-99) mg/dL POC Glucose (mg/dL) 207 H 205 H 173 H (75-99) mg/dL Uric Acid (3.5-8.5) mg/dL Calcium (8.4-10.2) mg/dL Phosphorus (2.5-4.5) mg/dL Magnesium (1.6-2.3) mg/dL AST (17-59) U/L Lactate Dehydrogenase (313-618) U/L Total Protein (6.3-8.2) g/dL Albumin (3.5-5.0) g/dL 09/04/20 Range/Units 15:02 WBC (3.8-10.6) k/uL RBC (4.30-5.90) m/uL Hgb (13.0-17.5) gm/dL Hct (39.0-53.0) % MCH (25.0-35.0) pg RDW (11.5-15.5) % Plt Count (150-450) k/uL Blast Cells % % Lymphocytes # (Manual) (1.0-4.8) k/uL Monocytes # (Manual) (0-1.0) k/uL Myelocytes # (Manual) (0) k/uL Blast Cells # (Man) (0) k/uL Nucleated RBCs (0-0) /100 WBC Haptoglobin (31.2-198.0) mg/dL PT (9.0-12.0) sec INR (<1.2) APTT (22.0-30.0) sec ABG Total CO2 (19-24) mmol/L Chloride (98-107) mmol/L BUN (9-20) mg/dL Glucose (74-99) mg/dL POC Glucose (mg/dL) 174 H (75-99) mg/dL Uric Acid (3.5-8.5) mg/dL Calcium (8.4-10.2) mg/dL Phosphorus (2.5-4.5) mg/dL Magnesium (1.6-2.3) mg/dL AST (17-59) U/L Lactate Dehydrogenase (313-618) U/L Total Protein (6.3-8.2) g/dL Albumin (3.5-5.0) g/dL Microbiology - Last 24 Hours (Table) 08/31/20 10:30 Fungal Culture - Preliminary Bronchial Washings - Random [place] albicans 08/31/20 10:30 Bronchial Washings Culture - Final Bronchial Washings - Random Assessment and Plan Plan: Assessment and Recommendations: 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 Unfort worsened to 56% on 09/02/20 and today 59% on 09/03/20. Unable to administer hydrea dosage through feeding tube while on ventilator therefore will order Cyatarbine 100mg/m2 iv x3 days as cytoreduction treatment. 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 Hoping to restart 24- 48 hour, continue Hydrea in the interim. 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 - Continue on Steroids/PPI Plan/UPdate 09/04/20: - Continue on Cyatarbine 100mg/m2 iv x3 days as cytoreduction treatment. - When improved will restart APL treatment with arsenic and atra at day 4 - COntinue to monitor daily Coags, TLS labs, CBC with differential daily Physician Attest: I have completed the full history and physical and developed the full impression and plan, agree with above dictation, dictated as a scribe.
[2020-09-04 16:11] LABS: Glucose,Whole Blood 175 mg/dL (75-99)
[2020-09-04 17:17] LABS: Glucose,Whole Blood 144 mg/dL (75-99)
--- NOTE | 2020-09-04 17:34 | P.PN ---
Progress Note - Text Progress Note Date: 09/04/20 Presenting complaint: Tired Interval history: This is a patient who was recently diagnosed with promyelocytic leukemia. On chemotherapy. Went to CHF and atrial fibrillation with rapid ventricular rate. Transferred to telemetry floor. 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 started on IV dexamethasone. Put on a Cardizem drip. Requiring high flow oxygen. Given IV Lasix. On August [address] on BiPAP, transferred to ICU. Intubated Patient also to acute kidney injury. Also went into atrial flutter with rapid ventricular rate. Put on IV Cardizem drip. [id number]-dgumcoe on the ventilator. FiO2 50 and a PEEP of 5. Remains on atrial flutter to heart.-Controlled. Drips include Cardizem, levo fed, insulin. Tube feeding at goal at 20. Per oncology patient started on IV cytarabine. Febrile Review of systems: Patient intubated Active Medications Acetaminophen (Acetaminophen Tab 500 Mg Tab) 500 mg PO Q4HR PRN PRN Reason: Fever and/ or Pain Last Admin: 09/04/20 15:35 Dose: 500 mg Documented by: Hydrocodone Bitart/Acetaminophen (Hydrocodone/Apap 10-325mg 1 Each Tab) 1 each PO QID PRN PRN Reason: Pain Last Admin: 09/03/20 12:38 Dose: 1 each Documented by: Al Hydroxide/Mg Hydroxide (Mag Hydrox/Al Hydrox/Simeth 30 Ml Cup) 30 ml PO Q4HR PRN PRN Reason: GI Upset Last Admin: 08/29/20 02:27 Dose: 30 ml Documented by: Amiodarone HCl (Amiodarone 200 Mg Tab) 400 mg PO BID [facility] Last Admin: 09/04/20 09:05 Dose: 400 mg Documented by: Atorvastatin Calcium (Atorvastatin 10 Mg Tab) 10 mg PO HS [facility] Last Admin: 09/03/20 20:12 Dose: 10 mg Documented by: Chlorhexidine Gluconate (Chlorhexidine Gluconate 15 Ml Cup) 15 ml MUCOUS MEM BID [facility] Last Admin: 09/04/20 09:04 Dose: 15 ml Documented by: Dexamethasone Sodium Phosphate (Dexamethasone Sod Phosphate 4 Mg/Ml 1 Ml Vial) 5 mg IV Q6HR [facility] Last Admin: 09/04/20 11:54 Dose: 5 mg Documented by: Digoxin (Digoxin 250 Mcg Tab) 250 mcg PO DAILY [facility] Last Admin: 09/04/20 09:06 Dose: 250 mcg Documented by: Famotidine (Famotidine 20 Mg/2 Ml Vial) 20 mg IV Q24H [facility] Stop: 09/05/20 19:01 Last Admin: 09/03/20 19:36 Dose: 20 mg Documented by: Furosemide (Furosemide 10 Mg/Ml 4 Ml Vial) 40 mg IV DAILY [facility] Last Admin: 09/04/20 09:06 Dose: 40 mg Documented by: Gabapentin (Gabapentin 100 Mg Cap) 100 mg PO TID [facility] Last Admin: 09/04/20 15:10 Dose: 100 mg Documented by: Diltiazem HCl 125 mg/ Sodium (Chloride) 125 mls @ 15 mls/hr IV .Q8H20M [facility] Last Admin: 09/04/20 10:33 Dose: 15 mg/hr, 15 mls/hr Documented by: Propofol 1,000 mg/ IV Solution 100 mls @ 0 mls/hr IV .Q0M [facility]; Protocol Last Admin: 09/04/20 13:21 Dose: 60 mcg/kg/min, 36.036 mls/hr Documented by: Insulin Human Regular 100 unit (/ Sodium Chloride) 101 mls @ 0 mls/hr IV .Q0M [facility]; Protocol Last Titration: 09/04/20 14:15 Dose: 13 units/hr, 13.13 mls/hr Documented by: Norepinephrine Bitartrate 32 (mg/ Sodium Chloride) 250 mls @ 2.776 mls/hr IV .Q24H [facility]; Protocol Last Admin: 09/04/20 15:04 Dose: 0.02 mcg/kg/min, 0.925 mls/hr Documented by: Piperacillin Sod/Tazobactam (Sod 3.375 gm/ Sodium Chloride) 100 mls @ 25 mls/hr IVPB Q8HR [facility] Last Admin: 09/04/20 15:10 Dose: 25 mls/hr Documented by: Ondansetron HCl 16 mg/ Sodium (Chloride) 58 mls @ 232 mls/hr IVPB Q24H [facility] Stop: 09/05/20 19:14 Last Admin: 09/03/20 19:37 Dose: 232 mls/hr Documented by: Cytarabine 210 mg/ Sodium (Chloride) 1,010.5 mls @ 42.104 mls/hr IV Q24H [facility] Stop: 09/06/20 19:59 Last Admin: 09/03/20 20:26 Dose: 42.104 mls/hr Documented by: Sodium Chloride (Saline 0.9%) 1,000 mls @ 75 mls/hr IV .[id number] [facility] Last Admin: 09/04/20 09:10 Dose: 75 mls/hr Documented by: Acyclovir Sodium 1,000 mg/ (Sodium Chloride) 270 mls @ 270 mls/hr IVPB Q8HR [facility] Last Admin: 09/04/20 15:10 Dose: 270 mls/hr Documented by: Insulin Human Regular (Insulin Regular Bolus (From Drip Bag)) 9.9 unit 0.1 unit/kg (9.9 unit) IV ONCE PRN PRN Reason: Blood Sugar - High Stop: 09/30/20 21:00 Magnesium Oxide (Magnesium Oxide 400 Mg Tab) 400 mg PO DAILY [facility] Last Admin: 09/04/20 08:28 Dose: Not Given Documented by: Metoprolol Tartrate (Metoprolol Tartrate 50 Mg Tab) 100 mg PO TID [facility] Last Admin: 09/04/20 15:10 Dose: 100 mg Documented by: Miscellaneous Information (Potassium Replacement Protocol 1 Each Misc) 1 each MISCELLANE DAILY PRN; Protocol PRN Reason: Per Protocol Miscellaneous Information (Magnesium Replacement Protocol 1 Each Misc) 1 each MISCELLANE DAILY PRN; Protocol PRN Reason: Per Protocol Pantoprazole Sodium (Pantoprazole 40 Mg/10 Ml Vial) 40 mg IVP BID [facility] Last Admin: 09/04/20 09:04 Dose: 40 mg Documented by: Potassium Chloride (Potassium Chloride Er 20 Meq Tab.Er) 20 meq PO BID [facility] Last Admin: 09/04/20 08:28 Dose: Not Given Documented by: Senna (Sennosides 8.6 Mg Tab) 8.6 mg PO DAILY [facility] Last Admin: 09/04/20 09:06 Dose: 8.6 mg Documented by: Tamsulosin HCl (Tamsulosin 0.4 Mg Cap.Er.24h) 0.4 mg PO BID [facility] Last Admin: 09/04/20 09:06 Dose: 0.4 mg Documented by: On examination: VITAL SIGNS: Afebrile, 116, 21, 91/51, 97% on the ventilator GENERAL APPEARANCE: in bed, intubated HEENT: Endotracheal tube, OG tube EYES: Pupils equal. Conjunctiva normal. NECK: JVD unable to assess. Mass not palpable. RESPIRATORY: Respiratory effort increased. , decreased breath sounds. CARDIOVASCULAR: Heart sounds irregular, no edema ABDOMEN: Soft. Liver and spleen not palpable. No tenderness. No mass palpable. PSYCHIATRY: Sedated INVESTIGATIONS, reviewed in the clinical context: White count 36.9, hemoglobin 7.4 platelets 76 blast 46% potassium 4.6 creatinine 0.95 uric acid 2.6 LDH [id number] Previous testing White count 1.5 hemoglobin 8.3 platelets 52 blast cells 30% Potassium 3.8 creatinine 1.24 blood glucose 276 lactic acid 3.5 uric acid 1.3 Chest x-ray film personally reviewed by me-pulmonary edema 2-D echocardiogram from last month showed EF 60-65% Assessment: -Persistent atrial flutter-fibrillation with a rapid ventricular rate,-better controlled today -Acute congestive heart failure exacerbation from diastolic dysfunction EF 60- 65%, precipitated by atrial flutter fibrillation with a rapid ventricular rate- improved -Acute hypoxic respiratory failure requiring ventilator support.-Slow to respond -Questionable pneumonia. Though infiltrates could be from leukocytes from the differential syndrome. - Differential syndrome with treatment of APL with arsenic worsening blast cells-started on cytarabine today -Hypotensive shock-requiring pressor support-uncontrolled -Diabetes mellitus type 2, uncontrolled with hyperglycemia secondary to steroids -Essential hypertension, history of -Hyperlipidemia -Primary osteoarthritis -Obstructive sleep apnea uses CPAP -Childhood polio -Obstructive sleep apnea uses CPAP -Primary osteoarthritis -Promyelocytic leukemia-started on induction treatment with arsenic trioxide and Atra-went into differential syndrome-now started on cytarabine on September 04 -Acute kidney injury,-improved Plan: Patient currently and IV Cardizem drip, hydroxyurea, insulin drip, Lopressor, levo fed drip, IV Zosyn, propofol,amiodarone,digoxin IV dexamethasone. 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 Prognosis guarded
[2020-09-04 18:01] LABS: Glucose,Whole Blood 143 mg/dL (75-99)
[2020-09-04 19:04] LABS: Glucose,Whole Blood 142 mg/dL (75-99)
[2020-09-04] MEDS: CYTARABINE IV SCH (19:53)
[2020-09-04] MEDS: SODIUM CHLORIDE 0.9% IV SCH (19:53)
[2020-09-04] MEDS: FAMOTIDINE 20 MG/2 ML VIAL IV SCH (20:00)
[2020-09-04] MEDS: ATORVASTATIN 10 MG TAB PO SCH (20:12)
[2020-09-04] MEDS: ONDANSETRON 16 MG in SODIUM CHLORIDE 0.9% 50 ML IVPB SCH (20:17)
[2020-09-04 20:29] LABS: Glucose,Whole Blood 122 mg/dL (75-99)
[2020-09-04 21:08] LABS: Glucose,Whole Blood 120 mg/dL (75-99)
[2020-09-04 22:03] LABS: Glucose,Whole Blood 111 mg/dL (75-99)
[2020-09-04 22:58] LABS: Glucose,Whole Blood 165 mg/dL (75-99)
[2020-09-05 00:05] LABS: Glucose,Whole Blood 141 mg/dL (75-99)
[2020-09-05] MEDS: INSULIN REGULAR 100 UNIT in SODIUM CHLORIDE 0.9% 100 ML IV SCH ×3 (00:09→20:11)
[2020-09-05] MEDS: SODIUM CHLORIDE 0.9% 1,000 ML IV SCH ×2 (00:37→15:22)
[2020-09-05] MEDS: ACYCLOVIR SODIUM 1,000 MG in SODIUM CHLORIDE 0.9% 250 ML IVPB SCH ×4 (00:38→23:33)
[2020-09-05 01:16] LABS: Glucose,Whole Blood 137 mg/dL (75-99)
[2020-09-05 02:18] LABS: Glucose,Whole Blood 178 mg/dL (75-99)
[2020-09-05] MEDS: DILTIAZEM 125 MG in SODIUM CHLORIDE 0.9% 100 ML IV SCH ×3 (02:55→19:42)
[2020-09-05 03:15] LABS: Glucose,Whole Blood 167 mg/dL (75-99)
[2020-09-05 04:12] LABS: Glucose,Whole Blood 165 mg/dL (75-99)
[2020-09-05 04:21] LABS: Anisocytosis Slight; HGB 7.1 gm/dL (13.0-17.5); Hypochromasia Slight; MCH 37.1 pg (25.0-35.0); MCHC 36.7 g/dL (31.0-37.0); MCV 101.2 fL (80.0-100.0); Macrocytosis Moderate; Mean Platelet Volume 8.8; Poikilocytosis Slight; RBC 1.91 m/uL (4.30-5.90); RDW 18.3 % (11.5-15.5); WBC 33.7 k/uL (3.8-10.6)
[2020-09-05 04:30] LABS: Albumin 2.6 g/dL (3.5-5.0); Calcium 7.3 mg/dL (8.4-10.2); Magnesium 2.9 mg/dL (1.6-2.3); Potassium 5.2 mmol/L (3.5-5.1); Total Bilirubin 0.7 mg/dL (0.2-1.3); Total Protein 4.9 g/dL (6.3-8.2); Uric Acid 3.1 mg/dL (3.5-8.5)
[2020-09-05 04:54] LABS: HCT 19.3 % (39.0-53.0); Platelet Count 74 k/uL (150-450)
[2020-09-05 05:27] LABS: ABG Base Excess -1.7 mmol/L; ABG HCO3 22 mmol/L (21-25); ABG Oxygen Saturation 98.7 % (94-97); ABG PCO2 32 mmHg (35-45); ABG PH 7.46 (7.35-7.45); ABG PO2 121 mmHg (83-108); ABG TCO2 23 mmol/L (19-24); Allen Test Performed? Yes
[2020-09-05 05:28] LABS: INR 1.3 (<1.2)
[2020-09-05 05:32] LABS: Glucose,Whole Blood 151 mg/dL (75-99)
[2020-09-05] MEDS: DEXAMETHASONE SOD PHOSPHATE 4 MG/ML 1 ML VIAL IV SCH ×4 (05:35→23:32)
[2020-09-05 06:04] LABS: Partial Thromboplastin Time 20.8 sec (22.0-30.0)
[2020-09-05 06:17] LABS: Glucose,Whole Blood 140 mg/dL (75-99)
--- NOTE | 2020-09-05 06:57 | XR ---
EXAMINATION TYPE: XR chest 1V portable DATE OF EXAM: 09/05/2020 COMPARISON: 09/14/2020 HISTORY: Tube placement TECHNIQUE: Single frontal view of the chest is obtained. FINDINGS: ET and NG tube stable. Central line stable. Bilateral consolidation and pleural effusion s table. No sizable pneumothorax. Heart size stable. IMPRESSION: 1. Diffuse pleural-parenchymal changes correlate for infiltrate. Underlying CHF not excluded.
[2020-09-05 07:02] LABS: Band Neutrophils % 4 %; Lymphocytes # (M) 2.36 k/uL (1.0-4.8); Monocytes # (M) 1.01 k/uL (0-1.0); Myelocytes # (M) 1.69 k/uL (0); Myelocytes % 5 %; Neutrophils % (M) 39 %
[2020-09-05 07:03] LABS: Blast Cells # (M) 14.83 k/uL (0); Nucleated Red Blood Cells 0 /100 WBC (0-0); Total Cells Counted 200
[2020-09-05 07:07] LABS: Glucose,Whole Blood 129 mg/dL (75-99)
[2020-09-05 08:03] LABS: Glucose,Whole Blood 174 mg/dL (75-99)
[2020-09-05] MEDS: FUROSEMIDE 10 MG/ML 4 ML VIAL IV SCH (08:08)
[2020-09-05] MEDS: DIGOXIN 250 MCG TAB PO SCH (08:08)
[2020-09-05] MEDS: CHLORHEXIDINE GLUCONATE 15 ML CUP MUCOUS MEM SCH ×2 (08:08→20:19)
[2020-09-05] MEDS: GABAPENTIN 100 MG CAP PO SCH ×3 (08:08→20:19)
[2020-09-05] MEDS: PANTOPRAZOLE 40 MG/10 ML VIAL IVP SCH ×2 (08:08→20:19)
[2020-09-05] MEDS: METOPROLOL TARTRATE 50 MG TAB PO SCH ×3 (08:08→20:19)
[2020-09-05] MEDS: TAMSULOSIN 0.4 MG CAP.ER.24H PO SCH ×2 (08:09→20:19)
[2020-09-05] MEDS: SENNOSIDES 8.6 MG TAB PO SCH (08:09)
[2020-09-05] MEDS: AMIODARONE 200 MG TAB PO SCH ×2 (08:09→20:19)
[2020-09-05] MEDS: MAGNESIUM OXIDE 400 MG TAB PO SCH (08:09)
[2020-09-05] MEDS: POTASSIUM CHLORIDE ER 20 MEQ TAB.ER PO SCH ×2 (08:09→20:19)
[2020-09-05] MEDS: PIPERACILLIN-TAZOBACTAM 3.375 GM in SODIUM CHLORIDE 0.9% 100 ML IVPB SCH ×3 (08:10→23:33)
--- NOTE | 2020-09-05 09:19 | P.PN ---
Subjective Progress Note Date: 09/05/20 This is a pleasant 75-year-old male currently undergoing chemotherapy. He is in the intensive care unit currently intubated on levophed. He continues to be atrial flutter with rapid rates. Currently up around 160 despite being on max does of lopressor, cardizem, digoxin and amiodarone. Patient with continued atrial flutter with RVR. Heart rates in the 120s 140s. Remains on ventilator with FiO2 40%. Patient under going chemotherapy. White blood cell count 33.7 today with hemoglobin 7.1. Platelets 74. Blasts are at 44%. GENERAL: No acute distress. On ventilator NECK: Supple without JVD or thyromegaly. LUNGS: Bibasilar rales, no wheezes or rhonchi Respiration equal and unlabored. Diminished. HEART: Irregular rate and rhythm with 4/6 systolic ejection murmur at the base, no rubs or gallops. S1 and S2 heard. EXTREMITIES: Normal range of motion, bilateral lower extremity trace pitting edema. No clubbing or cyanosis. Peripheral pulses intact. ASSESSMENT Paroxysmal atrial fibrillation/ atrial flutter with rapid ventricular response. History of cardioversion 2018 Acute on chronic systolic heart failure Aortic stenosis, moderate by most recent echo New-onset cardiomyopathy with ejection fraction 30-35%, possibly tachycardia induced however apical hypokinesis possibly consistent with Takatsubo CMP. History of Hypertension Dyslipidemia Diabetes mellitus Hypotension on pressors PLAN Continue supportive management with pressors as needed, AV tameka blocking agents including Cardizem drip, metoprolol 100 twice a day, digoxin. Continue amiodarone 400 mg twice a day. No cardioversion currently given patient is not an anticoagulation candidate given his thrombocytopenia and anemia from chemotherapy. Continue supportive care for his cardiomyopathy, possible Takatsubo or tachycardia induced. Continue Lasix 40 mg daily and monitor ins and outs. Prognosis guarded, further recommendations to follow. Objective - Vital Signs Vital signs: Vital Signs Temp 98.8 F 09/05/20 04:00 Pulse 124 H 09/05/20 07:00 Resp 24 09/05/20 07:00 BP 86/66 09/05/20 07:00 Pulse Ox 100 09/05/20 07:00 Intake & Output 09/04/20 09/05/20 09/05/20 18:59 06:59 18:59 Intake Total 2080.804 2049.267 190.793 Output Total 2340 1425 75 Balance -259.196 624.267 115.793 Weight 100.1 kg 104.1 kg Intake: IV 759 1267 66 0.9 240 1195 60 Acyclovir Sodium 1,000 mg 250 In Sodium Chloride 0.9% 250 ml @ 270 mls/hr IVPB Q8HR ANA Rx#:[id number] Normal Saline Pressure 69 72 6 Bag Piperacillin-Tazobactam 3 100 .375 gm In Sodium Chloride 0.9% 100 ml @ 25 mls/hr IVPB Q12HR ANA Rx #:[id number] Piperacillin-Tazobactam 3 100 .375 gm In Sodium Chloride 0.9% 100 ml @ 25 mls/hr IVPB Q8HR ANA Rx# :[id number] Intake, IV Titration 871.804 622.267 124.793 Amount Diltiazem 125 mg In 250 118.75 Sodium Chloride 0.9% 100 ml @ 15 MG/HR 15 mls/hr IV .Q8H20M ANA Rx#: [id number] Insulin Regular 100 unit 117.009 134.448 7.676 In Sodium Chloride 0.9% 100 ml @ Per Protocol IV .Q0M ANA Rx#:[id number] Norepinephrine 32 mg In 11.902 Sodium Chloride 0.9% 218 ml @ 0.06 MCG/KG/MIN 2. 776 mls/hr IV .Q24H ANA Rx#:[id number] propofoL 1,000 mg In 492.893 369.069 117.117 Empty Bag 1 bag @ Titrate IV .Q0M ANA Rx#: [id number] Oral 60 Tube Feeding 240 160 Other 150 Output: Urine 2340 1425 75 Other: Voiding Method Indwelling Catheter Indwelling Catheter # Voids 350 ABP, PAP, CO, CI - Last Documented Arterial Blood Pressure 122/55 - Labs CBC & Chem 7: 09/05/20 04:10 09/05/20 04:10 Labs: Abnormal Lab Results - Last 24 Hours (Table) 09/04/20 09/04/20 09/04/20 Range/Units 05:00 09:33 10:01 WBC (3.8-10.6) k/uL RBC (4.30-5.90) m/uL Hgb (13.0-17.5) gm/dL Hct (39.0-53.0) % MCV (80.0-100.0) fL MCH (25.0-35.0) pg RDW (11.5-15.5) % Plt Count (150-450) k/uL Blast Cells % % Neutrophils # (Manual) (1.3-7.7) k/uL Monocytes # (Manual) (0-1.0) k/uL Myelocytes # (Manual) (0) k/uL Blast Cells # (Man) (0) k/uL Haptoglobin 383.0 H (31.2-198.0) mg/dL PT (9.0-12.0) sec INR (<1.2) APTT (22.0-30.0) sec Fibrinogen (200-500) mg/dL ABG pH (7.35-7.45) ABG pCO2 (35-45) mmHg ABG pO2 (83-108) mmHg ABG O2 Saturation (94-97) % Sodium (137-145) mmol/L Potassium (3.5-5.1) mmol/L Chloride (98-107) mmol/L BUN (9-20) mg/dL Glucose (74-99) mg/dL POC Glucose (mg/dL) 150 H 136 H (75-99) mg/dL Uric Acid (3.5-8.5) mg/dL Calcium (8.4-10.2) mg/dL Phosphorus (2.5-4.5) mg/dL Magnesium (1.6-2.3) mg/dL AST (17-59) U/L Lactate Dehydrogenase (313-618) U/L Total Protein (6.3-8.2) g/dL Albumin (3.5-5.0) g/dL 09/04/20 09/04/20 09/04/20 Range/Units 11:06 11:56 12:59 WBC (3.8-10.6) k/uL RBC (4.30-5.90) m/uL Hgb (13.0-17.5) gm/dL Hct (39.0-53.0) % MCV (80.0-100.0) fL MCH (25.0-35.0) pg RDW (11.5-15.5) % Plt Count (150-450) k/uL Blast Cells % % Neutrophils # (Manual) (1.3-7.7) k/uL Monocytes # (Manual) (0-1.0) k/uL Myelocytes # (Manual) (0) k/uL Blast Cells # (Man) (0) k/uL Haptoglobin (31.2-198.0) mg/dL PT (9.0-12.0) sec INR (<1.2) APTT (22.0-30.0) sec Fibrinogen (200-500) mg/dL ABG pH (7.35-7.45) ABG pCO2 (35-45) mmHg ABG pO2 (83-108) mmHg ABG O2 Saturation (94-97) % Sodium (137-145) mmol/L Potassium (3.5-5.1) mmol/L Chloride (98-107) mmol/L BUN (9-20) mg/dL Glucose (74-99) mg/dL POC Glucose (mg/dL) 128 H 117 H 207 H (75-99) mg/dL Uric Acid (3.5-8.5) mg/dL Calcium (8.4-10.2) mg/dL Phosphorus (2.5-4.5) mg/dL Magnesium (1.6-2.3) mg/dL AST (17-59) U/L Lactate Dehydrogenase (313-618) U/L Total Protein (6.3-8.2) g/dL Albumin (3.5-5.0) g/dL 09/04/20 09/04/20 09/04/20 Range/Units 13:24 14:14 15:02 WBC (3.8-10.6) k/uL RBC (4.30-5.90) m/uL Hgb (13.0-17.5) gm/dL Hct (39.0-53.0) % MCV (80.0-100.0) fL MCH (25.0-35.0) pg RDW (11.5-15.5) % Plt Count (150-450) k/uL Blast Cells % % Neutrophils # (Manual) (1.3-7.7) k/uL Monocytes # (Manual) (0-1.0) k/uL Myelocytes # (Manual) (0) k/uL Blast Cells # (Man) (0) k/uL Haptoglobin (31.2-198.0) mg/dL PT (9.0-12.0) sec INR (<1.2) APTT (22.0-30.0) sec Fibrinogen (200-500) mg/dL ABG pH (7.35-7.45) ABG pCO2 (35-45) mmHg ABG pO2 (83-108) mmHg ABG O2 Saturation (94-97) % Sodium (137-145) mmol/L Potassium (3.5-5.1) mmol/L Chloride (98-107) mmol/L BUN (9-20) mg/dL Glucose (74-99) mg/dL POC Glucose (mg/dL) 205 H 173 H 174 H (75-99) mg/dL Uric Acid (3.5-8.5) mg/dL Calcium (8.4-10.2) mg/dL Phosphorus (2.5-4.5) mg/dL Magnesium (1.6-2.3) mg/dL AST (17-59) U/L Lactate Dehydrogenase (313-618) U/L Total Protein (6.3-8.2) g/dL Albumin (3.5-5.0) g/dL 09/04/20 09/04/20 09/04/20 Range/Units 16:10 17:16 18:00 WBC (3.8-10.6) k/uL RBC (4.30-5.90) m/uL Hgb (13.0-17.5) gm/dL Hct (39.0-53.0) % MCV (80.0-100.0) fL MCH (25.0-35.0) pg RDW (11.5-15.5) % Plt Count (150-450) k/uL Blast Cells % % Neutrophils # (Manual) (1.3-7.7) k/uL Monocytes # (Manual) (0-1.0) k/uL Myelocytes # (Manual) (0) k/uL Blast Cells # (Man) (0) k/uL Haptoglobin (31.2-198.0) mg/dL PT (9.0-12.0) sec INR (<1.2) APTT (22.0-30.0) sec Fibrinogen (200-500) mg/dL ABG pH (7.35-7.45) ABG pCO2 (35-45) mmHg ABG pO2 (83-108) mmHg ABG O2 Saturation (94-97) % Sodium (137-145) mmol/L Potassium (3.5-5.1) mmol/L Chloride (98-107) mmol/L BUN (9-20) mg/dL Glucose (74-99) mg/dL POC Glucose (mg/dL) 175 H 144 H 143 H (75-99) mg/dL Uric Acid (3.5-8.5) mg/dL Calcium (8.4-10.2) mg/dL Phosphorus (2.5-4.5) mg/dL Magnesium (1.6-2.3) mg/dL AST (17-59) U/L Lactate Dehydrogenase (313-618) U/L Total Protein (6.3-8.2) g/dL Albumin (3.5-5.0) g/dL 09/04/20 09/04/20 09/04/20 Range/Units 19:03 20:27 21:05 WBC (3.8-10.6) k/uL RBC (4.30-5.90) m/uL Hgb (13.0-17.5) gm/dL Hct (39.0-53.0) % MCV (80.0-100.0) fL MCH (25.0-35.0) pg RDW (11.5-15.5) % Plt Count (150-450) k/uL Blast Cells % % Neutrophils # (Manual) (1.3-7.7) k/uL Monocytes # (Manual) (0-1.0) k/uL Myelocytes # (Manual) (0) k/uL Blast Cells # (Man) (0) k/uL Haptoglobin (31.2-198.0) mg/dL PT (9.0-12.0) sec INR (<1.2) APTT (22.0-30.0) sec Fibrinogen (200-500) mg/dL ABG pH (7.35-7.45) ABG pCO2 (35-45) mmHg ABG pO2 (83-108) mmHg ABG O2 Saturation (94-97) % Sodium (137-145) mmol/L Potassium (3.5-5.1) mmol/L Chloride (98-107) mmol/L BUN (9-20) mg/dL Glucose (74-99) mg/dL POC Glucose (mg/dL) 142 H 122 H 120 H (75-99) mg/dL Uric Acid (3.5-8.5) mg/dL Calcium (8.4-10.2) mg/dL Phosphorus (2.5-4.5) mg/dL Magnesium (1.6-2.3) mg/dL AST (17-59) U/L Lactate Dehydrogenase (313-618) U/L Total Protein (6.3-8.2) g/dL Albumin (3.5-5.0) g/dL 09/04/20 09/04/20 09/05/20 Range/Units 22:02 22:56 00:02 WBC (3.8-10.6) k/uL RBC (4.30-5.90) m/uL Hgb (13.0-17.5) gm/dL Hct (39.0-53.0) % MCV (80.0-100.0) fL MCH (25.0-35.0) pg RDW (11.5-15.5) % Plt Count (150-450) k/uL Blast Cells % % Neutrophils # (Manual) (1.3-7.7) k/uL Monocytes # (Manual) (0-1.0) k/uL Myelocytes # (Manual) (0) k/uL Blast Cells # (Man) (0) k/uL Haptoglobin (31.2-198.0) mg/dL PT (9.0-12.0) sec INR (<1.2) APTT (22.0-30.0) sec Fibrinogen (200-500) mg/dL ABG pH (7.35-7.45) ABG pCO2 (35-45) mmHg ABG pO2 (83-108) mmHg ABG O2 Saturation (94-97) % Sodium (137-145) mmol/L Potassium (3.5-5.1) mmol/L Chloride (98-107) mmol/L BUN (9-20) mg/dL Glucose (74-99) mg/dL POC Glucose (mg/dL) 111 H 165 H 141 H (75-99) mg/dL Uric Acid (3.5-8.5) mg/dL Calcium (8.4-10.2) mg/dL Phosphorus (2.5-4.5) mg/dL Magnesium (1.6-2.3) mg/dL AST (17-59) U/L Lactate Dehydrogenase (313-618) U/L Total Protein (6.3-8.2) g/dL Albumin (3.5-5.0) g/dL 09/05/20 09/05/20 09/05/20 Range/Units 01:14 02:17 03:06 WBC (3.8-10.6) k/uL RBC (4.30-5.90) m/uL Hgb (13.0-17.5) gm/dL Hct (39.0-53.0) % MCV (80.0-100.0) fL MCH (25.0-35.0) pg RDW (11.5-15.5) % Plt Count (150-450) k/uL Blast Cells % % Neutrophils # (Manual) (1.3-7.7) k/uL Monocytes # (Manual) (0-1.0) k/uL Myelocytes # (Manual) (0) k/uL Blast Cells # (Man) (0) k/uL Haptoglobin (31.2-198.0) mg/dL PT (9.0-12.0) sec INR (<1.2) APTT (22.0-30.0) sec Fibrinogen (200-500) mg/dL ABG pH (7.35-7.45) ABG pCO2 (35-45) mmHg ABG pO2 (83-108) mmHg ABG O2 Saturation (94-97) % Sodium (137-145) mmol/L Potassium (3.5-5.1) mmol/L Chloride (98-107) mmol/L BUN (9-20) mg/dL Glucose (74-99) mg/dL POC Glucose (mg/dL) 137 H 178 H 167 H (75-99) mg/dL Uric Acid (3.5-8.5) mg/dL Calcium (8.4-10.2) mg/dL Phosphorus (2.5-4.5) mg/dL Magnesium (1.6-2.3) mg/dL AST (17-59) U/L Lactate Dehydrogenase (313-618) U/L Total Protein (6.3-8.2) g/dL Albumin (3.5-5.0) g/dL 09/05/20 09/05/20 09/05/20 Range/Units 04:09 04:10 04:10 WBC 33.7 H (3.8-10.6) k/uL RBC 1.91 L (4.30-5.90) m/uL Hgb 7.1 L (13.0-17.5) gm/dL Hct 19.3 L* (39.0-53.0) % MCV 101.2 H (80.0-100.0) fL MCH 37.1 H (25.0-35.0) pg RDW 18.3 H (11.5-15.5) % Plt Count 74 L (150-450) k/uL Blast Cells % 44 H* % Neutrophils # (Manual) 14.40 H (1.3-7.7) k/uL Monocytes # (Manual) 1.01 H (0-1.0) k/uL Myelocytes # (Manual) 1.69 H (0) k/uL Blast Cells # (Man) 14.83 H (0) k/uL Haptoglobin (31.2-198.0) mg/dL PT 13.0 H (9.0-12.0) sec INR 1.3 H (<1.2) APTT 20.8 L (22.0-30.0) sec Fibrinogen 158 L (200-500) mg/dL ABG pH (7.35-7.45) ABG pCO2 (35-45) mmHg ABG pO2 (83-108) mmHg ABG O2 Saturation (94-97) % Sodium (137-145) mmol/L Potassium (3.5-5.1) mmol/L Chloride (98-107) mmol/L BUN (9-20) mg/dL Glucose (74-99) mg/dL POC Glucose (mg/dL) 165 H (75-99) mg/dL Uric Acid (3.5-8.5) mg/dL Calcium (8.4-10.2) mg/dL Phosphorus (2.5-4.5) mg/dL Magnesium (1.6-2.3) mg/dL AST (17-59) U/L Lactate Dehydrogenase (313-618) U/L Total Protein (6.3-8.2) g/dL Albumin (3.5-5.0) g/dL 09/05/20 09/05/20 09/05/20 Range/Units 04:10 05:22 05:30 WBC (3.8-10.6) k/uL RBC (4.30-5.90) m/uL Hgb (13.0-17.5) gm/dL Hct (39.0-53.0) % MCV (80.0-100.0) fL MCH (25.0-35.0) pg RDW (11.5-15.5) % Plt Count (150-450) k/uL Blast Cells % % Neutrophils # (Manual) (1.3-7.7) k/uL Monocytes # (Manual) (0-1.0) k/uL Myelocytes # (Manual) (0) k/uL Blast Cells # (Man) (0) k/uL Haptoglobin (31.2-198.0) mg/dL PT (9.0-12.0) sec INR (<1.2) APTT (22.0-30.0) sec Fibrinogen (200-500) mg/dL ABG pH 7.46 H (7.35-7.45) ABG pCO2 32 L (35-45) mmHg ABG pO2 121 H (83-108) mmHg ABG O2 Saturation 98.7 H (94-97) % Sodium 147 H (137-145) mmol/L Potassium 5.2 H (3.5-5.1) mmol/L Chloride 121 H (98-107) mmol/L BUN 44 H (9-20) mg/dL Glucose 157 H (74-99) mg/dL POC Glucose (mg/dL) 151 H (75-99) mg/dL Uric Acid 3.1 L (3.5-8.5) mg/dL Calcium 7.3 L (8.4-10.2) mg/dL Phosphorus 5.0 H (2.5-4.5) mg/dL Magnesium 2.9 H (1.6-2.3) mg/dL AST 80 H (17-59) U/L Lactate Dehydrogenase 67852 H (313-618) U/L Total Protein 4.9 L (6.3-8.2) g/dL Albumin 2.6 L (3.5-5.0) g/dL 09/05/20 09/05/20 09/05/20 Range/Units 06:15 07:05 08:02 WBC (3.8-10.6) k/uL RBC (4.30-5.90) m/uL Hgb (13.0-17.5) gm/dL Hct (39.0-53.0) % MCV (80.0-100.0) fL MCH (25.0-35.0) pg RDW (11.5-15.5) % Plt Count (150-450) k/uL Blast Cells % % Neutrophils # (Manual) (1.3-7.7) k/uL Monocytes # (Manual) (0-1.0) k/uL Myelocytes # (Manual) (0) k/uL Blast Cells # (Man) (0) k/uL Haptoglobin (31.2-198.0) mg/dL PT (9.0-12.0) sec INR (<1.2) APTT (22.0-30.0) sec Fibrinogen (200-500) mg/dL ABG pH (7.35-7.45) ABG pCO2 (35-45) mmHg ABG pO2 (83-108) mmHg ABG O2 Saturation (94-97) % Sodium (137-145) mmol/L Potassium (3.5-5.1) mmol/L Chloride (98-107) mmol/L BUN (9-20) mg/dL Glucose (74-99) mg/dL POC Glucose (mg/dL) 140 H 129 H 174 H (75-99) mg/dL Uric Acid (3.5-8.5) mg/dL Calcium (8.4-10.2) mg/dL Phosphorus (2.5-4.5) mg/dL Magnesium (1.6-2.3) mg/dL AST (17-59) U/L Lactate Dehydrogenase (313-618) U/L Total Protein (6.3-8.2) g/dL Albumin (3.5-5.0) g/dL Microbiology - Last 24 Hours (Table) 09/04/20 11:11 Gram Stain - Preliminary Sputum Sputum Culture - Preliminary 09/04/20 11:11 Urine Culture - Preliminary Urine,Catheterized 08/31/20 10:30 Fungal Culture - Preliminary Bronchial Washings - Random [place] albicans
--- NOTE | 2020-09-05 09:24 | P.CONS ---
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 setting patient has been electively admitted to the hospital on 08/16/2020 for initiation of chemotherapy, patient did have developed this symptom of increasing shortness of breath with a chest x-ray did show COPD with intermittent development of diffuse interstitial pattern: For CHF versus attention pneumonia or atypical pneumonia patient to did have progressive worsening of his shortness of breath for the patient has been transferred out of the ICU patient ended up getting intubated on 08/31/2020 and it patient is status post bronchoscopy completed by pulmonary service cultures are showing [place] albicans patient did have a low-grade fever 102 Fahrenheit on September 01 however he started fever yesterday afternoon a temperature of 102F and a fever 100.5F and this only that has prompted this infectious disease consultation, patient was leukopenic on admission however while she is currently elevated at 36,000, patient had did have a normal kidney function and pro-calcitonin slightly elevated, 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 patient is currently treated with Zosyn, eraxis with acyclovir were added today infectious disease was consulted for further management most information has been obtained from review the chart and talking to nursing staff as the patient is currently intubated on the vent and reported historysignificant purulent secretion through the ED has been noticed patient has been tolerating his tube feeds and no diarrhea has been reported and the patient's currently not on any pressor support Review of Systems Positive points has been mentioned in HPI complete review could not be obtained because of his underlying mental status Past Medical History Past Medical History: Atrial Fibrillation, Cancer, CVA/TIA, Diabetes Mellitus, Hyperlipidemia, Hypertension, Osteoarthritis (OA), Prostate Disorder, Skin Disorder, Sleep Apnea/CPAP/BIPAP Additional Past Medical History / Comment(s): CHILDHOOD POLIO, TIA -no residual effects, psoriasis, has cpap machine, neutropenia, APL diagnosed 08/14/20 History of Any Multi-Drug Resistant Organisms: None Reported Past Surgical History: Cardiac Ablation, Heart Catheterization, Tonsillectomy Additional Past Surgical History / Comment(s): HX OF EPIDURALS FOR PAIN, MARYA CATARACTS, cardioversion x2 Past Anesthesia/Blood Transfusion Reactions: No Reported Reaction Past Psychological History: No Psychological Hx Reported Smoking Status: Never smoker Past Alcohol Use History: None Reported Past Drug Use History: None Reported - Past Family History Father Family Medical History: Cancer Additional Family Medical History / Comment(s): bladder cancer Mother Family Medical History: Myocardial Infarction (AR) Medications and Allergies Home Medications Medication Instructions Recorded Confirmed Type Alfuzosin HCl [Alfuzosin HCl ER] 10 mg PO BID 01/24/17 08/24/20 History Atorvastatin Calcium [Lipitor] 10 mg PO HS 01/24/17 08/24/20 History Gabapentin [Neurontin] 100 mg PO TID 01/24/17 08/24/20 History metFORMIN HCL [Glucophage] 500 mg PO W/BRKFST 08/31/18 08/24/20 History Metoprolol Tartrate [Lopressor] 100 mg PO BID 01/16/19 08/24/20 History Warfarin [Coumadin] 2.5 mg PO MOWEFR@199901/16/19 08/24/20 History Warfarin [Coumadin] 5 mg PO SUTUTHSA@199901/16/19 08/24/20 History Dronedarone [Multaq] 400 mg PO BID #30 tab 03/18/20 08/24/20 Rx Hydrocodone/Acetaminophen [[place] 1 tab PO QID PRN 08/11/20 08/24/20 History 10-325] Pantoprazole [Protonix] 40 mg PO HS 08/11/20 08/24/20 History amLODIPine [Norvasc] 10 mg PO HS 08/11/20 08/24/20 History metFORMIN HCL [Glucophage] 1,000 mg PO W/SUPPER 08/11/20 08/24/20 History Furosemide [Lasix] 40 mg PO BID@0900,1600 #60 tab 08/14/20 08/24/20 Rx Potassium Chloride ER [K-Dur 20] 20 meq PO HS 08/24/20 08/24/20 History Allergies Allergy/AdvReac Type Severity Reaction Status Date / Time No Known Allergies Allergy Verified 08/24/20 18:17 Physical Exam Vitals: Vital Signs Temp Pulse Resp BP Pulse Ox 09/04/20 14:00 105 H 24 89/58 97 09/04/20 13:30 103 H 20 96 09/04/20 13:00 101 H 19 98 09/04/20 12:30 121 H 16 98 09/04/20 12:00 100.2 F H 103 H 20 98 09/04/20 11:30 107 H 24 98 09/04/20 11:00 101 H 23 98 09/04/20 10:30 97 10 L 97 09/04/20 10:00 109 H 19 98 09/04/20 09:30 122 H 20 99 09/04/20 09:00 142 H 20 98 09/04/20 08:30 135 H 26 H 98 09/04/20 08:00 100.6 F H 137 H 16 97 09/04/20 07:30 125 H 23 97 09/04/20 07:00 129 H 24 98 09/04/20 06:30 130 H 24 98 09/04/20 06:00 133 H 96 09/04/20 05:30 141 H 96 09/04/20 05:00 126 H 24 96 09/04/20 04:30 124 H 99 09/04/20 04:00 146 H 24 99 09/04/20 03:55 24 09/04/20 03:30 111 H 98 09/04/20 03:00 99.7 F H 116 H 24 99 09/04/20 02:30 110 H 99 09/04/20 02:00 109 H 28 H 99 09/04/20 01:30 109 H 99 09/04/20 01:00 124 H 25 H 98 09/04/20 00:30 110 H 98 09/04/20 00:00 100.5 F H 112 H 28 H 98 09/03/20 23:30 128 H 98 09/03/20 23:00 115 H 24 97 09/03/20 22:30 113 H 24 91/55 97 09/03/20 22:00 113 H 24 97 09/03/20 21:30 112 H 24 97 09/03/20 21:00 100.5 F H 108 H 27 H 98 09/03/20 20:30 105 H 24 98 09/03/20 20:00 101 F H 105 H 24 98 09/03/20 19:30 118 H 24 98 09/03/20 19:00 101.3 F H 125 H 24 105/74 98 09/03/20 18:30 110 H 24 104/74 98 09/03/20 18:00 109 H 23 92/58 98 09/03/20 17:30 113 H 24 98 09/03/20 17:00 120 H 20 95/58 98 09/03/20 16:30 109 H 25 H 98 09/03/20 16:00 101.2 F H 109 H 24 98/52 98 09/03/20 15:32 24 09/03/20 15:30 165 H 21 98 09/03/20 15:04 97 09/03/20 15:00 102.2 F H 146 H 24 89/55 98 Intake and Output 09/03/20 09/04/20 09/04/20 22:59 06:59 14:59 Intake Total 4732.201 0621.576 1099.855 Output Total 090 954 7636 Balance 290.317 350.576 -795.145 Intake: IV 409 624 325 0.9 270 600 180 Normal Saline Pressure 39 24 45 Bag Piperacillin-Tazobactam 3 100 100 .375 gm In Sodium Chloride 0.9% 100 ml @ 25 mls/hr IVPB Q12HR ANA Rx #:[id number] Intake, IV Titration 506.317 411.576 494.855 Amount Diltiazem 125 mg In 99.25 125 125 Sodium Chloride 0.9% 100 ml @ 15 MG/HR 15 mls/hr IV .Q8H20M ANA Rx#: [id number] Insulin Regular 100 unit 101.000 83.442 76.962 In Sodium Chloride 0.9% 100 ml @ Per Protocol IV .Q0M ANA Rx#:[id number] Norepinephrine 32 mg In 15.846 15.546 Sodium Chloride 0.9% 218 ml @ 0.06 MCG/KG/MIN 2. 776 mls/hr IV .Q24H ANA Rx#:[id number] propofoL 1,000 mg In 290.221 187.588 292.893 Empty Bag 1 bag @ Titrate IV .Q0M ANA Rx#: [id number] Oral 60 Tube Feeding 140 160 160 Other 60 30 60 Output: Urine 300 131 9273 Other: Voiding Method Indwelling Catheter Indwelling Catheter Indwelling Catheter # Voids 350 Weight 100.1 kg 100.1 kg ABP, PAP, CO, CI - Last 8 Hours Arterial Blood Pressure 106/52 Arterial Blood Pressure 104/53 Arterial Blood Pressure 94/50 Arterial Blood Pressure 111/52 Arterial Blood Pressure 107/54 Arterial Blood Pressure 93/48 Arterial Blood Pressure 126/57 Arterial Blood Pressure 110/52 Arterial Blood Pressure 119/61 Arterial Blood Pressure 136/55 Arterial Blood Pressure 121/55 Arterial Blood Pressure 111/55 Arterial Blood Pressure 117/55 Arterial Blood Pressure 105/52 Arterial Blood Pressure 109/57 GENERAL DESCRIPTION: Elderly male intubated on the vent. No tachypnea or accessory muscle of respiration use. HEENT: Shows Pallor , no scleral icterus. Oral mucous membrane is dry. Patient is orally intubated NECK: Trachea central, no thyromegaly. LUNGS: Unlabored breathing. Decreased breath sounds at the bases. No wheeze or crackle. HEART: S1, S2, regular rate and rhythm. No loud murmur ABDOMEN: Soft, no tenderness , guarding or rigidity, no organomegaly EXTREMITIES: No edema of feet. SKIN: No rash, no masses palpable. NEUROLOGICAL: The patient is sedated on the vent Results CBC & Chem 7: 09/05/20 04:10 09/05/20 04:10 Labs: Abnormal Lab Results - Last 24 Hours (Table) 09/03/20 09/03/20 09/03/20 Range/Units 14:58 16:56 19:03 WBC (3.8-10.6) k/uL RBC (4.30-5.90) m/uL Hgb (13.0-17.5) gm/dL Hct (39.0-53.0) % MCH (25.0-35.0) pg RDW (11.5-15.5) % Plt Count (150-450) k/uL Blast Cells % % Lymphocytes # (Manual) (1.0-4.8) k/uL Monocytes # (Manual) (0-1.0) k/uL Myelocytes # (Manual) (0) k/uL Blast Cells # (Man) (0) k/uL Nucleated RBCs (0-0) /100 WBC Haptoglobin (31.2-198.0) mg/dL PT (9.0-12.0) sec INR (<1.2) APTT (22.0-30.0) sec ABG Total CO2 (19-24) mmol/L Chloride (98-107) mmol/L BUN (9-20) mg/dL Glucose (74-99) mg/dL POC Glucose (mg/dL) 146 H 152 H 170 H (75-99) mg/dL Uric Acid (3.5-8.5) mg/dL Calcium (8.4-10.2) mg/dL Phosphorus (2.5-4.5) mg/dL Magnesium (1.6-2.3) mg/dL AST (17-59) U/L Lactate Dehydrogenase (313-618) U/L Total Protein (6.3-8.2) g/dL Albumin (3.5-5.0) g/dL 09/03/20 09/03/20 09/03/20 Range/Units 21:04 22:03 23:53 WBC (3.8-10.6) k/uL RBC (4.30-5.90) m/uL Hgb (13.0-17.5) gm/dL Hct (39.0-53.0) % MCH (25.0-35.0) pg RDW (11.5-15.5) % Plt Count (150-450) k/uL Blast Cells % % Lymphocytes # (Manual) (1.0-4.8) k/uL Monocytes # (Manual) (0-1.0) k/uL Myelocytes # (Manual) (0) k/uL Blast Cells # (Man) (0) k/uL Nucleated RBCs (0-0) /100 WBC Haptoglobin (31.2-198.0) mg/dL PT (9.0-12.0) sec INR (<1.2) APTT (22.0-30.0) sec ABG Total CO2 (19-24) mmol/L Chloride (98-107) mmol/L BUN (9-20) mg/dL Glucose (74-99) mg/dL POC Glucose (mg/dL) 166 H 149 H 157 H (75-99) mg/dL Uric Acid (3.5-8.5) mg/dL Calcium (8.4-10.2) mg/dL Phosphorus (2.5-4.5) mg/dL Magnesium (1.6-2.3) mg/dL AST (17-59) U/L Lactate Dehydrogenase (313-618) U/L Total Protein (6.3-8.2) g/dL Albumin (3.5-5.0) g/dL 09/04/20 09/04/20 09/04/20 Range/Units 02:02 03:22 04:10 WBC (3.8-10.6) k/uL RBC (4.30-5.90) m/uL Hgb (13.0-17.5) gm/dL Hct (39.0-53.0) % MCH (25.0-35.0) pg RDW (11.5-15.5) % Plt Count (150-450) k/uL Blast Cells % % Lymphocytes # (Manual) (1.0-4.8) k/uL Monocytes # (Manual) (0-1.0) k/uL Myelocytes # (Manual) (0) k/uL Blast Cells # (Man) (0) k/uL Nucleated RBCs (0-0) /100 WBC Haptoglobin (31.2-198.0) mg/dL PT (9.0-12.0) sec INR (<1.2) APTT (22.0-30.0) sec ABG Total CO2 (19-24) mmol/L Chloride (98-107) mmol/L BUN (9-20) mg/dL Glucose (74-99) mg/dL POC Glucose (mg/dL) 138 H 207 H 206 H (75-99) mg/dL Uric Acid (3.5-8.5) mg/dL Calcium (8.4-10.2) mg/dL Phosphorus (2.5-4.5) mg/dL Magnesium (1.6-2.3) mg/dL AST (17-59) U/L Lactate Dehydrogenase (313-618) U/L Total Protein (6.3-8.2) g/dL Albumin (3.5-5.0) g/dL 09/04/20 09/04/20 09/04/20 Range/Units 05:00 05:00 05:00 WBC (3.8-10.6) k/uL RBC (4.30-5.90) m/uL Hgb (13.0-17.5) gm/dL Hct (39.0-53.0) % MCH (25.0-35.0) pg RDW (11.5-15.5) % Plt Count (150-450) k/uL Blast Cells % % Lymphocytes # (Manual) (1.0-4.8) k/uL Monocytes # (Manual) (0-1.0) k/uL Myelocytes # (Manual) (0) k/uL Blast Cells # (Man) (0) k/uL Nucleated RBCs (0-0) /100 WBC Haptoglobin 383.0 H (31.2-198.0) mg/dL PT 12.1 H (9.0-12.0) sec INR 1.2 H (<1.2) APTT 20.7 L (22.0-30.0) sec ABG Total CO2 (19-24) mmol/L Chloride 118 H (98-107) mmol/L BUN 47 H (9-20) mg/dL Glucose 181 H (74-99) mg/dL POC Glucose (mg/dL) (75-99) mg/dL Uric Acid 2.6 L (3.5-8.5) mg/dL Calcium 7.3 L (8.4-10.2) mg/dL Phosphorus 4.6 H (2.5-4.5) mg/dL Magnesium 3.0 H (1.6-2.3) mg/dL AST 73 H (17-59) U/L Lactate Dehydrogenase 07623 H (313-618) U/L Total Protein 5.3 L (6.3-8.2) g/dL Albumin 2.7 L (3.5-5.0) g/dL 09/04/20 09/04/20 09/04/20 Range/Units 05:00 05:12 05:12 WBC 36.9 H (3.8-10.6) k/uL RBC 2.04 L (4.30-5.90) m/uL Hgb 7.4 L (13.0-17.5) gm/dL Hct 20.2 L (39.0-53.0) % MCH 36.1 H (25.0-35.0) pg RDW 18.6 H (11.5-15.5) % Plt Count 76 L (150-450) k/uL Blast Cells % 46 H* % Lymphocytes # (Manual) 5.17 H (1.0-4.8) k/uL Monocytes # (Manual) 1.48 H (0-1.0) k/uL Myelocytes # (Manual) 5.90 H (0) k/uL Blast Cells # (Man) 16.97 H (0) k/uL Nucleated RBCs 2 H (0-0) /100 WBC Haptoglobin (31.2-198.0) mg/dL PT (9.0-12.0) sec INR (<1.2) APTT (22.0-30.0) sec ABG Total CO2 25 H (19-24) mmol/L Chloride (98-107) mmol/L BUN (9-20) mg/dL Glucose (74-99) mg/dL POC Glucose (mg/dL) 191 H (75-99) mg/dL Uric Acid (3.5-8.5) mg/dL Calcium (8.4-10.2) mg/dL Phosphorus (2.5-4.5) mg/dL Magnesium (1.6-2.3) mg/dL AST (17-59) U/L Lactate Dehydrogenase (313-618) U/L Total Protein (6.3-8.2) g/dL Albumin (3.5-5.0) g/dL 09/04/20 09/04/20 09/04/20 Range/Units 05:56 07:04 07:55 WBC (3.8-10.6) k/uL RBC (4.30-5.90) m/uL Hgb (13.0-17.5) gm/dL Hct (39.0-53.0) % MCH (25.0-35.0) pg RDW (11.5-15.5) % Plt Count (150-450) k/uL Blast Cells % % Lymphocytes # (Manual) (1.0-4.8) k/uL Monocytes # (Manual) (0-1.0) k/uL Myelocytes # (Manual) (0) k/uL Blast Cells # (Man) (0) k/uL Nucleated RBCs (0-0) /100 WBC Haptoglobin (31.2-198.0) mg/dL PT (9.0-12.0) sec INR (<1.2) APTT (22.0-30.0) sec ABG Total CO2 (19-24) mmol/L Chloride (98-107) mmol/L BUN (9-20) mg/dL Glucose (74-99) mg/dL POC Glucose (mg/dL) 196 H 167 H 174 H (75-99) mg/dL Uric Acid (3.5-8.5) mg/dL Calcium (8.4-10.2) mg/dL Phosphorus (2.5-4.5) mg/dL Magnesium (1.6-2.3) mg/dL AST (17-59) U/L Lactate Dehydrogenase (313-618) U/L Total Protein (6.3-8.2) g/dL Albumin (3.5-5.0) g/dL 09/04/20 09/04/20 09/04/20 Range/Units 09:33 10:01 11:06 WBC (3.8-10.6) k/uL RBC (4.30-5.90) m/uL Hgb (13.0-17.5) gm/dL Hct (39.0-53.0) % MCH (25.0-35.0) pg RDW (11.5-15.5) % Plt Count (150-450) k/uL Blast Cells % % Lymphocytes # (Manual) (1.0-4.8) k/uL Monocytes # (Manual) (0-1.0) k/uL Myelocytes # (Manual) (0) k/uL Blast Cells # (Man) (0) k/uL Nucleated RBCs (0-0) /100 WBC Haptoglobin (31.2-198.0) mg/dL PT (9.0-12.0) sec INR (<1.2) APTT (22.0-30.0) sec ABG Total CO2 (19-24) mmol/L Chloride (98-107) mmol/L BUN (9-20) mg/dL Glucose (74-99) mg/dL POC Glucose (mg/dL) 150 H 136 H 128 H (75-99) mg/dL Uric Acid (3.5-8.5) mg/dL Calcium (8.4-10.2) mg/dL Phosphorus (2.5-4.5) mg/dL Magnesium (1.6-2.3) mg/dL AST (17-59) U/L Lactate Dehydrogenase (313-618) U/L Total Protein (6.3-8.2) g/dL Albumin (3.5-5.0) g/dL 09/04/20 09/04/20 09/04/20 Range/Units 11:56 12:59 13:24 WBC (3.8-10.6) k/uL RBC (4.30-5.90) m/uL Hgb (13.0-17.5) gm/dL Hct (39.0-53.0) % MCH (25.0-35.0) pg RDW (11.5-15.5) % Plt Count (150-450) k/uL Blast Cells % % Lymphocytes # (Manual) (1.0-4.8) k/uL Monocytes # (Manual) (0-1.0) k/uL Myelocytes # (Manual) (0) k/uL Blast Cells # (Man) (0) k/uL Nucleated RBCs (0-0) /100 WBC Haptoglobin (31.2-198.0) mg/dL PT (9.0-12.0) sec INR (<1.2) APTT (22.0-30.0) sec ABG Total CO2 (19-24) mmol/L Chloride (98-107) mmol/L BUN (9-20) mg/dL Glucose (74-99) mg/dL POC Glucose (mg/dL) 117 H 207 H 205 H (75-99) mg/dL Uric Acid (3.5-8.5) mg/dL Calcium (8.4-10.2) mg/dL Phosphorus (2.5-4.5) mg/dL Magnesium (1.6-2.3) mg/dL AST (17-59) U/L Lactate Dehydrogenase (313-618) U/L Total Protein (6.3-8.2) g/dL Albumin (3.5-5.0) g/dL 09/04/20 Range/Units 14:14 WBC (3.8-10.6) k/uL RBC (4.30-5.90) m/uL Hgb (13.0-17.5) gm/dL Hct (39.0-53.0) % MCH (25.0-35.0) pg RDW (11.5-15.5) % Plt Count (150-450) k/uL Blast Cells % % Lymphocytes # (Manual) (1.0-4.8) k/uL Monocytes # (Manual) (0-1.0) k/uL Myelocytes # (Manual) (0) k/uL Blast Cells # (Man) (0) k/uL Nucleated RBCs (0-0) /100 WBC Haptoglobin (31.2-198.0) mg/dL PT (9.0-12.0) sec INR (<1.2) APTT (22.0-30.0) sec ABG Total CO2 (19-24) mmol/L Chloride (98-107) mmol/L BUN (9-20) mg/dL Glucose (74-99) mg/dL POC Glucose (mg/dL) 173 H (75-99) mg/dL Uric Acid (3.5-8.5) mg/dL Calcium (8.4-10.2) mg/dL Phosphorus (2.5-4.5) mg/dL Magnesium (1.6-2.3) mg/dL AST (17-59) U/L Lactate Dehydrogenase (313-618) U/L Total Protein (6.3-8.2) g/dL Albumin (3.5-5.0) g/dL Microbiology - Last 24 Hours (Table) 08/31/20 10:30 Fungal Culture - Preliminary Bronchial Washings - Random [place] albicans 08/31/20 10:30 Bronchial Washings Culture - Final Bronchial Washings - Random Assessment and Plan Assessment: 1- patient is a 75-year-old male with a recent diagnosis of leukemia for the patient had been started on chemotherapy subsequently did have increasing shortness of breath with respiratory failure and ended up getting intubated at the patient is status post bronchoscopy cultures are showing [place] and HSV both of them could be colonizer of the respiratory tract rather than causing pneumonia, with a bacterial culture has been negative so far and no other obvious focus of infection (1) Fever Current Visit: Yes Status: Acute Code(s): R50.9 - FEVER, UNSPECIFIED SNOMED Code(s): 351863909 Plan: 1- patient be continued on Zosyn while waiting for the culture finalized and condition stabilized 2-Eraxis added for possible perforated kidney disease is We will follow on clinical condition and cultures to further adjust medication if needed Thank you for this consultation will follow this patient with you Time with Patient: Greater than 30
[2020-09-05] MEDS ORDERED: ANIDULAFUNGIN 200 MG in SODIUM CHLORIDE 0.9% 200 ML IVPB ONE (09:30)
[2020-09-05 10:13] LABS: Glucose,Whole Blood 193 mg/dL (75-99)
[2020-09-05 11:43] LABS: Glucose,Whole Blood 170 mg/dL (75-99)
--- NOTE | 2020-09-05 11:57 | P.PN ---
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 The patient got transferred to the intensive care unit yesterday because of an acute hypoxic respiratory failu re/acute lung injury with development of bilateral pulmonary infiltrates. Note that the patient was originally hospitalized on 08/24/2024 shortness of breath and difficulty breathing. The patient is known to have chronic atrial fibrillation along with hypertension and hyperlipidemia. He was also being seen by cardiology regarding atrial fibrillation. As the patient developed breath and pulmonary infiltrates and acute hypoxic respiratory failure, the patient a chest to the intensive care unit and he was placed on a BiPAP at a pressure of 14/5 cm of water. FiO2 was as high as 90% and it was being titrated. The patient also had been placed on broad-spectrum antibiotics including IV Zosyn. He was being diuresis with IV Lasix 40 mg every 12 hours. He was on a Cardizem drip at 15 mg an hour to control atrial fibrillation. Remains on Decadron 5 mg IV every 6 hours. The chest x-ray as mentioned shows interval development of bilateral perihilar pulmonary infiltrates which are currently diffuse. The patient demonstrated gradual improvement in the white cell count from a baseline of 0.7 up to 20 and the platelet count is up to 79 with a hemoglobin of 8.0. The patient did not receive any packed RBC transfusions. The differential count shows 46% blasts. Renal function is impaired in the creatinine is 1.47 as the patient is being diuresed. Uric acid level is up to 8.9 with a calcium level of 8.3 and phosphorus level of 5.8 and LDH level was as high as 5244 indicating the possibility of a tumor lysis syndrome. Based on that, the patient was given a dose of respirator he carries yesterday and urine acid level is improved considerably. The echo from last month showed a preserved LV function with an ejection fraction of 6065%. The patient has mild MR, RV is mildly enlarged. Note that the patient over progressively more short of breath and hypoxic. At point, the patient was intubated and placed on a mechanical ventilator. I saw this patient this morning. The patient was already intubated on a mechanical ventilator on assist control mode with a rate of 24 with a tidal volume of 450 and FiO2 of 50% with a PEEP of 10. The blood gas showed a pH of 7.42 with a pC O2 of 40 and pO2 of 104. This was on FiO2 of 60%. The patient was sedated with propofol running at 75 mg per KG per minute. The patient is also on insulin at 5 units an hour for blood sugar control. The patient is on norepinephrine infusion at 0.06 units per KG per minute. Cardizem drip is running at 50 mg an hour in regards to her atrial fibrillation. The heart rate is in the order of 110-120. He is afebrile. Chest x-rays showing bilateral pulmonary infiltrates, stable compared to yesterday. immediately a bronchoscopy was done and the bronchioloalveolar lavage of the right middle lobe was collected as there was a concern of an underlying infection. The patient is currently on IV Zosyn. Lasix was discontinued. On 09/01/2020, the patient is being seen in follow-up in the intensive care unit. The patient remains intubated on a mechanical ventilator. This morning the patient is sedated with propofol at the rate of 45 g per KG per minute. The patient remains on mechanical ventilator on assist control mode at the rate of 24 with a tidal volume of 450 and FiO2 of 40% with a PEEP of 10. Blood gases from today showed a pH of 7.44 with a pCO2 of 38 and pO2 of 152. Chest x-ray still showing diffuse bilateral pulmonary infiltrates slightly improved compared to yesterday. Oxidation is also improved. Based on that, I made recommendations to gradually wean off the PEEP down to 5 cm of water. The patient unfortunately continues to be in atrial fibrillation. The patient is not adequately controlled. The patient is on a Cardizem drip at 15 mg an hour. The patient is also on amiodarone 0.5 mg an hour and the patient is also on metoprolol 100 mg by mouth 3 times a day. The patient is being supported with norepinephrine infusion for blood pressure support at the rate of 0.06 mg per KG per minute. The patient is afebrile. The patient is currently on IV Zosyn. The patient's bronchoscopy and the bronchioloalveolar lavage was done yesterday and the patient does not have any possible microbial growth for now. No fever. No chills. He is receiving daily Lasix 40 mg IV push to maintain adequate fluid balance. In terms of hematologic profile, the white cell count is up to 28 and the patient has 12% blast cells. The platelet count is at 96 with a hemoglobin of 7.3. The patient is currently on Hydrea the patient is also on Decadron. Discussed the case with oncology. We will hold off the ATRA treatment as the patient has gone into differentiation syndrome. On 09/02/2020, I'm seeing the patient for a follow-up in the intensive care unit. The patient remains intubated on a mechanical ventilator. This morning the patient remains on propofol at 50 g per KG per minute. The patient is also on a mechanical ventilator at the rate of 24 with a tidal volume of 450 and FiO2 of 40% with a PEEP of 5. Chest x-ray is showing stable bilateral pulmonary infiltrates without any major change compared to yesterday. Meanwhile the blood gases from today showed a pH of 7.47 with a pCO2 of 34 and pO2 of 110. The patient remains in atrial fibrillation on obviously it has been very difficult to control the rate. He is not a candidate for cardioversion and the patient cannot take any anticoagulants. 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 In terms of his A. fib, the patient remains on a combination of Cardizem drip, amiodarone drip in addition to beta blockers bar examiner. Digoxin was also added by cardiology. Heart rate is ranging between 110 and 130, irregular. He is afebrile. He is covered with Zosyn. The bronchoscopy and bronchial alveolar lavage done earlier yielded no microbial growth. The patient remains on Decadron. The patient remains on Hydrea. LDH is on the rise. White cell count today is at 26.4. Platelet count is at 91. The patient is 54% blasts and off and sleepy is a sign of progression of his underlying AML. The BUN is at 53 with a creatinine of 1.05. The patient was given daily Lasix and the patient's fluid balance has been +7 40 mL over the past 24 hours. The patient is on enteral feeding for nutritional support. The patient is well sedated. A sedation holiday was given today. He was taken off the propofol and subsequently became more tachycardic and restless and asynchronous with a mechanical ventilator and the procedure had to be aborted and the patient was placed back on sedation. On 09/03/2020, seeing this patient for a follow-up in the intensive care unit and the patient is doing poorly. The patient remains sedated on a mechanical ventilator. The patient is on propofol infusion running at 60 g per KG per minute. The patient is on a mechanical ventilator session the same vent setting is yesterday with a rate of 24 with a tidal volume of 450 and FiO2 of 40% with a PEEP of 5. The blood gases showed a pH of 7.49 with a pCO2 of 33 and pO2 of 94. Chest x-ray findings are essentially stable. Nevertheless, the patient continues to be in atrial fibrillation with a rapid ventricular response and has been very difficult to control his heart rate. He is currently on a combination of Cardizem drip at 15 mg an hour and addition to amiodarone drip at 0.5 mg per minute and metoprolol at a dose of 100 mg by mouth 3 times a day. He is also on digoxin 0.25 mg on a daily basis. The patient is still having A. fib RVR despite this ongoing treatment for rate control. His heart rate is ranging between 120 and 160, irregular and the patient is also requiring norepinephrine infusion for blood pressure control and the patient is currently on levo fed running at 7 g per minute. Cardiology is on the case and the patient will not be cardioverted based on our ability to provide him any anticoagulants at the time of cardioversion. Hematologically, he is still in acute leukemic crisis. The patient platelet count is at 106. The patient has a 57% blasts. LDH pulses on the rise the patient has a BUN of 50 with a creatinine of 1.0. Uric acid is up to 2.4. Bilirubin is at 0.9, AST slightly elevated at 104. The patient was given Hydrea by hematology oncology at were unable to give him because of our inability to crushed medication. He is on Decadron 5 mg every 6 hours. The patient is afebrile. The patient on IV Zosyn. The bronchioloalveolar lavage was negative. Chest x-ray findings are stable. The neck fluid balance is in order of 34 1 mL positive and the patient is receiving daily Lasix dose of 40 mg IV push. On 09/04/2020, the patient remains intubated on a mechanical ventilator. As stated earlier, the patient was started on systemic therapy with cytarabine and this was started last night. This morning, the patient assist-control mode of ventilation at the rate of 24 with a tidal volume of 500 and FiO2 of 50% and a PEEP of 5. The patient's is sedated with propofol. The patient was having bouts of fever overnight and the patient's had a T-max of 102.2. The patient was given Tylenol. Cultures were sent. Noted the bronchoscopy and the bron chioloalveolar lavage done earlier showed no evidence of any microbial growth. 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 The chest x-ray still showing some pains right infrahilar and more prominent left basilar infiltrate/atelectasis. No new infiltration seen.. The patient remains in atrial fibrillation. Heart rate is still quite tachycardic and the patient continues to be on Cardizem drip at 15mg an hour in addition to metoprolol 100 mg by mouth 3 times a day, digoxin 250 g daily basis and amiodarone that has been switched to oral at a dose of 5 mg by mouth twice a day. The patient is still requiring low-dose norepinephrine infusion for blood pressure support which is running at 0.02 mg per KG per minute. I started the patient IV fluid and the patient was going on systemic chemotherapy and currently is on normal saline at rate of 70 mL an hour. The patient is taking insulin drip at 14 units an hour. He remains on IV Zosyn. Note that the hematologic profile is still quite abnormal. The white cell count is at 66.9. The patient has 46% blasts in the peripheral smear. Platelet counts at 76. The LDH remains elevated at 10,336. Renal function is stable with a BUN of 47 with a creatinine of 0.9. Uric acid level is at 2.6. Calcium level level is at 7.3. On 09/05/2020, the patient is still doing poorly. The patient is completing systemic chemotherapy regarding the acute AML crisis. Hematologically, the patient continues to have increased level of blasts in his peripheral smear addition to leukocytosis and elevated LDH. The patient is completing a course of cytarabine. Meanwhile, the patient is still sedated on mechanical ventilator. He is on propofol for sedation running at 60 g per KG per minute. I'll be unable to cut down his sedation as the patient becomes severely tachycardic restless and LUAN inhibitor the mechanical ventilator once of sedation. In terms of his cardiac status, heart rate is still tachycardic and in A. fib rhythm. Despite a combination of metoprolol 100 mg 3 times a day, Cardizem 50 mg an hour, amiodarone 400 mg twice a day and digoxin to 50 mg on a daily basis, the patient continues to be quite tachycardic. He is on no anticoagulants for now. He was having episodes of fever and the fever workup included a bronchoscopy and the bronchioloalveolar lavage that showed HSV-1 with some candidal elements. For that reason the patient was given a combination of acyclovir, Aguilar in combination with Zosyn as broad-spectrum antibiotic coverage. The patient is off pressors this morning. He is on a assist-control mode at the rate of 24 with a tidal volume of 500 and FiO2 of 40% with a PEEP of 5. Blood gas show pH of 7.46 with a pCO2 of 30-121 oxygen. The patient's chest x-ray shows increased interstitial infiltrates bilaterally which are somewhat stable compared to yesterday, probably slightly worse on the right. He is receiving daily Lasix doses. The fluid balance has been essentially slightly positive in order of +1 L over the past 24 hours. The patient is on insulin drip at 50 units an hour. He is receiving enteral feeding for nutritional support. No other significant events overnight. Objective - Vital Signs Vital signs: Vital Signs Temp 99.8 F H 09/05/20 08:00 Pulse 123 H 09/05/20 11:00 Resp 19 09/05/20 11:00 BP 82/63 09/05/20 11:00 Pulse Ox 93 L 09/05/20 11:00 Intake & Output 09/04/20 09/05/20 09/05/20 18:59 06:59 18:59 Intake Total 2080.804 2049.267 1437.278 Output Total 2340 1425 1450 Balance -259.196 624.267 -12.722 Weight 100.1 kg 104.1 kg Intake: IV 759 1267 500 0.9 240 1195 120 Acyclovir Sodium 1,000 mg 250 250 In Sodium Chloride 0.9% 250 ml @ 270 mls/hr IVPB Q8HR ANA Rx#:[id number] Normal Saline Pressure 69 72 30 Bag Piperacillin-Tazobactam 3 100 .375 gm In Sodium Chloride 0.9% 100 ml @ 25 mls/hr IVPB Q12HR ANA Rx #:[id number] Piperacillin-Tazobactam 3 100 100 .375 gm In Sodium Chloride 0.9% 100 ml @ 25 mls/hr IVPB Q8HR ANA Rx# :[id number] Intake, IV Titration 871.804 622.267 857.278 Amount Anidulafungin 100 mg In 250 Sodium Chloride 0.9% 100 ml @ 84 mls/hr IVPB DAILY ANA Rx#:[id number] Diltiazem 125 mg In 250 118.75 125 Sodium Chloride 0.9% 100 ml @ 15 MG/HR 15 mls/hr IV .Q8H20M ANA Rx#: [id number] Insulin Regular 100 unit 117.009 134.448 42.252 In Sodium Chloride 0.9% 100 ml @ Per Protocol IV .Q0M ANA Rx#:[id number] Norepinephrine 32 mg In 11.902 17.128 Sodium Chloride 0.9% 218 ml @ 0.06 MCG/KG/MIN 2. 776 mls/hr IV .Q24H ANA Rx#:[id number] Sodium Chloride 0.9% 1, 225 000 ml @ 75 mls/hr IV . [id number] ANA Rx#:[id number] propofoL 1,000 mg In 492.893 369.069 197.898 Empty Bag 1 bag @ Titrate IV .Q0M ANA Rx#: [id number] Oral 60 Tube Feeding 240 160 80 Other 150 Output: Urine 2340 1425 1450 Other: Voiding Method Indwelling Catheter Indwelling Catheter Indwelling Catheter # Voids 350 ABP, PAP, CO, CI - Last Documented Arterial Blood Pressure 102/46 - Exam Gen. appearance the patient is currently sedated, comfortable intubated on a mechanical ventilator. The patient is sedated with propofol. Orogastric and orotracheal tube are both in place. Head exam was generally normal. There was no scleral icterus or corneal arcus. Mucous membranes were moist. Neck was supple and without jugular venous distension, thyromegaly, or carotid bruits. Carotids were easily palpable bilaterally. There was no adenopathy.the patient is a left IJ triple-lumen catheter in place. Cardiac exam revealed the PMI to be normally situated and sized. The rhythm was irregular consistent with atrial fibrillation with rapid ventricular response and no extrasystoles were noted during several minutes of auscultation. The first and second heart sounds were normal and physiologic splitting of the second heart sound was noted. There were no murmurs, rubs, clicks, or gallops. Lungs were clear to auscultation and percussion, and with normal diaphragmatic excursion. No wheezes or rales were noted. Abdominal exam revealed normal bowel sounds. The abdomen was soft, non-tender, and without masses, organomegaly, or appreciable enlargement of the abdominal aorta. Examination of the extremities revealed easily palpable radial, femoral and pedal pulses. There was no cyanosis, clubbing or edema. Examination of the skin revealed no evidence of significant rashes, suspicious appearing nevi or other concerning lesions. Neurologically the patient is sedated and the patient is calm and comfortable at this point in time. Was sedated on a mechanical ventilator. A sedation holiday was given to this patient yesterday and failed as the patient became quite agitated and restless. He became also hemodynamically unstable and a significant the mechanical ventilator and the procedure to be aborted. - Labs CBC & Chem 7: 09/05/20 04:10 09/05/20 04:10 Labs: Abnormal Lab Results - Last 24 Hours (Table) 09/04/20 09/04/20 09/04/20 Range/Units 05:00 11:56 12:59 WBC (3.8-10.6) k/uL RBC (4.30-5.90) m/uL Hgb (13.0-17.5) gm/dL Hct (39.0-53.0) % MCV (80.0-100.0) fL MCH (25.0-35.0) pg RDW (11.5-15.5) % Plt Count (150-450) k/uL Blast Cells % % Neutrophils # (Manual) (1.3-7.7) k/uL Monocytes # (Manual) (0-1.0) k/uL Myelocytes # (Manual) (0) k/uL Blast Cells # (Man) (0) k/uL Haptoglobin 383.0 H (31.2-198.0) mg/dL PT (9.0-12.0) sec INR (<1.2) APTT (22.0-30.0) sec Fibrinogen (200-500) mg/dL ABG pH (7.35-7.45) ABG pCO2 (35-45) mmHg ABG pO2 (83-108) mmHg ABG O2 Saturation (94-97) % Sodium (137-145) mmol/L Potassium (3.5-5.1) mmol/L Chloride (98-107) mmol/L BUN (9-20) mg/dL Glucose (74-99) mg/dL POC Glucose (mg/dL) 117 H 207 H (75-99) mg/dL Uric Acid (3.5-8.5) mg/dL Calcium (8.4-10.2) mg/dL Phosphorus (2.5-4.5) mg/dL Magnesium (1.6-2.3) mg/dL AST (17-59) U/L Lactate Dehydrogenase (313-618) U/L Total Protein (6.3-8.2) g/dL Albumin (3.5-5.0) g/dL 09/04/20 09/04/20 09/04/20 Range/Units 13:24 14:14 15:02 WBC (3.8-10.6) k/uL RBC (4.30-5.90) m/uL Hgb (13.0-17.5) gm/dL Hct (39.0-53.0) % MCV (80.0-100.0) fL MCH (25.0-35.0) pg RDW (11.5-15.5) % Plt Count (150-450) k/uL Blast Cells % % Neutrophils # (Manual) (1.3-7.7) k/uL Monocytes # (Manual) (0-1.0) k/uL Myelocytes # (Manual) (0) k/uL Blast Cells # (Man) (0) k/uL Haptoglobin (31.2-198.0) mg/dL PT (9.0-12.0) sec INR (<1.2) APTT (22.0-30.0) sec Fibrinogen (200-500) mg/dL ABG pH (7.35-7.45) ABG pCO2 (35-45) mmHg ABG pO2 (83-108) mmHg ABG O2 Saturation (94-97) % Sodium (137-145) mmol/L Potassium (3.5-5.1) mmol/L Chloride (98-107) mmol/L BUN (9-20) mg/dL Glucose (74-99) mg/dL POC Glucose (mg/dL) 205 H 173 H 174 H (75-99) mg/dL Uric Acid (3.5-8.5) mg/dL Calcium (8.4-10.2) mg/dL Phosphorus (2.5-4.5) mg/dL Magnesium (1.6-2.3) mg/dL AST (17-59) U/L Lactate Dehydrogenase (313-618) U/L Total Protein (6.3-8.2) g/dL Albumin (3.5-5.0) g/dL 09/04/20 09/04/20 09/04/20 Range/Units 16:10 17:16 18:00 WBC (3.8-10.6) k/uL RBC (4.30-5.90) m/uL Hgb (13.0-17.5) gm/dL Hct (39.0-53.0) % MCV (80.0-100.0) fL MCH (25.0-35.0) pg RDW (11.5-15.5) % Plt Count (150-450) k/uL Blast Cells % % Neutrophils # (Manual) (1.3-7.7) k/uL Monocytes # (Manual) (0-1.0) k/uL Myelocytes # (Manual) (0) k/uL Blast Cells # (Man) (0) k/uL Haptoglobin (31.2-198.0) mg/dL PT (9.0-12.0) sec INR (<1.2) APTT (22.0-30.0) sec Fibrinogen (200-500) mg/dL ABG pH (7.35-7.45) ABG pCO2 (35-45) mmHg ABG pO2 (83-108) mmHg ABG O2 Saturation (94-97) % Sodium (137-145) mmol/L Potassium (3.5-5.1) mmol/L Chloride (98-107) mmol/L BUN (9-20) mg/dL Glucose (74-99) mg/dL POC Glucose (mg/dL) 175 H 144 H 143 H (75-99) mg/dL Uric Acid (3.5-8.5) mg/dL Calcium (8.4-10.2) mg/dL Phosphorus (2.5-4.5) mg/dL Magnesium (1.6-2.3) mg/dL AST (17-59) U/L Lactate Dehydrogenase (313-618) U/L Total Protein (6.3-8.2) g/dL Albumin (3.5-5.0) g/dL 09/04/20 09/04/20 09/04/20 Range/Units 19:03 20:27 21:05 WBC (3.8-10.6) k/uL RBC (4.30-5.90) m/uL Hgb (13.0-17.5) gm/dL Hct (39.0-53.0) % MCV (80.0-100.0) fL MCH (25.0-35.0) pg RDW (11.5-15.5) % Plt Count (150-450) k/uL Blast Cells % % Neutrophils # (Manual) (1.3-7.7) k/uL Monocytes # (Manual) (0-1.0) k/uL Myelocytes # (Manual) (0) k/uL Blast Cells # (Man) (0) k/uL Haptoglobin (31.2-198.0) mg/dL PT (9.0-12.0) sec INR (<1.2) APTT (22.0-30.0) sec Fibrinogen (200-500) mg/dL ABG pH (7.35-7.45) ABG pCO2 (35-45) mmHg ABG pO2 (83-108) mmHg ABG O2 Saturation (94-97) % Sodium (137-145) mmol/L Potassium (3.5-5.1) mmol/L Chloride (98-107) mmol/L BUN (9-20) mg/dL Glucose (74-99) mg/dL POC Glucose (mg/dL) 142 H 122 H 120 H (75-99) mg/dL Uric Acid (3.5-8.5) mg/dL Calcium (8.4-10.2) mg/dL Phosphorus (2.5-4.5) mg/dL Magnesium (1.6-2.3) mg/dL AST (17-59) U/L Lactate Dehydrogenase (313-618) U/L Total Protein (6.3-8.2) g/dL Albumin (3.5-5.0) g/dL 09/04/20 09/04/20 09/05/20 Range/Units 22:02 22:56 00:02 WBC (3.8-10.6) k/uL RBC (4.30-5.90) m/uL Hgb (13.0-17.5) gm/dL Hct (39.0-53.0) % MCV (80.0-100.0) fL MCH (25.0-35.0) pg RDW (11.5-15.5) % Plt Count (150-450) k/uL Blast Cells % % Neutrophils # (Manual) (1.3-7.7) k/uL Monocytes # (Manual) (0-1.0) k/uL Myelocytes # (Manual) (0) k/uL Blast Cells # (Man) (0) k/uL Haptoglobin (31.2-198.0) mg/dL PT (9.0-12.0) sec INR (<1.2) APTT (22.0-30.0) sec Fibrinogen (200-500) mg/dL ABG pH (7.35-7.45) ABG pCO2 (35-45) mmHg ABG pO2 (83-108) mmHg ABG O2 Saturation (94-97) % Sodium (137-145) mmol/L Potassium (3.5-5.1) mmol/L Chloride (98-107) mmol/L BUN (9-20) mg/dL Glucose (74-99) mg/dL POC Glucose (mg/dL) 111 H 165 H 141 H (75-99) mg/dL Uric Acid (3.5-8.5) mg/dL Calcium (8.4-10.2) mg/dL Phosphorus (2.5-4.5) mg/dL Magnesium (1.6-2.3) mg/dL AST (17-59) U/L Lactate Dehydrogenase (313-618) U/L Total Protein (6.3-8.2) g/dL Albumin (3.5-5.0) g/dL 09/05/20 09/05/20 09/05/20 Range/Units 01:14 02:17 03:06 WBC (3.8-10.6) k/uL RBC (4.30-5.90) m/uL Hgb (13.0-17.5) gm/dL Hct (39.0-53.0) % MCV (80.0-100.0) fL MCH (25.0-35.0) pg RDW (11.5-15.5) % Plt Count (150-450) k/uL Blast Cells % % Neutrophils # (Manual) (1.3-7.7) k/uL Monocytes # (Manual) (0-1.0) k/uL Myelocytes # (Manual) (0) k/uL Blast Cells # (Man) (0) k/uL Haptoglobin (31.2-198.0) mg/dL PT (9.0-12.0) sec INR (<1.2) APTT (22.0-30.0) sec Fibrinogen (200-500) mg/dL ABG pH (7.35-7.45) ABG pCO2 (35-45) mmHg ABG pO2 (83-108) mmHg ABG O2 Saturation (94-97) % Sodium (137-145) mmol/L Potassium (3.5-5.1) mmol/L Chloride (98-107) mmol/L BUN (9-20) mg/dL Glucose (74-99) mg/dL POC Glucose (mg/dL) 137 H 178 H 167 H (75-99) mg/dL Uric Acid (3.5-8.5) mg/dL Calcium (8.4-10.2) mg/dL Phosphorus (2.5-4.5) mg/dL Magnesium (1.6-2.3) mg/dL AST (17-59) U/L Lactate Dehydrogenase (313-618) U/L Total Protein (6.3-8.2) g/dL Albumin (3.5-5.0) g/dL 09/05/20 09/05/20 09/05/20 Range/Units 04:09 04:10 04:10 WBC 33.7 H (3.8-10.6) k/uL RBC 1.91 L (4.30-5.90) m/uL Hgb 7.1 L (13.0-17.5) gm/dL Hct 19.3 L* (39.0-53.0) % MCV 101.2 H (80.0-100.0) fL MCH 37.1 H (25.0-35.0) pg RDW 18.3 H (11.5-15.5) % Plt Count 74 L (150-450) k/uL Blast Cells % 44 H* % Neutrophils # (Manual) 14.40 H (1.3-7.7) k/uL Monocytes # (Manual) 1.01 H (0-1.0) k/uL Myelocytes # (Manual) 1.69 H (0) k/uL Blast Cells # (Man) 14.83 H (0) k/uL Haptoglobin (31.2-198.0) mg/dL PT 13.0 H (9.0-12.0) sec INR 1.3 H (<1.2) APTT 20.8 L (22.0-30.0) sec Fibrinogen 158 L (200-500) mg/dL ABG pH (7.35-7.45) ABG pCO2 (35-45) mmHg ABG pO2 (83-108) mmHg ABG O2 Saturation (94-97) % Sodium (137-145) mmol/L Potassium (3.5-5.1) mmol/L Chloride (98-107) mmol/L BUN (9-20) mg/dL Glucose (74-99) mg/dL POC Glucose (mg/dL) 165 H (75-99) mg/dL Uric Acid (3.5-8.5) mg/dL Calcium (8.4-10.2) mg/dL Phosphorus (2.5-4.5) mg/dL Magnesium (1.6-2.3) mg/dL AST (17-59) U/L Lactate Dehydrogenase (313-618) U/L Total Protein (6.3-8.2) g/dL Albumin (3.5-5.0) g/dL 09/05/20 09/05/20 09/05/20 Range/Units 04:10 05:22 05:30 WBC (3.8-10.6) k/uL RBC (4.30-5.90) m/uL Hgb (13.0-17.5) gm/dL Hct (39.0-53.0) % MCV (80.0-100.0) fL MCH (25.0-35.0) pg RDW (11.5-15.5) % Plt Count (150-450) k/uL Blast Cells % % Neutrophils # (Manual) (1.3-7.7) k/uL Monocytes # (Manual) (0-1.0) k/uL Myelocytes # (Manual) (0) k/uL Blast Cells # (Man) (0) k/uL Haptoglobin (31.2-198.0) mg/dL PT (9.0-12.0) sec INR (<1.2) APTT (22.0-30.0) sec Fibrinogen (200-500) mg/dL ABG pH 7.46 H (7.35-7.45) ABG pCO2 32 L (35-45) mmHg ABG pO2 121 H (83-108) mmHg ABG O2 Saturation 98.7 H (94-97) % Sodium 147 H (137-145) mmol/L Potassium 5.2 H (3.5-5.1) mmol/L Chloride 121 H (98-107) mmol/L BUN 44 H (9-20) mg/dL Glucose 157 H (74-99) mg/dL POC Glucose (mg/dL) 151 H (75-99) mg/dL Uric Acid 3.1 L (3.5-8.5) mg/dL Calcium 7.3 L (8.4-10.2) mg/dL Phosphorus 5.0 H (2.5-4.5) mg/dL Magnesium 2.9 H (1.6-2.3) mg/dL AST 80 H (17-59) U/L Lactate Dehydrogenase 33392 H (313-618) U/L Total Protein 4.9 L (6.3-8.2) g/dL Albumin 2.6 L (3.5-5.0) g/dL 09/05/20 09/05/20 09/05/20 Range/Units 06:15 07:05 08:02 WBC (3.8-10.6) k/uL RBC (4.30-5.90) m/uL Hgb (13.0-17.5) gm/dL Hct (39.0-53.0) % MCV (80.0-100.0) fL MCH (25.0-35.0) pg RDW (11.5-15.5) % Plt Count (150-450) k/uL Blast Cells % % Neutrophils # (Manual) (1.3-7.7) k/uL Monocytes # (Manual) (0-1.0) k/uL Myelocytes # (Manual) (0) k/uL Blast Cells # (Man) (0) k/uL Haptoglobin (31.2-198.0) mg/dL PT (9.0-12.0) sec INR (<1.2) APTT (22.0-30.0) sec Fibrinogen (200-500) mg/dL ABG pH (7.35-7.45) ABG pCO2 (35-45) mmHg ABG pO2 (83-108) mmHg ABG O2 Saturation (94-97) % Sodium (137-145) mmol/L Potassium (3.5-5.1) mmol/L Chloride (98-107) mmol/L BUN (9-20) mg/dL Glucose (74-99) mg/dL POC Glucose (mg/dL) 140 H 129 H 174 H (75-99) mg/dL Uric Acid (3.5-8.5) mg/dL Calcium (8.4-10.2) mg/dL Phosphorus (2.5-4.5) mg/dL Magnesium (1.6-2.3) mg/dL AST (17-59) U/L Lactate Dehydrogenase (313-618) U/L Total Protein (6.3-8.2) g/dL Albumin (3.5-5.0) g/dL 09/05/20 09/05/20 Range/Units 10:11 11:41 WBC (3.8-10.6) k/uL RBC (4.30-5.90) m/uL Hgb (13.0-17.5) gm/dL Hct (39.0-53.0) % MCV (80.0-100.0) fL MCH (25.0-35.0) pg RDW (11.5-15.5) % Plt Count (150-450) k/uL Blast Cells % % Neutrophils # (Manual) (1.3-7.7) k/uL Monocytes # (Manual) (0-1.0) k/uL Myelocytes # (Manual) (0) k/uL Blast Cells # (Man) (0) k/uL Haptoglobin (31.2-198.0) mg/dL PT (9.0-12.0) sec INR (<1.2) APTT (22.0-30.0) sec Fibrinogen (200-500) mg/dL ABG pH (7.35-7.45) ABG pCO2 (35-45) mmHg ABG pO2 (83-108) mmHg ABG O2 Saturation (94-97) % Sodium (137-145) mmol/L Potassium (3.5-5.1) mmol/L Chloride (98-107) mmol/L BUN (9-20) mg/dL Glucose (74-99) mg/dL POC Glucose (mg/dL) 193 H 170 H (75-99) mg/dL Uric Acid (3.5-8.5) mg/dL Calcium (8.4-10.2) mg/dL Phosphorus (2.5-4.5) mg/dL Magnesium (1.6-2.3) mg/dL AST (17-59) U/L Lactate Dehydrogenase (313-618) U/L Total Protein (6.3-8.2) g/dL Albumin (3.5-5.0) g/dL Microbiology - Last 24 Hours (Table) 09/04/20 11:11 Gram Stain - Preliminary Sputum Sputum Culture - Preliminary 09/04/20 11:11 Urine Culture - Preliminary Urine,Catheterized 08/31/20 10:30 Fungal Culture - Preliminary Bronchial Washings - Random [place] albicans Assessment and Plan Plan: 1 acute hypoxic respiratory failure, with development of diffuse bilateral pulmonary infiltrates, possibly related to acute lung injury from various insult related to acute promyelocytic leukemia treatment. The patient got intubated on 08/30/2020 and the patient is currently on a mechanical ventilator. Chest x-ray still showing diffuse but the pulmonary infiltrates. 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 The patient is having low-grade fever. No alem terial growth. The patient is on Zosyn. Added acyclovir and and Eraxis and accommodation. With Zosyn for broad-spectrum antibiotic coverage. The patient is currently on systemic chemotherapy. Chest x-ray findings are stable. Oxidation is stable for now. The patient remains on mechanical ventilator. 2 fever, improving and the patient has not spiked a temperature over the past 12 hours. Ascending to monitor. 3 acute leukocytosis with a White cell count is up to 33, with essentially 44% blasts, high level of blasts, in addition to anemia and thrombocytopenia. This is related to acute leukemic crisis, and the patient is currently receiving cytarabine and he will be completing the systemic chemotherapy today. 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 13 obstructive sleep apnea, history of 14 hypertension Plan Continue ventilator support Continue Zosyn, acyclovir and Eraxis Repeat blood cultures of been negative Continue the pressors for hemodynamic support Continue same cardiac medication for rate control in regards to atrial fibrillation. Not a candidate for anticoagulation. The patient is currently receiving systemic chemotherapy with cytarabine. Continue the systemic chemotherapy with a monitor the hematologic profile Continue enteral feeding for nutritional support Insulin drip for blood sugar control, currently at 13 units an hour Monitor labs for any possibility of a tumor lysis syndrome Prognosis extremely poor baseline above-mentioned comorbidities Monitor electrolytes critical condition will continue to follow make further recommendations based on the progress. This evaluation was done and morning 30 minutes. Time with Patient: Greater than 30
--- NOTE | 2020-09-05 13:12 | P.PN ---
Subjective Progress Note Date: 09/05/20 Principal diagnosis: APL - Acute Hypoxic respiratory failure No acute events overnight, patient remains in critical care requiring full support by ICU. Differentiation syndroma plus/minus sepsis. I have read and agree with ID recommendations with coverage for viral, fungal, and bacterial. Patients fibrinogen has decreased today in comparision to days prior. Very close monitoring of any bleeding at sites of lines, or elsewhere is imperative to monitor for, will discuss again with todays RN to continue close monitoring of this. Imposed DIC and primary hyperfibrinolysis in the picture of an acute APL patient who initially started treatment is a situation requiring very close and aggressive management. Differentiation syndrome with picture of cytokine storm can also present very similiar to picture of sepsis (fever, edema, respiratory failure, pulm infiltrates, hypotension, renal and hepatic insufficiencies) therefore close monitoring of daily bloodwork and full support by team is necessary. Will recheck d-dimer, fibrinogen, cbc now. Continue to monitor signs of any bleeding espicially at sites of line entry, bowels, bladder, gums: If any signs of bleeding please call hematology. - Daily CBC, CMP, Fibrinogen, PTT, PT, INR, Dimer, - Transfuse unit of Cryoprecipitate if Fibrinogen less than 100 - Transfuse platelets if less than 50K and bleeding or if coagulopathy Transfuse FFP in picture of bleeding or oozing - Keep platelets greater than 30K in this scenario - Continue on 20mg IV dex (in 2-3 doses) daily - Continue full Infectious possibility coverage per ID - Continue Cytarabine for cytokine reduction (Day 2 of 3) Objective - Vital Signs Vital signs: Vital Signs Temp 100.6 F H 09/05/20 12:00 Pulse 146 H 09/05/20 12:00 Resp 25 H 09/05/20 12:00 BP 89/58 09/05/20 11:30 Pulse Ox 93 L 09/05/20 12:00 Intake & Output 09/04/20 09/05/20 09/05/20 18:59 06:59 18:59 Intake Total 2080.804 2049.267 1483.278 Output Total 2340 1425 1600 Balance -259.196 624.267 -116.722 Weight 100.1 kg 104.1 kg Intake: IV 759 1267 506 0.9 240 1195 120 Acyclovir Sodium 1,000 mg 250 250 In Sodium Chloride 0.9% 250 ml @ 270 mls/hr IVPB Q8HR ANA Rx#:[id number] Normal Saline Pressure 69 72 36 Bag Piperacillin-Tazobactam 3 100 .375 gm In Sodium Chloride 0.9% 100 ml @ 25 mls/hr IVPB Q12HR ANA Rx #:[id number] Piperacillin-Tazobactam 3 100 100 .375 gm In Sodium Chloride 0.9% 100 ml @ 25 mls/hr IVPB Q8HR ANA Rx# :[id number] Intake, IV Titration 871.804 622.267 857.278 Amount Anidulafungin 100 mg In 250 Sodium Chloride 0.9% 100 ml @ 84 mls/hr IVPB DAILY ANA Rx#:[id number] Diltiazem 125 mg In 250 118.75 125 Sodium Chloride 0.9% 100 ml @ 15 MG/HR 15 mls/hr IV .Q8H20M ANA Rx#: [id number] Insulin Regular 100 unit 117.009 134.448 42.252 In Sodium Chloride 0.9% 100 ml @ Per Protocol IV .Q0M ANA Rx#:[id number] Norepinephrine 32 mg In 11.902 17.128 Sodium Chloride 0.9% 218 ml @ 0.06 MCG/KG/MIN 2. 776 mls/hr IV .Q24H ANA Rx#:[id number] Sodium Chloride 0.9% 1, 225 000 ml @ 75 mls/hr IV . [id number] ANA Rx#:[id number] propofoL 1,000 mg In 492.893 369.069 197.898 Empty Bag 1 bag @ Titrate IV .Q0M ANA Rx#: [id number] Oral 60 Tube Feeding 240 160 120 Other 150 Output: Urine 2340 1425 1600 Other: Voiding Method Indwelling Catheter Indwelling Catheter Indwelling Catheter # Voids 350 ABP, PAP, CO, CI - Last Documented Arterial Blood Pressure 106/45 - Exam - Constitutional Constitutional Comment(s): Ventilator - EENT Eyes: Present: EOMI ENT:ET tube - Respiratory Respiratory: bilateral: rales, rhonchi - Cardiovascular Rhythm: irregularly irregular Heart sounds: normal: S1, S2 - Gastrointestinal General gastrointestinal: Present: distended, normal bowel sounds, soft - Integumentary Integumentary: Present: normal - Neurologic Neurologic:KARSTEN - Musculoskeletal Musculoskeletal:Atrophy noted to muscles, KARSTEN strength - Psychiatric Psychiatric: KARSTEN - Labs CBC & Chem 7: 09/05/20 04:10 09/05/20 04:10 Labs: Abnormal Lab Results - Last 24 Hours (Table) 09/04/20 09/04/20 09/04/20 Range/Units 12:59 13:24 14:14 WBC (3.8-10.6) k/uL RBC (4.30-5.90) m/uL Hgb (13.0-17.5) gm/dL Hct (39.0-53.0) % MCV (80.0-100.0) fL MCH (25.0-35.0) pg RDW (11.5-15.5) % Plt Count (150-450) k/uL Blast Cells % % Neutrophils # (Manual) (1.3-7.7) k/uL Monocytes # (Manual) (0-1.0) k/uL Myelocytes # (Manual) (0) k/uL Blast Cells # (Man) (0) k/uL PT (9.0-12.0) sec INR (<1.2) APTT (22.0-30.0) sec Fibrinogen (200-500) mg/dL ABG pH (7.35-7.45) ABG pCO2 (35-45) mmHg ABG pO2 (83-108) mmHg ABG O2 Saturation (94-97) % Sodium (137-145) mmol/L Potassium (3.5-5.1) mmol/L Chloride (98-107) mmol/L BUN (9-20) mg/dL Glucose (74-99) mg/dL POC Glucose (mg/dL) 207 H 205 H 173 H (75-99) mg/dL Uric Acid (3.5-8.5) mg/dL Calcium (8.4-10.2) mg/dL Phosphorus (2.5-4.5) mg/dL Magnesium (1.6-2.3) mg/dL AST (17-59) U/L Lactate Dehydrogenase (313-618) U/L Total Protein (6.3-8.2) g/dL Albumin (3.5-5.0) g/dL 09/04/20 09/04/20 09/04/20 Range/Units 15:02 16:10 17:16 WBC (3.8-10.6) k/uL RBC (4.30-5.90) m/uL Hgb (13.0-17.5) gm/dL Hct (39.0-53.0) % MCV (80.0-100.0) fL MCH (25.0-35.0) pg RDW (11.5-15.5) % Plt Count (150-450) k/uL Blast Cells % % Neutrophils # (Manual) (1.3-7.7) k/uL Monocytes # (Manual) (0-1.0) k/uL Myelocytes # (Manual) (0) k/uL Blast Cells # (Man) (0) k/uL PT (9.0-12.0) sec INR (<1.2) APTT (22.0-30.0) sec Fibrinogen (200-500) mg/dL ABG pH (7.35-7.45) ABG pCO2 (35-45) mmHg ABG pO2 (83-108) mmHg ABG O2 Saturation (94-97) % Sodium (137-145) mmol/L Potassium (3.5-5.1) mmol/L Chloride (98-107) mmol/L BUN (9-20) mg/dL Glucose (74-99) mg/dL POC Glucose (mg/dL) 174 H 175 H 144 H (75-99) mg/dL Uric Acid (3.5-8.5) mg/dL Calcium (8.4-10.2) mg/dL Phosphorus (2.5-4.5) mg/dL Magnesium (1.6-2.3) mg/dL AST (17-59) U/L Lactate Dehydrogenase (313-618) U/L Total Protein (6.3-8.2) g/dL Albumin (3.5-5.0) g/dL 09/04/20 09/04/20 09/04/20 Range/Units 18:00 19:03 20:27 WBC (3.8-10.6) k/uL RBC (4.30-5.90) m/uL Hgb (13.0-17.5) gm/dL Hct (39.0-53.0) % MCV (80.0-100.0) fL MCH (25.0-35.0) pg RDW (11.5-15.5) % Plt Count (150-450) k/uL Blast Cells % % Neutrophils # (Manual) (1.3-7.7) k/uL Monocytes # (Manual) (0-1.0) k/uL Myelocytes # (Manual) (0) k/uL Blast Cells # (Man) (0) k/uL PT (9.0-12.0) sec INR (<1.2) APTT (22.0-30.0) sec Fibrinogen (200-500) mg/dL ABG pH (7.35-7.45) ABG pCO2 (35-45) mmHg ABG pO2 (83-108) mmHg ABG O2 Saturation (94-97) % Sodium (137-145) mmol/L Potassium (3.5-5.1) mmol/L Chloride (98-107) mmol/L BUN (9-20) mg/dL Glucose (74-99) mg/dL POC Glucose (mg/dL) 143 H 142 H 122 H (75-99) mg/dL Uric Acid (3.5-8.5) mg/dL Calcium (8.4-10.2) mg/dL Phosphorus (2.5-4.5) mg/dL Magnesium (1.6-2.3) mg/dL AST (17-59) U/L Lactate Dehydrogenase (313-618) U/L Total Protein (6.3-8.2) g/dL Albumin (3.5-5.0) g/dL 09/04/20 09/04/20 09/04/20 Range/Units 21:05 22:02 22:56 WBC (3.8-10.6) k/uL RBC (4.30-5.90) m/uL Hgb (13.0-17.5) gm/dL Hct (39.0-53.0) % MCV (80.0-100.0) fL MCH (25.0-35.0) pg RDW (11.5-15.5) % Plt Count (150-450) k/uL Blast Cells % % Neutrophils # (Manual) (1.3-7.7) k/uL Monocytes # (Manual) (0-1.0) k/uL Myelocytes # (Manual) (0) k/uL Blast Cells # (Man) (0) k/uL PT (9.0-12.0) sec INR (<1.2) APTT (22.0-30.0) sec Fibrinogen (200-500) mg/dL ABG pH (7.35-7.45) ABG pCO2 (35-45) mmHg ABG pO2 (83-108) mmHg ABG O2 Saturation (94-97) % Sodium (137-145) mmol/L Potassium (3.5-5.1) mmol/L Chloride (98-107) mmol/L BUN (9-20) mg/dL Glucose (74-99) mg/dL POC Glucose (mg/dL) 120 H 111 H 165 H (75-99) mg/dL Uric Acid (3.5-8.5) mg/dL Calcium (8.4-10.2) mg/dL Phosphorus (2.5-4.5) mg/dL Magnesium (1.6-2.3) mg/dL AST (17-59) U/L Lactate Dehydrogenase (313-618) U/L Total Protein (6.3-8.2) g/dL Albumin (3.5-5.0) g/dL 09/05/20 09/05/20 09/05/20 Range/Units 00:02 01:14 02:17 WBC (3.8-10.6) k/uL RBC (4.30-5.90) m/uL Hgb (13.0-17.5) gm/dL Hct (39.0-53.0) % MCV (80.0-100.0) fL MCH (25.0-35.0) pg RDW (11.5-15.5) % Plt Count (150-450) k/uL Blast Cells % % Neutrophils # (Manual) (1.3-7.7) k/uL Monocytes # (Manual) (0-1.0) k/uL Myelocytes # (Manual) (0) k/uL Blast Cells # (Man) (0) k/uL PT (9.0-12.0) sec INR (<1.2) APTT (22.0-30.0) sec Fibrinogen (200-500) mg/dL ABG pH (7.35-7.45) ABG pCO2 (35-45) mmHg ABG pO2 (83-108) mmHg ABG O2 Saturation (94-97) % Sodium (137-145) mmol/L Potassium (3.5-5.1) mmol/L Chloride (98-107) mmol/L BUN (9-20) mg/dL Glucose (74-99) mg/dL POC Glucose (mg/dL) 141 H 137 H 178 H (75-99) mg/dL Uric Acid (3.5-8.5) mg/dL Calcium (8.4-10.2) mg/dL Phosphorus (2.5-4.5) mg/dL Magnesium (1.6-2.3) mg/dL AST (17-59) U/L Lactate Dehydrogenase (313-618) U/L Total Protein (6.3-8.2) g/dL Albumin (3.5-5.0) g/dL 09/05/20 09/05/20 09/05/20 Range/Units 03:06 04:09 04:10 WBC (3.8-10.6) k/uL RBC (4.30-5.90) m/uL Hgb (13.0-17.5) gm/dL Hct (39.0-53.0) % MCV (80.0-100.0) fL MCH (25.0-35.0) pg RDW (11.5-15.5) % Plt Count (150-450) k/uL Blast Cells % % Neutrophils # (Manual) (1.3-7.7) k/uL Monocytes # (Manual) (0-1.0) k/uL Myelocytes # (Manual) (0) k/uL Blast Cells # (Man) (0) k/uL PT 13.0 H (9.0-12.0) sec INR 1.3 H (<1.2) APTT 20.8 L (22.0-30.0) sec Fibrinogen 158 L (200-500) mg/dL ABG pH (7.35-7.45) ABG pCO2 (35-45) mmHg ABG pO2 (83-108) mmHg ABG O2 Saturation (94-97) % Sodium (137-145) mmol/L Potassium (3.5-5.1) mmol/L Chloride (98-107) mmol/L BUN (9-20) mg/dL Glucose (74-99) mg/dL POC Glucose (mg/dL) 167 H 165 H (75-99) mg/dL Uric Acid (3.5-8.5) mg/dL Calcium (8.4-10.2) mg/dL Phosphorus (2.5-4.5) mg/dL Magnesium (1.6-2.3) mg/dL AST (17-59) U/L Lactate Dehydrogenase (313-618) U/L Total Protein (6.3-8.2) g/dL Albumin (3.5-5.0) g/dL 09/05/20 09/05/20 09/05/20 Range/Units 04:10 04:10 05:22 WBC 33.7 H (3.8-10.6) k/uL RBC 1.91 L (4.30-5.90) m/uL Hgb 7.1 L (13.0-17.5) gm/dL Hct 19.3 L* (39.0-53.0) % MCV 101.2 H (80.0-100.0) fL MCH 37.1 H (25.0-35.0) pg RDW 18.3 H (11.5-15.5) % Plt Count 74 L (150-450) k/uL Blast Cells % 44 H* % Neutrophils # (Manual) 14.40 H (1.3-7.7) k/uL Monocytes # (Manual) 1.01 H (0-1.0) k/uL Myelocytes # (Manual) 1.69 H (0) k/uL Blast Cells # (Man) 14.83 H (0) k/uL PT (9.0-12.0) sec INR (<1.2) APTT (22.0-30.0) sec Fibrinogen (200-500) mg/dL ABG pH 7.46 H (7.35-7.45) ABG pCO2 32 L (35-45) mmHg ABG pO2 121 H (83-108) mmHg ABG O2 Saturation 98.7 H (94-97) % Sodium 147 H (137-145) mmol/L Potassium 5.2 H (3.5-5.1) mmol/L Chloride 121 H (98-107) mmol/L BUN 44 H (9-20) mg/dL Glucose 157 H (74-99) mg/dL POC Glucose (mg/dL) (75-99) mg/dL Uric Acid 3.1 L (3.5-8.5) mg/dL Calcium 7.3 L (8.4-10.2) mg/dL Phosphorus 5.0 H (2.5-4.5) mg/dL Magnesium 2.9 H (1.6-2.3) mg/dL AST 80 H (17-59) U/L Lactate Dehydrogenase 86326 H (313-618) U/L Total Protein 4.9 L (6.3-8.2) g/dL Albumin 2.6 L (3.5-5.0) g/dL 09/05/20 09/05/20 09/05/20 Range/Units 05:30 06:15 07:05 WBC (3.8-10.6) k/uL RBC (4.30-5.90) m/uL Hgb (13.0-17.5) gm/dL Hct (39.0-53.0) % MCV (80.0-100.0) fL MCH (25.0-35.0) pg RDW (11.5-15.5) % Plt Count (150-450) k/uL Blast Cells % % Neutrophils # (Manual) (1.3-7.7) k/uL Monocytes # (Manual) (0-1.0) k/uL Myelocytes # (Manual) (0) k/uL Blast Cells # (Man) (0) k/uL PT (9.0-12.0) sec INR (<1.2) APTT (22.0-30.0) sec Fibrinogen (200-500) mg/dL ABG pH (7.35-7.45) ABG pCO2 (35-45) mmHg ABG pO2 (83-108) mmHg ABG O2 Saturation (94-97) % Sodium (137-145) mmol/L Potassium (3.5-5.1) mmol/L Chloride (98-107) mmol/L BUN (9-20) mg/dL Glucose (74-99) mg/dL POC Glucose (mg/dL) 151 H 140 H 129 H (75-99) mg/dL Uric Acid (3.5-8.5) mg/dL Calcium (8.4-10.2) mg/dL Phosphorus (2.5-4.5) mg/dL Magnesium (1.6-2.3) mg/dL AST (17-59) U/L Lactate Dehydrogenase (313-618) U/L Total Protein (6.3-8.2) g/dL Albumin (3.5-5.0) g/dL 09/05/20 09/05/20 09/05/20 Range/Units 08:02 10:11 11:41 WBC (3.8-10.6) k/uL RBC (4.30-5.90) m/uL Hgb (13.0-17.5) gm/dL Hct (39.0-53.0) % MCV (80.0-100.0) fL MCH (25.0-35.0) pg RDW (11.5-15.5) % Plt Count (150-450) k/uL Blast Cells % % Neutrophils # (Manual) (1.3-7.7) k/uL Monocytes # (Manual) (0-1.0) k/uL Myelocytes # (Manual) (0) k/uL Blast Cells # (Man) (0) k/uL PT (9.0-12.0) sec INR (<1.2) APTT (22.0-30.0) sec Fibrinogen (200-500) mg/dL ABG pH (7.35-7.45) ABG pCO2 (35-45) mmHg ABG pO2 (83-108) mmHg ABG O2 Saturation (94-97) % Sodium (137-145) mmol/L Potassium (3.5-5.1) mmol/L Chloride (98-107) mmol/L BUN (9-20) mg/dL Glucose (74-99) mg/dL POC Glucose (mg/dL) 174 H 193 H 170 H (75-99) mg/dL Uric Acid (3.5-8.5) mg/dL Calcium (8.4-10.2) mg/dL Phosphorus (2.5-4.5) mg/dL Magnesium (1.6-2.3) mg/dL AST (17-59) U/L Lactate Dehydrogenase (313-618) U/L Total Protein (6.3-8.2) g/dL Albumin (3.5-5.0) g/dL Microbiology - Last 24 Hours (Table) 09/04/20 11:11 Gram Stain - Preliminary Sputum Sputum Culture - Preliminary 09/04/20 11:11 Urine Culture - Preliminary Urine,Catheterized 08/31/20 10:30 Fungal Culture - Preliminary Bronchial Washings - Random [place] albicans Assessment and Plan Plan: Assessment and Recommendations: 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 Unfort worsened to 56% on 09/02/20 and today 59% on 09/03/20. Unable to administer hydrea dosage through feeding tube while on ventilator therefore will order Cyatarbine 100mg/m2 iv x3 days as cytoreduction treatment. 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 - Status post second treatment with rasburicase on 08/30 - Uric Acid improved today - Monitor daily Tumor Lysis Labs (CMP, LDH, Uric acid, Mag, and Phos) - Monitor Daily CBC with differential and Coags (PT, PTT, INR) Acute Hypoxic Respiratory Failure: Secondary to differentiation syndrome plus or minus sepsis - Remains ICU on Mechanical Ventilator (08/30/2020) - Acute development of diffuse bilateral pulmonary infiltrates - Differentials include pneumonia/CHF (not consistent with CHF - felt to be differential syndrome) versus noncardiogenic pulmonary edema 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 - Daily CBC, CMP, Fibrinogen, PTT, PT, INR, Dimer, - Transfuse unit of Cryoprecipitate if Fibrinogen less than 100 (recheck d- dimer, fibrinogen, and cbc now) - Transfuse platelets if less than 50K and bleeding or if coagulopathy Transfuse FFP in picture of bleeding or oozing - Keep platelets greater than 30K in this scenario - Continue on 20mg IV dex (in 2-3 doses) daily - Continue full Infectious possibility coverage per ID - Continue Cytarabine for cytokine reduction (Day 2 of 3) Leslie Gomez NP
[2020-09-05 13:51] LABS: Glucose,Whole Blood 141 mg/dL (75-99)
[2020-09-05 14:32] LABS: Anisocytosis Slight; HGB 7.3 gm/dL (13.0-17.5); Hypochromasia Slight; MCH 37.5 pg (25.0-35.0); MCHC 37.3 g/dL (31.0-37.0); MCV 100.4 fL (80.0-100.0); Macrocytosis Moderate; Mean Platelet Volume 8.9; Poikilocytosis Slight; RBC 1.95 m/uL (4.30-5.90); RDW 18.3 % (11.5-15.5)
[2020-09-05 14:38] LABS: Platelet Count 84 k/uL (150-450)
[2020-09-05 15:02] LABS: Band Neutrophils % 1 %; Blast Cells # (M) 8.13 k/uL (0); Lymphocytes # (M) 0.81 k/uL (1.0-4.8); Metamyelocytes # (M) 2.71 k/uL (0); Metamyelocytes % 10 %; Monocytes # (M) 0.81 k/uL (0-1.0); Myelocytes # (M) 4.34 k/uL (0); Myelocytes % 16 %; Neutrophils % (M) 36 %; Nucleated Red Blood Cells 4 /100 WBC (0-0); Promyelocytes # (M) 0.27 k/uL (0); Promyelocytes % 1 %; Total Cells Counted 100; WBC 27.1 k/uL (3.8-10.6)
[2020-09-05 15:06] LABS: HCT 19.6 % (39.0-53.0)
[2020-09-05 15:29] LABS: D-Dimer 22.89 mg/L FEU (<0.60)
[2020-09-05] MEDS: NOREPINEPHRINE 32 MG in SODIUM CHLORIDE 0.9% 218 ML IV SCH (15:29)
[2020-09-05 16:23] LABS: Glucose,Whole Blood 109 mg/dL (75-99)
[2020-09-05 18:11] LABS: Glucose,Whole Blood 98 mg/dL (75-99)
--- NOTE | 2020-09-05 19:42 | PN ---
PROGRESS NOTE DATE OF SERVICE: 09/05/2020 REASON FOR FOLLOWUP: Fever, possible pneumonia. INTERVAL HISTORY: Patient's overall fever pattern has improved. The highest temperature today was 100.6 at noon. No fever since then. The patient is hemodynamically stable. Not off pressor support but FiO2 is currently stable. No significant purulent secretions in the ET. Has been tolerating his tube feeds and no diarrhea, as per the nursing staff. PHYSICAL EXAMINATION: Blood pressure 138/50 with a pulse of 108, temperature 98.5. He is 97% on 50% FiO2. General description is an elderly male lying in bed in no distress. Respiratory system: Unlabored breathing, decreased breath sounds in the bases. No wheeze. Heart S1, S2. Regular rate and rhythm. ABDOMEN: Soft, no tenderness. LABS: Hemoglobin is 10.4, white count 27.1. Cultures so far are pending that was done yesterday. DIAGNOSTIC IMPRESSION AND PLAN: Patient with fever in this patient with acute leukemia status post chemo with subsequent increasing shortness of breath and acute respiratory failure, currently on the vent. Bronchoscopy culture has been negative with fever. Repeat culture currently pending. The patient is responding to current treatment on Zosyn ,to continue. Family at the bedside. Questions and concerns answered. MMODL / IJN: [id number] / EL[place]
[2020-09-05 20:11] LABS: Glucose,Whole Blood 196 mg/dL (75-99)
[2020-09-05] MEDS: ATORVASTATIN 10 MG TAB PO SCH (20:19)
[2020-09-05] MEDS: FAMOTIDINE 20 MG/2 ML VIAL IV SCH (20:28)
[2020-09-05] MEDS: ONDANSETRON 16 MG in SODIUM CHLORIDE 0.9% 50 ML IVPB SCH (20:28)
[2020-09-05] MEDS: SODIUM CHLORIDE 0.9% IV SCH (21:05)
[2020-09-05] MEDS: CYTARABINE IV SCH (21:05)
[2020-09-05 21:16] LABS: Glucose,Whole Blood 182 mg/dL (75-99)
[2020-09-05 22:04] LABS: Glucose,Whole Blood 154 mg/dL (75-99)
[2020-09-05 23:04] LABS: Glucose,Whole Blood 144 mg/dL (75-99)
--- NOTE | 2020-09-05 23:36 | P.PN ---
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 HE was treated with Zosyn and eraxis, pulmonary/critical care team on the case and then following the patient closely, as well as hematology and oncology team and he is receiving CPR pain with close monitoring of hematologic parameters. Also he is afebrile with RVR needing Cardizem drip, amiodarone and digoxin and beta barbara, cardiology on the case. Also he is on steroids. Carotid fever low-grade temperature today. He is also on insulin drip and blood pressure is low normal. Review of systems: N/a Active Medications Generic Name Dose Route Start Last Admin Trade Name Freq PRN Reason Stop Dose Admin Acetaminophen 500 mg 09/03/20 18:58 09/04/20 21:54 Acetaminophen Tab 500 Mg Tab PO 500 mg Q4HR PRN Administration Fever and/ or Pain Hydrocodone Bitart/Acetaminophen 1 each 08/24/20 20:04 09/03/20 12:38 Hydrocodone/Apap 10-325mg 1 Each Tab PO 1 each QID PRN Administration Pain Al Hydroxide/Mg Hydroxide 30 ml 08/25/20 21:43 08/29/20 02:27 Mag Hydrox/Al Hydrox/Simeth 30 Ml Cup PO 30 ml Q4HR PRN Administration GI Upset Amiodarone HCl 400 mg 09/01/20 21:00 09/05/20 20:19 Amiodarone 200 Mg Tab PO 400 mg BID ANA Administration Atorvastatin Calcium 10 mg 08/24/20 21:00 09/05/20 20:19 Atorvastatin 10 Mg Tab PO 10 mg HS ANA Administration Chlorhexidine Gluconate 15 ml 08/30/20 21:00 09/05/20 20:19 Chlorhexidine Gluconate 15 Ml Cup MUCOUS MEM 15 ml BID ANA Administration Dexamethasone Sodium Phosphate 5 mg 08/30/20 14:49 09/05/20 19:39 Dexamethasone Sod Phosphate 4 Mg/Ml 1 Ml Vial IV 5 mg Q6HR ANA Administration Digoxin 250 mcg 09/03/20 09:00 09/05/20 08:08 Digoxin 250 Mcg Tab PO 250 mcg DAILY ANA Administration Furosemide 40 mg 09/01/20 09:00 09/05/20 08:08 Furosemide 10 Mg/Ml 4 Ml Vial IV 40 mg DAILY ANA Administration Gabapentin 100 mg 08/24/20 22:00 09/05/20 20:19 Gabapentin 100 Mg Cap PO 100 mg TID ANA Administration Diltiazem HCl 125 mg/ Sodium 125 mls @ 15 mls/hr 08/29/20 00:30 09/05/20 19:42 Chloride IV 15 mg/hr .Q8H20M ANA 15 mls/hr Administration 15 MG/HR Propofol 1,000 mg/ IV Solution 100 mls @ 0 mls/hr 08/30/20 20:20 09/05/20 22:24 IV 55 mcg/kg/min .Q0M ANA 34.353 mls/hr Administration Protocol Titrate Insulin Human Regular 100 unit 101 mls @ 0 mls/hr 08/31/20 09:00 09/05/20 22:03 / Sodium Chloride IV 12 units/hr .Q0M ANA 12.12 mls/hr Titration Protocol Per Protocol Norepinephrine Bitartrate 32 250 mls @ 2.776 mls/hr 08/31/20 15:30 09/05/20 22:21 mg/ Sodium Chloride IV 0.03 mcg/kg/min .Q24H ANA 1.388 mls/hr Titration Protocol 0.06 MCG/KG/MIN Piperacillin Sod/Tazobactam 100 mls @ 25 mls/hr 09/03/20 16:00 09/05/20 15:17 Sod 3.375 gm/ Sodium Chloride IVPB 25 mls/hr Q8HR ANA Administration Cytarabine 210 mg/ Sodium 1,010.5 mls @ 42.104 mls/hr 09/03/20 20:00 09/05/20 21:05 Chloride IV 09/06/20 19:59 42.104 mls/hr Q24H ANA Administration Sodium Chloride 1,000 mls @ 75 mls/hr 09/03/20 21:15 09/05/20 15:22 Saline 0.9% IV 75 mls/hr .[id number] ANA Administration Acyclovir Sodium 1,000 mg/ 270 mls @ 270 mls/hr 09/04/20 16:00 09/05/20 15:15 Sodium Chloride IVPB 270 mls/hr Q8HR ANA Administration Anidulafungin 100 mg/ Sodium 100 mls @ 84 mls/hr 09/06/20 09:00 Chloride IVPB DAILY ANA Insulin Human Regular 9.9 unit 08/31/20 10:25 Insulin Regular Bolus (From Drip Bag) 0.1 unit/kg (9.9 unit) 09/30/20 21:00 IV ONCE PRN Blood Sugar - High Magnesium Oxide 400 mg 08/28/20 09:00 09/05/20 08:09 Magnesium Oxide 400 Mg Tab PO 400 mg DAILY ANA Administration Metoprolol Tartrate 100 mg 08/29/20 16:00 09/05/20 20:19 Metoprolol Tartrate 50 Mg Tab PO 100 mg TID ANA Administration Miscellaneous Information 1 each 08/24/20 20:19 Potassium Replacement Protocol 1 Each Misc MISCELLANE DAILY PRN Per Protocol Protocol Miscellaneous Information 1 each 08/24/20 20:20 Magnesium Replacement Protocol 1 Each Misc MISCELLANE DAILY PRN Per Protocol Protocol Pantoprazole Sodium 40 mg 08/31/20 10:45 09/05/20 20:19 Pantoprazole 40 Mg/10 Ml Vial IVP 40 mg BID ANA Administration Potassium Chloride 20 meq 08/28/20 09:00 09/05/20 20:19 Potassium Chloride Er 20 Meq Tab.Er PO 20 meq BID ANA Administration Senna 8.6 mg 09/03/20 21:00 09/05/20 08:09 Sennosides 8.6 Mg Tab PO 8.6 mg DAILY ANA Administration Tamsulosin HCl 0.4 mg 08/24/20 21:00 09/05/20 20:19 Tamsulosin 0.4 Mg Cap.Er.24h PO 0.4 mg BID ANA Administration Objective - Vital Signs Vital signs: Vital Signs Temp 100.6 F H 09/05/20 12:00 Pulse 146 H 09/05/20 14:00 Resp 24 09/05/20 14:00 BP 92/54 09/05/20 14:00 Pulse Ox 92 L 09/05/20 14:00 Intake & Output 09/04/20 09/05/20 09/05/20 18:59 06:59 18:59 Intake Total 2080.804 2049.267 1661.383 Output Total 2340 1425 1760 Balance -259.196 624.267 -98.617 Weight 100.1 kg 104.1 kg Intake: IV 759 1267 518 0.9 240 1195 120 Acyclovir Sodium 1,000 mg 250 250 In Sodium Chloride 0.9% 250 ml @ 270 mls/hr IVPB Q8HR ANA Rx#:[id number] Normal Saline Pressure 69 72 48 Bag Piperacillin-Tazobactam 3 100 .375 gm In Sodium Chloride 0.9% 100 ml @ 25 mls/hr IVPB Q12HR ANA Rx #:[id number] Piperacillin-Tazobactam 3 100 100 .375 gm In Sodium Chloride 0.9% 100 ml @ 25 mls/hr IVPB Q8HR ANA Rx# :[id number] Intake, IV Titration 871.804 622.267 983.383 Amount Anidulafungin 100 mg In 250 Sodium Chloride 0.9% 100 ml @ 84 mls/hr IVPB DAILY ANA Rx#:[id number] Diltiazem 125 mg In 250 118.75 125 Sodium Chloride 0.9% 100 ml @ 15 MG/HR 15 mls/hr IV .Q8H20M ANA Rx#: [id number] Insulin Regular 100 unit 117.009 134.448 70.919 In Sodium Chloride 0.9% 100 ml @ Per Protocol IV .Q0M ANA Rx#:[id number] Norepinephrine 32 mg In 11.902 17.128 Sodium Chloride 0.9% 218 ml @ 0.06 MCG/KG/MIN 2. 776 mls/hr IV .Q24H ANA Rx#:[id number] Sodium Chloride 0.9% 1, 225 000 ml @ 75 mls/hr IV . [id number] ANA Rx#:[id number] propofoL 1,000 mg In 492.893 369.069 295.336 Empty Bag 1 bag @ Titrate IV .Q0M ANA Rx#: [id number] Oral 60 Tube Feeding 240 160 160 Other 150 Output: Urine 2340 1425 1760 Other: Voiding Method Indwelling Catheter Indwelling Catheter Indwelling Catheter # Voids 350 ABP, PAP, CO, CI - Last Documented Arterial Blood Pressure 99/47 - Exam -GENERAL: The patient is intubated and sedated HEENT: Pupils are round and equally reacting to light. EOMI. No scleral icterus. No conjunctival pallor. Normocephalic, atraumatic. No pharyngeal erythema. No thyromegaly. CARDIOVASCULAR: S1 and S2 present. No murmurs, rubs, or gallops. PULMONARY: Chest is clear to auscultation, no wheezing or crackles. ABDOMEN: Soft, nontender, nondistended, normoactive bowel sounds. No palpable organomegaly. MUSCULOSKELETAL: No joint swelling or deformity. EXTREMITIES: No cyanosis, clubbing, or pedal edema. NEUROLOGICAL: Gross neurological examination did not reveal any focal deficits. SKIN: No rashes. no petechiae. - Labs CBC & Chem 7: 09/05/20 14:16 09/05/20 04:10 Labs: Abnormal Lab Results - Last 24 Hours (Table) 09/04/20 09/04/20 09/04/20 Range/Units 16:10 17:16 18:00 WBC (3.8-10.6) k/uL RBC (4.30-5.90) m/uL Hgb (13.0-17.5) gm/dL Hct (39.0-53.0) % MCV (80.0-100.0) fL MCH (25.0-35.0) pg MCHC (31.0-37.0) g/dL RDW (11.5-15.5) % Plt Count (150-450) k/uL Blast Cells % % Neutrophils # (Manual) (1.3-7.7) k/uL Lymphocytes # (Manual) (1.0-4.8) k/uL Monocytes # (Manual) (0-1.0) k/uL Metamyelocytes # (Man) (0) k/uL Myelocytes # (Manual) (0) k/uL Promyelocytes # (Man) (0) k/uL Blast Cells # (Man) (0) k/uL Nucleated RBCs (0-0) /100 WBC PT (9.0-12.0) sec INR (<1.2) APTT (22.0-30.0) sec Fibrinogen (200-500) mg/dL ABG pH (7.35-7.45) ABG pCO2 (35-45) mmHg ABG pO2 (83-108) mmHg ABG O2 Saturation (94-97) % Sodium (137-145) mmol/L Potassium (3.5-5.1) mmol/L Chloride (98-107) mmol/L BUN (9-20) mg/dL Glucose (74-99) mg/dL POC Glucose (mg/dL) 175 H 144 H 143 H (75-99) mg/dL Uric Acid (3.5-8.5) mg/dL Calcium (8.4-10.2) mg/dL Phosphorus (2.5-4.5) mg/dL Magnesium (1.6-2.3) mg/dL AST (17-59) U/L Lactate Dehydrogenase (313-618) U/L Total Protein (6.3-8.2) g/dL Albumin (3.5-5.0) g/dL 09/04/20 09/04/20 09/04/20 Range/Units 19:03 20:27 21:05 WBC (3.8-10.6) k/uL RBC (4.30-5.90) m/uL Hgb (13.0-17.5) gm/dL Hct (39.0-53.0) % MCV (80.0-100.0) fL MCH (25.0-35.0) pg MCHC (31.0-37.0) g/dL RDW (11.5-15.5) % Plt Count (150-450) k/uL Blast Cells % % Neutrophils # (Manual) (1.3-7.7) k/uL Lymphocytes # (Manual) (1.0-4.8) k/uL Monocytes # (Manual) (0-1.0) k/uL Metamyelocytes # (Man) (0) k/uL Myelocytes # (Manual) (0) k/uL Promyelocytes # (Man) (0) k/uL Blast Cells # (Man) (0) k/uL Nucleated RBCs (0-0) /100 WBC PT (9.0-12.0) sec INR (<1.2) APTT (22.0-30.0) sec Fibrinogen (200-500) mg/dL ABG pH (7.35-7.45) ABG pCO2 (35-45) mmHg ABG pO2 (83-108) mmHg ABG O2 Saturation (94-97) % Sodium (137-145) mmol/L Potassium (3.5-5.1) mmol/L Chloride (98-107) mmol/L BUN (9-20) mg/dL Glucose (74-99) mg/dL POC Glucose (mg/dL) 142 H 122 H 120 H (75-99) mg/dL Uric Acid (3.5-8.5) mg/dL Calcium (8.4-10.2) mg/dL Phosphorus (2.5-4.5) mg/dL Magnesium (1.6-2.3) mg/dL AST (17-59) U/L Lactate Dehydrogenase (313-618) U/L Total Protein (6.3-8.2) g/dL Albumin (3.5-5.0) g/dL 09/04/20 09/04/20 09/05/20 Range/Units 22:02 22:56 00:02 WBC (3.8-10.6) k/uL RBC (4.30-5.90) m/uL Hgb (13.0-17.5) gm/dL Hct (39.0-53.0) % MCV (80.0-100.0) fL MCH (25.0-35.0) pg MCHC (31.0-37.0) g/dL RDW (11.5-15.5) % Plt Count (150-450) k/uL Blast Cells % % Neutrophils # (Manual) (1.3-7.7) k/uL Lymphocytes # (Manual) (1.0-4.8) k/uL Monocytes # (Manual) (0-1.0) k/uL Metamyelocytes # (Man) (0) k/uL Myelocytes # (Manual) (0) k/uL Promyelocytes # (Man) (0) k/uL Blast Cells # (Man) (0) k/uL Nucleated RBCs (0-0) /100 WBC PT (9.0-12.0) sec INR (<1.2) APTT (22.0-30.0) sec Fibrinogen (200-500) mg/dL ABG pH (7.35-7.45) ABG pCO2 (35-45) mmHg ABG pO2 (83-108) mmHg ABG O2 Saturation (94-97) % Sodium (137-145) mmol/L Potassium (3.5-5.1) mmol/L Chloride (98-107) mmol/L BUN (9-20) mg/dL Glucose (74-99) mg/dL POC Glucose (mg/dL) 111 H 165 H 141 H (75-99) mg/dL Uric Acid (3.5-8.5) mg/dL Calcium (8.4-10.2) mg/dL Phosphorus (2.5-4.5) mg/dL Magnesium (1.6-2.3) mg/dL AST (17-59) U/L Lactate Dehydrogenase (313-618) U/L Total Protein (6.3-8.2) g/dL Albumin (3.5-5.0) g/dL 09/05/20 09/05/20 09/05/20 Range/Units 01:14 02:17 03:06 WBC (3.8-10.6) k/uL RBC (4.30-5.90) m/uL Hgb (13.0-17.5) gm/dL Hct (39.0-53.0) % MCV (80.0-100.0) fL MCH (25.0-35.0) pg MCHC (31.0-37.0) g/dL RDW (11.5-15.5) % Plt Count (150-450) k/uL Blast Cells % % Neutrophils # (Manual) (1.3-7.7) k/uL Lymphocytes # (Manual) (1.0-4.8) k/uL Monocytes # (Manual) (0-1.0) k/uL Metamyelocytes # (Man) (0) k/uL Myelocytes # (Manual) (0) k/uL Promyelocytes # (Man) (0) k/uL Blast Cells # (Man) (0) k/uL Nucleated RBCs (0-0) /100 WBC PT (9.0-12.0) sec INR (<1.2) APTT (22.0-30.0) sec Fibrinogen (200-500) mg/dL ABG pH (7.35-7.45) ABG pCO2 (35-45) mmHg ABG pO2 (83-108) mmHg ABG O2 Saturation (94-97) % Sodium (137-145) mmol/L Potassium (3.5-5.1) mmol/L Chloride (98-107) mmol/L BUN (9-20) mg/dL Glucose (74-99) mg/dL POC Glucose (mg/dL) 137 H 178 H 167 H (75-99) mg/dL Uric Acid (3.5-8.5) mg/dL Calcium (8.4-10.2) mg/dL Phosphorus (2.5-4.5) mg/dL Magnesium (1.6-2.3) mg/dL AST (17-59) U/L Lactate Dehydrogenase (313-618) U/L Total Protein (6.3-8.2) g/dL Albumin (3.5-5.0) g/dL 09/05/20 09/05/20 09/05/20 Range/Units 04:09 04:10 04:10 WBC 33.7 H (3.8-10.6) k/uL RBC 1.91 L (4.30-5.90) m/uL Hgb 7.1 L (13.0-17.5) gm/dL Hct 19.3 L* (39.0-53.0) % MCV 101.2 H (80.0-100.0) fL MCH 37.1 H (25.0-35.0) pg MCHC (31.0-37.0) g/dL RDW 18.3 H (11.5-15.5) % Plt Count 74 L (150-450) k/uL Blast Cells % 44 H* % Neutrophils # (Manual) 14.40 H (1.3-7.7) k/uL Lymphocytes # (Manual) (1.0-4.8) k/uL Monocytes # (Manual) 1.01 H (0-1.0) k/uL Metamyelocytes # (Man) (0) k/uL Myelocytes # (Manual) 1.69 H (0) k/uL Promyelocytes # (Man) (0) k/uL Blast Cells # (Man) 14.83 H (0) k/uL Nucleated RBCs (0-0) /100 WBC PT 13.0 H (9.0-12.0) sec INR 1.3 H (<1.2) APTT 20.8 L (22.0-30.0) sec Fibrinogen 158 L (200-500) mg/dL ABG pH (7.35-7.45) ABG pCO2 (35-45) mmHg ABG pO2 (83-108) mmHg ABG O2 Saturation (94-97) % Sodium (137-145) mmol/L Potassium (3.5-5.1) mmol/L Chloride (98-107) mmol/L BUN (9-20) mg/dL Glucose (74-99) mg/dL POC Glucose (mg/dL) 165 H (75-99) mg/dL Uric Acid (3.5-8.5) mg/dL Calcium (8.4-10.2) mg/dL Phosphorus (2.5-4.5) mg/dL Magnesium (1.6-2.3) mg/dL AST (17-59) U/L Lactate Dehydrogenase (313-618) U/L Total Protein (6.3-8.2) g/dL Albumin (3.5-5.0) g/dL 09/05/20 09/05/20 09/05/20 Range/Units 04:10 05:22 05:30 WBC (3.8-10.6) k/uL RBC (4.30-5.90) m/uL Hgb (13.0-17.5) gm/dL Hct (39.0-53.0) % MCV (80.0-100.0) fL MCH (25.0-35.0) pg MCHC (31.0-37.0) g/dL RDW (11.5-15.5) % Plt Count (150-450) k/uL Blast Cells % % Neutrophils # (Manual) (1.3-7.7) k/uL Lymphocytes # (Manual) (1.0-4.8) k/uL Monocytes # (Manual) (0-1.0) k/uL Metamyelocytes # (Man) (0) k/uL Myelocytes # (Manual) (0) k/uL Promyelocytes # (Man) (0) k/uL Blast Cells # (Man) (0) k/uL Nucleated RBCs (0-0) /100 WBC PT (9.0-12.0) sec INR (<1.2) APTT (22.0-30.0) sec Fibrinogen (200-500) mg/dL ABG pH 7.46 H (7.35-7.45) ABG pCO2 32 L (35-45) mmHg ABG pO2 121 H (83-108) mmHg ABG O2 Saturation 98.7 H (94-97) % Sodium 147 H (137-145) mmol/L Potassium 5.2 H (3.5-5.1) mmol/L Chloride 121 H (98-107) mmol/L BUN 44 H (9-20) mg/dL Glucose 157 H (74-99) mg/dL POC Glucose (mg/dL) 151 H (75-99) mg/dL Uric Acid 3.1 L (3.5-8.5) mg/dL Calcium 7.3 L (8.4-10.2) mg/dL Phosphorus 5.0 H (2.5-4.5) mg/dL Magnesium 2.9 H (1.6-2.3) mg/dL AST 80 H (17-59) U/L Lactate Dehydrogenase 60775 H (313-618) U/L Total Protein 4.9 L (6.3-8.2) g/dL Albumin 2.6 L (3.5-5.0) g/dL 09/05/20 09/05/20 09/05/20 Range/Units 06:15 07:05 08:02 WBC (3.8-10.6) k/uL RBC (4.30-5.90) m/uL Hgb (13.0-17.5) gm/dL Hct (39.0-53.0) % MCV (80.0-100.0) fL MCH (25.0-35.0) pg MCHC (31.0-37.0) g/dL RDW (11.5-15.5) % Plt Count (150-450) k/uL Blast Cells % % Neutrophils # (Manual) (1.3-7.7) k/uL Lymphocytes # (Manual) (1.0-4.8) k/uL Monocytes # (Manual) (0-1.0) k/uL Metamyelocytes # (Man) (0) k/uL Myelocytes # (Manual) (0) k/uL Promyelocytes # (Man) (0) k/uL Blast Cells # (Man) (0) k/uL Nucleated RBCs (0-0) /100 WBC PT (9.0-12.0) sec INR (<1.2) APTT (22.0-30.0) sec Fibrinogen (200-500) mg/dL ABG pH (7.35-7.45) ABG pCO2 (35-45) mmHg ABG pO2 (83-108) mmHg ABG O2 Saturation (94-97) % Sodium (137-145) mmol/L Potassium (3.5-5.1) mmol/L Chloride (98-107) mmol/L BUN (9-20) mg/dL Glucose (74-99) mg/dL POC Glucose (mg/dL) 140 H 129 H 174 H (75-99) mg/dL Uric Acid (3.5-8.5) mg/dL Calcium (8.4-10.2) mg/dL Phosphorus (2.5-4.5) mg/dL Magnesium (1.6-2.3) mg/dL AST (17-59) U/L Lactate Dehydrogenase (313-618) U/L Total Protein (6.3-8.2) g/dL Albumin (3.5-5.0) g/dL 09/05/20 09/05/20 09/05/20 Range/Units 10:11 11:41 13:49 WBC (3.8-10.6) k/uL RBC (4.30-5.90) m/uL Hgb (13.0-17.5) gm/dL Hct (39.0-53.0) % MCV (80.0-100.0) fL MCH (25.0-35.0) pg MCHC (31.0-37.0) g/dL RDW (11.5-15.5) % Plt Count (150-450) k/uL Blast Cells % % Neutrophils # (Manual) (1.3-7.7) k/uL Lymphocytes # (Manual) (1.0-4.8) k/uL Monocytes # (Manual) (0-1.0) k/uL Metamyelocytes # (Man) (0) k/uL Myelocytes # (Manual) (0) k/uL Promyelocytes # (Man) (0) k/uL Blast Cells # (Man) (0) k/uL Nucleated RBCs (0-0) /100 WBC PT (9.0-12.0) sec INR (<1.2) APTT (22.0-30.0) sec Fibrinogen (200-500) mg/dL ABG pH (7.35-7.45) ABG pCO2 (35-45) mmHg ABG pO2 (83-108) mmHg ABG O2 Saturation (94-97) % Sodium (137-145) mmol/L Potassium (3.5-5.1) mmol/L Chloride (98-107) mmol/L BUN (9-20) mg/dL Glucose (74-99) mg/dL POC Glucose (mg/dL) 193 H 170 H 141 H (75-99) mg/dL Uric Acid (3.5-8.5) mg/dL Calcium (8.4-10.2) mg/dL Phosphorus (2.5-4.5) mg/dL Magnesium (1.6-2.3) mg/dL AST (17-59) U/L Lactate Dehydrogenase (313-618) U/L Total Protein (6.3-8.2) g/dL Albumin (3.5-5.0) g/dL 09/05/20 Range/Units 14:16 WBC 27.1 H (3.8-10.6) k/uL RBC 1.95 L (4.30-5.90) m/uL Hgb 7.3 L (13.0-17.5) gm/dL Hct 19.6 L* (39.0-53.0) % MCV 100.4 H (80.0-100.0) fL MCH 37.5 H (25.0-35.0) pg MCHC 37.3 H (31.0-37.0) g/dL RDW 18.3 H (11.5-15.5) % Plt Count 84 L (150-450) k/uL Blast Cells % 30 H* % Neutrophils # (Manual) 10.00 H (1.3-7.7) k/uL Lymphocytes # (Manual) 0.81 L (1.0-4.8) k/uL Monocytes # (Manual) (0-1.0) k/uL Metamyelocytes # (Man) 2.71 H (0) k/uL Myelocytes # (Manual) 4.34 H (0) k/uL Promyelocytes # (Man) 0.27 H (0) k/uL Blast Cells # (Man) 8.13 H (0) k/uL Nucleated RBCs 4 H (0-0) /100 WBC PT (9.0-12.0) sec INR (<1.2) APTT (22.0-30.0) sec Fibrinogen (200-500) mg/dL ABG pH (7.35-7.45) ABG pCO2 (35-45) mmHg ABG pO2 (83-108) mmHg ABG O2 Saturation (94-97) % Sodium (137-145) mmol/L Potassium (3.5-5.1) mmol/L Chloride (98-107) mmol/L BUN (9-20) mg/dL Glucose (74-99) mg/dL POC Glucose (mg/dL) (75-99) mg/dL Uric Acid (3.5-8.5) mg/dL Calcium (8.4-10.2) mg/dL Phosphorus (2.5-4.5) mg/dL Magnesium (1.6-2.3) mg/dL AST (17-59) U/L Lactate Dehydrogenase (313-618) U/L Total Protein (6.3-8.2) g/dL Albumin (3.5-5.0) g/dL Microbiology - Last 24 Hours (Table) 09/04/20 11:11 Blood Culture - Preliminary Blood No Growth after 24 hours 09/04/20 11:11 Gram Stain - Preliminary Sputum Sputum Culture - Preliminary 09/04/20 11:11 Urine Culture - Preliminary Urine,Catheterized 08/31/20 10:30 Fungal Culture - Preliminary Bronchial Washings - Random [place] albicans Assessment and Plan Assessment: Acute lung injury secondary to a bowel therapy Sepsis, fever with leukocytosis, and no source of infection, possible r espiratory 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 Continue with antibiotics as per infectious disease recommendation, continue with amiodarone, digoxin, Lopressor and Cardizem as per cardiology team. Pulmonary team are following the case closely for his management of his ventilation. Also patient on chemotherapy as per oncology team Labs and medication were reviewed.. Continue same treatment. Continue with s ymptomatic treatment. Resume home medication. Monitor lytes and vitals. DVT and GI prophylaxis. Further recommendations of the clinical course of the patient DVT prophylaxis: Not to calculation for thrombocytopenia heparin GI Prophylaxis: Pepcid or PPI Prognosis is guarded
[2020-09-06 00:05] LABS: Glucose,Whole Blood 128 mg/dL (75-99)
[2020-09-06 01:03] LABS: Glucose,Whole Blood 145 mg/dL (75-99)
[2020-09-06] MEDS: SODIUM CHLORIDE 0.9% 1,000 ML IV SCH (01:59)
[2020-09-06 02:02] LABS: Glucose,Whole Blood 149 mg/dL (75-99)
[2020-09-06 03:10] LABS: Glucose,Whole Blood 131 mg/dL (75-99)
[2020-09-06 03:54] LABS: Anisocytosis Slight; HGB 7.4 gm/dL (13.0-17.5); Hypochromasia Slight; MCH 39.6 pg (25.0-35.0); MCV 100.6 fL (80.0-100.0); Macrocytosis Moderate; Mean Platelet Volume 9.3; Platelet Count 75 k/uL (150-450); Poikilocytosis Slight; RBC 1.87 m/uL (4.30-5.90); RDW 18.5 % (11.5-15.5); WBC 32.2 k/uL (3.8-10.6)
[2020-09-06 03:55] LABS: MCHC 39.3 g/dL (31.0-37.0)
[2020-09-06 04:01] LABS: HCT 18.8 % (39.0-53.0)
[2020-09-06] MEDS: DILTIAZEM 125 MG in SODIUM CHLORIDE 0.9% 100 ML IV SCH ×3 (04:04→19:11)
[2020-09-06 04:07] LABS: Albumin 2.6 g/dL (3.5-5.0); Calcium 7.3 mg/dL (8.4-10.2); Magnesium 2.8 mg/dL (1.6-2.3); Phosphorus 4.5 mg/dL (2.5-4.5); Potassium 5.2 mmol/L (3.5-5.1); Total Bilirubin 0.7 mg/dL (0.2-1.3); Total Protein 5.1 g/dL (6.3-8.2); Uric Acid 3.3 mg/dL (3.5-8.5)
[2020-09-06] MEDS: ACETAMINOPHEN TAB 500 MG TAB PO PRN ×2 (04:08→08:15)
[2020-09-06 04:15] LABS: Glucose,Whole Blood 164 mg/dL (75-99)
[2020-09-06 04:41] LABS: Allen Test Performed? Yes
[2020-09-06 04:43] LABS: ABG Base Excess -3.5 mmol/L; ABG HCO3 21 mmol/L (21-25); ABG Oxygen Saturation 96.9 % (94-97); ABG PCO2 31 mmHg (35-45); ABG PH 7.43 (7.35-7.45); ABG PO2 87 mmHg (83-108); ABG TCO2 22 mmol/L (19-24)
[2020-09-06 04:44] LABS: INR 1.3 (<1.2); Partial Thromboplastin Time 21.8 sec (22.0-30.0)
[2020-09-06 04:57] LABS: Band Neutrophils % 2 %; Lymphocytes # (M) 5.15 k/uL (1.0-4.8); Monocytes # (M) 0.32 k/uL (0-1.0); Neutrophils % (M) 34 %
[2020-09-06 04:58] LABS: Blast Cells # (M) 15.13 k/uL (0); Nucleated Red Blood Cells 0 /100 WBC (0-0); Total Cells Counted 200
[2020-09-06 05:03] LABS: Glucose,Whole Blood 157 mg/dL (75-99)
[2020-09-06] MEDS: DEXAMETHASONE SOD PHOSPHATE 4 MG/ML 1 ML VIAL IV SCH ×3 (05:12→18:51)
[2020-09-06 06:07] LABS: Glucose,Whole Blood 163 mg/dL (75-99)
[2020-09-06] MEDS: INSULIN REGULAR 100 UNIT in SODIUM CHLORIDE 0.9% 100 ML IV SCH (06:08)
[2020-09-06 06:58] LABS: Glucose,Whole Blood 149 mg/dL (75-99)
--- NOTE | 2020-09-06 07:08 | XR ---
EXAMINATION TYPE: XR chest 1V portable DATE OF EXAM: 09/06/2020 COMPARISON: 09/05/2020 HISTORY: SOB, Follow Up FINDINGS: Indwelling tubes and catheters are unchanged. Persistent basilar infiltrates however there is improved aeration right lower lobe. Continued progres s studies are advised. Stable appearance of the cardio-mediastinal structures at this time. Pleural effusion unchanged. IMPRESSION: 1. Persistent basilar infiltrates however there is improved aeration right lower lobe. Continued pro elsa studies are advised.
[2020-09-06] MEDS: ACYCLOVIR SODIUM 1,000 MG in SODIUM CHLORIDE 0.9% 250 ML IVPB SCH ×2 (07:47→15:36)
[2020-09-06] MEDS: PIPERACILLIN-TAZOBACTAM 3.375 GM in SODIUM CHLORIDE 0.9% 100 ML IVPB SCH ×2 (07:48→15:36)
[2020-09-06] MEDS: CHLORHEXIDINE GLUCONATE 15 ML CUP MUCOUS MEM SCH ×2 (07:50→19:44)
[2020-09-06] MEDS: SENNOSIDES 8.6 MG TAB PO SCH (07:50)
[2020-09-06] MEDS: METOPROLOL TARTRATE 50 MG TAB PO SCH ×3 (07:50→19:44)
[2020-09-06] MEDS: FUROSEMIDE 10 MG/ML 4 ML VIAL IV SCH (07:50)
[2020-09-06] MEDS: TAMSULOSIN 0.4 MG CAP.ER.24H PO SCH ×2 (07:51→19:45)
[2020-09-06] MEDS: ANIDULAFUNGIN 100 MG in SODIUM CHLORIDE 0.9% 100 ML IVPB SCH (07:51)
[2020-09-06] MEDS: GABAPENTIN 100 MG CAP PO SCH ×3 (07:51→19:44)
[2020-09-06] MEDS: PANTOPRAZOLE 40 MG/10 ML VIAL IVP SCH ×2 (07:51→19:45)
[2020-09-06] MEDS: DIGOXIN 250 MCG TAB PO SCH (07:51)
[2020-09-06] MEDS: AMIODARONE 200 MG TAB PO SCH ×2 (07:51→19:44)
[2020-09-06] MEDS: MAGNESIUM OXIDE 400 MG TAB PO SCH (07:51)
[2020-09-06] MEDS: POTASSIUM CHLORIDE ER 20 MEQ TAB.ER PO SCH ×2 (07:52→19:45)
[2020-09-06 08:15] LABS: Glucose,Whole Blood 141 mg/dL (75-99)
[2020-09-06] MEDS: SODIUM CHLORIDE 0.45% 1,000 ML IV SCH ×2 (09:03→21:56)
--- NOTE | 2020-09-06 10:03 | P.PN ---
Subjective Progress Note Date: 09/06/20 Progress Note Date: 09/06/20 This is a pleasant 75-year-old male currently undergoing chemotherapy. He is in the intensive care unit currently intubated on levophed. He continues to be atrial flutter with rapid rates. Heart rates have been fluctuating from the 110s up to the 150s. Currently in the 120s. Patient is on lopressor 100 3 times a day, cardizem drip at 15, digoxin 250 g and amiodarone. Patient currently on sedation holiday however does not follow commands on ventilator. Patient still under going chemotherapy. White blood cell count 32.2 with 47% bl asts, hemoglobin 7.4 and platelets 75. Sodium noted to be elevated at 148 with potassium 5.2. He has been receiving Lasix 40 mg IV daily GENERAL: No acute distress. On ventilator NECK: Supple without JVD or thyromegaly. LUNGS: Bibasilar rales, no wheezes or rhonchi Respiration equal and unlabored. Diminished. HEART: Irregular rate and rhythm with 4/6 systolic ejection murmur at the base, no rubs or gallops. S1 and S2 heard. EXTREMITIES: Normal range of motion, bilateral lower extremity trace pitting edema. No clubbing or cyanosis. Peripheral pulses intact. ASSESSMENT Paroxysmal atrial fibrillation/ atrial flutter with rapid ventricular response. History of cardioversion 2018 Acute on chronic systolic heart failure Aortic stenosis, moderate by most recent echo New-onset cardiomyopathy with ejection fraction 30-35%, possibly tachycardia induced however apical hypokinesis possibly consistent with Takatsubo CMP. History of Hypertension Dyslipidemia Diabetes mellitus Hypotension on pressors Acute leukemia with blast crisis PLAN Continue supportive management with pressors as needed, AV tameka blocking agents including Cardizem drip, metoprolol 100 twice a day, digoxin. Continue amiodarone 400 mg twice a day. No cardioversion currently given patient is not an anticoagulation candidate given his thrombocytopenia and anemia from chemotherapy. Continue supportive care for his cardiomyopathy, possible Takatsubo with apical hypokinesis noted or tachycardia induced. Continue Lasix 40 mg daily and monitor ins and outs. Hypernatremia noted and monitor ins and outs. He appears anasarcic on exam likely also related to hypoalbuminemia and third spacing. Prognosis guarded, further recommendations to follow. Objective - Vital Signs Vital signs: Vital Signs Temp 102.2 F H 09/06/20 08:00 Pulse 125 H 09/06/20 09:30 Resp 28 H 09/06/20 09:30 BP 110/58 09/06/20 08:30 Pulse Ox 98 09/06/20 09:30 Intake & Output 09/05/20 09/06/20 09/06/20 18:59 06:59 18:59 Intake Total 2260.633 2298.641 967.242 Output Total 2160 1355 1190 Balance 100.633 943.641 -222.758 Weight 105.415 kg Intake: IV 892 1247 443 0.9 120 825 75 Acyclovir Sodium 1,000 mg 500 250 250 In Sodium Chloride 0.9% 250 ml @ 270 mls/hr IVPB Q8HR ANA Rx#:[id number] Normal Saline Pressure 72 72 18 Bag Piperacillin-Tazobactam 3 200 100 100 .375 gm In Sodium Chloride 0.9% 100 ml @ 25 mls/hr IVPB Q8HR ANA Rx# :[id number] Intake, IV Titration 1108.633 721.641 324.242 Amount Anidulafungin 100 mg In 250 100 Sodium Chloride 0.9% 100 ml @ 84 mls/hr IVPB DAILY ANA Rx#:[id number] Diltiazem 125 mg In 125 245.75 Sodium Chloride 0.9% 100 ml @ 15 MG/HR 15 mls/hr IV .Q8H20M ANA Rx#: [id number] Insulin Regular 100 unit 96.169 112.195 In Sodium Chloride 0.9% 100 ml @ Per Protocol IV .Q0M ANA Rx#:[id number] Norepinephrine 32 mg In 17.128 0 13.787 Sodium Chloride 0.9% 218 ml @ 0.06 MCG/KG/MIN 2. 776 mls/hr IV .Q24H ANA Rx#:[id number] Sodium Chloride 0.45% 1, 75 000 ml @ 75 mls/hr IV . P77Q13H ANA Rx#:[id number] Sodium Chloride 0.9% 1, 225 75 000 ml @ 75 mls/hr IV . [id number] ANA Rx#:[id number] propofoL 1,000 mg In 395.336 363.696 60.455 Empty Bag 1 bag @ Titrate IV .Q0M ANA Rx#: [id number] Tube Feeding 260 240 80 Other 90 120 Output: Urine 2160 1355 1190 Other: Voiding Method Indwelling Catheter Indwelling Catheter Indwelling Catheter # Bowel Movements 1 1 ABP, PAP, CO, CI - Last Documented Arterial Blood Pressure 141/58 - Labs CBC & Chem 7: 09/06/20 03:35 09/06/20 03:35 Labs: Abnormal Lab Results - Last 24 Hours (Table) 09/05/20 09/05/20 09/05/20 Range/Units 10:11 11:41 13:49 WBC (3.8-10.6) k/uL RBC (4.30-5.90) m/uL Hgb (13.0-17.5) gm/dL Hct (39.0-53.0) % MCV (80.0-100.0) fL MCH (25.0-35.0) pg MCHC (31.0-37.0) g/dL RDW (11.5-15.5) % Plt Count (150-450) k/uL Blast Cells % % Neutrophils # (Manual) (1.3-7.7) k/uL Lymphocytes # (Manual) (1.0-4.8) k/uL Metamyelocytes # (Man) (0) k/uL Myelocytes # (Manual) (0) k/uL Promyelocytes # (Man) (0) k/uL Blast Cells # (Man) (0) k/uL Nucleated RBCs (0-0) /100 WBC PT (9.0-12.0) sec INR (<1.2) APTT (22.0-30.0) sec Fibrinogen (200-500) mg/dL D-Dimer (<0.60) mg/L FEU ABG pCO2 (35-45) mmHg Sodium (137-145) mmol/L Potassium (3.5-5.1) mmol/L Chloride (98-107) mmol/L BUN (9-20) mg/dL Glucose (74-99) mg/dL POC Glucose (mg/dL) 193 H 170 H 141 H (75-99) mg/dL Uric Acid (3.5-8.5) mg/dL Calcium (8.4-10.2) mg/dL Magnesium (1.6-2.3) mg/dL AST (17-59) U/L Lactate Dehydrogenase (313-618) U/L Total Protein (6.3-8.2) g/dL Albumin (3.5-5.0) g/dL 09/05/20 09/05/20 09/05/20 Range/Units 14:16 14:16 16:19 WBC 27.1 H (3.8-10.6) k/uL RBC 1.95 L (4.30-5.90) m/uL Hgb 7.3 L (13.0-17.5) gm/dL Hct 19.6 L* (39.0-53.0) % MCV 100.4 H (80.0-100.0) fL MCH 37.5 H (25.0-35.0) pg MCHC 37.3 H (31.0-37.0) g/dL RDW 18.3 H (11.5-15.5) % Plt Count 84 L (150-450) k/uL Blast Cells % 30 H* % Neutrophils # (Manual) 10.00 H (1.3-7.7) k/uL Lymphocytes # (Manual) 0.81 L (1.0-4.8) k/uL Metamyelocytes # (Man) 2.71 H (0) k/uL Myelocytes # (Manual) 4.34 H (0) k/uL Promyelocytes # (Man) 0.27 H (0) k/uL Blast Cells # (Man) 8.13 H (0) k/uL Nucleated RBCs 4 H (0-0) /100 WBC PT (9.0-12.0) sec INR (<1.2) APTT (22.0-30.0) sec Fibrinogen 140 L (200-500) mg/dL D-Dimer 22.89 H (<0.60) mg/L FEU ABG pCO2 (35-45) mmHg Sodium (137-145) mmol/L Potassium (3.5-5.1) mmol/L Chloride (98-107) mmol/L BUN (9-20) mg/dL Glucose (74-99) mg/dL POC Glucose (mg/dL) 109 H (75-99) mg/dL Uric Acid (3.5-8.5) mg/dL Calcium (8.4-10.2) mg/dL Magnesium (1.6-2.3) mg/dL AST (17-59) U/L Lactate Dehydrogenase (313-618) U/L Total Protein (6.3-8.2) g/dL Albumin (3.5-5.0) g/dL 09/05/20 09/05/20 09/05/20 Range/Units 20:09 21:14 22:03 WBC (3.8-10.6) k/uL RBC (4.30-5.90) m/uL Hgb (13.0-17.5) gm/dL Hct (39.0-53.0) % MCV (80.0-100.0) fL MCH (25.0-35.0) pg MCHC (31.0-37.0) g/dL RDW (11.5-15.5) % Plt Count (150-450) k/uL Blast Cells % % Neutrophils # (Manual) (1.3-7.7) k/uL Lymphocytes # (Manual) (1.0-4.8) k/uL Metamyelocytes # (Man) (0) k/uL Myelocytes # (Manual) (0) k/uL Promyelocytes # (Man) (0) k/uL Blast Cells # (Man) (0) k/uL Nucleated RBCs (0-0) /100 WBC PT (9.0-12.0) sec INR (<1.2) APTT (22.0-30.0) sec Fibrinogen (200-500) mg/dL D-Dimer (<0.60) mg/L FEU ABG pCO2 (35-45) mmHg Sodium (137-145) mmol/L Potassium (3.5-5.1) mmol/L Chloride (98-107) mmol/L BUN (9-20) mg/dL Glucose (74-99) mg/dL POC Glucose (mg/dL) 196 H 182 H 154 H (75-99) mg/dL Uric Acid (3.5-8.5) mg/dL Calcium (8.4-10.2) mg/dL Magnesium (1.6-2.3) mg/dL AST (17-59) U/L Lactate Dehydrogenase (313-618) U/L Total Protein (6.3-8.2) g/dL Albumin (3.5-5.0) g/dL 09/05/20 09/06/20 09/06/20 Range/Units 23:02 00:03 01:01 WBC (3.8-10.6) k/uL RBC (4.30-5.90) m/uL Hgb (13.0-17.5) gm/dL Hct (39.0-53.0) % MCV (80.0-100.0) fL MCH (25.0-35.0) pg MCHC (31.0-37.0) g/dL RDW (11.5-15.5) % Plt Count (150-450) k/uL Blast Cells % % Neutrophils # (Manual) (1.3-7.7) k/uL Lymphocytes # (Manual) (1.0-4.8) k/uL Metamyelocytes # (Man) (0) k/uL Myelocytes # (Manual) (0) k/uL Promyelocytes # (Man) (0) k/uL Blast Cells # (Man) (0) k/uL Nucleated RBCs (0-0) /100 WBC PT (9.0-12.0) sec INR (<1.2) APTT (22.0-30.0) sec Fibrinogen (200-500) mg/dL D-Dimer (<0.60) mg/L FEU ABG pCO2 (35-45) mmHg Sodium (137-145) mmol/L Potassium (3.5-5.1) mmol/L Chloride (98-107) mmol/L BUN (9-20) mg/dL Glucose (74-99) mg/dL POC Glucose (mg/dL) 144 H 128 H 145 H (75-99) mg/dL Uric Acid (3.5-8.5) mg/dL Calcium (8.4-10.2) mg/dL Magnesium (1.6-2.3) mg/dL AST (17-59) U/L Lactate Dehydrogenase (313-618) U/L Total Protein (6.3-8.2) g/dL Albumin (3.5-5.0) g/dL 09/06/20 09/06/20 09/06/20 Range/Units 02:00 03:07 03:35 WBC 32.2 H (3.8-10.6) k/uL RBC 1.87 L (4.30-5.90) m/uL Hgb 7.4 L (13.0-17.5) gm/dL Hct 18.8 L* (39.0-53.0) % MCV 100.6 H (80.0-100.0) fL MCH 39.6 H (25.0-35.0) pg MCHC 39.3 H (31.0-37.0) g/dL RDW 18.5 H (11.5-15.5) % Plt Count 75 L (150-450) k/uL Blast Cells % 47 H* % Neutrophils # (Manual) 11.50 H (1.3-7.7) k/uL Lymphocytes # (Manual) 5.15 H (1.0-4.8) k/uL Metamyelocytes # (Man) (0) k/uL Myelocytes # (Manual) (0) k/uL Promyelocytes # (Man) (0) k/uL Blast Cells # (Man) 15.13 H (0) k/uL Nucleated RBCs (0-0) /100 WBC PT (9.0-12.0) sec INR (<1.2) APTT (22.0-30.0) sec Fibrinogen (200-500) mg/dL D-Dimer (<0.60) mg/L FEU ABG pCO2 (35-45) mmHg Sodium (137-145) mmol/L Potassium (3.5-5.1) mmol/L Chloride (98-107) mmol/L BUN (9-20) mg/dL Glucose (74-99) mg/dL POC Glucose (mg/dL) 149 H 131 H (75-99) mg/dL Uric Acid (3.5-8.5) mg/dL Calcium (8.4-10.2) mg/dL Magnesium (1.6-2.3) mg/dL AST (17-59) U/L Lactate Dehydrogenase (313-618) U/L Total Protein (6.3-8.2) g/dL Albumin (3.5-5.0) g/dL 09/06/20 09/06/20 09/06/20 Range/Units 03:35 03:35 04:13 WBC (3.8-10.6) k/uL RBC (4.30-5.90) m/uL Hgb (13.0-17.5) gm/dL Hct (39.0-53.0) % MCV (80.0-100.0) fL MCH (25.0-35.0) pg MCHC (31.0-37.0) g/dL RDW (11.5-15.5) % Plt Count (150-450) k/uL Blast Cells % % Neutrophils # (Manual) (1.3-7.7) k/uL Lymphocytes # (Manual) (1.0-4.8) k/uL Metamyelocytes # (Man) (0) k/uL Myelocytes # (Manual) (0) k/uL Promyelocytes # (Man) (0) k/uL Blast Cells # (Man) (0) k/uL Nucleated RBCs (0-0) /100 WBC PT 13.0 H (9.0-12.0) sec INR 1.3 H (<1.2) APTT 21.8 L (22.0-30.0) sec Fibrinogen 95 L (200-500) mg/dL D-Dimer (<0.60) mg/L FEU ABG pCO2 (35-45) mmHg Sodium 148 H (137-145) mmol/L Potassium 5.2 H (3.5-5.1) mmol/L Chloride 123 H (98-107) mmol/L BUN 41 H (9-20) mg/dL Glucose 143 H (74-99) mg/dL POC Glucose (mg/dL) 164 H (75-99) mg/dL Uric Acid 3.3 L (3.5-8.5) mg/dL Calcium 7.3 L (8.4-10.2) mg/dL Magnesium 2.8 H (1.6-2.3) mg/dL AST 92 H (17-59) U/L Lactate Dehydrogenase 44306 H (313-618) U/L Total Protein 5.1 L (6.3-8.2) g/dL Albumin 2.6 L (3.5-5.0) g/dL 09/06/20 09/06/20 09/06/20 Range/Units 04:38 05:01 06:06 WBC (3.8-10.6) k/uL RBC (4.30-5.90) m/uL Hgb (13.0-17.5) gm/dL Hct (39.0-53.0) % MCV (80.0-100.0) fL MCH (25.0-35.0) pg MCHC (31.0-37.0) g/dL RDW (11.5-15.5) % Plt Count (150-450) k/uL Blast Cells % % Neutrophils # (Manual) (1.3-7.7) k/uL Lymphocytes # (Manual) (1.0-4.8) k/uL Metamyelocytes # (Man) (0) k/uL Myelocytes # (Manual) (0) k/uL Promyelocytes # (Man) (0) k/uL Blast Cells # (Man) (0) k/uL Nucleated RBCs (0-0) /100 WBC PT (9.0-12.0) sec INR (<1.2) APTT (22.0-30.0) sec Fibrinogen (200-500) mg/dL D-Dimer (<0.60) mg/L FEU ABG pCO2 31 L (35-45) mmHg Sodium (137-145) mmol/L Potassium (3.5-5.1) mmol/L Chloride (98-107) mmol/L BUN (9-20) mg/dL Glucose (74-99) mg/dL POC Glucose (mg/dL) 157 H 163 H (75-99) mg/dL Uric Acid (3.5-8.5) mg/dL Calcium (8.4-10.2) mg/dL Magnesium (1.6-2.3) mg/dL AST (17-59) U/L Lactate Dehydrogenase (313-618) U/L Total Protein (6.3-8.2) g/dL Albumin (3.5-5.0) g/dL 09/06/20 09/06/20 Range/Units 06:58 08:12 WBC (3.8-10.6) k/uL RBC (4.30-5.90) m/uL Hgb (13.0-17.5) gm/dL Hct (39.0-53.0) % MCV (80.0-100.0) fL MCH (25.0-35.0) pg MCHC (31.0-37.0) g/dL RDW (11.5-15.5) % Plt Count (150-450) k/uL Blast Cells % % Neutrophils # (Manual) (1.3-7.7) k/uL Lymphocytes # (Manual) (1.0-4.8) k/uL Metamyelocytes # (Man) (0) k/uL Myelocytes # (Manual) (0) k/uL Promyelocytes # (Man) (0) k/uL Blast Cells # (Man) (0) k/uL Nucleated RBCs (0-0) /100 WBC PT (9.0-12.0) sec INR (<1.2) APTT (22.0-30.0) sec Fibrinogen (200-500) mg/dL D-Dimer (<0.60) mg/L FEU ABG pCO2 (35-45) mmHg Sodium (137-145) mmol/L Potassium (3.5-5.1) mmol/L Chloride (98-107) mmol/L BUN (9-20) mg/dL Glucose (74-99) mg/dL POC Glucose (mg/dL) 149 H 141 H (75-99) mg/dL Uric Acid (3.5-8.5) mg/dL Calcium (8.4-10.2) mg/dL Magnesium (1.6-2.3) mg/dL AST (17-59) U/L Lactate Dehydrogenase (313-618) U/L Total Protein (6.3-8.2) g/dL Albumin (3.5-5.0) g/dL Microbiology - Last 24 Hours (Table) 09/04/20 11:11 Urine Culture - Final Urine,Catheterized 09/04/20 11:11 Blood Culture - Preliminary Blood No Growth after 24 hours
[2020-09-06 10:14] LABS: Glucose,Whole Blood 128 mg/dL (75-99)
--- NOTE | 2020-09-06 11:16 | P.PN ---
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 The patient got transferred to the intensive care unit yesterday because of an acute hypoxic respiratory failu re/acute lung injury with development of bilateral pulmonary infiltrates. Note that the patient was originally hospitalized on 08/24/2024 shortness of breath and difficulty breathing. The patient is known to have chronic atrial fibrillation along with hypertension and hyperlipidemia. He was also being seen by cardiology regarding atrial fibrillation. As the patient developed breath and pulmonary infiltrates and acute hypoxic respiratory failure, the patient a chest to the intensive care unit and he was placed on a BiPAP at a pressure of 14/5 cm of water. FiO2 was as high as 90% and it was being titrated. The patient also had been placed on broad-spectrum antibiotics including IV Zosyn. He was being diuresis with IV Lasix 40 mg every 12 hours. He was on a Cardizem drip at 15 mg an hour to control atrial fibrillation. Remains on Decadron 5 mg IV every 6 hours. The chest x-ray as mentioned shows interval development of bilateral perihilar pulmonary infiltrates which are currently diffuse. The patient demonstrated gradual improvement in the white cell count from a baseline of 0.7 up to 20 and the platelet count is up to 79 with a hemoglobin of 8.0. The patient did not receive any packed RBC transfusions. The differential count shows 46% blasts. Renal function is impaired in the creatinine is 1.47 as the patient is being diuresed. Uric acid level is up to 8.9 with a calcium level of 8.3 and phosphorus level of 5.8 and LDH level was as high as 5244 indicating the possibility of a tumor lysis syndrome. Based on that, the patient was given a dose of respirator he carries yesterday and urine acid level is improved considerably. The echo from last month showed a preserved LV function with an ejection fraction of 6065%. The patient has mild MR, RV is mildly enlarged. Note that the patient over progressively more short of breath and hypoxic. At point, the patient was intubated and placed on a mechanical ventilator. I saw this patient this morning. The patient was already intubated on a mechanical ventilator on assist control mode with a rate of 24 with a tidal volume of 450 and FiO2 of 50% with a PEEP of 10. The blood gas showed a pH of 7.42 with a pC O2 of 40 and pO2 of 104. This was on FiO2 of 60%. The patient was sedated with propofol running at 75 mg per KG per minute. The patient is also on insulin at 5 units an hour for blood sugar control. The patient is on norepinephrine infusion at 0.06 units per KG per minute. Cardizem drip is running at 50 mg an hour in regards to her atrial fibrillation. The heart rate is in the order of 110-120. He is afebrile. Chest x-rays showing bilateral pulmonary infiltrates, stable compared to yesterday. immediately a bronchoscopy was done and the bronchioloalveolar lavage of the right middle lobe was collected as there was a concern of an underlying infection. The patient is currently on IV Zosyn. Lasix was discontinued. On 09/01/2020, the patient is being seen in follow-up in the intensive care unit. The patient remains intubated on a mechanical ventilator. This morning the patient is sedated with propofol at the rate of 45 g per KG per minute. The patient remains on mechanical ventilator on assist control mode at the rate of 24 with a tidal volume of 450 and FiO2 of 40% with a PEEP of 10. Blood gases from today showed a pH of 7.44 with a pCO2 of 38 and pO2 of 152. Chest x-ray still showing diffuse bilateral pulmonary infiltrates slightly improved compared to yesterday. Oxidation is also improved. Based on that, I made recommendations to gradually wean off the PEEP down to 5 cm of water. The patient unfortunately continues to be in atrial fibrillation. The patient is not adequately controlled. The patient is on a Cardizem drip at 15 mg an hour. The patient is also on amiodarone 0.5 mg an hour and the patient is also on metoprolol 100 mg by mouth 3 times a day. The patient is being supported with norepinephrine infusion for blood pressure support at the rate of 0.06 mg per KG per minute. The patient is afebrile. The patient is currently on IV Zosyn. The patient's bronchoscopy and the bronchioloalveolar lavage was done yesterday and the patient does not have any possible microbial growth for now. No fever. No chills. He is receiving daily Lasix 40 mg IV push to maintain adequate fluid balance. In terms of hematologic profile, the white cell count is up to 28 and the patient has 12% blast cells. The platelet count is at 96 with a hemoglobin of 7.3. The patient is currently on Hydrea the patient is also on Decadron. Discussed the case with oncology. We will hold off the ATRA treatment as the patient has gone into differentiation syndrome. On 09/02/2020, I'm seeing the patient for a follow-up in the intensive care unit. The patient remains intubated on a mechanical ventilator. This morning the patient remains on propofol at 50 g per KG per minute. The patient is also on a mechanical ventilator at the rate of 24 with a tidal volume of 450 and FiO2 of 40% with a PEEP of 5. Chest x-ray is showing stable bilateral pulmonary infiltrates without any major change compared to yesterday. Meanwhile the blood gases from today showed a pH of 7.47 with a pCO2 of 34 and pO2 of 110. The patient remains in atrial fibrillation on obviously it has been very difficult to control the rate. He is not a candidate for cardioversion and the patient cannot take any anticoagulants. 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 In terms of his A. 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 Digoxin was also added by cardiology. Heart rate is ranging between 110 and 130, irregular. He is afebrile. He is covered with Zosyn. The bronchoscopy and bronchial alveolar lavage done earlier yielded no microbial growth. The patient remains on Decadron. The patient remains on Hydrea. LDH is on the rise. White cell count today is at 26.4. Platelet count is at 91. The patient is 54% blasts and off and sleepy is a sign of progression of his underlying AML. The BUN is at 53 with a creatinine of 1.05. The patient was given daily Lasix and the patient's fluid balance has been +7 40 mL over the past 24 hours. The patient is on enteral feeding for nutritional support. The patient is well sedated. A sedation holiday was given today. He was taken off the propofol and subsequently became more tachycardic and restless and asynchronous with a mechanical ventilator and the procedure had to be aborted and the patient was placed back on sedation. On 09/03/2020, seeing this patient for a follow-up in the intensive care unit and the patient is doing poorly. The patient remains sedated on a mechanical ventilator. The patient is on propofol infusion running at 60 g per KG per minute. The patient is on a mechanical ventilator session the same vent setting is yesterday with a rate of 24 with a tidal volume of 450 and FiO2 of 40% with a PEEP of 5. The blood gases showed a pH of 7.49 with a pCO2 of 33 and pO2 of 94. Chest x-ray findings are essentially stable. Nevertheless, the patient continues to be in atrial fibrillation with a rapid ventricular response and has been very difficult to control his heart rate. He is currently on a combination of Cardizem drip at 15 mg an hour and addition to amiodarone drip at 0.5 mg per minute and metoprolol at a dose of 100 mg by mouth 3 times a day. He is also on digoxin 0.25 mg on a daily basis. The patient is still having A. fib RVR despite this ongoing treatment for rate control. His heart rate is ranging between 120 and 160, irregular and the patient is also requiring norepinephrine infusion for blood pressure control and the patient is currently on levo fed running at 7 g per minute. Cardiology is on the case and the patient will not be cardioverted based on our ability to provide him any anticoagulants at the time of cardioversion. Hematologically, he is still in acute leukemic crisis. The patient platelet count is at 106. The patient has a 57% blasts. LDH pulses on the rise the patient has a BUN of 50 with a creatinine of 1.0. Uric acid is up to 2.4. Bilirubin is at 0.9, AST slightly elevated at 104. The patient was given Hydrea by hematology oncology at were unable to give him because of our inability to crushed medication. He is on Decadron 5 mg every 6 hours. The patient is afebrile. The patient on IV Zosyn. The bronchioloalveolar lavage was negative. Chest x-ray findings are stable. The neck fluid balance is in order of 34 1 mL positive and the patient is receiving daily Lasix dose of 40 mg IV push. On 09/04/2020, the patient remains intubated on a mechanical ventilator. As stated earlier, the patient was started on systemic therapy with cytarabine and this was started last night. This morning, the patient assist-control mode of ventilation at the rate of 24 with a tidal volume of 500 and FiO2 of 50% and a PEEP of 5. The patient's is sedated with propofol. The patient was having bouts of fever overnight and the patient's had a T-max of 102.2. The patient was given Tylenol. Cultures were sent. Noted the bronchoscopy and the bron chioloalveolar lavage done earlier showed no evidence of any microbial growth. 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 The chest x-ray still showing some pains right infrahilar and more prominent left basilar infiltrate/atelectasis. No new infiltration seen.. The patient remains in atrial fibrillation. Heart rate is still quite tachycardic and the patient continues to be on Cardizem drip at 15mg an hour in addition to metoprolol 100 mg by mouth 3 times a day, digoxin 250 g daily basis and amiodarone that has been switched to oral at a dose of 5 mg by mouth twice a day. The patient is still requiring low-dose norepinephrine infusion for blood pressure support which is running at 0.02 mg per KG per minute. I started the patient IV fluid and the patient was going on systemic chemotherapy and currently is on normal saline at rate of 70 mL an hour. The patient is taking insulin drip at 14 units an hour. He remains on IV Zosyn. Note that the hematologic profile is still quite abnormal. The white cell count is at 66.9. The patient has 46% blasts in the peripheral smear. Platelet counts at 76. The LDH remains elevated at 10,336. Renal function is stable with a BUN of 47 with a creatinine of 0.9. Uric acid level is at 2.6. Calcium level level is at 7.3. On 09/05/2020, the patient is still doing poorly. The patient is completing systemic chemotherapy regarding the acute AML crisis. Hematologically, the patient continues to have increased level of blasts in his peripheral smear addition to leukocytosis and elevated LDH. The patient is completing a course of cytarabine. Meanwhile, the patient is still sedated on mechanical ventilator. He is on propofol for sedation running at 60 g per KG per minute. I'll be unable to cut down his sedation as the patient becomes severely tachycardic restless and LUAN inhibitor the mechanical ventilator once of sedation. In terms of his cardiac status, heart rate is still tachycardic and in A. fib rhythm. Despite a combination of metoprolol 100 mg 3 times a day, Cardizem 50 mg an hour, amiodarone 400 mg twice a day and digoxin to 50 mg on a daily basis, the patient continues to be quite tachycardic. He is on no anticoagulants for now. He was having episodes of fever and the fever workup included a bronchoscopy and the bronchioloalveolar lavage that showed HSV-1 with some candidal elements. For that reason the patient was given a combination of acyclovir, Aguilar in combination with Zosyn as broad-spectrum antibiotic coverage. The patient is off pressors this morning. He is on a assist-control mode at the rate of 24 with a tidal volume of 500 and FiO2 of 40% with a PEEP of 5. Blood gas show pH of 7.46 with a pCO2 of 30-121 oxygen. The patient's chest x-ray shows increased interstitial infiltrates bilaterally which are somewhat stable compared to yesterday, probably slightly worse on the right. He is receiving daily Lasix doses. The fluid balance has been essentially slightly positive in order of +1 L over the past 24 hours. The patient is on insulin drip at 50 units an hour. He is receiving enteral feeding for nutritional support. No other significant events overnight. On 09/06/2020, the patient is still doing poorly. He is completing the chemotherapy. He remains sedated and unable to come off the sedation as the patient becomes quite breathless agitated tachycardic while off sedation. For that reason the patient is on 60 g of propofol infusion. Breath settings are essentially the same with an assist-control mode at the rate of 24 with a tidal volume of 500 and FiO2 of 40% with a PEEP of 5. PH is 7.43 with a pCO2 of 31 pO2 of 87. He is still having episodic low-grade fever. [place] was cultured from the bronchioloalveolar lavage in addition to HSV and the patient was covered with a combination of Zosyn, acyclovir and Eraxis. Repeat cultures be obtained accordingly. Meanwhile, the patient is currently off pressors. A. fib is still active although less tachycardic to prior evaluation. He remains on a combination of metoprolol, amiodarone, Cardizem drip and digoxin. He is receiving enteral feeding for nutritional support with vital high protein at the rate of 20 mL an hour. As mentioned is completing systemic chemotherapy with cytarabine. The white cell count of 32 with a 11 of 7.4. Platelet count is a 75. The patient continues to 47% blasts in the peripheral smear. Correlation profile is decent. The sodium level is up to 148 with a potassium level of 5.2 and a chloride of 123. The BUN is 41 with a creatinine of 1.06. Objective - Vital Signs Vital signs: Vital Signs Temp 102.2 F H 09/06/20 08:00 Pulse 125 H 09/06/20 11:00 Resp 26 H 09/06/20 11:00 BP 90/67 09/06/20 10:30 Pulse Ox 98 09/06/20 11:00 Intake & Output 09/05/20 09/06/20 09/06/20 18:59 06:59 18:59 Intake Total 2260.633 2298.641 1313.382 Output Total 2160 1355 1990 Balance 100.633 943.641 -676.618 Weight 105.415 kg Intake: IV 892 1247 455 0.9 120 825 75 Acyclovir Sodium 1,000 mg 500 250 250 In Sodium Chloride 0.9% 250 ml @ 270 mls/hr IVPB Q8HR ANA Rx#:[id number] Normal Saline Pressure 72 72 30 Bag Piperacillin-Tazobactam 3 200 100 100 .375 gm In Sodium Chloride 0.9% 100 ml @ 25 mls/hr IVPB Q8HR ANA Rx# :[id number] Intake, IV Titration 1108.633 721.641 618.382 Amount Anidulafungin 100 mg In 250 100 Sodium Chloride 0.9% 100 ml @ 84 mls/hr IVPB DAILY ANA Rx#:[id number] Diltiazem 125 mg In 125 245.75 104.75 Sodium Chloride 0.9% 100 ml @ 15 MG/HR 15 mls/hr IV .Q8H20M [facility]NA Rx#: [id number] Insulin Regular 100 unit 96.169 112.195 39.39 In Sodium Chloride 0.9% 100 ml @ Per Protocol IV .Q0M [facility]NA Rx#:[id number] Norepinephrine 32 mg In 17.128 0 13.787 Sodium Chloride 0.9% 218 ml @ 0.06 MCG/KG/MIN 2. 776 mls/hr IV .Q24H ANA Rx#:[id number] Sodium Chloride 0.45% 1, 225 000 ml @ 75 mls/hr IV . [id number] [facility] Rx#:[id number] Sodium Chloride 0.9% 1, 225 75 000 ml @ 75 mls/hr IV . [id number] [facility] Rx#:[id number] propofoL 1,000 mg In 395.336 363.696 60.455 Empty Bag 1 bag @ Titrate IV .Q0M [facility]NA Rx#: [id number] Tube Feeding 260 240 120 Other 90 120 Output: Urine 2160 1355 1990 Other: Voiding Method Indwelling Catheter Indwelling Catheter Indwelling Catheter # Bowel Movements 1 1 ABP, PAP, CO, CI - Last Documented Arterial Blood Pressure 94/43 - Exam Gen. appearance the patient is currently sedated, comfortable intubated on a mechanical ventilator. The patient is sedated with propofol. Orogastric and or otracheal tube are both in place. Head exam was generally normal. There was no scleral icterus or corneal arcus. Mucous membranes were moist. Neck was supple and without jugular venous distension, thyromegaly, or carotid bruits. Carotids were easily palpable bilaterally. There was no adenopathy.the patient is a left IJ triple-lumen catheter in place. Cardiac exam revealed the PMI to be normally situated and sized. The rhythm was irregular consistent with atrial fibrillation with rapid ventricular response and no extrasystoles were noted during several minutes of auscultation. The first and second heart sounds were normal and physiologic splitting of the second heart sound was noted. There were no murmurs, rubs, clicks, or gallops. Lungs were clear to auscultation and percussion, and with normal diaphragmatic excursion. No wheezes or rales were noted. Abdominal exam revealed normal bowel sounds. The abdomen was soft, non-tender, and without masses, organomegaly, or appreciable enlargement of the abdominal aorta. Examination of the extremities revealed easily palpable radial, femoral and pedal pulses. There was no cyanosis, clubbing or edema. Examination of the skin revealed no evidence of significant rashes, suspicious appearing nevi or other concerning lesions. Neurologically the patient is sedated and the patient is calm and comfortable at this point in time. Was sedated on a mechanical ventilator. A sedation holiday was given to this patient yesterday and failed as the patient became quite agitated and restless. He became also hemodynamically unstable and a significant the mechanical ventilator and the procedure to be aborted. - Labs CBC & Chem 7: 09/06/20 03:35 09/06/20 03:35 Labs: Abnormal Lab Results - Last 24 Hours (Table) 09/05/20 09/05/20 09/05/20 Range/Units 11:41 13:49 14:16 WBC 27.1 H (3.8-10.6) k/uL RBC 1.95 L (4.30-5.90) m/uL Hgb 7.3 L (13.0-17.5) gm/dL Hct 19.6 L* (39.0-53.0) % MCV 100.4 H (80.0-100.0) fL MCH 37.5 H (25.0-35.0) pg MCHC 37.3 H (31.0-37.0) g/dL RDW 18.3 H (11.5-15.5) % Plt Count 84 L (150-450) k/uL Blast Cells % 30 H* % Neutrophils # (Manual) 10.00 H (1.3-7.7) k/uL Lymphocytes # (Manual) 0.81 L (1.0-4.8) k/uL Metamyelocytes # (Man) 2.71 H (0) k/uL Myelocytes # (Manual) 4.34 H (0) k/uL Promyelocytes # (Man) 0.27 H (0) k/uL Blast Cells # (Man) 8.13 H (0) k/uL Nucleated RBCs 4 H (0-0) /100 WBC PT (9.0-12.0) sec INR (<1.2) APTT (22.0-30.0) sec Fibrinogen (200-500) mg/dL D-Dimer (<0.60) mg/L FEU ABG pCO2 (35-45) mmHg Sodium (137-145) mmol/L Potassium (3.5-5.1) mmol/L Chloride (98-107) mmol/L BUN (9-20) mg/dL Glucose (74-99) mg/dL POC Glucose (mg/dL) 170 H 141 H (75-99) mg/dL Uric Acid (3.5-8.5) mg/dL Calcium (8.4-10.2) mg/dL Magnesium (1.6-2.3) mg/dL AST (17-59) U/L Lactate Dehydrogenase (313-618) U/L Total Protein (6.3-8.2) g/dL Albumin (3.5-5.0) g/dL 09/05/20 09/05/20 09/05/20 Range/Units 14:16 16:19 20:09 WBC (3.8-10.6) k/uL RBC (4.30-5.90) m/uL Hgb (13.0-17.5) gm/dL Hct (39.0-53.0) % MCV (80.0-100.0) fL MCH (25.0-35.0) pg MCHC (31.0-37.0) g/dL RDW (11.5-15.5) % Plt Count (150-450) k/uL Blast Cells % % Neutrophils # (Manual) (1.3-7.7) k/uL Lymphocytes # (Manual) (1.0-4.8) k/uL Metamyelocytes # (Man) (0) k/uL Myelocytes # (Manual) (0) k/uL Promyelocytes # (Man) (0) k/uL Blast Cells # (Man) (0) k/uL Nucleated RBCs (0-0) /100 WBC PT (9.0-12.0) sec INR (<1.2) APTT (22.0-30.0) sec Fibrinogen 140 L (200-500) mg/dL D-Dimer 22.89 H (<0.60) mg/L FEU ABG pCO2 (35-45) mmHg Sodium (137-145) mmol/L Potassium (3.5-5.1) mmol/L Chloride (98-107) mmol/L BUN (9-20) mg/dL Glucose (74-99) mg/dL POC Glucose (mg/dL) 109 H 196 H (75-99) mg/dL Uric Acid (3.5-8.5) mg/dL Calcium (8.4-10.2) mg/dL Magnesium (1.6-2.3) mg/dL AST (17-59) U/L Lactate Dehydrogenase (313-618) U/L Total Protein (6.3-8.2) g/dL Albumin (3.5-5.0) g/dL 09/05/20 09/05/20 09/05/20 Range/Units 21:14 22:03 23:02 WBC (3.8-10.6) k/uL RBC (4.30-5.90) m/uL Hgb (13.0-17.5) gm/dL Hct (39.0-53.0) % MCV (80.0-100.0) fL MCH (25.0-35.0) pg MCHC (31.0-37.0) g/dL RDW (11.5-15.5) % Plt Count (150-450) k/uL Blast Cells % % Neutrophils # (Manual) (1.3-7.7) k/uL Lymphocytes # (Manual) (1.0-4.8) k/uL Metamyelocytes # (Man) (0) k/uL Myelocytes # (Manual) (0) k/uL Promyelocytes # (Man) (0) k/uL Blast Cells # (Man) (0) k/uL Nucleated RBCs (0-0) /100 WBC PT (9.0-12.0) sec INR (<1.2) APTT (22.0-30.0) sec Fibrinogen (200-500) mg/dL D-Dimer (<0.60) mg/L FEU ABG pCO2 (35-45) mmHg Sodium (137-145) mmol/L Potassium (3.5-5.1) mmol/L Chloride (98-107) mmol/L BUN (9-20) mg/dL Glucose (74-99) mg/dL POC Glucose (mg/dL) 182 H 154 H 144 H (75-99) mg/dL Uric Acid (3.5-8.5) mg/dL Calcium (8.4-10.2) mg/dL Magnesium (1.6-2.3) mg/dL AST (17-59) U/L Lactate Dehydrogenase (313-618) U/L Total Protein (6.3-8.2) g/dL Albumin (3.5-5.0) g/dL 09/06/20 09/06/20 09/06/20 Range/Units 00:03 01:01 02:00 WBC (3.8-10.6) k/uL RBC (4.30-5.90) m/uL Hgb (13.0-17.5) gm/dL Hct (39.0-53.0) % MCV (80.0-100.0) fL MCH (25.0-35.0) pg MCHC (31.0-37.0) g/dL RDW (11.5-15.5) % Plt Count (150-450) k/uL Blast Cells % % Neutrophils # (Manual) (1.3-7.7) k/uL Lymphocytes # (Manual) (1.0-4.8) k/uL Metamyelocytes # (Man) (0) k/uL Myelocytes # (Manual) (0) k/uL Promyelocytes # (Man) (0) k/uL Blast Cells # (Man) (0) k/uL Nucleated RBCs (0-0) /100 WBC PT (9.0-12.0) sec INR (<1.2) APTT (22.0-30.0) sec Fibrinogen (200-500) mg/dL D-Dimer (<0.60) mg/L FEU ABG pCO2 (35-45) mmHg Sodium (137-145) mmol/L Potassium (3.5-5.1) mmol/L Chloride (98-107) mmol/L BUN (9-20) mg/dL Glucose (74-99) mg/dL POC Glucose (mg/dL) 128 H 145 H 149 H (75-99) mg/dL Uric Acid (3.5-8.5) mg/dL Calcium (8.4-10.2) mg/dL Magnesium (1.6-2.3) mg/dL AST (17-59) U/L Lactate Dehydrogenase (313-618) U/L Total Protein (6.3-8.2) g/dL Albumin (3.5-5.0) g/dL 09/06/20 09/06/20 09/06/20 Range/Units 03:07 03:35 03:35 WBC 32.2 H (3.8-10.6) k/uL RBC 1.87 L (4.30-5.90) m/uL Hgb 7.4 L (13.0-17.5) gm/dL Hct 18.8 L* (39.0-53.0) % MCV 100.6 H (80.0-100.0) fL MCH 39.6 H (25.0-35.0) pg MCHC 39.3 H (31.0-37.0) g/dL RDW 18.5 H (11.5-15.5) % Plt Count 75 L (150-450) k/uL Blast Cells % 47 H* % Neutrophils # (Manual) 11.50 H (1.3-7.7) k/uL Lymphocytes # (Manual) 5.15 H (1.0-4.8) k/uL Metamyelocytes # (Man) (0) k/uL Myelocytes # (Manual) (0) k/uL Promyelocytes # (Man) (0) k/uL Blast Cells # (Man) 15.13 H (0) k/uL Nucleated RBCs (0-0) /100 WBC PT 13.0 H (9.0-12.0) sec INR 1.3 H (<1.2) APTT 21.8 L (22.0-30.0) sec Fibrinogen 95 L (200-500) mg/dL D-Dimer (<0.60) mg/L FEU ABG pCO2 (35-45) mmHg Sodium (137-145) mmol/L Potassium (3.5-5.1) mmol/L Chloride (98-107) mmol/L BUN (9-20) mg/dL Glucose (74-99) mg/dL POC Glucose (mg/dL) 131 H (75-99) mg/dL Uric Acid (3.5-8.5) mg/dL Calcium (8.4-10.2) mg/dL Magnesium (1.6-2.3) mg/dL AST (17-59) U/L Lactate Dehydrogenase (313-618) U/L Total Protein (6.3-8.2) g/dL Albumin (3.5-5.0) g/dL 09/06/20 09/06/20 09/06/20 Range/Units 03:35 04:13 04:38 WBC (3.8-10.6) k/uL RBC (4.30-5.90) m/uL Hgb (13.0-17.5) gm/dL Hct (39.0-53.0) % MCV (80.0-100.0) fL MCH (25.0-35.0) pg MCHC (31.0-37.0) g/dL RDW (11.5-15.5) % Plt Count (150-450) k/uL Blast Cells % % Neutrophils # (Manual) (1.3-7.7) k/uL Lymphocytes # (Manual) (1.0-4.8) k/uL Metamyelocytes # (Man) (0) k/uL Myelocytes # (Manual) (0) k/uL Promyelocytes # (Man) (0) k/uL Blast Cells # (Man) (0) k/uL Nucleated RBCs (0-0) /100 WBC PT (9.0-12.0) sec INR (<1.2) APTT (22.0-30.0) sec Fibrinogen (200-500) mg/dL D-Dimer (<0.60) mg/L FEU ABG pCO2 31 L (35-45) mmHg Sodium 148 H (137-145) mmol/L Potassium 5.2 H (3.5-5.1) mmol/L Chloride 123 H (98-107) mmol/L BUN 41 H (9-20) mg/dL Glucose 143 H (74-99) mg/dL POC Glucose (mg/dL) 164 H (75-99) mg/dL Uric Acid 3.3 L (3.5-8.5) mg/dL Calcium 7.3 L (8.4-10.2) mg/dL Magnesium 2.8 H (1.6-2.3) mg/dL AST 92 H (17-59) U/L Lactate Dehydrogenase 24381 H (313-618) U/L Total Protein 5.1 L (6.3-8.2) g/dL Albumin 2.6 L (3.5-5.0) g/dL 09/06/20 09/06/20 09/06/20 Range/Units 05:01 06:06 06:58 WBC (3.8-10.6) k/uL RBC (4.30-5.90) m/uL Hgb (13.0-17.5) gm/dL Hct (39.0-53.0) % MCV (80.0-100.0) fL MCH (25.0-35.0) pg MCHC (31.0-37.0) g/dL RDW (11.5-15.5) % Plt Count (150-450) k/uL Blast Cells % % Neutrophils # (Manual) (1.3-7.7) k/uL Lymphocytes # (Manual) (1.0-4.8) k/uL Metamyelocytes # (Man) (0) k/uL Myelocytes # (Manual) (0) k/uL Promyelocytes # (Man) (0) k/uL Blast Cells # (Man) (0) k/uL Nucleated RBCs (0-0) /100 WBC PT (9.0-12.0) sec INR (<1.2) APTT (22.0-30.0) sec Fibrinogen (200-500) mg/dL D-Dimer (<0.60) mg/L FEU ABG pCO2 (35-45) mmHg Sodium (137-145) mmol/L Potassium (3.5-5.1) mmol/L Chloride (98-107) mmol/L BUN (9-20) mg/dL Glucose (74-99) mg/dL POC Glucose (mg/dL) 157 H 163 H 149 H (75-99) mg/dL Uric Acid (3.5-8.5) mg/dL Calcium (8.4-10.2) mg/dL Magnesium (1.6-2.3) mg/dL AST (17-59) U/L Lactate Dehydrogenase (313-618) U/L Total Protein (6.3-8.2) g/dL Albumin (3.5-5.0) g/dL 09/06/20 09/06/20 Range/Units 08:12 10:12 WBC (3.8-10.6) k/uL RBC (4.30-5.90) m/uL Hgb (13.0-17.5) gm/dL Hct (39.0-53.0) % MCV (80.0-100.0) fL MCH (25.0-35.0) pg MCHC (31.0-37.0) g/dL RDW (11.5-15.5) % Plt Count (150-450) k/uL Blast Cells % % Neutrophils # (Manual) (1.3-7.7) k/uL Lymphocytes # (Manual) (1.0-4.8) k/uL Metamyelocytes # (Man) (0) k/uL Myelocytes # (Manual) (0) k/uL Promyelocytes # (Man) (0) k/uL Blast Cells # (Man) (0) k/uL Nucleated RBCs (0-0) /100 WBC PT (9.0-12.0) sec INR (<1.2) APTT (22.0-30.0) sec Fibrinogen (200-500) mg/dL D-Dimer (<0.60) mg/L FEU ABG pCO2 (35-45) mmHg Sodium (137-145) mmol/L Potassium (3.5-5.1) mmol/L Chloride (98-107) mmol/L BUN (9-20) mg/dL Glucose (74-99) mg/dL POC Glucose (mg/dL) 141 H 128 H (75-99) mg/dL Uric Acid (3.5-8.5) mg/dL Calcium (8.4-10.2) mg/dL Magnesium (1.6-2.3) mg/dL AST (17-59) U/L Lactate Dehydrogenase (313-618) U/L Total Protein (6.3-8.2) g/dL Albumin (3.5-5.0) g/dL Microbiology - Last 24 Hours (Table) 09/04/20 11:11 Urine Culture - Final Urine,Catheterized 09/04/20 11:11 Blood Culture - Preliminary Blood No Growth after 24 hours Assessment and Plan Plan: 1 acute hypoxic respiratory failure, with development of diffuse bilateral pulmonary infiltrates, possibly related to acute lung injury from various insult related to acute promyelocytic leukemia treatment. The patient got intubated on 08/30/2020 and the patient is currently on a mechanical ventilator. Chest x-ray still showing diffuse but the pulmonary infiltrates. 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 The patient is having low-grade fever. No bacterial growth. The patient is on Zosyn. Added acyclovir and and Eraxis and accommodation. With Zosyn for broad-spectrum antibiotic coverage. The patient is currently on systemic chemotherapy. Chest x-ray findings are stable. Oxygenation remains stable. No need for any ventilator changes today. 2 fever, improving and the patient continues to spike low-grade fever. Repeat cultures will be obtained. The patient meanwhile is A Combination of Zosyn, Acyclovir and Eraxis. 3 acute leukocytosis with a White cell count is up to 32, with essentially 47% blasts, high level of blasts, in addition to anemia and thrombocytopenia. This is related to acute leukemic crisis, and the patient is currently receiving cytarabine and he will be completing the systemic chemotherapy today. 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 13 obstructive sleep apnea, history of 14 hypertension Plan Continue ventilator support Continue Zosyn, acyclovir and Eraxis Repeat blood cultures based on the fact that the patient is still having episodes of fever. This could be potentially a tumor induced fever. Continue the pressors for hemodynamic support Continue same cardiac medication for rate control in regards to atrial fibrillation. Not a candidate for anticoagulation. The patient is currently receiving systemic chemotherapy with cytarabine. Continue the systemic chemotherapy with a monitor the hematologic profile Continue enteral feeding for nutritional support Insulin drip for blood sugar control, currently at 13 units an hour Monitor labs for any possibility of a tumor lysis syndrome Prognosis extremely poor baseline above-mentioned comorbidities No major changes condition compared to yesterday. We'll wait for the patient completed the systemic chemotherapy. His chest x-ray findings are stable. Oxygenation is stable. Hemodynamically stable. Not ready for further weaning. We will try to give a sedation holiday after the patient completes the systemic chemotherapy. This will be done in a.m. Monitor electrolytes critical condition will continue to follow make further recommendations based on the progress. This evaluation was done and morning 30 minutes. Time with Patient: Greater than 30
[2020-09-06 12:03] LABS: Glucose,Whole Blood 141 mg/dL (75-99)
--- NOTE | 2020-09-06 13:24 | P.PN ---
Subjective Progress Note Date: 09/06/20 Principal diagnosis: APL - Acute Hypoxic respiratory failure Blasts have increased again 47%, which correlates with increased temp 101.1 (last) and 24 hour T max 102. Fibrinogen - 95, increase in D dimer as well. No obvious signs of bleeding, although with in this situation Cryoprecipitate is appropriate to give, therefore ordered. Objective - Vital Signs Vital signs: Vital Signs Temp 101.1 F H 09/06/20 12:00 Pulse 130 H 09/06/20 12:00 Resp 11 L 09/06/20 12:00 BP 90/67 09/06/20 10:30 Pulse Ox 99 09/06/20 12:00 Intake & Output 09/05/20 09/06/20 09/06/20 18:59 06:59 18:59 Intake Total 2260.633 2298.641 1434.382 Output Total 2160 1355 2150 Balance 100.633 943.641 -715.618 Weight 105.415 kg Intake: IV 892 1247 461 0.9 120 825 75 Acyclovir Sodium 1,000 mg 500 250 250 In Sodium Chloride 0.9% 250 ml @ 270 mls/hr IVPB Q8HR ANA Rx#:[id number] Normal Saline Pressure 72 72 36 Bag Piperacillin-Tazobactam 3 200 100 100 .375 gm In Sodium Chloride 0.9% 100 ml @ 25 mls/hr IVPB Q8HR ANA Rx# :[id number] Intake, IV Titration 1108.633 721.641 693.382 Amount Anidulafungin 100 mg In 250 100 Sodium Chloride 0.9% 100 ml @ 84 mls/hr IVPB DAILY ANA Rx#:[id number] Diltiazem 125 mg In 125 245.75 104.75 Sodium Chloride 0.9% 100 ml @ 15 MG/HR 15 mls/hr IV .Q8H20M ANA Rx#: [id number] Insulin Regular 100 unit 96.169 112.195 39.39 In Sodium Chloride 0.9% 100 ml @ Per Protocol IV .Q0M ANA Rx#:[id number] Norepinephrine 32 mg In 17.128 0 13.787 Sodium Chloride 0.9% 218 ml @ 0.06 MCG/KG/MIN 2. 776 mls/hr IV .Q24H ANA Rx#:[id number] Sodium Chloride 0.45% 1, 300 000 ml @ 75 mls/hr IV . [id number] ANA Rx#:[id number] Sodium Chloride 0.9% 1, 225 75 000 ml @ 75 mls/hr IV . [id number] ANA Rx#:[id number] propofoL 1,000 mg In 395.336 363.696 60.455 Empty Bag 1 bag @ Titrate IV .Q0M ANA Rx#: [id number] Tube Feeding 260 240 160 Other 90 120 Output: Urine 2160 1355 2150 Other: Voiding Method Indwelling Catheter Indwelling Catheter Indwelling Catheter # Bowel Movements 1 1 ABP, PAP, CO, CI - Last Documented Arterial Blood Pressure 115/48 - Exam - Constitutional Constitutional Comment(s): Ventilator ENT:ET tube - Respiratory - Vent, tachypneic Respiratory: bilateral: rales, rhonchi - Cardiovascular Rhythm: irregularly irregular - Gastrointestinal General gastrointestinal: Present: distended, normal bowel sounds, soft - Integumentary Integumentary: Present: normal - Neurologic Neurologic:KARSTEN - Musculoskeletal Musculoskeletal:Atrophy noted to muscles, KARSTEN strength BLE and BUE edema - Psychiatric Psychiatric: KARSTEN - Labs CBC & Chem 7: 09/06/20 03:35 09/06/20 03:35 Labs: Abnormal Lab Results - Last 24 Hours (Table) 09/05/20 09/05/20 09/05/20 Range/Units 13:49 14:16 14:16 WBC 27.1 H (3.8-10.6) k/uL RBC 1.95 L (4.30-5.90) m/uL Hgb 7.3 L (13.0-17.5) gm/dL Hct 19.6 L* (39.0-53.0) % MCV 100.4 H (80.0-100.0) fL MCH 37.5 H (25.0-35.0) pg MCHC 37.3 H (31.0-37.0) g/dL RDW 18.3 H (11.5-15.5) % Plt Count 84 L (150-450) k/uL Blast Cells % 30 H* % Neutrophils # (Manual) 10.00 H (1.3-7.7) k/uL Lymphocytes # (Manual) 0.81 L (1.0-4.8) k/uL Metamyelocytes # (Man) 2.71 H (0) k/uL Myelocytes # (Manual) 4.34 H (0) k/uL Promyelocytes # (Man) 0.27 H (0) k/uL Blast Cells # (Man) 8.13 H (0) k/uL Nucleated RBCs 4 H (0-0) /100 WBC PT (9.0-12.0) sec INR (<1.2) APTT (22.0-30.0) sec Fibrinogen 140 L (200-500) mg/dL D-Dimer 22.89 H (<0.60) mg/L FEU ABG pCO2 (35-45) mmHg Sodium (137-145) mmol/L Potassium (3.5-5.1) mmol/L Chloride (98-107) mmol/L BUN (9-20) mg/dL Glucose (74-99) mg/dL POC Glucose (mg/dL) 141 H (75-99) mg/dL Uric Acid (3.5-8.5) mg/dL Calcium (8.4-10.2) mg/dL Magnesium (1.6-2.3) mg/dL AST (17-59) U/L Lactate Dehydrogenase (313-618) U/L Total Protein (6.3-8.2) g/dL Albumin (3.5-5.0) g/dL 09/05/20 09/05/20 09/05/20 Range/Units 16:19 20:09 21:14 WBC (3.8-10.6) k/uL RBC (4.30-5.90) m/uL Hgb (13.0-17.5) gm/dL Hct (39.0-53.0) % MCV (80.0-100.0) fL MCH (25.0-35.0) pg MCHC (31.0-37.0) g/dL RDW (11.5-15.5) % Plt Count (150-450) k/uL Blast Cells % % Neutrophils # (Manual) (1.3-7.7) k/uL Lymphocytes # (Manual) (1.0-4.8) k/uL Metamyelocytes # (Man) (0) k/uL Myelocytes # (Manual) (0) k/uL Promyelocytes # (Man) (0) k/uL Blast Cells # (Man) (0) k/uL Nucleated RBCs (0-0) /100 WBC PT (9.0-12.0) sec INR (<1.2) APTT (22.0-30.0) sec Fibrinogen (200-500) mg/dL D-Dimer (<0.60) mg/L FEU ABG pCO2 (35-45) mmHg Sodium (137-145) mmol/L Potassium (3.5-5.1) mmol/L Chloride (98-107) mmol/L BUN (9-20) mg/dL Glucose (74-99) mg/dL POC Glucose (mg/dL) 109 H 196 H 182 H (75-99) mg/dL Uric Acid (3.5-8.5) mg/dL Calcium (8.4-10.2) mg/dL Magnesium (1.6-2.3) mg/dL AST (17-59) U/L Lactate Dehydrogenase (313-618) U/L Total Protein (6.3-8.2) g/dL Albumin (3.5-5.0) g/dL 09/05/20 09/05/20 09/06/20 Range/Units 22:03 23:02 00:03 WBC (3.8-10.6) k/uL RBC (4.30-5.90) m/uL Hgb (13.0-17.5) gm/dL Hct (39.0-53.0) % MCV (80.0-100.0) fL MCH (25.0-35.0) pg MCHC (31.0-37.0) g/dL RDW (11.5-15.5) % Plt Count (150-450) k/uL Blast Cells % % Neutrophils # (Manual) (1.3-7.7) k/uL Lymphocytes # (Manual) (1.0-4.8) k/uL Metamyelocytes # (Man) (0) k/uL Myelocytes # (Manual) (0) k/uL Promyelocytes # (Man) (0) k/uL Blast Cells # (Man) (0) k/uL Nucleated RBCs (0-0) /100 WBC PT (9.0-12.0) sec INR (<1.2) APTT (22.0-30.0) sec Fibrinogen (200-500) mg/dL D-Dimer (<0.60) mg/L FEU ABG pCO2 (35-45) mmHg Sodium (137-145) mmol/L Potassium (3.5-5.1) mmol/L Chloride (98-107) mmol/L BUN (9-20) mg/dL Glucose (74-99) mg/dL POC Glucose (mg/dL) 154 H 144 H 128 H (75-99) mg/dL Uric Acid (3.5-8.5) mg/dL Calcium (8.4-10.2) mg/dL Magnesium (1.6-2.3) mg/dL AST (17-59) U/L Lactate Dehydrogenase (313-618) U/L Total Protein (6.3-8.2) g/dL Albumin (3.5-5.0) g/dL 09/06/20 09/06/20 09/06/20 Range/Units 01:01 02:00 03:07 WBC (3.8-10.6) k/uL RBC (4.30-5.90) m/uL Hgb (13.0-17.5) gm/dL Hct (39.0-53.0) % MCV (80.0-100.0) fL MCH (25.0-35.0) pg MCHC (31.0-37.0) g/dL RDW (11.5-15.5) % Plt Count (150-450) k/uL Blast Cells % % Neutrophils # (Manual) (1.3-7.7) k/uL Lymphocytes # (Manual) (1.0-4.8) k/uL Metamyelocytes # (Man) (0) k/uL Myelocytes # (Manual) (0) k/uL Promyelocytes # (Man) (0) k/uL Blast Cells # (Man) (0) k/uL Nucleated RBCs (0-0) /100 WBC PT (9.0-12.0) sec INR (<1.2) APTT (22.0-30.0) sec Fibrinogen (200-500) mg/dL D-Dimer (<0.60) mg/L FEU ABG pCO2 (35-45) mmHg Sodium (137-145) mmol/L Potassium (3.5-5.1) mmol/L Chloride (98-107) mmol/L BUN (9-20) mg/dL Glucose (74-99) mg/dL POC Glucose (mg/dL) 145 H 149 H 131 H (75-99) mg/dL Uric Acid (3.5-8.5) mg/dL Calcium (8.4-10.2) mg/dL Magnesium (1.6-2.3) mg/dL AST (17-59) U/L Lactate Dehydrogenase (313-618) U/L Total Protein (6.3-8.2) g/dL Albumin (3.5-5.0) g/dL 09/06/20 09/06/20 09/06/20 Range/Units 03:35 03:35 03:35 WBC 32.2 H (3.8-10.6) k/uL RBC 1.87 L (4.30-5.90) m/uL Hgb 7.4 L (13.0-17.5) gm/dL Hct 18.8 L* (39.0-53.0) % MCV 100.6 H (80.0-100.0) fL MCH 39.6 H (25.0-35.0) pg MCHC 39.3 H (31.0-37.0) g/dL RDW 18.5 H (11.5-15.5) % Plt Count 75 L (150-450) k/uL Blast Cells % 47 H* % Neutrophils # (Manual) 11.50 H (1.3-7.7) k/uL Lymphocytes # (Manual) 5.15 H (1.0-4.8) k/uL Metamyelocytes # (Man) (0) k/uL Myelocytes # (Manual) (0) k/uL Promyelocytes # (Man) (0) k/uL Blast Cells # (Man) 15.13 H (0) k/uL Nucleated RBCs (0-0) /100 WBC PT 13.0 H (9.0-12.0) sec INR 1.3 H (<1.2) APTT 21.8 L (22.0-30.0) sec Fibrinogen 95 L (200-500) mg/dL D-Dimer (<0.60) mg/L FEU ABG pCO2 (35-45) mmHg Sodium 148 H (137-145) mmol/L Potassium 5.2 H (3.5-5.1) mmol/L Chloride 123 H (98-107) mmol/L BUN 41 H (9-20) mg/dL Glucose 143 H (74-99) mg/dL POC Glucose (mg/dL) (75-99) mg/dL Uric Acid 3.3 L (3.5-8.5) mg/dL Calcium 7.3 L (8.4-10.2) mg/dL Magnesium 2.8 H (1.6-2.3) mg/dL AST 92 H (17-59) U/L Lactate Dehydrogenase 27045 H (313-618) U/L Total Protein 5.1 L (6.3-8.2) g/dL Albumin 2.6 L (3.5-5.0) g/dL 09/06/20 09/06/20 09/06/20 Range/Units 04:13 04:38 05:01 WBC (3.8-10.6) k/uL RBC (4.30-5.90) m/uL Hgb (13.0-17.5) gm/dL Hct (39.0-53.0) % MCV (80.0-100.0) fL MCH (25.0-35.0) pg MCHC (31.0-37.0) g/dL RDW (11.5-15.5) % Plt Count (150-450) k/uL Blast Cells % % Neutrophils # (Manual) (1.3-7.7) k/uL Lymphocytes # (Manual) (1.0-4.8) k/uL Metamyelocytes # (Man) (0) k/uL Myelocytes # (Manual) (0) k/uL Promyelocytes # (Man) (0) k/uL Blast Cells # (Man) (0) k/uL Nucleated RBCs (0-0) /100 WBC PT (9.0-12.0) sec INR (<1.2) APTT (22.0-30.0) sec Fibrinogen (200-500) mg/dL D-Dimer (<0.60) mg/L FEU ABG pCO2 31 L (35-45) mmHg Sodium (137-145) mmol/L Potassium (3.5-5.1) mmol/L Chloride (98-107) mmol/L BUN (9-20) mg/dL Glucose (74-99) mg/dL POC Glucose (mg/dL) 164 H 157 H (75-99) mg/dL Uric Acid (3.5-8.5) mg/dL Calcium (8.4-10.2) mg/dL Magnesium (1.6-2.3) mg/dL AST (17-59) U/L Lactate Dehydrogenase (313-618) U/L Total Protein (6.3-8.2) g/dL Albumin (3.5-5.0) g/dL 09/06/20 09/06/20 09/06/20 Range/Units 06:06 06:58 08:12 WBC (3.8-10.6) k/uL RBC (4.30-5.90) m/uL Hgb (13.0-17.5) gm/dL Hct (39.0-53.0) % MCV (80.0-100.0) fL MCH (25.0-35.0) pg MCHC (31.0-37.0) g/dL RDW (11.5-15.5) % Plt Count (150-450) k/uL Blast Cells % % Neutrophils # (Manual) (1.3-7.7) k/uL Lymphocytes # (Manual) (1.0-4.8) k/uL Metamyelocytes # (Man) (0) k/uL Myelocytes # (Manual) (0) k/uL Promyelocytes # (Man) (0) k/uL Blast Cells # (Man) (0) k/uL Nucleated RBCs (0-0) /100 WBC PT (9.0-12.0) sec INR (<1.2) APTT (22.0-30.0) sec Fibrinogen (200-500) mg/dL D-Dimer (<0.60) mg/L FEU ABG pCO2 (35-45) mmHg Sodium (137-145) mmol/L Potassium (3.5-5.1) mmol/L Chloride (98-107) mmol/L BUN (9-20) mg/dL Glucose (74-99) mg/dL POC Glucose (mg/dL) 163 H 149 H 141 H (75-99) mg/dL Uric Acid (3.5-8.5) mg/dL Calcium (8.4-10.2) mg/dL Magnesium (1.6-2.3) mg/dL AST (17-59) U/L Lactate Dehydrogenase (313-618) U/L Total Protein (6.3-8.2) g/dL Albumin (3.5-5.0) g/dL 09/06/20 09/06/20 Range/Units 10:12 12:02 WBC (3.8-10.6) k/uL RBC (4.30-5.90) m/uL Hgb (13.0-17.5) gm/dL Hct (39.0-53.0) % MCV (80.0-100.0) fL MCH (25.0-35.0) pg MCHC (31.0-37.0) g/dL RDW (11.5-15.5) % Plt Count (150-450) k/uL Blast Cells % % Neutrophils # (Manual) (1.3-7.7) k/uL Lymphocytes # (Manual) (1.0-4.8) k/uL Metamyelocytes # (Man) (0) k/uL Myelocytes # (Manual) (0) k/uL Promyelocytes # (Man) (0) k/uL Blast Cells # (Man) (0) k/uL Nucleated RBCs (0-0) /100 WBC PT (9.0-12.0) sec INR (<1.2) APTT (22.0-30.0) sec Fibrinogen (200-500) mg/dL D-Dimer (<0.60) mg/L FEU ABG pCO2 (35-45) mmHg Sodium (137-145) mmol/L Potassium (3.5-5.1) mmol/L Chloride (98-107) mmol/L BUN (9-20) mg/dL Glucose (74-99) mg/dL POC Glucose (mg/dL) 128 H 141 H (75-99) mg/dL Uric Acid (3.5-8.5) mg/dL Calcium (8.4-10.2) mg/dL Magnesium (1.6-2.3) mg/dL AST (17-59) U/L Lactate Dehydrogenase (313-618) U/L Total Protein (6.3-8.2) g/dL Albumin (3.5-5.0) g/dL Microbiology - Last 24 Hours (Table) 09/04/20 11:11 Urine Culture - Final Urine,Catheterized 09/04/20 11:11 Blood Culture - Preliminary Blood No Growth after 24 hours Assessment and Plan Plan: Assessment and Recommendations: 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 Unfort worsened to 56% on 09/02/20 and today 59% on 09/03/20. Unable to administer hydrea dosage through feeding tube while on ventilator therefore will order Cyatarbine 100mg/m2 iv x3 days as cytoreduction treatment. 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 - Status post second treatment with rasburicase on 08/30 - Uric Acid improved today - Monitor daily Tumor Lysis Labs (CMP, LDH, Uric acid, Mag, and Phos) - Monitor Daily CBC with differential and Coags (PT, PTT, INR) Low Grade DIC - - Transfuse unit of Cryoprecipitate if Fibrinogen less than 100 - MOnitor for any s/s bleeding especially oozing from lines or Bowels or Bladder - Transfuse platelets if less than 50K and bleeding or if coagulopathy Transfuse FFP in picture of bleeding or oozing Cytokine Storm/Differentiation Syndrome Febrile - Coverage with abx, anti-fungal, anti-viral - ID is following - Cultures negative to date Acute Hypoxic Respiratory Failure: Secondary to differentiation syndrome plus or minus sepsis - Remains ICU on Mechanical Ventilator (08/30/2020) - Acute development of diffuse bilateral pulmonary infiltrates - Differentials include pneumonia/CHF (not consistent with CHF - felt to be differential syndrome) versus noncardiogenic pulmonary edema 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 - Daily CBC, CMP, Fibrinogen, PTT, PT, INR, Dimer, Phos, Mag, LDH - Cryoprecipitate today - Fibrinogen 96 - Continue on 20mg IV dex (in 2-3 doses) daily - Continue Cytarabine for cytokine reduction (Day 3 of 3) - Discussed with Nursing and patients daughter at bedside Leslie Gomez NP
[2020-09-06] MEDS ORDERED: ACETAMINOPHEN IV (For NPO) 1,000 MG in EMPTY BAG 1 BAG IVPB ONE (14:00)
[2020-09-06 14:17] LABS: Glucose,Whole Blood 128 mg/dL (75-99)
[2020-09-06 15:45] LABS: Glucose,Whole Blood 130 mg/dL (75-99)
[2020-09-06 17:43] LABS: Glucose,Whole Blood 155 mg/dL (75-99)
[2020-09-06] MEDS: NOREPINEPHRINE 32 MG in SODIUM CHLORIDE 0.9% 218 ML IV SCH (18:55)
[2020-09-06] MEDS: ATORVASTATIN 10 MG TAB PO SCH (19:45)
[2020-09-06 20:05] LABS: Glucose,Whole Blood 142 mg/dL (75-99)
[2020-09-06] MEDS: LINEZOLID 600 MG in DEXTROSE/WATER 1 300ML.BAG IVPB SCH (21:55)
[2020-09-06 22:09] LABS: Glucose,Whole Blood 110 mg/dL (75-99)
--- NOTE | 2020-09-06 22:40 | P.PN ---
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 HE was treated with Zosyn and eraxis, pulmonary/critical care team on the case and then following the patient closely, as well as hematology and oncology team and he is receiving CPR pain with close monitoring of hematologic parameters. Also he is afebrile with RVR needing Cardizem drip, amiodarone and digoxin and beta barbara, cardiology on the case. Also he is on steroids. Carotid fever low-grade temperature today. He is also on insulin drip and blood pressure is low normal. Review of systems: N/a 09/06/2020 Patient remains in the ICU intubated and sedated. Patient still spiking fever up to 1 or 2 today, could be due to sepsis versus his acute leukemic crisis. Infectious and hematology/oncology team on the case, Zosyn has been added to his antibiotic regimen by ID team, continue with acyclovir, Zyvox and Eraxis. Also oncology team continue with chemotherapy cytrarbine , while his blasts increased today to 47% compared to 30% yesterday also his WBC increased to 27 up to 32 today today. His platelets are 70 5K and hemoglobin stable at 7.4. Pulmonary on the team and they are considering a sedation holiday tomorrow Cardiology on the team and he still on Cardizem drip on the top of his beta barbara, digoxin and amiodarone, his rate is controlled, patient is not a candidate for anticoagulation due to his blood disease and Also on insulin drip and his sugars controlled. Prognosis remains guarded Active Medications Generic Name Dose Route Start Last Admin Trade Name Freq PRN Reason Stop Dose Admin Acetaminophen 500 mg 09/03/20 18:58 09/06/20 08:15 Acetaminophen Tab 500 Mg Tab PO 500 mg Q4HR PRN Administration Fever and/ or Pain Hydrocodone Bitart/Acetaminophen 1 each 08/24/20 20:04 09/03/20 12:38 Hydrocodone/Apap 10-325mg 1 Each Tab PO 1 each QID PRN Administration Pain Al Hydroxide/Mg Hydroxide 30 ml 08/25/20 21:43 08/29/20 02:27 Mag Hydrox/Al Hydrox/Simeth 30 Ml Cup PO 30 ml Q4HR PRN Administration GI Upset Amiodarone HCl 400 mg 09/01/20 21:00 09/06/20 19:44 Amiodarone 200 Mg Tab PO 400 mg BID ANA Administration Atorvastatin Calcium 10 mg 08/24/20 21:00 09/06/20 19:45 Atorvastatin 10 Mg Tab PO 10 mg HS ANA Administration Chlorhexidine Gluconate 15 ml 08/30/20 21:00 09/06/20 19:44 Chlorhexidine Gluconate 15 Ml Cup MUCOUS MEM 15 ml BID ANA Administration Dexamethasone Sodium Phosphate 5 mg 08/30/20 14:49 09/06/20 18:51 Dexamethasone Sod Phosphate 4 Mg/Ml 1 Ml Vial IV 5 mg Q6HR ANA Administration Digoxin 250 mcg 09/03/20 09:00 09/06/20 07:51 Digoxin 250 Mcg Tab PO 250 mcg DAILY ANA Administration Furosemide 40 mg 09/01/20 09:00 09/06/20 07:50 Furosemide 10 Mg/Ml 4 Ml Vial IV 40 mg DAILY ANA Administration Gabapentin 100 mg 08/24/20 22:00 09/06/20 19:44 Gabapentin 100 Mg Cap PO 100 mg TID ANA Administration Diltiazem HCl 125 mg/ Sodium 125 mls @ 15 mls/hr 08/29/20 00:30 09/06/20 19:11 Chloride IV 15 mg/hr .Q8H20M ANA 15 mls/hr Administration 15 MG/HR Propofol 1,000 mg/ IV Solution 100 mls @ 0 mls/hr 08/30/20 20:20 09/06/20 19:51 IV 25 mcg/kg/min .Q0M ANA 15.812 mls/hr Administration Protocol Titrate Insulin Human Regular 100 unit 101 mls @ 0 mls/hr 08/31/20 09:00 09/06/20 18:52 / Sodium Chloride IV 10 units/hr .Q0M ANA 10.1 mls/hr Titration Protocol Per Protocol Norepinephrine Bitartrate 32 250 mls @ 2.776 mls/hr 08/31/20 15:30 09/06/20 19:09 mg/ Sodium Chloride IV 0.02 mcg/kg/min .Q24H ANA 0.925 mls/hr Titration Protocol 0.06 MCG/KG/MIN Piperacillin Sod/Tazobactam 100 mls @ 25 mls/hr 09/03/20 16:00 09/06/20 15:36 Sod 3.375 gm/ Sodium Chloride IVPB 25 mls/hr Q8HR ANA Administration Acyclovir Sodium 1,000 mg/ 270 mls @ 270 mls/hr 09/04/20 16:00 09/06/20 15:36 Sodium Chloride IVPB 270 mls/hr Q8HR ANA Administration Anidulafungin 100 mg/ Sodium 100 mls @ 84 mls/hr 09/06/20 09:00 09/06/20 07:51 Chloride IVPB 84 mls/hr DAILY ANA Administration Sodium Chloride 1,000 mls @ 75 mls/hr 09/06/20 08:45 09/06/20 21:56 Saline 0.45% IV 75 mls/hr .[id number] ANA Administration Linezolid 600 mg/ IV Solution 300 mls @ 150 mls/hr 09/06/20 21:30 09/06/20 21:55 IVPB 150 mls/hr Q12HR ANA Administration Protocol Insulin Human Regular 9.9 unit 08/31/20 10:25 Insulin Regular Bolus (From Drip Bag) 0.1 unit/kg (9.9 unit) 09/30/20 21:00 IV ONCE PRN Blood Sugar - High Magnesium Oxide 400 mg 08/28/20 09:00 09/06/20 07:51 Magnesium Oxide 400 Mg Tab PO 400 mg DAILY ANA Administration Metoprolol Tartrate 100 mg 08/29/20 16:00 09/06/20 19:44 Metoprolol Tartrate 50 Mg Tab PO 100 mg TID ANA Administration Miscellaneous Information 1 each 08/24/20 20:19 Potassium Replacement Protocol 1 Each Misc MISCELLANE DAILY PRN Per Protocol Protocol Miscellaneous Information 1 each 08/24/20 20:20 Magnesium Replacement Protocol 1 Each Misc MISCELLANE DAILY PRN Per Protocol Protocol Pantoprazole Sodium 40 mg 08/31/20 10:45 09/06/20 19:45 Pantoprazole 40 Mg/10 Ml Vial IVP 40 mg BID ANA Administration Potassium Chloride 20 meq 08/28/20 09:00 09/06/20 19:45 Potassium Chloride Er 20 Meq Tab.Er PO 20 meq BID ANA Administration Senna 8.6 mg 09/03/20 21:00 09/06/20 07:50 Sennosides 8.6 Mg Tab PO 8.6 mg DAILY ANA Administration Tamsulosin HCl 0.4 mg 08/24/20 21:00 09/06/20 19:45 Tamsulosin 0.4 Mg Cap.Er.24h PO 0.4 mg BID ANA Administration Objective - Vital Signs Vital signs: Vital Signs Temp 102.9 F H 09/06/20 16:00 Pulse 109 H 09/06/20 17:00 Resp 26 H 09/06/20 17:00 BP 107/59 09/06/20 17:00 Pulse Ox 96 09/06/20 17:00 Intake & Output 09/05/20 09/06/20 09/06/20 18:59 06:59 18:59 Intake Total 2260.633 2298.641 2563.258 Output Total 2160 1355 2625 Balance 100.633 943.641 -61.742 Weight 105.415 kg Intake: IV 892 1247 841 0.9 120 825 75 Acyclovir Sodium 1,000 mg 500 250 500 In Sodium Chloride 0.9% 250 ml @ 270 mls/hr IVPB Q8HR [facility] Rx#:[id number] Normal Saline Pressure 72 72 66 Bag Piperacillin-Tazobactam 3 200 100 200 .375 gm In Sodium Chloride 0.9% 100 ml @ 25 mls/hr IVPB Q8HR [facility] Rx# :[id number] Intake, IV Titration 1108.633 310.306 4199.258 Amount ACETAMINOPHEN IV (For NPO 100 ) 1,000 mg In Empty Bag 1 bag @ 400 mls/hr IVPB ONCE ONE Rx#:[id number] Anidulafungin 100 mg In 250 100 Sodium Chloride 0.9% 100 ml @ 84 mls/hr IVPB DAILY [facility] Rx#:[id number] Diltiazem 125 mg In 125 245.75 104.75 Sodium Chloride 0.9% 100 ml @ 15 MG/HR 15 mls/hr IV .Q8H20M [facility] Rx#: [id number] Insulin Regular 100 unit 96.169 112.195 62.721 In Sodium Chloride 0.9% 100 ml @ Per Protocol IV .Q0M [facility] Rx#:[id number] Norepinephrine 32 mg In 17.128 0 13.787 Sodium Chloride 0.9% 218 ml @ 0.06 MCG/KG/MIN 2. 776 mls/hr IV .Q24H [facility] Rx#:[id number] Sodium Chloride 0.45% 1, 675 000 ml @ 75 mls/hr IV . [id number] [facility] Rx#:[id number] Sodium Chloride 0.9% 1, 225 75 000 ml @ 75 mls/hr IV . [id number] [facility] Rx#:[id number] propofoL 1,000 mg In 395.336 363.696 100.000 Empty Bag 1 bag @ Titrate IV .Q0M [facility] Rx#: [id number] Tube Feeding 260 240 280 Blood Product 91 Pooled Cryoprecipitate 91 Unit [id number] Other 90 120 Output: Urine 2160 1355 2625 Other: Voiding Method Indwelling Catheter Indwelling Catheter Indwelling Catheter # Bowel Movements 1 1 ABP, PAP, CO, CI - Last Documented Arterial Blood Pressure 138/59 - Exam -GENERAL: The patient is intubated and sedated HEENT: Pupils are round and equally reacting to light. EOMI. No scleral icterus. No conjunctival pallor. Normocephalic, atraumatic. No pharyngeal erythema. No thyromegaly. CARDIOVASCULAR: S1 and S2 present. No murmurs, rubs, or gallops. PULMONARY: Chest is clear to auscultation, no wheezing or crackles. ABDOMEN: Soft, nontender, nondistended, normoactive bowel sounds. No palpable organomegaly. MUSCULOSKELETAL: No joint swelling or deformity. -EXTREMITIES: No cyanosis, clubbing,. Mild bilateral pitting pedal edema. NEUROLOGICAL: Gross neurological examination did not reveal any focal deficits. SKIN: No rashes. no petechiae. - Labs CBC & Chem 7: 09/06/20 03:35 09/06/20 03:35 Labs: Abnormal Lab Results - Last 24 Hours (Table) 09/05/20 09/05/20 09/05/20 Range/Units 20:09 21:14 22:03 WBC (3.8-10.6) k/uL RBC (4.30-5.90) m/uL Hgb (13.0-17.5) gm/dL Hct (39.0-53.0) % MCV (80.0-100.0) fL MCH (25.0-35.0) pg MCHC (31.0-37.0) g/dL RDW (11.5-15.5) % Plt Count (150-450) k/uL Blast Cells % % Neutrophils # (Manual) (1.3-7.7) k/uL Lymphocytes # (Manual) (1.0-4.8) k/uL Blast Cells # (Man) (0) k/uL PT (9.0-12.0) sec INR (<1.2) APTT (22.0-30.0) sec Fibrinogen (200-500) mg/dL ABG pCO2 (35-45) mmHg Sodium (137-145) mmol/L Potassium (3.5-5.1) mmol/L Chloride (98-107) mmol/L BUN (9-20) mg/dL Glucose (74-99) mg/dL POC Glucose (mg/dL) 196 H 182 H 154 H (75-99) mg/dL Uric Acid (3.5-8.5) mg/dL Calcium (8.4-10.2) mg/dL Magnesium (1.6-2.3) mg/dL AST (17-59) U/L Lactate Dehydrogenase (313-618) U/L Total Protein (6.3-8.2) g/dL Albumin (3.5-5.0) g/dL 09/05/20 09/06/20 09/06/20 Range/Units 23:02 00:03 01:01 WBC (3.8-10.6) k/uL RBC (4.30-5.90) m/uL Hgb (13.0-17.5) gm/dL Hct (39.0-53.0) % MCV (80.0-100.0) fL MCH (25.0-35.0) pg MCHC (31.0-37.0) g/dL RDW (11.5-15.5) % Plt Count (150-450) k/uL Blast Cells % % Neutrophils # (Manual) (1.3-7.7) k/uL Lymphocytes # (Manual) (1.0-4.8) k/uL Blast Cells # (Man) (0) k/uL PT (9.0-12.0) sec INR (<1.2) APTT (22.0-30.0) sec Fibrinogen (200-500) mg/dL ABG pCO2 (35-45) mmHg Sodium (137-145) mmol/L Potassium (3.5-5.1) mmol/L Chloride (98-107) mmol/L BUN (9-20) mg/dL Glucose (74-99) mg/dL POC Glucose (mg/dL) 144 H 128 H 145 H (75-99) mg/dL Uric Acid (3.5-8.5) mg/dL Calcium (8.4-10.2) mg/dL Magnesium (1.6-2.3) mg/dL AST (17-59) U/L Lactate Dehydrogenase (313-618) U/L Total Protein (6.3-8.2) g/dL Albumin (3.5-5.0) g/dL 09/06/20 09/06/20 09/06/20 Range/Units 02:00 03:07 03:35 WBC 32.2 H (3.8-10.6) k/uL RBC 1.87 L (4.30-5.90) m/uL Hgb 7.4 L (13.0-17.5) gm/dL Hct 18.8 L* (39.0-53.0) % MCV 100.6 H (80.0-100.0) fL MCH 39.6 H (25.0-35.0) pg MCHC 39.3 H (31.0-37.0) g/dL RDW 18.5 H (11.5-15.5) % Plt Count 75 L (150-450) k/uL Blast Cells % 47 H* % Neutrophils # (Manual) 11.50 H (1.3-7.7) k/uL Lymphocytes # (Manual) 5.15 H (1.0-4.8) k/uL Blast Cells # (Man) 15.13 H (0) k/uL PT (9.0-12.0) sec INR (<1.2) APTT (22.0-30.0) sec Fibrinogen (200-500) mg/dL ABG pCO2 (35-45) mmHg Sodium (137-145) mmol/L Potassium (3.5-5.1) mmol/L Chloride (98-107) mmol/L BUN (9-20) mg/dL Glucose (74-99) mg/dL POC Glucose (mg/dL) 149 H 131 H (75-99) mg/dL Uric Acid (3.5-8.5) mg/dL Calcium (8.4-10.2) mg/dL Magnesium (1.6-2.3) mg/dL AST (17-59) U/L Lactate Dehydrogenase (313-618) U/L Total Protein (6.3-8.2) g/dL Albumin (3.5-5.0) g/dL 09/06/20 09/06/20 09/06/20 Range/Units 03:35 03:35 04:13 WBC (3.8-10.6) k/uL RBC (4.30-5.90) m/uL Hgb (13.0-17.5) gm/dL Hct (39.0-53.0) % MCV (80.0-100.0) fL MCH (25.0-35.0) pg MCHC (31.0-37.0) g/dL RDW (11.5-15.5) % Plt Count (150-450) k/uL Blast Cells % % Neutrophils # (Manual) (1.3-7.7) k/uL Lymphocytes # (Manual) (1.0-4.8) k/uL Blast Cells # (Man) (0) k/uL PT 13.0 H (9.0-12.0) sec INR 1.3 H (<1.2) APTT 21.8 L (22.0-30.0) sec Fibrinogen 95 L (200-500) mg/dL ABG pCO2 (35-45) mmHg Sodium 148 H (137-145) mmol/L Potassium 5.2 H (3.5-5.1) mmol/L Chloride 123 H (98-107) mmol/L BUN 41 H (9-20) mg/dL Glucose 143 H (74-99) mg/dL POC Glucose (mg/dL) 164 H (75-99) mg/dL Uric Acid 3.3 L (3.5-8.5) mg/dL Calcium 7.3 L (8.4-10.2) mg/dL Magnesium 2.8 H (1.6-2.3) mg/dL AST 92 H (17-59) U/L Lactate Dehydrogenase 91637 H (313-618) U/L Total Protein 5.1 L (6.3-8.2) g/dL Albumin 2.6 L (3.5-5.0) g/dL 09/06/20 09/06/20 09/06/20 Range/Units 04:38 05:01 06:06 WBC (3.8-10.6) k/uL RBC (4.30-5.90) m/uL Hgb (13.0-17.5) gm/dL Hct (39.0-53.0) % MCV (80.0-100.0) fL MCH (25.0-35.0) pg MCHC (31.0-37.0) g/dL RDW (11.5-15.5) % Plt Count (150-450) k/uL Blast Cells % % Neutrophils # (Manual) (1.3-7.7) k/uL Lymphocytes # (Manual) (1.0-4.8) k/uL Blast Cells # (Man) (0) k/uL PT (9.0-12.0) sec INR (<1.2) APTT (22.0-30.0) sec Fibrinogen (200-500) mg/dL ABG pCO2 31 L (35-45) mmHg Sodium (137-145) mmol/L Potassium (3.5-5.1) mmol/L Chloride (98-107) mmol/L BUN (9-20) mg/dL Glucose (74-99) mg/dL POC Glucose (mg/dL) 157 H 163 H (75-99) mg/dL Uric Acid (3.5-8.5) mg/dL Calcium (8.4-10.2) mg/dL Magnesium (1.6-2.3) mg/dL AST (17-59) U/L Lactate Dehydrogenase (313-618) U/L Total Protein (6.3-8.2) g/dL Albumin (3.5-5.0) g/dL 09/06/20 09/06/20 09/06/20 Range/Units 06:58 08:12 10:12 WBC (3.8-10.6) k/uL RBC (4.30-5.90) m/uL Hgb (13.0-17.5) gm/dL Hct (39.0-53.0) % MCV (80.0-100.0) fL MCH (25.0-35.0) pg MCHC (31.0-37.0) g/dL RDW (11.5-15.5) % Plt Count (150-450) k/uL Blast Cells % % Neutrophils # (Manual) (1.3-7.7) k/uL Lymphocytes # (Manual) (1.0-4.8) k/uL Blast Cells # (Man) (0) k/uL PT (9.0-12.0) sec INR (<1.2) APTT (22.0-30.0) sec Fibrinogen (200-500) mg/dL ABG pCO2 (35-45) mmHg Sodium (137-145) mmol/L Potassium (3.5-5.1) mmol/L Chloride (98-107) mmol/L BUN (9-20) mg/dL Glucose (74-99) mg/dL POC Glucose (mg/dL) 149 H 141 H 128 H (75-99) mg/dL Uric Acid (3.5-8.5) mg/dL Calcium (8.4-10.2) mg/dL Magnesium (1.6-2.3) mg/dL AST (17-59) U/L Lactate Dehydrogenase (313-618) U/L Total Protein (6.3-8.2) g/dL Albumin (3.5-5.0) g/dL 09/06/20 09/06/20 09/06/20 Range/Units 12:02 14:15 15:44 WBC (3.8-10.6) k/uL RBC (4.30-5.90) m/uL Hgb (13.0-17.5) gm/dL Hct (39.0-53.0) % MCV (80.0-100.0) fL MCH (25.0-35.0) pg MCHC (31.0-37.0) g/dL RDW (11.5-15.5) % Plt Count (150-450) k/uL Blast Cells % % Neutrophils # (Manual) (1.3-7.7) k/uL Lymphocytes # (Manual) (1.0-4.8) k/uL Blast Cells # (Man) (0) k/uL PT (9.0-12.0) sec INR (<1.2) APTT (22.0-30.0) sec Fibrinogen (200-500) mg/dL ABG pCO2 (35-45) mmHg Sodium (137-145) mmol/L Potassium (3.5-5.1) mmol/L Chloride (98-107) mmol/L BUN (9-20) mg/dL Glucose (74-99) mg/dL POC Glucose (mg/dL) 141 H 128 H 130 H (75-99) mg/dL Uric Acid (3.5-8.5) mg/dL Calcium (8.4-10.2) mg/dL Magnesium (1.6-2.3) mg/dL AST (17-59) U/L Lactate Dehydrogenase (313-618) U/L Total Protein (6.3-8.2) g/dL Albumin (3.5-5.0) g/dL 09/06/20 Range/Units 17:42 WBC (3.8-10.6) k/uL RBC (4.30-5.90) m/uL Hgb (13.0-17.5) gm/dL Hct (39.0-53.0) % MCV (80.0-100.0) fL MCH (25.0-35.0) pg MCHC (31.0-37.0) g/dL RDW (11.5-15.5) % Plt Count (150-450) k/uL Blast Cells % % Neutrophils # (Manual) (1.3-7.7) k/uL Lymphocytes # (Manual) (1.0-4.8) k/uL Blast Cells # (Man) (0) k/uL PT (9.0-12.0) sec INR (<1.2) APTT (22.0-30.0) sec Fibrinogen (200-500) mg/dL ABG pCO2 (35-45) mmHg Sodium (137-145) mmol/L Potassium (3.5-5.1) mmol/L Chloride (98-107) mmol/L BUN (9-20) mg/dL Glucose (74-99) mg/dL POC Glucose (mg/dL) 155 H (75-99) mg/dL Uric Acid (3.5-8.5) mg/dL Calcium (8.4-10.2) mg/dL Magnesium (1.6-2.3) mg/dL AST (17-59) U/L Lactate Dehydrogenase (313-618) U/L Total Protein (6.3-8.2) g/dL Albumin (3.5-5.0) g/dL Microbiology - Last 24 Hours (Table) 09/06/20 09:05 Urine Culture - Preliminary Urine,Catheterized 09/06/20 11:16 Sputum Culture - Preliminary Sputum 09/04/20 11:11 Gram Stain - Final Sputum Sputum Culture - Final 09/04/20 11:11 Blood Culture - Preliminary Blood No Growth after 48 hours 09/04/20 11:11 Urine Culture - Final Urine,Catheterized Assessment and Plan Assessment: Acute lung injury secondary to a AML treatment regimens Sepsis, fever with leukocytosis, and no source of infection, possible respiratory 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 Continue with antibiotics as per infectious disease recommendation, continue with amiodarone, digoxin, Lopressor and Cardizem as per cardiology team. Pulmonary team are following the case closely for his management of his ventilation. Also patient on chemotherapy as per oncology team Labs and medication were reviewed.. Continue same treatment. Continue with symptomatic treatment. Resume home medication. Monitor lytes and vitals. DVT and GI prophylaxis. Further recommendations of the clinical course of the patient DVT prophylaxis: Not to calculation for thrombocytopenia heparin GI Prophylaxis: Pepcid or PPI Prognosis is guarded
[2020-09-07 00:36] LABS: Glucose,Whole Blood 205 mg/dL (75-99)
[2020-09-07] MEDS: INSULIN REGULAR 100 UNIT in SODIUM CHLORIDE 0.9% 100 ML IV SCH ×3 (00:36→14:34)
--- NOTE | 2020-09-07 00:41 | PN ---
PROGRESS NOTE DATE OF SERVICE: 09/06/2020 REASON FOR FOLLOWUP: Fever. INTERVAL HISTORY: The patient has been running fever with a T-max 103 degrees Fahrenheit. The patient is hemodynamically stable requiring low-dose pressor support and apparently the patient did drop his blood pressure with tachycardia. The patient tolerating his tube feeds. No diarrhea has been reported. No other changes in clinical condition by the nursing staff. PHYSICAL EXAMINATION: His blood pressure is 90/69 with a pulse of 105, temperature 101. He is 98% on 40% FiO2. General description is an elderly male lying in bed in no distress. RESPIRATORY SYSTEM: Unlabored breathing, decreased breath sounds in the bases, no wheeze. HEART: S1, S2. Regular rate and rhythm. ABDOMEN: Soft, no tenderness. EXTREMITIES: No edema of feet. LABS: Hemoglobin 7.4, white count 32.2, BUN of 41, creatinine 1.06. Sputum repeat is currently pending. Urine is pending. DIAGNOSTIC IMPRESSION AND PLAN: Patient with acute respiratory failure, now with persistent fever. This patient did have good gram-negative coverage with Zosyn. We will add Zyvox to cover for the gram- positive while waiting for the culture to finalize and monitor his clinical course closely. Overall prognosis remains to be guarded. Continue supportive care. MMODL / IJN: [id number] /
[2020-09-07] MEDS: PIPERACILLIN-TAZOBACTAM 3.375 GM in SODIUM CHLORIDE 0.9% 100 ML IVPB SCH ×3 (00:49→16:26)
[2020-09-07] MEDS: ACYCLOVIR SODIUM 1,000 MG in SODIUM CHLORIDE 0.9% 250 ML IVPB SCH ×3 (00:49→17:29)
[2020-09-07 02:01] LABS: Glucose,Whole Blood 221 mg/dL (75-99)
[2020-09-07] MEDS: DEXAMETHASONE SOD PHOSPHATE 4 MG/ML 1 ML VIAL IV SCH ×4 (02:02→17:29)
[2020-09-07 03:36] LABS: Anisocytosis Slight; Hypochromasia Moderate; MCH 37.1 pg (25.0-35.0); MCHC 36.6 g/dL (31.0-37.0); MCV 101.4 fL (80.0-100.0); Macrocytosis Moderate; Mean Platelet Volume 8.8; Poikilocytosis Slight; RBC 1.73 m/uL (4.30-5.90); RDW 18.3 % (11.5-15.5); WBC 15.2 k/uL (3.8-10.6)
[2020-09-07 03:51] LABS: ALT 18 U/L (4-49); AST 71 U/L (17-59); African American GFR (CKD) >90 (>60 ml/min/1.73 sqM); Albumin 2.4 g/dL (3.5-5.0); Alkaline Phosphatase 43 U/L (38-126); Anion Gap 5 mmol/L; Blood Urea Nitrogen 42 mg/dL (9-20); Calcium 7.3 mg/dL (8.4-10.2); Carbon Dioxide 20 mmol/L (22-30); Chloride 122 mmol/L (98-107); Glucose 200 mg/dL (74-99); Magnesium 2.7 mg/dL (1.6-2.3); Non-African American GFR(CKD) 85 (>60 ml/min/1.73 sqM); Phosphorus 5.2 mg/dL (2.5-4.5); Potassium 4.2 mmol/L (3.5-5.1); Sodium 147 mmol/L (137-145); Total Bilirubin 0.8 mg/dL (0.2-1.3); Total Protein 4.8 g/dL (6.3-8.2)
[2020-09-07 03:52] LABS: LDH 10264 U/L (313-618)
[2020-09-07 04:01] LABS: HGB 6.4 gm/dL (13.0-17.5)
[2020-09-07 04:02] LABS: HCT 17.6 % (39.0-53.0); Platelet Count 52 k/uL (150-450)
[2020-09-07] MEDS: DILTIAZEM 125 MG in SODIUM CHLORIDE 0.9% 100 ML IV SCH ×3 (04:05→20:55)
[2020-09-07 04:09] LABS: D-Dimer 34.33 mg/L FEU (<0.60); Partial Thromboplastin Time 22.3 sec (22.0-30.0); Prothrombin Time 14.1 sec (9.0-12.0)
[2020-09-07 04:10] LABS: INR 1.4 (<1.2)
[2020-09-07 05:14] LABS: Band Neutrophils % 3 %; Eosinophils # (M) 0.15 k/uL (0-0.7); Lymphocytes # (M) 0.46 k/uL (1.0-4.8); Neutrophils % (M) 55 %
[2020-09-07 05:15] LABS: Blast Cells # (M) 5.62 k/uL (0); Nucleated Red Blood Cells 0 /100 WBC (0-0); Total Cells Counted 200
[2020-09-07 05:20] LABS: Allen Test Performed? Yes
[2020-09-07 05:21] LABS: ABG Base Excess -4.1 mmol/L; ABG HCO3 20 mmol/L (21-25); ABG PCO2 30 mmHg (35-45); ABG PH 7.43 (7.35-7.45); ABG PO2 91 mmHg (83-108); ABG TCO2 21 mmol/L (19-24)
[2020-09-07 06:06] LABS: Glucose,Whole Blood 195 mg/dL (75-99)
--- NOTE | 2020-09-07 07:24 | XR ---
EXAMINATION TYPE: XR chest 1V portable DATE OF EXAM: 09/07/2020 Comparison: 09/06/2020 Clinical History: 75-year-old male intubated Findings: ET tube is satisfactory. NG tube courses below the diaphragm. Left IJ CVC with tip at the mid SVC lev el. Heart remains mildly enlarged with patchy bibasilar interstitial opacities.. Normal variant azygo us fissure. Impression: Cardiomegaly and similar interstitial and patchy lower lung densities, possible sequela of mild CHF. Clinically correlate.
[2020-09-07] MEDS: FUROSEMIDE 10 MG/ML 4 ML VIAL IV SCH (08:34)
[2020-09-07] MEDS: PANTOPRAZOLE 40 MG/10 ML VIAL IVP SCH ×2 (08:34→20:54)
[2020-09-07] MEDS: METOPROLOL TARTRATE 50 MG TAB PO SCH ×3 (08:34→20:45)
[2020-09-07] MEDS: CHLORHEXIDINE GLUCONATE 15 ML CUP MUCOUS MEM SCH ×2 (08:34→20:53)
[2020-09-07] MEDS: AMIODARONE 200 MG TAB PO SCH ×2 (08:34→20:46)
[2020-09-07] MEDS: MAGNESIUM OXIDE 400 MG TAB PO SCH (08:35)
[2020-09-07] MEDS: GABAPENTIN 100 MG CAP PO SCH ×3 (08:35→20:46)
[2020-09-07] MEDS: DIGOXIN 250 MCG TAB PO SCH (08:35)
[2020-09-07] MEDS: SENNOSIDES 8.6 MG TAB PO SCH (08:35)
[2020-09-07] MEDS: POTASSIUM CHLORIDE ER 20 MEQ TAB.ER PO SCH ×2 (08:35→20:54)
[2020-09-07 08:39] LABS: Glucose,Whole Blood 152 mg/dL (75-99)
[2020-09-07] MEDS: TAMSULOSIN 0.4 MG CAP.ER.24H PO SCH ×2 (08:41→20:54)
[2020-09-07] MEDS: LINEZOLID 600 MG in DEXTROSE/WATER 1 300ML.BAG IVPB SCH ×2 (08:52→20:53)
--- NOTE | 2020-09-07 10:14 | P.PN ---
Subjective This is a pleasant 75-year-old male currently undergoing chemotherapy. He is in the intensive care unit intubated on Levophed and sedation. He continues to be in atrial flutter with a heart rate of 82. Blood pressure 132/82. He has been consistently anemic however has had a drop in his hemoglobin this morning to 6.4 requiring a transfusion of packed red blood cells. Other lab data reviewed, WBC 15.2, platelets 52, blast cell percentage 37, INR 1.4, d-dimer 34.33, pH 7.43, pCO2 30, bicarb 20, sodium 147, potassium 4.2, creatinine 0.87 and magnesium 2.7. Currently maintained on amiodarone 400 mg twice a day, atorvastatin 10 mg at bedtime, diltiazem 15 mg per hour, digoxin 250 g daily, Lasix 40 mg IV daily and metoprolol 100 mg 3 times a day. GENERAL: No acute distress. NECK: Supple without JVD or thyromegaly. LUNGS: Bibasilar rales, no wheezes or rhonchi Respiration equal and unlabored. Diminished. HEART: Irregular rate and rhythm with systolic ejection murmur at the base, no rubs or gallops. S1 and S2 heard. EXTREMITIES: Normal range of motion, bilateral lower extremity trace pitting edema. No clubbing or cyanosis. Peripheral pulses intact. ASSESSMENT Paroxysmal atrial fibrillation/atrial flutter with rapid ventricular response. Status post cardioversion 2017 Acute on chronic diastolic heart failure on admission Acute systolic heart failure with evidence of possible takotsubo Aortic stenosis Hypertension Dyslipidemia Diabetes mellitus Anemia, requiring blood transfusion PLAN Continue current medical regimen. Check digoxin level. Prognosis guarded, further recommendations to follow. Nurse Practitioner note has been reviewed, I agree with a documented findings and plan of care. Patient was seen and examined. Objective - Vital Signs Vital signs: Vital Signs Temp 98.5 F 09/07/20 08:37 Pulse 89 09/07/20 08:37 Resp 29 H 09/07/20 08:37 BP 166/67 09/07/20 08:37 Pulse Ox 97 09/07/20 08:37 Intake & Output 09/06/20 09/07/20 09/07/20 18:59 06:59 18:59 Intake Total 2765.258 2477.623 523.057 Output Total 2925 1495 95 Balance -159.742 982.623 428.057 Weight 107.1 kg Intake: IV 853 1541 81 0.9 75 0.9@ 75 825 75 Acyclovir Sodium 1,000 mg 500 250 In Sodium Chloride 0.9% 250 ml @ 270 mls/hr IVPB Q8HR [facility] Rx#:[id number] Linezolid 600 mg In 300 Dextrose/Water 1 300ml. bag @ 150 mls/hr IVPB Q12HR ANA Rx#:[id number] Normal Saline Pressure 78 66 6 Bag Piperacillin-Tazobactam 3 200 100 .375 gm In Sodium Chloride 0.9% 100 ml @ 25 mls/hr IVPB Q8HR [facility]NA Rx# :[id number] Intake, IV Titration 1381.258 566.623 112.057 Amount ACETAMINOPHEN IV (For NPO 100 ) 1,000 mg In Empty Bag 1 bag @ 400 mls/hr IVPB ONCE ONE Rx#:[id number] Anidulafungin 100 mg In 100 Sodium Chloride 0.9% 100 ml @ 84 mls/hr IVPB DAILY ANA Rx#:[id number] Diltiazem 125 mg In 104.75 247 Sodium Chloride 0.9% 100 ml @ 15 MG/HR 15 mls/hr IV .Q8H20M [facility] Rx#: [id number] Insulin Regular 100 unit 62.721 113.305 In Sodium Chloride 0.9% 100 ml @ Per Protocol IV .Q0M ANA Rx#:[id number] Norepinephrine 32 mg In 13.787 7.493 12.441 Sodium Chloride 0.9% 218 ml @ 0.06 MCG/KG/MIN 2. 776 mls/hr IV .Q24H ANA Rx#:[id number] Sodium Chloride 0.45% 1, 825 000 ml @ 75 mls/hr IV . [id number] ANA Rx#:[id number] Sodium Chloride 0.9% 1, 75 000 ml @ 75 mls/hr IV . [id number] [facility] Rx#:[id number] propofoL 1,000 mg In 100.000 198.825 99.616 Empty Bag 1 bag @ Titrate IV .Q0M ANA Rx#: [id number] Tube Feeding 320 280 20 Blood Product 91 0 310 Pooled Cryoprecipitate 91 Unit [id number] Rc Irr As1 Unit 0 [id number] Rc Irr As1 Unit 0 310 [id number] Other 120 90 Output: Urine 2925 1495 95 Other: Voiding Method Indwelling Catheter Indwelling Catheter # Bowel Movements 1 ABP, PAP, CO, CI - Last Documented Arterial Blood Pressure 105/49 - Labs CBC & Chem 7: 09/07/20 03:30 09/07/20 03:30 Labs: Abnormal Lab Results - Last 24 Hours (Table) 09/06/20 09/06/20 09/06/20 Range/Units 10:12 12:02 12:30 WBC (3.8-10.6) k/uL RBC (4.30-5.90) m/uL Hgb (13.0-17.5) gm/dL Hct (39.0-53.0) % MCV (80.0-100.0) fL MCH (25.0-35.0) pg RDW (11.5-15.5) % Plt Count (150-450) k/uL Blast Cells % % Neutrophils # (Manual) (1.3-7.7) k/uL Lymphocytes # (Manual) (1.0-4.8) k/uL Blast Cells # (Man) (0) k/uL PT (9.0-12.0) sec INR (<1.2) Fibrinogen (200-500) mg/dL D-Dimer (<0.60) mg/L FEU ABG pCO2 (35-45) mmHg ABG HCO3 (21-25) mmol/L Sodium (137-145) mmol/L Chloride (98-107) mmol/L Carbon Dioxide (22-30) mmol/L BUN (9-20) mg/dL Glucose (74-99) mg/dL POC Glucose (mg/dL) 128 H 141 H (75-99) mg/dL Uric Acid (3.5-8.5) mg/dL Calcium (8.4-10.2) mg/dL Phosphorus (2.5-4.5) mg/dL Magnesium (1.6-2.3) mg/dL AST (17-59) U/L Lactate Dehydrogenase (313-618) U/L Total Protein (6.3-8.2) g/dL Albumin (3.5-5.0) g/dL Crossmatch See Detail 09/06/20 09/06/20 09/06/20 Range/Units 14:15 15:44 17:42 WBC (3.8-10.6) k/uL RBC (4.30-5.90) m/uL Hgb (13.0-17.5) gm/dL Hct (39.0-53.0) % MCV (80.0-100.0) fL MCH (25.0-35.0) pg RDW (11.5-15.5) % Plt Count (150-450) k/uL Blast Cells % % Neutrophils # (Manual) (1.3-7.7) k/uL Lymphocytes # (Manual) (1.0-4.8) k/uL Blast Cells # (Man) (0) k/uL PT (9.0-12.0) sec INR (<1.2) Fibrinogen (200-500) mg/dL D-Dimer (<0.60) mg/L FEU ABG pCO2 (35-45) mmHg ABG HCO3 (21-25) mmol/L Sodium (137-145) mmol/L Chloride (98-107) mmol/L Carbon Dioxide (22-30) mmol/L BUN (9-20) mg/dL Glucose (74-99) mg/dL POC Glucose (mg/dL) 128 H 130 H 155 H (75-99) mg/dL Uric Acid (3.5-8.5) mg/dL Calcium (8.4-10.2) mg/dL Phosphorus (2.5-4.5) mg/dL Magnesium (1.6-2.3) mg/dL AST (17-59) U/L Lactate Dehydrogenase (313-618) U/L Total Protein (6.3-8.2) g/dL Albumin (3.5-5.0) g/dL Crossmatch 09/06/20 09/06/20 09/07/20 Range/Units 20:04 22:08 00:35 WBC (3.8-10.6) k/uL RBC (4.30-5.90) m/uL Hgb (13.0-17.5) gm/dL Hct (39.0-53.0) % MCV (80.0-100.0) fL MCH (25.0-35.0) pg RDW (11.5-15.5) % Plt Count (150-450) k/uL Blast Cells % % Neutrophils # (Manual) (1.3-7.7) k/uL Lymphocytes # (Manual) (1.0-4.8) k/uL Blast Cells # (Man) (0) k/uL PT (9.0-12.0) sec INR (<1.2) Fibrinogen (200-500) mg/dL D-Dimer (<0.60) mg/L FEU ABG pCO2 (35-45) mmHg ABG HCO3 (21-25) mmol/L Sodium (137-145) mmol/L Chloride (98-107) mmol/L Carbon Dioxide (22-30) mmol/L BUN (9-20) mg/dL Glucose (74-99) mg/dL POC Glucose (mg/dL) 142 H 110 H 205 H (75-99) mg/dL Uric Acid (3.5-8.5) mg/dL Calcium (8.4-10.2) mg/dL Phosphorus (2.5-4.5) mg/dL Magnesium (1.6-2.3) mg/dL AST (17-59) U/L Lactate Dehydrogenase (313-618) U/L Total Protein (6.3-8.2) g/dL Albumin (3.5-5.0) g/dL Crossmatch 09/07/20 09/07/20 09/07/20 Range/Units 01:59 03:30 03:30 WBC 15.2 H (3.8-10.6) k/uL RBC 1.73 L (4.30-5.90) m/uL Hgb 6.4 L* (13.0-17.5) gm/dL Hct 17.6 L* (39.0-53.0) % MCV 101.4 H (80.0-100.0) fL MCH 37.1 H (25.0-35.0) pg RDW 18.3 H (11.5-15.5) % Plt Count 52 L (150-450) k/uL Blast Cells % 37 H* % Neutrophils # (Manual) 8.80 H (1.3-7.7) k/uL Lymphocytes # (Manual) 0.46 L (1.0-4.8) k/uL Blast Cells # (Man) 5.62 H (0) k/uL PT 14.1 H (9.0-12.0) sec INR 1.4 H (<1.2) Fibrinogen 111 L (200-500) mg/dL D-Dimer 34.33 H (<0.60) mg/L FEU ABG pCO2 (35-45) mmHg ABG HCO3 (21-25) mmol/L Sodium (137-145) mmol/L Chloride (98-107) mmol/L Carbon Dioxide (22-30) mmol/L BUN (9-20) mg/dL Glucose (74-99) mg/dL POC Glucose (mg/dL) 221 H (75-99) mg/dL Uric Acid (3.5-8.5) mg/dL Calcium (8.4-10.2) mg/dL Phosphorus (2.5-4.5) mg/dL Magnesium (1.6-2.3) mg/dL AST (17-59) U/L Lactate Dehydrogenase (313-618) U/L Total Protein (6.3-8.2) g/dL Albumin (3.5-5.0) g/dL Crossmatch 09/07/20 09/07/20 09/07/20 Range/Units 03:30 05:12 06:04 WBC (3.8-10.6) k/uL RBC (4.30-5.90) m/uL Hgb (13.0-17.5) gm/dL Hct (39.0-53.0) % MCV (80.0-100.0) fL MCH (25.0-35.0) pg RDW (11.5-15.5) % Plt Count (150-450) k/uL Blast Cells % % Neutrophils # (Manual) (1.3-7.7) k/uL Lymphocytes # (Manual) (1.0-4.8) k/uL Blast Cells # (Man) (0) k/uL PT (9.0-12.0) sec INR (<1.2) Fibrinogen (200-500) mg/dL D-Dimer (<0.60) mg/L FEU ABG pCO2 30 L (35-45) mmHg ABG HCO3 20 L (21-25) mmol/L Sodium 147 H (137-145) mmol/L Chloride 122 H (98-107) mmol/L Carbon Dioxide 20 L (22-30) mmol/L BUN 42 H (9-20) mg/dL Glucose 200 H (74-99) mg/dL POC Glucose (mg/dL) 195 H (75-99) mg/dL Uric Acid 3.0 L (3.5-8.5) mg/dL Calcium 7.3 L (8.4-10.2) mg/dL Phosphorus 5.2 H (2.5-4.5) mg/dL Magnesium 2.7 H (1.6-2.3) mg/dL AST 71 H (17-59) U/L Lactate Dehydrogenase 88091 H (313-618) U/L Total Protein 4.8 L (6.3-8.2) g/dL Albumin 2.4 L (3.5-5.0) g/dL Crossmatch 09/07/20 Range/Units 08:38 WBC (3.8-10.6) k/uL RBC (4.30-5.90) m/uL Hgb (13.0-17.5) gm/dL Hct (39.0-53.0) % MCV (80.0-100.0) fL MCH (25.0-35.0) pg RDW (11.5-15.5) % Plt Count (150-450) k/uL Blast Cells % % Neutrophils # (Manual) (1.3-7.7) k/uL Lymphocytes # (Manual) (1.0-4.8) k/uL Blast Cells # (Man) (0) k/uL PT (9.0-12.0) sec INR (<1.2) Fibrinogen (200-500) mg/dL D-Dimer (<0.60) mg/L FEU ABG pCO2 (35-45) mmHg ABG HCO3 (21-25) mmol/L Sodium (137-145) mmol/L Chloride (98-107) mmol/L Carbon Dioxide (22-30) mmol/L BUN (9-20) mg/dL Glucose (74-99) mg/dL POC Glucose (mg/dL) 152 H (75-99) mg/dL Uric Acid (3.5-8.5) mg/dL Calcium (8.4-10.2) mg/dL Phosphorus (2.5-4.5) mg/dL Magnesium (1.6-2.3) mg/dL AST (17-59) U/L Lactate Dehydrogenase (313-618) U/L Total Protein (6.3-8.2) g/dL Albumin (3.5-5.0) g/dL Crossmatch Microbiology - Last 24 Hours (Table) 09/06/20 11:16 Gram Stain - Preliminary Sputum Sputum Culture - Preliminary 09/06/20 09:05 Urine Culture - Preliminary Urine,Catheterized 09/04/20 11:11 Gram Stain - Final Sputum Sputum Culture - Final 09/04/20 11:11 Blood Culture - Preliminary Blood No Growth after 48 hours
[2020-09-07 10:23] LABS: Glucose,Whole Blood 145 mg/dL (75-99)
[2020-09-07] MEDS: ANIDULAFUNGIN 100 MG in SODIUM CHLORIDE 0.9% 100 ML IVPB SCH (11:10)
[2020-09-07] MEDS: SODIUM CHLORIDE 0.45% 1,000 ML IV SCH (12:58)
[2020-09-07 13:03] LABS: Glucose,Whole Blood 141 mg/dL (75-99)
--- NOTE | 2020-09-07 14:12 | P.PN ---
Subjective Progress Note Date: 09/07/20 Principal diagnosis: Acute hypoxic respiratory failure with bilateral pneumonia in immunocompromised host. 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 The patient got transferred to the intensive care unit yesterday because of an acute hypoxic respiratory failure/acute lung injury with development of bilateral pulmonary infiltrates. Note that the patient was originally hospitalized on 08/24/2024 shortness of breath and difficulty breathing. The patient is known to have chronic atrial fibrillation along with hypertension and hyperlipidemia. He was also being seen by cardiology regarding atrial fibrillation. As the patient developed breath and pulmonary infiltrates and acute hypoxic respiratory failure, the patient a chest to the intensive care unit and he was placed on a BiPAP at a pressure of 14/5 cm of water. FiO2 was as high as 90% and it was being titrated. The patient also had been placed on broad-spectrum antibiotics including IV Zosyn. He was being diuresis with IV Lasix 40 mg every 12 hours. He was on a Cardizem drip at 15 mg an hour to control atrial fibrillation. Remains on Decadron 5 mg IV every 6 hours. The chest x-ray as mentioned shows interval development of bilateral perihilar pulmonary infiltrates which are currently diffuse. The patient demonstrated gradual improvement in the white cell count from a baseline of 0.7 up to 20 and the platelet count is up to 79 with a hemoglobin of 8.0. The patient did not receive any packed RBC transfusions. The differential count shows 46% blasts. Renal function is impaired in the creatinine is 1.47 as the patient is being diuresed. Uric acid level is up to 8.9 with a calcium level of 8.3 and phosphorus level of 5.8 and LDH level was as high as 5244 indicating the possibility of a tumor lysis syndrome. Based on that, the patient was given a dose of respirator he carries yesterday and urine acid level is improved considerably. The echo from last month showed a preserved LV function with an ejection fraction of 6065%. The patient has mild MR, RV is mildly enlarged. Note that the patient over progressively more short of breath and hypoxic. At point, the patient was intubated and placed on a mechanical ventilator. I saw this patient this morning. The patient was already intubated on a mechanical ventilator on assist control mode with a rate of 24 with a tidal volume of 450 and FiO2 of 50% with a PEEP of 10. The blood gas showed a pH of 7.42 with a pCO2 of 40 and pO2 of 104. This was on FiO2 of 60%. The patient was sedated with propofol running at 75 mg per KG per minute. The patient is also on insulin at 5 units an hour for blood sugar control. The patient is on norepinephrine infusion at 0.06 units per KG per minute. Cardizem drip is running at 50 mg an hour in regards to her atrial fibrillation. The heart rate is in the order of 110-120. He is afebrile. Chest x-rays showing bilateral pulmonary infiltrates, stable compared to yesterday. immediately a bronchoscopy was done and the bronchioloalveolar lavage of the right middle lobe was collected as there was a concern of an underlying infection. The patient is currently on IV Zosyn. Lasix was discontinued. On 09/01/2020, the patient is being seen in follow-up in the intensive care unit. The patient remains intubated on a mechanical ventilator. This morning the patient is sedated with propofol at the rate of 45 g per KG per minute. The patient remains on mechanical ventilator on assist control mode at the rate of 24 with a tidal volume of 450 and FiO2 of 40% with a PEEP of 10. Blood gases from today showed a pH of 7.44 with a pCO2 of 38 and pO2 of 152. Chest x-ray still showing diffuse bilateral pulmonary infiltrates slightly improved compared to yesterday. Oxidation is also improved. Based on that, I made recommendation s to gradually wean off the PEEP down to 5 cm of water. The patient unfortunately continues to be in atrial fibrillation. The patient is not adequately controlled. The patient is on a Cardizem drip at 15 mg an hour. The patient is also on amiodarone 0.5 mg an hour and the patient is also on meto prolol 100 mg by mouth 3 times a day. The patient is being supported with norepinephrine infusion for blood pressure support at the rate of 0.06 mg per KG per minute. The patient is afebrile. The patient is currently on IV Zosyn. The patient's bronchoscopy and the bronchioloalveolar lavage was done yesterday and the patient does not have any possible microbial growth for now. No fever. No chills. He is receiving daily Lasix 40 mg IV push to maintain adequate fluid balance. In terms of hematologic profile, the white cell count is up to 28 and the patient has 12% blast cells. The platelet count is at 96 with a hemoglobin of 7.3. The patient is currently on Hydrea the patient is also on Decadron. Discussed the case with oncology. We will hold off the ATRA treatment as the patient has gone into differentiation syndrome. On 09/02/2020, I'm seeing the patient for a follow-up in the intensive care unit. The patient remains intubated on a mechanical ventilator. This morning the patient remains on propofol at 50 g per KG per minute. The patient is also on a mechanical ventilator at the rate of 24 with a tidal volume of 450 and FiO2 of 40% with a PEEP of 5. Chest x-ray is showing stable bilateral pulmonary infiltrates without any major change compared to yesterday. Meanwhile the blood gases from today showed a pH of 7.47 with a pCO2 of 34 and pO2 of 110. The patient remains in atrial fibrillation on obviously it has been very difficult to control the rate. He is not a candidate for cardioversion and the patient cannot take any anticoagulants. 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 In terms of his A. fib, the patient remains on a combination of Cardizem drip, amiodarone drip in addition to beta blockers pipe fitter maintenance. Digoxin was also added by cardiology. Heart rate is ranging between 110 and 130, irregular. He is afebrile. He is covered with Zosyn. The bronchoscopy and bronchial alveolar lavage done earlier yielded no microbial growth. The patient remains on Decadron. The patient remains on Hydrea. LDH is on the rise. White cell count today is at 26.4. Platelet count is at 91. The patient is 54% blasts and off and sleepy is a sign of progression of his underlying AML. The BUN is at 53 with a creatinine of 1.05. The patient was given daily Lasix and the patient's fluid balance has been +7 40 mL over the past 24 hours. The patient is on enteral feeding for nutritional support. The patient is well sedated. A sedation holiday was given today. He was taken off the propofol and subsequently became more tachycardic and restless and asynchronous with a mechanical ventilator and the procedure had to be aborted and the patient was p laced back on sedation. On 09/03/2020, seeing this patient for a follow-up in the intensive care unit and the patient is doing poorly. The patient remains sedated on a mechanical ventilator. The patient is on propofol infusion running at 60 g per KG per minute. The patient is on a mechanical ventilator session the same vent setting is yesterday with a rate of 24 with a tidal volume of 450 and FiO2 of 40% with a PEEP of 5. The blood gases showed a pH of 7.49 with a pCO2 of 33 and pO2 of 94. Chest x-ray findings are essentially stable. Nevertheless, the patient continues to be in atrial fibrillation with a rapid ventricular response and has been very difficult to control his heart rate. He is currently on a combination of Cardizem drip at 15 mg an hour and addition to amiodarone drip at 0.5 mg per minute and metoprolol at a dose of 100 mg by mouth 3 times a day. He is also on digoxin 0.25 mg on a daily basis. The patient is still having A. fib RVR despite this ongoing treatment for rate control. His heart rate is ranging between 120 and 160, irregular and the patient is also requiring norepinephrine infusion for blood pressure control and the patient is currently on levo fed running at 7 g per minute. Cardiology is on the case and the patient will not be cardioverted based on our ability to provide him any anticoagulants at the time of cardioversion. Hematologically, he is still in acute leukemic crisis. The patient platelet count is at 106. The patient has a 57% blasts. LDH pulses on the rise the patient has a BUN of 50 with a creatinine of 1.0. Uric acid is up to 2.4. Bilirubin is at 0.9, AST slightly elevated at 104. The patient was given Hydrea by hematology oncology at were unable to give him because of our inability to crushed medication. He is on Decadron 5 mg every 6 hours. The patient is afebrile. The patient on IV Zosyn. The bronchioloalveolar lavage was negative. Chest x-ray findings are stable. The neck fluid balance is in order of 34 1 mL positive and the patient is receiving daily Lasix dose of 40 mg IV push. On 09/04/2020, the patient remains intubated on a mechanical ventilator. As stated earlier, the patient was started on systemic therapy with cytarabine and this was started last night. This morning, the patient assist-control mode of ventilation at the rate of 24 with a tidal volume of 500 and FiO2 of 50% and a PEEP of 5. The patient's is sedated with propofol. The patient was having bouts of fever overnight and the patient's had a T-max of 102.2. The patient was given Tylenol. Cultures were sent. Noted the bronchoscopy and the bronchioloalveolar lavage done earlier showed no evidence of any microbial growth. 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 The chest x-ray still showing some pains right infrahilar and more prominent left basilar infiltrate/atelectasis. No new infiltration seen.. The patient remains in atrial fibrillation. Heart rate is still quite tachycardic and the patient c ontinues to be on Cardizem drip at 15mg an hour in addition to metoprolol 100 mg by mouth 3 times a day, digoxin 250 g daily basis and amiodarone that has been switched to oral at a dose of 5 mg by mouth twice a day. The patient is still requiring low-dose norepinephrine infusion for blood pressure support which is running at 0.02 mg per KG per minute. I started the patient IV fluid and the patient was going on systemic chemotherapy and currently is on normal saline at rate of 70 mL an hour. The patient is taking insulin drip at 14 units an hour. He remains on IV Zosyn. Note that the hematologic profile is still quite abnormal. The white cell count is at 66.9. The patient has 46% blasts in the peripheral smear. Platelet counts at 76. The LDH remains elevated at 10,336. Renal function is stable with a BUN of 47 with a creatinine of 0.9. Uric acid level is at 2.6. Calcium level level is at 7.3. On 09/05/2020, the patient is still doing poorly. The patient is completing [facility] chemotherapy regarding the acute AML crisis. Hematologically, the patient continues to have increased level of blasts in his peripheral smear addition to leukocytosis and elevated LDH. The patient is completing a course of cytarabine. Meanwhile, the patient is still sedated on mechanical ventilator. He is on propofol for sedation running at 60 g per KG per minute. I'll be unable to cut down his sedation as the patient becomes severely tachycardic restless and LUAN inhibitor the mechanical ventilator once of sedation. In terms of his cardiac status, heart rate is still tachycardic and in A. fib rhythm. Despite a combination of metoprolol 100 mg 3 times a day, Cardizem 50 mg an ho ur, amiodarone 400 mg twice a day and digoxin to 50 mg on a daily basis, the patient continues to be quite tachycardic. He is on no anticoagulants for now. He was having episodes of fever and the fever workup included a bronchoscopy and the bronchioloalveolar lavage that showed HSV-1 with some candidal elements. For that reason the patient was given a combination of acyclovir, Aguilar in combination with Zosyn as broad-spectrum antibiotic coverage. The patient is off pressors this morning. He is on a assist-control mode at the rate of 24 with a tidal volume of 500 and FiO2 of 40% with a PEEP of 5. Blood gas show pH of 7.46 with a pCO2 of 30-121 oxygen. The patient's chest x-ray shows increased interstitial infiltrates bilaterally which are somewhat stable compared to yesterday, probably slightly worse on the right. He is receiving daily Lasix doses. The fluid balance has been essentially slightly positive in order of +1 L over the past 24 hours. The patient is on insulin drip at 50 units an hour. He is receiving enteral feeding for nutritional support. No other significant events overnight. On 09/06/2020, the patient is still doing poorly. He is completing the chemot herapy. He remains sedated and unable to come off the sedation as the patient becomes quite breathless agitated tachycardic while off sedation. For that reason the patient is on 60 g of propofol infusion. Breath settings are essentially the same with an assist-control mode at the rate of 24 with a tidal volume of 500 and FiO2 of 40% with a PEEP of 5. PH is 7.43 with a pCO2 of 31 pO2 of 87. He is still having episodic low-grade fever. [place] was cultured from the bronchioloalveolar lavage in addition to HSV and the patient was covered with a combination of Zosyn, acyclovir and Eraxis. Repeat cultures be obtained accordingly. Meanwhile, the patient is currently off pressors. A. fib is still active although less tachycardic to prior evaluation. He remains on a combination of metoprolol, amiodarone, Cardizem drip and digoxin. He is receiving enteral feeding for nutritional support with vital high protein at the rate of 20 mL an hour. As mentioned is completing systemic chemotherapy with cytarabine. The white cell count of 32 with a 11 of 7.4. Platelet count is a 75. The patient continues to 47% blasts in the peripheral smear. Correlation profile is decent. The sodium level is up to 148 with a potassium level of 5.2 and a chloride of 123. The BUN is 41 with a creatinine of 1.06. Patient was reevaluated today on 09/07/20, remains in the ICU, intubated and mechanically ventilated his ventilator settings are volume control plus with tidal volume is 500 rate of 24, FiO2 40% and PEEP of 5. ABG showed a pO2 of 91 pCO2 of 30 pH of 7.43. Patient is off propofol this morning to assess mental status, and it seems to be a bit appropriate. He is on Cardizem drip as well as enteral feeding, and his IV fluid is at 75 mL per hour. Patient received 2 units of packed RBC this morning for hemoglobin of 6.4. And that being managed by hematology/oncology on the case. Patient remains on Zyvox, Zosyn, acyclovir, and Eraxis. Patient was intubated on 08/30, and he remains on mechanical ventilation since then. Labs today with abnormal with hemoglobin of 6.4 blasts cells are 57%. Platelets are 52,000. Sodium is 147 potassium 4.2 chloride is 122 BUN is 42 creatinine 0.87. LDH is coming down it is 10,264 today, uric acid is 3.0. Objective - Vital Signs Vital signs: Vital Signs Temp 98.6 F 09/07/20 12:00 Pulse 95 09/07/20 13:00 Resp 24 09/07/20 13:00 BP 93/59 09/07/20 12:00 Pulse Ox 94 L 09/07/20 12:30 Intake & Output 09/06/20 09/07/20 09/07/20 18:59 06:59 18:59 Intake Total 2765.258 2477.623 3011.822 Output Total 2925 1495 1695 Balance -159.742 657.870 4163.822 Weight 107.1 kg 107.1 kg Intake: IV 853 1541 767 0.9 75 0.9@ 75 825 75 Acyclovir Sodium 1,000 mg 500 250 250 In Sodium Chloride 0.9% 250 ml @ 270 mls/hr IVPB Q8HR ANA Rx#:[id number] Linezolid 600 mg In 300 300 Dextrose/Water 1 300ml. bag @ 150 mls/hr IVPB Q12HR ANA Rx#:[id number] Normal Saline Pressure 78 66 42 Bag Piperacillin-Tazobactam 3 200 100 100 .375 gm In Sodium Chloride 0.9% 100 ml @ 25 mls/hr IVPB Q8HR ANA Rx# :[id number] Intake, IV Titration 1381.258 566.623 794.822 Amount ACETAMINOPHEN IV (For NPO 100 ) 1,000 mg In Empty Bag 1 bag @ 400 mls/hr IVPB ONCE ONE Rx#:[id number] Anidulafungin 100 mg In 100 100 Sodium Chloride 0.9% 100 ml @ 84 mls/hr IVPB DAILY [facility] Rx#:[id number] Diltiazem 125 mg In 104.75 247 125 Sodium Chloride 0.9% 100 ml @ 15 MG/HR 15 mls/hr IV .Q8H20M [facility] Rx#: [id number] Insulin Regular 100 unit 62.721 113.305 In Sodium Chloride 0.9% 100 ml @ Per Protocol IV .Q0M ANA Rx#:[id number] Norepinephrine 32 mg In 13.787 7.493 12.441 Sodium Chloride 0.9% 218 ml @ 0.06 MCG/KG/MIN 2. 776 mls/hr IV .Q24H ANA Rx#:[id number] Sodium Chloride 0.45% 1, 825 450 000 ml @ 75 mls/hr IV . [id number] ANA Rx#:[id number] Sodium Chloride 0.9% 1, 75 000 ml @ 75 mls/hr IV . [id number] ANA Rx#:[id number] propofoL 1,000 mg In 100.000 198.825 107.381 Empty Bag 1 bag @ Titrate IV .Q0M ANA Rx#: [id number] Tube Feeding 320 280 180 Blood Product 91 0 1270 Pooled Cryoprecipitate 91 Unit [id number] Rc Irr As1 Unit 310 [id number] Rc Irr As1 Unit 0 310 [id number] Other 120 90 Output: Urine 2925 1495 1695 Other: Voiding Method Indwelling Catheter Indwelling Catheter Indwelling Catheter # Bowel Movements 1 ABP, PAP, CO, CI - Last Documented Arterial Blood Pressure 137/62 - Exam -GENERAL: Revealed a 75-year-old white male on mechanical ventilation, in no distress. Arousable, follows very simple instructions HEENT: PERRLA, EOMI, no icterus, no neck masses, no JVD, orogastric tube and endotracheal tube are intact. CARDIOVASCULAR: Normal S1 and S2, no S3 gallop. PULMONARY: Minimal crackles at the bases, no rhonchi and no wheezes. Symmetrical chest expansion. ABDOMEN: Obese, soft, nontender, no megaly, no rebound, no guarding. MUSCULOSKELETAL: No limitation in range of motion, good muscle tone. No deformities. -EXTREMITIES: No clubbing or cyanosis, mild pitting edema bilaterally. NEUROLOGICAL: Off propofol, patient is arousable, follows very simple instructions. SKIN: No rashes. no petechiae. Psychiatric: Could not be assessed. Patient is on mechanical ventilation. - Labs CBC & Chem 7: 09/07/20 03:30 09/07/20 03:30 Labs: Abnormal Lab Results - Last 24 Hours (Table) 09/06/20 09/06/20 09/06/20 Range/Units 12:30 14:15 15:44 WBC (3.8-10.6) k/uL RBC (4.30-5.90) m/uL Hgb (13.0-17.5) gm/dL Hct (39.0-53.0) % MCV (80.0-100.0) fL MCH (25.0-35.0) pg RDW (11.5-15.5) % Plt Count (150-450) k/uL Blast Cells % % Neutrophils # (Manual) (1.3-7.7) k/uL Lymphocytes # (Manual) (1.0-4.8) k/uL Blast Cells # (Man) (0) k/uL PT (9.0-12.0) sec INR (<1.2) Fibrinogen (200-500) mg/dL D-Dimer (<0.60) mg/L FEU ABG pCO2 (35-45) mmHg ABG HCO3 (21-25) mmol/L Sodium (137-145) mmol/L Chloride (98-107) mmol/L Carbon Dioxide (22-30) mmol/L BUN (9-20) mg/dL Glucose (74-99) mg/dL POC Glucose (mg/dL) 128 H 130 H (75-99) mg/dL Uric Acid (3.5-8.5) mg/dL Calcium (8.4-10.2) mg/dL Phosphorus (2.5-4.5) mg/dL Magnesium (1.6-2.3) mg/dL AST (17-59) U/L Lactate Dehydrogenase (313-618) U/L Total Protein (6.3-8.2) g/dL Albumin (3.5-5.0) g/dL Crossmatch See Detail 09/06/20 09/06/20 09/06/20 Range/Units 17:42 20:04 22:08 WBC (3.8-10.6) k/uL RBC (4.30-5.90) m/uL Hgb (13.0-17.5) gm/dL Hct (39.0-53.0) % MCV (80.0-100.0) fL MCH (25.0-35.0) pg RDW (11.5-15.5) % Plt Count (150-450) k/uL Blast Cells % % Neutrophils # (Manual) (1.3-7.7) k/uL Lymphocytes # (Manual) (1.0-4.8) k/uL Blast Cells # (Man) (0) k/uL PT (9.0-12.0) sec INR (<1.2) Fibrinogen (200-500) mg/dL D-Dimer (<0.60) mg/L FEU ABG pCO2 (35-45) mmHg ABG HCO3 (21-25) mmol/L Sodium (137-145) mmol/L Chloride (98-107) mmol/L Carbon Dioxide (22-30) mmol/L BUN (9-20) mg/dL Glucose (74-99) mg/dL POC Glucose (mg/dL) 155 H 142 H 110 H (75-99) mg/dL Uric Acid (3.5-8.5) mg/dL Calcium (8.4-10.2) mg/dL Phosphorus (2.5-4.5) mg/dL Magnesium (1.6-2.3) mg/dL AST (17-59) U/L Lactate Dehydrogenase (313-618) U/L Total Protein (6.3-8.2) g/dL Albumin (3.5-5.0) g/dL Crossmatch 09/07/20 09/07/20 09/07/20 Range/Units 00:35 01:59 03:30 WBC (3.8-10.6) k/uL RBC (4.30-5.90) m/uL Hgb (13.0-17.5) gm/dL Hct (39.0-53.0) % MCV (80.0-100.0) fL MCH (25.0-35.0) pg RDW (11.5-15.5) % Plt Count (150-450) k/uL Blast Cells % % Neutrophils # (Manual) (1.3-7.7) k/uL Lymphocytes # (Manual) (1.0-4.8) k/uL Blast Cells # (Man) (0) k/uL PT 14.1 H (9.0-12.0) sec INR 1.4 H (<1.2) Fibrinogen 111 L (200-500) mg/dL D-Dimer 34.33 H (<0.60) mg/L FEU ABG pCO2 (35-45) mmHg ABG HCO3 (21-25) mmol/L Sodium (137-145) mmol/L Chloride (98-107) mmol/L Carbon Dioxide (22-30) mmol/L BUN (9-20) mg/dL Glucose (74-99) mg/dL POC Glucose (mg/dL) 205 H 221 H (75-99) mg/dL Uric Acid (3.5-8.5) mg/dL Calcium (8.4-10.2) mg/dL Phosphorus (2.5-4.5) mg/dL Magnesium (1.6-2.3) mg/dL AST (17-59) U/L Lactate Dehydrogenase (313-618) U/L Total Protein (6.3-8.2) g/dL Albumin (3.5-5.0) g/dL Crossmatch 09/07/20 09/07/20 09/07/20 Range/Units 03:30 03:30 05:12 WBC 15.2 H (3.8-10.6) k/uL RBC 1.73 L (4.30-5.90) m/uL Hgb 6.4 L* (13.0-17.5) gm/dL Hct 17.6 L* (39.0-53.0) % MCV 101.4 H (80.0-100.0) fL MCH 37.1 H (25.0-35.0) pg RDW 18.3 H (11.5-15.5) % Plt Count 52 L (150-450) k/uL Blast Cells % 37 H* % Neutrophils # (Manual) 8.80 H (1.3-7.7) k/uL Lymphocytes # (Manual) 0.46 L (1.0-4.8) k/uL Blast Cells # (Man) 5.62 H (0) k/uL PT (9.0-12.0) sec INR (<1.2) Fibrinogen (200-500) mg/dL D-Dimer (<0.60) mg/L FEU ABG pCO2 30 L (35-45) mmHg ABG HCO3 20 L (21-25) mmol/L Sodium 147 H (137-145) mmol/L Chloride 122 H (98-107) mmol/L Carbon Dioxide 20 L (22-30) mmol/L BUN 42 H (9-20) mg/dL Glucose 200 H (74-99) mg/dL POC Glucose (mg/dL) (75-99) mg/dL Uric Acid 3.0 L (3.5-8.5) mg/dL Calcium 7.3 L (8.4-10.2) mg/dL Phosphorus 5.2 H (2.5-4.5) mg/dL Magnesium 2.7 H (1.6-2.3) mg/dL AST 71 H (17-59) U/L Lactate Dehydrogenase 72771 H (313-618) U/L Total Protein 4.8 L (6.3-8.2) g/dL Albumin 2.4 L (3.5-5.0) g/dL Crossmatch 09/07/20 09/07/20 09/07/20 Range/Units 06:04 08:38 10:22 WBC (3.8-10.6) k/uL RBC (4.30-5.90) m/uL Hgb (13.0-17.5) gm/dL Hct (39.0-53.0) % MCV (80.0-100.0) fL MCH (25.0-35.0) pg RDW (11.5-15.5) % Plt Count (150-450) k/uL Blast Cells % % Neutrophils # (Manual) (1.3-7.7) k/uL Lymphocytes # (Manual) (1.0-4.8) k/uL Blast Cells # (Man) (0) k/uL PT (9.0-12.0) sec INR (<1.2) Fibrinogen (200-500) mg/dL D-Dimer (<0.60) mg/L FEU ABG pCO2 (35-45) mmHg ABG HCO3 (21-25) mmol/L Sodium (137-145) mmol/L Chloride (98-107) mmol/L Carbon Dioxide (22-30) mmol/L BUN (9-20) mg/dL Glucose (74-99) mg/dL POC Glucose (mg/dL) 195 H 152 H 145 H (75-99) mg/dL Uric Acid (3.5-8.5) mg/dL Calcium (8.4-10.2) mg/dL Phosphorus (2.5-4.5) mg/dL Magnesium (1.6-2.3) mg/dL AST (17-59) U/L Lactate Dehydrogenase (313-618) U/L Total Protein (6.3-8.2) g/dL Albumin (3.5-5.0) g/dL Crossmatch 09/07/20 Range/Units 13:01 WBC (3.8-10.6) k/uL RBC (4.30-5.90) m/uL Hgb (13.0-17.5) gm/dL Hct (39.0-53.0) % MCV (80.0-100.0) fL MCH (25.0-35.0) pg RDW (11.5-15.5) % Plt Count (150-450) k/uL Blast Cells % % Neutrophils # (Manual) (1.3-7.7) k/uL Lymphocytes # (Manual) (1.0-4.8) k/uL Blast Cells # (Man) (0) k/uL PT (9.0-12.0) sec INR (<1.2) Fibrinogen (200-500) mg/dL D-Dimer (<0.60) mg/L FEU ABG pCO2 (35-45) mmHg ABG HCO3 (21-25) mmol/L Sodium (137-145) mmol/L Chloride (98-107) mmol/L Carbon Dioxide (22-30) mmol/L BUN (9-20) mg/dL Glucose (74-99) mg/dL POC Glucose (mg/dL) 141 H (75-99) mg/dL Uric Acid (3.5-8.5) mg/dL Calcium (8.4-10.2) mg/dL Phosphorus (2.5-4.5) mg/dL Magnesium (1.6-2.3) mg/dL AST (17-59) U/L Lactate Dehydrogenase (313-618) U/L Total Protein (6.3-8.2) g/dL Albumin (3.5-5.0) g/dL Crossmatch Microbiology - Last 24 Hours (Table) 09/04/20 11:11 Blood Culture - Preliminary Blood No Growth after 72 hours 09/06/20 09:15 Blood Culture - Preliminary Blood No Growth after 24 hours 09/06/20 11:16 Gram Stain - Preliminary Sputum Sputum Culture - Preliminary 09/06/20 09:05 Urine Culture - Preliminary Urine,Catheterized 09/04/20 11:11 Gram Stain - Final Sputum Sputum Culture - Final Assessment and Plan Assessment: Impression: Acute hypoxic respiratory failure Acute bilateral pulmonary infiltrates, differential diagnoses includes pneumonia or lung injury from promyelocytic leukemia treatment. Patient is immunocompromised, he is definitely a set up for infection. Tumor lysis syndrome Acute leukemic crisis with elevated level of blasts with anemia and t hrombocytopenia patient is receiving cytarabine chemotherapy. Acute promyelocytic leukemia Type 2 diabetes. Requiring insulin drip. Chronic atrial fibrillation. Dyslipidemia. Acute kidney injury on presentation, improving since admission. History of poliomyelitis as a child. History of psoriasis. History of obstructive sleep apnea syndrome. Benign essential hypertension. Recommendation: Continue ventilatory support. Continue antibiotics and antiviral therapy. Continue present cardiac meds to control his atrial fibrillation. Pressors as needed for hemodynamic support. Continue systemic chemotherapy Transfused with blood and platelets as necessary. Continue enteral feeding. Monitor daily labs for tumor lysis syndrome. LDH remains elevated but uric acid is normal. Continue sedation and continue sedation interruption on a daily basis and assess mental status. Patient is not quite ready for any weaning trials today, however his weaning trials will be assessed daily. Continue to monitor and correct daily electrolytes. Overall prognosis remains definitely poor and guarded, We'll continue to follow. Critical care time is 40 minutes Time with Patient: Greater than 30
[2020-09-07 14:27] LABS: Glucose,Whole Blood 124 mg/dL (75-99)
[2020-09-07] MEDS: NOREPINEPHRINE 32 MG in SODIUM CHLORIDE 0.9% 218 ML IV SCH (16:12)
[2020-09-07 16:37] LABS: Glucose,Whole Blood 135 mg/dL (75-99)
--- NOTE | 2020-09-07 17:07 | PN ---
PROGRESS NOTE DATE OF SERVICE: 09/07/2020 REASON FOR FOLLOWUP: Pneumonia and fever. INTERVAL HISTORY: Patient overall fever pattern has improved. No fever has been recorded since midnight. The patient is hemodynamically stable, not on pressor support. FiO2 is currently stable at 40%. no significant purulent secretion or any diarrhea per the nursing staff. PHYSICAL EXAMINATION: Blood pressure 113/55 with a pulse of 87, temperature 98.1, he is 95% on 40% FiO2. General description is an elderly male, lying in bed in no distress. RESPIRATORY SYSTEM: Unlabored breathing, decreased breath sounds, no wheeze. HEART: S1, S2. Regular rate and rhythm. ABDOMEN: Soft, no tenderness. LABS: Hemoglobin of 6.4, white count 15.2, BUN of 42, creatinine 0.87. Cultures so far pending. DIAGNOSTIC IMPRESSION AND PLAN: Patient with fever and acute respiratory failure, currently on the vent, concern for pneumonia. Patient is currently covered with Zyvox and Zosyn, to continue while waiting for the culture to finalize and monitor clinical course closely. MMODL / IJN: [id number] /
[2020-09-07 18:02] LABS: Glucose,Whole Blood 128 mg/dL (75-99)
--- NOTE | 2020-09-07 19:24 | P.PN ---
Subjective Progress Note Date: 09/07/20 Principal diagnosis: APL - Acute Hypoxic respiratory failure Blasts are 37% today, Platelets 52K, Hemoglobin 6.4. Fibrinogen remains greater than 100, although did receive cryoprecipitate transfusion on 09/06/20. Remains on vent. Objective - Vital Signs Vital signs: Vital Signs Temp 98.5 F 09/07/20 08:37 Pulse 95 09/07/20 10:00 Resp 28 H 09/07/20 10:00 BP 104/56 09/07/20 10:00 Pulse Ox 96 09/07/20 10:00 Intake & Output 09/06/20 09/07/20 09/07/20 18:59 06:59 18:59 Intake Total 2765.258 2477.623 1596.191 Output Total 2925 1495 1295 Balance -159.742 982.623 301.191 Weight 107.1 kg Intake: IV 853 1541 749 0.9 75 0.9@ 75 825 75 Acyclovir Sodium 1,000 mg 500 250 250 In Sodium Chloride 0.9% 250 ml @ 270 mls/hr IVPB Q8HR ANA Rx#:[id number] Linezolid 600 mg In 300 300 Dextrose/Water 1 300ml. bag @ 150 mls/hr IVPB Q12HR ANA Rx#:[id number] Normal Saline Pressure 78 66 24 Bag Piperacillin-Tazobactam 3 200 100 100 .375 gm In Sodium Chloride 0.9% 100 ml @ 25 mls/hr IVPB Q8HR ANA Rx# :[id number] Intake, IV Titration 1381.258 566.623 437.191 Amount ACETAMINOPHEN IV (For NPO 100 ) 1,000 mg In Empty Bag 1 bag @ 400 mls/hr IVPB ONCE ONE Rx#:[id number] Anidulafungin 100 mg In 100 100 Sodium Chloride 0.9% 100 ml @ 84 mls/hr IVPB DAILY ANA Rx#:[id number] Diltiazem 125 mg In 104.75 247 Sodium Chloride 0.9% 100 ml @ 15 MG/HR 15 mls/hr IV .Q8H20M ANA Rx#: [id number] Insulin Regular 100 unit 62.721 113.305 In Sodium Chloride 0.9% 100 ml @ Per Protocol IV .Q0M ANA Rx#:[id number] Norepinephrine 32 mg In 13.787 7.493 12.441 Sodium Chloride 0.9% 218 ml @ 0.06 MCG/KG/MIN 2. 776 mls/hr IV .Q24H ANA Rx#:[id number] Sodium Chloride 0.45% 1, 825 225 000 ml @ 75 mls/hr IV . [id number] ANA Rx#:[id number] Sodium Chloride 0.9% 1, 75 000 ml @ 75 mls/hr IV . [id number] ANA Rx#:[id number] propofoL 1,000 mg In 100.000 198.825 99.750 Empty Bag 1 bag @ Titrate IV .Q0M ANA Rx#: [id number] Tube Feeding 320 280 100 Blood Product 91 0 310 Pooled Cryoprecipitate 91 Unit [id number] Rc Irr As1 Unit 0 [id number] Rc Irr As1 Unit 0 310 [id number] Other 120 90 Output: Urine 2925 1495 1295 Other: Voiding Method Indwelling Catheter Indwelling Catheter # Bowel Movements 1 ABP, PAP, CO, CI - Last Documented Arterial Blood Pressure 120/65 - Exam - Constitutional Constitutional Comment(s): Ventilator ENT:ET tube - Respiratory - Vent, tachypneic Respiratory: bilateral: rales, rhonchi - Cardiovascular Rhythm: irregularly irregular - Gastrointestinal General gastrointestinal: Present: distended, normal bowel sounds, soft - Integumentary Integumentary: Present: normal - Neurologic Neurologic:KARSTEN - Musculoskeletal Musculoskeletal:Atrophy noted to muscles, KARSTEN strength BLE and BUE edema - Psychiatric Psychiatric: KARSTEN - Labs CBC & Chem 7: 09/07/20 03:30 09/07/20 03:30 Labs: Abnormal Lab Results - Last 24 Hours (Table) 09/06/20 09/06/20 09/06/20 Range/Units 12:02 12:30 14:15 WBC (3.8-10.6) k/uL RBC (4.30-5.90) m/uL Hgb (13.0-17.5) gm/dL Hct (39.0-53.0) % MCV (80.0-100.0) fL MCH (25.0-35.0) pg RDW (11.5-15.5) % Plt Count (150-450) k/uL Blast Cells % % Neutrophils # (Manual) (1.3-7.7) k/uL Lymphocytes # (Manual) (1.0-4.8) k/uL Blast Cells # (Man) (0) k/uL PT (9.0-12.0) sec INR (<1.2) Fibrinogen (200-500) mg/dL D-Dimer (<0.60) mg/L FEU ABG pCO2 (35-45) mmHg ABG HCO3 (21-25) mmol/L Sodium (137-145) mmol/L Chloride (98-107) mmol/L Carbon Dioxide (22-30) mmol/L BUN (9-20) mg/dL Glucose (74-99) mg/dL POC Glucose (mg/dL) 141 H 128 H (75-99) mg/dL Uric Acid (3.5-8.5) mg/dL Calcium (8.4-10.2) mg/dL Phosphorus (2.5-4.5) mg/dL Magnesium (1.6-2.3) mg/dL AST (17-59) U/L Lactate Dehydrogenase (313-618) U/L Total Protein (6.3-8.2) g/dL Albumin (3.5-5.0) g/dL Crossmatch See Detail 09/06/20 09/06/20 09/06/20 Range/Units 15:44 17:42 20:04 WBC (3.8-10.6) k/uL RBC (4.30-5.90) m/uL Hgb (13.0-17.5) gm/dL Hct (39.0-53.0) % MCV (80.0-100.0) fL MCH (25.0-35.0) pg RDW (11.5-15.5) % Plt Count (150-450) k/uL Blast Cells % % Neutrophils # (Manual) (1.3-7.7) k/uL Lymphocytes # (Manual) (1.0-4.8) k/uL Blast Cells # (Man) (0) k/uL PT (9.0-12.0) sec INR (<1.2) Fibrinogen (200-500) mg/dL D-Dimer (<0.60) mg/L FEU ABG pCO2 (35-45) mmHg ABG HCO3 (21-25) mmol/L Sodium (137-145) mmol/L Chloride (98-107) mmol/L Carbon Dioxide (22-30) mmol/L BUN (9-20) mg/dL Glucose (74-99) mg/dL POC Glucose (mg/dL) 130 H 155 H 142 H (75-99) mg/dL Uric Acid (3.5-8.5) mg/dL Calcium (8.4-10.2) mg/dL Phosphorus (2.5-4.5) mg/dL Magnesium (1.6-2.3) mg/dL AST (17-59) U/L Lactate Dehydrogenase (313-618) U/L Total Protein (6.3-8.2) g/dL Albumin (3.5-5.0) g/dL Crossmatch 09/06/20 09/07/20 09/07/20 Range/Units 22:08 00:35 01:59 WBC (3.8-10.6) k/uL RBC (4.30-5.90) m/uL Hgb (13.0-17.5) gm/dL Hct (39.0-53.0) % MCV (80.0-100.0) fL MCH (25.0-35.0) pg RDW (11.5-15.5) % Plt Count (150-450) k/uL Blast Cells % % Neutrophils # (Manual) (1.3-7.7) k/uL Lymphocytes # (Manual) (1.0-4.8) k/uL Blast Cells # (Man) (0) k/uL PT (9.0-12.0) sec INR (<1.2) Fibrinogen (200-500) mg/dL D-Dimer (<0.60) mg/L FEU ABG pCO2 (35-45) mmHg ABG HCO3 (21-25) mmol/L Sodium (137-145) mmol/L Chloride (98-107) mmol/L Carbon Dioxide (22-30) mmol/L BUN (9-20) mg/dL Glucose (74-99) mg/dL POC Glucose (mg/dL) 110 H 205 H 221 H (75-99) mg/dL Uric Acid (3.5-8.5) mg/dL Calcium (8.4-10.2) mg/dL Phosphorus (2.5-4.5) mg/dL Magnesium (1.6-2.3) mg/dL AST (17-59) U/L Lactate Dehydrogenase (313-618) U/L Total Protein (6.3-8.2) g/dL Albumin (3.5-5.0) g/dL Crossmatch 09/07/20 09/07/20 09/07/20 Range/Units 03:30 03:30 03:30 WBC 15.2 H (3.8-10.6) k/uL RBC 1.73 L (4.30-5.90) m/uL Hgb 6.4 L* (13.0-17.5) gm/dL Hct 17.6 L* (39.0-53.0) % MCV 101.4 H (80.0-100.0) fL MCH 37.1 H (25.0-35.0) pg RDW 18.3 H (11.5-15.5) % Plt Count 52 L (150-450) k/uL Blast Cells % 37 H* % Neutrophils # (Manual) 8.80 H (1.3-7.7) k/uL Lymphocytes # (Manual) 0.46 L (1.0-4.8) k/uL Blast Cells # (Man) 5.62 H (0) k/uL PT 14.1 H (9.0-12.0) sec INR 1.4 H (<1.2) Fibrinogen 111 L (200-500) mg/dL D-Dimer 34.33 H (<0.60) mg/L FEU ABG pCO2 (35-45) mmHg ABG HCO3 (21-25) mmol/L Sodium 147 H (137-145) mmol/L Chloride 122 H (98-107) mmol/L Carbon Dioxide 20 L (22-30) mmol/L BUN 42 H (9-20) mg/dL Glucose 200 H (74-99) mg/dL POC Glucose (mg/dL) (75-99) mg/dL Uric Acid 3.0 L (3.5-8.5) mg/dL Calcium 7.3 L (8.4-10.2) mg/dL Phosphorus 5.2 H (2.5-4.5) mg/dL Magnesium 2.7 H (1.6-2.3) mg/dL AST 71 H (17-59) U/L Lactate Dehydrogenase 88481 H (313-618) U/L Total Protein 4.8 L (6.3-8.2) g/dL Albumin 2.4 L (3.5-5.0) g/dL Crossmatch 09/07/20 09/07/20 09/07/20 Range/Units 05:12 06:04 08:38 WBC (3.8-10.6) k/uL RBC (4.30-5.90) m/uL Hgb (13.0-17.5) gm/dL Hct (39.0-53.0) % MCV (80.0-100.0) fL MCH (25.0-35.0) pg RDW (11.5-15.5) % Plt Count (150-450) k/uL Blast Cells % % Neutrophils # (Manual) (1.3-7.7) k/uL Lymphocytes # (Manual) (1.0-4.8) k/uL Blast Cells # (Man) (0) k/uL PT (9.0-12.0) sec INR (<1.2) Fibrinogen (200-500) mg/dL D-Dimer (<0.60) mg/L FEU ABG pCO2 30 L (35-45) mmHg ABG HCO3 20 L (21-25) mmol/L Sodium (137-145) mmol/L Chloride (98-107) mmol/L Carbon Dioxide (22-30) mmol/L BUN (9-20) mg/dL Glucose (74-99) mg/dL POC Glucose (mg/dL) 195 H 152 H (75-99) mg/dL Uric Acid (3.5-8.5) mg/dL Calcium (8.4-10.2) mg/dL Phosphorus (2.5-4.5) mg/dL Magnesium (1.6-2.3) mg/dL AST (17-59) U/L Lactate Dehydrogenase (313-618) U/L Total Protein (6.3-8.2) g/dL Albumin (3.5-5.0) g/dL Crossmatch 09/07/20 Range/Units 10:22 WBC (3.8-10.6) k/uL RBC (4.30-5.90) m/uL Hgb (13.0-17.5) gm/dL Hct (39.0-53.0) % MCV (80.0-100.0) fL MCH (25.0-35.0) pg RDW (11.5-15.5) % Plt Count (150-450) k/uL Blast Cells % % Neutrophils # (Manual) (1.3-7.7) k/uL Lymphocytes # (Manual) (1.0-4.8) k/uL Blast Cells # (Man) (0) k/uL PT (9.0-12.0) sec INR (<1.2) Fibrinogen (200-500) mg/dL D-Dimer (<0.60) mg/L FEU ABG pCO2 (35-45) mmHg ABG HCO3 (21-25) mmol/L Sodium (137-145) mmol/L Chloride (98-107) mmol/L Carbon Dioxide (22-30) mmol/L BUN (9-20) mg/dL Glucose (74-99) mg/dL POC Glucose (mg/dL) 145 H (75-99) mg/dL Uric Acid (3.5-8.5) mg/dL Calcium (8.4-10.2) mg/dL Phosphorus (2.5-4.5) mg/dL Magnesium (1.6-2.3) mg/dL AST (17-59) U/L Lactate Dehydrogenase (313-618) U/L Total Protein (6.3-8.2) g/dL Albumin (3.5-5.0) g/dL Crossmatch Microbiology - Last 24 Hours (Table) 09/06/20 11:16 Gram Stain - Preliminary Sputum Sputum Culture - Preliminary 09/06/20 09:05 Urine Culture - Preliminary Urine,Catheterized 09/04/20 11:11 Gram Stain - Final Sputum Sputum Culture - Final 09/04/20 11:11 Blood Culture - Preliminary Blood No Growth after 48 hours Assessment and Plan Plan: Assessment and Recommendations: 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 Unfort worsened to 56% on 09/02/20 and today 59% on 09/03/20. 09/07/20 = 40% Unable to administer hydrea dosage through feeding tube while on ventilator therefore will order Cyatarbine 100mg/m2 iv x3 days as cytoreduction treatment. 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 - Status post second treatment with rasburicase on 08/30 - Uric Acid improved today - Monitor daily Tumor Lysis Labs (CMP, LDH, Uric acid, Mag, and Phos) - Monitor Daily CBC with differential and Coags (PT, PTT, INR) Low Grade DIC - - Transfuse unit of Cryoprecipitate if Fibrinogen less than 100 - MOnitor for any s/s bleeding especially oozing from lines or Bowels or Vazquez dder - Transfuse platelets if less than 50K and bleeding or if coagulopathy Transfuse FFP in picture of bleeding or oozing - Cry given on 09/06/20, fibrinogen 98 Cytokine Storm/Differentiation Syndrome Febrile - Coverage with abx, anti-fungal, anti-viral - ID is following - Cultures negative to date Acute Hypoxic Respiratory Failure: Secondary to differentiation syndrome plus or minus sepsis - Remains ICU on Mechanical Ventilator (08/30/2020) - Acute development of diffuse bilateral pulmonary infiltrates - Differentials include pneumonia/CHF (not consistent with CHF - felt to be differential syndrome) versus noncardiogenic pulmonary edema 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 - Daily CBC, CMP, Fibrinogen, PTT, PT, INR, Dimer, Phos, Mag, LDH - Transfuse One unit Irradiated PRBC today - Continue on 20mg IV dex (in 2-3 doses) daily - Completing Cytarabine for cytokine reduction (Day 3 of 3) on 09/07/20 - Discussed with Nursing and patients daughter at bedside Physician Attest: I have completed the full history and physical and agree with above dictation, dictated as a scribe
[2020-09-07 20:30] LABS: Glucose,Whole Blood 149 mg/dL (75-99)
[2020-09-07] MEDS: ATORVASTATIN 10 MG TAB PO SCH (20:46)
--- NOTE | 2020-09-07 20:58 | P.PN ---
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 HE was treated with Zosyn and eraxis, pulmonary/critical care team on the case and then following the patient closely, as well as hematology and oncology team and he is receiving CPR pain with close monitoring of hematologic parameters. Also he is afebrile with RVR needing Cardizem drip, amiodarone and digoxin and beta barbara, cardiology on the case. Also he is on steroids. Carotid fever low-grade temperature today. He is also on insulin drip and blood pressure is low normal. 09/06/2020 Patient remains in the ICU intubated and sedated. Patient still spiking fever up to 1 or 2 today, could be due to sepsis versus his acute leukemic crisis. Infectious and hematology/oncology team on the case, Zosyn has been added to his antibiotic regimen by ID team, continue with acyclovir, Zyvox and Eraxis. Also oncology team continue with chemotherapy cytrarbine , while his blasts increased today to 47% compared to 30% yesterday also his WBC increased to 27 up to 32 today today. His platelets are 70 5K and hemoglobin stable at 7.4. Pulmonary on the team and they are considering a sedation holiday tomorrow Cardiology on the team and he still on Cardizem drip on the top of his beta barbara, digoxin and amiodarone, his rate is controlled, patient is not a candidate for anticoagulation due to his blood disease and Also on insulin drip and his sugars controlled. 09/07/2020 Patient remains in the ICU, intubated on mechanical ventilation and on critical condition, still receiving several drips including insulin drip, Cardizem drip and small dose of norepinephrine. Still on broad-spectrum antibiotics of Zosyn and Zyvox and is followed by several consultants He has bicytopenia with hemoglobin 6.4 and platelets 52, WBC is trending down slightly today to 15.2 K. He still have elevated blasts 37% but there are improvement. Patient was getting chemotherapy with cytarabine as per oncology and hematology team. Stepdaughter at bedside and I discussed the case with her and she understands the plan of care and the guarded prognosis Prognosis remains guarded Review of systems: N/a Active Medications Generic Name Dose Route Start Last Admin Trade Name Freq PRN Reason Stop Dose Admin Acetaminophen 500 mg 09/03/20 18:58 09/06/20 08:15 Acetaminophen Tab 500 Mg Tab PO 500 mg Q4HR PRN Administration Fever and/ or Pain Hydrocodone Bitart/Acetaminophen 1 each 08/24/20 20:04 09/03/20 12:38 Hydrocodone/Apap 10-325mg 1 Each Tab PO 1 each QID PRN Administration Pain Al Hydroxide/Mg Hydroxide 30 ml 08/25/20 21:43 08/29/20 02:27 Mag Hydrox/Al Hydrox/Simeth 30 Ml Cup PO 30 ml Q4HR PRN Administration GI Upset Amiodarone HCl 400 mg 09/01/20 21:00 09/07/20 20:46 Amiodarone 200 Mg Tab PO 09/08/20 11:00 400 mg BID ANA Administration Amiodarone HCl 200 mg 09/08/20 21:00 Amiodarone 200 Mg Tab PO BID ANA Atorvastatin Calcium 10 mg 08/24/20 21:00 09/07/20 20:46 Atorvastatin 10 Mg Tab PO 10 mg HS ANA Administration Chlorhexidine Gluconate 15 ml 08/30/20 21:00 09/07/20 20:53 Chlorhexidine Gluconate 15 Ml Cup MUCOUS MEM 15 ml BID ANA Administration Dexamethasone Sodium Phosphate 5 mg 08/30/20 14:49 09/07/20 17:29 Dexamethasone Sod Phosphate 4 Mg/Ml 1 Ml Vial IV 5 mg Q6HR ANA Administration Digoxin 250 mcg 09/03/20 09:00 09/07/20 08:35 Digoxin 250 Mcg Tab PO 250 mcg DAILY ANA Administration Furosemide 40 mg 09/01/20 09:00 09/07/20 08:34 Furosemide 10 Mg/Ml 4 Ml Vial IV 40 mg DAILY ANA Administration Gabapentin 100 mg 08/24/20 22:00 09/07/20 20:46 Gabapentin 100 Mg Cap PO 100 mg TID ANA Administration Diltiazem HCl 125 mg/ Sodium 125 mls @ 15 mls/hr 08/29/20 00:30 09/07/20 20:55 Chloride IV 15 mg/hr .Q8H20M ANA 15 mls/hr Administration 15 MG/HR Propofol 1,000 mg/ IV Solution 100 mls @ 0 mls/hr 08/30/20 20:20 09/07/20 20:55 IV 25 mcg/kg/min .Q0M ANA 16.065 mls/hr Administration Protocol Titrate Insulin Human Regular 100 unit 101 mls @ 0 mls/hr 08/31/20 09:00 09/07/20 14:34 / Sodium Chloride IV 9 units/hr .Q0M ANA 9.09 mls/hr Administration Protocol Per Protocol Norepinephrine Bitartrate 32 250 mls @ 2.776 mls/hr 08/31/20 15:30 09/07/20 16:12 mg/ Sodium Chloride IV Not Given .Q24H ANA Protocol 0.06 MCG/KG/MIN Piperacillin Sod/Tazobactam 100 mls @ 25 mls/hr 09/03/20 16:00 09/07/20 16:26 Sod 3.375 gm/ Sodium Chloride IVPB 25 mls/hr Q8HR ANA Administration Acyclovir Sodium 1,000 mg/ 270 mls @ 270 mls/hr 09/04/20 16:00 09/07/20 17:29 Sodium Chloride IVPB 270 mls/hr Q8HR ANA Administration Anidulafungin 100 mg/ Sodium 100 mls @ 84 mls/hr 09/06/20 09:00 09/07/20 11:10 Chloride IVPB 84 mls/hr DAILY ANA Administration Sodium Chloride 1,000 mls @ 75 mls/hr 09/06/20 08:45 09/07/20 12:58 Saline 0.45% IV 75 mls/hr .[id number] ANA Administration Linezolid 600 mg/ IV Solution 300 mls @ 150 mls/hr 09/06/20 21:30 09/07/20 20:53 IVPB 150 mls/hr Q12HR ANA Administration Protocol Insulin Human Regular 9.9 unit 08/31/20 10:25 Insulin Regular Bolus (From Drip Bag) 0.1 unit/kg (9.9 unit) 09/30/20 21:00 IV ONCE PRN Blood Sugar - High Magnesium Oxide 400 mg 08/28/20 09:00 09/07/20 08:35 Magnesium Oxide 400 Mg Tab PO Not Given DAILY ANA Metoprolol Tartrate 100 mg 08/29/20 16:00 09/07/20 20:45 Metoprolol Tartrate 50 Mg Tab PO 100 mg TID ANA Administration Miscellaneous Information 1 each 08/24/20 20:19 Potassium Replacement Protocol 1 Each Mis MISCELLANE DAILY PRN Per Protocol Protocol Miscellaneous Information 1 each 08/24/20 20:20 Magnesium Replacement Protocol 1 Each Mis MISCELLANE DAILY PRN Per Protocol Protocol Pantoprazole Sodium 40 mg 08/31/20 10:45 09/07/20 20:54 Pantoprazole 40 Mg/10 Ml Vial IVP 40 mg BID ANA Administration Potassium Chloride 20 meq 08/28/20 09:00 09/07/20 20:54 Potassium Chloride Er 20 Meq Tab.Er PO 20 meq BID ANA Administration Senna 8.6 mg 09/03/20 21:00 09/07/20 08:35 Sennosides 8.6 Mg Tab PO Not Given DAILY ANA Tamsulosin HCl 0.4 mg 08/24/20 21:00 09/07/20 20:54 Tamsulosin 0.4 Mg Cap.Er.24h PO 0.4 mg BID ANA Administration Objective - Vital Signs Vital signs: Vital Signs Temp 99.1 F 09/07/20 16:30 Pulse 81 09/07/20 18:00 Resp 24 09/07/20 18:00 BP 105/65 09/07/20 18:00 Pulse Ox 94 L 09/07/20 18:00 Intake & Output 09/06/20 09/07/20 09/07/20 18:59 06:59 18:59 Intake Total 2765.258 2477.623 3933.033 Output Total 2925 1495 1970 Balance -159.742 388.171 4632.033 Weight 107.1 kg 107.1 kg Intake: IV 853 1541 1141 0.9 75 0.9@ 75 825 75 Acyclovir Sodium 1,000 mg 500 250 500 In Sodium Chloride 0.9% 250 ml @ 270 mls/hr IVPB Q8HR ANA Rx#:[id number] Linezolid 600 mg In 300 300 Dextrose/Water 1 300ml. bag @ 150 mls/hr IVPB Q12HR ANA Rx#:[id number] Normal Saline Pressure 78 66 66 Bag Piperacillin-Tazobactam 3 200 100 200 .375 gm In Sodium Chloride 0.9% 100 ml @ 25 mls/hr IVPB Q8HR [facility] Rx# :[id number] Intake, IV Titration 1381.258 540.393 4913.033 Amount ACETAMINOPHEN IV (For NPO 100 ) 1,000 mg In Empty Bag 1 bag @ 400 mls/hr IVPB ONCE ONE Rx#:[id number] Anidulafungin 100 mg In 100 100 Sodium Chloride 0.9% 100 ml @ 84 mls/hr IVPB DAILY ANA Rx#:[id number] Diltiazem 125 mg In 104.75 247 125 Sodium Chloride 0.9% 100 ml @ 15 MG/HR 15 mls/hr IV .Q8H20M [facility] Rx#: [id number] Insulin Regular 100 unit 62.721 113.305 101 In Sodium Chloride 0.9% 100 ml @ Per Protocol IV .Q0M [facility] Rx#:[id number] Norepinephrine 32 mg In 13.787 7.493 12.441 Sodium Chloride 0.9% 218 ml @ 0.06 MCG/KG/MIN 2. 776 mls/hr IV .Q24H ANA Rx#:[id number] Sodium Chloride 0.45% 1, 825 750 000 ml @ 75 mls/hr IV . [id number] [facility] Rx#:[id number] Sodium Chloride 0.9% 1, 75 000 ml @ 75 mls/hr IV . [id number] [facility] Rx#:[id number] propofoL 1,000 mg In 100.000 198.825 159.592 Empty Bag 1 bag @ Titrate IV .Q0M [facility] Rx#: [id number] Tube Feeding 320 280 274 Blood Product 91 0 1270 Pooled Cryoprecipitate 91 Unit [id number] Rc Irr As1 Unit 310 [id number] Rc Irr As1 Unit 0 310 [id number] Other 120 90 Output: Urine 2925 1495 1970 Other: Voiding Method Indwelling Catheter Indwelling Catheter Indwelling Catheter # Bowel Movements 1 ABP, PAP, CO, CI - Last Documented Arterial Blood Pressure 112/52 - Exam -GENERAL: The patient is intubated and sedated HEENT: Pupils are round and equally reacting to light. EOMI. No scleral icterus. No conjunctival pallor. Normocephalic, atraumatic. No pharyngeal erythema. No thyromegaly. CARDIOVASCULAR: S1 and S2 present. No murmurs, rubs, or gallops. PULMONARY: Chest is clear to auscultation, no wheezing or crackles. ABDOMEN: Soft, nontender, nondistended, normoactive bowel sounds. No palpable organomegaly. MUSCULOSKELETAL: No joint swelling or deformity. -EXTREMITIES: No cyanosis, clubbing,. Mild bilateral pitting pedal edema. NEUROLOGICAL: Gross neurological examination did not reveal any focal deficits. SKIN: No rashes. no petechiae. - Labs CBC & Chem 7: 09/07/20 03:30 09/07/20 03:30 Labs: Abnormal Lab Results - Last 24 Hours (Table) 09/06/20 09/06/20 09/06/20 Range/Units 12:30 20:04 22:08 WBC (3.8-10.6) k/uL RBC (4.30-5.90) m/uL Hgb (13.0-17.5) gm/dL Hct (39.0-53.0) % MCV (80.0-100.0) fL MCH (25.0-35.0) pg RDW (11.5-15.5) % Plt Count (150-450) k/uL Blast Cells % % Neutrophils # (Manual) (1.3-7.7) k/uL Lymphocytes # (Manual) (1.0-4.8) k/uL Blast Cells # (Man) (0) k/uL PT (9.0-12.0) sec INR (<1.2) Fibrinogen (200-500) mg/dL D-Dimer (<0.60) mg/L FEU ABG pCO2 (35-45) mmHg ABG HCO3 (21-25) mmol/L Sodium (137-145) mmol/L Chloride (98-107) mmol/L Carbon Dioxide (22-30) mmol/L BUN (9-20) mg/dL Glucose (74-99) mg/dL POC Glucose (mg/dL) 142 H 110 H (75-99) mg/dL Uric Acid (3.5-8.5) mg/dL Calcium (8.4-10.2) mg/dL Phosphorus (2.5-4.5) mg/dL Magnesium (1.6-2.3) mg/dL AST (17-59) U/L Lactate Dehydrogenase (313-618) U/L Total Protein (6.3-8.2) g/dL Albumin (3.5-5.0) g/dL Crossmatch See Detail 09/07/20 09/07/20 09/07/20 Range/Units 00:35 01:59 03:30 WBC (3.8-10.6) k/uL RBC (4.30-5.90) m/uL Hgb (13.0-17.5) gm/dL Hct (39.0-53.0) % MCV (80.0-100.0) fL MCH (25.0-35.0) pg RDW (11.5-15.5) % Plt Count (150-450) k/uL Blast Cells % % Neutrophils # (Manual) (1.3-7.7) k/uL Lymphocytes # (Manual) (1.0-4.8) k/uL Blast Cells # (Man) (0) k/uL PT 14.1 H (9.0-12.0) sec INR 1.4 H (<1.2) Fibrinogen 111 L (200-500) mg/dL D-Dimer 34.33 H (<0.60) mg/L FEU ABG pCO2 (35-45) mmHg ABG HCO3 (21-25) mmol/L Sodium (137-145) mmol/L Chloride (98-107) mmol/L Carbon Dioxide (22-30) mmol/L BUN (9-20) mg/dL Glucose (74-99) mg/dL POC Glucose (mg/dL) 205 H 221 H (75-99) mg/dL Uric Acid (3.5-8.5) mg/dL Calcium (8.4-10.2) mg/dL Phosphorus (2.5-4.5) mg/dL Magnesium (1.6-2.3) mg/dL AST (17-59) U/L Lactate Dehydrogenase (313-618) U/L Total Protein (6.3-8.2) g/dL Albumin (3.5-5.0) g/dL Crossmatch 09/07/20 09/07/20 09/07/20 Range/Units 03:30 03:30 05:12 WBC 15.2 H (3.8-10.6) k/uL RBC 1.73 L (4.30-5.90) m/uL Hgb 6.4 L* (13.0-17.5) gm/dL Hct 17.6 L* (39.0-53.0) % MCV 101.4 H (80.0-100.0) fL MCH 37.1 H (25.0-35.0) pg RDW 18.3 H (11.5-15.5) % Plt Count 52 L (150-450) k/uL Blast Cells % 37 H* % Neutrophils # (Manual) 8.80 H (1.3-7.7) k/uL Lymphocytes # (Manual) 0.46 L (1.0-4.8) k/uL Blast Cells # (Man) 5.62 H (0) k/uL PT (9.0-12.0) sec INR (<1.2) Fibrinogen (200-500) mg/dL D-Dimer (<0.60) mg/L FEU ABG pCO2 30 L (35-45) mmHg ABG HCO3 20 L (21-25) mmol/L Sodium 147 H (137-145) mmol/L Chloride 122 H (98-107) mmol/L Carbon Dioxide 20 L (22-30) mmol/L BUN 42 H (9-20) mg/dL Glucose 200 H (74-99) mg/dL POC Glucose (mg/dL) (75-99) mg/dL Uric Acid 3.0 L (3.5-8.5) mg/dL Calcium 7.3 L (8.4-10.2) mg/dL Phosphorus 5.2 H (2.5-4.5) mg/dL Magnesium 2.7 H (1.6-2.3) mg/dL AST 71 H (17-59) U/L Lactate Dehydrogenase 06456 H (313-618) U/L Total Protein 4.8 L (6.3-8.2) g/dL Albumin 2.4 L (3.5-5.0) g/dL Crossmatch 09/07/20 09/07/20 09/07/20 Range/Units 06:04 08:38 10:22 WBC (3.8-10.6) k/uL RBC (4.30-5.90) m/uL Hgb (13.0-17.5) gm/dL Hct (39.0-53.0) % MCV (80.0-100.0) fL MCH (25.0-35.0) pg RDW (11.5-15.5) % Plt Count (150-450) k/uL Blast Cells % % Neutrophils # (Manual) (1.3-7.7) k/uL Lymphocytes # (Manual) (1.0-4.8) k/uL Blast Cells # (Man) (0) k/uL PT (9.0-12.0) sec INR (<1.2) Fibrinogen (200-500) mg/dL D-Dimer (<0.60) mg/L FEU ABG pCO2 (35-45) mmHg ABG HCO3 (21-25) mmol/L Sodium (137-145) mmol/L Chloride (98-107) mmol/L Carbon Dioxide (22-30) mmol/L BUN (9-20) mg/dL Glucose (74-99) mg/dL POC Glucose (mg/dL) 195 H 152 H 145 H (75-99) mg/dL Uric Acid (3.5-8.5) mg/dL Calcium (8.4-10.2) mg/dL Phosphorus (2.5-4.5) mg/dL Magnesium (1.6-2.3) mg/dL AST (17-59) U/L Lactate Dehydrogenase (313-618) U/L Total Protein (6.3-8.2) g/dL Albumin (3.5-5.0) g/dL Crossmatch 09/07/20 09/07/20 09/07/20 Range/Units 13:01 14:25 16:36 WBC (3.8-10.6) k/uL RBC (4.30-5.90) m/uL Hgb (13.0-17.5) gm/dL Hct (39.0-53.0) % MCV (80.0-100.0) fL MCH (25.0-35.0) pg RDW (11.5-15.5) % Plt Count (150-450) k/uL Blast Cells % % Neutrophils # (Manual) (1.3-7.7) k/uL Lymphocytes # (Manual) (1.0-4.8) k/uL Blast Cells # (Man) (0) k/uL PT (9.0-12.0) sec INR (<1.2) Fibrinogen (200-500) mg/dL D-Dimer (<0.60) mg/L FEU ABG pCO2 (35-45) mmHg ABG HCO3 (21-25) mmol/L Sodium (137-145) mmol/L Chloride (98-107) mmol/L Carbon Dioxide (22-30) mmol/L BUN (9-20) mg/dL Glucose (74-99) mg/dL POC Glucose (mg/dL) 141 H 124 H 135 H (75-99) mg/dL Uric Acid (3.5-8.5) mg/dL Calcium (8.4-10.2) mg/dL Phosphorus (2.5-4.5) mg/dL Magnesium (1.6-2.3) mg/dL AST (17-59) U/L Lactate Dehydrogenase (313-618) U/L Total Protein (6.3-8.2) g/dL Albumin (3.5-5.0) g/dL Crossmatch 09/07/20 Range/Units 18:01 WBC (3.8-10.6) k/uL RBC (4.30-5.90) m/uL Hgb (13.0-17.5) gm/dL Hct (39.0-53.0) % MCV (80.0-100.0) fL MCH (25.0-35.0) pg RDW (11.5-15.5) % Plt Count (150-450) k/uL Blast Cells % % Neutrophils # (Manual) (1.3-7.7) k/uL Lymphocytes # (Manual) (1.0-4.8) k/uL Blast Cells # (Man) (0) k/uL PT (9.0-12.0) sec INR (<1.2) Fibrinogen (200-500) mg/dL D-Dimer (<0.60) mg/L FEU ABG pCO2 (35-45) mmHg ABG HCO3 (21-25) mmol/L Sodium (137-145) mmol/L Chloride (98-107) mmol/L Carbon Dioxide (22-30) mmol/L BUN (9-20) mg/dL Glucose (74-99) mg/dL POC Glucose (mg/dL) 128 H (75-99) mg/dL Uric Acid (3.5-8.5) mg/dL Calcium (8.4-10.2) mg/dL Phosphorus (2.5-4.5) mg/dL Magnesium (1.6-2.3) mg/dL AST (17-59) U/L Lactate Dehydrogenase (313-618) U/L Total Protein (6.3-8.2) g/dL Albumin (3.5-5.0) g/dL Crossmatch Microbiology - Last 24 Hours (Table) 09/06/20 09:05 Urine Culture - Final Urine,Catheterized 09/04/20 11:11 Blood Culture - Preliminary Blood No Growth after 72 hours 09/06/20 09:15 Blood Culture - Preliminary Blood No Growth after 24 hours 09/06/20 11:16 Gram Stain - Preliminary Sputum Sputum Culture - Preliminary Assessment and Plan Assessment: Acute lung injury secondary to a AML treatment regimens Sepsis, fever with leukocytosis, and no source of infection, possible resp iratory 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 Continue with antibiotics as per infectious disease recommendation, continue with amiodarone, digoxin, Lopressor and Cardizem as per cardiology team. Pulmonary team are following the case closely for his management of his ventilation. Also patient on chemotherapy as per oncology team Labs and medication were reviewed.. Continue same treatment. Continue with symptomatic treatment. Resume home medication. Monitor lytes and vitals. DVT and GI prophylaxis. Further recommendations of the clinical course of the patient DVT prophylaxis: Not to calculation for thrombocytopenia heparin GI Prophylaxis: Pepcid or PPI Prognosis is guarded
[2020-09-07 23:23] LABS: Glucose,Whole Blood 207 mg/dL (75-99)
[2020-09-07 23:26] LABS: Glucose,Whole Blood 204 mg/dL (75-99)
[2020-09-08] MEDS: ACYCLOVIR SODIUM 1,000 MG in SODIUM CHLORIDE 0.9% 250 ML IVPB SCH ×4 (00:12→23:59)
[2020-09-08] MEDS: DEXAMETHASONE SOD PHOSPHATE 4 MG/ML 1 ML VIAL IV SCH ×5 (00:12→23:59)
[2020-09-08] MEDS: PIPERACILLIN-TAZOBACTAM 3.375 GM in SODIUM CHLORIDE 0.9% 100 ML IVPB SCH ×4 (00:12→23:59)
[2020-09-08] MEDS: SODIUM CHLORIDE 0.45% 1,000 ML IV SCH ×2 (00:21→14:09)
[2020-09-08 00:49] LABS: Glucose,Whole Blood 184 mg/dL (75-99)
[2020-09-08 02:08] LABS: Glucose,Whole Blood 164 mg/dL (75-99)
[2020-09-08] MEDS: INSULIN REGULAR 100 UNIT in SODIUM CHLORIDE 0.9% 100 ML IV SCH ×2 (04:06→13:17)
[2020-09-08 04:07] LABS: Glucose,Whole Blood 156 mg/dL (75-99)
[2020-09-08 04:18] LABS: Anisocytosis Slight; HCT 24.8 % (39.0-53.0); MCH 33.2 pg (25.0-35.0); MCHC 36.4 g/dL (31.0-37.0); MCV 91.4 fL (80.0-100.0); Poikilocytosis Slight; RBC 2.72 m/uL (4.30-5.90); RDW 19.8 % (11.5-15.5); WBC 11.8 k/uL (3.8-10.6)
[2020-09-08 04:31] LABS: ALT 19 U/L (4-49); AST 45 U/L (17-59); African American GFR (CKD) >90 (>60 ml/min/1.73 sqM); Albumin 2.3 g/dL (3.5-5.0); Alkaline Phosphatase 48 U/L (38-126); Anion Gap 3 mmol/L; Blood Urea Nitrogen 43 mg/dL (9-20); Calcium 7.5 mg/dL (8.4-10.2); Carbon Dioxide 21 mmol/L (22-30); Chloride 121 mmol/L (98-107); Glucose 153 mg/dL (74-99); Magnesium 2.6 mg/dL (1.6-2.3); Non-African American GFR(CKD) 80 (>60 ml/min/1.73 sqM); Phosphorus 4.5 mg/dL (2.5-4.5); Potassium 4.1 mmol/L (3.5-5.1); Sodium 145 mmol/L (137-145); Total Bilirubin 0.9 mg/dL (0.2-1.3); Total Protein 4.6 g/dL (6.3-8.2); Uric Acid 2.8 mg/dL (3.5-8.5)
[2020-09-08 04:34] LABS: Platelet Count 35 k/uL (150-450)
[2020-09-08 04:41] LABS: LDH 6867 U/L (313-618)
[2020-09-08 04:51] LABS: INR 1.3 (<1.2)
[2020-09-08 04:52] LABS: Partial Thromboplastin Time 21.2 sec (22.0-30.0); Prothrombin Time 12.7 sec (9.0-12.0)
[2020-09-08 05:07] LABS: Band Neutrophils % 6 %; Blast Cells # (M) 2.36 k/uL (0); Lymphocytes # (M) 0.83 k/uL (1.0-4.8); Metamyelocytes # (M) 0.35 k/uL (0); Metamyelocytes % 3 %; Monocytes # (M) 0.71 k/uL (0-1.0); Myelocytes # (M) 0.24 k/uL (0); Myelocytes % 2 %; Neutrophils % (M) 56 %; Nucleated Red Blood Cells 0 /100 WBC (0-0); Total Cells Counted 200
[2020-09-08 06:27] LABS: Glucose,Whole Blood 154 mg/dL (75-99)
--- NOTE | 2020-09-08 07:41 | XR ---
EXAMINATION TYPE: XR chest 1V portable DATE OF EXAM: 09/08/2020 COMPARISON: 09/07/2020 HISTORY: SOB, Follow Up FINDINGS: Indwelling tubes and catheters are unchanged. No change in bibasilar opacities. Stable appearance of the cardio-mediastinal structures at this time. Pleural effusion unchanged. IMPRESSION: 1. Stable portable chest. Clinical correlation and follow up until resolution is recommended.
[2020-09-08 07:44] LABS: ABG Base Excess -4.6 mmol/L; ABG HCO3 19 mmol/L (21-25); ABG Oxygen Saturation 97.1 % (94-97); ABG PCO2 27 mmHg (35-45); ABG PH 7.47 (7.35-7.45); ABG PO2 84 mmHg (83-108); ABG TCO2 20 mmol/L (19-24)
[2020-09-08 07:45] LABS: Allen Test Performed? no
[2020-09-08 08:26] LABS: Glucose,Whole Blood 149 mg/dL (75-99)
[2020-09-08] MEDS: LINEZOLID 600 MG in DEXTROSE/WATER 1 300ML.BAG IVPB SCH ×2 (09:05→20:40)
[2020-09-08] MEDS: PANTOPRAZOLE 40 MG/10 ML VIAL IVP SCH ×2 (09:06→20:40)
[2020-09-08] MEDS: FUROSEMIDE 10 MG/ML 4 ML VIAL IV SCH (09:06)
[2020-09-08] MEDS: DILTIAZEM 125 MG in SODIUM CHLORIDE 0.9% 100 ML IV SCH ×2 (09:07→15:04)
[2020-09-08] MEDS: CHLORHEXIDINE GLUCONATE 15 ML CUP MUCOUS MEM SCH ×2 (09:17→20:40)
[2020-09-08] MEDS: AMIODARONE 200 MG TAB PO SCH ×2 (09:17→20:41)
[2020-09-08] MEDS: DIGOXIN 250 MCG TAB PO SCH (09:18)
[2020-09-08] MEDS: POTASSIUM CHLORIDE ER 20 MEQ TAB.ER PO SCH ×2 (09:18→20:41)
[2020-09-08] MEDS: TAMSULOSIN 0.4 MG CAP.ER.24H PO SCH ×2 (09:19→20:41)
[2020-09-08] MEDS: MAGNESIUM OXIDE 400 MG TAB PO SCH (09:19)
[2020-09-08] MEDS: GABAPENTIN 100 MG CAP PO SCH ×3 (09:19→20:41)
[2020-09-08] MEDS: SENNOSIDES 8.6 MG TAB PO SCH (09:20)
[2020-09-08] MEDS: ANIDULAFUNGIN 100 MG in SODIUM CHLORIDE 0.9% 100 ML IVPB SCH (09:22)
[2020-09-08] MEDS: METOPROLOL TARTRATE 50 MG TAB PO SCH ×3 (09:22→20:41)
--- NOTE | 2020-09-08 09:57 | P.PN ---
Subjective Progress Note Date: 09/15/20 Principal diagnosis: APL - Acute Hypoxic respiratory failure Fibrinogen 78 today, transfuse Cryoprecipitate in picture of low grade DIC secondary to his ooverall picture of differentiation syndrome. LDH improving, Uric acid stable. Platelets 35K, monitor for bleeding Objective - Vital Signs Vital signs: Vital Signs Temp 98.8 F 09/08/20 09:00 Pulse 94 09/08/20 09:00 Resp 16 09/08/20 09:00 BP 124/70 09/08/20 09:00 Pulse Ox 95 09/08/20 09:00 Intake & Output 09/07/20 09/08/20 09/08/20 18:59 06:59 18:59 Intake Total 4149.033 2103.500 1105.535 Output Total 2095 825 515 Balance 2054.033 1278.500 590.535 Weight 107.1 kg 106.9 kg Intake: IV 1153 1171 593 0.9@ 75 75 Acyclovir Sodium 1,000 mg 500 250 In Sodium Chloride 0.9% 250 ml @ 270 mls/hr IVPB Q8HR ANA Rx#:[id number] Linezolid 600 mg In 300 300 Dextrose/Water 1 300ml. bag @ 150 mls/hr IVPB Q12HR ANA Rx#:[id number] Normal Saline Pressure 78 66 18 Bag Piperacillin-Tazobactam 3 200 100 .375 gm In Sodium Chloride 0.9% 100 ml @ 25 mls/hr IVPB Q8HR ANA Rx# :[id number] Sodium Chloride 0.45% 1, 805 225 000 ml @ 75 mls/hr IV . [id number] ANA Rx#:[id number] Intake, IV Titration 1398.033 545.500 191.535 Amount Anidulafungin 100 mg In 100 100 Sodium Chloride 0.9% 100 ml @ 84 mls/hr IVPB DAILY ANA Rx#:[id number] Diltiazem 125 mg In 125 244.5 0.5 Sodium Chloride 0.9% 100 ml @ 15 MG/HR 15 mls/hr IV .Q8H20M ANA Rx#: [id number] Insulin Regular 100 unit 101 101.000 In Sodium Chloride 0.9% 100 ml @ Per Protocol IV .Q0M ANA Rx#:[id number] Norepinephrine 32 mg In 12.441 Sodium Chloride 0.9% 218 ml @ 0.06 MCG/KG/MIN 2. 776 mls/hr IV .Q24H ANA Rx#:[id number] Sodium Chloride 0.45% 1, 900 000 ml @ 75 mls/hr IV . [id number] [facility] Rx#:[id number] propofoL 1,000 mg In 159.592 200 91.035 Empty Bag 1 bag @ Titrate IV .Q0M ANA Rx#: [id number] Tube Feeding 328 297 81 Blood Product 1270 100 Pooled Cryoprecipitate 100 Unit [id number] Rc Irr As1 Unit 310 [id number] Rc Irr As1 Unit 310 [id number] Other 90 140 Pooled Cryoprecipitate 50 Unit [id number] Output: Urine 2095 825 515 Other: Voiding Method Indwelling Catheter Indwelling Catheter ABP, PAP, CO, CI - Last Documented Arterial Blood Pressure 109/87 - Exam - Constitutional Constitutional Comment(s): Ventilator ENT:ET tube - Respiratory - Vent, tachypneic Respiratory: bilateral: rales, rhonchi - Cardiovascular Rhythm: irregularly irregular - Gastrointestinal General gastrointestinal: Present: distended, normal bowel sounds, soft - Integumentary Integumentary: Present: normal - Neurologic Neurologic:KARSTEN - Musculoskeletal Musculoskeletal:Atrophy noted to muscles, KARSTEN strength BLE and BUE edema - Psychiatric Psychiatric: KARSTEN - Labs CBC & Chem 7: 09/08/20 04:10 09/08/20 04:10 Labs: Abnormal Lab Results - Last 24 Hours (Table) 09/06/20 09/07/20 09/07/20 Range/Units 12:30 10:22 13:01 WBC (3.8-10.6) k/uL RBC (4.30-5.90) m/uL Hgb (13.0-17.5) gm/dL Hct (39.0-53.0) % RDW (11.5-15.5) % Plt Count (150-450) k/uL Blast Cells % % Lymphocytes # (Manual) (1.0-4.8) k/uL Metamyelocytes # (Man) (0) k/uL Myelocytes # (Manual) (0) k/uL Blast Cells # (Man) (0) k/uL PT (9.0-12.0) sec INR (<1.2) APTT (22.0-30.0) sec Fibrinogen (200-500) mg/dL D-Dimer (<0.60) mg/L FEU ABG pH (7.35-7.45) ABG pCO2 (35-45) mmHg ABG HCO3 (21-25) mmol/L ABG O2 Saturation (94-97) % Chloride (98-107) mmol/L Carbon Dioxide (22-30) mmol/L BUN (9-20) mg/dL Glucose (74-99) mg/dL POC Glucose (mg/dL) 145 H 141 H (75-99) mg/dL Uric Acid (3.5-8.5) mg/dL Calcium (8.4-10.2) mg/dL Magnesium (1.6-2.3) mg/dL Lactate Dehydrogenase (313-618) U/L Total Protein (6.3-8.2) g/dL Albumin (3.5-5.0) g/dL Crossmatch See Detail 09/07/20 09/07/20 09/07/20 Range/Units 14:25 16:36 18:01 WBC (3.8-10.6) k/uL RBC (4.30-5.90) m/uL Hgb (13.0-17.5) gm/dL Hct (39.0-53.0) % RDW (11.5-15.5) % Plt Count (150-450) k/uL Blast Cells % % Lymphocytes # (Manual) (1.0-4.8) k/uL Metamyelocytes # (Man) (0) k/uL Myelocytes # (Manual) (0) k/uL Blast Cells # (Man) (0) k/uL PT (9.0-12.0) sec INR (<1.2) APTT (22.0-30.0) sec Fibrinogen (200-500) mg/dL D-Dimer (<0.60) mg/L FEU ABG pH (7.35-7.45) ABG pCO2 (35-45) mmHg ABG HCO3 (21-25) mmol/L ABG O2 Saturation (94-97) % Chloride (98-107) mmol/L Carbon Dioxide (22-30) mmol/L BUN (9-20) mg/dL Glucose (74-99) mg/dL POC Glucose (mg/dL) 124 H 135 H 128 H (75-99) mg/dL Uric Acid (3.5-8.5) mg/dL Calcium (8.4-10.2) mg/dL Magnesium (1.6-2.3) mg/dL Lactate Dehydrogenase (313-618) U/L Total Protein (6.3-8.2) g/dL Albumin (3.5-5.0) g/dL Crossmatch 09/07/20 09/07/20 09/07/20 Range/Units 20:30 23:21 23:25 WBC (3.8-10.6) k/uL RBC (4.30-5.90) m/uL Hgb (13.0-17.5) gm/dL Hct (39.0-53.0) % RDW (11.5-15.5) % Plt Count (150-450) k/uL Blast Cells % % Lymphocytes # (Manual) (1.0-4.8) k/uL Metamyelocytes # (Man) (0) k/uL Myelocytes # (Manual) (0) k/uL Blast Cells # (Man) (0) k/uL PT (9.0-12.0) sec INR (<1.2) APTT (22.0-30.0) sec Fibrinogen (200-500) mg/dL D-Dimer (<0.60) mg/L FEU ABG pH (7.35-7.45) ABG pCO2 (35-45) mmHg ABG HCO3 (21-25) mmol/L ABG O2 Saturation (94-97) % Chloride (98-107) mmol/L Carbon Dioxide (22-30) mmol/L BUN (9-20) mg/dL Glucose (74-99) mg/dL POC Glucose (mg/dL) 149 H 207 H 204 H (75-99) mg/dL Uric Acid (3.5-8.5) mg/dL Calcium (8.4-10.2) mg/dL Magnesium (1.6-2.3) mg/dL Lactate Dehydrogenase (313-618) U/L Total Protein (6.3-8.2) g/dL Albumin (3.5-5.0) g/dL Crossmatch 09/08/20 09/08/20 09/08/20 Range/Units 00:47 02:06 04:06 WBC (3.8-10.6) k/uL RBC (4.30-5.90) m/uL Hgb (13.0-17.5) gm/dL Hct (39.0-53.0) % RDW (11.5-15.5) % Plt Count (150-450) k/uL Blast Cells % % Lymphocytes # (Manual) (1.0-4.8) k/uL Metamyelocytes # (Man) (0) k/uL Myelocytes # (Manual) (0) k/uL Blast Cells # (Man) (0) k/uL PT (9.0-12.0) sec INR (<1.2) APTT (22.0-30.0) sec Fibrinogen (200-500) mg/dL D-Dimer (<0.60) mg/L FEU ABG pH (7.35-7.45) ABG pCO2 (35-45) mmHg ABG HCO3 (21-25) mmol/L ABG O2 Saturation (94-97) % Chloride (98-107) mmol/L Carbon Dioxide (22-30) mmol/L BUN (9-20) mg/dL Glucose (74-99) mg/dL POC Glucose (mg/dL) 184 H 164 H 156 H (75-99) mg/dL Uric Acid (3.5-8.5) mg/dL Calcium (8.4-10.2) mg/dL Magnesium (1.6-2.3) mg/dL Lactate Dehydrogenase (313-618) U/L Total Protein (6.3-8.2) g/dL Albumin (3.5-5.0) g/dL Crossmatch 09/08/20 09/08/20 09/08/20 Range/Units 04:10 04:10 04:10 WBC 11.8 H (3.8-10.6) k/uL RBC 2.72 L (4.30-5.90) m/uL Hgb 9.0 L D (13.0-17.5) gm/dL Hct 24.8 L (39.0-53.0) % RDW 19.8 H (11.5-15.5) % Plt Count 35 L (150-450) k/uL Blast Cells % 20 H* % Lymphocytes # (Manual) 0.83 L (1.0-4.8) k/uL Metamyelocytes # (Man) 0.35 H (0) k/uL Myelocytes # (Manual) 0.24 H (0) k/uL Blast Cells # (Man) 2.36 H (0) k/uL PT 12.7 H (9.0-12.0) sec INR 1.3 H (<1.2) APTT 21.2 L (22.0-30.0) sec Fibrinogen 74 L* (200-500) mg/dL D-Dimer 29.00 H (<0.60) mg/L FEU ABG pH (7.35-7.45) ABG pCO2 (35-45) mmHg ABG HCO3 (21-25) mmol/L ABG O2 Saturation (94-97) % Chloride 121 H (98-107) mmol/L Carbon Dioxide 21 L (22-30) mmol/L BUN 43 H (9-20) mg/dL Glucose 153 H (74-99) mg/dL POC Glucose (mg/dL) (75-99) mg/dL Uric Acid 2.8 L (3.5-8.5) mg/dL Calcium 7.5 L (8.4-10.2) mg/dL Magnesium 2.6 H (1.6-2.3) mg/dL Lactate Dehydrogenase 6867 H (313-618) U/L Total Protein 4.6 L (6.3-8.2) g/dL Albumin 2.3 L (3.5-5.0) g/dL Crossmatch 09/08/20 09/08/20 09/08/20 Range/Units 06:25 07:42 08:24 WBC (3.8-10.6) k/uL RBC (4.30-5.90) m/uL Hgb (13.0-17.5) gm/dL Hct (39.0-53.0) % RDW (11.5-15.5) % Plt Count (150-450) k/uL Blast Cells % % Lymphocytes # (Manual) (1.0-4.8) k/uL Metamyelocytes # (Man) (0) k/uL Myelocytes # (Manual) (0) k/uL Blast Cells # (Man) (0) k/uL PT (9.0-12.0) sec INR (<1.2) APTT (22.0-30.0) sec Fibrinogen (200-500) mg/dL D-Dimer (<0.60) mg/L FEU ABG pH 7.47 H (7.35-7.45) ABG pCO2 27 L (35-45) mmHg ABG HCO3 19 L (21-25) mmol/L ABG O2 Saturation 97.1 H (94-97) % Chloride (98-107) mmol/L Carbon Dioxide (22-30) mmol/L BUN (9-20) mg/dL Glucose (74-99) mg/dL POC Glucose (mg/dL) 154 H 149 H (75-99) mg/dL Uric Acid (3.5-8.5) mg/dL Calcium (8.4-10.2) mg/dL Magnesium (1.6-2.3) mg/dL Lactate Dehydrogenase (313-618) U/L Total Protein (6.3-8.2) g/dL Albumin (3.5-5.0) g/dL Crossmatch Microbiology - Last 24 Hours (Table) 09/06/20 11:16 Gram Stain - Preliminary Sputum Sputum Culture - Preliminary [place] albicans Yeast species 08/31/20 10:30 Acid Fast Bacilli Smear - Final Bronchial Washings - Random Acid Fast Bacilli Culture - Preliminary 09/06/20 09:05 Urine Culture - Final Urine,Catheterized 09/04/20 11:11 Blood Culture - Preliminary Blood No Growth after 72 hours 09/06/20 09:15 Blood Culture - Preliminary Blood No Growth after 24 hours Assessment and Plan Plan: Assessment and Recommendations: 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 Unfort worsened to 56% on 09/02/20 and today 59% on 09/03/20. 09/07/20 = 40% Unable to administer hydrea dosage through feeding tube while on ventilator therefore will order Cyatarbine 100mg/m2 iv x3 days as cytoreduction treatment. 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 Low Grade DIC - - Transfuse unit of Cryoprecipitate if Fibrinogen less than 100 - MOnitor for any s/s bleeding especially oozing from lines or Bowels or Bladder - Transfuse platelets if less than 50K and bleeding or if coagulopathy Transfuse FFP in picture of bleeding or oozing - Cry given on 09/06/20, fibrinogen 98 - Cryo ordered today 09/08/20 = 78 Cytokine Storm/Differentiation Syndrome Febrile - Coverage with abx, anti-fungal, anti-viral - ID is following - Cultures negative to date - afebrile since 09/06/20 Acute Hypoxic Respiratory Failure: Secondary to differentiation syndrome plus or minus sepsis - Remains ICU on Mechanical Ventilator (08/30/2020) - Acute development of diffuse bilateral pulmonary infiltrates - Differentials include pneumonia/CHF (not consistent with CHF - felt to be differential syndrome) versus noncardiogenic pulmonary edema 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 - Daily CBC, CMP, Fibrinogen, PTT, PT, INR, Dimer, Phos, Mag, LDH - Transfuse Cryoprecipitate today for low grade DIC Fibrinogen 78 - Continue on 20mg IV dex (in 2-3 doses) daily - Status Post Cytarabine for cytokine reduction (Day 3 of 3) on 09/07/20 Physician Attest: I have completed the full history and physical and agree with above dictation, dictated as a scribe
[2020-09-08 10:02] LABS: Glucose,Whole Blood 170 mg/dL (75-99)
--- NOTE | 2020-09-08 10:10 | P.PN ---
Subjective This is a pleasant 75-year-old male currently undergoing chemotherapy. He is in the intensive care unit intubated on IV sedation. He continues to be in atrial flutter with a heart rate of 90. Blood pressure maintaining around 110 systolic with no pressors currently on board. Digoxin level less than 0.4. Other lab data reviewed, WBC 11.8, hemoglobin 9, platelets 35, blast cell percent 20, INR 1.3, d-dimer 29, pH 7.47, pCO2 27, pO2 84, bicarb 19, sodium 145, potassium 4.1, creatinine 0.94. This mornings chest xray eveals unchanged pleural effusion. GENERAL: No acute distress.generalized pallor. NECK: Supple without JVD or thyromegaly. LUNGS: Bibasilar rales, no wheezes or rhonchi Respiration equal and unlabored. Diminished. HEART: Irregular rate and rhythm with systolic ejection murmur at the base, no rubs or gallops. S1 and S2 heard. EXTREMITIES: Normal range of motion, bilateral lower extremity trace pitting edema. No clubbing or cyanosis. Peripheral pulses intact. ASSESSMENT Paroxysmal atrial fibrillation/atrial flutter with rapid ventricular response. Status post cardioversion 2017 Acute on chronic diastolic heart failure on admission Acute systolic heart failure with evidence of possible tak[place]ubo Aortic stenosis Hypertension Dyslipidemia Diabetes mellitus Anemia, requiring blood transfusion PLAN Continue current medical regimen. Prognosis guarded, further recommendations to follow. Nurse Practitioner note has been reviewed, I agree with a documented findings and plan of care. Patient was seen and examined. Objective - Vital Signs Vital signs: Vital Signs Temp 98.8 F 09/08/20 09:30 Pulse 90 09/08/20 10:00 Resp 21 09/08/20 10:00 BP 111/71 09/08/20 10:00 Pulse Ox 98 09/08/20 10:00 Intake & Output 09/07/20 09/08/20 09/08/20 18:59 06:59 18:59 Intake Total 4149.033 2103.500 1442.318 Output Total 2095 825 840 Balance 2054.033 1278.500 602.318 Weight 107.1 kg 106.9 kg Intake: IV 1153 1171 849 0.9@ 75 75 Acyclovir Sodium 1,000 mg 500 250 In Sodium Chloride 0.9% 250 ml @ 270 mls/hr IVPB Q8HR ANA Rx#:[id number] Linezolid 600 mg In 300 300 250 Dextrose/Water 1 300ml. bag @ 150 mls/hr IVPB Q12HR ANA Rx#:[id number] Normal Saline Pressure 78 66 24 Bag Piperacillin-Tazobactam 3 200 100 .375 gm In Sodium Chloride 0.9% 100 ml @ 25 mls/hr IVPB Q8HR ANA Rx# :[id number] Sodium Chloride 0.45% 1, 805 225 000 ml @ 75 mls/hr IV . [id number] ANA Rx#:[id number] Intake, IV Titration 1398.033 545.500 245.318 Amount Anidulafungin 100 mg In 100 100 Sodium Chloride 0.9% 100 ml @ 84 mls/hr IVPB DAILY ANA Rx#:[id number] Diltiazem 125 mg In 125 244.5 0.5 Sodium Chloride 0.9% 100 ml @ 15 MG/HR 15 mls/hr IV .Q8H20M [facility] Rx#: [id number] Insulin Regular 100 unit 101 101.000 53.783 In Sodium Chloride 0.9% 100 ml @ Per Protocol IV .Q0M ANA Rx#:[id number] Norepinephrine 32 mg In 12.441 Sodium Chloride 0.9% 218 ml @ 0.06 MCG/KG/MIN 2. 776 mls/hr IV .Q24H ANA Rx#:[id number] Sodium Chloride 0.45% 1, 900 000 ml @ 75 mls/hr IV . [id number] [facility] Rx#:[id number] propofoL 1,000 mg In 159.592 200 91.035 Empty Bag 1 bag @ Titrate IV .Q0M [facility] Rx#: [id number] Tube Feeding 328 297 108 Blood Product 1270 100 Pooled Cryoprecipitate 100 Unit [id number] Rc Irr As1 Unit 310 [id number] Rc Irr As1 Unit 310 [id number] Other 90 140 Pooled Cryoprecipitate 50 Unit [id number] Output: Urine 2095 825 840 Other: Voiding Method Indwelling Catheter Indwelling Catheter ABP, PAP, CO, CI - Last Documented Arterial Blood Pressure 115/96 - Labs CBC & Chem 7: 09/08/20 04:10 09/08/20 04:10 Labs: Abnormal Lab Results - Last 24 Hours (Table) 09/06/20 09/07/20 09/07/20 Range/Units 12:30 10:22 13:01 WBC (3.8-10.6) k/uL RBC (4.30-5.90) m/uL Hgb (13.0-17.5) gm/dL Hct (39.0-53.0) % RDW (11.5-15.5) % Plt Count (150-450) k/uL Blast Cells % % Lymphocytes # (Manual) (1.0-4.8) k/uL Metamyelocytes # (Man) (0) k/uL Myelocytes # (Manual) (0) k/uL Blast Cells # (Man) (0) k/uL PT (9.0-12.0) sec INR (<1.2) APTT (22.0-30.0) sec Fibrinogen (200-500) mg/dL D-Dimer (<0.60) mg/L FEU ABG pH (7.35-7.45) ABG pCO2 (35-45) mmHg ABG HCO3 (21-25) mmol/L ABG O2 Saturation (94-97) % Chloride (98-107) mmol/L Carbon Dioxide (22-30) mmol/L BUN (9-20) mg/dL Glucose (74-99) mg/dL POC Glucose (mg/dL) 145 H 141 H (75-99) mg/dL Uric Acid (3.5-8.5) mg/dL Calcium (8.4-10.2) mg/dL Magnesium (1.6-2.3) mg/dL Lactate Dehydrogenase (313-618) U/L Total Protein (6.3-8.2) g/dL Albumin (3.5-5.0) g/dL Crossmatch See Detail 09/07/20 09/07/20 09/07/20 Range/Units 14:25 16:36 18:01 WBC (3.8-10.6) k/uL RBC (4.30-5.90) m/uL Hgb (13.0-17.5) gm/dL Hct (39.0-53.0) % RDW (11.5-15.5) % Plt Count (150-450) k/uL Blast Cells % % Lymphocytes # (Manual) (1.0-4.8) k/uL Metamyelocytes # (Man) (0) k/uL Myelocytes # (Manual) (0) k/uL Blast Cells # (Man) (0) k/uL PT (9.0-12.0) sec INR (<1.2) APTT (22.0-30.0) sec Fibrinogen (200-500) mg/dL D-Dimer (<0.60) mg/L FEU ABG pH (7.35-7.45) ABG pCO2 (35-45) mmHg ABG HCO3 (21-25) mmol/L ABG O2 Saturation (94-97) % Chloride (98-107) mmol/L Carbon Dioxide (22-30) mmol/L BUN (9-20) mg/dL Glucose (74-99) mg/dL POC Glucose (mg/dL) 124 H 135 H 128 H (75-99) mg/dL Uric Acid (3.5-8.5) mg/dL Calcium (8.4-10.2) mg/dL Magnesium (1.6-2.3) mg/dL Lactate Dehydrogenase (313-618) U/L Total Protein (6.3-8.2) g/dL Albumin (3.5-5.0) g/dL Crossmatch 09/07/20 09/07/20 09/07/20 Range/Units 20:30 23:21 23:25 WBC (3.8-10.6) k/uL RBC (4.30-5.90) m/uL Hgb (13.0-17.5) gm/dL Hct (39.0-53.0) % RDW (11.5-15.5) % Plt Count (150-450) k/uL Blast Cells % % Lymphocytes # (Manual) (1.0-4.8) k/uL Metamyelocytes # (Man) (0) k/uL Myelocytes # (Manual) (0) k/uL Blast Cells # (Man) (0) k/uL PT (9.0-12.0) sec INR (<1.2) APTT (22.0-30.0) sec Fibrinogen (200-500) mg/dL D-Dimer (<0.60) mg/L FEU ABG pH (7.35-7.45) ABG pCO2 (35-45) mmHg ABG HCO3 (21-25) mmol/L ABG O2 Saturation (94-97) % Chloride (98-107) mmol/L Carbon Dioxide (22-30) mmol/L BUN (9-20) mg/dL Glucose (74-99) mg/dL POC Glucose (mg/dL) 149 H 207 H 204 H (75-99) mg/dL Uric Acid (3.5-8.5) mg/dL Calcium (8.4-10.2) mg/dL Magnesium (1.6-2.3) mg/dL Lactate Dehydrogenase (313-618) U/L Total Protein (6.3-8.2) g/dL Albumin (3.5-5.0) g/dL Crossmatch 09/08/20 09/08/20 09/08/20 Range/Units 00:47 02:06 04:06 WBC (3.8-10.6) k/uL RBC (4.30-5.90) m/uL Hgb (13.0-17.5) gm/dL Hct (39.0-53.0) % RDW (11.5-15.5) % Plt Count (150-450) k/uL Blast Cells % % Lymphocytes # (Manual) (1.0-4.8) k/uL Metamyelocytes # (Man) (0) k/uL Myelocytes # (Manual) (0) k/uL Blast Cells # (Man) (0) k/uL PT (9.0-12.0) sec INR (<1.2) APTT (22.0-30.0) sec Fibrinogen (200-500) mg/dL D-Dimer (<0.60) mg/L FEU ABG pH (7.35-7.45) ABG pCO2 (35-45) mmHg ABG HCO3 (21-25) mmol/L ABG O2 Saturation (94-97) % Chloride (98-107) mmol/L Carbon Dioxide (22-30) mmol/L BUN (9-20) mg/dL Glucose (74-99) mg/dL POC Glucose (mg/dL) 184 H 164 H 156 H (75-99) mg/dL Uric Acid (3.5-8.5) mg/dL Calcium (8.4-10.2) mg/dL Magnesium (1.6-2.3) mg/dL Lactate Dehydrogenase (313-618) U/L Total Protein (6.3-8.2) g/dL Albumin (3.5-5.0) g/dL Crossmatch 09/08/20 09/08/20 09/08/20 Range/Units 04:10 04:10 04:10 WBC 11.8 H (3.8-10.6) k/uL RBC 2.72 L (4.30-5.90) m/uL Hgb 9.0 L D (13.0-17.5) gm/dL Hct 24.8 L (39.0-53.0) % RDW 19.8 H (11.5-15.5) % Plt Count 35 L (150-450) k/uL Blast Cells % 20 H* % Lymphocytes # (Manual) 0.83 L (1.0-4.8) k/uL Metamyelocytes # (Man) 0.35 H (0) k/uL Myelocytes # (Manual) 0.24 H (0) k/uL Blast Cells # (Man) 2.36 H (0) k/uL PT 12.7 H (9.0-12.0) sec INR 1.3 H (<1.2) APTT 21.2 L (22.0-30.0) sec Fibrinogen 74 L* (200-500) mg/dL D-Dimer 29.00 H (<0.60) mg/L FEU ABG pH (7.35-7.45) ABG pCO2 (35-45) mmHg ABG HCO3 (21-25) mmol/L ABG O2 Saturation (94-97) % Chloride 121 H (98-107) mmol/L Carbon Dioxide 21 L (22-30) mmol/L BUN 43 H (9-20) mg/dL Glucose 153 H (74-99) mg/dL POC Glucose (mg/dL) (75-99) mg/dL Uric Acid 2.8 L (3.5-8.5) mg/dL Calcium 7.5 L (8.4-10.2) mg/dL Magnesium 2.6 H (1.6-2.3) mg/dL Lactate Dehydrogenase 6867 H (313-618) U/L Total Protein 4.6 L (6.3-8.2) g/dL Albumin 2.3 L (3.5-5.0) g/dL Crossmatch 09/08/20 09/08/20 09/08/20 Range/Units 06:25 07:42 08:24 WBC (3.8-10.6) k/uL RBC (4.30-5.90) m/uL Hgb (13.0-17.5) gm/dL Hct (39.0-53.0) % RDW (11.5-15.5) % Plt Count (150-450) k/uL Blast Cells % % Lymphocytes # (Manual) (1.0-4.8) k/uL Metamyelocytes # (Man) (0) k/uL Myelocytes # (Manual) (0) k/uL Blast Cells # (Man) (0) k/uL PT (9.0-12.0) sec INR (<1.2) APTT (22.0-30.0) sec Fibrinogen (200-500) mg/dL D-Dimer (<0.60) mg/L FEU ABG pH 7.47 H (7.35-7.45) ABG pCO2 27 L (35-45) mmHg ABG HCO3 19 L (21-25) mmol/L ABG O2 Saturation 97.1 H (94-97) % Chloride (98-107) mmol/L Carbon Dioxide (22-30) mmol/L BUN (9-20) mg/dL Glucose (74-99) mg/dL POC Glucose (mg/dL) 154 H 149 H (75-99) mg/dL Uric Acid (3.5-8.5) mg/dL Calcium (8.4-10.2) mg/dL Magnesium (1.6-2.3) mg/dL Lactate Dehydrogenase (313-618) U/L Total Protein (6.3-8.2) g/dL Albumin (3.5-5.0) g/dL Crossmatch 09/08/20 Range/Units 10:00 WBC (3.8-10.6) k/uL RBC (4.30-5.90) m/uL Hgb (13.0-17.5) gm/dL Hct (39.0-53.0) % RDW (11.5-15.5) % Plt Count (150-450) k/uL Blast Cells % % Lymphocytes # (Manual) (1.0-4.8) k/uL Metamyelocytes # (Man) (0) k/uL Myelocytes # (Manual) (0) k/uL Blast Cells # (Man) (0) k/uL PT (9.0-12.0) sec INR (<1.2) APTT (22.0-30.0) sec Fibrinogen (200-500) mg/dL D-Dimer (<0.60) mg/L FEU ABG pH (7.35-7.45) ABG pCO2 (35-45) mmHg ABG HCO3 (21-25) mmol/L ABG O2 Saturation (94-97) % Chloride (98-107) mmol/L Carbon Dioxide (22-30) mmol/L BUN (9-20) mg/dL Glucose (74-99) mg/dL POC Glucose (mg/dL) 170 H (75-99) mg/dL Uric Acid (3.5-8.5) mg/dL Calcium (8.4-10.2) mg/dL Magnesium (1.6-2.3) mg/dL Lactate Dehydrogenase (313-618) U/L Total Protein (6.3-8.2) g/dL Albumin (3.5-5.0) g/dL Crossmatch Microbiology - Last 24 Hours (Table) 09/06/20 11:16 Gram Stain - Preliminary Sputum Sputum Culture - Preliminary [place] albicans Yeast species 08/31/20 10:30 Acid Fast Bacilli Smear - Final Bronchial Washings - Random Acid Fast Bacilli Culture - Preliminary 09/06/20 09:05 Urine Culture - Final Urine,Catheterized 09/04/20 11:11 Blood Culture - Preliminary Blood No Growth after 72 hours 09/06/20 09:15 Blood Culture - Preliminary Blood No Growth after 24 hours
[2020-09-08 11:58] LABS: Glucose,Whole Blood 173 mg/dL (75-99)
--- NOTE | 2020-09-08 13:02 | P.PN ---
Subjective Progress Note Date: 09/08/20 Principal diagnosis: Acute hypoxic respiratory failure with bilateral pneumonia in immunocompromised host. 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 The patient got transferred to the intensive care unit yesterday because of an acute hypoxic respiratory failure/acute lung injury with development of bilateral pulmonary infiltrates. Note that the patient was originally hospitalized on 08/24/2024 shortness of breath and difficulty breathing. The patient is known to have chronic atrial fibrillation along with hypertension and hyperlipidemia. He was also being seen by cardiology regarding atrial fibrillation. As the patient developed breath and pulmonary infiltrates and acute hypoxic respiratory failure, the patient a chest to the intensive care unit and he was placed on a BiPAP at a pressure of 14/5 cm of water. FiO2 was as high as 90% and it was being titrated. The patient also had been placed on broad-spectrum antibiotics including IV Zosyn. He was being diuresis with IV Lasix 40 mg every 12 hours. He was on a Cardizem drip at 15 mg an hour to control atrial fibrillation. Remains on Decadron 5 mg IV every 6 hours. The chest x-ray as mentioned shows interval development of bilateral perihilar pulmonary infiltrates which are currently diffuse. The patient demonstrated gradual improvement in the white cell count from a baseline of 0.7 up to 20 and the platelet count is up to 79 with a hemoglobin of 8.0. The patient did not receive any packed RBC transfusions. The differential count shows 46% blasts. Renal function is impaired in the creatinine is 1.47 as the patient is being diuresed. Uric acid level is up to 8.9 with a calcium level of 8.3 and phosphorus level of 5.8 and LDH level was as high as 5244 indicating the possibility of a tumor lysis syndrome. Based on that, the patient was given a dose of respirator he carries yesterday and urine acid level is improved considerably. The echo from last month showed a preserved LV function with an ejection fraction of 6065%. The patient has mild MR, RV is mildly enlarged. Note that the patient over progressively more short of breath and hypoxic. At point, the patient was intubated and placed on a mechanical ventilator. I saw this patient this morning. The patient was already intubated on a mechanical ventilator on assist control mode with a rate of 24 with a tidal volume of 450 and FiO2 of 50% with a PEEP of 10. The blood gas showed a pH of 7.42 with a pCO2 of 40 and pO2 of 104. This was on FiO2 of 60%. The patient was sedated with propofol running at 75 mg per KG per minute. The patient is also on insulin at 5 units an hour for blood sugar control. The patient is on norepinephrine infusion at 0.06 units per KG per minute. Cardizem drip is running at 50 mg an hour in regards to her atrial fibrillation. The heart rate is in the order of 110-120. He is afebrile. Chest x-rays showing bilateral pulmonary infiltrates, stable compared to yesterday. immediately a bronchoscopy was done and the bronchioloalveolar lavage of the right middle lobe was collected as there was a concern of an underlying infection. The patient is currently on IV Zosyn. Lasix was discontinued. On 09/01/2020, the patient is being seen in follow-up in the intensive care unit. The patient remains intubated on a mechanical ventilator. This morning the patient is sedated with propofol at the rate of 45 g per KG per minute. The patient remains on mechanical ventilator on assist control mode at the rate of 24 with a tidal volume of 450 and FiO2 of 40% with a PEEP of 10. Blood gases from today showed a pH of 7.44 with a pCO2 of 38 and pO2 of 152. Chest x-ray still showing diffuse bilateral pulmonary infiltrates slightly improved compared to yesterday. Oxidation is also improved. Based on that, I made recommendation s to gradually wean off the PEEP down to 5 cm of water. The patient unfortunately continues to be in atrial fibrillation. The patient is not adequately controlled. The patient is on a Cardizem drip at 15 mg an hour. The patient is also on amiodarone 0.5 mg an hour and the patient is also on meto prolol 100 mg by mouth 3 times a day. The patient is being supported with norepinephrine infusion for blood pressure support at the rate of 0.06 mg per KG per minute. The patient is afebrile. The patient is currently on IV Zosyn. The patient's bronchoscopy and the bronchioloalveolar lavage was done yesterday and the patient does not have any possible microbial growth for now. No fever. No chills. He is receiving daily Lasix 40 mg IV push to maintain adequate fluid balance. In terms of hematologic profile, the white cell count is up to 28 and the patient has 12% blast cells. The platelet count is at 96 with a hemoglobin of 7.3. The patient is currently on Hydrea the patient is also on Decadron. Discussed the case with oncology. We will hold off the ATRA treatment as the patient has gone into differentiation syndrome. On 09/02/2020, I'm seeing the patient for a follow-up in the intensive care unit. The patient remains intubated on a mechanical ventilator. This morning the patient remains on propofol at 50 g per KG per minute. The patient is also on a mechanical ventilator at the rate of 24 with a tidal volume of 450 and FiO2 of 40% with a PEEP of 5. Chest x-ray is showing stable bilateral pulmonary infiltrates without any major change compared to yesterday. Meanwhile the blood gases from today showed a pH of 7.47 with a pCO2 of 34 and pO2 of 110. The patient remains in atrial fibrillation on obviously it has been very difficult to control the rate. He is not a candidate for cardioversion and the patient cannot take any anticoagulants. 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 In terms of his A. fib, the patient remains on a combination of Cardizem drip, amiodarone drip in addition to beta blockers [employer] host. Digoxin was also added by cardiology. Heart rate is ranging between 110 and 130, irregular. He is afebrile. He is covered with Zosyn. The bronchoscopy and bronchial alveolar lavage done earlier yielded no microbial growth. The patient remains on Decadron. The patient remains on Hydrea. LDH is on the rise. White cell count today is at 26.4. Platelet count is at 91. The patient is 54% blasts and off and sleepy is a sign of progression of his underlying AML. The BUN is at 53 with a creatinine of 1.05. The patient was given daily Lasix and the patient's fluid balance has been +7 40 mL over the past 24 hours. The patient is on enteral feeding for nutritional support. The patient is well sedated. A sedation holiday was given today. He was taken off the propofol and subsequently became more tachycardic and restless and asynchronous with a mechanical ventilator and the procedure had to be aborted and the patient was p laced back on sedation. On 09/03/2020, seeing this patient for a follow-up in the intensive care unit and the patient is doing poorly. The patient remains sedated on a mechanical ventilator. The patient is on propofol infusion running at 60 g per KG per minute. The patient is on a mechanical ventilator session the same vent setting is yesterday with a rate of 24 with a tidal volume of 450 and FiO2 of 40% with a PEEP of 5. The blood gases showed a pH of 7.49 with a pCO2 of 33 and pO2 of 94. Chest x-ray findings are essentially stable. Nevertheless, the patient continues to be in atrial fibrillation with a rapid ventricular response and has been very difficult to control his heart rate. He is currently on a combination of Cardizem drip at 15 mg an hour and addition to amiodarone drip at 0.5 mg per minute and metoprolol at a dose of 100 mg by mouth 3 times a day. He is also on digoxin 0.25 mg on a daily basis. The patient is still having A. fib RVR despite this ongoing treatment for rate control. His heart rate is ranging between 120 and 160, irregular and the patient is also requiring norepinephrine infusion for blood pressure control and the patient is currently on levo fed running at 7 g per minute. Cardiology is on the case and the patient will not be cardioverted based on our ability to provide him any anticoagulants at the time of cardioversion. Hematologically, he is still in acute leukemic crisis. The patient platelet count is at 106. The patient has a 57% blasts. LDH pulses on the rise the patient has a BUN of 50 with a creatinine of 1.0. Uric acid is up to 2.4. Bilirubin is at 0.9, AST slightly elevated at 104. The patient was given Hydrea by hematology oncology at were unable to give him because of our inability to crushed medication. He is on Decadron 5 mg every 6 hours. The patient is afebrile. The patient on IV Zosyn. The bronchioloalveolar lavage was negative. Chest x-ray findings are stable. The neck fluid balance is in order of 34 1 mL positive and the patient is receiving daily Lasix dose of 40 mg IV push. On 09/04/2020, the patient remains intubated on a mechanical ventilator. As stated earlier, the patient was started on systemic therapy with cytarabine and this was started last night. This morning, the patient assist-control mode of ventilation at the rate of 24 with a tidal volume of 500 and FiO2 of 50% and a PEEP of 5. The patient's is sedated with propofol. The patient was having bouts of fever overnight and the patient's had a T-max of 102.2. The patient was given Tylenol. Cultures were sent. Noted the bronchoscopy and the bronchioloalveolar lavage done earlier showed no evidence of any microbial growth. 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 The chest x-ray still showing some pains right infrahilar and more prominent left basilar infiltrate/atelectasis. No new infiltration seen.. The patient remains in atrial fibrillation. Heart rate is still quite tachycardic and the patient c ontinues to be on Cardizem drip at 15mg an hour in addition to metoprolol 100 mg by mouth 3 times a day, digoxin 250 g daily basis and amiodarone that has been switched to oral at a dose of 5 mg by mouth twice a day. The patient is still requiring low-dose norepinephrine infusion for blood pressure support which is running at 0.02 mg per KG per minute. I started the patient IV fluid and the patient was going on systemic chemotherapy and currently is on normal saline at rate of 70 mL an hour. The patient is taking insulin drip at 14 units an hour. He remains on IV Zosyn. Note that the hematologic profile is still quite abnormal. The white cell count is at 66.9. The patient has 46% blasts in the peripheral smear. Platelet counts at 76. The LDH remains elevated at 10,336. Renal function is stable with a BUN of 47 with a creatinine of 0.9. Uric acid level is at 2.6. Calcium level level is at 7.3. On 09/05/2020, the patient is still doing poorly. The patient is completing [facility] chemotherapy regarding the acute AML crisis. Hematologically, the patient continues to have increased level of blasts in his peripheral smear addition to leukocytosis and elevated LDH. The patient is completing a course of cytarabine. Meanwhile, the patient is still sedated on mechanical ventilator. He is on propofol for sedation running at 60 g per KG per minute. I'll be unable to cut down his sedation as the patient becomes severely tachycardic restless and LUAN inhibitor the mechanical ventilator once of sedation. In terms of his cardiac status, heart rate is still tachycardic and in A. fib rhythm. Despite a combination of metoprolol 100 mg 3 times a day, Cardizem 50 mg an ho ur, amiodarone 400 mg twice a day and digoxin to 50 mg on a daily basis, the patient continues to be quite tachycardic. He is on no anticoagulants for now. He was having episodes of fever and the fever workup included a bronchoscopy and the bronchioloalveolar lavage that showed HSV-1 with some candidal elements. For that reason the patient was given a combination of acyclovir, Aguilar in combination with Zosyn as broad-spectrum antibiotic coverage. The patient is off pressors this morning. He is on a assist-control mode at the rate of 24 with a tidal volume of 500 and FiO2 of 40% with a PEEP of 5. Blood gas show pH of 7.46 with a pCO2 of 30-121 oxygen. The patient's chest x-ray shows increased interstitial infiltrates bilaterally which are somewhat stable compared to yesterday, probably slightly worse on the right. He is receiving daily Lasix doses. The fluid balance has been essentially slightly positive in order of +1 L over the past 24 hours. The patient is on insulin drip at 50 units an hour. He is receiving enteral feeding for nutritional support. No other significant events overnight. On 09/06/2020, the patient is still doing poorly. He is completing the chemot herapy. He remains sedated and unable to come off the sedation as the patient becomes quite breathless agitated tachycardic while off sedation. For that reason the patient is on 60 g of propofol infusion. Breath settings are essentially the same with an assist-control mode at the rate of 24 with a tidal volume of 500 and FiO2 of 40% with a PEEP of 5. PH is 7.43 with a pCO2 of 31 pO2 of 87. He is still having episodic low-grade fever. [place] was cultured from the bronchioloalveolar lavage in addition to HSV and the patient was covered with a combination of Zosyn, acyclovir and Eraxis. Repeat cultures be obtained accordingly. Meanwhile, the patient is currently off pressors. A. fib is still active although less tachycardic to prior evaluation. He remains on a combination of metoprolol, amiodarone, Cardizem drip and digoxin. He is receiving enteral feeding for nutritional support with vital high protein at the rate of 20 mL an hour. As mentioned is completing systemic chemotherapy with cytarabine. The white cell count of 32 with a 11 of 7.4. Platelet count is a 75. The patient continues to 47% blasts in the peripheral smear. Correlation profile is decent. The sodium level is up to 148 with a potassium level of 5.2 and a chloride of 123. The BUN is 41 with a creatinine of 1.06. Patient was reevaluated today on 09/07/20, remains in the ICU, intubated and mechanically ventilated his ventilator settings are volume control plus with tidal volume is 500 rate of 24, FiO2 40% and PEEP of 5. ABG showed a pO2 of 91 pCO2 of 30 pH of 7.43. Patient is off propofol this morning to assess mental status, and it seems to be a bit appropriate. He is on Cardizem drip as well as enteral feeding, and his IV fluid is at 75 mL per hour. Patient received 2 units of packed RBC this morning for hemoglobin of 6.4. And that being managed by hematology/oncology on the case. Patient remains on Zyvox, Zosyn, acyclovir, and Eraxis. Patient was intubated on 08/30, and he remains on mechanical ventilation since then. Labs today with abnormal with hemoglobin of 6.4 blasts cells are 57%. Platelets are 52,000. Sodium is 147 potassium 4.2 chloride is 122 BUN is 42 creatinine 0.87. LDH is coming down it is 10,264 today, uric acid is 3.0. Patient was reevaluated today on 09/08/20, remains in the ICU, intubated, mechanically ventilated. His ventilator settings are assist control rate of 24 tidal volume is 500 FiO2 is 40% and PEEP of 5. ABG showed a pO2 of 84 pCO2 of 27 pH of 7.47. Patient is on multiple drips, Cardizem at 15 mg per hour, insulin at 7 units per hour, she is also on propofol at 25 mcg/kg/m, off norepinephrine. Patient is sedated, however I plan to wean sedation down, and assess mental status. I'm also cutting down his Cardizem today to 10 mg per hour. All his labs were reviewed, LDH seems to be coming down, however the patient is receiving cryoprecipitate, fibrinogen is quite low today. It was felt by oncology that the patient may be having a low-grade DIC. Uric acid remains under control. And again his LDH is improving platelets are 35,000 sitting chest x-ray continues to show bibasilar infiltrates. Objective - Vital Signs Vital signs: Vital Signs Temp 99.1 F 09/08/20 12:00 Pulse 106 H 09/08/20 12:30 Resp 28 H 09/08/20 12:30 BP 100/58 09/08/20 12:30 Pulse Ox 93 L 09/08/20 12:30 Intake & Output 09/07/20 09/08/20 09/08/20 18:59 06:59 18:59 Intake Total 4149.033 2103.500 1688.318 Output Total 2095 825 1565 Balance 2054.033 1278.500 123.318 Weight 107.1 kg 106.9 kg Intake: IV 1153 1171 1011 0.9@ 75 75 Acyclovir Sodium 1,000 mg 500 250 In Sodium Chloride 0.9% 250 ml @ 270 mls/hr IVPB Q8HR ANA Rx#:[id number] Linezolid 600 mg In 300 300 250 Dextrose/Water 1 300ml. bag @ 150 mls/hr IVPB Q12HR ANA Rx#:[id number] Normal Saline Pressure 78 66 36 Bag Piperacillin-Tazobactam 3 200 100 .375 gm In Sodium Chloride 0.9% 100 ml @ 25 mls/hr IVPB Q8HR ANA Rx# :[id number] Sodium Chloride 0.45% 1, 805 375 000 ml @ 75 mls/hr IV . [id number] ANA Rx#:[id number] Intake, IV Titration 1398.033 545.500 245.318 Amount Anidulafungin 100 mg In 100 100 Sodium Chloride 0.9% 100 ml @ 84 mls/hr IVPB DAILY ANA Rx#:[id number] Diltiazem 125 mg In 125 244.5 0.5 Sodium Chloride 0.9% 100 ml @ 10 MG/HR 10 mls/hr IV .[id number] ANA Rx#: [id number] Insulin Regular 100 unit 101 101.000 53.783 In Sodium Chloride 0.9% 100 ml @ Per Protocol IV .Q0M ANA Rx#:[id number] Norepinephrine 32 mg In 12.441 Sodium Chloride 0.9% 218 ml @ 0.06 MCG/KG/MIN 2. 776 mls/hr IV .Q24H ANA Rx#:[id number] Sodium Chloride 0.45% 1, 900 000 ml @ 75 mls/hr IV . [id number] [facility] Rx#:[id number] propofoL 1,000 mg In 159.592 200 91.035 Empty Bag 1 bag @ Titrate IV .Q0M ANA Rx#: [id number] Tube Feeding 328 297 162 Blood Product 1270 100 Pooled Cryoprecipitate 100 Unit [id number] Rc Irr As1 Unit 310 [id number] Rc Irr As1 Unit 310 [id number] Other 90 170 Pooled Cryoprecipitate 50 Unit [id number] Output: Urine 2095 825 1565 Other: Voiding Method Indwelling Catheter Indwelling Catheter ABP, PAP, CO, CI - Last Documented Arterial Blood Pressure 106/61 - Exam -GENERAL: Revealed a 75-year-old white male on mechanical ventilation, in no distress. HEENT: PERRLA, EOMI, no icterus, no neck masses, no JVD, orogastric tube and endotracheal tube are intact. CARDIOVASCULAR: Normal S1 and S2, no S3 gallop. PULMONARY: Crackles at the bases, no rhonchi and no wheezes. ABDOMEN: Obese, soft, nontender, no megaly, no rebound, no guarding. MUSCULOSKELETAL: No limitation in range of motion, good muscle tone. No deformities. -EXTREMITIES: No clubbing or cyanosis, trace of bipedal edema NEUROLOGICAL: Off propofol, patient is arousable, follows very simple instructions. SKIN: No rashes. no petechiae. Psychiatric: Arousable, follows very simple instructions. Seems to have intact mental status. - Labs CBC & Chem 7: 09/08/20 04:10 09/08/20 04:10 Labs: Abnormal Lab Results - Last 24 Hours (Table) 09/07/20 09/07/20 09/07/20 Range/Units 13:01 14:25 16:36 WBC (3.8-10.6) k/uL RBC (4.30-5.90) m/uL Hgb (13.0-17.5) gm/dL Hct (39.0-53.0) % RDW (11.5-15.5) % Plt Count (150-450) k/uL Blast Cells % % Lymphocytes # (Manual) (1.0-4.8) k/uL Metamyelocytes # (Man) (0) k/uL Myelocytes # (Manual) (0) k/uL Blast Cells # (Man) (0) k/uL PT (9.0-12.0) sec INR (<1.2) APTT (22.0-30.0) sec Fibrinogen (200-500) mg/dL D-Dimer (<0.60) mg/L FEU ABG pH (7.35-7.45) ABG pCO2 (35-45) mmHg ABG HCO3 (21-25) mmol/L ABG O2 Saturation (94-97) % Chloride (98-107) mmol/L Carbon Dioxide (22-30) mmol/L BUN (9-20) mg/dL Glucose (74-99) mg/dL POC Glucose (mg/dL) 141 H 124 H 135 H (75-99) mg/dL Uric Acid (3.5-8.5) mg/dL Calcium (8.4-10.2) mg/dL Magnesium (1.6-2.3) mg/dL Lactate Dehydrogenase (313-618) U/L Total Protein (6.3-8.2) g/dL Albumin (3.5-5.0) g/dL 09/07/20 09/07/20 09/07/20 Range/Units 18:01 20:30 23:21 WBC (3.8-10.6) k/uL RBC (4.30-5.90) m/uL Hgb (13.0-17.5) gm/dL Hct (39.0-53.0) % RDW (11.5-15.5) % Plt Count (150-450) k/uL Blast Cells % % Lymphocytes # (Manual) (1.0-4.8) k/uL Metamyelocytes # (Man) (0) k/uL Myelocytes # (Manual) (0) k/uL Blast Cells # (Man) (0) k/uL PT (9.0-12.0) sec INR (<1.2) APTT (22.0-30.0) sec Fibrinogen (200-500) mg/dL D-Dimer (<0.60) mg/L FEU ABG pH (7.35-7.45) ABG pCO2 (35-45) mmHg ABG HCO3 (21-25) mmol/L ABG O2 Saturation (94-97) % Chloride (98-107) mmol/L Carbon Dioxide (22-30) mmol/L BUN (9-20) mg/dL Glucose (74-99) mg/dL POC Glucose (mg/dL) 128 H 149 H 207 H (75-99) mg/dL Uric Acid (3.5-8.5) mg/dL Calcium (8.4-10.2) mg/dL Magnesium (1.6-2.3) mg/dL Lactate Dehydrogenase (313-618) U/L Total Protein (6.3-8.2) g/dL Albumin (3.5-5.0) g/dL 09/07/20 09/08/20 09/08/20 Range/Units 23:25 00:47 02:06 WBC (3.8-10.6) k/uL RBC (4.30-5.90) m/uL Hgb (13.0-17.5) gm/dL Hct (39.0-53.0) % RDW (11.5-15.5) % Plt Count (150-450) k/uL Blast Cells % % Lymphocytes # (Manual) (1.0-4.8) k/uL Metamyelocytes # (Man) (0) k/uL Myelocytes # (Manual) (0) k/uL Blast Cells # (Man) (0) k/uL PT (9.0-12.0) sec INR (<1.2) APTT (22.0-30.0) sec Fibrinogen (200-500) mg/dL D-Dimer (<0.60) mg/L FEU ABG pH (7.35-7.45) ABG pCO2 (35-45) mmHg ABG HCO3 (21-25) mmol/L ABG O2 Saturation (94-97) % Chloride (98-107) mmol/L Carbon Dioxide (22-30) mmol/L BUN (9-20) mg/dL Glucose (74-99) mg/dL POC Glucose (mg/dL) 204 H 184 H 164 H (75-99) mg/dL Uric Acid (3.5-8.5) mg/dL Calcium (8.4-10.2) mg/dL Magnesium (1.6-2.3) mg/dL Lactate Dehydrogenase (313-618) U/L Total Protein (6.3-8.2) g/dL Albumin (3.5-5.0) g/dL 09/08/20 09/08/20 09/08/20 Range/Units 04:06 04:10 04:10 WBC 11.8 H (3.8-10.6) k/uL RBC 2.72 L (4.30-5.90) m/uL Hgb 9.0 L D (13.0-17.5) gm/dL Hct 24.8 L (39.0-53.0) % RDW 19.8 H (11.5-15.5) % Plt Count 35 L (150-450) k/uL Blast Cells % 20 H* % Lymphocytes # (Manual) 0.83 L (1.0-4.8) k/uL Metamyelocytes # (Man) 0.35 H (0) k/uL Myelocytes # (Manual) 0.24 H (0) k/uL Blast Cells # (Man) 2.36 H (0) k/uL PT 12.7 H (9.0-12.0) sec INR 1.3 H (<1.2) APTT 21.2 L (22.0-30.0) sec Fibrinogen 74 L* (200-500) mg/dL D-Dimer 29.00 H (<0.60) mg/L FEU ABG pH (7.35-7.45) ABG pCO2 (35-45) mmHg ABG HCO3 (21-25) mmol/L ABG O2 Saturation (94-97) % Chloride (98-107) mmol/L Carbon Dioxide (22-30) mmol/L BUN (9-20) mg/dL Glucose (74-99) mg/dL POC Glucose (mg/dL) 156 H (75-99) mg/dL Uric Acid (3.5-8.5) mg/dL Calcium (8.4-10.2) mg/dL Magnesium (1.6-2.3) mg/dL Lactate Dehydrogenase (313-618) U/L Total Protein (6.3-8.2) g/dL Albumin (3.5-5.0) g/dL 09/08/20 09/08/20 09/08/20 Range/Units 04:10 06:25 07:42 WBC (3.8-10.6) k/uL RBC (4.30-5.90) m/uL Hgb (13.0-17.5) gm/dL Hct (39.0-53.0) % RDW (11.5-15.5) % Plt Count (150-450) k/uL Blast Cells % % Lymphocytes # (Manual) (1.0-4.8) k/uL Metamyelocytes # (Man) (0) k/uL Myelocytes # (Manual) (0) k/uL Blast Cells # (Man) (0) k/uL PT (9.0-12.0) sec INR (<1.2) APTT (22.0-30.0) sec Fibrinogen (200-500) mg/dL D-Dimer (<0.60) mg/L FEU ABG pH 7.47 H (7.35-7.45) ABG pCO2 27 L (35-45) mmHg ABG HCO3 19 L (21-25) mmol/L ABG O2 Saturation 97.1 H (94-97) % Chloride 121 H (98-107) mmol/L Carbon Dioxide 21 L (22-30) mmol/L BUN 43 H (9-20) mg/dL Glucose 153 H (74-99) mg/dL POC Glucose (mg/dL) 154 H (75-99) mg/dL Uric Acid 2.8 L (3.5-8.5) mg/dL Calcium 7.5 L (8.4-10.2) mg/dL Magnesium 2.6 H (1.6-2.3) mg/dL Lactate Dehydrogenase 6867 H (313-618) U/L Total Protein 4.6 L (6.3-8.2) g/dL Albumin 2.3 L (3.5-5.0) g/dL 09/08/20 09/08/20 09/08/20 Range/Units 08:24 10:00 11:00 WBC (3.8-10.6) k/uL RBC (4.30-5.90) m/uL Hgb (13.0-17.5) gm/dL Hct (39.0-53.0) % RDW (11.5-15.5) % Plt Count (150-450) k/uL Blast Cells % % Lymphocytes # (Manual) (1.0-4.8) k/uL Metamyelocytes # (Man) (0) k/uL Myelocytes # (Manual) (0) k/uL Blast Cells # (Man) (0) k/uL PT (9.0-12.0) sec INR (<1.2) APTT (22.0-30.0) sec Fibrinogen 138 L (200-500) mg/dL D-Dimer (<0.60) mg/L FEU ABG pH (7.35-7.45) ABG pCO2 (35-45) mmHg ABG HCO3 (21-25) mmol/L ABG O2 Saturation (94-97) % Chloride (98-107) mmol/L Carbon Dioxide (22-30) mmol/L BUN (9-20) mg/dL Glucose (74-99) mg/dL POC Glucose (mg/dL) 149 H 170 H (75-99) mg/dL Uric Acid (3.5-8.5) mg/dL Calcium (8.4-10.2) mg/dL Magnesium (1.6-2.3) mg/dL Lactate Dehydrogenase (313-618) U/L Total Protein (6.3-8.2) g/dL Albumin (3.5-5.0) g/dL 09/08/20 Range/Units 11:56 WBC (3.8-10.6) k/uL RBC (4.30-5.90) m/uL Hgb (13.0-17.5) gm/dL Hct (39.0-53.0) % RDW (11.5-15.5) % Plt Count (150-450) k/uL Blast Cells % % Lymphocytes # (Manual) (1.0-4.8) k/uL Metamyelocytes # (Man) (0) k/uL Myelocytes # (Manual) (0) k/uL Blast Cells # (Man) (0) k/uL PT (9.0-12.0) sec INR (<1.2) APTT (22.0-30.0) sec Fibrinogen (200-500) mg/dL D-Dimer (<0.60) mg/L FEU ABG pH (7.35-7.45) ABG pCO2 (35-45) mmHg ABG HCO3 (21-25) mmol/L ABG O2 Saturation (94-97) % Chloride (98-107) mmol/L Carbon Dioxide (22-30) mmol/L BUN (9-20) mg/dL Glucose (74-99) mg/dL POC Glucose (mg/dL) 173 H (75-99) mg/dL Uric Acid (3.5-8.5) mg/dL Calcium (8.4-10.2) mg/dL Magnesium (1.6-2.3) mg/dL Lactate Dehydrogenase (313-618) U/L Total Protein (6.3-8.2) g/dL Albumin (3.5-5.0) g/dL Microbiology - Last 24 Hours (Table) 09/06/20 11:16 Gram Stain - Preliminary Sputum Sputum Culture - Preliminary [place] albicans Virginia glabrata 09/06/20 09:15 Blood Culture - Preliminary Blood No Growth after 48 hours 08/31/20 10:30 Acid Fast Bacilli Smear - Final Bronchial Washings - Random Acid Fast Bacilli Culture - Preliminary 09/06/20 09:05 Urine Culture - Final Urine,Catheterized 09/04/20 11:11 Blood Culture - Preliminary Blood No Growth after 72 hours Assessment and Plan Assessment: Impression: Acute hypoxic respiratory failure Acute bilateral pulmonary infiltrates, differential diagnoses includes pneumonia or lung injury from promyelocytic leukemia treatment. Patient is immunocompromised, he is definitely a set up for infection. Tumor lysis syndrome Acute leukemic crisis with elevated level of blasts with anemia and thrombocytopenia patient is receiving cytarabine chemotherapy. Acute promyelocytic leukemia Type 2 diabetes. Requiring insulin drip. Chronic atrial fibrillation. Remains on Cardizem, we'll cut down the dose to 10 mg per hour. Dyslipidemia. Acute kidney injury on presentation, improving since admission. History of poliomyelitis as a child. History of psoriasis. History of obstructive sleep apnea syndrome. Benign essential hypertension. Recommendation: Continue ventilatory support. Assess weaning trials on a daily basis in the next 24 hours. Continue antibiotics and antiviral therapy. Continue present cardiac meds to control his atrial fibrillation. Continue systemic chemotherapy Transfused with blood and platelets as necessary. Patient is receiving cryoprecipitate today, felt that the patient may be having mild the DIC, this is being addressed by hematology on the case Continue enteral feeding. Monitor daily labs for tumor lysis syndrome. LDH is improving and uric acid is stable. Continue sedation and continue sedation interruption on a daily basis and assess mental status. Patient is not quite ready for any weaning trials today Continue to monitor and correct daily electrolytes. Overall prognosis remains definitely poor and guarded, We'll continue to follow. Critical care time is 36 minutes Time with Patient: Greater than 30
[2020-09-08 14:04] LABS: Glucose,Whole Blood 154 mg/dL (75-99)
[2020-09-08] MEDS: NOREPINEPHRINE 32 MG in SODIUM CHLORIDE 0.9% 218 ML IV SCH ×2 (15:05→20:54)
[2020-09-08 16:14] LABS: Glucose,Whole Blood 137 mg/dL (75-99)
[2020-09-08 17:30] LABS: Glucose,Whole Blood 142 mg/dL (75-99)
[2020-09-08 18:31] LABS: Glucose,Whole Blood 135 mg/dL (75-99)
[2020-09-08] MEDS ORDERED: ONDANSETRON 16 MG in SODIUM CHLORIDE 0.9% 50 ML IVPB ONE (19:00)
[2020-09-08] MEDS ORDERED: FAMOTIDINE 20 MG/2 ML VIAL IV ONE (19:00)
[2020-09-08 19:16] LABS: Glucose,Whole Blood 138 mg/dL (75-99)
[2020-09-08] MEDS ORDERED: SODIUM CHLORIDE 0.9% IV ONE (20:00)
[2020-09-08] MEDS ORDERED: CYTARABINE IV ONE (20:00)
[2020-09-08 20:09] LABS: Glucose,Whole Blood 173 mg/dL (75-99)
[2020-09-08] MEDS: ATORVASTATIN 10 MG TAB PO SCH (20:41)
[2020-09-08 22:12] LABS: Glucose,Whole Blood 226 mg/dL (75-99)
--- NOTE | 2020-09-08 22:24 | P.PN ---
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 HE was treated with Zosyn and eraxis, pulmonary/critical care team on the case and then following the patient closely, as well as hematology and oncology team and he is receiving CPR pain with close monitoring of hematologic parameters. Also he is afebrile with RVR needing Cardizem drip, amiodarone and digoxin and beta barbara, cardiology on the case. Also he is on steroids. Carotid fever low-grade temperature today. He is also on insulin drip and blood pressure is low normal. 09/06/2020 Patient remains in the ICU intubated and sedated. Patient still spiking fever up to 1 or 2 today, could be due to sepsis versus his acute leukemic crisis. Infectious and hematology/oncology team on the case, Zosyn has been added to his antibiotic regimen by ID team, continue with acyclovir, Zyvox and Eraxis. Also oncology team continue with chemotherapy cytrarbine , while his blasts increased today to 47% compared to 30% yesterday also his WBC increased to 27 up to 32 today today. His platelets are 70 5K and hemoglobin stable at 7.4. Pulmonary on the team and they are considering a sedation holiday tomorrow Cardiology on the team and he still on Cardizem drip on the top of his beta barbara, digoxin and amiodarone, his rate is controlled, patient is not a candidate for anticoagulation due to his blood disease and Also on insulin drip and his sugars controlled. 09/07/2020 Patient remains in the ICU, intubated on mechanical ventilation and on critical condition, still receiving several drips including insulin drip, Cardizem drip and small dose of norepinephrine. Still on broad-spectrum antibiotics of Zosyn and Zyvox and is followed by several consultants He has bicytopenia with hemoglobin 6.4 and platelets 52, WBC is trending down slightly today to 15.2 K. He still have elevated blasts 37% but there are improvement. Patient was getting chemotherapy with cytarabine as per oncology and hematology team. Stepdaughter at bedside and I discussed the case with her and she understands the plan of care and the guarded prognosis 09/08/20 pt is still intubated , her underwent sedation holiday but could not be extubated yesterday he is still on cardizem drip at 15 mg/h, insulin drip 9 u/h, intravenous fluid at 55 ml/h, but epinephrine is stopped today his Hb is better today at 9 he remain on broad spectrum antibiotic and got cytarabine today per hematology/oncology team Prognosis remains guarded Review of systems: N/a Active Medications Generic Name Dose Route Start Last Admin Trade Name Freq PRN Reason Stop Dose Admin Acetaminophen 500 mg 09/03/20 18:58 09/06/20 08:15 Acetaminophen Tab 500 Mg Tab PO 500 mg Q4HR PRN Administration Fever and/ or Pain Hydrocodone Bitart/Acetaminophen 1 each 08/24/20 20:04 09/03/20 12:38 Hydrocodone/Apap 10-325mg 1 Each Tab PO 1 each QID PRN Administration Pain Al Hydroxide/Mg Hydroxide 30 ml 08/25/20 21:43 08/29/20 02:27 Mag Hydrox/Al Hydrox/Simeth 30 Ml Cup PO 30 ml Q4HR PRN Administration GI Upset Amiodarone HCl 200 mg 09/08/20 21:00 09/08/20 20:41 Amiodarone 200 Mg Tab PO 200 mg BID ANA Administration Atorvastatin Calcium 10 mg 08/24/20 21:00 09/08/20 20:41 Atorvastatin 10 Mg Tab PO 10 mg HS ANA Administration Chlorhexidine Gluconate 15 ml 08/30/20 21:00 09/08/20 20:40 Chlorhexidine Gluconate 15 Ml Cup MUCOUS MEM 15 ml BID ANA Administration Dexamethasone Sodium Phosphate 5 mg 08/30/20 14:49 09/08/20 17:26 Dexamethasone Sod Phosphate 4 Mg/Ml 1 Ml Vial IV 5 mg Q6HR ANA Administration Digoxin 250 mcg 09/03/20 09:00 09/08/20 09:18 Digoxin 250 Mcg Tab PO 250 mcg DAILY ANA Administration Furosemide 40 mg 09/01/20 09:00 09/08/20 09:06 Furosemide 10 Mg/Ml 4 Ml Vial IV 40 mg DAILY ANA Administration Gabapentin 100 mg 08/24/20 22:00 09/08/20 20:41 Gabapentin 100 Mg Cap PO 100 mg TID ANA Administration Diltiazem HCl 125 mg/ Sodium 125 mls @ 10 mls/hr 08/29/20 00:30 09/08/20 15:04 Chloride IV 10 mg/hr .[id number] ANA 10 mls/hr Administration 10 MG/HR Propofol 1,000 mg/ IV Solution 100 mls @ 0 mls/hr 08/30/20 20:20 09/08/20 16:14 IV 25 mcg/kg/min .Q0M ANA 16.035 mls/hr Administration Protocol Titrate Insulin Human Regular 100 unit 101 mls @ 0 mls/hr 08/31/20 09:00 09/08/20 20:40 / Sodium Chloride IV 8 units/hr .Q0M ANA 8.08 mls/hr Titration Protocol Per Protocol Norepinephrine Bitartrate 32 250 mls @ 2.776 mls/hr 08/31/20 15:30 09/08/20 21:39 mg/ Sodium Chloride IV 0 mcg/kg/min .Q24H ANA 0 mls/hr Titration Protocol 0.06 MCG/KG/MIN Piperacillin Sod/Tazobactam 100 mls @ 25 mls/hr 09/03/20 16:00 09/08/20 15:54 Sod 3.375 gm/ Sodium Chloride IVPB 25 mls/hr Q8HR ANA Administration Acyclovir Sodium 1,000 mg/ 270 mls @ 270 mls/hr 09/04/20 16:00 09/08/20 15:55 Sodium Chloride IVPB 270 mls/hr Q8HR ANA Administration Anidulafungin 100 mg/ Sodium 100 mls @ 84 mls/hr 09/06/20 09:00 09/08/20 09:22 Chloride IVPB 84 mls/hr DAILY ANA Administration Sodium Chloride 1,000 mls @ 75 mls/hr 09/06/20 08:45 09/08/20 14:09 Saline 0.45% IV 75 mls/hr .[id number] ANA Administration Linezolid 600 mg/ IV Solution 300 mls @ 150 mls/hr 09/06/20 21:30 09/08/20 20:40 IVPB 150 mls/hr Q12HR ANA Administration Protocol Cytarabine 210 mg/ Sodium 1,010.5 mls @ 42.104 mls/hr 09/08/20 20:00 09/08/20 19:34 Chloride IV 09/09/20 19:59 42.104 mls/hr ONCE ONE Administration Insulin Human Regular 9.9 unit 08/31/20 10:25 Insulin Regular Bolus (From Drip Bag) 0.1 unit/kg (9.9 unit) 09/30/20 21:00 IV ONCE PRN Blood Sugar - High Magnesium Oxide 400 mg 08/28/20 09:00 09/08/20 09:19 Magnesium Oxide 400 Mg Tab PO Not Given DAILY ANA Metoprolol Tartrate 100 mg 08/29/20 16:00 09/08/20 20:41 Metoprolol Tartrate 50 Mg Tab PO 100 mg TID ANA Administration Miscellaneous Information 1 each 08/24/20 20:19 Potassium Replacement Protocol 1 Each Misc MISCELLANE DAILY PRN Per Protocol Protocol Miscellaneous Information 1 each 08/24/20 20:20 Magnesium Replacement Protocol 1 Each Misc MISCELLANE DAILY PRN Per Protocol Protocol Pantoprazole Sodium 40 mg 08/31/20 10:45 09/08/20 20:40 Pantoprazole 40 Mg/10 Ml Vial IVP 40 mg BID ANA Administration Potassium Chloride 20 meq 08/28/20 09:00 09/08/20 20:41 Potassium Chloride Er 20 Meq Tab.Er PO 20 meq BID ANA Administration Senna 8.6 mg 09/03/20 21:00 09/08/20 09:20 Sennosides 8.6 Mg Tab PO Not Given DAILY ANA Tamsulosin HCl 0.4 mg 08/24/20 21:00 09/08/20 20:41 Tamsulosin 0.4 Mg Cap.Er.24h PO 0.4 mg BID ANA Administration Objective - Vital Signs Vital signs: Vital Signs Temp 98.8 F 09/08/20 09:30 Pulse 105 H 09/08/20 11:30 Resp 24 09/08/20 11:30 BP 114/71 09/08/20 11:30 Pulse Ox 95 09/08/20 11:30 Intake & Output 09/07/20 09/08/20 09/08/20 18:59 06:59 18:59 Intake Total 4149.033 2103.500 1550.318 Output Total 2095 825 1315 Balance 2054.033 1278.500 235.318 Weight 107.1 kg 106.9 kg Intake: IV 1153 1171 930 0.9@ 75 75 Acyclovir Sodium 1,000 mg 500 250 In Sodium Chloride 0.9% 250 ml @ 270 mls/hr IVPB Q8HR ANA Rx#:[id number] Linezolid 600 mg In 300 300 250 Dextrose/Water 1 300ml. bag @ 150 mls/hr IVPB Q12HR ANA Rx#:[id number] Normal Saline Pressure 78 66 30 Bag Piperacillin-Tazobactam 3 200 100 .375 gm In Sodium Chloride 0.9% 100 ml @ 25 mls/hr IVPB Q8HR ANA Rx# :[id number] Sodium Chloride 0.45% 1, 805 300 000 ml @ 75 mls/hr IV . [id number] ANA Rx#:[id number] Intake, IV Titration 1398.033 545.500 245.318 Amount Anidulafungin 100 mg In 100 100 Sodium Chloride 0.9% 100 ml @ 84 mls/hr IVPB DAILY ANA Rx#:[id number] Diltiazem 125 mg In 125 244.5 0.5 Sodium Chloride 0.9% 100 ml @ 15 MG/HR 15 mls/hr IV .Q8H20M [facility] Rx#: [id number] Insulin Regular 100 unit 101 101.000 53.783 In Sodium Chloride 0.9% 100 ml @ Per Protocol IV .Q0M ANA Rx#:[id number] Norepinephrine 32 mg In 12.441 Sodium Chloride 0.9% 218 ml @ 0.06 MCG/KG/MIN 2. 776 mls/hr IV .Q24H ANA Rx#:[id number] Sodium Chloride 0.45% 1, 900 000 ml @ 75 mls/hr IV . [id number] [facility] Rx#:[id number] propofoL 1,000 mg In 159.592 200 91.035 Empty Bag 1 bag @ Titrate IV .Q0M ANA Rx#: [id number] Tube Feeding 328 297 135 Blood Product 1270 100 Pooled Cryoprecipitate 100 Unit [id number] Rc Irr As1 Unit 310 [id number] Rc Irr As1 Unit 310 [id number] Other 90 140 Pooled Cryoprecipitate 50 Unit [id number] Output: Urine 2095 825 1315 Other: Voiding Method Indwelling Catheter Indwelling Catheter ABP, PAP, CO, CI - Last Documented Arterial Blood Pressure 141/72 - Exam -GENERAL: The patient is intubated and sedated HEENT: Pupils are round and equally reacting to light. EOMI. No scleral icterus. No conjunctival pallor. Normocephalic, atraumatic. No pharyngeal erythema. No thyromegaly. CARDIOVASCULAR: S1 and S2 present. No murmurs, rubs, or gallops. PULMONARY: Chest is clear to auscultation, no wheezing or crackles. ABDOMEN: Soft, nontender, nondistended, normoactive bowel sounds. No palpable organomegaly. MUSCULOSKELETAL: No joint swelling or deformity. -EXTREMITIES: No cyanosis, clubbing,. Mild bilateral pitting pedal edema. NEUROLOGICAL: Gross neurological examination did not reveal any focal deficits. SKIN: No rashes. no petechiae. - Labs CBC & Chem 7: 09/08/20 04:10 09/08/20 04:10 Labs: Abnormal Lab Results - Last 24 Hours (Table) 09/07/20 09/07/20 09/07/20 Range/Units 13:01 14:25 16:36 WBC (3.8-10.6) k/uL RBC (4.30-5.90) m/uL Hgb (13.0-17.5) gm/dL Hct (39.0-53.0) % RDW (11.5-15.5) % Plt Count (150-450) k/uL Blast Cells % % Lymphocytes # (Manual) (1.0-4.8) k/uL Metamyelocytes # (Man) (0) k/uL Myelocytes # (Manual) (0) k/uL Blast Cells # (Man) (0) k/uL PT (9.0-12.0) sec INR (<1.2) APTT (22.0-30.0) sec Fibrinogen (200-500) mg/dL D-Dimer (<0.60) mg/L FEU ABG pH (7.35-7.45) ABG pCO2 (35-45) mmHg ABG HCO3 (21-25) mmol/L ABG O2 Saturation (94-97) % Chloride (98-107) mmol/L Carbon Dioxide (22-30) mmol/L BUN (9-20) mg/dL Glucose (74-99) mg/dL POC Glucose (mg/dL) 141 H 124 H 135 H (75-99) mg/dL Uric Acid (3.5-8.5) mg/dL Calcium (8.4-10.2) mg/dL Magnesium (1.6-2.3) mg/dL Lactate Dehydrogenase (313-618) U/L Total Protein (6.3-8.2) g/dL Albumin (3.5-5.0) g/dL 09/07/20 09/07/20 09/07/20 Range/Units 18:01 20:30 23:21 WBC (3.8-10.6) k/uL RBC (4.30-5.90) m/uL Hgb (13.0-17.5) gm/dL Hct (39.0-53.0) % RDW (11.5-15.5) % Plt Count (150-450) k/uL Blast Cells % % Lymphocytes # (Manual) (1.0-4.8) k/uL Metamyelocytes # (Man) (0) k/uL Myelocytes # (Manual) (0) k/uL Blast Cells # (Man) (0) k/uL PT (9.0-12.0) sec INR (<1.2) APTT (22.0-30.0) sec Fibrinogen (200-500) mg/dL D-Dimer (<0.60) mg/L FEU ABG pH (7.35-7.45) ABG pCO2 (35-45) mmHg ABG HCO3 (21-25) mmol/L ABG O2 Saturation (94-97) % Chloride (98-107) mmol/L Carbon Dioxide (22-30) mmol/L BUN (9-20) mg/dL Glucose (74-99) mg/dL POC Glucose (mg/dL) 128 H 149 H 207 H (75-99) mg/dL Uric Acid (3.5-8.5) mg/dL Calcium (8.4-10.2) mg/dL Magnesium (1.6-2.3) mg/dL Lactate Dehydrogenase (313-618) U/L Total Protein (6.3-8.2) g/dL Albumin (3.5-5.0) g/dL 09/07/20 09/08/20 09/08/20 Range/Units 23:25 00:47 02:06 WBC (3.8-10.6) k/uL RBC (4.30-5.90) m/uL Hgb (13.0-17.5) gm/dL Hct (39.0-53.0) % RDW (11.5-15.5) % Plt Count (150-450) k/uL Blast Cells % % Lymphocytes # (Manual) (1.0-4.8) k/uL Metamyelocytes # (Man) (0) k/uL Myelocytes # (Manual) (0) k/uL Blast Cells # (Man) (0) k/uL PT (9.0-12.0) sec INR (<1.2) APTT (22.0-30.0) sec Fibrinogen (200-500) mg/dL D-Dimer (<0.60) mg/L FEU ABG pH (7.35-7.45) ABG pCO2 (35-45) mmHg ABG HCO3 (21-25) mmol/L ABG O2 Saturation (94-97) % Chloride (98-107) mmol/L Carbon Dioxide (22-30) mmol/L BUN (9-20) mg/dL Glucose (74-99) mg/dL POC Glucose (mg/dL) 204 H 184 H 164 H (75-99) mg/dL Uric Acid (3.5-8.5) mg/dL Calcium (8.4-10.2) mg/dL Magnesium (1.6-2.3) mg/dL Lactate Dehydrogenase (313-618) U/L Total Protein (6.3-8.2) g/dL Albumin (3.5-5.0) g/dL 09/08/20 09/08/20 09/08/20 Range/Units 04:06 04:10 04:10 WBC 11.8 H (3.8-10.6) k/uL RBC 2.72 L (4.30-5.90) m/uL Hgb 9.0 L D (13.0-17.5) gm/dL Hct 24.8 L (39.0-53.0) % RDW 19.8 H (11.5-15.5) % Plt Count 35 L (150-450) k/uL Blast Cells % 20 H* % Lymphocytes # (Manual) 0.83 L (1.0-4.8) k/uL Metamyelocytes # (Man) 0.35 H (0) k/uL Myelocytes # (Manual) 0.24 H (0) k/uL Blast Cells # (Man) 2.36 H (0) k/uL PT 12.7 H (9.0-12.0) sec INR 1.3 H (<1.2) APTT 21.2 L (22.0-30.0) sec Fibrinogen 74 L* (200-500) mg/dL D-Dimer 29.00 H (<0.60) mg/L FEU ABG pH (7.35-7.45) ABG pCO2 (35-45) mmHg ABG HCO3 (21-25) mmol/L ABG O2 Saturation (94-97) % Chloride (98-107) mmol/L Carbon Dioxide (22-30) mmol/L BUN (9-20) mg/dL Glucose (74-99) mg/dL POC Glucose (mg/dL) 156 H (75-99) mg/dL Uric Acid (3.5-8.5) mg/dL Calcium (8.4-10.2) mg/dL Magnesium (1.6-2.3) mg/dL Lactate Dehydrogenase (313-618) U/L Total Protein (6.3-8.2) g/dL Albumin (3.5-5.0) g/dL 09/08/20 09/08/20 09/08/20 Range/Units 04:10 06:25 07:42 WBC (3.8-10.6) k/uL RBC (4.30-5.90) m/uL Hgb (13.0-17.5) gm/dL Hct (39.0-53.0) % RDW (11.5-15.5) % Plt Count (150-450) k/uL Blast Cells % % Lymphocytes # (Manual) (1.0-4.8) k/uL Metamyelocytes # (Man) (0) k/uL Myelocytes # (Manual) (0) k/uL Blast Cells # (Man) (0) k/uL PT (9.0-12.0) sec INR (<1.2) APTT (22.0-30.0) sec Fibrinogen (200-500) mg/dL D-Dimer (<0.60) mg/L FEU ABG pH 7.47 H (7.35-7.45) ABG pCO2 27 L (35-45) mmHg ABG HCO3 19 L (21-25) mmol/L ABG O2 Saturation 97.1 H (94-97) % Chloride 121 H (98-107) mmol/L Carbon Dioxide 21 L (22-30) mmol/L BUN 43 H (9-20) mg/dL Glucose 153 H (74-99) mg/dL POC Glucose (mg/dL) 154 H (75-99) mg/dL Uric Acid 2.8 L (3.5-8.5) mg/dL Calcium 7.5 L (8.4-10.2) mg/dL Magnesium 2.6 H (1.6-2.3) mg/dL Lactate Dehydrogenase 6867 H (313-618) U/L Total Protein 4.6 L (6.3-8.2) g/dL Albumin 2.3 L (3.5-5.0) g/dL 09/08/20 09/08/20 09/08/20 Range/Units 08:24 10:00 11:00 WBC (3.8-10.6) k/uL RBC (4.30-5.90) m/uL Hgb (13.0-17.5) gm/dL Hct (39.0-53.0) % RDW (11.5-15.5) % Plt Count (150-450) k/uL Blast Cells % % Lymphocytes # (Manual) (1.0-4.8) k/uL Metamyelocytes # (Man) (0) k/uL Myelocytes # (Manual) (0) k/uL Blast Cells # (Man) (0) k/uL PT (9.0-12.0) sec INR (<1.2) APTT (22.0-30.0) sec Fibrinogen 138 L (200-500) mg/dL D-Dimer (<0.60) mg/L FEU ABG pH (7.35-7.45) ABG pCO2 (35-45) mmHg ABG HCO3 (21-25) mmol/L ABG O2 Saturation (94-97) % Chloride (98-107) mmol/L Carbon Dioxide (22-30) mmol/L BUN (9-20) mg/dL Glucose (74-99) mg/dL POC Glucose (mg/dL) 149 H 170 H (75-99) mg/dL Uric Acid (3.5-8.5) mg/dL Calcium (8.4-10.2) mg/dL Magnesium (1.6-2.3) mg/dL Lactate Dehydrogenase (313-618) U/L Total Protein (6.3-8.2) g/dL Albumin (3.5-5.0) g/dL 09/08/20 Range/Units 11:56 WBC (3.8-10.6) k/uL RBC (4.30-5.90) m/uL Hgb (13.0-17.5) gm/dL Hct (39.0-53.0) % RDW (11.5-15.5) % Plt Count (150-450) k/uL Blast Cells % % Lymphocytes # (Manual) (1.0-4.8) k/uL Metamyelocytes # (Man) (0) k/uL Myelocytes # (Manual) (0) k/uL Blast Cells # (Man) (0) k/uL PT (9.0-12.0) sec INR (<1.2) APTT (22.0-30.0) sec Fibrinogen (200-500) mg/dL D-Dimer (<0.60) mg/L FEU ABG pH (7.35-7.45) ABG pCO2 (35-45) mmHg ABG HCO3 (21-25) mmol/L ABG O2 Saturation (94-97) % Chloride (98-107) mmol/L Carbon Dioxide (22-30) mmol/L BUN (9-20) mg/dL Glucose (74-99) mg/dL POC Glucose (mg/dL) 173 H (75-99) mg/dL Uric Acid (3.5-8.5) mg/dL Calcium (8.4-10.2) mg/dL Magnesium (1.6-2.3) mg/dL Lactate Dehydrogenase (313-618) U/L Total Protein (6.3-8.2) g/dL Albumin (3.5-5.0) g/dL Microbiology - Last 24 Hours (Table) 09/06/20 11:16 Gram Stain - Preliminary Sputum Sputum Culture - Preliminary [place] albicans [place] glabrata 09/06/20 09:15 Blood Culture - Preliminary Blood No Growth after 48 hours 08/31/20 10:30 Acid Fast Bacilli Smear - Final Bronchial Washings - Random Acid Fast Bacilli Culture - Preliminary 09/06/20 09:05 Urine Culture - Final Urine,Catheterized 09/04/20 11:11 Blood Culture - Preliminary Blood No Growth after 72 hours Assessment and Plan Assessment: Acute lung injury secondary to a AML treatment regimens Sepsis, fever with leukocytosis, and no source of infection, possible respiratory 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 Continue with antibiotics as per infectious disease recommendation, continue with amiodarone, digoxin, Lopressor and Cardizem as per cardiology team. Pulmonary team are following the case closely for his management of his ventilation. Also patient on chemotherapy as per oncology team Labs and medication were reviewed.. Continue same treatment. Continue with symptomatic treatment. Resume home medication. Monitor lytes and vitals. DVT and GI prophylaxis. Further recommendations of the clinical course of the patient DVT prophylaxis: Not to calculation for thrombocytopenia heparin GI Prophylaxis: Pepcid or PPI Prognosis is guarded
--- NOTE | 2020-09-08 22:55 | PN ---
PROGRESS NOTE DATE OF SERVICE: 09/08/2020 REASON FOR FOLLOWUP: Pneumonia. INTERVAL HISTORY: The patient is currently afebrile. The patient is hemodynamically stable, not on pressor support. Patient's FiO2 is currently stable at 40%. No significant secretions through his ET or any diarrhea reported. Patient remains sedated on the vent. PHYSICAL EXAMINATION: Blood pressure 116/76, pulse 87, temperature 99.1. He is 92% on 40% FiO2. General description is an elderly male lying in bed in no distress. RESPIRATORY SYSTEM: Unlabored breathing with decreased breath sounds at the base. No wheeze. HEART: S1, S2. Regular rate and rhythm. ABDOMEN: Soft. No tenderness. LABS: Hemoglobin is 9 with a white count of 9.8. BUN of 43, creatinine 0.94. Sputum is [place]. DIAGNOSTIC IMPRESSION AND PLAN: Patient with a fever with acute respiratory failure which is multifactorial with a possible component of pneumonia. Patient's fever responded to addition of Zyvox; to continue along with Zosyn, though no resistant organism has been seen in the sputum. We will monitor his clinical course closely. MMODL / IJN: [id number] /
[2020-09-08 23:43] LABS: Glucose,Whole Blood 181 mg/dL (75-99)
[2020-09-09 02:04] LABS: Glucose,Whole Blood 161 mg/dL (75-99)
[2020-09-09] MEDS: INSULIN REGULAR 100 UNIT in SODIUM CHLORIDE 0.9% 100 ML IV SCH ×2 (02:14→12:57)
[2020-09-09] MEDS: DILTIAZEM 125 MG in SODIUM CHLORIDE 0.9% 100 ML IV SCH ×2 (03:20→12:56)
[2020-09-09] MEDS: SODIUM CHLORIDE 0.45% 1,000 ML IV SCH ×3 (03:27→20:14)
[2020-09-09 04:34] LABS: Anisocytosis Slight; HCT 22.3 % (39.0-53.0); HGB 7.8 gm/dL (13.0-17.5); MCH 32.5 pg (25.0-35.0); MCHC 35.1 g/dL (31.0-37.0); MCV 92.6 fL (80.0-100.0); Mean Platelet Volume 7.4; Poikilocytosis Slight; RBC 2.41 m/uL (4.30-5.90); RDW 19.5 % (11.5-15.5); WBC 13.1 k/uL (3.8-10.6)
[2020-09-09 04:37] LABS: Glucose,Whole Blood 152 mg/dL (75-99)
[2020-09-09 04:47] LABS: ALT 21 U/L (4-49); AST 41 U/L (17-59); African American GFR (CKD) >90 (>60 ml/min/1.73 sqM); Albumin 2.3 g/dL (3.5-5.0); Alkaline Phosphatase 52 U/L (38-126); Anion Gap 2 mmol/L; Blood Urea Nitrogen 41 mg/dL (9-20); Calcium 7.6 mg/dL (8.4-10.2); Carbon Dioxide 22 mmol/L (22-30); Chloride 121 mmol/L (98-107); Glucose 153 mg/dL (74-99); Magnesium 2.5 mg/dL (1.6-2.3); Non-African American GFR(CKD) 78 (>60 ml/min/1.73 sqM); Phosphorus 4.2 mg/dL (2.5-4.5); Sodium 145 mmol/L (137-145); Total Bilirubin 0.8 mg/dL (0.2-1.3); Total Protein 4.5 g/dL (6.3-8.2); Uric Acid 2.6 mg/dL (3.5-8.5)
[2020-09-09 04:52] LABS: Platelet Count 21 k/uL (150-450)
[2020-09-09 05:10] LABS: LDH 4256 U/L (313-618)
[2020-09-09] MEDS: DEXAMETHASONE SOD PHOSPHATE 4 MG/ML 1 ML VIAL IV SCH ×4 (05:29→23:37)
[2020-09-09 05:40] LABS: D-Dimer 16.09 mg/L FEU (<0.60); Partial Thromboplastin Time 22.6 sec (22.0-30.0)
[2020-09-09 06:20] LABS: Glucose,Whole Blood 152 mg/dL (75-99)
[2020-09-09 06:37] LABS: Band Neutrophils % 1 %; Blast Cells # (M) 0.52 k/uL (0); Lymphocytes # (M) 1.05 k/uL (1.0-4.8); Metamyelocytes # (M) 1.18 k/uL (0); Metamyelocytes % 9 %; Monocytes # (M) 0.39 k/uL (0-1.0); Myelocytes # (M) 1.83 k/uL (0); Myelocytes % 14 %; Neutrophils % (M) 63 %; Nucleated Red Blood Cells 0 /100 WBC (0-0); Promyelocytes # (M) 0.13 k/uL (0); Promyelocytes % 1 %; Total Cells Counted 200
[2020-09-09] MEDS: ACYCLOVIR SODIUM 1,000 MG in SODIUM CHLORIDE 0.9% 250 ML IVPB SCH ×3 (07:26→23:37)
[2020-09-09] MEDS: ANIDULAFUNGIN 100 MG in SODIUM CHLORIDE 0.9% 100 ML IVPB SCH (07:26)
[2020-09-09] MEDS: FUROSEMIDE 10 MG/ML 4 ML VIAL IV SCH (07:27)
[2020-09-09] MEDS: PANTOPRAZOLE 40 MG/10 ML VIAL IVP SCH ×2 (07:27→20:15)
[2020-09-09 08:12] LABS: Glucose,Whole Blood 146 mg/dL (75-99)
[2020-09-09 08:13] LABS: ABG Base Excess -3.9 mmol/L; ABG HCO3 21 mmol/L (21-25); ABG Oxygen Saturation 90.4 % (94-97); ABG PCO2 33 mmHg (35-45); ABG PH 7.41 (7.35-7.45); ABG PO2 60 mmHg (83-108); ABG TCO2 22 mmol/L (19-24)
[2020-09-09 08:17] LABS: Allen Test Performed? no
[2020-09-09] MEDS: METOPROLOL TARTRATE 50 MG TAB PO SCH ×3 (08:17→20:15)
[2020-09-09] MEDS: AMIODARONE 200 MG TAB PO SCH ×2 (08:17→20:15)
[2020-09-09] MEDS: GABAPENTIN 100 MG CAP PO SCH ×3 (08:17→20:15)
[2020-09-09] MEDS: CHLORHEXIDINE GLUCONATE 15 ML CUP MUCOUS MEM SCH ×2 (08:17→20:14)
[2020-09-09] MEDS: POTASSIUM CHLORIDE ER 20 MEQ TAB.ER PO SCH ×2 (08:17→20:15)
[2020-09-09] MEDS: TAMSULOSIN 0.4 MG CAP.ER.24H PO SCH ×2 (08:17→20:14)
[2020-09-09] MEDS: MAGNESIUM OXIDE 400 MG TAB PO SCH (08:18)
[2020-09-09] MEDS: DIGOXIN 250 MCG TAB PO SCH (08:18)
[2020-09-09] MEDS: SENNOSIDES 8.6 MG TAB PO SCH (08:18)
--- NOTE | 2020-09-09 08:25 | XR ---
EXAMINATION TYPE: XR chest 1V portable DATE OF EXAM: 09/09/2020 CLINICAL HISTORY: Shortness of breath. Follow-up. TECHNIQUE: Portable semiupright view of the chest COMPARISON: 09/08/2020 chest radiograph FINDINGS: Endotracheal tube distal tip near the level of the clavicular heads. Left internal jugular central venous catheter distal tip over the distal SVC. Enteric tube is difficult to visualize dista lly. Borderline thyromegaly. Small left pleural effusion redemonstrated. Right basilar airspace opaci ties mildly decreased versus 09/08/2020. No pneumothorax. IMPRESSION: Mildly improved aeration of the right lung base versus 09/08/2020.
[2020-09-09] MEDS: PIPERACILLIN-TAZOBACTAM 3.375 GM in SODIUM CHLORIDE 0.9% 100 ML IVPB SCH ×3 (08:48→23:37)
[2020-09-09] MEDS: LINEZOLID 600 MG in DEXTROSE/WATER 1 300ML.BAG IVPB SCH ×2 (08:49→20:15)
[2020-09-09] MEDS: HYDROmorphone 1 MG/ML 1 ML SYRINGE IVP PRN (09:52)
[2020-09-09 10:01] LABS: Glucose,Whole Blood 186 mg/dL (75-99)
--- NOTE | 2020-09-09 11:38 | P.PN ---
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 HE was treated with Zosyn and eraxis, pulmonary/critical care team on the case and then following the patient closely, as well as hematology and oncology team and he is receiving CPR pain with close monitoring of hematologic parameters. Also he is afebrile with RVR needing Cardizem drip, amiodarone and digoxin and beta barbara, cardiology on the case. Also he is on steroids. Carotid fever low-grade temperature today. He is also on insulin drip and blood pressure is low normal. 09/06/2020 Patient remains in the ICU intubated and sedated. Patient still spiking fever up to 1 or 2 today, could be due to sepsis versus his acute leukemic crisis. Infectious and hematology/oncology team on the case, Zosyn has been added to his antibiotic regimen by ID team, continue with acyclovir, Zyvox and Eraxis. Also oncology team continue with chemotherapy cytrarbine , while his blasts increased today to 47% compared to 30% yesterday also his WBC increased to 27 up to 32 today today. His platelets are 70 5K and hemoglobin stable at 7.4. Pulmonary on the team and they are considering a sedation holiday tomorrow Cardiology on the team and he still on Cardizem drip on the top of his beta barbara, digoxin and amiodarone, his rate is controlled, patient is not a candidate for anticoagulation due to his blood disease and Also on insulin drip and his sugars controlled. 09/07/2020 Patient remains in the ICU, intubated on mechanical ventilation and on critical condition, still receiving several drips including insulin drip, Cardizem drip and small dose of norepinephrine. Still on broad-spectrum antibiotics of Zosyn and Zyvox and is followed by several consultants He has bicytopenia with hemoglobin 6.4 and platelets 52, WBC is trending down slightly today to 15.2 K. He still have elevated blasts 37% but there are improvement. Patient was getting chemotherapy with cytarabine as per oncology and hematology team. Stepdaughter at bedside and I discussed the case with her and she understands the plan of care and the guarded prognosis 09/08/20 pt is still intubated , her underwent sedation holiday but could not be extubated yesterday he is still on cardizem drip at 15 mg/h, insulin drip 9 u/h, intravenous fluid at 55 ml/h, but epinephrine is stopped today his Hb is better today at 9 he remain on broad spectrum antibiotic and got cytarabine today per hematology/oncology team Prognosis remains guarded 09/09/2020 Patient is intubated and sedated in the ICU, pulmonary team are following the case closely for possible sedation holiday and management of the event. Patient is still getting chemotherapy with cytarabine today as per hematology/oncology team. WBC is 13.1 K, hemoglobin 7.8 and there are 4% blasts cells in the peripheral blood.platelets are significantly low at 20 1K.creatinine is normal and sugar is controlled. Feeding tube still in place and is running at a low rate. His aunt insulin drip at 9 units per hour, Cardizem drip at 10 mg per hour and IV fluids same as 55 L/h, no epinephrine and he got 1 dose of Lasix today. Review of systems: N/a Active Medications Generic Name Dose Route Start Last Admin Trade Name Freq PRN Reason Stop Dose Admin Acetaminophen 500 mg 09/03/20 18:58 09/06/20 08:15 Acetaminophen Tab 500 Mg Tab PO 500 mg Q4HR PRN Administration Fever and/ or Pain Hydrocodone Bitart/Acetaminophen 1 each 08/24/20 20:04 09/03/20 12:38 Hydrocodone/Apap 10-325mg 1 Each Tab PO 1 each QID PRN Administration Pain Al Hydroxide/Mg Hydroxide 30 ml 08/25/20 21:43 08/29/20 02:27 Mag Hydrox/Al Hydrox/Simeth 30 Ml Cup PO 30 ml Q4HR PRN Administration GI Upset Amiodarone HCl 200 mg 09/08/20 21:00 09/09/20 08:17 Amiodarone 200 Mg Tab PO 200 mg BID ANA Administration Atorvastatin Calcium 10 mg 08/24/20 21:00 09/08/20 20:41 Atorvastatin 10 Mg Tab PO 10 mg HS ANA Administration Chlorhexidine Gluconate 15 ml 08/30/20 21:00 09/09/20 08:17 Chlorhexidine Gluconate 15 Ml Cup MUCOUS MEM 15 ml BID ANA Administration Dexamethasone Sodium Phosphate 5 mg 08/30/20 14:49 09/09/20 05:29 Dexamethasone Sod Phosphate 4 Mg/Ml 1 Ml Vial IV 5 mg Q6HR ANA Administration Digoxin 250 mcg 09/03/20 09:00 09/09/20 08:18 Digoxin 250 Mcg Tab PO 250 mcg DAILY ANA Administration Furosemide 40 mg 09/01/20 09:00 09/09/20 07:27 Furosemide 10 Mg/Ml 4 Ml Vial IV 40 mg DAILY ANA Administration Gabapentin 100 mg 08/24/20 22:00 09/09/20 08:17 Gabapentin 100 Mg Cap PO 100 mg TID ANA Administration Hydromorphone HCl 1 mg 09/09/20 09:37 09/09/20 09:52 Hydromorphone 1 Mg/Ml 1 Ml Syringe IVP 1 mg Q3HR PRN Administration Pain Diltiazem HCl 125 mg/ Sodium 125 mls @ 10 mls/hr 08/29/20 00:30 09/09/20 03:20 Chloride IV 10 mg/hr .[id number] ANA 10 mls/hr Administration 10 MG/HR Propofol 1,000 mg/ IV Solution 100 mls @ 0 mls/hr 08/30/20 20:20 09/09/20 10:04 IV 40 mcg/kg/min .Q0M ANA 26.496 mls/hr Titration Protocol Titrate Insulin Human Regular 100 unit 101 mls @ 0 mls/hr 08/31/20 09:00 09/09/20 10:00 / Sodium Chloride IV 10 units/hr .Q0M ANA 10.1 mls/hr Titration Protocol Per Protocol Norepinephrine Bitartrate 32 250 mls @ 2.776 mls/hr 08/31/20 15:30 09/09/20 10:12 mg/ Sodium Chloride IV 0.08 mcg/kg/min .Q24H ANA 3.701 mls/hr Titration Protocol 0.06 MCG/KG/MIN Piperacillin Sod/Tazobactam 100 mls @ 25 mls/hr 09/03/20 16:00 09/09/20 08:48 Sod 3.375 gm/ Sodium Chloride IVPB 25 mls/hr Q8HR ANA Administration Acyclovir Sodium 1,000 mg/ 270 mls @ 270 mls/hr 09/04/20 16:00 09/09/20 07:26 Sodium Chloride IVPB 270 mls/hr Q8HR ANA Administration Anidulafungin 100 mg/ Sodium 100 mls @ 84 mls/hr 09/06/20 09:00 09/09/20 07:26 Chloride IVPB 84 mls/hr DAILY ANA Administration Sodium Chloride 1,000 mls @ 75 mls/hr 09/06/20 08:45 09/09/20 03:27 Saline 0.45% IV 75 mls/hr .[id number] ANA Administration Linezolid 600 mg/ IV Solution 300 mls @ 150 mls/hr 09/06/20 21:30 09/09/20 08:49 IVPB 150 mls/hr Q12HR ANA Administration Protocol Cytarabine 210 mg/ Sodium 1,010.5 mls @ 42.104 mls/hr 09/08/20 20:00 09/08/20 19:34 Chloride IV 09/09/20 19:59 42.104 mls/hr ONCE ONE Administration Insulin Human Regular 9.9 unit 08/31/20 10:25 Insulin Regular Bolus (From Drip Bag) 0.1 unit/kg (9.9 unit) 09/30/20 21:00 IV ONCE PRN Blood Sugar - High Magnesium Oxide 400 mg 08/28/20 09:00 09/09/20 08:18 Magnesium Oxide 400 Mg Tab PO Not Given DAILY ANA Metoprolol Tartrate 100 mg 08/29/20 16:00 09/09/20 08:17 Metoprolol Tartrate 50 Mg Tab PO 100 mg TID ANA Administration Miscellaneous Information 1 each 08/24/20 20:19 Potassium Replacement Protocol 1 Each Misc MISCELLANE DAILY PRN Per Protocol Protocol Miscellaneous Information 1 each 08/24/20 20:20 Magnesium Replacement Protocol 1 Each Misc MISCELLANE DAILY PRN Per Protocol Protocol Pantoprazole Sodium 40 mg 08/31/20 10:45 09/09/20 07:27 Pantoprazole 40 Mg/10 Ml Vial IVP 40 mg BID ANA Administration Potassium Chloride 20 meq 08/28/20 09:00 09/09/20 08:17 Potassium Chloride Er 20 Meq Tab.Er PO 20 meq BID ANA Administration Senna 8.6 mg 09/03/20 21:00 09/09/20 08:18 Sennosides 8.6 Mg Tab PO Not Given DAILY [facility] Tamsulosin HCl 0.4 mg 08/24/20 21:00 09/09/20 08:17 Tamsulosin 0.4 Mg Cap.Er.24h PO 0.4 mg BID ANA Administration Objective - Vital Signs Vital signs: Vital Signs Temp 99.0 F 09/09/20 08:00 Pulse 84 09/09/20 11:00 Resp 24 09/09/20 11:00 BP 106/65 09/09/20 09:30 Pulse Ox 92 L 09/09/20 11:00 Intake & Output 09/08/20 09/09/20 09/09/20 18:59 06:59 18:59 Intake Total 3026.879 2878.142 1812.599 Output Total 2175 1090 1625 Balance 826.254 9507.142 187.599 Weight 110.4 kg Intake: IV 1769 1622 1055 Acyclovir Sodium 1,000 mg 500 250 250 In Sodium Chloride 0.9% 250 ml @ 270 mls/hr IVPB Q8HR [facility] Rx#:[id number] Linezolid 600 mg In 250 300 300 Dextrose/Water 1 300ml. bag @ 150 mls/hr IVPB Q12HR [facility] Rx#:[id number] Normal Saline Pressure 69 72 30 Bag Piperacillin-Tazobactam 3 200 100 100 .375 gm In Sodium Chloride 0.9% 100 ml @ 25 mls/hr IVPB Q8HR [facility] Rx# :[id number] Sodium Chloride 0.45% 1, 750 900 375 000 ml @ 75 mls/hr IV . [id number] [facility] Rx#:[id number] Intake, IV Titration 522.879 761.142 515.599 Amount Anidulafungin 100 mg In 100 100 Sodium Chloride 0.9% 100 ml @ 84 mls/hr IVPB DAILY [facility] Rx#:[id number] Cytarabine/Pf 210 mg In 462 210 Sodium Chloride 0.9% 1, 000 ml @ 42.104 mls/hr IV ONCE ONE Rx#:[id number] Diltiazem 125 mg In 59.667 122.667 Sodium Chloride 0.9% 100 ml @ 10 MG/HR 10 mls/hr IV .[id number] [facility] Rx#: [id number] Insulin Regular 100 unit 122.177 76.659 38.178 In Sodium Chloride 0.9% 100 ml @ Per Protocol IV .Q0M [facility] Rx#:[id number] Norepinephrine 32 mg In 1.735 0.740 Sodium Chloride 0.9% 218 ml @ 0.06 MCG/KG/MIN 2. 776 mls/hr IV .Q24H [facility] Rx#:[id number] Ondansetron 16 mg In 50 Sodium Chloride 0.9% 50 ml @ 232 mls/hr IVPB ONCE ONE Rx#:[id number] propofoL 1,000 mg In 191.035 98.081 166.681 Empty Bag 1 bag @ Titrate IV .Q0M [facility] Rx#: [id number] Tube Feeding 405 405 162 Blood Product 100 Pooled Cryoprecipitate 100 Unit [id number] Other 230 90 80 Pooled Cryoprecipitate 50 Unit [id number] Output: Urine 2175 1090 1625 Other: Voiding Method Indwelling Catheter Indwelling Catheter Indwelling Catheter ABP, PAP, CO, CI - Last Documented Arterial Blood Pressure 86/51 - Exam -GENERAL: The patient is intubated and sedated HEENT: Pupils are round and equally reacting to light. EOMI. No scleral icterus. No conjunctival pallor. Normocephalic, atraumatic. No pharyngeal erythema. No thyromegaly. CARDIOVASCULAR: S1 and S2 present. No murmurs, rubs, or gallops. PULMONARY: Chest is clear to auscultation, no wheezing or crackles. ABDOMEN: Soft, nontender, nondistended, normoactive bowel sounds. No palpable organomegaly. MUSCULOSKELETAL: No joint swelling or deformity. -EXTREMITIES: No cyanosis, clubbing,. Mild bilateral pitting pedal edema. NEUROLOGICAL: Gross neurological examination did not reveal any focal deficits. SKIN: No rashes. no petechiae. - Labs CBC & Chem 7: 09/09/20 04:20 09/09/20 04:20 Labs: Abnormal Lab Results - Last 24 Hours (Table) 09/08/20 09/08/20 09/08/20 Range/Units 11:00 11:56 14:02 WBC (3.8-10.6) k/uL RBC (4.30-5.90) m/uL Hgb (13.0-17.5) gm/dL Hct (39.0-53.0) % RDW (11.5-15.5) % Plt Count (150-450) k/uL Blast Cells % % Neutrophils # (Manual) (1.3-7.7) k/uL Metamyelocytes # (Man) (0) k/uL Myelocytes # (Manual) (0) k/uL Promyelocytes # (Man) (0) k/uL Blast Cells # (Man) (0) k/uL Fibrinogen 138 L (200-500) mg/dL D-Dimer (<0.60) mg/L FEU ABG pCO2 (35-45) mmHg ABG pO2 (83-108) mmHg ABG O2 Saturation (94-97) % Chloride (98-107) mmol/L BUN (9-20) mg/dL Glucose (74-99) mg/dL POC Glucose (mg/dL) 173 H 154 H (75-99) mg/dL Uric Acid (3.5-8.5) mg/dL Calcium (8.4-10.2) mg/dL Magnesium (1.6-2.3) mg/dL Lactate Dehydrogenase (313-618) U/L Total Protein (6.3-8.2) g/dL Albumin (3.5-5.0) g/dL 09/08/20 09/08/20 09/08/20 Range/Units 16:12 17:29 18:29 WBC (3.8-10.6) k/uL RBC (4.30-5.90) m/uL Hgb (13.0-17.5) gm/dL Hct (39.0-53.0) % RDW (11.5-15.5) % Plt Count (150-450) k/uL Blast Cells % % Neutrophils # (Manual) (1.3-7.7) k/uL Metamyelocytes # (Man) (0) k/uL Myelocytes # (Manual) (0) k/uL Promyelocytes # (Man) (0) k/uL Blast Cells # (Man) (0) k/uL Fibrinogen (200-500) mg/dL D-Dimer (<0.60) mg/L FEU ABG pCO2 (35-45) mmHg ABG pO2 (83-108) mmHg ABG O2 Saturation (94-97) % Chloride (98-107) mmol/L BUN (9-20) mg/dL Glucose (74-99) mg/dL POC Glucose (mg/dL) 137 H 142 H 135 H (75-99) mg/dL Uric Acid (3.5-8.5) mg/dL Calcium (8.4-10.2) mg/dL Magnesium (1.6-2.3) mg/dL Lactate Dehydrogenase (313-618) U/L Total Protein (6.3-8.2) g/dL Albumin (3.5-5.0) g/dL 09/08/20 09/08/20 09/08/20 Range/Units 19:14 20:07 22:10 WBC (3.8-10.6) k/uL RBC (4.30-5.90) m/uL Hgb (13.0-17.5) gm/dL Hct (39.0-53.0) % RDW (11.5-15.5) % Plt Count (150-450) k/uL Blast Cells % % Neutrophils # (Manual) (1.3-7.7) k/uL Metamyelocytes # (Man) (0) k/uL Myelocytes # (Manual) (0) k/uL Promyelocytes # (Man) (0) k/uL Blast Cells # (Man) (0) k/uL Fibrinogen (200-500) mg/dL D-Dimer (<0.60) mg/L FEU ABG pCO2 (35-45) mmHg ABG pO2 (83-108) mmHg ABG O2 Saturation (94-97) % Chloride (98-107) mmol/L BUN (9-20) mg/dL Glucose (74-99) mg/dL POC Glucose (mg/dL) 138 H 173 H 226 H (75-99) mg/dL Uric Acid (3.5-8.5) mg/dL Calcium (8.4-10.2) mg/dL Magnesium (1.6-2.3) mg/dL Lactate Dehydrogenase (313-618) U/L Total Protein (6.3-8.2) g/dL Albumin (3.5-5.0) g/dL 09/08/20 09/09/20 09/09/20 Range/Units 23:41 02:03 04:20 WBC 13.1 H (3.8-10.6) k/uL RBC 2.41 L (4.30-5.90) m/uL Hgb 7.8 L (13.0-17.5) gm/dL Hct 22.3 L (39.0-53.0) % RDW 19.5 H (11.5-15.5) % Plt Count 21 L (150-450) k/uL Blast Cells % 4 H* % Neutrophils # (Manual) 8.30 H (1.3-7.7) k/uL Metamyelocytes # (Man) 1.18 H (0) k/uL Myelocytes # (Manual) 1.83 H (0) k/uL Promyelocytes # (Man) 0.13 H (0) k/uL Blast Cells # (Man) 0.52 H (0) k/uL Fibrinogen (200-500) mg/dL D-Dimer (<0.60) mg/L FEU ABG pCO2 (35-45) mmHg ABG pO2 (83-108) mmHg ABG O2 Saturation (94-97) % Chloride (98-107) mmol/L BUN (9-20) mg/dL Glucose (74-99) mg/dL POC Glucose (mg/dL) 181 H 161 H (75-99) mg/dL Uric Acid (3.5-8.5) mg/dL Calcium (8.4-10.2) mg/dL Magnesium (1.6-2.3) mg/dL Lactate Dehydrogenase (313-618) U/L Total Protein (6.3-8.2) g/dL Albumin (3.5-5.0) g/dL 09/09/20 09/09/20 09/09/20 Range/Units 04:20 04:20 04:35 WBC (3.8-10.6) k/uL RBC (4.30-5.90) m/uL Hgb (13.0-17.5) gm/dL Hct (39.0-53.0) % RDW (11.5-15.5) % Plt Count (150-450) k/uL Blast Cells % % Neutrophils # (Manual) (1.3-7.7) k/uL Metamyelocytes # (Man) (0) k/uL Myelocytes # (Manual) (0) k/uL Promyelocytes # (Man) (0) k/uL Blast Cells # (Man) (0) k/uL Fibrinogen 78 L* (200-500) mg/dL D-Dimer 16.09 H (<0.60) mg/L FEU ABG pCO2 (35-45) mmHg ABG pO2 (83-108) mmHg ABG O2 Saturation (94-97) % Chloride 121 H (98-107) mmol/L BUN 41 H (9-20) mg/dL Glucose 153 H (74-99) mg/dL POC Glucose (mg/dL) 152 H (75-99) mg/dL Uric Acid 2.6 L (3.5-8.5) mg/dL Calcium 7.6 L (8.4-10.2) mg/dL Magnesium 2.5 H (1.6-2.3) mg/dL Lactate Dehydrogenase 4256 H (313-618) U/L Total Protein 4.5 L (6.3-8.2) g/dL Albumin 2.3 L (3.5-5.0) g/dL 09/09/20 09/09/20 09/09/20 Range/Units 06:18 08:09 08:11 WBC (3.8-10.6) k/uL RBC (4.30-5.90) m/uL Hgb (13.0-17.5) gm/dL Hct (39.0-53.0) % RDW (11.5-15.5) % Plt Count (150-450) k/uL Blast Cells % % Neutrophils # (Manual) (1.3-7.7) k/uL Metamyelocytes # (Man) (0) k/uL Myelocytes # (Manual) (0) k/uL Promyelocytes # (Man) (0) k/uL Blast Cells # (Man) (0) k/uL Fibrinogen (200-500) mg/dL D-Dimer (<0.60) mg/L FEU ABG pCO2 33 L (35-45) mmHg ABG pO2 60 L (83-108) mmHg ABG O2 Saturation 90.4 L (94-97) % Chloride (98-107) mmol/L BUN (9-20) mg/dL Glucose (74-99) mg/dL POC Glucose (mg/dL) 152 H 146 H (75-99) mg/dL Uric Acid (3.5-8.5) mg/dL Calcium (8.4-10.2) mg/dL Magnesium (1.6-2.3) mg/dL Lactate Dehydrogenase (313-618) U/L Total Protein (6.3-8.2) g/dL Albumin (3.5-5.0) g/dL 09/09/20 Range/Units 09:59 WBC (3.8-10.6) k/uL RBC (4.30-5.90) m/uL Hgb (13.0-17.5) gm/dL Hct (39.0-53.0) % RDW (11.5-15.5) % Plt Count (150-450) k/uL Blast Cells % % Neutrophils # (Manual) (1.3-7.7) k/uL Metamyelocytes # (Man) (0) k/uL Myelocytes # (Manual) (0) k/uL Promyelocytes # (Man) (0) k/uL Blast Cells # (Man) (0) k/uL Fibrinogen (200-500) mg/dL D-Dimer (<0.60) mg/L FEU ABG pCO2 (35-45) mmHg ABG pO2 (83-108) mmHg ABG O2 Saturation (94-97) % Chloride (98-107) mmol/L BUN (9-20) mg/dL Glucose (74-99) mg/dL POC Glucose (mg/dL) 186 H (75-99) mg/dL Uric Acid (3.5-8.5) mg/dL Calcium (8.4-10.2) mg/dL Magnesium (1.6-2.3) mg/dL Lactate Dehydrogenase (313-618) U/L Total Protein (6.3-8.2) g/dL Albumin (3.5-5.0) g/dL Microbiology - Last 24 Hours (Table) 09/06/20 09:15 Blood Culture - Preliminary Blood No Growth after 72 hours 09/06/20 11:16 Gram Stain - Final Sputum Sputum Culture - Final Virginia albicans Virginia glabrata 09/04/20 11:11 Blood Culture - Preliminary Blood No Growth after 96 hours Assessment and Plan Assessment: Acute lung injury secondary to a AML treatment regimens Sepsis, fever with leukocytosis, and no source of infection, possible respiratory 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 Continue with antibiotics as per i nfectious disease recommendation, continue with amiodarone, digoxin, Lopressor and Cardizem as per cardiology team. Pulmonary team are following the case closely for his management of his ventilation. Also patient on chemotherapy as per oncology team Labs and medication were reviewed.. Continue same treatment. Continue with symptomatic treatment. Resume home medication. Monitor lytes and vitals. DVT and GI prophylaxis. Further recommendations of the clinical course of the patient DVT prophylaxis: Not to calculation for thrombocytopenia heparin GI Prophylaxis: Pepcid or PPI Prognosis is guarded
[2020-09-09 11:52] LABS: INR 1.3 (<1.2)
[2020-09-09 12:01] LABS: Glucose,Whole Blood 162 mg/dL (75-99)
--- NOTE | 2020-09-09 12:41 | P.PN ---
Subjective This is a pleasant 75-year-old male currently undergoing chemotherapy. He is in the intensive care unit intubated on IV sedation. Cardizem has been decreased to 10 mg. Blood rpessure 103/67 heart rates in the 90s in persistent atrial flutter. Heart rates today remain under 100, cardizem infusion has been titrated down to 10 mg. He continues to be sedation. Blood pressure 117/57 heart rate 88 afebrile maintaining oxygen saturation on mechanical ventilation. Laboratory data reviewed, pH 7.41, pCO2 33, pO2 60 bicarb 21, INR 1.3, WBC 13.1, hemoglobin 7.8, platelets 21, blast cells percent 4, d-dimer 16.0, sodium 145, potassium 4.0, creatinine 0.96. GENERAL: No acute distress. NECK: Supple without JVD or thyromegaly. LUNGS: Clear to auscultation bilaterally. No rales, wheezes or rhonchi Respiration equal and unlabored. Diminished. HEART: Irregular rate and rhythm with systolic ejection murmur at the base, no rubs or gallops. S1 and S2 heard. EXTREMITIES: Normal range of motion, bilateral lower extremity trace pitting edema. No clubbing or cyanosis. Peripheral pulses intact. ASSESSMENT Paroxysmal atrial fibrillation/atrial flutter with rapid ventricular response. Status post cardioversion 2017 Acute on chronic diastolic heart failure on admission Acute systolic heart failure with evidence of possible takotsubo Aortic stenosis Hypertension Dyslipidemia Diabetes mellitus Anemia, requiring blood transfusion PLAN Continue current medical regimen. Prognosis guarded, further recommendations to follow. Nurse Practitioner note has been reviewed, I agree with a documented findings and plan of care. Patient was seen and examined. Objective - Vital Signs Vital signs: Vital Signs Temp 99.0 F 09/09/20 08:00 Pulse 83 09/09/20 09:00 Resp 24 09/09/20 09:00 BP 107/80 09/09/20 09:00 Pulse Ox 88 L 09/09/20 09:00 Intake & Output 09/08/20 09/09/20 09/09/20 18:59 06:59 18:59 Intake Total 3026.879 2878.142 1460.433 Output Total 2175 1090 1150 Balance 526.188 5312.142 310.433 Weight 110.4 kg Intake: IV 1769 1622 893 Acyclovir Sodium 1,000 mg 500 250 250 In Sodium Chloride 0.9% 250 ml @ 270 mls/hr IVPB Q8HR [facility] Rx#:[id number] Linezolid 600 mg In 250 300 300 Dextrose/Water 1 300ml. bag @ 150 mls/hr IVPB Q12HR [facility] Rx#:[id number] Normal Saline Pressure 69 72 18 Bag Piperacillin-Tazobactam 3 200 100 100 .375 gm In Sodium Chloride 0.9% 100 ml @ 25 mls/hr IVPB Q8HR [facility] Rx# :[id number] Sodium Chloride 0.45% 1, 750 900 225 000 ml @ 75 mls/hr IV . [id number] [facility] Rx#:[id number] Intake, IV Titration 522.879 761.142 379.433 Amount Anidulafungin 100 mg In 100 100 Sodium Chloride 0.9% 100 ml @ 84 mls/hr IVPB DAILY [facility] Rx#:[id number] Cytarabine/Pf 210 mg In 462 126 Sodium Chloride 0.9% 1, 000 ml @ 42.104 mls/hr IV ONCE ONE Rx#:[id number] Diltiazem 125 mg In 59.667 122.667 Sodium Chloride 0.9% 100 ml @ 10 MG/HR 10 mls/hr IV .[id number] [facility] Rx#: [id number] Insulin Regular 100 unit 122.177 76.659 In Sodium Chloride 0.9% 100 ml @ Per Protocol IV .Q0M [facility] Rx#:[id number] Norepinephrine 32 mg In 1.735 Sodium Chloride 0.9% 218 ml @ 0.06 MCG/KG/MIN 2. 776 mls/hr IV .Q24H [facility] Rx#:[id number] Ondansetron 16 mg In 50 Sodium Chloride 0.9% 50 ml @ 232 mls/hr IVPB ONCE ONE Rx#:[id number] propofoL 1,000 mg In 191.035 98.081 153.433 Empty Bag 1 bag @ Titrate IV .Q0M [facility] Rx#: [id number] Tube Feeding 405 405 108 Blood Product 100 Pooled Cryoprecipitate 100 Unit [id number] Other 230 90 80 Pooled Cryoprecipitate 50 Unit [id number] Output: Urine 2175 1090 1150 Other: Voiding Method Indwelling Catheter Indwelling Catheter ABP, PAP, CO, CI - Last Documented Arterial Blood Pressure 95/71 - Labs CBC & Chem 7: 09/09/20 04:20 09/09/20 04:20 Labs: Abnormal Lab Results - Last 24 Hours (Table) 09/08/20 09/08/20 09/08/20 Range/Units 10:00 11:00 11:56 WBC (3.8-10.6) k/uL RBC (4.30-5.90) m/uL Hgb (13.0-17.5) gm/dL Hct (39.0-53.0) % RDW (11.5-15.5) % Plt Count (150-450) k/uL Blast Cells % % Neutrophils # (Manual) (1.3-7.7) k/uL Metamyelocytes # (Man) (0) k/uL Myelocytes # (Manual) (0) k/uL Promyelocytes # (Man) (0) k/uL Blast Cells # (Man) (0) k/uL Fibrinogen 138 L (200-500) mg/dL D-Dimer (<0.60) mg/L FEU ABG pCO2 (35-45) mmHg ABG pO2 (83-108) mmHg ABG O2 Saturation (94-97) % Chloride (98-107) mmol/L BUN (9-20) mg/dL Glucose (74-99) mg/dL POC Glucose (mg/dL) 170 H 173 H (75-99) mg/dL Uric Acid (3.5-8.5) mg/dL Calcium (8.4-10.2) mg/dL Magnesium (1.6-2.3) mg/dL Lactate Dehydrogenase (313-618) U/L Total Protein (6.3-8.2) g/dL Albumin (3.5-5.0) g/dL 09/08/20 09/08/20 09/08/20 Range/Units 14:02 16:12 17:29 WBC (3.8-10.6) k/uL RBC (4.30-5.90) m/uL Hgb (13.0-17.5) gm/dL Hct (39.0-53.0) % RDW (11.5-15.5) % Plt Count (150-450) k/uL Blast Cells % % Neutrophils # (Manual) (1.3-7.7) k/uL Metamyelocytes # (Man) (0) k/uL Myelocytes # (Manual) (0) k/uL Promyelocytes # (Man) (0) k/uL Blast Cells # (Man) (0) k/uL Fibrinogen (200-500) mg/dL D-Dimer (<0.60) mg/L FEU ABG pCO2 (35-45) mmHg ABG pO2 (83-108) mmHg ABG O2 Saturation (94-97) % Chloride (98-107) mmol/L BUN (9-20) mg/dL Glucose (74-99) mg/dL POC Glucose (mg/dL) 154 H 137 H 142 H (75-99) mg/dL Uric Acid (3.5-8.5) mg/dL Calcium (8.4-10.2) mg/dL Magnesium (1.6-2.3) mg/dL Lactate Dehydrogenase (313-618) U/L Total Protein (6.3-8.2) g/dL Albumin (3.5-5.0) g/dL 09/08/20 09/08/20 09/08/20 Range/Units 18:29 19:14 20:07 WBC (3.8-10.6) k/uL RBC (4.30-5.90) m/uL Hgb (13.0-17.5) gm/dL Hct (39.0-53.0) % RDW (11.5-15.5) % Plt Count (150-450) k/uL Blast Cells % % Neutrophils # (Manual) (1.3-7.7) k/uL Metamyelocytes # (Man) (0) k/uL Myelocytes # (Manual) (0) k/uL Promyelocytes # (Man) (0) k/uL Blast Cells # (Man) (0) k/uL Fibrinogen (200-500) mg/dL D-Dimer (<0.60) mg/L FEU ABG pCO2 (35-45) mmHg ABG pO2 (83-108) mmHg ABG O2 Saturation (94-97) % Chloride (98-107) mmol/L BUN (9-20) mg/dL Glucose (74-99) mg/dL POC Glucose (mg/dL) 135 H 138 H 173 H (75-99) mg/dL Uric Acid (3.5-8.5) mg/dL Calcium (8.4-10.2) mg/dL Magnesium (1.6-2.3) mg/dL Lactate Dehydrogenase (313-618) U/L Total Protein (6.3-8.2) g/dL Albumin (3.5-5.0) g/dL 09/08/20 09/08/20 09/09/20 Range/Units 22:10 23:41 02:03 WBC (3.8-10.6) k/uL RBC (4.30-5.90) m/uL Hgb (13.0-17.5) gm/dL Hct (39.0-53.0) % RDW (11.5-15.5) % Plt Count (150-450) k/uL Blast Cells % % Neutrophils # (Manual) (1.3-7.7) k/uL Metamyelocytes # (Man) (0) k/uL Myelocytes # (Manual) (0) k/uL Promyelocytes # (Man) (0) k/uL Blast Cells # (Man) (0) k/uL Fibrinogen (200-500) mg/dL D-Dimer (<0.60) mg/L FEU ABG pCO2 (35-45) mmHg ABG pO2 (83-108) mmHg ABG O2 Saturation (94-97) % Chloride (98-107) mmol/L BUN (9-20) mg/dL Glucose (74-99) mg/dL POC Glucose (mg/dL) 226 H 181 H 161 H (75-99) mg/dL Uric Acid (3.5-8.5) mg/dL Calcium (8.4-10.2) mg/dL Magnesium (1.6-2.3) mg/dL Lactate Dehydrogenase (313-618) U/L Total Protein (6.3-8.2) g/dL Albumin (3.5-5.0) g/dL 09/09/20 09/09/20 09/09/20 Range/Units 04:20 04:20 04:20 WBC 13.1 H (3.8-10.6) k/uL RBC 2.41 L (4.30-5.90) m/uL Hgb 7.8 L (13.0-17.5) gm/dL Hct 22.3 L (39.0-53.0) % RDW 19.5 H (11.5-15.5) % Plt Count 21 L (150-450) k/uL Blast Cells % 4 H* % Neutrophils # (Manual) 8.30 H (1.3-7.7) k/uL Metamyelocytes # (Man) 1.18 H (0) k/uL Myelocytes # (Manual) 1.83 H (0) k/uL Promyelocytes # (Man) 0.13 H (0) k/uL Blast Cells # (Man) 0.52 H (0) k/uL Fibrinogen 78 L* (200-500) mg/dL D-Dimer 16.09 H (<0.60) mg/L FEU ABG pCO2 (35-45) mmHg ABG pO2 (83-108) mmHg ABG O2 Saturation (94-97) % Chloride 121 H (98-107) mmol/L BUN 41 H (9-20) mg/dL Glucose 153 H (74-99) mg/dL POC Glucose (mg/dL) (75-99) mg/dL Uric Acid 2.6 L (3.5-8.5) mg/dL Calcium 7.6 L (8.4-10.2) mg/dL Magnesium 2.5 H (1.6-2.3) mg/dL Lactate Dehydrogenase 4256 H (313-618) U/L Total Protein 4.5 L (6.3-8.2) g/dL Albumin 2.3 L (3.5-5.0) g/dL 09/09/20 09/09/20 09/09/20 Range/Units 04:35 06:18 08:09 WBC (3.8-10.6) k/uL RBC (4.30-5.90) m/uL Hgb (13.0-17.5) gm/dL Hct (39.0-53.0) % RDW (11.5-15.5) % Plt Count (150-450) k/uL Blast Cells % % Neutrophils # (Manual) (1.3-7.7) k/uL Metamyelocytes # (Man) (0) k/uL Myelocytes # (Manual) (0) k/uL Promyelocytes # (Man) (0) k/uL Blast Cells # (Man) (0) k/uL Fibrinogen (200-500) mg/dL D-Dimer (<0.60) mg/L FEU ABG pCO2 33 L (35-45) mmHg ABG pO2 60 L (83-108) mmHg ABG O2 Saturation 90.4 L (94-97) % Chloride (98-107) mmol/L BUN (9-20) mg/dL Glucose (74-99) mg/dL POC Glucose (mg/dL) 152 H 152 H (75-99) mg/dL Uric Acid (3.5-8.5) mg/dL Calcium (8.4-10.2) mg/dL Magnesium (1.6-2.3) mg/dL Lactate Dehydrogenase (313-618) U/L Total Protein (6.3-8.2) g/dL Albumin (3.5-5.0) g/dL 09/09/20 Range/Units 08:11 WBC (3.8-10.6) k/uL RBC (4.30-5.90) m/uL Hgb (13.0-17.5) gm/dL Hct (39.0-53.0) % RDW (11.5-15.5) % Plt Count (150-450) k/uL Blast Cells % % Neutrophils # (Manual) (1.3-7.7) k/uL Metamyelocytes # (Man) (0) k/uL Myelocytes # (Manual) (0) k/uL Promyelocytes # (Man) (0) k/uL Blast Cells # (Man) (0) k/uL Fibrinogen (200-500) mg/dL D-Dimer (<0.60) mg/L FEU ABG pCO2 (35-45) mmHg ABG pO2 (83-108) mmHg ABG O2 Saturation (94-97) % Chloride (98-107) mmol/L BUN (9-20) mg/dL Glucose (74-99) mg/dL POC Glucose (mg/dL) 146 H (75-99) mg/dL Uric Acid (3.5-8.5) mg/dL Calcium (8.4-10.2) mg/dL Magnesium (1.6-2.3) mg/dL Lactate Dehydrogenase (313-618) U/L Total Protein (6.3-8.2) g/dL Albumin (3.5-5.0) g/dL Microbiology - Last 24 Hours (Table) 09/06/20 11:16 Gram Stain - Final Sputum Sputum Culture - Final [place] albicans [place] glabrata 09/04/20 11:11 Blood Culture - Preliminary Blood No Growth after 96 hours 09/06/20 09:15 Blood Culture - Preliminary Blood No Growth after 48 hours
--- NOTE | 2020-09-09 13:42 | P.PN ---
Subjective Progress Note Date: 09/09/20 Principal diagnosis: Acute hypoxic respiratory failure with bilateral pneumonia in immunocompromised host. 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 The patient got transferred to the intensive care unit yesterday because of an acute hypoxic respiratory failure/acute lung injury with development of bilateral pulmonary infiltrates. Note that the patient was originally hospitalized on 08/24/2024 shortness of breath and difficulty breathing. The patient is known to have chronic atrial fibrillation along with hypertension and hyperlipidemia. He was also being seen by cardiology regarding atrial fibrillation. As the patient developed breath and pulmonary infiltrates and acute hypoxic respiratory failure, the patient a chest to the intensive care unit and he was placed on a BiPAP at a pressure of 14/5 cm of water. FiO2 was as high as 90% and it was being titrated. The patient also had been placed on broad-spectrum antibiotics including IV Zosyn. He was being diuresis with IV Lasix 40 mg every 12 hours. He was on a Cardizem drip at 15 mg an hour to control atrial fibrillation. Remains on Decadron 5 mg IV every 6 hours. The chest x-ray as mentioned shows interval development of bilateral perihilar pulmonary infiltrates which are currently diffuse. The patient demonstrated gradual improvement in the white cell count from a baseline of 0.7 up to 20 and the platelet count is up to 79 with a hemoglobin of 8.0. The patient did not receive any packed RBC transfusions. The differential count shows 46% blasts. Renal function is impaired in the creatinine is 1.47 as the patient is being diuresed. Uric acid level is up to 8.9 with a calcium level of 8.3 and phosphorus level of 5.8 and LDH level was as high as 5244 indicating the possibility of a tumor lysis syndrome. Based on that, the patient was given a dose of respirator he carries yesterday and urine acid level is improved considerably. The echo from last month showed a preserved LV function with an ejection fraction of 6065%. The patient has mild MR, RV is mildly enlarged. Note that the patient over progressively more short of breath and hypoxic. At point, the patient was intubated and placed on a mechanical ventilator. I saw this patient this morning. The patient was already intubated on a mechanical ventilator on assist control mode with a rate of 24 with a tidal volume of 450 and FiO2 of 50% with a PEEP of 10. The blood gas showed a pH of 7.42 with a pCO2 of 40 and pO2 of 104. This was on FiO2 of 60%. The patient was sedated with propofol running at 75 mg per KG per minute. The patient is also on insulin at 5 units an hour for blood sugar control. The patient is on norepinephrine infusion at 0.06 units per KG per minute. Cardizem drip is running at 50 mg an hour in regards to her atrial fibrillation. The heart rate is in the order of 110-120. He is afebrile. Chest x-rays showing bilateral pulmonary infiltrates, stable compared to yesterday. immediately a bronchoscopy was done and the bronchioloalveolar lavage of the right middle lobe was collected as there was a concern of an underlying infection. The patient is currently on IV Zosyn. Lasix was discontinued. On 09/01/2020, the patient is being seen in follow-up in the intensive care unit. The patient remains intubated on a mechanical ventilator. This morning the patient is sedated with propofol at the rate of 45 g per KG per minute. The patient remains on mechanical ventilator on assist control mode at the rate of 24 with a tidal volume of 450 and FiO2 of 40% with a PEEP of 10. Blood gases from today showed a pH of 7.44 with a pCO2 of 38 and pO2 of 152. Chest x-ray still showing diffuse bilateral pulmonary infiltrates slightly improved compared to yesterday. Oxidation is also improved. Based on that, I made recommendation s to gradually wean off the PEEP down to 5 cm of water. The patient unfortunately continues to be in atrial fibrillation. The patient is not adequately controlled. The patient is on a Cardizem drip at 15 mg an hour. The patient is also on amiodarone 0.5 mg an hour and the patient is also on meto prolol 100 mg by mouth 3 times a day. The patient is being supported with norepinephrine infusion for blood pressure support at the rate of 0.06 mg per KG per minute. The patient is afebrile. The patient is currently on IV Zosyn. The patient's bronchoscopy and the bronchioloalveolar lavage was done yesterday and the patient does not have any possible microbial growth for now. No fever. No chills. He is receiving daily Lasix 40 mg IV push to maintain adequate fluid balance. In terms of hematologic profile, the white cell count is up to 28 and the patient has 12% blast cells. The platelet count is at 96 with a hemoglobin of 7.3. The patient is currently on Hydrea the patient is also on Decadron. Discussed the case with oncology. We will hold off the ATRA treatment as the patient has gone into differentiation syndrome. On 09/02/2020, I'm seeing the patient for a follow-up in the intensive care unit. The patient remains intubated on a mechanical ventilator. This morning the patient remains on propofol at 50 g per KG per minute. The patient is also on a mechanical ventilator at the rate of 24 with a tidal volume of 450 and FiO2 of 40% with a PEEP of 5. Chest x-ray is showing stable bilateral pulmonary infiltrates without any major change compared to yesterday. Meanwhile the blood gases from today showed a pH of 7.47 with a pCO2 of 34 and pO2 of 110. The patient remains in atrial fibrillation on obviously it has been very difficult to control the rate. He is not a candidate for cardioversion and the patient cannot take any anticoagulants. 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 In terms of his A. 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 Digoxin was also added by cardiology. Heart rate is ranging between 110 and 130, irregular. He is afebrile. He is covered with Zosyn. The bronchoscopy and bronchial alveolar lavage done earlier yielded no microbial growth. The patient remains on Decadron. The patient remains on Hydrea. LDH is on the rise. White cell count today is at 26.4. Platelet count is at 91. The patient is 54% blasts and off and sleepy is a sign of progression of his underlying AML. The BUN is at 53 with a creatinine of 1.05. The patient was given daily Lasix and the patient's fluid balance has been +7 40 mL over the past 24 hours. The patient is on enteral feeding for nutritional support. The patient is well sedated. A sedation holiday was given today. He was taken off the propofol and subsequently became more tachycardic and restless and asynchronous with a mechanical ventilator and the procedure had to be aborted and the patient was p laced back on sedation. On 09/03/2020, seeing this patient for a follow-up in the intensive care unit and the patient is doing poorly. The patient remains sedated on a mechanical ventilator. The patient is on propofol infusion running at 60 g per KG per minute. The patient is on a mechanical ventilator session the same vent setting is yesterday with a rate of 24 with a tidal volume of 450 and FiO2 of 40% with a PEEP of 5. The blood gases showed a pH of 7.49 with a pCO2 of 33 and pO2 of 94. Chest x-ray findings are essentially stable. Nevertheless, the patient continues to be in atrial fibrillation with a rapid ventricular response and has been very difficult to control his heart rate. He is currently on a combination of Cardizem drip at 15 mg an hour and addition to amiodarone drip at 0.5 mg per minute and metoprolol at a dose of 100 mg by mouth 3 times a day. He is also on digoxin 0.25 mg on a daily basis. The patient is still having A. fib RVR despite this ongoing treatment for rate control. His heart rate is ranging between 120 and 160, irregular and the patient is also requiring norepinephrine infusion for blood pressure control and the patient is currently on levo fed running at 7 g per minute. Cardiology is on the case and the patient will not be cardioverted based on our ability to provide him any anticoagulants at the time of cardioversion. Hematologically, he is still in acute leukemic crisis. The patient platelet count is at 106. The patient has a 57% blasts. LDH pulses on the rise the patient has a BUN of 50 with a creatinine of 1.0. Uric acid is up to 2.4. Bilirubin is at 0.9, AST slightly elevated at 104. The patient was given Hydrea by hematology oncology at were unable to give him because of our inability to crushed medication. He is on Decadron 5 mg every 6 hours. The patient is afebrile. The patient on IV Zosyn. The bronchioloalveolar lavage was negative. Chest x-ray findings are stable. The neck fluid balance is in order of 34 1 mL positive and the patient is receiving daily Lasix dose of 40 mg IV push. On 09/04/2020, the patient remains intubated on a mechanical ventilator. As stated earlier, the patient was started on systemic therapy with cytarabine and this was started last night. This morning, the patient assist-control mode of ventilation at the rate of 24 with a tidal volume of 500 and FiO2 of 50% and a PEEP of 5. The patient's is sedated with propofol. The patient was having bouts of fever overnight and the patient's had a T-max of 102.2. The patient was given Tylenol. Cultures were sent. Noted the bronchoscopy and the bronchioloalveolar lavage done earlier showed no evidence of any microbial growth. 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 The chest x-ray still showing some pains right infrahilar and more prominent left basilar infiltrate/atelectasis. No new infiltration seen.. The patient remains in atrial fibrillation. Heart rate is still quite tachycardic and the patient c ontinues to be on Cardizem drip at 15mg an hour in addition to metoprolol 100 mg by mouth 3 times a day, digoxin 250 g daily basis and amiodarone that has been switched to oral at a dose of 5 mg by mouth twice a day. The patient is still requiring low-dose norepinephrine infusion for blood pressure support which is running at 0.02 mg per KG per minute. I started the patient IV fluid and the patient was going on systemic chemotherapy and currently is on normal saline at rate of 70 mL an hour. The patient is taking insulin drip at 14 units an hour. He remains on IV Zosyn. Note that the hematologic profile is still quite abnormal. The white cell count is at 66.9. The patient has 46% blasts in the peripheral smear. Platelet counts at 76. The LDH remains elevated at 10,336. Renal function is stable with a BUN of 47 with a creatinine of 0.9. Uric acid level is at 2.6. Calcium level level is at 7.3. On 09/05/2020, the patient is still doing poorly. The patient is completing [facility] chemotherapy regarding the acute AML crisis. Hematologically, the patient continues to have increased level of blasts in his peripheral smear addition to leukocytosis and elevated LDH. The patient is completing a course of cytarabine. Meanwhile, the patient is still sedated on mechanical ventilator. He is on propofol for sedation running at 60 g per KG per minute. I'll be unable to cut down his sedation as the patient becomes severely tachycardic restless and LUAN inhibitor the mechanical ventilator once of sedation. In terms of his cardiac status, heart rate is still tachycardic and in A. fib rhythm. Despite a combination of metoprolol 100 mg 3 times a day, Cardizem 50 mg an ho ur, amiodarone 400 mg twice a day and digoxin to 50 mg on a daily basis, the patient continues to be quite tachycardic. He is on no anticoagulants for now. He was having episodes of fever and the fever workup included a bronchoscopy and the bronchioloalveolar lavage that showed HSV-1 with some candidal elements. For that reason the patient was given a combination of acyclovir, Aguilar in combination with Zosyn as broad-spectrum antibiotic coverage. The patient is off pressors this morning. He is on a assist-control mode at the rate of 24 with a tidal volume of 500 and FiO2 of 40% with a PEEP of 5. Blood gas show pH of 7.46 with a pCO2 of 30-121 oxygen. The patient's chest x-ray shows increased interstitial infiltrates bilaterally which are somewhat stable compared to yesterday, probably slightly worse on the right. He is receiving daily Lasix doses. The fluid balance has been essentially slightly positive in order of +1 L over the past 24 hours. The patient is on insulin drip at 50 units an hour. He is receiving enteral feeding for nutritional support. No other significant events overnight. On 09/06/2020, the patient is still doing poorly. He is completing the chemot herapy. He remains sedated and unable to come off the sedation as the patient becomes quite breathless agitated tachycardic while off sedation. For that reason the patient is on 60 g of propofol infusion. Breath settings are essentially the same with an assist-control mode at the rate of 24 with a tidal volume of 500 and FiO2 of 40% with a PEEP of 5. PH is 7.43 with a pCO2 of 31 pO2 of 87. He is still having episodic low-grade fever. [place] was cultured from the bronchioloalveolar lavage in addition to HSV and the patient was covered with a combination of Zosyn, acyclovir and Eraxis. Repeat cultures be obtained accordingly. Meanwhile, the patient is currently off pressors. A. fib is still active although less tachycardic to prior evaluation. He remains on a combination of metoprolol, amiodarone, Cardizem drip and digoxin. He is receiving enteral feeding for nutritional support with vital high protein at the rate of 20 mL an hour. As mentioned is completing systemic chemotherapy with cytarabine. The white cell count of 32 with a 11 of 7.4. Platelet count is a 75. The patient continues to 47% blasts in the peripheral smear. Correlation profile is decent. The sodium level is up to 148 with a potassium level of 5.2 and a chloride of 123. The BUN is 41 with a creatinine of 1.06. Patient was reevaluated today on 09/07/20, remains in the ICU, intubated and mechanically ventilated his ventilator settings are volume control plus with tidal volume is 500 rate of 24, FiO2 40% and PEEP of 5. ABG showed a pO2 of 91 pCO2 of 30 pH of 7.43. Patient is off propofol this morning to assess mental status, and it seems to be a bit appropriate. He is on Cardizem drip as well as enteral feeding, and his IV fluid is at 75 mL per hour. Patient received 2 units of packed RBC this morning for hemoglobin of 6.4. And that being managed by hematology/oncology on the case. Patient remains on Zyvox, Zosyn, acyclovir, and Eraxis. Patient was intubated on 08/30, and he remains on mechanical ventilation since then. Labs today with abnormal with hemoglobin of 6.4 blasts cells are 57%. Platelets are 52,000. Sodium is 147 potassium 4.2 chloride is 122 BUN is 42 creatinine 0.87. LDH is coming down it is 10,264 today, uric acid is 3.0. Patient was reevaluated today on 09/08/20, remains in the ICU, intubated, mechanically ventilated. His ventilator settings are assist control rate of 24 tidal volume is 500 FiO2 is 40% and PEEP of 5. ABG showed a pO2 of 84 pCO2 of 27 pH of 7.47. Patient is on multiple drips, Cardizem at 15 mg per hour, insulin at 7 units per hour, she is also on propofol at 25 mcg/kg/m, off norepinephrine. Patient is sedated, however I plan to wean sedation down, and assess mental status. I'm also cutting down his Cardizem today to 10 mg per hour. All his labs were reviewed, LDH seems to be coming down, however the patient is receiving cryoprecipitate, fibrinogen is quite low today. It was felt by oncology that the patient may be having a low-grade DIC. Uric acid remains under control. And again his LDH is improving platelets are 35,000 sitting chest x-ray continues to show bibasilar infiltrates. Patient was reevaluated today on 09/09/20, remains in the ICU, intubated and mechanically ventilated. His ventilator settings are assist control rate of 24, volume control +500, FiO2 50%, PEEP is 5. ABG showed pO2 of 60 pCO2 of 33 pH of 7.41. Patient remains on insulin at 7 units per hour, Cardizem at 10 units per hour, IV fluid at 30 cc per hour, FiO2 was increased to 50%, patient is on enteral feeding, tolerating feeding well. He is on Nepro. Receiving chemotherapy again today for AML. Chest x-ray continues to show improvement in his by basilar infiltrates. No further spikes noted in the last 24 hours. Patient remains in atrial fibrillation, rate seems to be controlled with Cardizem at 10 mg per hour fibrinogen is noted to be low again, patient may receive cryoprecipitate again today Objective - Vital Signs Vital signs: Vital Signs Temp 98.4 F 09/09/20 12:00 Pulse 87 09/09/20 13:00 Resp 21 09/09/20 13:00 BP 102/61 09/09/20 13:00 Pulse Ox 95 09/09/20 13:00 Intake & Output 09/08/20 09/09/20 09/09/20 18:59 06:59 18:59 Intake Total 3026.879 2878.142 2332.815 Output Total 2175 1090 1775 Balance 602.523 3474.142 557.815 Weight 110.4 kg Intake: IV 1769 1622 1217 Acyclovir Sodium 1,000 mg 500 250 250 In Sodium Chloride 0.9% 250 ml @ 270 mls/hr IVPB Q8HR ANA Rx#:[id number] Linezolid 600 mg In 250 300 300 Dextrose/Water 1 300ml. bag @ 150 mls/hr IVPB Q12HR ANA Rx#:[id number] Normal Saline Pressure 69 72 42 Bag Piperacillin-Tazobactam 3 200 100 100 .375 gm In Sodium Chloride 0.9% 100 ml @ 25 mls/hr IVPB Q8HR ANA Rx# :[id number] Sodium Chloride 0.45% 1, 750 900 525 000 ml @ 75 mls/hr IV . [id number] REPLACED BY [facility] Rx#:[id number] Intake, IV Titration 522.879 761.142 762.815 Amount Anidulafungin 100 mg In 100 100 Sodium Chloride 0.9% 100 ml @ 84 mls/hr IVPB DAILY REPLACED BY [facility] Rx#:[id number] Cytarabine/Pf 210 mg In 462 252 Sodium Chloride 0.9% 1, 000 ml @ 42.104 mls/hr IV ONCE ONE Rx#:[id number] Diltiazem 125 mg In 59.667 122.667 96 Sodium Chloride 0.9% 100 ml @ 10 MG/HR 10 mls/hr IV .[id number] REPLACED BY [facility] Rx#: [id number] Insulin Regular 100 unit 122.177 76.659 66.054 In Sodium Chloride 0.9% 100 ml @ Per Protocol IV .Q0M REPLACED BY [facility] Rx#:[id number] Norepinephrine 32 mg In 1.735 13.323 Sodium Chloride 0.9% 218 ml @ 0.06 MCG/KG/MIN 2. 776 mls/hr IV .Q24H REPLACED BY [facility] Rx#:[id number] Ondansetron 16 mg In 50 Sodium Chloride 0.9% 50 ml @ 232 mls/hr IVPB ONCE ONE Rx#:[id number] propofoL 1,000 mg In 191.035 98.081 235.438 Empty Bag 1 bag @ Titrate IV .Q0M REPLACED BY [facility] Rx#: [id number] Tube Feeding 405 405 243 Blood Product 100 Pooled Cryoprecipitate 100 Unit [id number] Other 230 90 110 Pooled Cryoprecipitate 50 Unit [id number] Output: Urine 2175 1090 1775 Other: Voiding Method Indwelling Catheter Indwelling Catheter Indwelling Catheter ABP, PAP, CO, CI - Last Documented Arterial Blood Pressure 104/62 - Exam -GENERAL: Revealed a 75-year-old white male on mechanical ventilation, in no distress. Noted to be slightly a synchronous with mechanical ventilation, has propofol was increased HEENT: PERRLA, EOMI, no icterus, no neck masses, no JVD, orogastric tube and endotracheal tube are intact. CARDIOVASCULAR: Normal S1 and S2, no S3 gallop. PULMONARY: Crackles at the bases, no rhonchi and no wheezes. ABDOMEN: Obese, soft, nontender, no megaly, no rebound, no guarding. MUSCULOSKELETAL: No limitation in range of motion, good muscle tone. No deformities. -EXTREMITIES: No clubbing or cyanosis, trace of bipedal edema NEUROLOGICAL: On propofol, had to increase the dose as the patient was a synchronous with mechanical ventilation, could not assess neurological status SKIN: No rashes. no petechiae. Psychiatric: Could not be assessed - Labs CBC & Chem 7: 09/09/20 04:20 09/09/20 04:20 Labs: Abnormal Lab Results - Last 24 Hours (Table) 09/08/20 09/08/20 09/08/20 Range/Units 14:02 16:12 17:29 WBC (3.8-10.6) k/uL RBC (4.30-5.90) m/uL Hgb (13.0-17.5) gm/dL Hct (39.0-53.0) % RDW (11.5-15.5) % Plt Count (150-450) k/uL Blast Cells % % Neutrophils # (Manual) (1.3-7.7) k/uL Metamyelocytes # (Man) (0) k/uL Myelocytes # (Manual) (0) k/uL Promyelocytes # (Man) (0) k/uL Blast Cells # (Man) (0) k/uL PT (9.0-12.0) sec INR (<1.2) Fibrinogen (200-500) mg/dL D-Dimer (<0.60) mg/L FEU ABG pCO2 (35-45) mmHg ABG pO2 (83-108) mmHg ABG O2 Saturation (94-97) % Chloride (98-107) mmol/L BUN (9-20) mg/dL Glucose (74-99) mg/dL POC Glucose (mg/dL) 154 H 137 H 142 H (75-99) mg/dL Uric Acid (3.5-8.5) mg/dL Calcium (8.4-10.2) mg/dL Magnesium (1.6-2.3) mg/dL Lactate Dehydrogenase (313-618) U/L Total Protein (6.3-8.2) g/dL Albumin (3.5-5.0) g/dL 10/09/08/20 09/08/20 Range/Units 18:29 19:14 20:07 WBC (3.8-10.6) k/uL RBC (4.30-5.90) m/uL Hgb (13.0-17.5) gm/dL Hct (39.0-53.0) % RDW (11.5-15.5) % Plt Count (150-450) k/uL Blast Cells % % Neutrophils # (Manual) (1.3-7.7) k/uL Metamyelocytes # (Man) (0) k/uL Myelocytes # (Manual) (0) k/uL Promyelocytes # (Man) (0) k/uL Blast Cells # (Man) (0) k/uL PT (9.0-12.0) sec INR (<1.2) Fibrinogen (200-500) mg/dL D-Dimer (<0.60) mg/L FEU ABG pCO2 (35-45) mmHg ABG pO2 (83-108) mmHg ABG O2 Saturation (94-97) % Chloride (98-107) mmol/L BUN (9-20) mg/dL Glucose (74-99) mg/dL POC Glucose (mg/dL) 135 H 138 H 173 H (75-99) mg/dL Uric Acid (3.5-8.5) mg/dL Calcium (8.4-10.2) mg/dL Magnesium (1.6-2.3) mg/dL Lactate Dehydrogenase (313-618) U/L Total Protein (6.3-8.2) g/dL Albumin (3.5-5.0) g/dL 09/08/20 09/08/20 09/09/20 Range/Units 22:10 23:41 02:03 WBC (3.8-10.6) k/uL RBC (4.30-5.90) m/uL Hgb (13.0-17.5) gm/dL Hct (39.0-53.0) % RDW (11.5-15.5) % Plt Count (150-450) k/uL Blast Cells % % Neutrophils # (Manual) (1.3-7.7) k/uL Metamyelocytes # (Man) (0) k/uL Myelocytes # (Manual) (0) k/uL Promyelocytes # (Man) (0) k/uL Blast Cells # (Man) (0) k/uL PT (9.0-12.0) sec INR (<1.2) Fibrinogen (200-500) mg/dL D-Dimer (<0.60) mg/L FEU ABG pCO2 (35-45) mmHg ABG pO2 (83-108) mmHg ABG O2 Saturation (94-97) % Chloride (98-107) mmol/L BUN (9-20) mg/dL Glucose (74-99) mg/dL POC Glucose (mg/dL) 226 H 181 H 161 H (75-99) mg/dL Uric Acid (3.5-8.5) mg/dL Calcium (8.4-10.2) mg/dL Magnesium (1.6-2.3) mg/dL Lactate Dehydrogenase (313-618) U/L Total Protein (6.3-8.2) g/dL Albumin (3.5-5.0) g/dL 09/09/20 09/09/20 09/09/20 Range/Units 04:20 04:20 04:20 WBC 13.1 H (3.8-10.6) k/uL RBC 2.41 L (4.30-5.90) m/uL Hgb 7.8 L (13.0-17.5) gm/dL Hct 22.3 L (39.0-53.0) % RDW 19.5 H (11.5-15.5) % Plt Count 21 L (150-450) k/uL Blast Cells % 4 H* % Neutrophils # (Manual) 8.30 H (1.3-7.7) k/uL Metamyelocytes # (Man) 1.18 H (0) k/uL Myelocytes # (Manual) 1.83 H (0) k/uL Promyelocytes # (Man) 0.13 H (0) k/uL Blast Cells # (Man) 0.52 H (0) k/uL PT (9.0-12.0) sec INR (<1.2) Fibrinogen 78 L* (200-500) mg/dL D-Dimer 16.09 H (<0.60) mg/L FEU ABG pCO2 (35-45) mmHg ABG pO2 (83-108) mmHg ABG O2 Saturation (94-97) % Chloride 121 H (98-107) mmol/L BUN 41 H (9-20) mg/dL Glucose 153 H (74-99) mg/dL POC Glucose (mg/dL) (75-99) mg/dL Uric Acid 2.6 L (3.5-8.5) mg/dL Calcium 7.6 L (8.4-10.2) mg/dL Magnesium 2.5 H (1.6-2.3) mg/dL Lactate Dehydrogenase 4256 H (313-618) U/L Total Protein 4.5 L (6.3-8.2) g/dL Albumin 2.3 L (3.5-5.0) g/dL 09/09/20 09/09/20 09/09/20 Range/Units 04:35 06:18 08:09 WBC (3.8-10.6) k/uL RBC (4.30-5.90) m/uL Hgb (13.0-17.5) gm/dL Hct (39.0-53.0) % RDW (11.5-15.5) % Plt Count (150-450) k/uL Blast Cells % % Neutrophils # (Manual) (1.3-7.7) k/uL Metamyelocytes # (Man) (0) k/uL Myelocytes # (Manual) (0) k/uL Promyelocytes # (Man) (0) k/uL Blast Cells # (Man) (0) k/uL PT (9.0-12.0) sec INR (<1.2) Fibrinogen (200-500) mg/dL D-Dimer (<0.60) mg/L FEU ABG pCO2 33 L (35-45) mmHg ABG pO2 60 L (83-108) mmHg ABG O2 Saturation 90.4 L (94-97) % Chloride (98-107) mmol/L BUN (9-20) mg/dL Glucose (74-99) mg/dL POC Glucose (mg/dL) 152 H 152 H (75-99) mg/dL Uric Acid (3.5-8.5) mg/dL Calcium (8.4-10.2) mg/dL Magnesium (1.6-2.3) mg/dL Lactate Dehydrogenase (313-618) U/L Total Protein (6.3-8.2) g/dL Albumin (3.5-5.0) g/dL 09/09/20 09/09/20 09/09/20 Range/Units 08:11 09:59 11:00 WBC (3.8-10.6) k/uL RBC (4.30-5.90) m/uL Hgb (13.0-17.5) gm/dL Hct (39.0-53.0) % RDW (11.5-15.5) % Plt Count (150-450) k/uL Blast Cells % % Neutrophils # (Manual) (1.3-7.7) k/uL Metamyelocytes # (Man) (0) k/uL Myelocytes # (Manual) (0) k/uL Promyelocytes # (Man) (0) k/uL Blast Cells # (Man) (0) k/uL PT 13.0 H (9.0-12.0) sec INR 1.3 H (<1.2) Fibrinogen (200-500) mg/dL D-Dimer (<0.60) mg/L FEU ABG pCO2 (35-45) mmHg ABG pO2 (83-108) mmHg ABG O2 Saturation (94-97) % Chloride (98-107) mmol/L BUN (9-20) mg/dL Glucose (74-99) mg/dL POC Glucose (mg/dL) 146 H 186 H (75-99) mg/dL Uric Acid (3.5-8.5) mg/dL Calcium (8.4-10.2) mg/dL Magnesium (1.6-2.3) mg/dL Lactate Dehydrogenase (313-618) U/L Total Protein (6.3-8.2) g/dL Albumin (3.5-5.0) g/dL 09/09/20 Range/Units 11:59 WBC (3.8-10.6) k/uL RBC (4.30-5.90) m/uL Hgb (13.0-17.5) gm/dL Hct (39.0-53.0) % RDW (11.5-15.5) % Plt Count (150-450) k/uL Blast Cells % % Neutrophils # (Manual) (1.3-7.7) k/uL Metamyelocytes # (Man) (0) k/uL Myelocytes # (Manual) (0) k/uL Promyelocytes # (Man) (0) k/uL Blast Cells # (Man) (0) k/uL PT (9.0-12.0) sec INR (<1.2) Fibrinogen (200-500) mg/dL D-Dimer (<0.60) mg/L FEU ABG pCO2 (35-45) mmHg ABG pO2 (83-108) mmHg ABG O2 Saturation (94-97) % Chloride (98-107) mmol/L BUN (9-20) mg/dL Glucose (74-99) mg/dL POC Glucose (mg/dL) 162 H (75-99) mg/dL Uric Acid (3.5-8.5) mg/dL Calcium (8.4-10.2) mg/dL Magnesium (1.6-2.3) mg/dL Lactate Dehydrogenase (313-618) U/L Total Protein (6.3-8.2) g/dL Albumin (3.5-5.0) g/dL Microbiology - Last 24 Hours (Table) 09/04/20 11:11 Blood Culture - Preliminary Blood No Growth after 120 hours 09/06/20 09:15 Blood Culture - Preliminary Blood No Growth after 72 hours 09/06/20 11:16 Gram Stain - Final Sputum Sputum Culture - Final [place] albicans Virginia glabrata Assessment and Plan Assessment: Impression: Acute hypoxic respiratory failure Acute bilateral pulmonary infiltrates, differential diagnoses includes pneumonia or lung injury from promyelocytic leukemia treatment. Patient is immunocompromised, he is definitely a set up for infection. Tumor lysis syndrome Acute leukemic crisis with elevated level of blasts with anemia and thrombocytopenia patient is receiving cytarabine chemotherapy. Acute promyelocytic leukemia Type 2 diabetes. Requiring insulin drip. Chronic atrial fibrillation. Remains on Cardizem, we'll cut down the dose to 10 mg per hour. Dyslipidemia. Acute kidney injury on presentation, improving since admission. History of poliomyelitis as a child. History of psoriasis. History of obstructive sleep apnea syndrome. Benign essential hypertension. Mild DIC. Recommendation: Continue ventilatory support. Patient is not ready for any weaning trial today. Continue antibiotics and antiviral therapy. Continue present cardiac meds to control his atrial fibrillation. Continue systemic chemotherapy Transfused with blood and platelets as necessary. , And as felt needed by hematology on the case. Continue enteral feeding. Monitor daily labs for tumor lysis syndrome. LDH is improving and uric acid is stable. Continue sedation , no sedation interruption today. Continue to monitor and correct daily electrolytes. Overall prognosis remains definitely poor and guarded, We'll continue to follow. Critical care time is 32 minutes Time with Patient: Greater than 30
[2020-09-09 14:01] LABS: Glucose,Whole Blood 171 mg/dL (75-99)
[2020-09-09 16:10] LABS: Glucose,Whole Blood 165 mg/dL (75-99)
[2020-09-09 17:59] LABS: Glucose,Whole Blood 102 mg/dL (75-99)
--- NOTE | 2020-09-09 18:52 | P.PN ---
Subjective Progress Note Date: 09/09/20 Principal diagnosis: APL - Acute Hypoxic respiratory failure Overall He is remaining stable: Continue to control low grade DIC, Monitoring for bleeding and ICU/Pulmonary monitoring respiratory status and maintaining vitals. His platelets dropped to 21K today, in this scenario will check coags stat (PT/INR). PTT Stable, Fibrinogen is 78. There is no oozing or bleeding at site of lines or mucosa or bowels or bladder. Positive BM today. Cryoprecipitate Transfusion today Recheck PT/INR stable, unchanged from days prior Blasts and LDH slowly trending down after third cytoreductive dose of cytarabine, continue to maintain overall stability and plan for treating as high risk with induction high dose cytarabine versus base standard of care with arsenic and atra. Defer final decision to primary oncologist Dr. Car. Objective - Vital Signs Vital signs: Vital Signs Temp 98.6 F 09/09/20 18:00 Pulse 84 09/09/20 18:00 Resp 18 09/09/20 18:00 BP 114/66 09/09/20 16:10 Pulse Ox 93 L 09/09/20 18:00 Intake & Output 09/08/20 09/09/20 09/09/20 18:59 06:59 18:59 Intake Total 3026.879 2878.142 3821.102 Output Total 2175 1090 2170 Balance 080.765 0788.142 1651.102 Weight 110.4 kg Intake: IV 1769 1622 1972 Acyclovir Sodium 1,000 mg 500 250 500 In Sodium Chloride 0.9% 250 ml @ 270 mls/hr IVPB Q8HR ANA Rx#:[id number] Linezolid 600 mg In 250 300 300 Dextrose/Water 1 300ml. bag @ 150 mls/hr IVPB Q12HR ANA Rx#:[id number] Normal Saline Pressure 69 72 72 Bag Piperacillin-Tazobactam 3 200 100 200 .375 gm In Sodium Chloride 0.9% 100 ml @ 25 mls/hr IVPB Q8HR ANA Rx# :[id number] Sodium Chloride 0.45% 1, 750 900 900 000 ml @ 75 mls/hr IV . [id number] ANA Rx#:[id number] Intake, IV Titration 522.879 971.119 8235.102 Amount Anidulafungin 100 mg In 100 100 Sodium Chloride 0.9% 100 ml @ 84 mls/hr IVPB DAILY [facility] Rx#:[id number] Cytarabine/Pf 210 mg In 462 462 Sodium Chloride 0.9% 1, 000 ml @ 42.104 mls/hr IV ONCE ONE Rx#:[id number] Diltiazem 125 mg In 59.667 122.667 96 Sodium Chloride 0.9% 100 ml @ 10 MG/HR 10 mls/hr IV .[id number] [facility] Rx#: [id number] Insulin Regular 100 unit 122.177 76.659 107.935 In Sodium Chloride 0.9% 100 ml @ Per Protocol IV .Q0M [facility] Rx#:[id number] Norepinephrine 32 mg In 1.735 18.729 Sodium Chloride 0.9% 218 ml @ 0.06 MCG/KG/MIN 2. 776 mls/hr IV .Q24H [facility] Rx#:[id number] Ondansetron 16 mg In 50 Sodium Chloride 0.9% 50 ml @ 232 mls/hr IVPB ONCE ONE Rx#:[id number] propofoL 1,000 mg In 191.035 98.081 335.438 Empty Bag 1 bag @ Titrate IV .Q0M [facility] Rx#: [id number] Tube Feeding 405 405 405 Blood Product 100 94 Pooled Cryoprecipitate 94 Unit [id number] Pooled Cryoprecipitate 100 Unit [id number] Other 230 90 230 Pooled Cryoprecipitate 50 Unit [id number] Pooled Cryoprecipitate 50 Unit [id number] Output: Urine 2175 1090 2170 Other: Voiding Method Indwelling Catheter Indwelling Catheter Indwelling Catheter # Bowel Movements 1 ABP, PAP, CO, CI - Last Documented Arterial Blood Pressure 92/79 - Exam - Constitutional Constitutional Comment(s): Ventilator ENT:ET tube - Respiratory - Vent, tachypneic Respiratory: bilateral: rales, rhonchi - Cardiovascular Rhythm: irregularly irregular - Gastrointestinal General gastrointestinal: Present: distended, normal bowel sounds, soft - Integumentary Integumentary: Present: normal - Neurologic Neurologic:KARSTEN - Musculoskeletal Musculoskeletal:Atrophy noted to muscles, KARSTEN strength BLE and BUE edema - Psychiatric Psychiatric: KARSTEN - Labs CBC & Chem 7: 09/09/20 04:20 09/09/20 04:20 Labs: Abnormal Lab Results - Last 24 Hours (Table) 09/08/20 09/08/20 09/08/20 Range/Units 19:14 20:07 22:10 WBC (3.8-10.6) k/uL RBC (4.30-5.90) m/uL Hgb (13.0-17.5) gm/dL Hct (39.0-53.0) % RDW (11.5-15.5) % Plt Count (150-450) k/uL Blast Cells % % Neutrophils # (Manual) (1.3-7.7) k/uL Metamyelocytes # (Man) (0) k/uL Myelocytes # (Manual) (0) k/uL Promyelocytes # (Man) (0) k/uL Blast Cells # (Man) (0) k/uL PT (9.0-12.0) sec INR (<1.2) Fibrinogen (200-500) mg/dL D-Dimer (<0.60) mg/L FEU ABG pCO2 (35-45) mmHg ABG pO2 (83-108) mmHg ABG O2 Saturation (94-97) % Chloride (98-107) mmol/L BUN (9-20) mg/dL Glucose (74-99) mg/dL POC Glucose (mg/dL) 138 H 173 H 226 H (75-99) mg/dL Uric Acid (3.5-8.5) mg/dL Calcium (8.4-10.2) mg/dL Magnesium (1.6-2.3) mg/dL Lactate Dehydrogenase (313-618) U/L Total Protein (6.3-8.2) g/dL Albumin (3.5-5.0) g/dL 09/08/20 09/09/20 09/09/20 Range/Units 23:41 02:03 04:20 WBC 13.1 H (3.8-10.6) k/uL RBC 2.41 L (4.30-5.90) m/uL Hgb 7.8 L (13.0-17.5) gm/dL Hct 22.3 L (39.0-53.0) % RDW 19.5 H (11.5-15.5) % Plt Count 21 L (150-450) k/uL Blast Cells % 4 H* % Neutrophils # (Manual) 8.30 H (1.3-7.7) k/uL Metamyelocytes # (Man) 1.18 H (0) k/uL Myelocytes # (Manual) 1.83 H (0) k/uL Promyelocytes # (Man) 0.13 H (0) k/uL Blast Cells # (Man) 0.52 H (0) k/uL PT (9.0-12.0) sec INR (<1.2) Fibrinogen (200-500) mg/dL D-Dimer (<0.60) mg/L FEU ABG pCO2 (35-45) mmHg ABG pO2 (83-108) mmHg ABG O2 Saturation (94-97) % Chloride (98-107) mmol/L BUN (9-20) mg/dL Glucose (74-99) mg/dL POC Glucose (mg/dL) 181 H 161 H (75-99) mg/dL Uric Acid (3.5-8.5) mg/dL Calcium (8.4-10.2) mg/dL Magnesium (1.6-2.3) mg/dL Lactate Dehydrogenase (313-618) U/L Total Protein (6.3-8.2) g/dL Albumin (3.5-5.0) g/dL 09/09/20 09/09/20 09/09/20 Range/Units 04:20 04:20 04:35 WBC (3.8-10.6) k/uL RBC (4.30-5.90) m/uL Hgb (13.0-17.5) gm/dL Hct (39.0-53.0) % RDW (11.5-15.5) % Plt Count (150-450) k/uL Blast Cells % % Neutrophils # (Manual) (1.3-7.7) k/uL Metamyelocytes # (Man) (0) k/uL Myelocytes # (Manual) (0) k/uL Promyelocytes # (Man) (0) k/uL Blast Cells # (Man) (0) k/uL PT (9.0-12.0) sec INR (<1.2) Fibrinogen 78 L* (200-500) mg/dL D-Dimer 16.09 H (<0.60) mg/L FEU ABG pCO2 (35-45) mmHg ABG pO2 (83-108) mmHg ABG O2 Saturation (94-97) % Chloride 121 H (98-107) mmol/L BUN 41 H (9-20) mg/dL Glucose 153 H (74-99) mg/dL POC Glucose (mg/dL) 152 H (75-99) mg/dL Uric Acid 2.6 L (3.5-8.5) mg/dL Calcium 7.6 L (8.4-10.2) mg/dL Magnesium 2.5 H (1.6-2.3) mg/dL Lactate Dehydrogenase 4256 H (313-618) U/L Total Protein 4.5 L (6.3-8.2) g/dL Albumin 2.3 L (3.5-5.0) g/dL 09/09/20 09/09/20 09/09/20 Range/Units 06:18 08:09 08:11 WBC (3.8-10.6) k/uL RBC (4.30-5.90) m/uL Hgb (13.0-17.5) gm/dL Hct (39.0-53.0) % RDW (11.5-15.5) % Plt Count (150-450) k/uL Blast Cells % % Neutrophils # (Manual) (1.3-7.7) k/uL Metamyelocytes # (Man) (0) k/uL Myelocytes # (Manual) (0) k/uL Promyelocytes # (Man) (0) k/uL Blast Cells # (Man) (0) k/uL PT (9.0-12.0) sec INR (<1.2) Fibrinogen (200-500) mg/dL D-Dimer (<0.60) mg/L FEU ABG pCO2 33 L (35-45) mmHg ABG pO2 60 L (83-108) mmHg ABG O2 Saturation 90.4 L (94-97) % Chloride (98-107) mmol/L BUN (9-20) mg/dL Glucose (74-99) mg/dL POC Glucose (mg/dL) 152 H 146 H (75-99) mg/dL Uric Acid (3.5-8.5) mg/dL Calcium (8.4-10.2) mg/dL Magnesium (1.6-2.3) mg/dL Lactate Dehydrogenase (313-618) U/L Total Protein (6.3-8.2) g/dL Albumin (3.5-5.0) g/dL 09/09/20 09/09/20 09/09/20 Range/Units 09:59 11:00 11:59 WBC (3.8-10.6) k/uL RBC (4.30-5.90) m/uL Hgb (13.0-17.5) gm/dL Hct (39.0-53.0) % RDW (11.5-15.5) % Plt Count (150-450) k/uL Blast Cells % % Neutrophils # (Manual) (1.3-7.7) k/uL Metamyelocytes # (Man) (0) k/uL Myelocytes # (Manual) (0) k/uL Promyelocytes # (Man) (0) k/uL Blast Cells # (Man) (0) k/uL PT 13.0 H (9.0-12.0) sec INR 1.3 H (<1.2) Fibrinogen (200-500) mg/dL D-Dimer (<0.60) mg/L FEU ABG pCO2 (35-45) mmHg ABG pO2 (83-108) mmHg ABG O2 Saturation (94-97) % Chloride (98-107) mmol/L BUN (9-20) mg/dL Glucose (74-99) mg/dL POC Glucose (mg/dL) 186 H 162 H (75-99) mg/dL Uric Acid (3.5-8.5) mg/dL Calcium (8.4-10.2) mg/dL Magnesium (1.6-2.3) mg/dL Lactate Dehydrogenase (313-618) U/L Total Protein (6.3-8.2) g/dL Albumin (3.5-5.0) g/dL 09/09/20 09/09/20 09/09/20 Range/Units 14:00 16:09 17:58 WBC (3.8-10.6) k/uL RBC (4.30-5.90) m/uL Hgb (13.0-17.5) gm/dL Hct (39.0-53.0) % RDW (11.5-15.5) % Plt Count (150-450) k/uL Blast Cells % % Neutrophils # (Manual) (1.3-7.7) k/uL Metamyelocytes # (Man) (0) k/uL Myelocytes # (Manual) (0) k/uL Promyelocytes # (Man) (0) k/uL Blast Cells # (Man) (0) k/uL PT (9.0-12.0) sec INR (<1.2) Fibrinogen (200-500) mg/dL D-Dimer (<0.60) mg/L FEU ABG pCO2 (35-45) mmHg ABG pO2 (83-108) mmHg ABG O2 Saturation (94-97) % Chloride (98-107) mmol/L BUN (9-20) mg/dL Glucose (74-99) mg/dL POC Glucose (mg/dL) 171 H 165 H 102 H (75-99) mg/dL Uric Acid (3.5-8.5) mg/dL Calcium (8.4-10.2) mg/dL Magnesium (1.6-2.3) mg/dL Lactate Dehydrogenase (313-618) U/L Total Protein (6.3-8.2) g/dL Albumin (3.5-5.0) g/dL Microbiology - Last 24 Hours (Table) 09/04/20 11:11 Blood Culture - Preliminary Blood No Growth after 120 hours 09/06/20 09:15 Blood Culture - Preliminary Blood No Growth after 72 hours 09/06/20 11:16 Gram Stain - Final Sputum Sputum Culture - Final [place] albicans [place] glabrata Assessment and Plan Plan: Assessment and Recommendations: 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 Unfort worsened to 56% on 09/02/20 and today 59% on 09/03/20. 09/07/20 = 40% Unable to administer hydrea dosage through feeding tube while on ventilator therefore will order Cyatarbine 100mg/m2 iv x3 days as cytoreduction treatment. 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 Low Grade DIC - - Transfuse unit of Cryoprecipitate if Fibrinogen less than 100 - MOnitor for any s/s bleeding especially oozing from lines or Bowels or Bladder - Transfuse platelets if less than 50K and bleeding or if coagulopathy and thrombocytopenia, otherwise transfuse platelets to remain above 20K - Transfuse FFP in picture of bleeding or oozing and prolonged COag - Cry given on 09/06/20, fibrinogen 98 - Cryo ordered today 09/08/20 = 78 Cytokine Storm/Differentiation Syndrome Febrile - Coverage with abx, anti-fungal, anti-viral - ID is following - Cultures negative to date - afebrile since 09/06/20 - When blasts increase so does body temp Acute Hypoxic Respiratory Failure: Secondary to differentiation syndrome plus or minus sepsis - Remains ICU on Mechanical Ventilator (08/30/2020) - Acute development of diffuse bilateral pulmonary infiltrates - Differentials include pneumonia/CHF (not consistent with CHF - felt to be differential syndrome) versus noncardiogenic pulmonary edema 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 - Daily CBC, CMP, Fibrinogen, PTT, PT, INR, Dimer, Phos, Mag, LDH - Transfuse Cryoprecipitate today for low grade DIC Fibrinogen 78 - Continue on 20mg IV dex (in 2-3 doses) daily - Status Post Cytarabine for cytokine reduction (Day 3 of 3) on 09/07/20 - Status Post additional cytoreductive Cytarabine 09/08/20 (total 4 doses) Cryoprecipitate Transfusion today Recheck PT/INR stable, unchanged from days prior Blasts and LDH slowly trending down after third cytoreductive dose of cy tarabine, continue to maintain overall stability and plan for treating as high risk with induction high dose cytarabine versus base standard of care with arsenic and atra. Defer final decision to primary oncologist Dr. Car. Physician Attest: I have completed the full history and physical and agree with above dictation, dictated as a scribe
[2020-09-09 19:03] LABS: Glucose,Whole Blood 169 mg/dL (75-99)
[2020-09-09 19:56] LABS: Glucose,Whole Blood 176 mg/dL (75-99)
[2020-09-09] MEDS: ATORVASTATIN 10 MG TAB PO SCH (20:15)
[2020-09-09 22:02] LABS: Glucose,Whole Blood 205 mg/dL (75-99)
[2020-09-09 23:59] LABS: Glucose,Whole Blood 206 mg/dL (75-99)
--- NOTE | 2020-09-10 00:09 | PN ---
PROGRESS NOTE DATE OF SERVICE: 09/09/2020 REASON FOR FOLLOWUP: pneumonia. INTERVAL HISTORY: The patient is currently afebrile. The patient is hemodynamically stable. FiO2 is currently at 50%. No significant purulent secretion through the ET. Has been tolerating his tube feeds. Noticed to have slight diarrhea last night and this morning. No blood or mucus in the stool per the nursing staff. PHYSICAL EXAMINATION: Blood pressure 117/56, pulse of 94, temperature of 98. He is 93% on 50% FiO2. General description is an elderly male lying in bed in no distress. RESPIRATORY SYSTEM: Unlabored breathing, decreased breath sounds at the bases, no wheeze. HEART: S1, S2. Regular rate and rhythm. ABDOMEN: Soft, no tenderness. LABS: Hemoglobin 7.8, white count 13.1, BUN of 41, creatinine 0.96. Electrolytes have been normal. DIAGNOSTIC IMPRESSION AND PLAN: Patient with acute respiratory failure which is multifactorial with likely component of pneumonia. The patient is currently broadly covered with Zosyn and Zyvox. Eraxis to continue. Chest x-ray showed some improvement and his fever has resolved. We will monitor his clinical course closely. MMODL / IJN: [id number] / [id number]
[2020-09-10] MEDS: HYDROmorphone 1 MG/ML 1 ML SYRINGE IVP PRN ×4 (00:28→13:45)
[2020-09-10 02:04] LABS: Glucose,Whole Blood 192 mg/dL (75-99)
[2020-09-10] MEDS: INSULIN REGULAR 100 UNIT in SODIUM CHLORIDE 0.9% 100 ML IV SCH ×2 (02:07→11:30)
[2020-09-10] MEDS: DILTIAZEM 125 MG in SODIUM CHLORIDE 0.9% 100 ML IV SCH ×3 (02:08→11:28)
[2020-09-10 04:03] LABS: Glucose,Whole Blood 167 mg/dL (75-99)
[2020-09-10] MEDS: DEXAMETHASONE SOD PHOSPHATE 4 MG/ML 1 ML VIAL IV SCH ×3 (04:37→17:12)
[2020-09-10 05:52] LABS: Albumin 2.3 g/dL (3.5-5.0); Calcium 7.6 mg/dL (8.4-10.2); Potassium 4.1 mmol/L (3.5-5.1); Total Protein 4.5 g/dL (6.3-8.2)
[2020-09-10] MEDS: ACETAMINOPHEN TAB 500 MG TAB PO PRN (05:52)
[2020-09-10 05:53] LABS: Anisocytosis Slight; HGB 7.1 gm/dL (13.0-17.5); Hypochromasia Slight; MCH 33.4 pg (25.0-35.0); MCHC 35.7 g/dL (31.0-37.0); MCV 93.6 fL (80.0-100.0); Macrocytosis Slight; Poikilocytosis Slight; RBC 2.14 m/uL (4.30-5.90); RDW 19.8 % (11.5-15.5); WBC 17.7 k/uL (3.8-10.6)
[2020-09-10 05:56] LABS: Platelet Count 25 k/uL (150-450)
[2020-09-10 06:11] LABS: D-Dimer 25.73 mg/L FEU (<0.60); INR 1.4 (<1.2); Partial Thromboplastin Time 23.2 sec (22.0-30.0); Prothrombin Time 13.6 sec (9.0-12.0)
[2020-09-10 06:14] LABS: Fibrinogen <70 mg/dL (200-500)
[2020-09-10] MEDS: ACYCLOVIR SODIUM 1,000 MG in SODIUM CHLORIDE 0.9% 250 ML IVPB SCH ×2 (07:31→15:52)
[2020-09-10] MEDS: PIPERACILLIN-TAZOBACTAM 3.375 GM in SODIUM CHLORIDE 0.9% 100 ML IVPB SCH ×2 (07:31→15:52)
[2020-09-10] MEDS: PANTOPRAZOLE 40 MG/10 ML VIAL IVP SCH ×2 (08:06→20:42)
[2020-09-10] MEDS: FUROSEMIDE 10 MG/ML 4 ML VIAL IV SCH (08:06)
[2020-09-10 08:17] LABS: Glucose,Whole Blood 141 mg/dL (75-99)
[2020-09-10 08:23] LABS: ABG Base Excess -7.6 mmol/L; ABG HCO3 18 mmol/L (21-25); ABG Oxygen Saturation 94.3 % (94-97); ABG PCO2 34 mmHg (35-45); ABG PH 7.34 (7.35-7.45); ABG PO2 75 mmHg (83-108); ABG TCO2 19 mmol/L (19-24)
[2020-09-10 08:25] LABS: Allen Test Performed? no
[2020-09-10] MEDS: NOREPINEPHRINE 32 MG in SODIUM CHLORIDE 0.9% 218 ML IV SCH (08:51)
[2020-09-10] MEDS ORDERED: CISATRACURIUM 2 MG/ML 5 ML VIAL IV ONE (09:26)
[2020-09-10 09:43] LABS: ABG Base Excess -8.4 mmol/L; ABG HCO3 18 mmol/L (21-25); ABG Oxygen Saturation 91.7 % (94-97); ABG PCO2 39 mmHg (35-45); ABG PH 7.28 (7.35-7.45); ABG PO2 71 mmHg (83-108); ABG TCO2 20 mmol/L (19-24)
[2020-09-10] MEDS ORDERED: CISATRACURIUM 200 MG in SODIUM CHLORIDE 0.9% 180 ML IV SCH (09:45)
[2020-09-10] MEDS ORDERED: SODIUM BICARB 8.4% 50 ML SYR (1 MEQ/ML) ONE (09:45)
[2020-09-10] MEDS ORDERED: SODIUM BICARB 8.4% 50 ML SYR (1 MEQ/ML) IV STA ×2 (09:45→15:37)
[2020-09-10 09:47] LABS: Allen Test Performed? no
[2020-09-10] MEDS: FUROSEMIDE 100 MG in SODIUM CHLORIDE 0.9% 90 ML IV SCH ×2 (09:50→15:45)
[2020-09-10] MEDS: SENNOSIDES 8.6 MG TAB PO SCH (09:50)
[2020-09-10] MEDS: LINEZOLID 600 MG in DEXTROSE/WATER 1 300ML.BAG IVPB SCH ×2 (09:55→20:41)
[2020-09-10] MEDS: ANIDULAFUNGIN 100 MG in SODIUM CHLORIDE 0.9% 100 ML IVPB SCH (09:56)
[2020-09-10] MEDS ORDERED: DILTIAZEM 125 MG in SODIUM CHLORIDE 0.9% 100 ML IV SCH (10:00)
[2020-09-10 10:22] LABS: Glucose,Whole Blood 181 mg/dL (75-99)
[2020-09-10] MEDS: AMIODARONE 200 MG TAB PO SCH ×2 (10:26→20:42)
[2020-09-10] MEDS: TAMSULOSIN 0.4 MG CAP.ER.24H PO SCH ×2 (10:26→20:42)
[2020-09-10] MEDS: POTASSIUM CHLORIDE ER 20 MEQ TAB.ER PO SCH ×2 (10:26→20:42)
[2020-09-10] MEDS: GABAPENTIN 100 MG CAP PO SCH ×3 (10:26→21:47)
[2020-09-10] MEDS: DIGOXIN 250 MCG TAB PO SCH (10:26)
[2020-09-10] MEDS: CHLORHEXIDINE GLUCONATE 15 ML CUP MUCOUS MEM SCH ×2 (10:27→20:42)
[2020-09-10] MEDS: MAGNESIUM OXIDE 400 MG TAB PO SCH (10:42)
[2020-09-10] MEDS: METOPROLOL TARTRATE 50 MG TAB PO SCH ×3 (10:43→21:48)
[2020-09-10 11:18] VITALS: BMI 39.4
[2020-09-10 11:22] LABS: Blast Cells # (M) 1.42 k/uL (0); Eosinophils # (M) 0.18 k/uL (0-0.7); Lymphocytes # (M) 2.83 k/uL (1.0-4.8); Metamyelocytes # (M) 1.24 k/uL (0); Metamyelocytes % 7 %; Monocytes # (M) 0.71 k/uL (0-1.0); Myelocytes % 13 %; Neutrophils # (M) 8.85 k/uL (1.3-7.7); Neutrophils % (M) 50 %; Nucleated Red Blood Cells 0 /100 WBC (0-0); Promyelocytes # (M) 0.53 k/uL (0); Promyelocytes % 3 %; Total Cells Counted 200
--- NOTE | 2020-09-10 11:34 | P.PN ---
Subjective This is a pleasant 75-year-old male currently undergoing chemotherapy. He is in the intensive care unit intubated on IV sedation. Currently maintained on IV cardizem, PO digoxin, by mouth amiodarone and PO lopressor for rate control. Current blood pressure 113/60 with a heart rate of 92. His FiO2 was increased. Laboratory data reviewed, WBC 17.7, hemoglobin 7.1, platelets 25, INR 1.4, fibrinogen less than 70, d-dimer 25, sodium 144, potassium 4.1, creatinine 0.99, pH 7.28, pCO2 39, pO2 71 and bicarb 18. CVP 8. Medication adjustments today per the quality systems technician include lasix infusion rather than IVP. Output of 3190 cc in the previous 24 hours. Maintaining a daily positive fluid balance. Weight is going up daily. He finished his last round of chemotherapy last night. GENERAL: No acute distress. NECK: Supple without JVD or thyromegaly. LUNGS: Clear to auscultation bilaterally. No rales, wheezes or rhonchi Respiration equal and unlabored. Diminished. HEART: Irregular rate and rhythm with systolic ejection murmur at the base, no rubs or gallops. S1 and S2 heard. EXTREMITIES: Normal range of motion, bilateral lower extremity trace pitting edema. No clubbing or cyanosis. Peripheral pulses intact. ASSESSMENT Paroxysmal atrial fibrillation/atrial flutter with rapid ventricular response. Status post cardioversion 2017 Acute on chronic diastolic heart failure on admission Acute systolic heart failure with evidence of possible takotsubo Aortic stenosis Hypertension Dyslipidemia Diabetes mellitus Anemia, requiring blood transfusion PLAN Continue current medical regimen. Prognosis guarded, further recommendations to follow. Nurse Practitioner note has been reviewed, I agree with a documented findings and plan of care. Patient was seen and examined. Objective - Vital Signs Vital signs: Vital Signs Temp 98.6 F 09/10/20 11:00 Pulse 92 09/10/20 11:00 Resp 34 H 09/10/20 11:00 BP 110/58 09/10/20 10:45 Pulse Ox 95 09/10/20 11:00 Intake & Output 09/09/20 09/10/20 09/10/20 18:59 06:59 18:59 Intake Total 3913.286 2304.556 1597.845 Output Total 2170 1020 745 Balance 0893.051 4081.556 852.845 Weight 114.1 kg 114.1 kg Intake: IV 1972 1322 805 Acyclovir Sodium 1,000 mg 500 250 500 In Sodium Chloride 0.9% 250 ml @ 270 mls/hr IVPB Q8HR ANA Rx#:[id number] Linezolid 600 mg In 300 Dextrose/Water 1 300ml. bag @ 150 mls/hr IVPB Q12HR ANA Rx#:[id number] Normal Saline Pressure 72 72 30 Bag Piperacillin-Tazobactam 3 200 100 100 .375 gm In Sodium Chloride 0.9% 100 ml @ 25 mls/hr IVPB Q8HR ANA Rx# :[id number] Sodium Chloride 0.45% 1, 900 900 175 000 ml @ 50 mls/hr IV . Q20H ANA Rx#:[id number] Intake, IV Titration 1212.286 487.556 431.845 Amount Anidulafungin 100 mg In 100 100 Sodium Chloride 0.9% 100 ml @ 84 mls/hr IVPB DAILY ANA Rx#:[id number] Cisatracurium 200 mg In 3.4 Sodium Chloride 0.9% 180 ml @ 0.5 MCG/KG/MIN 3.423 mls/hr IV .Q24H ANA Rx#: [id number] Cytarabine/Pf 210 mg In 462 42 Sodium Chloride 0.9% 1, 000 ml @ 42.104 mls/hr IV ONCE ONE Rx#:[id number] Diltiazem 125 mg In 96 125 86.083 Sodium Chloride 0.9% 100 ml @ 5 MG/HR 5 mls/hr IV .Q24H ANA Rx#:[id number] Furosemide 100 mg In 20 Sodium Chloride 0.9% 90 ml @ 10 MG/HR 10 mls/hr IV .Q10H ANA Rx#: [id number] Insulin Regular 100 unit 107.935 112.447 28.145 In Sodium Chloride 0.9% 100 ml @ Per Protocol IV .Q0M ANA Rx#:[id number] Norepinephrine 32 mg In 18.729 0.293 19.217 Sodium Chloride 0.9% 218 ml @ 0.06 MCG/KG/MIN 2. 776 mls/hr IV .Q24H ANA Rx#:[id number] Sodium Chloride 0.45% 1, 75 000 ml @ 50 mls/hr IV . Q20H ANA Rx#:[id number] propofoL 1,000 mg In 427.622 207.816 100.000 Empty Bag 1 bag @ Titrate IV .Q0M ANA Rx#: [id number] Tube Feeding 405 405 162 Blood Product 94 89 Pooled Cryoprecipitate 94 Unit [id number] Pooled Cryoprecipitate 89 Unit [id number] Other 230 90 110 Pooled Cryoprecipitate 50 Unit [id number] Pooled Cryoprecipitate 50 Unit [id number] Output: Urine 2170 1020 745 Other: Voiding Method Indwelling Catheter Indwelling Catheter # Bowel Movements 1 ABP, PAP, CO, CI - Last Documented Arterial Blood Pressure 113/60 - Labs CBC & Chem 7: 09/10/20 04:45 09/10/20 04:45 Labs: Abnormal Lab Results - Last 24 Hours (Table) 09/09/20 09/09/20 09/09/20 Range/Units 11:00 11:59 14:00 WBC (3.8-10.6) k/uL RBC (4.30-5.90) m/uL Hgb (13.0-17.5) gm/dL Hct (39.0-53.0) % RDW (11.5-15.5) % Plt Count (150-450) k/uL Blast Cells % % Neutrophils # (Manual) (1.3-7.7) k/uL Metamyelocytes # (Man) (0) k/uL Myelocytes # (Manual) (0) k/uL Promyelocytes # (Man) (0) k/uL Blast Cells # (Man) (0) k/uL PT 13.0 H (9.0-12.0) sec INR 1.3 H (<1.2) Fibrinogen (200-500) mg/dL D-Dimer (<0.60) mg/L FEU ABG pH (7.35-7.45) ABG pCO2 (35-45) mmHg ABG pO2 (83-108) mmHg ABG HCO3 (21-25) mmol/L ABG O2 Saturation (94-97) % Chloride (98-107) mmol/L Carbon Dioxide (22-30) mmol/L BUN (9-20) mg/dL Glucose (74-99) mg/dL POC Glucose (mg/dL) 162 H 171 H (75-99) mg/dL Calcium (8.4-10.2) mg/dL AST (17-59) U/L Total Protein (6.3-8.2) g/dL Albumin (3.5-5.0) g/dL 09/09/20 09/09/20 09/09/20 Range/Units 16:09 17:58 19:01 WBC (3.8-10.6) k/uL RBC (4.30-5.90) m/uL Hgb (13.0-17.5) gm/dL Hct (39.0-53.0) % RDW (11.5-15.5) % Plt Count (150-450) k/uL Blast Cells % % Neutrophils # (Manual) (1.3-7.7) k/uL Metamyelocytes # (Man) (0) k/uL Myelocytes # (Manual) (0) k/uL Promyelocytes # (Man) (0) k/uL Blast Cells # (Man) (0) k/uL PT (9.0-12.0) sec INR (<1.2) Fibrinogen (200-500) mg/dL D-Dimer (<0.60) mg/L FEU ABG pH (7.35-7.45) ABG pCO2 (35-45) mmHg ABG pO2 (83-108) mmHg ABG HCO3 (21-25) mmol/L ABG O2 Saturation (94-97) % Chloride (98-107) mmol/L Carbon Dioxide (22-30) mmol/L BUN (9-20) mg/dL Glucose (74-99) mg/dL POC Glucose (mg/dL) 165 H 102 H 169 H (75-99) mg/dL Calcium (8.4-10.2) mg/dL AST (17-59) U/L Total Protein (6.3-8.2) g/dL Albumin (3.5-5.0) g/dL 09/09/20 09/09/20 09/09/20 Range/Units 19:55 22:01 23:57 WBC (3.8-10.6) k/uL RBC (4.30-5.90) m/uL Hgb (13.0-17.5) gm/dL Hct (39.0-53.0) % RDW (11.5-15.5) % Plt Count (150-450) k/uL Blast Cells % % Neutrophils # (Manual) (1.3-7.7) k/uL Metamyelocytes # (Man) (0) k/uL Myelocytes # (Manual) (0) k/uL Promyelocytes # (Man) (0) k/uL Blast Cells # (Man) (0) k/uL PT (9.0-12.0) sec INR (<1.2) Fibrinogen (200-500) mg/dL D-Dimer (<0.60) mg/L FEU ABG pH (7.35-7.45) ABG pCO2 (35-45) mmHg ABG pO2 (83-108) mmHg ABG HCO3 (21-25) mmol/L ABG O2 Saturation (94-97) % Chloride (98-107) mmol/L Carbon Dioxide (22-30) mmol/L BUN (9-20) mg/dL Glucose (74-99) mg/dL POC Glucose (mg/dL) 176 H 205 H 206 H (75-99) mg/dL Calcium (8.4-10.2) mg/dL AST (17-59) U/L Total Protein (6.3-8.2) g/dL Albumin (3.5-5.0) g/dL 09/10/20 09/10/20 09/10/20 Range/Units 02:02 04:01 04:45 WBC (3.8-10.6) k/uL RBC (4.30-5.90) m/uL Hgb (13.0-17.5) gm/dL Hct (39.0-53.0) % RDW (11.5-15.5) % Plt Count (150-450) k/uL Blast Cells % % Neutrophils # (Manual) (1.3-7.7) k/uL Metamyelocytes # (Man) (0) k/uL Myelocytes # (Manual) (0) k/uL Promyelocytes # (Man) (0) k/uL Blast Cells # (Man) (0) k/uL PT 13.6 H (9.0-12.0) sec INR 1.4 H (<1.2) Fibrinogen <70 L* (200-500) mg/dL D-Dimer 25.73 H (<0.60) mg/L FEU ABG pH (7.35-7.45) ABG pCO2 (35-45) mmHg ABG pO2 (83-108) mmHg ABG HCO3 (21-25) mmol/L ABG O2 Saturation (94-97) % Chloride (98-107) mmol/L Carbon Dioxide (22-30) mmol/L BUN (9-20) mg/dL Glucose (74-99) mg/dL POC Glucose (mg/dL) 192 H 167 H (75-99) mg/dL Calcium (8.4-10.2) mg/dL AST (17-59) U/L Total Protein (6.3-8.2) g/dL Albumin (3.5-5.0) g/dL 09/10/20 09/10/20 09/10/20 Range/Units 04:45 04:45 07:47 WBC 17.7 H (3.8-10.6) k/uL RBC 2.14 L (4.30-5.90) m/uL Hgb 7.1 L (13.0-17.5) gm/dL Hct 20.0 L (39.0-53.0) % RDW 19.8 H (11.5-15.5) % Plt Count 25 L (150-450) k/uL Blast Cells % 8 H* % Neutrophils # (Manual) 8.85 H (1.3-7.7) k/uL Metamyelocytes # (Man) 1.24 H (0) k/uL Myelocytes # (Manual) 2.30 H (0) k/uL Promyelocytes # (Man) 0.53 H (0) k/uL Blast Cells # (Man) 1.42 H (0) k/uL PT (9.0-12.0) sec INR (<1.2) Fibrinogen (200-500) mg/dL D-Dimer (<0.60) mg/L FEU ABG pH 7.34 L (7.35-7.45) ABG pCO2 34 L (35-45) mmHg ABG pO2 75 L (83-108) mmHg ABG HCO3 18 L (21-25) mmol/L ABG O2 Saturation (94-97) % Chloride 121 H (98-107) mmol/L Carbon Dioxide 19 L (22-30) mmol/L BUN 43 H (9-20) mg/dL Glucose 158 H (74-99) mg/dL POC Glucose (mg/dL) (75-99) mg/dL Calcium 7.6 L (8.4-10.2) mg/dL AST 66 H (17-59) U/L Total Protein 4.5 L (6.3-8.2) g/dL Albumin 2.3 L (3.5-5.0) g/dL 09/10/20 09/10/20 09/10/20 Range/Units 08:15 09:38 10:21 WBC (3.8-10.6) k/uL RBC (4.30-5.90) m/uL Hgb (13.0-17.5) gm/dL Hct (39.0-53.0) % RDW (11.5-15.5) % Plt Count (150-450) k/uL Blast Cells % % Neutrophils # (Manual) (1.3-7.7) k/uL Metamyelocytes # (Man) (0) k/uL Myelocytes # (Manual) (0) k/uL Promyelocytes # (Man) (0) k/uL Blast Cells # (Man) (0) k/uL PT (9.0-12.0) sec INR (<1.2) Fibrinogen (200-500) mg/dL D-Dimer (<0.60) mg/L FEU ABG pH 7.28 L (7.35-7.45) ABG pCO2 (35-45) mmHg ABG pO2 71 L (83-108) mmHg ABG HCO3 18 L (21-25) mmol/L ABG O2 Saturation 91.7 L (94-97) % Chloride (98-107) mmol/L Carbon Dioxide (22-30) mmol/L BUN (9-20) mg/dL Glucose (74-99) mg/dL POC Glucose (mg/dL) 141 H 181 H (75-99) mg/dL Calcium (8.4-10.2) mg/dL AST (17-59) U/L Total Protein (6.3-8.2) g/dL Albumin (3.5-5.0) g/dL Microbiology - Last 24 Hours (Table) 09/06/20 09:15 Blood Culture - Preliminary Blood No Growth after 96 hours 09/04/20 11:11 Blood Culture - Preliminary Blood No Growth after 120 hours 09/06/20 11:16 Gram Stain - Final Sputum Sputum Culture - Final [place] albicans [place] glabrata
[2020-09-10 12:06] LABS: Glucose,Whole Blood 169 mg/dL (75-99)
--- NOTE | 2020-09-10 12:27 | XR ---
EXAMINATION TYPE: XR chest 1V portable DATE OF EXAM: 09/10/2020 COMPARISON: 09/09/2020 INDICATION: Assess lungs TECHNIQUE: Single frontal view of the chest is obtained. FINDINGS: The heart size is normal. The pulmonary vasculature is normal. There are patchy infiltrates present diffusely. This is more focal in the right lower lobe. Findings are worsening over the interval. Endotracheal tube tip is above the raine. Left central venous catheter tip is in the superior vena c sigrid region. Nasogastric tube transverses the thorax. EKG leads overlie the chest. IMPRESSION: 1. Worsening diffuse bilateral lung infiltrates. This is more focal the right lower lobe. Correlate f or pneumonia. Atypical pneumonia should be considered. Follow-up exams are recommended.
[2020-09-10 13:54] LABS: Glucose,Whole Blood 171 mg/dL (75-99)
--- NOTE | 2020-09-10 15:03 | XR ---
EXAMINATION TYPE: XR chest 1V portable DATE OF EXAM: 09/10/2020 COMPARISON: 09/10/2020 INDICATION: Low O2 saturation TECHNIQUE: Single frontal view of the chest is obtained. FINDINGS: The heart size is normal. The pulmonary vasculature is indistinct. There is diffuse increased lung markings throughout the bilateral lungs. This have worsened over the interval. Correlate for acute respiratory distress syndrome. Endotracheal tube tip is above the raine. Nasogastric tube transverses the thorax. Left central veno us catheter tip in superior vena cava region. IMPRESSION: 1. Diffuse increased lung markings seen from prior. Correlate for acute respiratory distress syndrome . 2. Lines and catheters discussed above
[2020-09-10 15:26] LABS: ABG Base Excess -9.2 mmol/L; ABG HCO3 18 mmol/L (21-25); ABG Oxygen Saturation 90.7 % (94-97); ABG PCO2 41 mmHg (35-45); ABG PH 7.25 (7.35-7.45); ABG PO2 66 mmHg (83-108); ABG TCO2 19 mmol/L (19-24); Allen Test Performed? Yes
[2020-09-10 15:28] VITALS: RESP 38
--- NOTE | 2020-09-10 15:31 | P.PN ---
Subjective Progress Note Date: 09/10/20 Principal diagnosis: Acute hypoxic respiratory failure with bilateral pneumonia in immunocompromised host. 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 The patient got transferred to the intensive care unit yesterday because of an acute hypoxic respiratory failure/acute lung injury with development of bilateral pulmonary infiltrates. Note that the patient was originally hospitalized on 08/24/2024 shortness of breath and difficulty breathing. The patient is known to have chronic atrial fibrillation along with hypertension and hyperlipidemia. He was also being seen by cardiology regarding atrial fibrillation. As the patient developed breath and pulmonary infiltrates and acute hypoxic respiratory failure, the patient a chest to the intensive care unit and he was placed on a BiPAP at a pressure of 14/5 cm of water. FiO2 was as high as 90% and it was being titrated. The patient also had been placed on broad-spectrum antibiotics including IV Zosyn. He was being diuresis with IV Lasix 40 mg every 12 hours. He was on a Cardizem drip at 15 mg an hour to control atrial fibrillation. Remains on Decadron 5 mg IV every 6 hours. The chest x-ray as mentioned shows interval development of bilateral perihilar pulmonary infiltrates which are currently diffuse. The patient demonstrated gradual improvement in the white cell count from a baseline of 0.7 up to 20 and the platelet count is up to 79 with a hemoglobin of 8.0. The patient did not receive any packed RBC transfusions. The differential count shows 46% blasts. Renal function is impaired in the creatinine is 1.47 as the patient is being diuresed. Uric acid level is up to 8.9 with a calcium level of 8.3 and phosphorus level of 5.8 and LDH level was as high as 5244 indicating the possibility of a tumor lysis syndrome. Based on that, the patient was given a dose of respirator he carries yesterday and urine acid level is improved considerably. The echo from last month showed a preserved LV function with an ejection fraction of 6065%. The patient has mild MR, RV is mildly enlarged. Note that the patient over progressively more short of breath and hypoxic. At point, the patient was intubated and placed on a mechanical ventilator. I saw this patient this morning. The patient was already intubated on a mechanical ventilator on assist control mode with a rate of 24 with a tidal volume of 450 and FiO2 of 50% with a PEEP of 10. The blood gas showed a pH of 7.42 with a pCO2 of 40 and pO2 of 104. This was on FiO2 of 60%. The patient was sedated with propofol running at 75 mg per KG per minute. The patient is also on insulin at 5 units an hour for blood sugar control. The patient is on norepinephrine infusion at 0.06 units per KG per minute. Cardizem drip is running at 50 mg an hour in regards to her atrial fibrillation. The heart rate is in the order of 110-120. He is afebrile. Chest x-rays showing bilateral pulmonary infiltrates, stable compared to yesterday. immediately a bronchoscopy was done and the bronchioloalveolar lavage of the right middle lobe was collected as there was a concern of an underlying infection. The patient is currently on IV Zosyn. Lasix was discontinued. On 09/01/2020, the patient is being seen in follow-up in the intensive care unit. The patient remains intubated on a mechanical ventilator. This morning the patient is sedated with propofol at the rate of 45 g per KG per minute. The patient remains on mechanical ventilator on assist control mode at the rate of 24 with a tidal volume of 450 and FiO2 of 40% with a PEEP of 10. Blood gases from today showed a pH of 7.44 with a pCO2 of 38 and pO2 of 152. Chest x-ray still showing diffuse bilateral pulmonary infiltrates slightly improved compared to yesterday. Oxidation is also improved. Based on that, I made recommendation s to gradually wean off the PEEP down to 5 cm of water. The patient unfortunately continues to be in atrial fibrillation. The patient is not adequately controlled. The patient is on a Cardizem drip at 15 mg an hour. The patient is also on amiodarone 0.5 mg an hour and the patient is also on meto prolol 100 mg by mouth 3 times a day. The patient is being supported with norepinephrine infusion for blood pressure support at the rate of 0.06 mg per KG per minute. The patient is afebrile. The patient is currently on IV Zosyn. The patient's bronchoscopy and the bronchioloalveolar lavage was done yesterday and the patient does not have any possible microbial growth for now. No fever. No chills. He is receiving daily Lasix 40 mg IV push to maintain adequate fluid balance. In terms of hematologic profile, the white cell count is up to 28 and the patient has 12% blast cells. The platelet count is at 96 with a hemoglobin of 7.3. The patient is currently on Hydrea the patient is also on Decadron. Discussed the case with oncology. We will hold off the ATRA treatment as the patient has gone into differentiation syndrome. On 09/02/2020, I'm seeing the patient for a follow-up in the intensive care unit. The patient remains intubated on a mechanical ventilator. This morning the patient remains on propofol at 50 g per KG per minute. The patient is also on a mechanical ventilator at the rate of 24 with a tidal volume of 450 and FiO2 of 40% with a PEEP of 5. Chest x-ray is showing stable bilateral pulmonary infiltrates without any major change compared to yesterday. Meanwhile the blood gases from today showed a pH of 7.47 with a pCO2 of 34 and pO2 of 110. The patient remains in atrial fibrillation on obviously it has been very difficult to control the rate. He is not a candidate for cardioversion and the patient cannot take any anticoagulants. 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 In terms of his A. 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 Digoxin was also added by cardiology. Heart rate is ranging between 110 and 130, irregular. He is afebrile. He is covered with Zosyn. The bronchoscopy and bronchial alveolar lavage done earlier yielded no microbial growth. The patient remains on Decadron. The patient remains on Hydrea. LDH is on the rise. White cell count today is at 26.4. Platelet count is at 91. The patient is 54% blasts and off and sleepy is a sign of progression of his underlying AML. The BUN is at 53 with a creatinine of 1.05. The patient was given daily Lasix and the patient's fluid balance has been +7 40 mL over the past 24 hours. The patient is on enteral feeding for nutritional support. The patient is well sedated. A sedation holiday was given today. He was taken off the propofol and subsequently became more tachycardic and restless and asynchronous with a mechanical ventilator and the procedure had to be aborted and the patient was p laced back on sedation. On 09/03/2020, seeing this patient for a follow-up in the intensive care unit and the patient is doing poorly. The patient remains sedated on a mechanical ventilator. The patient is on propofol infusion running at 60 g per KG per minute. The patient is on a mechanical ventilator session the same vent setting is yesterday with a rate of 24 with a tidal volume of 450 and FiO2 of 40% with a PEEP of 5. The blood gases showed a pH of 7.49 with a pCO2 of 33 and pO2 of 94. Chest x-ray findings are essentially stable. Nevertheless, the patient continues to be in atrial fibrillation with a rapid ventricular response and has been very difficult to control his heart rate. He is currently on a combination of Cardizem drip at 15 mg an hour and addition to amiodarone drip at 0.5 mg per minute and metoprolol at a dose of 100 mg by mouth 3 times a day. He is also on digoxin 0.25 mg on a daily basis. The patient is still having A. fib RVR despite this ongoing treatment for rate control. His heart rate is ranging between 120 and 160, irregular and the patient is also requiring norepinephrine infusion for blood pressure control and the patient is currently on levo fed running at 7 g per minute. Cardiology is on the case and the patient will not be cardioverted based on our ability to provide him any anticoagulants at the time of cardioversion. Hematologically, he is still in acute leukemic crisis. The patient platelet count is at 106. The patient has a 57% blasts. LDH pulses on the rise the patient has a BUN of 50 with a creatinine of 1.0. Uric acid is up to 2.4. Bilirubin is at 0.9, AST slightly elevated at 104. The patient was given Hydrea by hematology oncology at were unable to give him because of our inability to crushed medication. He is on Decadron 5 mg every 6 hours. The patient is afebrile. The patient on IV Zosyn. The bronchioloalveolar lavage was negative. Chest x-ray findings are stable. The neck fluid balance is in order of 34 1 mL positive and the patient is receiving daily Lasix dose of 40 mg IV push. On 09/04/2020, the patient remains intubated on a mechanical ventilator. As stated earlier, the patient was started on systemic therapy with cytarabine and this was started last night. This morning, the patient assist-control mode of ventilation at the rate of 24 with a tidal volume of 500 and FiO2 of 50% and a PEEP of 5. The patient's is sedated with propofol. The patient was having bouts of fever overnight and the patient's had a T-max of 102.2. The patient was given Tylenol. Cultures were sent. Noted the bronchoscopy and the bronchioloalveolar lavage done earlier showed no evidence of any microbial growth. 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 The chest x-ray still showing some pains right infrahilar and more prominent left basilar infiltrate/atelectasis. No new infiltration seen.. The patient remains in atrial fibrillation. Heart rate is still quite tachycardic and the patient c ontinues to be on Cardizem drip at 15mg an hour in addition to metoprolol 100 mg by mouth 3 times a day, digoxin 250 g daily basis and amiodarone that has been switched to oral at a dose of 5 mg by mouth twice a day. The patient is still requiring low-dose norepinephrine infusion for blood pressure support which is running at 0.02 mg per KG per minute. I started the patient IV fluid and the patient was going on systemic chemotherapy and currently is on normal saline at rate of 70 mL an hour. The patient is taking insulin drip at 14 units an hour. He remains on IV Zosyn. Note that the hematologic profile is still quite abnormal. The white cell count is at 66.9. The patient has 46% blasts in the peripheral smear. Platelet counts at 76. The LDH remains elevated at 10,336. Renal function is stable with a BUN of 47 with a creatinine of 0.9. Uric acid level is at 2.6. Calcium level level is at 7.3. On 09/05/2020, the patient is still doing poorly. The patient is completing [facility] chemotherapy regarding the acute AML crisis. Hematologically, the patient continues to have increased level of blasts in his peripheral smear addition to leukocytosis and elevated LDH. The patient is completing a course of cytarabine. Meanwhile, the patient is still sedated on mechanical ventilator. He is on propofol for sedation running at 60 g per KG per minute. I'll be unable to cut down his sedation as the patient becomes severely tachycardic restless and LUAN inhibitor the mechanical ventilator once of sedation. In terms of his cardiac status, heart rate is still tachycardic and in A. fib rhythm. Despite a combination of metoprolol 100 mg 3 times a day, Cardizem 50 mg an ho ur, amiodarone 400 mg twice a day and digoxin to 50 mg on a daily basis, the patient continues to be quite tachycardic. He is on no anticoagulants for now. He was having episodes of fever and the fever workup included a bronchoscopy and the bronchioloalveolar lavage that showed HSV-1 with some candidal elements. For that reason the patient was given a combination of acyclovir, Aguilar in combination with Zosyn as broad-spectrum antibiotic coverage. The patient is off pressors this morning. He is on a assist-control mode at the rate of 24 with a tidal volume of 500 and FiO2 of 40% with a PEEP of 5. Blood gas show pH of 7.46 with a pCO2 of 30-121 oxygen. The patient's chest x-ray shows increased interstitial infiltrates bilaterally which are somewhat stable compared to yesterday, probably slightly worse on the right. He is receiving daily Lasix doses. The fluid balance has been essentially slightly positive in order of +1 L over the past 24 hours. The patient is on insulin drip at 50 units an hour. He is receiving enteral feeding for nutritional support. No other significant events overnight. On 09/06/2020, the patient is still doing poorly. He is completing the chemot herapy. He remains sedated and unable to come off the sedation as the patient becomes quite breathless agitated tachycardic while off sedation. For that reason the patient is on 60 g of propofol infusion. Breath settings are essentially the same with an assist-control mode at the rate of 24 with a tidal volume of 500 and FiO2 of 40% with a PEEP of 5. PH is 7.43 with a pCO2 of 31 pO2 of 87. He is still having episodic low-grade fever. [place] was cultured from the bronchioloalveolar lavage in addition to HSV and the patient was covered with a combination of Zosyn, acyclovir and Eraxis. Repeat cultures be obtained accordingly. Meanwhile, the patient is currently off pressors. A. fib is still active although less tachycardic to prior evaluation. He remains on a combination of metoprolol, amiodarone, Cardizem drip and digoxin. He is receiving enteral feeding for nutritional support with vital high protein at the rate of 20 mL an hour. As mentioned is completing systemic chemotherapy with cytarabine. The white cell count of 32 with a 11 of 7.4. Platelet count is a 75. The patient continues to 47% blasts in the peripheral smear. Correlation profile is decent. The sodium level is up to 148 with a potassium level of 5.2 and a chloride of 123. The BUN is 41 with a creatinine of 1.06. Patient was reevaluated today on 09/07/20, remains in the ICU, intubated and mechanically ventilated his ventilator settings are volume control plus with tidal volume is 500 rate of 24, FiO2 40% and PEEP of 5. ABG showed a pO2 of 91 pCO2 of 30 pH of 7.43. Patient is off propofol this morning to assess mental status, and it seems to be a bit appropriate. He is on Cardizem drip as well as enteral feeding, and his IV fluid is at 75 mL per hour. Patient received 2 units of packed RBC this morning for hemoglobin of 6.4. And that being managed by hematology/oncology on the case. Patient remains on Zyvox, Zosyn, acyclovir, and Eraxis. Patient was intubated on 08/30, and he remains on mechanical ventilation since then. Labs today with abnormal with hemoglobin of 6.4 blasts cells are 57%. Platelets are 52,000. Sodium is 147 potassium 4.2 chloride is 122 BUN is 42 creatinine 0.87. LDH is coming down it is 10,264 today, uric acid is 3.0. Patient was reevaluated today on 09/08/20, remains in the ICU, intubated, mechanically ventilated. His ventilator settings are assist control rate of 24 tidal volume is 500 FiO2 is 40% and PEEP of 5. ABG showed a pO2 of 84 pCO2 of 27 pH of 7.47. Patient is on multiple drips, Cardizem at 15 mg per hour, insulin at 7 units per hour, she is also on propofol at 25 mcg/kg/m, off norepinephrine. Patient is sedated, however I plan to wean sedation down, and assess mental status. I'm also cutting down his Cardizem today to 10 mg per hour. All his labs were reviewed, LDH seems to be coming down, however the patient is receiving cryoprecipitate, fibrinogen is quite low today. It was felt by oncology that the patient may be having a low-grade DIC. Uric acid remains under control. And again his LDH is improving platelets are 35,000 sitting chest x-ray continues to show bibasilar infiltrates. Patient was reevaluated today on 09/09/20, remains in the ICU, intubated and mechanically ventilated. His ventilator settings are assist control rate of 24, volume control +500, FiO2 50%, PEEP is 5. ABG showed pO2 of 60 pCO2 of 33 pH of 7.41. Patient remains on insulin at 7 units per hour, Cardizem at 10 units per hour, IV fluid at 30 cc per hour, FiO2 was increased to 50%, patient is on enteral feeding, tolerating feeding well. He is on Nepro. Receiving chemotherapy again today for AML. Chest x-ray continues to show improvement in his by basilar infiltrates. No further spikes noted in the last 24 hours. Patient remains in atrial fibrillation, rate seems to be controlled with Cardizem at 10 mg per hour fibrinogen is noted to be low again, patient may receive cryoprecipitate again today Patient was reevaluated today on 09/10/20, patient has deteriorated significantly in the last 24 hours. His oxygen requirement has increased significantly, his chest x-ray is much worse, patient is showing a picture of i nterstitial edema, this could be cardiogenic or noncardiogenic/ARDS. I had to increase his FiO2 to 100%, decreased his tidal volume to 450, increased his assist-control rate to 34, and increase his PEEP to 10. Also placed the patient on a Lasix drip. Patient is 3+ liters fluid balance in the last 24 hours. And his weight is significantly higher. I believe the patient is fluid overloaded. Remains on multiple drips including Cardizem, I cut it down to 5 mg per hour, propofol at 75 mcg/kg/m, insulin at 8 units per hour. norepinephrine at 0.02 mcg/kg/m, patient is on multiple antibiotics, and antiviral therapy. His also on antifungal therapy. I believe this patient is doing extremely poorly, and his prognosis is extremely poor and guarded. ABG earlier today on 100% showed a pO2 of 75 pCO2 of 34 pH of 7.34. Since then his ventilator settings were adjusted. Continues to have low hemoglobin, low platelets of 25,000, low fibrinogen of less than 70, repeat ABG this afternoon showed a pO2 of 71 pCO2 of 39 and pH of 7.28. Again this is 100% FiO2. Repeat chest x-ray this afternoon showed diffuse interstitial infiltrates/edema. Worsening significantly compared to the last 24 hours Objective - Vital Signs Vital signs: Vital Signs Temp 98.4 F 09/10/20 14:00 Pulse 93 09/10/20 14:00 Resp 34 H 09/10/20 14:00 BP 110/58 09/10/20 10:45 Pulse Ox 87 L 09/10/20 14:00 Intake & Output 09/09/20 09/10/20 09/10/20 18:59 06:59 18:59 Intake Total 3913.286 2304.556 2263.431 Output Total 2170 1020 1095 Balance 7771.838 0811.556 1168.431 Weight 114.1 kg 114.1 kg Intake: IV 1972 1322 973 Acyclovir Sodium 1,000 mg 500 250 500 In Sodium Chloride 0.9% 250 ml @ 270 mls/hr IVPB Q8HR ANA Rx#:[id number] Linezolid 600 mg In 300 Dextrose/Water 1 300ml. bag @ 150 mls/hr IVPB Q12HR ANA Rx#:[id number] Normal Saline Pressure 72 72 48 Bag Piperacillin-Tazobactam 3 200 100 100 .375 gm In Sodium Chloride 0.9% 100 ml @ 25 mls/hr IVPB Q8HR ANA Rx# :[id number] Sodium Chloride 0.45% 1, 900 900 325 000 ml @ 50 mls/hr IV . Q20H ANA Rx#:[id number] Intake, IV Titration 1212.286 487.556 708.431 Amount Anidulafungin 100 mg In 100 100 Sodium Chloride 0.9% 100 ml @ 84 mls/hr IVPB DAILY ANA Rx#:[id number] Cisatracurium 200 mg In 13.6 Sodium Chloride 0.9% 180 ml @ 0.5 MCG/KG/MIN 3.423 mls/hr IV .Q24H ANA Rx#: [id number] Cytarabine/Pf 210 mg In 462 42 Sodium Chloride 0.9% 1, 000 ml @ 42.104 mls/hr IV ONCE ONE Rx#:[id number] Diltiazem 125 mg In 96 125 86.083 Sodium Chloride 0.9% 100 ml @ 5 MG/HR 5 mls/hr IV .Q24H ANA Rx#:[id number] Diltiazem 125 mg In 15 Sodium Chloride 0.9% 100 ml @ 5 MG/HR 5 mls/hr IV .Q24H ANA Rx#:[id number] Furosemide 100 mg In 50 Sodium Chloride 0.9% 90 ml @ 10 MG/HR 10 mls/hr IV .Q10H ANA Rx#: [id number] Insulin Regular 100 unit 107.935 112.447 46.847 In Sodium Chloride 0.9% 100 ml @ Per Protocol IV .Q0M ANA Rx#:[id number] Norepinephrine 32 mg In 18.729 0.293 21.901 Sodium Chloride 0.9% 218 ml @ 0.06 MCG/KG/MIN 2. 776 mls/hr IV .Q24H ANA Rx#:[id number] Sodium Chloride 0.45% 1, 75 000 ml @ 50 mls/hr IV . Q20H ANA Rx#:[id number] propofoL 1,000 mg In 427.622 207.816 300.000 Empty Bag 1 bag @ Titrate IV .Q0M ANA Rx#: [id number] Tube Feeding 405 405 202 Blood Product 94 190 Pooled Cryoprecipitate 94 Unit [id number] Pooled Cryoprecipitate 101 Unit [id number] Pooled Cryoprecipitate 89 Unit [id number] Rc Irr As1 Unit 0 [id number] Other 230 90 190 Pooled Cryoprecipitate 50 Unit [id number] Pooled Cryoprecipitate 50 Unit [id number] Pooled Cryoprecipitate 50 Unit [id number] Output: Urine 2170 1020 1095 Other: Voiding Method Indwelling Catheter Indwelling Catheter Indwelling Catheter # Bowel Movements 1 1 ABP, PAP, CO, CI - Last Documented Arterial Blood Pressure 92/51 - Exam -GENERAL: Revealed a 75-year-old white male on mechanical ventilation, paralyzed sedated and on narcotics when necessary. HEENT: Pale looking. PERRLA, EOMI, no icterus, no neck masses, no JVD, orogastric tube and endotracheal tube are intact. CARDIOVASCULAR: Normal S1 and S2, no S3 gallop. PULMONARY: Crackles at the bases, diffuse rhonchi bilaterally. ABDOMEN: Obese, soft, nontender, no megaly, no rebound, no guarding. MUSCULOSKELETAL: No deformities. -EXTREMITIES: No clubbing or cyanosis, 2+ bipedal edema. NEUROLOGICAL: Could not be assessed, sedated and paralyzed placed on Nimbex and remains on propofol SKIN: No rashes. no petechiae. Psychiatric: Could not be assessed - Labs CBC & Chem 7: 09/10/20 04:45 09/10/20 04:45 Labs: Abnormal Lab Results - Last 24 Hours (Table) 09/09/20 09/09/20 09/09/20 Range/Units 16:09 17:58 19:01 WBC (3.8-10.6) k/uL RBC (4.30-5.90) m/uL Hgb (13.0-17.5) gm/dL Hct (39.0-53.0) % RDW (11.5-15.5) % Plt Count (150-450) k/uL Blast Cells % % Neutrophils # (Manual) (1.3-7.7) k/uL Metamyelocytes # (Man) (0) k/uL Myelocytes # (Manual) (0) k/uL Promyelocytes # (Man) (0) k/uL Blast Cells # (Man) (0) k/uL PT (9.0-12.0) sec INR (<1.2) Fibrinogen (200-500) mg/dL D-Dimer (<0.60) mg/L FEU ABG pH (7.35-7.45) ABG pCO2 (35-45) mmHg ABG pO2 (83-108) mmHg ABG HCO3 (21-25) mmol/L ABG O2 Saturation (94-97) % Chloride (98-107) mmol/L Carbon Dioxide (22-30) mmol/L BUN (9-20) mg/dL Glucose (74-99) mg/dL POC Glucose (mg/dL) 165 H 102 H 169 H (75-99) mg/dL Calcium (8.4-10.2) mg/dL AST (17-59) U/L Total Protein (6.3-8.2) g/dL Albumin (3.5-5.0) g/dL Crossmatch 09/09/20 09/09/20 09/09/20 Range/Units 19:55 22:01 23:57 WBC (3.8-10.6) k/uL RBC (4.30-5.90) m/uL Hgb (13.0-17.5) gm/dL Hct (39.0-53.0) % RDW (11.5-15.5) % Plt Count (150-450) k/uL Blast Cells % % Neutrophils # (Manual) (1.3-7.7) k/uL Metamyelocytes # (Man) (0) k/uL Myelocytes # (Manual) (0) k/uL Promyelocytes # (Man) (0) k/uL Blast Cells # (Man) (0) k/uL PT (9.0-12.0) sec INR (<1.2) Fibrinogen (200-500) mg/dL D-Dimer (<0.60) mg/L FEU ABG pH (7.35-7.45) ABG pCO2 (35-45) mmHg ABG pO2 (83-108) mmHg ABG HCO3 (21-25) mmol/L ABG O2 Saturation (94-97) % Chloride (98-107) mmol/L Carbon Dioxide (22-30) mmol/L BUN (9-20) mg/dL Glucose (74-99) mg/dL POC Glucose (mg/dL) 176 H 205 H 206 H (75-99) mg/dL Calcium (8.4-10.2) mg/dL AST (17-59) U/L Total Protein (6.3-8.2) g/dL Albumin (3.5-5.0) g/dL Crossmatch 09/10/20 09/10/20 09/10/20 Range/Units 02:02 04:01 04:45 WBC (3.8-10.6) k/uL RBC (4.30-5.90) m/uL Hgb (13.0-17.5) gm/dL Hct (39.0-53.0) % RDW (11.5-15.5) % Plt Count (150-450) k/uL Blast Cells % % Neutrophils # (Manual) (1.3-7.7) k/uL Metamyelocytes # (Man) (0) k/uL Myelocytes # (Manual) (0) k/uL Promyelocytes # (Man) (0) k/uL Blast Cells # (Man) (0) k/uL PT 13.6 H (9.0-12.0) sec INR 1.4 H (<1.2) Fibrinogen <70 L* (200-500) mg/dL D-Dimer 25.73 H (<0.60) mg/L FEU ABG pH (7.35-7.45) ABG pCO2 (35-45) mmHg ABG pO2 (83-108) mmHg ABG HCO3 (21-25) mmol/L ABG O2 Saturation (94-97) % Chloride (98-107) mmol/L Carbon Dioxide (22-30) mmol/L BUN (9-20) mg/dL Glucose (74-99) mg/dL POC Glucose (mg/dL) 192 H 167 H (75-99) mg/dL Calcium (8.4-10.2) mg/dL AST (17-59) U/L Total Protein (6.3-8.2) g/dL Albumin (3.5-5.0) g/dL Crossmatch 09/10/20 09/10/20 09/10/20 Range/Units 04:45 04:45 07:47 WBC 17.7 H (3.8-10.6) k/uL RBC 2.14 L (4.30-5.90) m/uL Hgb 7.1 L (13.0-17.5) gm/dL Hct 20.0 L (39.0-53.0) % RDW 19.8 H (11.5-15.5) % Plt Count 25 L (150-450) k/uL Blast Cells % 8 H* % Neutrophils # (Manual) 8.85 H (1.3-7.7) k/uL Metamyelocytes # (Man) 1.24 H (0) k/uL Myelocytes # (Manual) 2.30 H (0) k/uL Promyelocytes # (Man) 0.53 H (0) k/uL Blast Cells # (Man) 1.42 H (0) k/uL PT (9.0-12.0) sec INR (<1.2) Fibrinogen (200-500) mg/dL D-Dimer (<0.60) mg/L FEU ABG pH 7.34 L (7.35-7.45) ABG pCO2 34 L (35-45) mmHg ABG pO2 75 L (83-108) mmHg ABG HCO3 18 L (21-25) mmol/L ABG O2 Saturation (94-97) % Chloride 121 H (98-107) mmol/L Carbon Dioxide 19 L (22-30) mmol/L BUN 43 H (9-20) mg/dL Glucose 158 H (74-99) mg/dL POC Glucose (mg/dL) (75-99) mg/dL Calcium 7.6 L (8.4-10.2) mg/dL AST 66 H (17-59) U/L Total Protein 4.5 L (6.3-8.2) g/dL Albumin 2.3 L (3.5-5.0) g/dL Crossmatch 09/10/20 09/10/20 09/10/20 Range/Units 08:15 09:38 10:15 WBC (3.8-10.6) k/uL RBC (4.30-5.90) m/uL Hgb (13.0-17.5) gm/dL Hct (39.0-53.0) % RDW (11.5-15.5) % Plt Count (150-450) k/uL Blast Cells % % Neutrophils # (Manual) (1.3-7.7) k/uL Metamyelocytes # (Man) (0) k/uL Myelocytes # (Manual) (0) k/uL Promyelocytes # (Man) (0) k/uL Blast Cells # (Man) (0) k/uL PT (9.0-12.0) sec INR (<1.2) Fibrinogen (200-500) mg/dL D-Dimer (<0.60) mg/L FEU ABG pH 7.28 L (7.35-7.45) ABG pCO2 (35-45) mmHg ABG pO2 71 L (83-108) mmHg ABG HCO3 18 L (21-25) mmol/L ABG O2 Saturation 91.7 L (94-97) % Chloride (98-107) mmol/L Carbon Dioxide (22-30) mmol/L BUN (9-20) mg/dL Glucose (74-99) mg/dL POC Glucose (mg/dL) 141 H (75-99) mg/dL Calcium (8.4-10.2) mg/dL AST (17-59) U/L Total Protein (6.3-8.2) g/dL Albumin (3.5-5.0) g/dL Crossmatch See Detail 09/10/20 09/10/20 09/10/20 Range/Units 10:21 12:04 13:53 WBC (3.8-10.6) k/uL RBC (4.30-5.90) m/uL Hgb (13.0-17.5) gm/dL Hct (39.0-53.0) % RDW (11.5-15.5) % Plt Count (150-450) k/uL Blast Cells % % Neutrophils # (Manual) (1.3-7.7) k/uL Metamyelocytes # (Man) (0) k/uL Myelocytes # (Manual) (0) k/uL Promyelocytes # (Man) (0) k/uL Blast Cells # (Man) (0) k/uL PT (9.0-12.0) sec INR (<1.2) Fibrinogen (200-500) mg/dL D-Dimer (<0.60) mg/L FEU ABG pH (7.35-7.45) ABG pCO2 (35-45) mmHg ABG pO2 (83-108) mmHg ABG HCO3 (21-25) mmol/L ABG O2 Saturation (94-97) % Chloride (98-107) mmol/L Carbon Dioxide (22-30) mmol/L BUN (9-20) mg/dL Glucose (74-99) mg/dL POC Glucose (mg/dL) 181 H 169 H 171 H (75-99) mg/dL Calcium (8.4-10.2) mg/dL AST (17-59) U/L Total Protein (6.3-8.2) g/dL Albumin (3.5-5.0) g/dL Crossmatch Microbiology - Last 24 Hours (Table) 09/04/20 11:11 Blood Culture - Final Blood No Growth after 144 hours 09/06/20 09:15 Blood Culture - Preliminary Blood No Growth after 96 hours Assessment and Plan Assessment: Impression: Acute hypoxic respiratory failure, seems to be significantly worse today compared to the last 24 hours. With worsening chest x-ray, worsening oxygenation, and worsening overall clinical condition. Acute bilateral pulmonary infiltrates, differential diagnoses includes pneumonia or lung injury from promyelocytic leukemia treatment. Patient is immunocompromised, he is definitely a set up for infection. Tumor lysis syndrome Acute leukemic crisis with elevated level of blasts with anemia and thrombocy topenia patient is receiving cytarabine chemotherapy. Acute promyelocytic leukemia Type 2 diabetes. Requiring insulin drip. Chronic atrial fibrillation. Remains on Cardizem, cut the dose down to 5 mg per hour. Dyslipidemia. Acute kidney injury on presentation, improving since admission. History of poliomyelitis as a child. History of psoriasis. History of obstructive sleep apnea syndrome. Benign essential hypertension. Mild DIC. Recommendation: Continue ventilatory support. Increase PEEP and adjust accordingly. Increase FiO2. Increase assist control rate. Started patient on Lasix drip. Continue antibiotics and antiviral therapy. And antifungal. Continue present cardiac meds to control his atrial fibrillation. Continue systemic chemotherapy Transfused with platelets and blood as needed. Continue enteral feeding. Monitor daily labs for tumor lysis syndrome. Continue sedation , and now paralysis. Continue to monitor and correct daily electrolytes. Overall prognosis remains definitely poor and guarded, Approach family about CODE STATUS, patient is doing extremely poor today, and I am certain that the patient will not survive this illness. We'll continue to follow. Critical care time is 40 minutes. Time with Patient: Greater than 30
[2020-09-10] MEDS ORDERED: SODIUM CHLORIDE 0.45% 1,000 ML IV SCH (15:38)
[2020-09-10] MEDS ORDERED: DEXTROSE 5% IN WATER 1,000 ML with SODIUM BICARB (1 MEQ/ML) 150 ML IV SCH (16:00)
[2020-09-10 16:01] LABS: Glucose,Whole Blood 164 mg/dL (75-99)
--- NOTE | 2020-09-10 17:11 | P.PN ---
Progress Note - Text Progress Note Date: 09/10/20 Presenting complaint: Tired Interval history: This is a patient who was recently diagnosed with promyelocytic leukemia. On chemotherapy. Went to CHF and atrial fibrillation with rapid ventricular rate. Transferred to telemetry floor. 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 started on IV dexamethasone. Put on a Cardizem drip. Requiring high flow oxygen. Given IV Lasix. On August [address] on BiPAP, transferred to ICU. Intubated Patient also to acute kidney injury. Also went into atrial flutter with rapid ventricular rate. Put on IV Cardizem drip. Patient been treated with antiviral, antifungal, IV Cardizem. Bronchial washings did show mickey., Also in the sputum [id number] on the ventilator. FiO2 100 PEEP of 10. Edema present. Sedated. Telemetry shows sinus rhythm. Current drips include Lasix at 10 mg an hour, Cardizem at 5 mg an hour, norepinephrine, Nimbex, IV insulin, Diprivan at 75 mics. 2 feeding at 10 mL an hour. Review of systems: Patient intubated Active Medications Acetaminophen (Acetaminophen Tab 500 Mg Tab) 500 mg PO Q4HR PRN PRN Reason: Fever and/ or Pain Last Admin: 09/10/20 05:52 Dose: 500 mg Documented by: Hydrocodone Bitart/Acetaminophen (Hydrocodone/Apap 10-325mg 1 Each Tab) 1 each PO QID PRN PRN Reason: Pain Last Admin: 09/03/20 12:38 Dose: 1 each Documented by: Al Hydroxide/Mg Hydroxide (Mag Hydrox/Al Hydrox/Simeth 30 Ml Cup) 30 ml PO Q4HR PRN PRN Reason: GI Upset Last Admin: 08/29/20 02:27 Dose: 30 ml Documented by: Amiodarone HCl (Amiodarone 200 Mg Tab) 200 mg PO BID [facility] Last Admin: 09/10/20 10:26 Dose: 200 mg Documented by: Atorvastatin Calcium (Atorvastatin 10 Mg Tab) 10 mg PO HS [facility] Last Admin: 09/09/20 20:15 Dose: 10 mg Documented by: Chlorhexidine Gluconate (Chlorhexidine Gluconate 15 Ml Cup) 15 ml MUCOUS MEM BID [facility] Last Admin: 09/10/20 10:27 Dose: 15 ml Documented by: Dexamethasone Sodium Phosphate (Dexamethasone Sod Phosphate 4 Mg/Ml 1 Ml Vial) 5 mg IV Q6HR [facility] Last Admin: 09/10/20 11:32 Dose: 5 mg Documented by: Digoxin (Digoxin 250 Mcg Tab) 250 mcg PO DAILY [facility] Last Admin: 09/10/20 10:26 Dose: 250 mcg Documented by: Gabapentin (Gabapentin 100 Mg Cap) 100 mg PO TID [facility] Last Admin: 09/10/20 16:04 Dose: 100 mg Documented by: Hydromorphone HCl (Hydromorphone 1 Mg/Ml 1 Ml Syringe) 1 mg IVP Q3HR PRN PRN Reason: Pain Last Admin: 09/10/20 13:45 Dose: 1 mg Documented by: Propofol 1,000 mg/ IV Solution 100 mls @ 0 mls/hr IV .Q0M [facility]; Protocol Last Admin: 09/10/20 16:58 Dose: 75 mcg/kg/min, 51.345 mls/hr Documented by: Insulin Human Regular 100 unit (/ Sodium Chloride) 101 mls @ 0 mls/hr IV .Q0M [facility]; Protocol Last Titration: 09/10/20 12:05 Dose: 9 units/hr, 9.09 mls/hr Documented by: Norepinephrine Bitartrate 32 (mg/ Sodium Chloride) 250 mls @ 2.776 mls/hr IV .Q24H [facility]; Protocol Last Titration: 09/10/20 10:00 Dose: 0.04 mcg/kg/min, 1.851 mls/hr Documented by: Piperacillin Sod/Tazobactam (Sod 3.375 gm/ Sodium Chloride) 100 mls @ 25 mls/hr IVPB Q8HR [facility] Last Admin: 09/10/20 15:52 Dose: 25 mls/hr Documented by: Acyclovir Sodium 1,000 mg/ (Sodium Chloride) 270 mls @ 270 mls/hr IVPB Q8HR [facility] Last Admin: 09/10/20 15:52 Dose: 270 mls/hr Documented by: Anidulafungin 100 mg/ Sodium (Chloride) 100 mls @ 84 mls/hr IVPB DAILY [facility] Last Admin: 09/10/20 09:56 Dose: 84 mls/hr Documented by: Linezolid 600 mg/ IV Solution 300 mls @ 150 mls/hr IVPB Q12HR [facility]; Protocol Last Admin: 09/10/20 09:55 Dose: 150 mls/hr Documented by: Furosemide 100 mg/ Sodium (Chloride) 100 mls @ 10 mls/hr IV .Q10H [facility] Last Admin: 09/10/20 15:45 Dose: 10 mg/hr, 10 mls/hr Documented by: Cisatracurium Besylate 200 mg/ (Sodium Chloride) 200 mls @ 3.423 mls/hr IV .Q24H [facility]; Protocol Last Admin: 09/10/20 10:31 Dose: 0.5 mcg/kg/min, 3.423 mls/hr Documented by: Diltiazem HCl 125 mg/ Sodium (Chloride) 125 mls @ 5 mls/hr IV .Q24H [facility] Last Admin: 09/10/20 11:29 Dose: Not Given Documented by: Sodium Bicarbonate 150 ml/ (Dextrose/Water) 1,150 mls @ 50 mls/hr IV .Q23H [facility] Last Admin: 09/10/20 16:19 Dose: 50 mls/hr Documented by: Sodium Chloride (Saline 0.45%) 1,000 mls @ 20 mls/hr IV .Q24H [facility] Last Admin: 09/10/20 16:03 Dose: 20 mls/hr Documented by: Insulin Human Regular (Insulin Regular Bolus (From Drip Bag)) 9.9 unit 0.1 unit/kg (9.9 unit) IV ONCE PRN PRN Reason: Blood Sugar - High Stop: 09/30/20 21:00 Magnesium Oxide (Magnesium Oxide 400 Mg Tab) 400 mg PO DAILY [facility] Last Admin: 09/10/20 10:42 Dose: Not Given Documented by: Metoprolol Tartrate (Metoprolol Tartrate 50 Mg Tab) 100 mg PO TID [facility] Last Admin: 09/10/20 16:04 Dose: Not Given Documented by: Miscellaneous Information (Potassium Replacement Protocol 1 Each Misc) 1 each MISCELLANE DAILY PRN; Protocol PRN Reason: Per Protocol Miscellaneous Information (Magnesium Replacement Protocol 1 Each Misc) 1 each MISCELLANE DAILY PRN; Protocol PRN Reason: Per Protocol Pantoprazole Sodium (Pantoprazole 40 Mg/10 Ml Vial) 40 mg IVP BID [facility] Last Admin: 09/10/20 08:06 Dose: 40 mg Documented by: Potassium Chloride (Potassium Chloride Er 20 Meq Tab.Er) 20 meq PO BID [facility] Last Admin: 09/10/20 10:26 Dose: 20 meq Documented by: Senna (Sennosides 8.6 Mg Tab) 8.6 mg PO DAILY [facility] Last Admin: 09/10/20 09:50 Dose: Not Given Documented by: Tamsulosin HCl (Tamsulosin 0.4 Mg Cap.Er.24h) 0.4 mg PO BID [facility] Last Admin: 09/10/20 10:26 Dose: 0.4 mg Documented by: On examination: VITAL SIGNS: 98.4, 92, 38, 97/53, 88% on the ventilator GENERAL APPEARANCE: in bed, intubated, sedated HEENT: Endotracheal tube, OG tube EYES: Pupils equal. Conjunctiva normal. NECK: JVD unable to assess. Mass not palpable. RESPIRATORY: Respiratory effort increased. , decreased breath sounds. CARDIOVASCULAR: Heart sounds irregular, edema present ABDOMEN: Soft. Liver and spleen not palpable. No tenderness. No mass palpable. PSYCHIATRY: Sedated INVESTIGATIONS, reviewed in the clinical context: White count 7.7 hemoglobin 7.1 rate is 25 blast cells 8%, pro time 13.6 fibrinogen less than 70 d-dimer 25.7, potassium 4.1 bun 43 creatinine 0.99 albumin 2.3 Chest x-ray film personally reviewed by me-bilateral patchy infiltrate Previous testing White count 1.5 hemoglobin 8.3 platelets 52 blast cells 30% Potassium 3.8 creatinine 1.24 blood glucose 276 lactic acid 3.5 uric acid 1.3 Chest x-ray film personally reviewed by me-pulmonary edema 2-D echocardiogram from last month showed EF 60-65% Assessment: -Persistent atrial flutter-fibrillation with a rapid ventricular rate,-better controlled -Acute congestive heart failure exacerbation from diastolic dysfunction EF 60- 65%, precipitated by atrial flutter fibrillation with a rapid ventricular rate- improved -Acute hypoxic respiratory failure requiring ventilator support.-Worsening, 100% FiO2 -Questionable pneumonia. Though infiltrates could be from leukocytes from the differential syndrome. - Differential syndrome with treatment of APL with arsenic worsening blast cells-started on cytarabine -completed course -Hypotensive shock-requiring pressor support-uncontrolled -Diabetes mellitus type 2, uncontrolled with hyperglycemia secondary to steroids-on insulin drip -Essential hypertension, history of -Hyperlipidemia -Primary osteoarthritis -Obstructive sleep apnea uses CPAP -Childhood polio -Primary osteoarthritis -Promyelocytic leukemia-started on induction treatment with arsenic trioxide and Atra-went into differential then started on cytarabine on September 04-completed course -Acute kidney injury,-improved Plan: Patient remains critically ill. On multiple medications and supportive care. Broad-spectrum of antibiotics and antifungals. Discussed with Dr. thompson from oncology. Plan is to continue current medication treatment plan. Prognosis remains guarded.
--- NOTE | 2020-09-10 17:32 | P.PN ---
Subjective Progress Note Date: 09/10/20 Principal diagnosis: APL Pt seen in f/u, sedated, intubated. Objective - Vital Signs Vital signs: Vital Signs Temp 98.4 F 09/10/20 16:00 Pulse 100 09/10/20 17:00 Resp 38 H 09/10/20 17:00 BP 102/60 09/10/20 16:00 Pulse Ox 88 L 09/10/20 17:00 Intake & Output 09/09/20 09/10/20 09/10/20 18:59 06:59 18:59 Intake Total 3913.286 2304.556 3495.798 Output Total 2170 1020 1315 Balance 0553.727 3216.556 2180.798 Weight 114.1 kg 114.1 kg Intake: IV 1972 1322 1441 Acyclovir Sodium 1,000 mg 500 250 750 In Sodium Chloride 0.9% 250 ml @ 270 mls/hr IVPB Q8HR [facility] Rx#:[id number] Linezolid 600 mg In 300 Dextrose/Water 1 300ml. bag @ 150 mls/hr IVPB Q12HR [facility] Rx#:[id number] Normal Saline Pressure 72 72 66 Bag Piperacillin-Tazobactam 3 200 100 200 .375 gm In Sodium Chloride 0.9% 100 ml @ 25 mls/hr IVPB Q8HR [facility] Rx# :[id number] Sodium Chloride 0.45% 1, 900 900 425 000 ml @ 50 mls/hr IV . Q20H [facility] Rx#:[id number] Intake, IV Titration 1212.286 206.462 1601.798 Amount Anidulafungin 100 mg In 100 100 Sodium Chloride 0.9% 100 ml @ 84 mls/hr IVPB DAILY [facility] Rx#:[id number] Cisatracurium 200 mg In 23.8 Sodium Chloride 0.9% 180 ml @ 0.5 MCG/KG/MIN 3.423 mls/hr IV .Q24H [facility] Rx#: [id number] Cytarabine/Pf 210 mg In 462 42 Sodium Chloride 0.9% 1, 000 ml @ 42.104 mls/hr IV ONCE ONE Rx#:[id number] Dextrose 5% in Water 1, 100 000 ml @ 50 mls/hr IV . Q23H [facility] with Sodium Bicarb (1 Meq/ml) 150 ml Rx#:[id number] Diltiazem 125 mg In 96 125 86.083 Sodium Chloride 0.9% 100 ml @ 5 MG/HR 5 mls/hr IV .Q24H [facility] Rx#:[id number] Diltiazem 125 mg In 30 Sodium Chloride 0.9% 100 ml @ 5 MG/HR 5 mls/hr IV .Q24H [facility] Rx#:[id number] Furosemide 100 mg In 119.167 Sodium Chloride 0.9% 90 ml @ 10 MG/HR 10 mls/hr IV .Q10H [facility] Rx#: [id number] Insulin Regular 100 unit 107.935 112.447 46.847 In Sodium Chloride 0.9% 100 ml @ Per Protocol IV .Q0M [facility] Rx#:[id number] Norepinephrine 32 mg In 18.729 0.293 21.901 Sodium Chloride 0.9% 218 ml @ 0.06 MCG/KG/MIN 2. 776 mls/hr IV .Q24H [facility] Rx#:[id number] Sodium Chloride 0.45% 1, 40 000 ml @ 20 mls/hr IV . Q24H [facility] Rx#:[id number] Sodium Chloride 0.45% 1, 75 000 ml @ 50 mls/hr IV . Q20H [facility] Rx#:[id number] propofoL 1,000 mg In 427.622 207.816 400.000 Empty Bag 1 bag @ Titrate IV .Q0M [facility] Rx#: [id number] Tube Feeding 405 405 242 Blood Product 94 500 Pooled Cryoprecipitate 94 Unit [id number] Pooled Cryoprecipitate 101 Unit [id number] Pooled Cryoprecipitate 89 Unit [id number] Rc Irr As1 Unit 310 [id number] Other 230 90 270 Pooled Cryoprecipitate 50 Unit [id number] Pooled Cryoprecipitate 50 Unit [id number] Pooled Cryoprecipitate 50 Unit [id number] Rc Irr As1 Unit 50 [id number] Output: Urine 2170 1020 1315 Other: Voiding Method Indwelling Catheter Indwelling Catheter Indwelling Catheter # Bowel Movements 1 1 ABP, PAP, CO, CI - Last Documented Arterial Blood Pressure 92/55 - Constitutional General appearance: Present: obese - Respiratory Respiratory: bilateral: diminished - Cardiovascular Details: anasarca Heart sounds: normal: S1, S2 - Gastrointestinal General gastrointestinal: Present: distended - Neurologic Neurologic Comment(s): paralytic, unable to assess Neurologic: Absent: CNII-XII intact, focal deficits - Psychiatric Psychiatric: Absent: A&O x's 3, appropriate affect, intact judgment & insight - Labs CBC & Chem 7: 09/10/20 04:45 09/10/20 04:45 Labs: Abnormal Lab Results - Last 24 Hours (Table) 09/09/20 09/09/20 09/09/20 Range/Units 17:58 19:01 19:55 WBC (3.8-10.6) k/uL RBC (4.30-5.90) m/uL Hgb (13.0-17.5) gm/dL Hct (39.0-53.0) % RDW (11.5-15.5) % Plt Count (150-450) k/uL Blast Cells % % Neutrophils # (Manual) (1.3-7.7) k/uL Metamyelocytes # (Man) (0) k/uL Myelocytes # (Manual) (0) k/uL Promyelocytes # (Man) (0) k/uL Blast Cells # (Man) (0) k/uL PT (9.0-12.0) sec INR (<1.2) Fibrinogen (200-500) mg/dL D-Dimer (<0.60) mg/L FEU ABG pH (7.35-7.45) ABG pCO2 (35-45) mmHg ABG pO2 (83-108) mmHg ABG HCO3 (21-25) mmol/L ABG O2 Saturation (94-97) % Chloride (98-107) mmol/L Carbon Dioxide (22-30) mmol/L BUN (9-20) mg/dL Glucose (74-99) mg/dL POC Glucose (mg/dL) 102 H 169 H 176 H (75-99) mg/dL Calcium (8.4-10.2) mg/dL AST (17-59) U/L Total Protein (6.3-8.2) g/dL Albumin (3.5-5.0) g/dL Crossmatch 09/09/20 09/09/20 09/10/20 Range/Units 22:01 23:57 02:02 WBC (3.8-10.6) k/uL RBC (4.30-5.90) m/uL Hgb (13.0-17.5) gm/dL Hct (39.0-53.0) % RDW (11.5-15.5) % Plt Count (150-450) k/uL Blast Cells % % Neutrophils # (Manual) (1.3-7.7) k/uL Metamyelocytes # (Man) (0) k/uL Myelocytes # (Manual) (0) k/uL Promyelocytes # (Man) (0) k/uL Blast Cells # (Man) (0) k/uL PT (9.0-12.0) sec INR (<1.2) Fibrinogen (200-500) mg/dL D-Dimer (<0.60) mg/L FEU ABG pH (7.35-7.45) ABG pCO2 (35-45) mmHg ABG pO2 (83-108) mmHg ABG HCO3 (21-25) mmol/L ABG O2 Saturation (94-97) % Chloride (98-107) mmol/L Carbon Dioxide (22-30) mmol/L BUN (9-20) mg/dL Glucose (74-99) mg/dL POC Glucose (mg/dL) 205 H 206 H 192 H (75-99) mg/dL Calcium (8.4-10.2) mg/dL AST (17-59) U/L Total Protein (6.3-8.2) g/dL Albumin (3.5-5.0) g/dL Crossmatch 09/10/20 09/10/20 09/10/20 Range/Units 04:01 04:45 04:45 WBC 17.7 H (3.8-10.6) k/uL RBC 2.14 L (4.30-5.90) m/uL Hgb 7.1 L (13.0-17.5) gm/dL Hct 20.0 L (39.0-53.0) % RDW 19.8 H (11.5-15.5) % Plt Count 25 L (150-450) k/uL Blast Cells % 8 H* % Neutrophils # (Manual) 8.85 H (1.3-7.7) k/uL Metamyelocytes # (Man) 1.24 H (0) k/uL Myelocytes # (Manual) 2.30 H (0) k/uL Promyelocytes # (Man) 0.53 H (0) k/uL Blast Cells # (Man) 1.42 H (0) k/uL PT 13.6 H (9.0-12.0) sec INR 1.4 H (<1.2) Fibrinogen <70 L* (200-500) mg/dL D-Dimer 25.73 H (<0.60) mg/L FEU ABG pH (7.35-7.45) ABG pCO2 (35-45) mmHg ABG pO2 (83-108) mmHg ABG HCO3 (21-25) mmol/L ABG O2 Saturation (94-97) % Chloride (98-107) mmol/L Carbon Dioxide (22-30) mmol/L BUN (9-20) mg/dL Glucose (74-99) mg/dL POC Glucose (mg/dL) 167 H (75-99) mg/dL Calcium (8.4-10.2) mg/dL AST (17-59) U/L Total Protein (6.3-8.2) g/dL Albumin (3.5-5.0) g/dL Crossmatch 09/10/20 09/10/20 09/10/20 Range/Units 04:45 07:47 08:15 WBC (3.8-10.6) k/uL RBC (4.30-5.90) m/uL Hgb (13.0-17.5) gm/dL Hct (39.0-53.0) % RDW (11.5-15.5) % Plt Count (150-450) k/uL Blast Cells % % Neutrophils # (Manual) (1.3-7.7) k/uL Metamyelocytes # (Man) (0) k/uL Myelocytes # (Manual) (0) k/uL Promyelocytes # (Man) (0) k/uL Blast Cells # (Man) (0) k/uL PT (9.0-12.0) sec INR (<1.2) Fibrinogen (200-500) mg/dL D-Dimer (<0.60) mg/L FEU ABG pH 7.34 L (7.35-7.45) ABG pCO2 34 L (35-45) mmHg ABG pO2 75 L (83-108) mmHg ABG HCO3 18 L (21-25) mmol/L ABG O2 Saturation (94-97) % Chloride 121 H (98-107) mmol/L Carbon Dioxide 19 L (22-30) mmol/L BUN 43 H (9-20) mg/dL Glucose 158 H (74-99) mg/dL POC Glucose (mg/dL) 141 H (75-99) mg/dL Calcium 7.6 L (8.4-10.2) mg/dL AST 66 H (17-59) U/L Total Protein 4.5 L (6.3-8.2) g/dL Albumin 2.3 L (3.5-5.0) g/dL Crossmatch 09/10/20 09/10/20 09/10/20 Range/Units 09:38 10:15 10:21 WBC (3.8-10.6) k/uL RBC (4.30-5.90) m/uL Hgb (13.0-17.5) gm/dL Hct (39.0-53.0) % RDW (11.5-15.5) % Plt Count (150-450) k/uL Blast Cells % % Neutrophils # (Manual) (1.3-7.7) k/uL Metamyelocytes # (Man) (0) k/uL Myelocytes # (Manual) (0) k/uL Promyelocytes # (Man) (0) k/uL Blast Cells # (Man) (0) k/uL PT (9.0-12.0) sec INR (<1.2) Fibrinogen (200-500) mg/dL D-Dimer (<0.60) mg/L FEU ABG pH 7.28 L (7.35-7.45) ABG pCO2 (35-45) mmHg ABG pO2 71 L (83-108) mmHg ABG HCO3 18 L (21-25) mmol/L ABG O2 Saturation 91.7 L (94-97) % Chloride (98-107) mmol/L Carbon Dioxide (22-30) mmol/L BUN (9-20) mg/dL Glucose (74-99) mg/dL POC Glucose (mg/dL) 181 H (75-99) mg/dL Calcium (8.4-10.2) mg/dL AST (17-59) U/L Total Protein (6.3-8.2) g/dL Albumin (3.5-5.0) g/dL Crossmatch See Detail 09/10/20 09/10/20 09/10/20 Range/Units 12:04 13:53 15:17 WBC (3.8-10.6) k/uL RBC (4.30-5.90) m/uL Hgb (13.0-17.5) gm/dL Hct (39.0-53.0) % RDW (11.5-15.5) % Plt Count (150-450) k/uL Blast Cells % % Neutrophils # (Manual) (1.3-7.7) k/uL Metamyelocytes # (Man) (0) k/uL Myelocytes # (Manual) (0) k/uL Promyelocytes # (Man) (0) k/uL Blast Cells # (Man) (0) k/uL PT (9.0-12.0) sec INR (<1.2) Fibrinogen (200-500) mg/dL D-Dimer (<0.60) mg/L FEU ABG pH 7.25 L (7.35-7.45) ABG pCO2 (35-45) mmHg ABG pO2 66 L (83-108) mmHg ABG HCO3 18 L (21-25) mmol/L ABG O2 Saturation 90.7 L (94-97) % Chloride (98-107) mmol/L Carbon Dioxide (22-30) mmol/L BUN (9-20) mg/dL Glucose (74-99) mg/dL POC Glucose (mg/dL) 169 H 171 H (75-99) mg/dL Calcium (8.4-10.2) mg/dL AST (17-59) U/L Total Protein (6.3-8.2) g/dL Albumin (3.5-5.0) g/dL Crossmatch 09/10/20 Range/Units 15:59 WBC (3.8-10.6) k/uL RBC (4.30-5.90) m/uL Hgb (13.0-17.5) gm/dL Hct (39.0-53.0) % RDW (11.5-15.5) % Plt Count (150-450) k/uL Blast Cells % % Neutrophils # (Manual) (1.3-7.7) k/uL Metamyelocytes # (Man) (0) k/uL Myelocytes # (Manual) (0) k/uL Promyelocytes # (Man) (0) k/uL Blast Cells # (Man) (0) k/uL PT (9.0-12.0) sec INR (<1.2) Fibrinogen (200-500) mg/dL D-Dimer (<0.60) mg/L FEU ABG pH (7.35-7.45) ABG pCO2 (35-45) mmHg ABG pO2 (83-108) mmHg ABG HCO3 (21-25) mmol/L ABG O2 Saturation (94-97) % Chloride (98-107) mmol/L Carbon Dioxide (22-30) mmol/L BUN (9-20) mg/dL Glucose (74-99) mg/dL POC Glucose (mg/dL) 164 H (75-99) mg/dL Calcium (8.4-10.2) mg/dL AST (17-59) U/L Total Protein (6.3-8.2) g/dL Albumin (3.5-5.0) g/dL Crossmatch Microbiology - Last 24 Hours (Table) 09/04/20 11:11 Blood Culture - Final Blood No Growth after 144 hours 09/06/20 09:15 Blood Culture - Preliminary Blood No Growth after 96 hours - Imaging and Cardiology Chest x-ray: report reviewed Assessment and Plan (1) 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 Started on 09/08. Not clear if there was possibly differentiation syndrome. Patient was also having difficulty with his cardiac status. His current ejection fraction is 30-35%. Patient's blast percentage was at 8 today, platelets 25,000, hemoglobin 7.1. Blast count is significantly improved but, patient has multiple complex comorbidities that are coming into play. Critical Care team going to discuss the case with Dr. Anderson. Current Visit: Yes Status: Acute Priority: High Code(s): C92.40 - ACUTE PROMYELOCYTIC LEUKEMIA, NOT HAVING ACHIEVED REMISSION SNOMED Code(s): 829822377 (2) DIC (disseminated intravascular coagulation) Narrative/Plan: Coags remain elevated, fibrinogen was less than 70 this morning. Patient received cryoprecipitate 2 doses. Patient currently has no gross evidence of bleeding. Hemoglobin is stable. Labs daily Current Visit: Yes Status: Acute Priority: High Code(s): D65 - DISSEMINATED INTRAVASCULAR COAGULATION SNOMED Code(s): 02308304
[2020-09-10 18:04] LABS: Glucose,Whole Blood 147 mg/dL (75-99)
--- NOTE | 2020-09-10 18:58 | PN ---
PROGRESS NOTE DATE OF SERVICE: 09/10/2020 REASON FOR FOLLOWUP: Pneumonia. INTERVAL HISTORY: The patient is currently afebrile with a low-grade fever of 99.7 this morning. The patient is hemodynamically stable. However, the patient was noted to have worsening of his respiratory status and is currently on 100% FiO2. The patient did have more secretions through his ET per the respiratory therapist this morning. No vomiting has been reported or any worsening diarrhea. PHYSICAL EXAMINATION: Blood pressure 116/56, pulse of 93, temperature 98.4. General description is an elderly male lying in bed in no distress. RESPIRATORY SYSTEM: Unlabored breathing with decreased intensity of breath sounds. No wheeze. HEART: S1, S2. Regular rate and rhythm. ABDOMEN: Soft. No tenderness. LABS: Hemoglobin 7.1, white count 17.7, BUN of 43, creatinine 0.99. DIAGNOSTIC IMPRESSION AND PLAN: Patient with acute respiratory failure which is multifactorial with concern for possible pneumonia. This patient is currently broadly covered with Zosyn and Zyvox and Eraxis, with some worsening of his respiratory status. Repeat culture has been ordered and antibiotic will be adjusted on the basis of the culture report. Overall prognosis remains guarded. MMODL / IJN: [id number] / ELMER
[2020-09-10 20:14] LABS: Glucose,Whole Blood 168 mg/dL (75-99)
[2020-09-10] MEDS: ATORVASTATIN 10 MG TAB PO SCH (20:42)
[2020-09-10 22:05] LABS: Glucose,Whole Blood 191 mg/dL (75-99)
[2020-09-10 22:13] VITALS: TEMP 98.6
[2020-09-11 00:59] VITALS: BP 55/40; PULSE 30
--- NOTE | 2020-09-14 09:19 | CDI ---
Documentation Clarification Form Date: 09/14/2020 09:02:13 AM From: Maura StarrJacobsonCRISS carr, CCDS Admit Date: 08/24/2020 04:29:00 PM Patient Name: Aroldo Samson Visit Number: [id number] Discharge Date: 09/10/2020 11:01:00 PM ATTENTION: The Clinical Documentation Specialists (CDI) and [facility] Coding Staff appreciate your assistance in clarifying documentation. Please respond to the clarification below the line at the bottom and electronically sign. The CDI & [facility] Coding staff will review the response and follow-up if needed. Please note: Queries are made part of the Legal Health Record. If you have any questions, please contact the author of this message via ITS. Dr. Archie Galvez: Atrial Flutter is documented in the 08/27 Attending Progress Note and subsequent Progress Notes: "Persistent atrial flutter-fibrillation with a rapid ventricular rate. Acute congestive heart failure exacerbation from diastolic dysfunction EF 60- 65%, precipitated by atrial flutter and fibrillation with a rapid ventricular rate-slow to respond." Atrial Flutter is also documented in the 09/02 Cardiology Progress Note & subsequent Progress Notes: "He continues to be atrial flutter with rapid rates. Currently up around 140." History/Risk factors: Paroxysmal Atrial Fibrillation on Coumadin, Diastolic CHF, Hypertension, Hyperlipidemia, DM II, Moderate Aortic Stenosis, CVA. Clinical Indicators: Presented for initiation of chemotherapy for newly diagnosed Acute Promyelocytic Leukemia. EKG 08/24: R 72 Sinus rhythm w/frequent PVCs. EKG 08/26: R 123 Atrial Fibrillation with variable AV block w/PVCs. EKG 08/29: R 153 Atrial flutter with variable AV block w/PACs. EKG 08/29: R 133 Atrial flutter with variable AV block w/PACs. EKG 09/02: R 134 Atrial flutter with variable AV block w/PVCs or PACs. Treatment 08/24: po Norvasc, po Lopressor. 08/25: po Lasix, IV MagSulfate, IV Lopressor. 08/26: IV Lasix, IV Cardizem. 08/27: IV Cardizem, po KDur, po Cardizem. 08/29 IV Cardizem. 09/01: IV Amiodarone. 09/08: po Amiodarone. In your professional opinion, in order to capture the severity of condition; can you please clarify the type of Atrial Flutter if known? Typical/Type I Atypical/Type II Other, please specify Unable to determine (Last Revision: February 2018) Typical atrial flutter MTDD
--- NOTE | 2020-09-14 09:55 | CDI ---
Documentation Clarification Form Date: 09/14/2020 09:27:22 AM From: Maura Jacobson CCS, CCDS Admit Date: 08/24/2020 04:29:00 PM Patient Name: Aroldo Samson Visit Number: [id number] Discharge Date: 09/10/2020 11:01:00 PM ATTENTION: The Clinical Documentation Specialists (CDI) and [facility] Coding Staff appreciate your assistance in clarifying documentation. Please respond to the clarification below the line at the bottom and electronically sign. The CDI & [facility] Coding staff will review the response and follow-up if needed. Please note: Queries are made part of the Legal Health Record. If you have any questions, please contact the author of this message via ITS. Dr. Justin Cortes: Per the 08/30 Pulmonary Consult: "Acute hypoxemic respiratory failure, which may relate to acute lung injury, fluid overload, and/or pneumonia." Per the 09/10 Medical Management Progress Note: "Questionable pneumonia. Though infiltrates could be from leukocytes from the differential syndrome." Per the 09/10 Infectious Disease Progress Note: "Patient with acute respiratory failure which is multifactorial with concern for possible pneumonia. This patient is currently broadly covered with Zosyn and Zyvox and Eraxis, with some worsening of his respiratory status." History/Risk Factors: Paroxysmal Atrial fibrillation, DM II, Hypertension, Hyperlipidemia, Diastolic CHF, ANIBAL, CVA. Clinical Indicators: Patient presented to start chemotherapy for newly diagnosed APL. VS 08/24: Stable. VS 08/25: HR elevated/irregular: 107-109. VS 08/26: T 97.5*, P 163^, R 20, PO 92 2Lnc. VS 09/01: T 100, P 112 - 165, R 28, PO 75 - 86 on 100 vent. VS 09/06: T 102.9^, P 137^ - 168, R 25 - 30^, 93 - 97 on vent. LAB: Pancytopenia due to APL & Chemotherapy. Cultures: 08/30 Sputum cx: negative, 08/31 Bronchial Washings: negative, Fungal cx: [place] albicans. 09/04 Blood cx: neg. Sputum Cx: neg. Urine cx: neg. 09/06 Urine & Blood cx: neg. Sputum Cx: [place] albicans, 10/15 Sputum cx: Staphylococcus aureus. RAD: 08/26 CXR: COPD, Correlate for CHF vs interstitial pneumonia or atypical pneumonia. 08/28 CXR: Persistent patchy perihilar and basilar infiltrates may reflect pneumonia. 08/29 CXR: Pneumonia not excluded. 08/31 CXR: Bilateral diffuse infiltrates. Correlate for pneumonia. 09/03 CXR: Mild left lower lobe infiltrate. 09/09 CXR: Worsening diffuse bilateral lung infiltrates, Correlate for pneumonia, Atypical pneumonia should be considered. Treatment: Chemotherapy started 08/24. Intubated on 08/30 with respiratory failure, IV Zosyn, Zyvox, Acyclovir & Eraxis. In order to capture the severity of condition, please clarify if the condition signifies and you are treating for: Pneumonia is ruled out Bacterial Pneumonia, specify causal organism (if known) Viral Pneumonia, specify casual organism (if known) Healthcare Acquired Pneumonia/Pneumonia, unspecified Other, please specify Unable to determine (Last Revision: February 2018) Possible pneumonia, suspect gram-negative organism MTDD
--- NOTE | 2020-09-14 14:10 | CDI ---
Documentation Clarification Form Date: 09/14/2020 01:56:07 PM From: Maura Jacobson CCS, CCDS Admit Date: 08/24/2020 04:29:00 PM Patient Name: Aroldo Samson Visit Number: [id number] Discharge Date: 09/10/2020 11:01:00 PM ATTENTION: The Clinical Documentation Specialists (CDI) and [facility] Coding Staff appreciate your assistance in clarifying documentation. Please respond to the clarification below the line at the bottom and electronically sign. The CDI & [facility] Coding staff will review the response and follow-up if needed. Please note: Queries are made part of the Legal Health Record. If you have any questions, please contact the author of this message via ITS. Dr. Archie Galvez: Conflicting documentation has been found in the medical record: Per the 09/03 Cardiology Progress Note: "Acute systolic heart failure." Per the 09/05 Cardiology Progress Note: "History of cardioversion 2018. Acute on chronic systolic heart failure." Per the 09/07 Cardiology Progress Note: "Status post cardioversion 2018. Acute on chronic diastolic heart failure on admission. Acute systolic heart failure with evidence of possible Takotsubo. Aortic stenosis. Per the 09/10 Attending Progress Note: " Acute congestive heart failure exacerbation from diastolic dysfunction EF 60-65%." History/Risk Factors: Chronic diastolic and/or systolic heart failure, Paroxysmal Atrial Fibrillation, IDDM II, Hypertension, Hyperlipidemia, ANIBAL, Morbid Obesity with BMI 39.4 & Primary Osteoarthritis. Clinical Indicators: Patient presented on 08/24 for initiation of chemotherapy to treat newly diagnosed Acute Promyelocytic Leukemia. 09/02 ECHO to assess aortic valve & pericardial effusion: Difficult study. Mild LVH, left systolic function mod-severely impaired w/EF 30-35%, Mod aortic stenosis, Mild-mod MR, Mild-mod mitral stenosis. Mild TR, Mild pulmonary hypertension. No pericardial effusion. Treatment: 08/25: po Lasix. 08/26 - 08/27: IV Lasix, IV Cardizem (Atrial Fibrillation). Intubated on 08/30 with Acute Hypoxic Respiratory Failure & Hypotensive Shock requiring pressors. 09/01: IV Lasix. 09/10-09/11: IV Lasix. In your opinion, please clarify the acuity and the type of CHF the patient was diagnosed with and treated for: Acute Systolic CHF Chronic Systolic CHF Acute on Chronic Systolic CHF Acute Diastolic CHF Chronic Diastolic CHF Acute on Chronic Diastolic CHF Acute Combined Systolic & Diastolic CHF Chronic Combined Systolic & Diastolic CHF Acute on Chronic Combined Systolic & Diastolic CHF Unable to determine (Last Revision: February 2018) Please see above what was written by myself. My diagnosis has not changed. Acute on chronic systolic heart failure. Please do not inquire when I have written my diagnosis clearly. MTDD
--- NOTE | 2020-09-21 12:58 | CDI ---
Documentation Clarification Form Date: 09/21/2020 12:37:29 PM From: Mellissa Fox RN. CCDDS Admit Date: 08/24/2020 04:29:00 PM Patient Name: Aroldo Samson Visit Number: [id number] Discharge Date: 09/10/2020 11:01:00 PM ATTENTION: The Clinical Documentation Specialists (CDI) and [facility] Coding Staff appreciate your assistance in clarifying documentation. Please respond to the clarification below the line at the bottom and electronically sign. The CDI & [facility] Coding staff will review the response and follow-up if needed. Please note: Queries are made part of the Legal Health Record. If you have any questions, please contact the author of this message via ITS. Dr. Justin Cortes Hypotensive Shock is documented in the Attending Progress Notes and requires further specificity Patient history/risk factors: Acute hypoxic respiratory failure, acute bilateral pulmonary infiltrate, tumor lysis syndrome, acute leukemic crisis, Acute promyelocytic leukemia, chronic atrial fib, MECHE, acute on chronic combined CHF Clinical Indicators: 08/31- 09/10 attending Progress notes: "Differential syndrome with treatment of APL-slow to respond -Hypotensive shock-requiring pressor support." 09/09 Attending Progress note: "Patient still spiking fever up to 1 or 2 today, could be due to sepsis versus his acute leukemic crisis. Assessment: Acute lung injury secondary to a AML treatment regimens Sepsis, fever with leukocytosis, and no source of infection, possible respiratory." 09/05 Cardiology Progress note: "New-onset cardiomyopathy with ejection fraction 30-35%, possibly tachycardia induced however apical hypokinesis possibly consistent with Takatsubo CMP. Hypotension on pressors " 08/30 1400 Vitals: HR 114, RR 12, B/P 80/61, Spo2 99% on 90% Bipap Treatment: 08/26-09/10 IVP Lasix, followed by Lasix gtt @10 08/30-09/10: Levophed titrate for b/p 3 units PRBC's transfused 5 Units Cyro transfused In your professional opinion, can you please specify the type of shock if known? Septic Shock Suspected or known causative organism Any associated organ failure Cardiogenic Shock Cause Hypovolemic Shock Cause Other, please specify Unable to determine (Last Revision: August 2017) Septic shock MTDD
== END 2020-09-10 23:01 | disposition expired | DRG 837 ==
LOC: 6NMEDSUR 16:29 → 3SCARD 08-26 15:55 → 2SICU 08-30 12:37
PROVIDERS: ADMIT Internal Medicine Hematology & Oncology; ATTEND Internal Medicine Hematology & Oncology
PROC: 3E03305 Introduction of Other Antineoplastic into Peripheral Vein, Percutaneous Approach (ICD-10-PCS; principal; 2020-08-25)
PROC: 0BH17EZ Insertion of Endotracheal Airway into Trachea, Via Natural or Artificial Opening (ICD-10-PCS; 2020-08-30)
PROC: 3E033XZ Introduction of Vasopressor into Peripheral Vein, Percutaneous Approach (ICD-10-PCS; 2020-08-30)
PROC: 5A1955Z Respiratory Ventilation, Greater than 96 Consecutive Hours (ICD-10-PCS; 2020-08-30)
PROC: 5A09357 Assistance with Respiratory Ventilation, Less than 24 Consecutive Hours, Continuous Positive Airway Pressure (ICD-10-PCS; 2020-08-30)
PROC: 0DH67UZ Insertion of Feeding Device into Stomach, Via Natural or Artificial Opening (ICD-10-PCS; 2020-08-30)
PROC: 0B9D8ZX Drainage of Right Middle Lung Lobe, Via Natural or Artificial Opening Endoscopic, Diagnostic (ICD-10-PCS; 2020-08-31)
PROC: 02HV33Z Insertion of Infusion Device into Superior Vena Cava, Percutaneous Approach (ICD-10-PCS; 2020-08-31)
PROC: 3E0G76Z Introduction of Nutritional Substance into Upper GI, Via Natural or Artificial Opening (ICD-10-PCS; 2020-08-31)
PROC: 30243M1 Transfusion of Nonautologous Plasma Cryoprecipitate into Central Vein, Percutaneous Approach (ICD-10-PCS; 2020-09-06)
PROC: 05HF33Z Insertion of Infusion Device into Left Cephalic Vein, Percutaneous Approach (ICD-10-PCS; 2020-09-07)
PROC: 30243N1 Transfusion of Nonautologous Red Blood Cells into Central Vein, Percutaneous Approach (ICD-10-PCS; 2020-09-07)
DX: Z51.11 Encounter for antineoplastic chemotherapy (principal); N17.0 Acute kidney failure with tubular necrosis; C92.40 Acute promyelocytic leukemia, not having achieved remission; E88.3 Tumor lysis syndrome; D65 Disseminated intravascular coagulation [defibrination syndrome]; J96.01 Acute respiratory failure with hypoxia; A41.9 Sepsis, unspecified organism; D61.810 Antineoplastic chemotherapy induced pancytopenia; I50.23 Acute on chronic systolic (congestive) heart failure; J15.6 Pneumonia due to other Gram-negative bacteria; R65.21 Severe sepsis with septic shock; J44.0 Chronic obstructive pulmonary disease with (acute) lower respiratory infection; D61.818 Other pancytopenia; D84.9 Immunodeficiency, unspecified; E87.0 Hyperosmolality and hypernatremia; I48.19 Other persistent atrial fibrillation; I51.81 Takotsubo syndrome; I48.3 Typical atrial flutter; I11.0 Hypertensive heart disease with heart failure; E11.65 Type 2 diabetes mellitus with hyperglycemia; Z66 Do not resuscitate; E78.5 Hyperlipidemia, unspecified; M19.91 Primary osteoarthritis, unspecified site; G47.33 Obstructive sleep apnea (adult) (pediatric); L40.9 Psoriasis, unspecified; E83.42 Hypomagnesemia; I08.0 Rheumatic disorders of both mitral and aortic valves; R14.0 Abdominal distension (gaseous); N40.0 Benign prostatic hyperplasia without lower urinary tract symptoms; D63.0 Anemia in neoplastic disease; D64.81 Anemia due to antineoplastic chemotherapy; E66.9 Obesity, unspecified; B00.9 Herpesviral infection, unspecified; I49.3 Ventricular premature depolarization; R74.02 Elevation of levels of lactic acid dehydrogenase [LDH]; T45.1X5A Adverse effect of antineoplastic and immunosuppressive drugs, initial encounter; T38.0X5A Adverse effect of glucocorticoids and synthetic analogues, initial encounter; Z68.34 Body mass index [BMI] 34.0-34.9, adult; Z71.3 Dietary counseling and surveillance; Z79.01 Long term (current) use of anticoagulants; Z86.73 Personal history of transient ischemic attack (TIA), and cerebral infarction without residual deficits; Z86.12 Personal history of poliomyelitis; Z98.42 Cataract extraction status, left eye; Z98.41 Cataract extraction status, right eye; Z80.52 Family history of malignant neoplasm of bladder; Z82.49 Family history of ischemic heart disease and other diseases of the circulatory system; Z79.899 Other long term (current) drug therapy; Z79.84 Long term (current) use of oral hypoglycemic drugs
CPT/HCPCS: 31624; 36410; 36600; 71045; 71046; 74018; 76937; 80053; 80162; 82805; 83010; 83036; 83605; 83615; 83735; 83880; 84100; 84132; 84145; 84550; 85025; 85027; 85045; 85379; 85384; 85610; 85730; 86644; 86663; 86664; 86665; 86705; 86706; 86787; 86803; 86850; 86880; 86900; 86901; 86920; 87040; 87070; 87075; 87077; 87086; 87102; 87116; 87186; 87205; 87206; 87252; 87281; 87324; 87340; 87390; 87496; 87498; 87502; 87529; 87634; 87798; 88108; 88305; 89050; 93005; 93306; 94002; 94003; 94660; 94760